=== PATIENT | male | born 1940 | race Caucasian/White ===

== ENCOUNTER 2018-09-07 09:06 | Emergency (ER) | payer MEDICARE, OTHER, SELFPAY ==
[2018-09-07 09:09] VITALS: BP 147/81; PULSE 75; RESP 18; TEMP 37.2; O2SAT 96; BMI 25.0
--- NOTE | 2018-09-07 09:20 | ED.VISSUMM ---
- ER Visit Summary Date of Service: 09/07/18 Chief Complaint: Right chest wall pain History of Present Illness: The patient is a 78 M who was given yesterday while hit the right side of his chest. He has no head injury no neck pain no loss of consciousness. He denies any other injury. He still has some pain of his chest this morning, went to get checked out. He did not his abdomen. He has pain only when he takes a deep breath but he is not short of breath. Pain is mild to moderate. Physical Examination: Not appear in acute distress. He ambulated to the emergency department quite well Moist mucous membranes, no obvious facial deformity No C-spine tenderness supple neck. Regular rate and rhythm without any obvious murmurs Clear lungs bilaterally speaking in full sentences without any obvious respiratory distress. He has reproducible right-sided chest wall pain but no obvious contusion. Abdomen soft and nontender no guarding or rebound Moves all extremities without any difficulty or pain. Skin does not show any obvious rashes or lesions, no trauma. Alert oriented ?3 with no gross focal deficit Emergency Department Course and Treatment: Chest x-ray with right rib series interpreted by me shows no fracture. Patient ambulated well into the emergency department he does not appear in distress. His lungs are clear. He will be discharged with reassurance. He does not require analgesia today. Disposition: Discharge stable condition Impression: Right-sided chest wall contusion This note was generated with [employer] dictation software. It may contain incorrect words, spelling, and punctuation that were not noted in review of the chart prior to signing ED Disposition - Plan for ED Patient: Disposition: Home or Assisted Living Chief Complaint: Chest Other Instructions: ED Contusion Chest Wall Referrals: NOT,DEFINED [NON-STAFF] - 3-5 Days if not improving
--- NOTE | 2018-09-07 09:40 | RAD_ITS ---
STUDY: X-RAY - UNILATERAL RIBS ( RIGHT ) WITH CHEST REASON FOR EXAM: Male, 78 years old. Posterolateral right-sided rib pain following a fall. TECHNIQUE - RIBS: 4 view(s) of the ribs. TECHNIQUE - CHEST: Single PA view of the chest. COMPARISON: None. FINDINGS - RIBS: There is fusion of the right eighth and ninth ribs anterolaterally. FINDINGS - CHEST: The lungs are clear and expanded. There is no demonstrated pleural abnormality. Normal size heart. Normal mediastinum and shashank. Normal visualized pulmonary arteries. Normal visualized aortic arch and descending thoracic aorta. Normal visualized thoracic spine. Normal visualized ribs, clavicles, and shoulders. There is no demonstrated abnormality of the visualized soft tissue structures of the upper abdomen. RAD/Ribs Uni Min 3V w/PA Chest IMPRESSION: RIBS: Normal x-ray examination of the ribs. CHEST: Normal x-ray examination of the chest. Electronically Signed: Johnny Mullen MD at 10:32 EST Tel [phone], Service support ,
[2018-09-07 10:14] VITALS: PULSE 66; RESP 16; O2SAT 99
== END 2018-09-07 10:15 | disposition home or self-care (01) ==
PROVIDERS: Emergency Provider Emergency Medicine; Family Provider Family Medicine; PCP Family Medicine
DX: S20.211A Contusion of right front wall of thorax, initial encounter (principal); R07.89 Other chest pain; W18.2XXA Fall in (into) shower or empty bathtub, initial encounter; Y93.E1 Activity, personal bathing and showering; Y92.9 Unspecified place or not applicable; Y99.9 Unspecified external cause status; E11.9 Type 2 diabetes mellitus without complications
CPT/HCPCS: 71101; 99282

== ENCOUNTER 2019-06-11 00:04 | Emergency (ER) | payer MEDICARE, OTHER, SELFPAY ==
[2019-06-11] VITALS (8 sets, daily range): BP systolic 100–157; BP diastolic 52–73; PULSE 63–79; RESP 12–18; TEMP 36.8; O2SAT 95–97; BMI 27.1
--- NOTE | 2019-06-11 00:24 | EKG12_ITS ---
Test Reason : CP Blood Pressure : / mmHG Vent. Rate : 073 BPM Atrial Rate : 073 BPM P-R Int : 202 ms QRS Dur : 086 ms QT Int : 384 ms P-R-T Axes : 041 036 033 degrees QTc Int : 423 ms Normal sinus rhythm Normal ECG Confirmed by EKTA CHAVEZ, NGOZI ([id number]), editor map TUYET GOLDEN ([id number]) on 06/15/2019 9:41:25 AM Referred By: DEVYN Confirmed By:JENNIFER DASH MD
--- NOTE | 2019-06-11 00:25 | RAD_ITS ---
STUDY: X-RAY CHEST REASON FOR EXAM: Male, 79 years old. Chest pain. TECHNIQUE: Single AP portable view of the chest. COMPARISON: September 07, 2018. FINDINGS: security monitor leads are present. The lungs are hyperexpanded. There is no obvious airspace consolidation, or pleural effusion. There is no demonstrated pleural abnormality. Normal size heart. Normal mediastinum and shashank. Normal visualized pulmonary arteries. There is atherosclerotic calcification of the aortic arch with tortuosity. There are diffuse degenerative changes of the visualized thoracic spine. Normal visualized ribs, clavicles, and shoulders. There is no demonstrated abnormality of the visualized soft tissue structures of the upper abdomen. RAD/Chest 1 View (Portable) IMPRESSION: No radiographic evidence of acute cardiopulmonary disease. Electronically Signed: Miladys Ordonez MD at 1:28 EDT , Service support ,
[2019-06-11] MEDS: Nitroglycerin SL (ED/IMG/CATH) 0.4 MG TABLET SUBLINGUAL ×2 (00:34→00:41)
[2019-06-11] MEDS: Aspirin 81 MG TAB.CHEW 324 MG PO (00:34)
[2019-06-11 00:40] LABS: Absolute Neutrophil Count 2.8 X10^3/uL (2.0-7.7); Basophil# 0.05 X10^3/uL; Basophil% 0.8 % (0-1); Eosinophils% 1.7 % (0-5); Hemoglobin 13.9 g/dL (13.0-16.5); Lymphocyte % 40.3 % (19-41); Mean Corp Hgb Conc 33.1 g/dL (32-36); Mean Corpuscular Hgb 30.5 pg (27.0-32.0); Mean Corpuscular Volume 92.1 fL (80-94); Mean Platelet Vol. 9.3 fl (6.2-12.0); Monocyte# 0.64 X10^3/uL; Monocyte% 10.7 % (0-10); NRBC Flagged by Analyzer 0 % (0-5); Neutrophil # 2.76 X10^3/uL (2.7-7.7); Neutrophil % 46.3 % (47-70); Platelet Count 172 K/mm3 (150-450); RBC Distribution Width CV 12.9 % (11.6-14.6); RBC Distribution Width SD 43.9 fl (35.1-43.9); Red Blood Count 4.56 M/mm3 (4.6-6.2)
[2019-06-11 00:54] LABS: Anion Gap 5 (5-15); BUN 13 mg/dL (7-18); BUN/Creat Ratio 12.3 RATIO (10-20); Calcium,Total 9.1 mg/dL (8.5-10.1); Chloride 105 mmol/L (98-107); Creatinine, Serum 1.06 mg/dL (0.70-1.30); EST Glomerular Filtration Rate 72 mL/min (>60); Est Glom Filt Rate - Afr Amer 87 mL/min (>60); Estimated Creatinine Clearance 62.02 ml/min; Glucose 99 mg/dL (74-106); Sodium Level 141 mmol/L (136-145)
--- NOTE | 2019-06-11 01:46 | ED.DCSUM_ITS ---
History of Present Illness Chief Complaint: Chest Pain Informant: Patient Onset: Today Context: Sudden Onset Timing: Continuous Quality: Pain Location: Left anterior chest radiating to axilla Current Severity: Mild Maximum Severity: Mild Worsened by: Nothing Relieved by: Nothing Associated Symptoms: No associated symptoms Narrative: Patient is a 79-year-old male with history of hypercholesterolemia and type 2 diabetes who presents with anterior left chest pain that started at 1900 while sitting. The pain radiated to his left axilla. He denies shortness of breath, dyspnea exertion, nausea or diaphoresis. He stated walking into the emergency department had no effect. He has no known history of coronary disease. He states he has stress test many years ago. He denies fever, chills night sweats. Denies rhinorrhea, congestion or postnasal drainage. Denies sore throat. Denies cough. He denies orthopnea or PND. He denies history of hiatal hernia or reflux. He denies black or maroon stool. He does have history of enlarged prostate. He denies any urinary symptoms. Prior similar symptoms: No Recent Illness/Hospitalization: No - Past Medical History (1) History of hypercholesterolemia Status: Acute (2) History of type 2 diabetes mellitus Status: Acute (3) History of BPH Status: Acute Past Medical History - Allergies and Home Meds Allergies/Adverse Reactions: Allergies Sulfa (Sulfonamide Antibiotics) Allergy (Verified 09/07/18 09:07) Fever and skin rash Tetanus Vaccines and Toxoid Allergy (Verified 09/07/18 09:07) Rash meperidine [From Demerol] Adverse Reaction (Verified 09/07/18 09:07) Vomiting Primary Care Physician: Perfecto Warner MD [Primary Care Provider] - Prior records reviewed: Yes Surgical History: noncontributory, - - 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 Denies: Palpitations, Heart racing Respiratory: Denies: Dyspnea, Cough, Dyspnea on exertion, Orthopnea, Paroxysmal nocturnal dyspnea Gastrointestinal: Denies: Abdominal pain, Nausea, Vomiting, Diarrhea, Melena, Hematochezia Genitourinary: Denies: Dysuria, Hematuria, Frequency Musculoskeletal: Denies: Myalgias, Arthralgias, Neck pain, Back pain, Swelling, Extremity Pain Skin: Denies: Rash, Wounds Neurological: Denies: Headache, Weakness, Numbness Hematologic: Denies: Easy bruising, Easy bleeding Physical Exam Vital Signs/Narrative: Vital Signs Temp Pulse Resp BP Pulse Ox 06/11/19 00:48 79 13 111/65 95 06/11/19 00:41 74 12 128/68 H 96 06/11/19 00:34 71 149/73 H 06/11/19 00:29 97 06/11/19 00:05 98.2 F 75 16 157/52 H 97 Inital Vital Signs reviewed: Yes General: Well nourished, Well developed, No Acute Distress Head: Normocephalic, Atraumatic Eyes: Perrl, EOMI. Negative for: Pale conjunctiva, Scleral icterus ENT: Moist mucous membranes, No rhinorrhea Neck: Supple, Nontender Cardiovascular: Regular rate, Regular rhythm, No murmurs Respiratory: No distress, CTA bilaterally, Chest nontender Abdomen: Soft, Nontender, Nondistended, Normal bowel sounds Back: Nontender, Normal Inspection. Negative for: CVA tenderness Extremities: Nontender, No edema, - - There is no asymmetry, swelling, discoloration, leg vein distention, palpable cords or tenderness along the distribution of the deep venous system.. Negative for: Calf Tenderness Skin: Normal color, No rash, No Trauma. Negative for: Cyanosis, Diaphoresis, Jaundice Neurological: Alert, Oriented x3, Cranial nerves II-XII grossly intact, Normal Strength, Normal Sensation Psychological: Normal affect, Normal Mood Diagnostic/Tx/Re-eval Impressions Chest X-Ray 06/11/19 00:25 IMPRESSION: No radiographic evidence of acute cardiopulmonary disease. Electronically Signed: Miladys Ordonez MD at 1:28 EDT , Service support , 06/11/19 00:25 Chest 1 View (Portable) [RAD] Stat Laboratory Results 06/11/19 06/11/19 06/11/19 00:20 00:20 03:15 WBC 6.0 RBC 4.56 L Hgb 13.9 Hct 42.0 MCV 92.1 MCH 30.5 MCHC 33.1 RDW Std Deviation 43.9 RDW Coeff of Daisy 12.9 Plt Count 172 MPV 9.3 Immature Gran % (Auto) 0.200 Neut % (Auto) 46.3 L Lymph % (Auto) 40.3 [place] % (Auto) 10.7 H Eos % (Auto) 1.7 Baso % (Auto) 0.8 Absolute Neuts (auto) 2.8 Absolute Lymphs (auto) 2.40 Nucleated RBC % 0 Sodium 141 Potassium 4.0 Chloride 105 Carbon Dioxide 31.0 Anion Gap 5 BUN 13 Creatinine 1.06 Estim Creat Clear Calc 62.02 Est GFR (MDRD) Af Amer 87 Est GFR (MDRD) Non-Af 72 BUN/Creatinine Ratio 12.3 Glucose 99 Calcium 9.1 Troponin I < 0.015 < 0.015 First troponin was with continuous pain for 5.5 hours. 3-hour delta is 0. Repeat EKG was normal. With heart score of 3 he is low risk and with 2 normal EKGs and 2 normal troponin and a delta of 0 he will be discharged home to follow-up with his primary care physician. - Rhythm Strip Rhythm Strip: Sinus Rhythm Rate: 76 Ectopy: None - EKG Initial EKG Interpretation: Sinus Rhythm - Normal sinus rhythm with ventricular rate of 73. AZ interval is 202 ms. QRS duration 86 ms. QT duration 384 ms. [place] is normal. The EKG is normal. Follow-up EKG Interpretation: Sinus Rhythm - Sinus rhythm with ventricular rate of 62. AZ interval is slightly prolonged at 216 ms. QRS duration 84 ms. QT duration 404 ms. [place] is normal. EKG reveals a sinus rhythm first-degree AV block. The AZ interval was slightly prolonged on the initial but not long enough to be considered a first-degree heart block. The EKG is unchanged from initial. Prior: Unchanged - Medical Decision Making Differential diagnosis is cardiac ischemia versus esophageal spasm versus esophagitis/gastritis versus pneumonia Patient received aspirin. He declined third nitro since first to had no effect. Patient's heart score is 3. His first troponin and EKG were normal. Recommended repeat troponin EKG at 3 hours. Differential diagnosis is cardiac ischemia, esophageal reflux, hiatal hernia, GERD, pneumonia With heart score of 3 2 normal EKGs to normal troponin and a delta of 0 with atypical pain not exacerbated by activity and no improvement with nitro patient was informed the cause of his chest pain is unknown. He is appropriate for ou tpatient follow-up and testing. ED Disposition - Plan for ED Patient: Disposition: Home or Assisted Living Diagnosis: Left-sided chest pain Instructions: CHEST PAIN, Uncertain Cause Referrals: Perfecto Warner MD [Primary Care Provider] - 3-5 Days
--- NOTE | 2019-06-11 03:12 | EKG12_ITS ---
Test Reason : REPEAT CP Blood Pressure : / mmHG Vent. Rate : 062 BPM Atrial Rate : 062 BPM P-R Int : 216 ms QRS Dur : 084 ms QT Int : 404 ms P-R-T Axes : 043 037 055 degrees QTc Int : 410 ms Sinus rhythm with 1st degree A-V block Otherwise normal ECG Confirmed by EKTA CHAVEZ, NGOZI ([id number]), editorial cartoonist TUYET GOLDEN ([id number]) on 06/15/2019 9:42:11 AM Referred By: DEVYN Confirmed By:JENNIFER DASH MD
== END 2019-06-11 04:35 | disposition home or self-care (01) ==
PROVIDERS: Emergency Provider Emergency Medicine; Family Provider Family Medicine; PCP Family Medicine
DX: R07.89 Other chest pain (principal); I44.0 Atrioventricular block, first degree; E78.00 Pure hypercholesterolemia, unspecified; E11.9 Type 2 diabetes mellitus without complications; N40.0 Benign prostatic hyperplasia without lower urinary tract symptoms; Z85.47 Personal history of malignant neoplasm of testis; Z79.84 Long term (current) use of oral hypoglycemic drugs; Z79.899 Other long term (current) drug therapy
CPT/HCPCS: 36415; 71045; 80048; 84484; 85025; 93005; 99285; A4216

== ENCOUNTER 2020-09-26 21:59 | Emergency (ER) | payer MEDICARE, OTHER, SELFPAY ==
[2019-06-11 00:05] VITALS: BMI 27.1
[2020-09-26 22:00] VITALS: BP 156/88; PULSE 74; RESP 16; TEMP 37; O2SAT 98; BMI 26.8
--- NOTE | 2020-09-26 22:24 | EKG12_ITS ---
Test Reason : CP Blood Pressure : / mmHG Vent. Rate : 075 BPM Atrial Rate : 075 BPM P-R Int : 218 ms QRS Dur : 082 ms QT Int : 374 ms P-R-T Axes : 053 037 038 degrees QTc Int : 417 ms Sinus rhythm with 1st degree A-V block Otherwise normal ECG Confirmed by EKTA CHAVEZ, NGOZI ([id number]), website/blog editor DANNY MAYO ([id number]) on 10/01/2020 11:09:33 AM Referred By: TOYA Confirmed By:JENNIFER DASH MD
--- NOTE | 2020-09-26 22:25 | RAD_ITS ---
patient with intermittent chest pain that started this morning. started on the right side now has moved to middle of his chest. patient states has the pain about every hour and pain only lasts a few minutes. EXAMINATION/TECHNIQUE: XR Chest 1 View: COMPARISON: June 11, 2019 FINDINGS: LINES/DEVICES: None. LUNGS: No consolidation, edema or effusion. No pneumothorax. MEDIASTINUM AND CARDIOVASCULAR STRUCTURES: Cardiac silhouette not enlarged. Central airways and mediastinal contour are unremarkable. BONES AND SOFT TISSUES: Unremarkable. RAD/Chest 1 View (Portable) IMPRESSION: No radiographic evidence of acute cardiopulmonary disease. at 2247 Reported and signed by: Es Salas DO Electronically Signed: Es Salas DO at 22:45 EST Tel , Service support ,
[2020-09-26 22:26] VITALS: O2SAT 98
[2020-09-26 22:43] LABS: Absolute Lymphocyte Count 1.93 X10^3/uL (0.83-4.51); Absolute Neutrophil Count 3.7 X10^3/uL (2.0-7.7); Basophil# 0.06 X10^3/uL; Basophil% 0.9 % (0-1); Eosinophil# 0.07 X10^3/uL; Eosinophils% 1.1 % (0-5); Hematocrit 41.9 % (40-54); Lymphocyte # 1.93 X10^3/ul (4.0); Lymphocyte % 30.5 % (19-41); Mean Corp Hgb Conc 33.4 g/dL (32-36); Mean Corpuscular Hgb 30.5 pg (27.0-32.0); Mean Corpuscular Volume 91.3 fL (80-94); Mean Platelet Vol. 9.5 fl (6.2-12.0); Monocyte# 0.56 X10^3/uL; Monocyte% 8.8 % (0-10); NRBC Flagged by Analyzer 0 % (0-5); Neutrophil % 58.5 % (47-70); Platelet Count 181 K/mm3 (150-450); RBC Distribution Width CV 12.7 % (11.6-14.6); RBC Distribution Width SD 42.2 fl (35.1-43.9); Red Blood Count 4.59 M/mm3 (4.6-6.2); White Blood Count 6.3 K/mm3 (4.4-11.0)
--- NOTE | 2020-09-26 22:49 | ED.VIS.GEN ---
History of Present Illness Chief Complaint: Chest Pain Narrative: Patient presents with chest pain that started earlier this morning he is describing periods of 1 to 2 seconds of sharp pain on his right chest that completely goes away. He is currently asymptomatic. There is no radiation of the pain. He has no back pain or tearing sensation he has no pleuritic component. He has no calf pain or leg pain he has no DVT or PE risk factors. Past medical history: Hypercholesterolemia, type 2 diabetes Medications: Reviewed Social history: Noncontributory Review of systems: All systems negative except as indicated General: Denies: Fever Eyes: Denies: Visual changes - bilaterally ENT: Denies: Rhinorrhea, Sore throat Cardiovascular: Chest pain as in HPI Respiratory: Denies: Dyspnea, Cough Gastrointestinal: Denies: Abdominal pain, Nausea, Vomiting Genitourinary: Denies: Dysuria Musculoskeletal: Denies: Myalgias Skin: Denies: Rash Neurological: Denies: Headache, no focal weakness Psych: Reports: negative Hematologic: Denies: Easy bruising, Easy bleeding Physical exam General: Well nourished, Well developed, No Acute Distress Head: Normocephalic, Atraumatic Eyes: Conjunctiva not pale ENT: Moist mucous membranes Neck: Supple, Nontender, No lymphadenopathy Cardiovascular: Regular rate, Regular rhythm Respiratory: No distress, CTA bilaterally Abdomen: Soft, Nontender, Nondistended Back: Nontender, Normal Inspection. Negative for: CVA tenderness Extremities: Nontender, No edema Skin: Normal color, No rash Neurological: Alert, Normal Strength, Normal Sensation Psychological: Normal affect Past Medical History - Allergies and Home Meds Allergies/Adverse Reactions: Allergies Sulfa (Sulfonamide Antibiotics) Allergy (Verified 09/26/20 22:03) Fever and skin rash Tetanus Vaccines and Toxoid Allergy (Verified 09/26/20 22:03) Rash meperidine [From Demerol] Adverse Reaction (Verified 09/26/20 22:03) Vomiting Primary Care Physician: Perfecto Warner MD [Primary Care Provider] - 2 Days Surgical History: noncontributory, - - 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 Normal [place] and QTc intervals. No ischemic changes. Interpreted by emergency doctor. - Medical Decision Making She has a heart score of 3. Work-up is otherwise unremarkable I am not worried about cardiac etiology with 1 to 2-second episodes of sharp right sided stabbing pain. I am reassured with the normal EKG and troponin. Patient can follow-up with his doctor as needed. He has no PE or DVT risk factors. ED Disposition - Plan for ED Patient: Disposition: Home or Assisted Living Diagnosis: Chest pain Instructions: ED Chest Pain, Uncertain Cause Referrals: Perfecto Warner MD [Primary Care Provider] - 2 Days
[2020-09-26 23:12] LABS: Anion Gap 5 (5-15); BUN 17 mg/dL (7-18); Calcium,Total 8.8 mg/dL (8.5-10.1); Chloride 102 mmol/L (98-107); Creatinine, Serum 1.06 mg/dL (0.70-1.30); EST Glomerular Filtration Rate 71 mL/min (>60); Est Glom Filt Rate - Afr Amer 86 mL/min (>60); Estimated Creatinine Clearance 61.01 ml/min; Glucose 94 mg/dL (74-106); Potassium 3.9 mmol/L (3.5-5.1); Sodium Level 137 mmol/L (136-145)
[2020-09-26 23:17] VITALS: BP 96/78; PULSE 72; RESP 15; O2SAT 97
== END 2020-09-26 23:24 | disposition home or self-care (01) ==
PROVIDERS: Emergency Provider Emergency Medicine; PCP Family Medicine
DX: R07.9 Chest pain, unspecified (principal); E11.9 Type 2 diabetes mellitus without complications; Z87.891 Personal history of nicotine dependence; Z85.47 Personal history of malignant neoplasm of testis; Z90.79 Acquired absence of other genital organ(s); Z79.84 Long term (current) use of oral hypoglycemic drugs
CPT/HCPCS: 71045; 80048; 84484; 85025; 93005; 99284; A4216

== ENCOUNTER 2021-05-22 19:57 | Emergency (ER) | payer MEDICARE, OTHER, SELFPAY ==
[2021-05-22 19:58] VITALS: BP 167/87; PULSE 83; RESP 16; TEMP 36.4; O2SAT 100; BMI 25.0
--- NOTE | 2021-05-22 20:05 | RAD_ITS ---
STUDY: X-RAY - LEFT FOOT CLINICAL: Male, 81 years old. INJURY -- 5TH TOE PATIENT KICKED FOOT INTO DOOR COMPLAINING OF LEFT 5TH TOE PAIN. TECHNIQUE: 3 view(s) of the foot. COMPARISON: None. FINDINGS: Normal talus, calcaneus, and tarsal bones. Normal visualized subtalar, talonavicular, calcaneocuboid, tarsal and tarsometatarsal articulations. Normal metatarsi. Normal metatarsophalangeal joint of the great toe. Normal tibial and fibular sesamoid bones. Normal interphalangeal joint of the great toe. Normal phalanges of the great toe. Normal second through fifth metatarsophalangeal joints. The IP joints of the lesser toes are mildly narrowed. The soft tissue structures are unremarkable. There is no demonstrated fracture. RAD/Foot min 3 Views IMPRESSION: No visualized acute process Electronically Signed: Garrett Bello MD at 21:04 EDT , Service support ,
--- NOTE | 2021-05-22 21:57 | EDS_ITS ---
HPI History of Present Illness Chief Complaint: Lower Extremity Injury Detail of Chief Complaint: Injury to left foot that occurred yesterday Informant: patient Narrative Narrative: Patient presents to the emergency department complaint of injury to left foot that occurred yesterday. Patient states he accidentally kicked a closet door with his foot. Patient initially did not think much of it but today he noticed increased redness and swelling and became concerned. Patient denies any fever or chills. Patient is a diabetic. PFSH PFSH Home Medications Tamsulosin Hcl 0.4 mg PO DAILY 09/07/18 [History Last Taken Unknown] finasteride 5 mg PO DAILY 09/07/18 [History Last Taken Unknown] metformin 1,000 mg PO DAILY 09/07/18 [History Last Taken Unknown] cephalexin 500 mg PO Q6 #40 capsule 05/22/21 [Rx Last Taken Unknown] Allergy/AdvReac Type Severity Reaction Status Date / Time Sulfa (Sulfonamide Allergy Fever and Verified 05/22/21 20:00 Antibiotics) skin rash Tetanus Vaccines and Toxoid Allergy Rash Verified 05/22/21 20:00 meperidine [From Demerol] AdvReac Vomiting Verified 05/22/21 20:00 Social History Smoking Status: Former smoker ROS ROS ED Constitutional Constitutional ED: Reports systems reviewed and no addt'l complaints, except as documented; Denies body ache(s), change in weight or chills Eyes Eyes: Denies acute decrease in peripheral vision, change in vision, double vision or loss of vision ENT ENT ED: Reports none; Denies ear pain, lip swelling, loss taste/smell, neck pain, otalgia or sore throat Cardiovascular Cardiovascular: Reports none; Denies abdominal pain, chest pain with activity, leg edema, lightheadedness, palpitations, rapid heart rate or syncope Respiratory/Chest Respiratory/Chest: Reports none; Denies change in mental status, dry cough, dyspnea, hemoptysis, shortness of breath at rest or shortness of breath with exertion Gastrointestinal Gastrointestinal: Reports none; Denies abdominal pain, change in stool character, diarrhea, hematemesis, hematochezia, melena, rectal bleeding or vomiting Genitourinary Genitourinary ED: Reports none; Denies abdominal discomfort, anuria, dysuria, genital pain or polyuria Musculoskeletal Musculoskeletal: Reports none and other Details: Left foot pain ; Denies arthralgias, back pain, difficulty walking, extremity pain, muscle weakness or myalgias Integumentary Reports none; Denies abscess or rash Neurologic Neurologic: Reports none; Denies abnormal gait, confusion, focal weakness, frequent falls, headache(s), loss of vision, numbness, paresthesias, radicular pain, vertigo or weakness Psychiatric Psychiatric: Reports systems reviewed and no addt'l complaints, except as documented and none; Denies behavioral changes, confusion, difficulty concentrating, hallucinations, suicidal ideation, tactile hallucinations or visual hallucinations Endocrine Endocrinology: Denies none, cold intolerance, excessive sweating, fatigue or heat intolerance Hematologic/Lymphatic Hematologic/Lymphatic: Reports none; Denies anemia, easy bleeding or easy bruising Allergic/Immunologic Allergic/Immunologic ED: Denies as per HPI, none, lip swelling, mouth swelling, throat swelling, tongue swelling or hives EXAM Physical Exam Const Vital Signs: 05/22/21 19:58 Temperature 97.5 F L Temperature Source Temporal Pulse Rate 83 Respiratory Rate 16 Blood Pressure 167/87 H Blood Pressure Mean 113 Pulse Ox 100 Oxygen Delivery Method Room Air Positive well nourished and well developed General Appearance ED: well developed and NAD HEENT Reports TM's clear and moist mucous membranes normocephalic and atraumatic; Negative for trauma or tenderness Tympanic Membrane ED: Yes TM's clear Eyes PERRL and EOMs intact bilaterally General Eye ED: Negative for pale conjunctiva or scleral icterus Neck no lymphadenopathy, supple and no JVD General: Negative for tenderness Chest Wall inspection of chest normal and palpation of chest normal Chest: Negative for tenderness Resp normal respiratory effort and clear to auscultation bilaterally Effort and Inspection: Negative for respiratory distress or pain with movement Auscultation: Negative for rhonchi, wheezes or diminished lung sounds Cardio regular rate, regular rhythm, S1 normal heart sound, S2 normal heart sound and no murmurs Peripheral Pulses: pulses 2+ throughout GI normal to inspection, nondistended, normoactive bowel sounds, soft to palpation, non-tender, non-distended and no masses Back/Spine no CVA tenderness and no thoracic nor lumbar tenderness Extremity Extremity Narrative: Evaluation of the left foot does reveal erythema and some ecchymosis to the fifth toe with erythema extending onto the distal portion of the foot and the fifth MTP joint. No obvious deformity. Neurovascular intact. General Extremety ED: Negative for edema General Extremity: Negative for edema Neuro oriented x3, CN's II-XII intact bilaterally, no sensory deficits noted and gait normal Sensorium / Orientation: awake, alert, oriented to person, oriented to place and oriented to time Motor Exam: strength 5/5 throughout and strength abnormal Psych mental status grossly normal Skin no rashes or lesions noted and no wounds MDM MDM MDM Narrative Medical decision making narrative: X-rays unremarkable for fracture. I am concerned he may be developing a cellulitis. Patient will be started on Keflex. Patient advised to use ibuprofen or Tylenol for discomfort. Patient to follow- up for wound check in 3 to 5 days with his primary care physician. Patient to return if increasing pain, redness, swelling, fevers, chills, or condition should worsen anyway. Radiography Diagnostic Testing: Radiology Impression Foot X-Ray 05/22/21 20:05 IMPRESSION: No visualized acute process Electronically Signed: Garrett Bello MD at 21:04 EDT , Service support , Three-view x-rays left foot obtained interpreted by myself as no acute fractures or dislocations. Radiology in agreement. Discharge Plan Triage Chief Complaint: Lower Extremity Injury ED Provider: Jose Desir Dx/Rx/DC Orders Clinical Impression: Contusion of foot, Cellulitis Instructions: ED Cellulitis, ED Foot Contusion Prescriptions: New cephalexin [cephalexin] 500 MG capsule 500 mg PO Q6 Qty: 40 RF: 0 No Action metformin 500 MG tablet 1,000 mg PO DAILY RF: 0 finasteride 5 MG tablet 5 mg PO DAILY RF: 0 Tamsulosin Hcl 0.4 MG capsule 0.4 mg PO DAILY RF: 0 Primary Care Provider: Perfecto Warner Referrals: Perfecto Warner MD [Primary Care Provider] - Disposition Disposition: Home, Self Care
[2021-05-22] MEDS: Cephalexin 250 MG Capsule 500 MG PO (22:17)
== END 2021-05-22 22:23 | disposition home or self-care (01) ==
LOC: ED 22:11
PROVIDERS: Emergency Provider Emergency Medicine; PCP Family Medicine
DX: S90.32XA Contusion of left foot, initial encounter (principal); W22.09XA Striking against other stationary object, initial encounter; Y93.9 Activity, unspecified; Y92.9 Unspecified place or not applicable; Y99.9 Unspecified external cause status; L03.116 Cellulitis of left lower limb; E11.9 Type 2 diabetes mellitus without complications; Z79.84 Long term (current) use of oral hypoglycemic drugs; Z87.891 Personal history of nicotine dependence
CPT/HCPCS: 73630; 99283

== ENCOUNTER → 2022-01-13 | Outpatient (CLI) | payer MEDICARE, OTHER, SELFPAY ==
--- NOTE | 2022-01-13 | PROSBIL_PTH ---
PATIENT: TANISHA SALTER LOC: [facility] U#:[id number] AGE/SX: 81/M ROOM: RE01/13/[address]: Dr. Parish Art MD : 1940 BED: DIS: 01/13/2022 SPEC #: [id number] RECD: 01/13/22 16:15 STATUS: JEREMIE ROUSEAshley #: [id number] SALUD: 01/13/22 00:[address]: Parish Art DEPT: SURGICAL PATHOLOGY RECD BY: Pratibha Caldwell ENTERED: 01/14/22 08:07 SP TYPE: PROST BX ELISA DR: Dr. Perfecto Warner MD Tissues: A - PROSTATE RIGHT B - PROSTATE RIGHT C - PROSTATE RIGHT D - PROSTATE LEFT E - PROSTATE LEFT F - PROSTATE LEFT Procedures: PROSTATE BX HEADER OPERATION: Prostate biopsy PRE-OP DIAGNOSIS: Elevated PSA TISSUE SUBMITTED: A - Right apex, B - Right mid, C - Right base, D - Left apex, E - Left mid, F - Left base MICROSCOPIC DIAGNOSIS A. Right prostate, apex, core biopsy: Prostatic tissue, negative for malignancy. B. Right prostate, mid, core biopsy: Prostatic tissue, negative for malignancy. C. Right prostate, base, core biopsy: Prostatic tissue, negative for malignancy. D. Left prostate, apex, core biopsy: Prostatic tissue, negative for malignancy. E. Left prostate, mid, core biopsy: Prostatic tissue, negative for malignancy. F. Left prostate, base, core biopsy: Prostatic adenocarcinoma. Tuckerman grade: 3+4=7 Number of cores involved: 08/31 Proportion of tissue involved: ~50% Perineural invasion: Not identified. Greatest tumor length: 0.4 cm SJ:luciana 01/15/2022 COMMENT Case has been reviewed in consultation with Dr. Martinez who concurs with the above diagnosis. IDC:AM MICROSCOPIC DESCRIPTION Slides are reviewed. GROSS DESCRIPTION A - Received is one container designated prostate, right apex. The specimen consists of one elongated fragment of light carney-white soft tissue measuring 1 cm in length and 0.1 cm in diameter. The specimen is totally submitted in one cassette. B - Received is one container designated prostate, right mid. The specimen consists of one elongated fragment of light carney-white soft tissue measuring 0.9 cm in length and 0.1 cm in diameter. The specimen is totally submitted in one cassette. C - Received is one container designated prostate, right base. The specimen consists of one elongated fragment of light carney-white soft tissue measuring 0.8 cm in length and 0.1 cm in diameter. The specimen is totally submitted in one cassette. D - Received is one container designated prostate, left apex. The specimen consists of one elongated fragment of light carney-white soft tissue measuring 0.8 cm in length and 0.1 cm in diameter. The specimen is totally submitted in one cassette. E - Received is one container designated prostate, left mid. The specimen consists of one elongated fragment of light carney-white soft tissue measuring 1 cm in length and 0.1 cm in diameter. The specimen is totally submitted in one cassette. F - Received is one container designated prostate, left base. The specimen consists of one elongated fragment of light carney-white soft tissue measuring 0.9 cm in length and 0.1 cm in diameter. The specimen is totally submitted in one cassette. / SJ:rg 01/14/2022 TC:0 CPT: G0146
== END | disposition home or self-care (01) ==
LOC: LABSPEC 16:49
PROVIDERS: PCP Family Medicine; Visit Provider Urology
DX: C61 Malignant neoplasm of prostate (principal)
CPT/HCPCS: 88305; G0416

== ENCOUNTER → 2022-02-12 | Outpatient (CLI) | payer MEDICARE, OTHER, SELFPAY ==
--- NOTE | 2022-02-12 13:57 | MRI_ITS ---
MR Pelvis Male WO/W Contrast 02/12/2022 2:25 PM COMPARISON: None CLINICAL HISTORY: 81-year-old male with known prostate cancer. TECHNIQUE: Standard prostate MRI protocol was used before and after administration of 18 cc of Dotarem. FINDINGS: Prostate volume: 31 cc PSA density: PSA level not provided. Length of membranous urethra: 12 mm Post-biopsy hemorrhage: Yes Multiparametric MR evaluation: Heterogeneous appearance of the central gland is consistent with benign prostatic hyperplasia. Lesion 1: LOCATION - 1.3 x 0.9 cm moderately T2 hypointense lesion in the left lateral transitional zone at mid gland which is bright on DWI and dark on ADC map. There is extraprostatic extension by 3 mm laterally. T2 - 4 DWI - 4 DCE - positive Overall PI-RADS v2 score = 4 Capsular margin and neurovascular bundle: Extraprostatic extension by 3 mm laterally to the left. Seminal vesicles: Questionable involvement of the left seminal vesicle. Lymph nodes: Enlarged 1.5 cm left external iliac node. Bones: No suspicious lesions in the field of view. MRI/Pelvis W/WO Contrast IMPRESSION: 1.3 cm PI-RADS 4 lesion in the left lateral TZ at mid gland with extraprostatic extension laterally by 3 mm, left external iliac lymphadenopathy and questionable involvement of the left seminal vesicle. Electronically Signed: Dmitry Aguilar MD at 23:40 EDT ,
[2022-02-12 14:21] LABS: CREATININE FINGERSTICK 0.9 mg/dL (0.70-1.30); EGFR FINGERSTICK > 60.0000 mL/min (>60)
== END | disposition home or self-care (01) ==
PROVIDERS: PCP Family Medicine; Visit Provider Student in an Organized Health Care Education/Training Program
DX: C61 Malignant neoplasm of prostate (principal)
CPT/HCPCS: 72197; A9575

== ENCOUNTER 2022-04-16 09:31 | Day surgery (SDC) | payer MEDICARE, OTHER, SELFPAY ==
[2022-04-16 09:50] VITALS: BP 146/84; PULSE 72; RESP 16; TEMP 36.2; O2SAT 99; BMI 24.9
[2022-04-16] MEDS: Lactated Ringers 1,000 ML 15 ML IV (10:00)
[2022-04-16 10:21] LABS: Bedside Glucose 127 mg/dL (74-106)
[2022-04-16] MEDS: Cefazolin 2 GM in 0.9% Normal Saline 100 ML IV (12:08)
--- NOTE | 2022-04-16 12:19 | DCINST_ITS ---
Discharge Instructions Diet Discharge Diet: No restrictions Activity Discharge Activity: Return to Normal Activity and No Restrictions Follow Up Care Test Results: Test results from this visit will be discussed in further detail at your follow- up appointment, if applicable. Discharge Plan Admission Primary Reason for Your Visit: prostate markers Attending Provider: Parish Art Primary Care Provider: Perfecto Warner Discharge Orders/Prescriptions Prescriptions: New ciprofloxacin HCl [Cipro] 500 mg tablet 500 mg PO BID Qty: 10 0RF Continued pravastatin 20 mg tablet 20 mg PO DAILY metformin 500 MG tablet 500 mg PO DAILY finasteride 5 MG tablet 5 mg PO DAILY Tamsulosin Hcl 0.4 MG capsule 0.4 mg PO BID ciprofloxacin HCl 500 mg tablet 500 mg PO BID Referrals / Follow Up: Perfecto Warner MD [Primary Care Provider] - Parish Art MD [Med Staff - Active Staff] - Disposition Disposition (needs filled in before D/C Order can be placed): Home, Self Care
--- NOTE | 2022-04-16 12:19 | PCM.HP.STD ---
HPI - General General Date of Service: 04/16/22 HPI Narrative TANISHA SALTER, is a 82 M who presents for placement for gold markers and spacer [facility] Medical History (Updated 04/09/22 @ 10:12 by Rose Mary Ordonez) Arthritis Back pain Cancer Diabetes High cholesterol Testicular cancer Wears dentures Home Medications Tamsulosin Hcl 0.4 mg PO BID 09/07/18 [History Last Taken 04/16/22] finasteride 5 mg tablet 5 mg PO DAILY 09/07/18 [History Last Taken Unknown] metformin 500 mg tablet,extended release 24 hr 500 mg PO DAILY 09/07/18 [History Last Taken Unknown] pravastatin 20 mg tablet 20 mg PO DAILY 01/30/22 [History Last Taken Unknown] ciprofloxacin HCl 500 mg tablet 500 mg PO BID 04/09/22 [History Last Taken Unknown] ciprofloxacin HCl 500 mg tablet (Cipro) 500 mg PO BID #10 tabs 04/16/22 [Rx Last Taken Unknown] Allergy/AdvReac Type Severity Reaction Status Date / Time Sulfa (Sulfonamide Allergy Fever and Verified 04/16/22 09:49 Antibiotics) skin rash Tetanus Vaccines and Toxoid Allergy Rash Verified 04/16/22 09:49 meperidine [From Demerol] AdvReac Vomiting Verified 04/16/22 09:49 Family History Father Heart disease Diabetes Mother Myocardial infarction Alzheimer disease Grandmother Cancer Sister Breast cancer Surgical History (Updated 04/09/22 @ 10:12 by Rose Mary Ordonez) History of removal of testicle Hx of knee surgery Social History Smoking Status: Never smoker Tobacco: How many years used: 30 alcohol intake: current alcohol intake frequency: holidays/special occasions only substance use type: does not use diet: diabetic Vital Signs Vital Signs Vital Signs: 04/16/22 09:50 04/16/22 09:50 Temperature 97.2 F L Temperature Source Temporal Pulse Rate 72 Respiratory Rate 16 Respiratory Pattern Normal Blood Pressure 146/84 H Blood Pressure Mean 104 Blood Pressure Source Monitor Blood Pressure Position Semi-Fowlers Blood Pressure Location Left Arm Pulse Ox 99 Oxygen Delivery Method Room Air Weight Weight: 83.461 kg Body Mass Index (BMI) 24.9 Results Lab / Micro Data Labs: Laboratory Results - last 24 hr 04/16/22 09:56: POC Glucose 127 H
--- NOTE | 2022-04-16 12:20 | OP.PCM_ITS ---
Report of Operation Date of Procedure: 04/16/22 Pre-Operative Diagnosis: prostate cancer Post-Operative Diagnosis: same Surgery/Procedure Performed:: gold markers and spacer gel matrix Description of Surgical Findings:: Patient was taken back to the operating room after smooth induction of anesthesia he was placed supine on the table. The genitals and perineum were prepped and draped in usual sterile fashion. I then introduced a biplanar ultrasound probe into the rectum and performed ultrasonography and identified the Denonvilliers' fascia the prostate mid base and apex and seminal vesicles. The spacer gel mix was then prepared on the back table per manufactures instruction. Under ultrasound guidance in the midline perineum a bevel needle down we advanced through the perineum below the prostate into the space of Denonvilliers' fascia. This space which could be identified by ultrasound with a bright white layer between the prostate and the rectum. I then injected a puff of normal saline to identify the space further. After I confirmed that the needle was in the correct space in the mid prostate and the space of Denonvilliers' fascia between the rectum and the prostate. Then over the course of 15 seconds the gel matrix was injected slowly there was nice separation between the prostate and the rectum at the gel matrix was injected. The position of the gel matrix was confirmed by ultrasound. Then the injection needle was removed intact. The penis and testicles were prepped and draped in usual sterile fashion, ultrasound probe was placed into the rectum and biplanar ultrasound was performed on the prostate. Identified the base mid and apex of the prostate identified the transition zone prostate. Then using a needle the first outboard motor inspector was placed into the right base of the prostate, the second outboard motor inspector was placed in the left base of the prostate, and the third core marker was placed in the right apex of the prostate after all 3 markers were placed the placement of the markers were confirmed by ultrasonography. Patient's perineum was cleaned patient was taken out of stirrups and then taken back to the PACU in good condition. Surgeon: Parish Art Type of Anesthesia: General
[2022-04-16] MEDS: 0.9% Normal Saline (Pres. free 10 ML Vial (12:26)
[2022-04-16 12:40] VITALS: BP 122/73; BP 146/84; PULSE 69; RESP 16; TEMP 36.2; O2SAT 98
[2022-04-16 12:45] VITALS: BP 122/72; BP 146/84; PULSE 63; RESP 16; O2SAT 98
[2022-04-16 13:00] VITALS: BP 125/75; BP 146/84; PULSE 63; RESP 16; O2SAT 98
[2022-04-16 13:05] VITALS: BP 146/84; PULSE 64; RESP 16; TEMP 36.3; O2SAT 99
[2022-04-16 13:20] VITALS: BP 146/84
== END 2022-04-16 13:38 | disposition home or self-care (01) ==
LOC: SDC 09:32 → AC 09:33
PROVIDERS: PCP Family Medicine; Visit Provider Urology
PROC: (CPT 55874; principal; 2022-04-16 11:30)
DX: C61 Malignant neoplasm of prostate (principal); C77.5 Secondary and unspecified malignant neoplasm of intrapelvic lymph nodes; E11.9 Type 2 diabetes mellitus without complications; R97.20 Elevated prostate specific antigen [PSA]; E78.00 Pure hypercholesterolemia, unspecified; Z79.84 Long term (current) use of oral hypoglycemic drugs; Z79.899 Other long term (current) drug therapy; M19.90 Unspecified osteoarthritis, unspecified site
CPT/HCPCS: 55876; 55874; 00902; 82962; J7120; J2405; J3490

== ENCOUNTER → 2022-04-22 | Outpatient (CLI) | payer MEDICARE, OTHER, SELFPAY ==
--- NOTE | 2022-04-22 12:23 | MRI_ITS ---
MR Prostate WO/W Contrast 04/22/2022 12:54 PM COMPARISON: 02/12/2022 CLINICAL HISTORY: 82 year old man with prostate cancer. TECHNIQUE: Axial T1-weighted and high-resolution axial T2-weighted MR images of the pelvis were obtained. Images were acquired for planning of radiation therapy. MRI/Pelvis W/WO Contrast IMPRESSION: 1) MR imaging scan done for planning of radiation therapy of prostate cancer. 2) Heterogeneous appearance of the gland is at least in part due to the known prostate cancer, as well as being consistent with benign prostatic hyperplasia. 3) No seminal vesicle involvement 4) No definite extraprostatic extension 5) Suspicious left external iliac lymphadenopathy END OF IMPRESSION: Electronically Signed: Dmitry Aguilar MD at 23:04 EDT ,
[2022-04-22 13:05] LABS: EGFR FINGERSTICK > 60.0000 mL/min (>60)
== END | disposition home or self-care (01) ==
LOC: MRI 12:23
PROVIDERS: PCP Family Medicine; Referring Provider Student in an Organized Health Care Education/Training Program; Visit Provider Student in an Organized Health Care Education/Training Program
DX: C61 Malignant neoplasm of prostate (principal); C77.5 Secondary and unspecified malignant neoplasm of intrapelvic lymph nodes
CPT/HCPCS: 72197; A9575

== ENCOUNTER 2022-05-24 01:30 | Emergency (ER) | payer MEDICARE, OTHER, SELFPAY ==
[2022-05-24 01:37] VITALS: BP 151/77; PULSE 64; RESP 18; TEMP 36.6; O2SAT 100; BMI 24.7
--- NOTE | 2022-05-24 02:10 | EX.ED.DYSGE1 ---
HPI History of Present Illness Chief Complaint: Complaint Narrative Narrative: Patient is an 82-year-old male with history of type 2 diabetes BPH and prostate cancer. He is currently undergoing radiation for his cancer. He states that he is intermediate through and over the last few days has noticed that all he does is dribble. He states he feels that he can never completely empty his bladder. He brought these issues up with his oncologist who recommended he see his urologist for possible Zavala catheter placement. Patient states today he is going to see his urologist next week but he felt like his symptoms were progressing and therefore he comes to the hospital for evaluation [facility] Medical History Arthritis Back pain Cancer Diabetes High cholesterol Testicular cancer Wears dentures Home Medications Tamsulosin Hcl 0.4 mg PO BID 09/07/18 [History Last Taken 04/16/22] finasteride 5 mg tablet 5 mg PO DAILY 09/07/18 [History Last Taken Unknown] metformin 500 mg tablet,extended release 24 hr 500 mg PO DAILY 09/07/18 [History Last Taken Unknown] pravastatin 20 mg tablet 20 mg PO DAILY 01/30/22 [History Last Taken Unknown] oxybutynin chloride 5 mg tablet 5 mg PO BID #30 tabs 05/20/22 [Rx Last Taken Unknown] Allergy/AdvReac Type Severity Reaction Status Date / Time Sulfa (Sulfonamide Allergy Fever and Verified 05/20/22 08:11 Antibiotics) skin rash Tetanus Vaccines and Toxoid Allergy Rash Verified 05/20/22 08:11 meperidine [From Demerol] AdvReac Vomiting Verified 05/20/22 08:11 Family History Father Heart disease Diabetes Mother Myocardial infarction Alzheimer disease Grandmother Cancer Sister Breast cancer Surgical History History of removal of testicle Hx of knee surgery Social History Smoking Status: Never smoker Tobacco: How many years used: 30 alcohol intake: current alcohol intake frequency: holidays/special occasions only substance use type: does not use diet: diabetic ROS ROS ED Constitutional Constitutional ED: Denies chills or fever(s) ENT ENT ED: Denies sore throat Cardiovascular Cardiovascular: Denies chest pain Respiratory/Chest Respiratory/Chest: Denies cough or dyspnea Gastrointestinal Gastrointestinal: Reports abdominal pain; Denies diarrhea, nausea or vomiting Genitourinary Genitourinary ED: Reports urinary frequency; Denies dysuria Musculoskeletal Musculoskeletal: Denies back pain or myalgias Integumentary Denies rash Neurologic Neurologic: Denies headache(s) Hematologic/Lymphatic Hematologic/Lymphatic: Denies easy bleeding or easy bruising EXAM Physical Exam Const Vital Signs: 05/24/22 01:37 Temperature 97.9 F Temperature Source Oral Pulse Rate 64 Respiratory Rate 18 Blood Pressure 151/77 H Blood Pressure Mean 101 Pulse Ox 100 Oxygen Delivery Method Room Air Positive well nourished and well developed General Appearance ED: well developed Eyes PERRL and EOMs intact bilaterally Neck supple Resp normal respiratory effort and clear to auscultation bilaterally Cardio regular rate and regular rhythm GI non-distended GI Narrative: Patient has organomegaly/bladder distention in the suprapubic/midline lower abdomen region. There is pain on palpation at the site but the remainder of the abdomen is soft and nontender with normoactive bowel sounds and no voluntary guarding rigidity or pulsatile mass. Auscultation: normoactive bowel sounds Palpation: soft Extremity normal to inspection Neuro oriented x3 and CN's II-XII intact bilaterally Sensorium / Orientation: alert Psych mental status grossly normal Skin no rashes or lesions noted MDM MDM MDM Narrative Medical decision making narrative: Patient presented to the ER afebrile with a history consistent with acute urinary retention most likely from a swollen prostate secondary to radiation. A Zavala catheter was placed because of this and drained approximately 700 mL of urine. The urine is clear in color and does not suggest infection and patient reports has been no dysuria with the urine has been able to produce. Therefore at this time as he has a known cause for retention and the prostate cancer with radiation therapy stable vitals and resolution of his symptoms with Zavala catheter placement I do not feel there is need for further work-up. Patient will be discharged with the Zavala catheter in place to prevent any return of function/retention and can follow-up with his urologist to discuss further treatment options Discharge Plan Triage Chief Complaint: Complaint ED Provider: Pancho Weeks Dx/Rx/DC Orders Clinical Impression: Acute urinary retention, Cancer of prostate with intermediate recurrence risk (stage T2b-c or [place] 7 or PSA 10-20), History of type 2 diabetes mellitus Instructions: ED Urinary Retention, Male Prescriptions: No Action pravastatin 20 mg tablet 20 mg PO DAILY oxybutynin chloride 5 mg tablet 5 mg PO BID Qty: 30 2RF Rx Instructions: take one tab PO bid metformin 500 MG tablet 500 mg PO DAILY finasteride 5 MG tablet 5 mg PO DAILY Tamsulosin Hcl 0.4 MG capsule 0.4 mg PO BID Primary Care Provider: Perfecto Warner Referrals: Perfecto Warner MD [Primary Care Provider] - KaelynParish garcia MD [Med Staff - Active Staff] - 3-5 Days Activity Restrictions/Additional Instructions: Please leave the catheter in place to prevent any further urinary retention issues. Please follow-up with urology as directed to discuss further treatment strategies for your prostate cancer and retention problems and return to the ER should you have any further concerns Disposition Disposition: Home, Self Care
== END 2022-05-24 02:46 | disposition home or self-care (01) ==
PROVIDERS: Emergency Provider Emergency Medicine; PCP Family Medicine; Visit Provider Emergency Medicine
DX: N40.1 Benign prostatic hyperplasia with lower urinary tract symptoms (principal); C61 Malignant neoplasm of prostate; E11.9 Type 2 diabetes mellitus without complications; R33.8 Other retention of urine; E78.00 Pure hypercholesterolemia, unspecified; Z79.84 Long term (current) use of oral hypoglycemic drugs; Z79.899 Other long term (current) drug therapy
CPT/HCPCS: 51702; 99283

== ENCOUNTER 2022-06-15 15:16 | Emergency (ER) | payer MEDICARE, OTHER, SELFPAY ==
[2022-06-15 15:17] VITALS: BP 135/76; PULSE 92; RESP 16; TEMP 35.8; O2SAT 96; BMI 25.4
== END 2022-06-15 15:44 | disposition left against medical advice (07) ==
LOC: ED 15:43
PROVIDERS: PCP Family Medicine
DX: R69 Illness, unspecified (principal); Z53.21 Procedure and treatment not carried out due to patient leaving prior to being seen by health care provider

== ENCOUNTER 2022-06-25 13:10 | Observation (INO) | payer MEDICARE, OTHER, SELFPAY ==
--- NOTE | 2022-06-16 08:05 | EKG12_ITS ---
Test Reason : PREOP Blood Pressure : / mmHG Vent. Rate : 072 BPM Atrial Rate : 072 BPM P-R Int : 178 ms QRS Dur : 078 ms QT Int : 390 ms P-R-T Axes : 029 052 046 degrees QTc Int : 427 ms Normal sinus rhythm Normal ECG Confirmed by PRITESH CHAVEZ, JOSE ([id number]), social media editor DANNY MAYO ([id number]) on 06/17/2022 10:58:12 AM Referred By: Parish Art Confirmed By:JOSE JONAS MD
[2022-06-16 08:30] LABS: Hematocrit 36.9 % (40-54); Hemoglobin 12.6 g/dL (13.0-16.5); Mean Corp Hgb Conc 34.1 g/dL (32-36); Mean Corpuscular Hgb 31.3 pg (27.0-32.0); Mean Corpuscular Volume 91.6 fL (80-94); Mean Platelet Vol. 8.2 fl (6.2-12.0); Platelet Count 170 K/mm3 (150-450); RBC Distribution Width SD 46.8 fl (35.1-43.9); Red Blood Count 4.03 M/mm3 (4.6-6.2); White Blood Count 4.5 K/mm3 (4.4-11.0)
[2022-06-16 08:50] LABS: Anion Gap 7 (5-15); BUN 13 mg/dL (7-18); BUN/Creat Ratio 12.5 RATIO (10-20); Calcium,Total 9.2 mg/dL (8.5-10.1); Chloride 105 mmol/L (98-107); Creatinine, Serum 1.04 mg/dL (0.70-1.30); EST Glomerular Filtration Rate 73 mL/min (>60); Est Glom Filt Rate - Afr Amer 88 mL/min (>60); Glucose 110 mg/dL (74-106); Potassium 3.9 mmol/L (3.5-5.1); Sodium Level 142 mmol/L (136-145)
[2022-06-16 09:06] LABS: Hemoglobin A1c 6.3 % (3.8-5.6)
[2022-06-25] VITALS (12 sets, daily range): BP systolic 126–142; BP diastolic 67–82; PULSE 58–74; RESP 14–18; TEMP 36–37; O2SAT 94–100; BMI 25.1
--- NOTE | 2022-06-25 | PROS_PTH ---
PATIENT: TANISHA SALTER LOC: [facility] U#:[id number] AGE/SX: 82/M ROOM: WI315 RE06/25/[address]: Dr. Parish Art MD : 1940 BED: 1 DIS: 06/26/2022 SPEC #: [id number] RECD: 06/26/22 07:08 STATUS: JEREMIE BARAHONA #: [id number] SALUD: 06/25/22 00:[address]: Parish Art DEPT: SURGICAL PATHOLOGY RECD BY: Elio Little ENTERED: 06/26/22 08:46 SP TYPE: TURP OTHR DR: Dr. Perfecto Warner MD Tissues: Prostate, NOS Procedures: Surgery Specimen Level IV HEADER OPERATION: Cysto, TUR prostate, [employer] PRE-OP DIAGNOSIS: BPH with obstruction and retention of urine TISSUE SUBMITTED: Prostate tissue MICROSCOPIC DIAGNOSIS Prostate, transurethral resection: Benign nodular hyperplasia, glandular and stromal types. Chronic inflammation. AM:luciana 06/27/2022 MICROSCOPIC DESCRIPTION Slides are reviewed. GROSS DESCRIPTION Received is one container labeled with the patient's name and designated prostate tissue. The specimen consists of multiple irregular fragments of pink-carney, rubbery, soft tissue that in aggregate weigh 12.3 gm and measure in aggregate 6 x 6 x 0.6 cm. Resource Teacher portions are submitted in ten cassettes. / AM:luciana 06/26/2022 TC:3 CPT: 76772
[2022-06-25] MEDS: Lactated Ringers 1,000 ML 15 ML IV (12:43)
[2022-06-25 13:05] LABS: Bedside Glucose 123 mg/dL (74-106)
--- NOTE | 2022-06-25 13:12 | PCM.HP.STD ---
HPI - General General Date of Service: 06/25/22 HPI Narrative TANISHA SALTER, is a 82 M who presents for transurethral resection of the prostate for BPH with obstruction and retention of urine also had prostate cancer recently treated with radiation therapy [facility] Medical History (Updated 06/11/22 @ 14:56 by Rosie Plascencia) Arthritis Back pain Cancer Constipation Diabetes High cholesterol Indwelling urethral catheter present Testicular cancer Wears dentures Home Medications Tamsulosin Hcl 0.4 mg PO BID 09/07/18 [History Last Taken 04/16/22] finasteride 5 mg tablet 5 mg PO DAILY 09/07/18 [History Last Taken Unknown] metformin 500 mg tablet,extended release 24 hr 500 mg PO DAILY 09/07/18 [History Last Taken Unknown] pravastatin 20 mg tablet 20 mg PO DAILY 01/30/22 [History Last Taken Unknown] leuprolide (3 month) 22.5 mg (3 month) subcutaneous syringe ([employer]) 22.5 mg subcut .Q3MO 06/11/22 [History Last Taken Unknown] ciprofloxacin HCl 500 mg tablet (Cipro) 500 mg PO BID #14 tabs 06/25/22 [Rx Last Taken Unknown] Allergy/AdvReac Type Severity Reaction Status Date / Time Sulfa (Sulfonamide Allergy Fever and Verified 06/25/22 12:37 Antibiotics) skin rash Tetanus Vaccines and Toxoid Allergy Rash Verified 06/25/22 12:37 meperidine [From Demerol] AdvReac Vomiting Verified 06/25/22 12:37 Family History Father Heart disease Diabetes Mother Myocardial infarction Alzheimer disease Grandmother Cancer Sister Breast cancer Surgical History (Updated 06/11/22 @ 14:56 by Rosie Plascencia) History of removal of testicle Hx of cystoscopy Hx of knee surgery Social History Smoking Status: Former smoker pack-years: 30 Tobacco: How many years used: 30 alcohol intake: current alcohol intake frequency: holidays/special occasions only substance use type: does not use diet: diabetic Vital Signs Vital Signs Vital Signs: 06/25/22 12:37 06/25/22 12:37 Temperature 98.4 F Temperature Source Temporal Pulse Rate 70 Respiratory Rate 16 Respiratory Pattern Normal Blood Pressure 128/73 H Blood Pressure Mean 91 Blood Pressure Source Monitor Blood Pressure Position Semi-Fowlers Blood Pressure Location Left Arm Pulse Ox 98 Oxygen Delivery Method Room Air Weight Weight: 84 kg Body Mass Index (BMI) 25.1 Results Lab / Micro Data Result Diagrams: 06/16/22 08:18 06/16/22 08:18 Labs: Laboratory Results - last 24 hr 06/25/22 12:33: POC Glucose 123 H
--- NOTE | 2022-06-25 13:13 | PCM.DC ---
Discharge Instructions Diet Discharge Diet: No restrictions, Light diet - advance as tolerated and Soft diet Activity Discharge Activity: Return to Normal Activity Dressing / Incision Call your doctor if your incision/area has: Sudden Increased Bleeding Cleanse incision/area with: Soap & Water Follow Up Care Please Follow Up With: Parish Art MD When: 2 weeks Test Results: Test results from this visit will be discussed in further detail at your follow-up appointment, if applicable. Discharge Plan Admission Primary Reason for Your Visit: RHONDA Attending Provider: Parish Art Primary Care Provider: Perfecto Warner Instructions Patient Instructions: [facility] Home Recovery Discharge Orders/Prescriptions Prescriptions: New ciprofloxacin HCl [Cipro] 500 mg tablet 500 mg PO BID Qty: 14 0RF Continued pravastatin 20 mg tablet 20 mg PO DAILY metformin 500 MG tablet 500 mg PO DAILY finasteride 5 MG tablet 5 mg PO DAILY Tamsulosin Hcl 0.4 MG capsule 0.4 mg PO BID Held Eligard (3 month) 22.5 mg Syringe 22.5 mg SUBCUT .Q3MO Hold Instructions: Resume on 07/09/22. Referrals / Follow Up: Perfecto Wraner MD [Primary Care Provider] - Parish Art MD [Med Staff - Active Staff] - Disposition Disposition (needs filled in before D/C Order can be placed): Home, Self Care
[2022-06-25] MEDS: Cefazolin 2 GM in 0.9% Normal Saline 100 ML IV (13:16)
--- NOTE | 2022-06-25 14:09 | OP.PCM_ITS ---
Report of Operation Date of Procedure: 06/25/22 Pre-Operative Diagnosis: BPH with obstruction retention of urine Post-Operative Diagnosis: Same Surgery/Procedure Performed:: Transurethral section of the prostate Description of Surgical Findings:: In the preoperative setting I discussed with the patient how the surgery would be done with expect afterwards. We discussed how a prostate resection is done and we discussed the risk of the surgery including, bleeding, infection, retrograde ejaculation, changes with ejaculation or intercourse,. We discussed the possibility that the resection of the prostate may not alleviate his urinary symptoms. We discussed the small risk of developing scar tissue along the urethral channel and strictures. We also discussed the chance of the prostate could grow back and he may need further surgery or treatment in the future for prostate problems. Patient was taken back to the operating room, timeout procedure was performed, he was identified and marked and placed on the operating room table. He underwent general anesthesia. He was placed in dorsolithotomy position. Penis and testicles were prepped and draped in usual sterile fashion. Went into the bladder using the visual obturator with a resectoscope. Once inside the bladder identified the right and left ureteral orifice. I then identified the prostate and the anatomy of the prostate. I marked out the area of the sphincter and the verumontanum was identified. I then proceeded with the prostate resection first resected the median lobe. And then resected the right lobe of the prostate. Then to resect the left lobe of the prostate. I then resected the apical tissue of the prostate. This was a complete resection of all obstructive tissue to improve voiding and relieve obstruction. I then made sure that there was no injury to the sphincter or the verumontanum was still intact. At the end of the resection all the chips were Ellik out of the bladder. I then identified the left and right ureteral orifice and these were confirmed to be in good position and effluxing and not injured. The resectoscope was removed, a 22 Turkmen catheter was placed into the bladder on continuous irrigation. And the urine was fairly light pink color and draining normally. He was taken back to the PACU in good condition. Surgeon: Parish Art Type of Anesthesia: General Drains: 22fr 3 way Admit VTE Documentation VTE Present on Admission: No VTE Mechan Device Prophylaxis: SCD's VTE Pharm Prophylaxis ordered?: No
[2022-06-25] MEDS: Ketorolac 15 MG/ML Vial IV (14:43)
[2022-06-25 14:56] LABS: Bedside Glucose 152 mg/dL (74-106)
[2022-06-25] MEDS: 0.9% Normal Saline 1,000 ML 125 ML IV ×2 (15:20→23:02)
[2022-06-25] MEDS: Ciprofloxacin 400 MG/200 ML BAG 200 MG IV (23:02)
[2022-06-25] MEDS: Docusate Sodium 100 MG Capsule 200 MG PO (23:02)
[2022-06-25] MEDS: Tamsulosin HCl 0.4 MG Capsule PO (23:03)
[2022-06-25] MEDS: Pravastatin 20 MG Tablet PO (23:03)
[2022-06-26] MEDS: 0.9% Saline Lock 10 ML Syringe IV (02:21)
[2022-06-26] MEDS: Ketorolac 15 MG/ML Vial IV (02:22)
[2022-06-26 04:03] VITALS: BP 119/63; PULSE 73; RESP 16; TEMP 37; O2SAT 96
[2022-06-26] MEDS: 0.9% Normal Saline 1,000 ML 125 ML IV (07:26)
[2022-06-26 07:29] VITALS: O2SAT 94
--- NOTE | 2022-06-26 07:45 | PCM.PN.GU ---
Subjective Subjective Status post TURP doing well urine is clear home today after is able to urinate the nurses will remove the Zavala catheter. Objective Data Objective Data Vital Signs: Vital Signs Temp Pulse Resp BP Pulse Ox O2 Del Method O2 Flow Rate 98.6 F 73 16 119/63 94 Room Air 2 06/26/22 04:03 06/26/22 04:03 06/26/22 04:03 06/26/22 04:03 06/26/22 07:29 06/26/22 07:29 06/25/22 20:10 Oxygen Flow Rate (L/min) 2 Oxygen Delivery Method Room Air Weight: 84 kg Body Mass Index (BMI) 25.1 Intake & Output: Intake and Output for Last 24 Hours 06/24/22 06/25/22 06/26/22 23:59 23:59 23:59 Intake Total 2192.5 / 2192.5 1200 / 1200 Output Total 450 / 450 Balance 1742.5 / 1742.5 1200 / 1200 Lab / Micro Data Result Diagrams: 06/16/22 08:18 06/16/22 08:18 Labs: Laboratory Results - last 24 hr 06/25/22 12:33: POC Glucose 123 H 06/25/22 14:34: POC Glucose 152 H
[2022-06-26 08:17] VITALS: BP 125/64; PULSE 79; RESP 16; TEMP 37.7; O2SAT 99
[2022-06-26] MEDS: metFORMIN (XR) 500 MG Tablet PO (08:31)
[2022-06-26] MEDS: Tamsulosin HCl 0.4 MG Capsule PO (09:57)
[2022-06-26] MEDS: Finasteride 5 MG Tablet PO (09:57)
[2022-06-26] MEDS: Ciprofloxacin 400 MG/200 ML BAG 200 MG IV (09:57)
[2022-06-26] MEDS: Ondansetron 4 MG/2 ML Vial IV (10:03)
[2022-06-26] MEDS: Docusate Sodium 100 MG Capsule 200 MG PO (11:23)
[2022-06-26] MEDS: HYDROcodone Bitartrate/Apap 5/325 Tablet PO (13:16)
[2022-06-26 13:35] VITALS: BP 112/61; PULSE 73; RESP 16; TEMP 36.8; O2SAT 95
== END 2022-06-26 14:05 | disposition home or self-care (01) ==
LOC: SDC 15:33 → MS3 15:33
PROVIDERS: Anesthesiology; Admitting Provider Urology; PCP Family Medicine; Referring Provider Urology; Visit Provider Urology
PROC: (CPT 52601; principal; 2022-06-25 14:00)
DX: N40.1 Benign prostatic hyperplasia with lower urinary tract symptoms (principal); E11.9 Type 2 diabetes mellitus without complications; R33.8 Other retention of urine; Z87.891 Personal history of nicotine dependence; E78.00 Pure hypercholesterolemia, unspecified; N13.8 Other obstructive and reflux uropathy; M19.90 Unspecified osteoarthritis, unspecified site; Z79.84 Long term (current) use of oral hypoglycemic drugs; Z79.899 Other long term (current) drug therapy
CPT/HCPCS: 52601; 00914; 36415; 51702; 80048; 82962; 83036; 85027; 88305; 93005; 96361; 96365; 96366; 96375; 99218; 99251; J7030; A4216; G0378; G0463; J0744; J2405

== ENCOUNTER 2022-07-03 21:57 | Emergency (ER) | payer MEDICARE, OTHER, SELFPAY ==
[2022-07-03 21:58] VITALS: BP 129/103; PULSE 95; RESP 18; TEMP 35.7; O2SAT 98; BMI 25.0
--- NOTE | 2022-07-03 22:01 | EX.ED.DYSGE1 ---
HPI History of Present Illness Chief Complaint: Complaint Narrative Narrative: 82-year-old male here with urinary retention. History of BPH, prostate cancer, type 2 diabetes, hyperlipidemia. The patient states he has not urinated for last 4 hours. States he is got lower abdominal TTP and fullness. Denies dysuria, hematuria, urgency. Denies any nausea vomiting. Denies any fevers. Denies any back pain. Patient denies any saddle anesthesia, urinary tension, bowel or bladder incontinence, lower extremity weakness, fever or IV drug use, no recent spinal manipulation or surgery, no recent urinary catheterization. Old chart reviewed: Seen on 05/24/2022 at this emergency department for similar symptoms. Zavala catheter placed at that visit. Last urology evaluation on 102 per note patient is status post TURP. Catheter was to be removed on 06/26/2022 [facility] Medical History Arthritis Back pain Cancer Constipation Diabetes High cholesterol Indwelling urethral catheter present Testicular cancer Wears dentures Home Medications Tamsulosin Hcl 0.4 mg PO BID 09/07/18 [History Last Taken 04/16/22] finasteride 5 mg tablet 5 mg PO DAILY 09/07/18 [History Last Taken Unknown] metformin 500 mg tablet,extended release 24 hr 500 mg PO DAILY 09/07/18 [History Last Taken Unknown] pravastatin 20 mg tablet 20 mg PO DAILY 01/30/22 [History Last Taken Unknown] leuprolide (3 month) 22.5 mg (3 month) subcutaneous syringe ([employer]) 22.5 mg subcut .Q3MO 06/11/22 [History Last Taken Unknown] ciprofloxacin HCl 500 mg tablet 500 mg PO BID #6 tabs 07/03/22 [Rx Last Taken Unknown] Allergy/AdvReac Type Severity Reaction Status Date / Time Sulfa (Sulfonamide Allergy Fever and Verified 07/03/22 22:00 Antibiotics) skin rash Tetanus Vaccines and Toxoid Allergy Rash Verified 07/03/22 22:00 meperidine [From Demerol] AdvReac Vomiting Verified 07/03/22 22:00 Family History Father Heart disease Diabetes Mother Myocardial infarction Alzheimer disease Grandmother Cancer Sister Breast cancer Surgical History History of removal of testicle Hx of cystoscopy Hx of knee surgery Social History Smoking Status: Former smoker pack-years: 30 Tobacco: How many years used: 30 alcohol intake: current alcohol intake frequency: holidays/special occasions only substance use type: does not use diet: diabetic ROS ROS ED ROS Narrative Constitutional: Denies fever HEENT: Denies sore throat Neck: Denies neck pain Cardiovascular: Denies chest pain, syncope Respiratory: Denies shortness of breath GI: Denies nausea vomiting or abdominal pain : Denies dysuria, hematuria, urinary retention Musculoskeletal: Denies muscle or joint pain Neurologic: Denies numbness weakness or loss of sensation Skin denies rash EXAM Physical Exam Narrative Exam Narrative: Nursing triage notes reviewed, Vital signs reviewed Constitutional: please see mdm HENT: MMM Eyes: Pupils equal round and reactive to light, Extraocular muscles intact Neck: No stridor, no JVD, full neck ROM Lungs: Clear to auscultation, No wheezing or rales. No increased work of breathing, no conversational dyspnea, no accessory muscle use, no nasal flaring. No respiratory distress noted Heart: Regular rate and rhythm, No murmurs, No rubs and No gallops, 2+ distal pulses (radial, femoral, posterior tibial) in all extremities Abdomen: Soft, suprapubic tenderness, suprapubic fullness, but no rigidity, rebound or guarding, no obvious peritoneal signs, no palpable pulsatile abdominal masses, no auscultated abdominal bruit : No CVAT, normal-appearing genitalia, no testicular tenderness, intact cremasteric reflex, no lesions, no blood at the urethral meatus. Extremities: No edema Neuro: No focal neurological deficits, cranial nerves II through XII intact, 5/5 strength in all extremities. Intact sensation to light touch in all extremities, 2+ reflexes bilateral patella dens. Normal gait. No ataxia. Skin: No rash or lesions noted Const Vital Signs: 07/03/22 21:58 Temperature 96.3 F L Temperature Source Temporal Pulse Rate 95 Respiratory Rate 18 Blood Pressure 129/103 H Blood Pressure Mean 111 Pulse Ox 98 Oxygen Delivery Method Room Air MDM MDM MDM Narrative Medical decision making narrative: 82-year-old male here with past medical history of BPH, prostate cancer complicated by urinary retention in setting of recent Zavala catheterization. Patient was hemodynamically stable, afebrile, nontoxic-appearing. Exam without neurologic abnormalities. Noted fullness in the suprapubic region. Zavala placed. Patient was given prophylactic antimicrobials. Given urology follow-up. Strict return precautions were also discussed with patient. Discharge Plan Triage Chief Complaint: Complaint ED Provider: Stone Hay Dx/Rx/DC Orders Clinical Impression: Urinary retention, History of benign prostatic hyperplasia, Hx of prostatic malignancy Instructions: ED Urinary Retention, Male Prescriptions: New ciprofloxacin HCl 500 mg tablet 500 mg PO BID Qty: 6 0RF No Action pravastatin 20 mg tablet 20 mg PO DAILY metformin 500 MG tablet 500 mg PO DAILY finasteride 5 MG tablet 5 mg PO DAILY Tamsulosin Hcl 0.4 MG capsule 0.4 mg PO BID Eligard (3 month) 22.5 mg Syringe 22.5 mg SUBCUT .Q3MO Hold Instructions: Resume on 07/09/22. Primary Care Provider: Perfecto Warner Referrals: Parish Art MD [Med Staff - Active Staff] - Activity Restrictions/Additional Instructions: Please follow-up with your urologist the next billable appointment for reevaluation and possible catheter removal Disposition Disposition: Home, Self Care
== END 2022-07-03 22:45 | disposition home or self-care (01) ==
LOC: ED 22:27
PROVIDERS: Emergency Provider Emergency Medicine; PCP Family Medicine; Visit Provider Emergency Medicine
DX: N40.1 Benign prostatic hyperplasia with lower urinary tract symptoms (principal); E11.9 Type 2 diabetes mellitus without complications; R33.8 Other retention of urine; E78.00 Pure hypercholesterolemia, unspecified; Z79.84 Long term (current) use of oral hypoglycemic drugs; Z79.899 Other long term (current) drug therapy; Z85.46 Personal history of malignant neoplasm of prostate; Z87.891 Personal history of nicotine dependence
CPT/HCPCS: 51702; 99283

== ENCOUNTER → 2022-09-18 | Outpatient (CLI) | payer MEDICARE, OTHER, SELFPAY ==
[2022-09-18 15:32] LABS: PSA,Total- Diagnostic < 0.01 ng/mL (0.0-4.0)
== END | disposition home or self-care (01) ==
LOC: LAB 13:51
PROVIDERS: PCP Family Medicine; Referring Provider Urology; Visit Provider Urology
DX: C61 Malignant neoplasm of prostate (principal)
CPT/HCPCS: 36415; 84153

== ENCOUNTER 2023-08-13 17:48 | Emergency (ER) | payer MEDICARE, OTHER, SELFPAY ==
[2023-08-13 17:49] VITALS: BP 124/70; PULSE 91; RESP 16; TEMP 36.3; O2SAT 97; BMI 26.3
--- NOTE | 2023-08-13 18:00 | EDS_ITS ---
HPI History of Present Illness Chief Complaint: Head Injury [facility] Medical History Arthritis Back pain Cancer Constipation Diabetes High cholesterol Indwelling urethral catheter present Testicular cancer Wears dentures Home Medications finasteride 5 mg tablet 5 mg PO DAILY 09/07/18 [History Last Taken Unknown] metformin 500 mg tablet,extended release 24 hr 500 mg PO DAILY 09/07/18 [History Last Taken Unknown] pravastatin 20 mg tablet 20 mg PO DAILY 01/30/22 [History Last Taken Unknown] Tamsulosin Hcl 0.4 mg PO DAILY 07/13/23 [History Last Taken Unknown] Allergy/AdvReac Type Severity Reaction Status Date / Time Sulfa (Sulfonamide Allergy Fever and Verified 08/13/23 17:49 Antibiotics) skin rash Tetanus Vaccines and Toxoid Allergy Rash Verified 08/13/23 17:49 meperidine [From Demerol] AdvReac Vomiting Verified 08/13/23 17:49 Family History Father Heart disease Diabetes Mother Myocardial infarction Alzheimer disease Grandmother Cancer Sister Breast cancer Surgical History History of removal of testicle Hx of cystoscopy Hx of knee surgery S/P TURP (status post transurethral resection of prostate) Social History Smoking Status: Former smoker pack-years: 30 Tobacco: How many years used: 30 alcohol intake: current alcohol intake frequency: holidays/special occasions only substance use type: does not use diet: diabetic EXAM Physical Exam Const Vital Signs: 08/13/23 17:49 08/13/23 18:10 Temperature 97.3 F L Temperature Source Temporal Pulse Rate 91 Respiratory Rate 16 Respiratory Effort Normal Respiratory Depth Normal Respiratory Pattern Normal Blood Pressure 124/70 H Blood Pressure Mean 88 Pulse Ox 97 Oxygen Delivery Method Room Air MDM MDM MDM Narrative Medical decision making narrative: HISTORY OF PRESENT ILLNESS: 83-year-old male here with mechanical fall and head trauma. REVIEW OF SYSTEMS: Pertinent positives: Headache Pertinent negatives: Focal weakness, vomiting PHYSICAL EXAM: Nursing triage notes reviewed, Vital signs reviewed Primary Survey Airway: Intact Breathing: Bilateral breath sounds Circulation: Palpable bilateral femorals, Palpable bilateral radial, Palpable bilateral DP and Palpable bilateral PT Disability / Spine precautions GCS Score: Eye Openin Verbal Response: 5 Motor Response: 6 Secondary Survey Constitutional: Please see MDM Head: Small abrasion to posterior occiput midface stable, NO jaw malocclusion, No Cephalohematoma, and No Lacerations noted Eye: Pupils equal round and reactive to light, Extraocular muscles intact and No periorbital ecchymosis or stepoff, no evidence of entrapment ENT: Oropharynx clear, no lacerations, no hemotympanum, no raccoon eyes or lozada sign Cervical spine / Neck: No cervical spine bony tenderness, crepitance, or stepoff deformity Trachea midline Lungs: Clear to auscultation, No asymmetric rise and No crepitus, no flail chest Cardiac: Regular rate and rhythm and No murmurs Abdomen: Soft, Nontender and No rebound Pelvis: Pelvis stable to compression : No evidence of genital injury Back: No midline bony tenderness to thoracic/lumbar/sacral spines Neuro: At baseline, intact strength and sensation in bilateral upper and lower extremities. 2+ patellar reflexes bilaterally. Extremities: NO gross Deformities Psych: Normal affect Nursing triage notes reviewed, Vital signs reviewed MEDICAL DECISION MAKING: Chief Complaint: Fall, head trauma External records reviewed: ED visit July 2023 for head injury Factors affecting care: Hyperlipidemia, type 2 diabetes prostate cancer Social determinants of health: Elderly History obtained from others: none Consults: none [facility] Narrative: The patient was hemodynamically stable, afebrile and nontoxic-appearing I considered the following differential diagnosis: ICH, cervical spine injury ALL IMAGES (IF OBTAINED) HAVE BEEN PERSONALLY REVIEWED AND INTERPRETED BY MYSELF. The scan of the head, neck showed no evidence of acute traumatic injury. Patient appropriate discharge home with concussion return precautions close wound care precautions. The patient and/or family, caregivers express understanding. The patient and/or family, caregivers agrees with the plan. Shared decision making: I will have a discussion with the patient and or visitors regarding risk/benefits of further testing or admission. They will be made aware of of the risk/benefits inherent in this decision they will be given the opportunity to voice understanding. Total critical care time today provided was at least 0 minutes. This excludes separately billable procedures. Critical care time (if documented) is secondary to the patient having high probability of clinically significant/life threatening deterioration in the patient's condition which required my urgent intervention. Impression: 1. Closed head injury 2. Concussion 3. Scalp abrasion Dispo: Discharge Radiography Diagnostic Testing: Clinical Impression(s) from Imaging Studies Brain CT 08/13/23 18:12 IMPRESSION: Atrophy and moderate periventricular white matter ischemic change. No acute intracranial hemorrhage Electronically Signed: Min Scott MD at 18:48 EST Reading Location ID and State: [facility] / [place] Tel , Service support , Cervical Spine CT 08/13/23 18:12 IMPRESSION: Moderate spondylosis most severe at C5-C6 and C6-7. No acute fracture or subluxation. Electronically Signed: Min Scott MD at 18:50 EST Reading Location ID and State: [facility] / [place] Tel , Service support , Discharge Plan Triage Chief Complaint: Head Injury ED Provider: Stone Hay Dx/Rx/DC Orders Instructions: ED Abrasion, ED Concussion Prescriptions: No Action pravastatin 20 mg tablet 20 mg PO DAILY metformin 500 MG tablet 500 mg PO DAILY finasteride 5 MG tablet 5 mg PO DAILY Tamsulosin Hcl 0.4 MG capsule 0.4 mg PO DAILY Primary Care Provider: Perfecto Warner Referrals: Perfecto Warner MD [Primary Care Provider] - Activity Restrictions/Additional Instructions: Thank you for trusting us with your care today! Please take Tylenol (2 pills, 650 mg), ibuprofen (2 pills, 400 mg) every 6 hours as needed for pain and fever control. Please return to the emergency department if your symptoms change or worsen. Please follow with your primary care physician for further outpatient evaluation and management. Disposition Disposition: Home, Self Care
--- NOTE | 2023-08-13 18:12 | CT_ITS ---
STUDY: CT BRAIN WITHOUT CONTRAST REASON FOR EXAM: Male, 83 years old. head trauma, [facility] RADIATION DOSAGE (If Supplied By Facility): CTDIvol = ( 44.99 ) mGy, DLP = ( 897.35 ) mGycm TECHNIQUE: Transaxial CT imaging of the brain was performed without administration of intravenous contrast material. Individualized dose optimization techniques were used for this CT. COMPARISON: No relevant priors. FINDINGS: Normal soft tissue structures. Normal calvarium. Calcific plaquing cavernous carotids. Mild atrophy and moderate periventricular white matter ischemic changes. Nonspecific calcification of the left basal ganglia. Normal right thalami. Normal brainstem. Normal cerebellum. There is no intracranial hemorrhage. There are no findings of an acute ischemic infarction. Normal visualized paranasal sinuses. Postsurgical changes of the orbits. CT/Brain/Head without Contrast IMPRESSION: Atrophy and moderate periventricular white matter ischemic change. No acute intracranial hemorrhage Electronically Signed: Min Scott MD at 18:48 EST ,
--- NOTE | 2023-08-13 18:12 | CT_ITS ---
STUDY: CT CERVICAL SPINE WITHOUT CONTRAST REASON FOR EXAM: Male, 83 years old. neck pain RADIATION DOSAGE (If Supplied By Facility): CTDIvol = ( 21.89 ) mGy, DLP = ( 537.19 ) mGycm TECHNIQUE: High resolution transaxial imaging was performed without contrast material. Sagittal and coronal images were reconstructed. Individualized dose optimization techniques were used for this CT. COMPARISON: None FINDINGS: Normal craniovertebral junction. Normal anterior atlantoaxial articulation. Normal odontoid process. Normal cervical lordosis. Normal vertebral bodies and posterior osseous elements. C2-3: Normal endplates. Normal disc height and morphology. Normal central canal and intervertebral neuroforamina. C3-4: Normal endplates. Normal disc height and morphology. Normal central canal and intervertebral neuroforamina. C4-5: Minor endplate spurring.. Normal disc height and morphology. Normal central canal and intervertebral neuroforamina. C5-6: Narrowed disc space and endplate spurring.. Normal central canal. Severe left neural foraminal stenosis secondary to bony hypertrophy C6-7: Narrowed disc space and endplate spurring.. Normal central canal. Severe left neuroforaminal stenosis secondary to bony hypertrophy C7-T1: Normal endplates. Normal disc height and morphology. Normal central canal and intervertebral neuroforamina. Normal visualized soft tissue structures. CT/Spine Cervical without Contras IMPRESSION: Moderate spondylosis most severe at C5-C6 and C6-7. No acute fracture or subluxation. Electronically Signed: Min Scott MD at 18:50 EST Reading Location ID and State: [facility] / [place] Tel , Service support ,
[2023-08-13 19:00] VITALS: BP 130/74; PULSE 80; RESP 16; O2SAT 98
== END 2023-08-13 19:28 | disposition home or self-care (01) ==
PROVIDERS: Emergency Provider Emergency Medicine; PCP Family Medicine; Visit Provider Emergency Medicine
DX: S06.0X0A Concussion without loss of consciousness, initial encounter (principal); E11.9 Type 2 diabetes mellitus without complications; S00.01XA Abrasion of scalp, initial encounter; W19.XXXA Unspecified fall, initial encounter; Z87.891 Personal history of nicotine dependence
CPT/HCPCS: 70450; 72125; 99282

== ENCOUNTER 2023-08-22 04:28 | Emergency (ER) | payer MEDICARE, OTHER, SELFPAY ==
[2023-08-22 04:31] VITALS: BP 144/92; PULSE 66; RESP 16; TEMP 36.6; O2SAT 96; BMI 25.0
[2023-08-22 04:58] VITALS: RESP 16
[2023-08-22 05:12] LABS: Bacteria 0 SEEN /hpf (None Seen); Mucous, Urine 0 SEEN /hpf (<or=2+); Squamous Epithelial Cells - UA 0 SEEN /hpf (0-5)
[2023-08-22 05:22] LABS: Color, Urine Yellow (Yellow); Glucose, Dipstick Normal (Normal); Ketone-Dipstick Negative (Negative); Leukocyte Esterase-Dipstick 500 /ul (Negative); Nitrite-Dipstick Negative (Negative); Occult Blood-Urine 50 /ul (Negative); Protein-Dipstick 30 mg/dl (Negative); Urine Bilirubin Dipstick Negative (Negative); Urine Clarity Clear (Clear); Urine Urobilinogen Normal (Normal); Urine pH 6.5 (5.0 - 8.0)
[2023-08-22 05:37] LABS: Red Blood Cells-Urine 0-5 SEEN /hpf (0-5); White Blood Cells 50-100 SEEN /hpf (0-5)
--- NOTE | 2023-08-22 05:43 | EX.ED.DYSGE1 ---
HPI History of Present Illness Chief Complaint: Complaint Informant: patient Onset/Context/Timing Onset: Weeks (1) Context: Gradual Onset Timing: Continuous Quality: Pressure Location: Suprapubic area Worsened by: Nothing Relieved by: Nothing Narrative Narrative: Patient presents with urinary retention that has been gradually getting worse over the past week. Patient states that when he urinates now he only dribble small amounts. Patient states he feels some pressure in his lower abdomen. Patient admits to some mild dysuria. Patient denies any fevers or chills. Patient denies any nausea or vomiting. Patient denies any back pain. Patient states nothing makes his symptoms better nothing makes it worse. Patient states he has been on Flomax in the past. Patient states he has been taking this with no improvement. Patient states he follows with Dr. Art for this. Prior similar symptoms: Yes PFSH PFSH Medical History Arthritis Back pain Cancer Constipation Diabetes High cholesterol Indwelling urethral catheter present Testicular cancer Wears dentures Home Medications finasteride 5 mg tablet 5 mg PO DAILY 09/07/18 [History Last Taken Unknown] metformin 500 mg tablet,extended release 24 hr 500 mg PO DAILY 09/07/18 [History Last Taken Unknown] pravastatin 20 mg tablet 20 mg PO DAILY 01/30/22 [History Last Taken Unknown] Tamsulosin Hcl 0.4 mg PO DAILY 07/13/23 [History Last Taken Unknown] cephalexin 500 mg capsule 500 mg PO Q6 #20 CAPSULES 08/22/23 [Rx Last Taken Unknown] Allergy/AdvReac Type Severity Reaction Status Date / Time Sulfa (Sulfonamide Allergy Fever and Verified 08/13/23 17:49 Antibiotics) skin rash Tetanus Vaccines and Toxoid Allergy Rash Verified 08/13/23 17:49 meperidine [From Demerol] AdvReac Vomiting Verified 08/13/23 17:49 Family History Father Heart disease Diabetes Mother Myocardial infarction Alzheimer disease Grandmother Cancer Sister Breast cancer Surgical History History of removal of testicle Hx of cystoscopy Hx of knee surgery S/P TURP (status post transurethral resection of prostate) Social History Smoking Status: Former smoker pack-years: 30 Tobacco: How many years used: 30 alcohol intake: current alcohol intake frequency: holidays/special occasions only substance use type: does not use diet: diabetic ROS ROS ED Constitutional Constitutional ED: Denies chills or fever(s) Eyes Eyes: Denies blurry vision or change in vision ENT ENT ED: Denies rhinorrhea or sore throat Cardiovascular Cardiovascular: Denies chest pain or palpitations Respiratory/Chest Respiratory/Chest: Denies cough or dyspnea Gastrointestinal Gastrointestinal: Denies nausea or vomiting Genitourinary Genitourinary ED: Reports dysuria; Denies hematuria Musculoskeletal Musculoskeletal: Denies back pain or neck pain Integumentary Denies abscess or rash Neurologic Neurologic: Denies headache(s) or weakness Allergic/Immunologic Allergic/Immunologic ED: Denies mouth swelling or urticaria EXAM Physical Exam Const Vital Signs: 08/22/23 04:31 08/22/23 04:58 08/22/23 08:20 Temperature 98 F Temperature Source Temporal Pulse Rate 66 77 Respiratory Rate 16 16 16 Blood Pressure 144/92 H 134/69 H Blood Pressure Mean 109 90 Pulse Ox 96 96 Positive well nourished and well developed General Appearance ED: well developed and NAD HEENT Reports moist mucous membranes Neck supple and no JVD Resp normal respiratory effort and clear to auscultation bilaterally Cardio regular rate and regular rhythm GI non-distended and hepatosplenomegaly Palpation: soft and tender suprapubic; Negative for guarding or rebound tenderness present Extremity normal to inspection General Extremety ED: Negative for edema or tenderness General Extremity: Negative for edema Neuro oriented x3, CN's II-XII intact bilaterally and no sensory deficits noted Sensorium / Orientation: alert Motor Exam: strength 5/5 throughout Psych mental status grossly normal MDM MDM MDM Narrative Medical decision making narrative: Differential diagnosis includes urinary retention and urinary tract infection. Urinalysis will be obtained to assess for urinary tract infection. Zavala catheter will be placed for urinary retention. Lab Data Attestation: I reviewed the patient's lab results. Lab results narrative: Urinalysis was reviewed. There is a leukocyte esterases of 500 with 50-100 white blood cells. There is no bacteria seen. Labs: Laboratory Results - last 24 hr 08/22/23 05:00 Urine Color Yellow Urine Clarity Clear Urine pH 6.5 Ur Specific Dequincy 1.010 Urine Protein 30 H Urine Glucose (UA) Normal Urine Ketones Negative Urine Occult Blood 50 H Urine Nitrite Negative Urine Bilirubin Negative Urine Urobilinogen Normal Ur Leukocyte Esterase 500 H Urine RBC 0-5 SEEN Urine WBC 50-100 SEEN Ur Squamous Epith Cells 0 SEEN Urine Bacteria 0 SEEN Urine Mucus 0 SEEN Treatment and Re-Evaluation :: Zavala catheter was placed. Patient felt better after this. Patient was advised of his findings. Patient was given a dose of Keflex here. Patient was given a prescription for Keflex. Patient was instructed to follow-up with his primary care physician in 3 to 5 days. Patient was also instructed to follow-up with his urologist in 3 to 5 days. Patient understood and was agreeable with the plan. All questions were answered. Discharge Plan Triage Chief Complaint: Complaint ED Provider: Dhruv Diez Dx/Rx/DC Orders Clinical Impression: Urinary tract infection, Acute urinary retention Instructions: ED Zavala Catheter, Care, ED Urinary Retention, Male, ED Bladder Infection, Male (Adult) Prescriptions: New cephalexin [cephalexin] 500 mg capsule 500 mg PO Q6 Qty: 20 0RF No Action pravastatin 20 mg tablet 20 mg PO DAILY metformin 500 MG tablet 500 mg PO DAILY finasteride 5 MG tablet 5 mg PO DAILY Tamsulosin Hcl 0.4 MG capsule 0.4 mg PO DAILY Primary Care Provider: Perfecto Warner Referrals: Perfecto Warner MD [Primary Care Provider] - 3-5 Days Parish Art MD [Med Staff - Active Staff] - 3-5 Days Disposition Disposition: Home, Self Care Discharge Date/Time: 08/22/23 08:21
[2023-08-22 08:20] VITALS: BP 134/69; PULSE 77; RESP 16; O2SAT 96
[2023-08-22] MEDS: Cephalexin 500 MG Capsule PO (08:20)
== END 2023-08-22 08:21 | disposition home or self-care (01) ==
PROVIDERS: Emergency Provider Emergency Medicine; PCP Family Medicine; Visit Provider Emergency Medicine
DX: N39.0 Urinary tract infection, site not specified (principal); E11.9 Type 2 diabetes mellitus without complications; E78.00 Pure hypercholesterolemia, unspecified; Z90.79 Acquired absence of other genital organ(s); Z79.84 Long term (current) use of oral hypoglycemic drugs; Z79.899 Other long term (current) drug therapy; Z85.47 Personal history of malignant neoplasm of testis; Z87.891 Personal history of nicotine dependence
CPT/HCPCS: 51702; 81001; 99283

== ENCOUNTER → 2023-10-09 | Outpatient (CLI) | payer MEDICARE, OTHER, SELFPAY ==
--- NOTE | 2023-10-09 | BLA_PTH ---
PATHOLOGY RESULTS PATIENT: TANISHA SALTER LOC: [facility] U#:[id number] AGE/SX: 83/M ROOM: RE10/09/[address]: Dr. Parish Art MD : [id number] BED: DIS: 10/09/2023 SPEC #: [id number] RECD: 10/12/23 07:29 STATUS: JEREMIE REAshley #: [id number] SALUD: 10/09/23 00:[address]: Parish Art DEPT: SURGICAL PATHOLOGY RECD BY: Ary Palmer ENTERED: 10/12/23 07:30 SP TYPE: BLADDER BX OTHR DR: Dr. Perfecto Warner MD [facility] Tissues: Urinary bladder, NOS Procedures: Surgery Specimen Level IV HEADER OPERATION: Transurethral resection of bladder neck, urinary catheter insertion PRE-OP DIAGNOSIS: BPH TISSUE SUBMITTED: Bladder neck tissue MICROSCOPIC DIAGNOSIS Bladder neck tissue, transurethral resection: Chronic inflammation. No evidence of malignancy. AM:luciana 10/13/2023 MICROSCOPIC DESCRIPTION Slides are reviewed. GROSS DESCRIPTION Received in fixative is one container labeled with the patient's name and designated bladder neck tissue. The specimen consists of multiple irregular fragments of carney, indurated tissue that in aggregate measure 2.0 x 2.5 x 0.3 cm. The specimen is totally submitted in one cassette. / SJ:luciana 10/12/2023 TC:3 CPT: 64120
--- OUTSIDE RECORDS SUMMARY | 2023-10-09 17:20 | XMS RPT_ITS | CCD ---
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 Role Phone Yolande Warner MD Primary Care Provider YOLANDE WARNER Primary Care Unavailab CRISTAL Silver Attending Unavailable BULL LAM Attending Unavailable YOLANDE WARNER Primary Care Unavailab YOLANDE Umana Primary Care Unavailab PADMA Culver Attending Unavailable YOLANDE WARNER Primary Care Unavailab le LAM, BULL Referring Unavailable BULL LAM Attending Unavailable NEEL, BULL Admitting Unavailable YOLANDE WARNER Primary Care Unavailab le LAM, BULL Attending Unavailable YOLANDE WARNER Primary Care Unavailab le LAM, BULL Admitting Unavailable BULL LAM Attending Unavailable NASH LAMMIT Admitting Unavailable YOLANDE WARNER Primary Care Unavailab le LAM, BULL Attending Unavailable YOLANDE WARNER Primary Care Unavailab YOLANDE Umana Referring Unavailab le LAM, BULL Attending Unavailable YOLANDE WARNER Primary Care Unavailab YOLANDE Umana Referring Unavailab YOLANDE Umana Primary Care Unavailab YOLANDE Umana Attending Unavailab YOLANDE Umana Primary Care Unavailab YOLANDE Umana Attending Unavailab LUCINDA Neri Referring Unavailable TESTLUCINDA BELL Attending Unavailable YOLANDE WARNER Primary Care Unavailab YOLANDE Umana Primary Care Unavailab chris TESTARABELLA, LUCINDA Attending Unavailable LUCINDA GALLO Referring Unavailable YOLANDE WARNER Primary Care Unavailab le LAM, BULL Referring Unavailable YOLANDE WARNER Primary Care Unavailab le TESTARABELLA, LUCINDA Attending Unavailable TESTLUCINDA BELL Referring Unavailable YOLANDE WARNER Primary Care Unavailab le YOLANDE WARNER Primary Care Unavailab le YOLANDE WARNER Referring Unavailab le YOLANDE WARNER Primary Care Unavailab le PODLOGAR, DEVAN Referring Unavailable LAM, BULL Referring Unavailable YOLANDE WARNER Primary Care Unavailab le TESTRAKE, LUCINDA Attending Unavailable TESTARABELLA, LUCINDA Referring Unavailable YOLANDE WARNER Primary Care Unavailab le LAM, BULL Referring Unavailable YOLANDE WARNER Primary Care Unavailab le LAM, BULL Referring Unavailable YOLANDE WARNER Primary Care Unavailab le YOLANDE WARNER Primary Care Unavailab le YOLANDE WARNER Referring Unavailab le TESTRALUCINDA TIAN Attending Unavailable TESTRAJAYLAN, LUCINDA Referring Unavailable YOLANDE WARNER Primary Care Unavailab le YOLANDE WARNER Attending Unavailab le YOLANDE WARNER [facility] Care Unavailab le YOLANDE WARNER Primary Care Unavailab le TESTRAKELUCINDA Attending Unavailable TESTARABELLA, LUCINDA Referring Unavailable YOLANDE WARNER Primary Care Unavailab le Allergies Allergy Classification Reported Allergen(s) Allergy Type Date of Onset Reaction(s) Facility (20 sources) Meperidine; Translations: [MEPERIDINE] Drug Allergy 8 Vomiting [facility] (20 sources) Sulfonamides (Antibiotic); Translations: [SULFA (SULFONAMIDE ANTIBIOTICS)] Drug Intolerance 8 Unknown [facility] (20 sources) Tetanus vaccine; Translations: [TETANUS TOXOID] Drug Intolerance 8 Hives [facility] (3 sources) Aspirin Drug Allergy 2 Other: See Comments [facility] Work Phone: Medications Current Medications Medication Drug Class(es) Dates Sig (Normalized) Sig (Original) cephalexin 500 mg oral capsule (1 source) Cephalosporin Antibacterial Start: 12-16-2022 End: 12-23-2022 take 1 capsule by mouth three times daily cephALEXin (KEFLEX) 500 mg capsule Indications: Cellulitis of left toe Take 1 capsule by mouth three times daily for 7 days. 21 capsule 0 12/16/2022 12/23/2022 Active Completed/Discontinued Medications Medication Drug Class(es) Dates Sig (Normalized) Sig (Original) diclofenac sodium 75 mg delayed release oral tablet (7 sources) Nonsteroidal Anti-inflammatory Drug Start: 01-22-2023 End: 04-22-2023 take 1 tablet by mouth every twelve hours at mealtime as needed for pain diclofenac, EC, (VOLTAREN) 75 mg EC tablet Indications: osteoarthritis TAKE 1 PILL BY MOUTH WITH FOOD UP TO EVERY 12 HOURS NEEDED FOR PAIN 60 tablet 2 01/22/2023 04/22/2023 Problems Active Problems Problem Classification Problem Date Documented Date Episodic/Chronic Aortic; peripheral; and visceral artery aneurysms (14 sources) Abdominal aortic aneurysm without rupture; Translations: [Abdominal aortic aneurysm (AAA) without rupture, unspecified part (HCC)] Onset: 03-24-2023 Chronic Cancer of prostate (20 sources) Malignant tumor of prostate; Translations: [Malignant neoplasm of prostate] Onset: 04-23-2022 Chronic Deficiency and other anemia (2 sources) Normocytic anemia; Translations: [Anemia, unspecified] 05-08-2023 Episodic Deficiency and other anemia (1 source) Anemia, unspecified; Translations: [Normocytic anemia] Onset: 07-30-2023 Episodic Diabetes mellitus with complications (20 sources) Polyneuropathy due to type 2 diabetes mellitus; Translations: [Type 2 diabetes mellitus with diabetic polyneuropathy] Onset: 08-17-2018 08-17-2018 Chronic Diabetes mellitus without complication (20 sources) Type 2 diabetes mellitus; Translations: [Type 2 diabetes mellitus without complications] Onset: 08-17-2018 08-17-2018 Chronic Disorders of lipid metabolism (20 sources) Hyperlipidemia; Translations: [Hyperlipidemia, unspecified] Onset: 08-17-2018 08-17-2018 Chronic Genitourinary symptoms and ill-defined conditions (1 source) Urinary catheter in situ; Translations: [Presence of urogenital implants] Chronic Hyperplasia of prostate (20 sources) Benign prostatic hyperplasia; Translations: [Benign prostatic hyperplasia without lower urinary tract symptoms] Onset: 08-17-2018 08-17-2018 Chronic Immunizations and screening for infectious disease (1 source) Patient encounter status; Translations: [Encounter for immunization] 05-08-2023 Episodic Inflammation; infection of eye (except that caused by tuberculosis or sexually transmitteddisease) (1 source) Hordeolum externum of lower eyelid of right eye; Translations: [Hordeolum externum right lower eyelid] 07-08-2023 Episodic Mycoses (6 sources) Onychomycosis; Translations: [Tinea unguium] Episodic Other circulatory disease (2 sources) Abnormal peripheral pulse; Translations: [Other specified symptoms and signs involving the circulatory and respiratory systems] Episodic Other connective tissue disease (6 sources) Pain of toe of left foot; Translations: [Pain in left toe(s)] Episodic Other connective tissue disease (6 sources) Pain of toe of right foot; Translations: [Pain in right toe(s)] Episodic Other connective tissue disease (1 source) Pain in finger of right hand; Translations: [Pain in right finger(s)] Episodic Other connective tissue disease (1 source) Triggering of digit; Translations: [Trigger finger, right little finger] Episodic Other diseases of bladder and urethra (1 source) Bladder outlet obstruction; Translations: [Bladder-neck obstruction] Chronic Other diseases of bladder and urethra (1 source) Overactive bladder; Translations: [Overactive bladder] 05-08-2023 Chronic Other diseases of bladder and urethra (1 source) Overactive bladder; Translations: [OAB (overactive bladder)] Onset: 05-08-2023 Chronic Other nervous system disorders (2 sources) Other chronic pain; Translations: [Chronic low back pain without sciatica, unspecified back pain laterality] Onset: 10-21-2021 Chronic Skin and subcutaneous tissue infections (1 source) Cellulitis of toe of left foot; Translations: [Cellulitis of left toe] Episodic Spondylosis; intervertebral disc disorders; other back problems (13 sources) Lumbar spondylosis; Translations: [Spondylosis without myelopathy or radiculopathy, lumbar region] Onset: 07-01-2023 04-23-2023 Chronic Unclassified (2 sources) Chronic low back pain without sciatica, unspecified back pain laterality; Translations: [Chronic low back pain without sciatica, unspecified back pain laterality] Onset: 10-21-2021 Unclassified (1 source) Abdominal aortic aneurysm (AAA) without rupture, unspecified part (HCC); Translations: [Abdominal aortic aneurysm (AAA) without rupture, unspecified part (HCC)] Onset: 03-13-2023 Past or Other Problems Problem Classification Problem Date Documented Date Episodic/Chronic Genitourinary symptoms and ill-defined conditions (6 sources) Bladder pain; Translations: [Other symptoms and signs involving the genitourinary system] Onset: 08-17-2018 Episodic Other screening for suspected conditions (not mental disorders or infectious disease) (17 sources) Raised prostate specific antigen; Translations: [Elevated prostate specific antigen [PSA]] Onset: 10-24-2022 Episodic Spondylosis; intervertebral disc disorders; other back problems (20 sources) Stiff neck; Translations: [Torticollis] Onset: 10-10-2019 10-10-2019 Episodic Results Test Name Value Interpretation Reference Range Facil ity Vital Signs Date Time Vital Sign Value Performing Clinician Faci lity 07-09-2023 07:59-0500 Heart rate 65 /min Bull Lam MD Work Phone: [facility] 07-09-2023 07:59-0500 Respiratory rate 14 /min Bull Lam MD Work Phone: [facility] 07-09-2023 07:59-0500 SaO2% (BldA) [Mass fraction] 97 % Bull Lam MD Work Phone: [facility] 07-08-2023 13:19-0500 Body temperature 97.9 [degF] Jesse Carver MD Work Phone: [facility] 07-08-2023 13:19-0500 Body weight 86.18 kg Jesse Carver MD Work Phone: [facility] 07-08-2023 13:19-0500 Diastolic blood pressure 62 mm[Hg] Jesse Carver MD Work Phone: [facility] 07-08-2023 13:19-0500 Heart rate 72 /min Jesse Carver MD Work Phone: [facility] 07-08-2023 13:19-0500 Respiratory rate 16 /min Jesse Carver MD Work Phone: [facility] 07-08-2023 13:19-0500 SaO2% (BldA) [Mass fraction] 98 % Jesse Carver MD Work Phone: [facility] 07-08-2023 13:19-0500 Systolic blood pressure 116 mm[Hg] Jesse Carver MD Work Phone: [facility] 05-08-2023 10:47-0400 Body weight 84.73 kg Yolande Warner MD Work Phone: [facility] 05-08-2023 10:47-0400 Diastolic blood pressure 72 mm[Hg] Yolande Warner MD Work Phone: [facility] 05-08-2023 10:47-0400 Heart rate 69 /min Yolande Warner MD Work Phone: [facility] 05-08-2023 10:47-0400 Respiratory rate 16 /min Yolande Warner MD Work Phone: [facility] 05-08-2023 10:47-0400 SaO2% (BldA) [Mass fraction] 95 % Yolande Warner MD Work Phone: [facility] 05-08-2023 10:47-0400 Systolic blood pressure 124 mm[Hg] Yolande Warner MD Work Phone: [facility] 04-23-2023 08:45-0400 Heart rate 76 /min Bull Lam MD Work Phone: [facility] 04-23-2023 08:45-0400 Respiratory rate 18 /min Bull Lam MD Work Phone: [facility] 04-23-2023 08:45-0400 SaO2% (BldA) [Mass fraction] 95 % Bull Lam MD Work Phone: [facility] 12-16-2022 12:28-0400 Body temperature 96.91 [degF] Monet Proctor APRN.SHOOK SPLICER Work Phone: [facility] 12-16-2022 12:28-0400 Body weight 90.72 kg Monet Proctor APRN.SHOOK SPLICER Work Phone: [facility] 12-16-2022 12:28-0400 Diastolic blood pressure 80 mm[Hg] Monet Praisler-Wood SOCIETY EDITOR.SHOOK SPLICER Work Phone: [facility] 12-16-2022 12:28-0400 Heart rate 78 /min Monet Praisler-Wood SOCIETY EDITOR.SHOOK SPLICER Work Phone: [facility] 12-16-2022 12:28-0400 Respiratory rate 16 /min Monet Praisler-Wood SOCIETY EDITOR.SHOOK SPLICER Work Phone: [facility] 12-16-2022 12:28-0400 SaO2% (BldA) [Mass fraction] 100 % Monet Praisler-Wood SOCIETY EDITOR.SHOOK SPLICER Work Phone: [facility] 12-16-2022 12:28-0400 Systolic blood pressure 128 mm[Hg] Monet Praisler-Wood SOCIETY EDITOR.SHOOK SPLICER Work Phone: [facility] 11-07-2022 07:53-0500 Body weight 87.27 kg Yolande Warner MD Work Phone: [facility] 11-07-2022 07:53-0500 Diastolic blood pressure 64 mm[Hg] Yolande Warner MD Work Phone: [facility] 11-07-2022 07:53-0500 Heart rate 69 /min Yolande Warner MD Work Phone: [facility] 11-07-2022 07:53-0500 Respiratory rate 16 /min Yolande Warner MD Work Phone: [facility] 11-07-2022 07:53-0500 SaO2% (BldA) [Mass fraction] 94 % Yolande Warner MD Work Phone: [facility] 11-07-2022 07:53-0500 Systolic blood pressure 106 mm[Hg] Yolande Warner MD Work Phone: [facility] 10-24-2022 08:26-0500 Body weight 85.82 kg Yolande Warner MD Work Phone: [facility] 10-24-2022 08:26-0500 Diastolic blood pressure 64 mm[Hg] Yolande Warner MD Work Phone: [facility] 10-24-2022 08:26-0500 Heart rate 69 /min Yolande Warner MD Work Phone: [facility] 10-24-2022 08:26-0500 Respiratory rate 16 /min Yolande Warner MD Work Phone: [facility] 10-24-2022 08:26-0500 SaO2% (BldA) [Mass fraction] 99 % Yolande Warner MD Work Phone: [facility] 10-24-2022 08:26-0500 Systolic blood pressure 122 mm[Hg] Yolande Warner MD Work Phone: [facility] 07-11-2022 13:59-0500 Body height 182.9 cm Benny Sánchez PA-C Work Phone: [facility] 07-11-2022 13:59-0500 Body temperature 96.91 [degF] Benny Sánchez PA-C Work Phone: [facility] 07-11-2022 13:59-0500 Body weight 83.92 kg Benny Sánchez PA-C Work Phone: [facility] 07-11-2022 13:59-0500 Diastolic blood pressure 72 mm[Hg] Benny Sánchez PA-C Work Phone: [facility] 07-11-2022 13:59-0500 Heart rate 96 /min Benny Sánchez PA-C Work Phone: [facility] 07-11-2022 13:59-0500 Respiratory rate 14 /min Benny Sánchez PA-C Work Phone: [facility] 07-11-2022 13:59-0500 SaO2% (BldA) [Mass fraction] 96 % Benny Sánchez PA-C Work Phone: [facility] 07-11-2022 13:59-0500 Systolic blood pressure 138 mm[Hg] Benny Ásnchez PA-C Work Phone: [facility] 07-10-2022 14:21-0500 Body weight 84.82 kg Yolande Warner MD Work Phone: [facility] 07-10-2022 14:21-0500 Diastolic blood pressure 68 mm[Hg] Yolande Warner MD Work Phone: [facility] 07-10-2022 14:21-0500 Heart rate 86 /min Yolande Warner MD Work Phone: [facility] 07-10-2022 14:21-0500 Respiratory rate 18 /min Yolande Warner MD Work Phone: [facility] 07-10-2022 14:21-0500 SaO2% (BldA) [Mass fraction] 97 % Yolande Warner MD Work Phone: [facility] 07-10-2022 14:21-0500 Systolic blood pressure 138 mm[Hg] Yolande Warner MD Work Phone: [facility] 04-23-2022 08:30-0400 Body weight 83.92 kg Yolande Warner MD Work Phone: [facility] 04-23-2022 08:30-0400 Diastolic blood pressure 78 mm[Hg] Yolande Warner MD Work Phone: [facility] 04-23-2022 08:30-0400 Heart rate 72 /min Yolande Warner MD Work Phone: [facility] 04-23-2022 08:30-0400 Respiratory rate 14 /min Yolande Warner MD Work Phone: [facility] 04-23-2022 08:30-0400 Systolic blood pressure 126 mm[Hg] Yolande Warner MD Work Phone: [facility] 03-26-2022 11:29-0400 Body temperature 96.91 [degF] Simon Alvarado APRN.SHOOK SPLICER Work Phone: [facility] 03-26-2022 11:29-0400 Body weight 86.64 kg Simon Christiano SOCIETY EDITOR.SHOOK SPLICER Work Phone: [facility] 03-26-2022 11:29-0400 Diastolic blood pressure 82 mm[Hg] Simon Alvarado SOCIETY EDITOR.SHOOK SPLICER Work Phone: [facility] 03-26-2022 11:29-0400 Heart rate 68 /min Simon Alvarado SOCIETY EDITOR.SHOOK SPLICER Work Phone: [facility] 03-26-2022 11:29-0400 Respiratory rate 16 /min Simon Alvarado SOCIETY EDITOR.SHOOK SPLICER Work Phone: [facility] 03-26-2022 11:29-0400 SaO2% (BldA) [Mass fraction] 97 % Simon Alvarado SOCIETY EDITOR.SHOOK SPLICER Work Phone: [facility] 03-26-2022 11:29-0400 Systolic blood pressure 140 mm[Hg] Simon Alvarado SOCIETY EDITOR.SHOOK SPLICER Work Phone: [facility] 12-24-2021 08:15-0400 Body height 182.9 cm Benny Sánchez PA-C Work Phone: [facility] 12-24-2021 08:15-0400 Body temperature 96.91 [degF] Benny Sánchez PA-C Work Phone: [facility] 12-24-2021 08:15-0400 Body weight 88.91 kg Benny Sánchez PA-C Work Phone: [facility] 12-24-2021 08:15-0400 Diastolic blood pressure 70 mm[Hg] Benny Sánchez PA-C Work Phone: [facility] 12-24-2021 08:15-0400 Heart rate 70 /min Benny Sánchez PA-C Work Phone: [facility] 12-24-2021 08:15-0400 Respiratory rate 14 /min Benny Sánchez PA-C Work Phone: [facility] 12-24-2021 08:15-0400 SaO2% (BldA) [Mass fraction] 96 % Benny Sánchez PA-C Work Phone: [facility] 12-24-2021 08:15-0400 Systolic blood pressure 118 mm[Hg] Benny Sánchez PA-C Work Phone: [facility] 11-27-2021 09:37-0400 Body temperature 96.4 [degF] Devan Podlogar SOCIETY EDITOR.SHOOK SPLICER Work Phone: [facility] 11-27-2021 09:37-0400 Body weight 89.09 kg Devan Podlogar SOCIETY EDITOR.SHOOK SPLICER Work Phone: [facility] 11-27-2021 09:37-0400 Diastolic blood pressure 74 mm[Hg] Devan Podlogar SOCIETY EDITOR.SHOOK SPLICER Work Phone: [facility] 11-27-2021 09:37-0400 Heart rate 75 /min Devan Podlogar SOCIETY EDITOR.SHOOK SPLICER Work Phone: [facility] 11-27-2021 09:37-0400 Respiratory rate 18 /min Devan Podlogar SOCIETY EDITOR.SHOOK SPLICER Work Phone: [facility] 11-27-2021 09:37-0400 SaO2% (BldA) [Mass fraction] 98 % Devan Podlogar SOCIETY EDITOR.SHOOK SPLICER Work Phone: [facility] 11-27-2021 09:37-0400 Systolic blood pressure 130 mm[Hg] Devan Podlogar SOCIETY EDITOR.SHOOK SPLICER Work Phone: [facility] Encounters Encounter Date Encounter Type Care Provider Facility Start: 09-17-2023 End: 09-17-[address] [facility] Facility:[facility] Start: 08-10-2023 Orders Only Bull Lam MD Work Phone: [facility] Procedures Date Procedure Procedure Detail Performing Clinician Start: 05-08-2023 INFLUENZA VACCINE, P RSV FREE, AGE 65+ YR, HIGH DOSE, QUADRIVALENT (FLUZONE HIGH-DOSE) Yolande Warner MD Work Phone: Start: 03-13-2023 Ct angio abd&plvis c ntrst mtrl w/wo cntrst img Bull Lam MD Work Phone: Start: 02-19-2023 Ct lumbar spine w/o contrast material Bull Lam MD Work Phone: Start: 07-10-2022 Culture bacterial quanttative colony count urine Yolande Warner MD Work Phone: Start: 07-10-2022 Urnls dip stick/tabl et rgnt auto w/o microscopy Yolande Warner MD Work Phone: Start: 03-26-2022 Radex fingr minimum 2 views Simon Alvarado SOCIETY EDITOR.SHOOK SPLICER Work Phone: Start: 12-24-2021 Urnls dip stick/tabl et rgnt auto w/o microscopy Benny Sánchez PA-C Work Phone: Plan of Treatment Date Care Activity Detail Author Start: 05-08-2024 Covid-19 Vaccine () Covid-19 Vaccine () [facility] Immunizations Immunization Date Immunization Notes Care Provider Fa cility 05-08-2023 influenza (HD-IIV4) vaccine, age 65+ yr, high dose, quadrivalent, PF (FLUZONE HIGH-DOSE) Yolande Warner MD Work Phone: [facility] 07-18-2022 COVID-19 booster vaccine, age 12+ yr, bivalent (PFIZER-BIONTECH) Yolande Warner MD Work Phone: [facility] 07-04-2022 influenza, high-dose , quadrivalent vaccine (FLUZONE HIGH DOSE QUADRIVALENT) Benny Sánchez PA-C Work Phone: [facility] 05-17-2021 influenza, high dose seasonal, preservative-free Devan Mayfieldlogchucky SOCIETY EDITOR.SHOOK SPLICER Work Phone: [facility] 10-10-2020 COVID-19 vaccine, ag e 12+ yr (PFIZER-BIONTECH - PURPLE TOP) Devan Mayfieldlogchucky SOCIETY EDITOR.SHOOK SPLICER Work Phone: [facility] 09-11-2020 COVID-19 vaccine, ag e 12+ yr (PFIZER-BIONTECH - PURPLE TOP) Devan Podlogar SOCIETY EDITOR.SHOOK SPLICER Work Phone: [facility] 06-18-2020 influenza, high dose seasonal, preservative-free Devan Podlogar SOCIETY EDITOR.SHOOK SPLICER Work Phone: [facility] 03-26-2020 zoster vaccine recombinant Devan Podlogar SOCIETY EDITOR.SHOOK SPLICER Work Phone: [facility] 12-26-2019 zoster vaccine recombinant Devan Podlogar SOCIETY EDITOR.SHOOK SPLICER Work Phone: [facility] 10-07-2019 pneumococcal polysaccharide vaccine, 23 valent Devan Podlogar SOCIETY EDITOR.SHOOK SPLICER Work Phone: [facility] 05-30-2019 influenza, high dose seasonal, preservative-free Devan Podlogar SOCIETY EDITOR.SHOOK SPLICER Work Phone: [facility] 08-17-2018 pneumococcal conjuga te vaccine, 13 valent Devan Podlogar SOCIETY EDITOR.SHOOK SPLICER Work Phone: [facility] 06-15-2018 influenza, high dose seasonal, preservative-free Devan Podlogar SOCIETY EDITOR.SHOOK SPLICER Work Phone: [facility] 06-18-2009 zoster vaccine, live Devan P odlogar SOCIETY EDITOR.SHOOK SPLICER Work Phone: [facility] Payers Date Payer Category Payer Medicare MEDICARE MEDICAR E A AND B [id number] 2017-Present [phone] [place] [address] Medicare [id number] 2017 Medicare MEDICARE MEDICAR E A AND B [id number] 2017-Present [phone] [place] [address] Medicare [id number] 2017 Medicare [id number] 2017 Private Health Insurance [facility] AARP SUPPLEMENT [id number] 2017-Present [phone] [address] [place] [address] Indemnity [id number] 2017 Private Health Insurance [facility] AARP SUPPLEMENT [id number] 2017-Present [phone] [address] [place] [id number] Indemnity [id number] 2017 Unknown [id number] Social History Date Type Detail Facility Start: 07-23-2018 End: 07-10-2022 Tobacco smoking status NHIS Ex-smoker [facility] Work Phone: End: 07-23-1990 History of tobacco use Current smoker [facility] Work Phone: End: 07-23-1990 History of tobacco use Cigarette Smoker [facility] Work Phone: Start: 07-23-2018 End: 01-22-2023 Cigarettes smoked current (pack per day) - Reported 1.5 [facility] Start: 07-23-2018 End: 07-10-2022 Tobacco use and exposure Smokeless tobacco non-user [facility] Work Phone: Start: 11-27-2021 End: 08-07-2023 Alcohol intake Current drinker of alcohol (finding) [facility] Start: 08-17-2018 History SDOH Alcohol Comment rarely [facility] Start: 1940 Sex Assigned At Not on file [facility] Start: 11-12-2021 End: 07-11-2022 Exposure to SARS-CoV-2 (event) Not sure [facility] Start: 01-22-2023 End: 04-01-2023 Tobacco use panel [facility] Adult Depression Screening Assessment 0 [facility] Clinical Notes 08-17-2018 to 09-17-2023 Telephone Encounter - Jessy Garcia - 08/07/2023 7:39 AM ESTTelephone Encounter - Mikaela Mchugh Ma - 07/31/2023 9:15 AM ESTTelephone Encounter - Mikaela Mchugh Ma - 07/31/2023 9:10 AM EST Note Date & Type Note Facility 09-17-2023 Note HNO ID: [id number] Author: LUCINDA GALLO, ? Service: ? Author Type: Physician Type: Progress Notes Filed: 09/17/2023 12:24 Note Text: Last jose saw pcp: 07/13/23 Subjective: Patient presents to clinic c/o painful toenails. They state that the nails are especially painful with shoe gear and pressure. Patient states that nails left 3rd are painful. Patient admits to being diabetic. No other pedal complaints at this time. Patient states no change in medications or medical history since last visit. Objective: Patient presents to clinic ambulating in quinten Vasc: DP and PT pulses are faintly palpable bilateral. CFT is less than 5 seconds bilateral. Skin temperature is warm to cool proximal to distal bilateral. There is mild edema or varicosities noted. Neuro: Protective sensation is decreased to the foot and toes when tested with the 5.07 SWM bilateral. Vibratory sensation is absent at the hallux IPJ bilateral. The hallux is downgoing bilateral. Derm: Nails 1-5 b/l are painful, discolored-yellow, thick, crumbly, dystrophic and with subungal debris. Skin is of normal turgor, texture and hair growth is absent bilateral. There are no hyperkeratosis, ulcerations, scars, verruca or other lesions noted. Ortho: Muscle strength is 5/5 for all pedal groups tested. Ankle joint DF is decreased with the knee extended with no pain or crepitus noted. 1st MPJ ROM is decreased bilateral. Assessment: (B35.1) Onychomycosis (primary encounter diagnosis) (M79.675) Pain in toe of left foot (M79.674) Pain in toe of right foot (E11.42) Diabetic polyneuropathy associated with type 2 diabetes mellitus (HCC) Plan: Patient was seen and evaluated. Nails 1-5 bilateral were debrided in length and thickness. Small bleed to left 3rd toe. Band aide applied. Discussed removal of toenail. Patient is not interested. Patient was instructed on the continued importance of diabetic foot care along with proper diet and keeping their blood sugar under control to prevent complications. Patient is to RTC in 3-4 months. Lucinda Gallo DPM [facility] 09-17-2023 Note HNO ID: [id number] Author: DANNY FORRESTER, RN Service: ? Author Type: Registered Nurse Type: Progress Notes Filed: 09/17/2023 12:24 Note Text: Patient presents with: Left Foot - Established Patient, Follow Up, Diabetic Foot Care Right Foot - Established Patient, Follow Up, Diabetic Foot Care Patient presents for diabetic nail care and diabetic foot exam. RAFAEL 07/16/23 [facility] 08-07-2023 Note HNO ID: [id number] Author: Cristal Caballero APRN.CARISSA Service: ? Author Type: Nurse Practitioner Type: Progress Notes Filed: 08/07/2023 7:56 AM Note Text: [facility] Today's Date: 08/07/2023 Name: Tanisha Salter : 1940 Purpose: Post-Procedure Evaluation Chief complaint: low back pain Pertinent Past Medical History: Diabetic polyneuropathy, DM type 2, HLD, Prostate CA, Chronic LBP Pertinent Past Surgeries:none Pertinent Social History: Plan at last visit: Plan: Tanisha Salter would benefit from the following to reach personal goals for decreasing pain, improving function and work participation, and/or improving quality of life: -Interventional Procedure: Medial branch blocks bilateral L4-5,5-S1 x 2, RFA if positive x2 (second MB scheduled for 08/05 - He will need the 2nd set of blocks with more consistent activity during this critical window to confirm. We discussed today.) The risks, benefits, alternative treatment options and prognosis of the procedure were discussed and all of the patient's questions/concerns were addressed to the patient?s satisfaction. Patient was advised that they will need a peg driver for after the procedure and that if no peg driver is available and on site at the time of the procedure, the procedure will be cancelled. For any anticoagulants, the patient was advised on whether to continue or hold for this procedure. The patient expressed understanding and gave verbal consent to proceed. Medication(s): Diclofenac PRN basis - hold for now Additional Studies: none Referrals: No additional considerations at present Functional Zoroastrianism: No changes-continue current regimen Depending on response to the above plan, consider: Gabapentin, consider Epidural at different level (eg L4-5 vs L1-2). SCS not ideal given minimal limb pain. -Follow-up: after MBB #2 (Scheduled on 08/07/2023) Interval History: Overall pain and functional disability since last visit: Unchanged New Complaints since last visit: No Pain Description: Timing: constant Character: aching or stabbing Primary Location: axial low back Radiation: mild upper occasionall upper posterior thighs Exacerbating factors: Walking, bending over a sink for more than a minute, squatting Relieving factors: sitting and lying down Interferes with: physical activity and walking The patient denies difficulty with bowel or bladder control, unintentional weight loss, and fevers, chills, or night sweats. Patient is here reporting he did not receive any relief from the medial branch nerve block that was done August 07, 2023. Patient states that he felt exactly the same afterwards states he had to sit for half an hour driving home and after he got home and he got out of the car to walk the pain was there just as it always has been. Patient is here to see what the neck step in care is. Current Pain Medications: Neuropathics: none NSAIDS:diclofenacPatient had stopped taking the diclofenac, will attempt to retake does not need a prescription. Muscle Relaxants: Topicals: Other Prescription or OTC Pain Medications: Opioids (when applicable): Date last refilled: Quantity supplied: Quantity remaining: Last taken: Tolerating Medication: Yes Medications helping improve ADL's and Self-care: Yes Current Therapies Attended: No Current Therapies Notable Events During Course of Treatment: 01/13/2023 - Initial HPI: Referred by Yolande Warner MD, for evaluation AND management of low back pain Duration: 1 year Sudden onset? no, Trauma? No Some intermittent low back pain over the years, but nothing serious Prior Treatments: Medications (See below), Modalities (eg. Heat, Ice), Chiropractic Full Treatment , Home Exercise Program , and Activity Modification Saw a Chiropractor about 10 years ago Saw PT -10/2021, 6 visits Reports he was told he has peripheral neuropathy Data Reviewed: PAIN PROCEDURES: DATE PROCEDURE IMPROVEMENT 07/01/2023 MBB L4-5, L5-S1 100% x 3 hours (see below) 04/01/2023 ILESI L3-4 No relief MEDICATIONS Taken TO DATE (for the chief complaint(s)): Membrane Stabilizers: none NSAIDS: Naprosyn (Naproxen) and Mobic (Meloxicam) Opioids: Tramadol Muscle Relaxants: none Topicals: none Other Prescription or OTC Pain Medications: none Anti-depressants: none Non-Pain Meds of Note: none Allergies: ALLERGIES Allergen Reactions Demerol [Meperidine] Vomiting Sulfa (Sulfonamide * Unknown Elevated temperature Tetanus Toxoid Hives INTAKE PAIN ASSESSMENT 08/05/2023 08/07/2023 Are you (more content not included)... [facility] 08-07-2023 Note HNO ID: [id number] Author: Ginny Bauer LPN Service: ? Author Type: LICENSED NURSE Type: Progress Notes Filed: 08/07/2023 7:56 AM Note Text: Review of Systems Constitutional: Negative for activity change, chills, fever and unexpected weight change. Gastrointestinal: Negative for bowel retention or incontinence Genitourinary: Positive for difficulty urinating. Negative for bladder retention or incontinence Musculoskeletal: Positive for arthralgias, back pain, gait problem, myalgias, neck pain and neck stiffness. Negative for joint swelling. Neurological: Negative for weakness, numbness and headaches. Psychiatric/Behavioral: Negative for dysphoric mood, sleep disturbance and suicidal ideas. The patient is not nervous/anxious. [facility] 08-07-2023 Miscellaneous Notes Procedure(s) being scheduled: 1.Are you diabetic Yes. Please list the current medications being prescribed Metformin. 2. Are you on any blood thinners? No If yes, does it require a hold? No If yes, was approval letter sent? No 3. Are you taking any aspirin? No 4. Are you currently taking any antibiotics? No If yes, is it prophylactic or for treatment of an infection? NA 5. Do you have any allergies to latex? No 6. Do you have any allergies to seafood or shellfish? No 7. Do you have any allergies to x-ray dye? No 8. Did the physician instruct you to take any medication prior to your procedure? No 9. Does this procedure require a peg driver? Yes If yes, has patient been notified that a peg driver is needed and must be present at check in? Yes 10. Were the pre-procedure instructions explained and provided to the patient? Yes 11. Do you have a pacemaker? No 12. Do you have an internal stimulator of any kind? No If yes, please bring the remote with you to your procedure visit. 13. Have you received the COVID-19 Vaccine? Yes. If yes, date(s) received: 07/2022 (Patient should not receive a procedure including steroids 14 days prior to their first dose of the COVID vaccine. They should not receive any procedure containing steroids in the time frame between their 1st and 2nd doses of the COVID vaccine. They should not receive a procedure containing steroids 14 days after their 2nd dose of the COVID vaccine.) Jessy Garcia documented in this encounter [facility] 07-31-2023 Miscellaneous Notes Call to pt and notified him of results and recommendation below, verbalized understanding. Mikaela Mchugh Ma ----- Message from Yolande Warner MD sent at 07/30/2023 3:17 PM EST ----- Improving anemia. No changes to regimen. Will recheck at future OV. documented in this encounter [facility] 07-16-2023 Note HNO ID: [id number] Author: Lucinda Gallo Service: ? Author Type: Physician Type: Progress Notes Filed: 07/16/2023 12:26 PM Note Text: Last saw pcp: 05/08/23 Subjective: Patient presents to clinic c/o painful toenails. They state that the nails are especially painful with shoe gear and pressure. Patient states that nails 1-5 b/l are painful. Patient admits to being diabetic. No other pedal complaints at this time. Patient states no change in medications or medical history since last visit. Objective: Patient presents to clinic ambulating in [facility] Vasc: DP and PT pulses are palpable bilateral. CFT is less than 5 seconds bilateral. Skin temperature is warm to cool proximal to distal bilateral. There is no edema or varicosities noted. Neuro: Protective sensation is intact to the foot and toes when tested with the 5.07 SWM bilateral. Vibratory sensation is decreased at the hallux IPJ bilateral. The hallux is downgoing bilateral. Derm: Nails 1-5 b/l are painful, discolored-yellow, thick, crumbly, dystrophic and with subungal debris. Skin is of normal turgor, texture and hair growth is present bilateral. There are no hyperkeratosis, ulcerations, scars, verruca or other lesions noted. Ortho: Muscle strength is 5/5 for all pedal groups tested. Ankle joint DF is decreased with the knee extended with no pain or crepitus noted. 1st MPJ ROM is decreased bilateral. Assessment: (B35.1) Onychomycosis (primary encounter diagnosis) (M79.675) Pain in toe of left foot (M79.674) Pain in toe of right foot (E11.42) Diabetic polyneuropathy associated with type 2 diabetes mellitus (HCC) Plan: Patient was seen and evaluated. Nails 1-5 bilateral were debrided in length and thickness. Small bleed to righthallux. Band aide applied. Patient was instructed on the continued importance of diabetic foot care along with proper diet and keeping their blood sugar under control to prevent complications. Patient is to RTC in 3-4 months. Lucinda Gallo DPM [facility] 07-16-2023 Note HNO ID: [id number] Author: Evelina Carr LPN Service: ? Author Type: LICENSED NURSE Type: Progress Notes Filed: 07/16/2023 12:26 PM Note Text: AMB ROOMING INTAKE FLOWSHEET DATA Patient presents with: Left Foot - Established Patient, Diabetic Foot Care Right Foot - Established Patient, Diabetic Foot Care Evelina Carr LPN [facility] 07-16-2023 History of Presen t illness Narrative Last saw pcp: 05/08/23 Subjective: Patient presents to clinic c/o painful toenails. They state that the nails are especially painful with shoe gear and pressure. Patient states that nails 1-5 b/l are painful. Patient admits to being diabetic. No other pedal complaints at this time. Patient states no change in medications or medical history since last visit. Objective: Patient presents to clinic ambulating in sneakers Vasc: DP and PT pulses are palpable bilateral. CFT is less than 5 seconds bilateral. Skin temperature is warm to cool proximal to distal bilateral. There is no edema or varicosities noted. Neuro: Protective sensation is intact to the foot and toes when tested with the 5.07 SWM bilateral. Vibratory sensation is decreased at the hallux IPJ bilateral. The hallux is downgoing bilateral. Derm: Nails 1-5 b/l are painful, discolored-yellow, thick, crumbly, dystrophic and with subungal debris. Skin is of normal turgor, texture and hair growth is present bilateral. There are no hyperkeratosis, ulcerations, scars, verruca or other lesions noted. Ortho: Muscle strength is 5/5 for all pedal groups tested. Ankle joint DF is decreased with the knee extended with no pain or crepitus noted. 1st MPJ ROM is decreased bilateral. Assessment: (B35.1) Onychomycosis (primary encounter diagnosis) (M79.675) Pain in toe of left foot (M79.674) Pain in toe of right foot (E11.42) Diabetic polyneuropathy associated with type 2 diabetes mellitus (HCC) Plan: Patient was seen and evaluated. Nails 1-5 bilateral were debrided in length and thickness. Small bleed to righthallux. Band aide applied. Patient was instructed on the continued importance of diabetic foot care along with proper diet and keeping their blood sugar under control to prevent complications. Patient is to RTC in 3-4 months. Lucinda Gallo DPM AMB ROOMING INTAKE FLOWSHEET DATA Patient presents with: Left Foot - Established Patient, Diabetic Foot Care Right Foot - Established Patient, Diabetic Foot Care Evelina Carr LPN documented in this encounter [facility] 07-16-2023 Instructions Lucinda Gallo - 07/16/2023 8:09 AM EST Diabetes Foot Care Instructions When you have diabetes, proper foot care is very important. Poor foot care may lead to amputation of a foot or leg. As a person with diabetes, you are more vulnerable to foot problems, because diabetes can damage your nerves and reduce blood flow to your feet. Here are some diabetes foot care tips to follow: Wash and Dry Your Feet Daily Use mild soaps Use warm water Pat your skin dry; do not rub. Thoroughly dry your feet. After washing, use lotion on your feet to prevent cracking. Do not put lotion between your toes. Examine Your Feet Each Day Check the tops and bottoms of your feet. Have someone else look at your feet if you cannot see them. Check for dry, cracked skin. Look for blisters, cuts, scratches, or other sores. Check for redness, increased warmth, or tenderness when touching any area of your feet. Check for ingrown toenails, corns, and calluses. If you get a blister or sore from your shoes, do not pop it. Apply a bandage and wear a different pair of shoes. Take Care of Your Toenails Cut toenails after bathing, when they are soft. Cut toenails straight across and smooth with a nail file. Avoid cutting into the corners of toes. Do not cut cuticles. If you have neuropathy (or decreased sensation in your feet) a front office coordinator should always cut your toenails. Be Careful When Exercising Walk and exercise in comfortable shoes. Do not exercise when you have open sores on your feet. Protect Your Feet With Shoes and Socks Never go barefoot. Always protect your feet by wearing shoes or hard-soled slippers or footwear. Avoid shoes with high heels and pointed toes. Avoid shoes that expose your toes or heels (such as open-toed shoes or sandals). These types of shoes increase your risk for injury and potential infections. Try on new footwear with the type of socks you usually wear. Do not wear new shoes for more than an hour at a time. Change your socks daily. Look and feel inside your shoes before putting them on to make sure there are no foreign objects or rough areas. Avoid tight socks. Wear natural-fiber socks (cotton, wool, or a cotton-wool blend). Wear special shoes if your health care provider recommends them. Wear shoes/boots that will protect your feet from various weather conditions (cold, moisture, etc.). Make sure your shoes fit properly. If you have neuropathy (nerve damage), you may not notice that your shoes are too tight. Perform the footwear test described below. Footwear Test Use this simple test to see if your shoes fit correctly: Stand on a piece of paper. (Make sure you are standing and not sitting, because your foot changes shape when you stand.) Trace the outline of your foot. Trace the outline of your shoe. Compare the tracings: Is the shoe too narrow? Is your foot crammed into the shoe? The shoe should be at least 1/2 inch longer than your longest toe and as wide as your foot. Proper Shoe Choices The following types of shoes are best for people with diabetes Closed toes and heels Leather uppers without a seam inside At least 1/2 inch extra space at the end of your longest toe Inside of shoe should be soft with no rough areas Outer sole should be made of stiff material Shoes should be at least as wide as your feet Tips for Foot Care in Diabetes Don't wait to treat a minor foot problem if you have diabetes. Follow your health care provider's guidelines and first aid guidelines. Report foot injuries and infections to your health care provider immediately. Check water temperature with your elbow, not your foot. Do not use a heating pad on your feet. Do not cross your legs. Do not self-treat your corns, calluses, or other foot problems. Go to your health care provider or front office coordinator to treat these conditions. documented in this encounter [facility] 07-09-2023 Note HNO ID: [id number] Author: Lindsay Carr MA Service: ? Author Type: Sediment Remediation Consultant Type: Progress Notes Filed: 07/09/2023 8:22 AM Note Text: Review of Systems Constitutional: Positive for activity change. Negative for chills and fever. Genitourinary: Positive for difficulty urinating. Musculoskeletal: Positive for arthralgias, back pain and gait problem. Negative for joint swelling, myalgias, neck pain and neck stiffness. Neurological: Negative for weakness, numbness and headaches. Psychiatric/Behavioral: Negative for dysphoric mood, sleep disturbance and suicidal ideas. The patient is not nervous/anxious. [facility] 07-09-2023 History of Presen t illness Narrative Review of Systems Constitutional: Positive for activity change. Negative for chills and fever. Genitourinary: Positive for difficulty urinating. Musculoskeletal: Positive for arthralgias, back pain and gait problem. Negative for joint swelling, myalgias, neck pain and neck stiffness. Neurological: Negative for weakness, numbness and headaches. Psychiatric/Behavioral: Negative for dysphoric mood, sleep disturbance and suicidal ideas. The patient is not nervous/anxious. Images from the original note were not included. [facility] Name: Tanisha Salter : 1940 Purpose: 3-month follow-up Today's Date:07/09/2023 Last Visit: 04/23/2023 (YOSHI MCFADDEN 06/05/2023) Chief complaint: low back pain (YOSHI MCFADDEN 06/05/2023) - Pain score 8/10. Patient is scheduled for Medial branch blocks bilateral L4-5,5-S1 x 2, RFA if positive x2 in [place] for his low back pain but before these injections can be approved his insurance requires that a disability questionnaire be filled out. Baseline ELDER: Pain Intensity 4 - The pain is very severe at the moment Personal Care (Washing/Dressing) 4 - I need some help every day in most aspects of self care Lifting 5 - I cannot lift or carry anything at all Walking 4 - Pain prevents me from walking more than 100 yards Sitting 1 - I can sit in my favorite chair as long as I like Standing 4 - Pain prevents me from standing more than 10 minutes Sleeping 0 - Pain does not prevent me from sleeping well Sex Life 4 - My sex life is nearly absent because of pain Social Life 3 - Pain has restricted my social life and I do not go out as often Traveling 3 - Pain restricts me to journeys of less than 1 hour Total Score 32 Interpretation 41% - 60% - severe disability Tanisha Salter is an established patient, returning today for continued evaluation and management of the chief complaint noted above. Interval History: Overall pain and functional disability: unchanged New Complaints: non Pain Description: Timing: constant Character: aching or stabbing Primary Location: axial low back Radiation: bilateral anterior thighs to the knees, occasionally into the feet Exacerbating factors: Walking, bending over a sink for more than a minute, squatting Relieving factors: sitting and lying down Interferes with: physical activity and walking The patient denies difficulty with bowel or bladder control, unintentional weight loss, and fevers, chills, or night sweats. Medications Prescribed: Started or modified: Diclofenac PRN basis - hold for now Discontinued: none Maintained at current dosages: none Tolerating Medication: yes Medications helping improve ADL's and Self-care: no Procedures Performed: DATE PROCEDURE IMPROVEMENT 07/01/2023 MBB L4-5, L5-S1 100% x 3 hours (see below) 04/01/2023 ILESI L3-4 No relief Therapies Attended: none Studies Obtained: none (relevant findings reported below) - he is going to meet up with Dr. Warner to discuss his CT Abdomen findings (obtained based upon actionable finding on the CT Lumbar). Appointment set for May. He had his first set of MBB's on 07/01/2023, the data was inconclusive. He had 100% relief of pain from hours 4-6 after the block, but was sitting during that time. From 90min - 3 hours post injection pain was between 50-75% improved with activity. He will need the 2nd set of blocks with more consistent activity during this critical window to confirm. We discussed today. ELDER Post MBB #1: Notable Events During Course of Treatment: 01/13/2023 - Initial HPI: Referred by Yolande Warner MD, for evaluation & management of low back pain Duration: 1 year Sudden onset? no, Trauma? No Some intermittent low back pain over the years, but nothing serious Prior Treatments: Medications (See below), Modalities (eg. Heat, Ice), Chiropractic Full Treatment , Home Exercise Program , and Activity Modification Saw a Chiropractor about 10 years ago Saw PT -10/2021, 6 visits Reports he was told he has peripheral neuropathy INTAKE PAIN ASSESSMENT 07/08/2023 07/09/2023 Are you having pain associated with your visit today? No Yes, Provider notified Pain Scales - Verbal (Numeric Rating or Visual Analog Scale) Pain Level - 8 Pain Location - Back-Lower Description - Sharp Duration Amount of Time - - Duration Units - Years Frequency - Intermittent Intervention/Comfort measure - Medication;Relaxation Pain Assessment - - Medications: Pain Medications Taken TO DATE (for the chief complaint(s)): Membrane Stabilizers: none NSAIDS: Naprosyn (Naproxen) and Mobic (Meloxicam) Opioids: Tramadol Muscle Relaxants: none Topicals: none Other Prescription or OTC Pain Medications: none Anti-depressants: none Non-Pain Meds of Note: none Allergies: ALLERGIES Allergen Reactions Demerol [Meperidine] Vomiting Sulfa (Sulfonamide * Unknown Elevated temperature Tetanus Toxoid Hives Compliance: PDMP website checked and validated. All prescriptions have been APPROPRIATELY filled. No suspicious activity was identified. on 07/09/2023 by Bull Lam MD Recent Drug screens: AG SPINE COMBINATION 01/22/2023 Questionnaire GREENLIGHT Completed Date 01/22/2023 Questionnaire Opiod Risk Tool Completed Date 01/22/2023 Comments 0 Risk Assessment: KELLE-7: KELLE - 7 SCORES 01/22/2023 KELLE-7 Score 1 (0-4) minimal anxiety, (5-9) mild anxiety, (10-14) moderate anxiety, (15-21) severe anxiety PHQ-9: PHQ-9 01/22/2023 Score 0 (0-4) minimal depression, (5-9) mild depression, (10-14) moderate depression, (15-19) moderately severe depression, (20-27) severe depression Opioid Risk Tool: Family History of Substance Abuse: 0 - No Personal History of Substance Abuse: 0 - No Age between 16-45: 0 - No History of Pre-Adolescence Sexual Abuse: 0 - No Psychological Disease: 0 - No Risk Total: 0 Total Score Risk Category: Low Risk 0-3 (0-3, low risk or no risk; 4-7, moderate risk, 8+, high risk) Diagnostic Studies: Relevant Imaging: Reviewed Personally on today's date, noted above MRI Spine Report No resulted procedures found. CT Lumbar 01/2023 RESULT: Counting reference: Lumbosacral junction. For the purposes of this report, L4-5 is considered the level of the iliac crest and assume there are 5 lumbar-type vertebrae. Anatomic variant: None. [employer] (topogram) images: No significant findings. Alignment: Grade 1 degenerative anterolisthesis of L2-L3. Alignment is otherwise anatomic. 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 Schmorl's nodes in the inferior endplates of L2, L3, and L4. No evidence of a lytic or blastic process in the visualized spine. No evidence of acute or chronic fracture. Paraspinal soft tissues: The paraspinal soft tissues planes are maintained. Atherosclerotic calcification in the aorta and branch vessels, with the central linear area of the calcification in the abdominal aorta which may be due to areas of prominent atherosclerosis versus aneurysm formation. T10-T11, T11-T12, and T12-L1: The visualized lower thoracic bony canal and foramina are patent. L1-L2: There is disc degeneration with diffuse disc bulge and facet arthropathy causing mild canal narrowing and moderate left foraminal stenosis. L2-L3: There is disc degeneration with diffuse disc bulge and facet arthropathy causing moderate to severe canal narrowing and severe bilateral foraminal stenosis. L3-L4: There is disc degeneration with diffuse disc bulge and facet arthropathy causing moderate canal narrowing, moderate right and severe left foraminal stenosis. L4-L5: There is disc degeneration with diffuse disc bulge and facet arthropathy causing mild canal narrowing and mild bilateral foraminal stenosis. L5-S1: Canal and foramina are patent. Facet arthropathy is noted. Sacrum and iliac wings: Partial fusion of the bilateral sacroiliac joints, likely degenerative. The visualized sacrum and iliac wings are within normal limits. IMPRESSION: No acute lumbar spine fracture or traumatic subluxation. Multilevel spondylosis as described, worst at L2-L3 with moderate to severe canal narrowing. Central linear area of the calcification in the abdominal aorta which may be due to areas of prominent atherosclerosis versus aneurysm formation, incompletely evaluated on this noncontrast exam. Consider correlation with CTA of the abdomen if clinically indicated. Anatomic Lumbar Variant: None. L4-5 is considered the level of the iliac crest and assume there are 5 lumbar-type vertebrae. X-ray Lumbar 12/2022 RESULT: Straightening of the normal lordosis is seen. Significant degenerative change involving the posterior elements from L2 through S1. Moderate disc space narrowing from L2 through S1 with osteophytosis. Posterior position of L3 with respect to L4 is seen. This does not change in flexion or extension to any significant degree. 5 lumbar type vertebrae. For numbering purposes, L4-5 is at the level of the iliac crest. Levoscoliosis of approximately 9 degrees in the lower lumbar region. IMPRESSION: DEGENERATIVE CHANGE AND ALIGNMENT ABNORMALITIES DESCRIBED. NO EVIDENCE OF DYNAMIC INSTABILITY X-ray Cervical 10/2019 4 views of the cervical spine demonstrate multilevel degenerative change with vertebral body osteophytosis and disc space narrowing, greatest at C5-6 and C6-7. There are no vertebral body compression deformities and alignment is well maintained. Bilateral obliques demonstrate severe foraminal narrowing at C4-5, C5-6 and C6-7 on the left and at C6-7 on the right. There is a moderate foraminal narrowing at C4-5 on the right.. The atlantoaxial interval and craniocervical junction are intact. There is no prevertebral soft tissue abnormality. Electrodiagnostic Study (EMG): None Recent Labs: Creatinine Date Value Ref Range Status 05/07/2023 0.95 0.73 - 1.22 mg/dL Final No results found for: GFR Glucose, Point of Care Date Value Ref Range Status 07/01/2023 122 (A) 74 - 99 mg/dL Final Comment: Location:[facility], [address] [place] [address], [id number] The Accu-Chek Inform II glucose meter has not been approved for testing on patients receiving intensive medical intervention or therapy and results from this point of care glucose test should not be used for patient management decisions in these cases. Inaccurate results may also occur from other interfering factors, such as N-acetylcysteine (blood concentrations of greater than 5mg/dL), galactose, extremes of hematocrit (<10 or >65), or high doses of ascorbic acid (vitamin C) greater than 3mg/dL. Consider alternate testing mechanisms (e.g. core lab, blood gas instrument) in the above situations. Current Medications, Past Medical History, Past Surgical History, Family History, Social History and Review of Systems: On today's date, noted above, I have confirmed and edited as necessary, the PFSH and ROS obtained by others. Physical Exam: 07/09/23 0759 Pulse: 65 Resp: 14 SpO2: 97% Constitutional:normal weight Eyes: Conjunctiva clear. No discharge from eyes Cardiovascular: Appears well perfused Lymphatic: No visible regional lymphadenopathy Skin: No visible rashes or ecchymosis Psychiatric: Full affect, Alert, Pleasant Neuro-Lower: Neural Tension Signs: Negative slump in Bilateral lower limbs Sensation: intact to light touch in the L2-S2 Bilateral lower limb dermatomes Muscle Tone: Normal and symmetric throughout without clonus Strength: Iliopsoas (L2): 5 Left, 5 Right Quadriceps (L3) 5 Left, 5 Right Anterior Tibialis (L4): 5 Left, 5 Right Extensor Hallucis Longus (L5): 4 Left, 5 Right Gastrocnemius (S1): 5 Left, 5 Right Reflexes: Decreased 1+ and symmetric Patellar, Achilles Musculoskeletal-Lower: Inspection: Symmetric without atrophy Palpation: Lumbar Paraspinal Tenderness: None on Bilateral side(s) Paraspinal Spasms: None PSIS Tenderness: None on Bilateral side(s) Greater Trochanter Tenderness: None on Bilateral side(s) Spine Range of Motion: Flexion: Decreased 75% With end range pain Extension: Decreased 50% With end range pain Combination extension and rotation pain: None Hip Range of Motion: Right Hip: Internal Rotation: Normal; Pain at end range: None External Rotation: Normal; Pain at end range: None Left Hip: Internal Rotation: Normal; Pain at end range: None External Rotation: Normal; Pain at end range: None Sacroiliac Maneuvers: Deferred Diagnoses: (M47.816) Lumbar spondylosis (primary encounter diagnosis) (M48.061) Spinal stenosis, lumbar region, without neurogenic claudication (M54.16) Lumbar radiculopathy Pertinent Past Medical History: Diabetic polyneuropathy, DM type 2, HLD, Prostate CA, Chronic LBP Impression: 83 year old male presents with complaint(s) of axial low back, intermittent claudication, most likely spinal stenosis as root cause. PT did not offer relief. Reports that he cannot tolerate MRI due to claustrophobia, requires sedation. Epidural did not offer sustained relief. Low back pain is facet-mediated. First set of Medial branch blocks was positive diagnostic, but there was question about his activity levels during a critical window post-injection. Plan: Tanisha Salter would benefit from the following to reach personal goals for decreasing pain, improving function and work participation, and/or improving quality of life: -Interventional Procedure: Medial branch blocks bilateral L4-5,5-S1 x 2, RFA if positive x2 (second MB scheduled for 08/05 - He will need the 2nd set of blocks with more consistent activity during this critical window to confirm. We discussed today.) The risks, benefits, alternative treatment options and prognosis of the procedure were discussed and all of the patient's questions/concerns were addressed to the patient s satisfaction. Patient was advised that they will need a peg driver for after the procedure and that if no peg driver is available and on site at the time of the procedure, the procedure will be cancelled. For any anticoagulants, the patient was advised on whether to continue or hold for this procedure. The patient expressed understanding and gave verbal consent to proceed. Medication(s): Diclofenac PRN basis - hold for now Additional Studies: none Referrals: No additional considerations at present Functional Zoroastrianism: No changes-continue current regimen Depending on response to the above plan, consider: Gabapentin, consider Epidural at different level (eg L4-5 vs L1-2). SCS not ideal given minimal limb pain. -Follow-up: after MBB #2 (Scheduled on 08/07/2023) Attribution: In addition to reviewing the information noted above, some elements copied from my most recent clinical note(s), including the physical exam (completed in entirety today), and the impression and plan sections, have been updated where appropriate. All reflect current medical decision making from today's date. Bull Lam MD [facility] documented in this encounter [facility] 07-08-2023 Note HNO ID: [id number] Author: Jesse Carver MD Service: ? Author Type: Physician Type: Progress Notes Filed: 07/08/2023 1:42 PM Note Text: Patient presents with: Eye Problem: Right eye possible stye. X2days. HPI: Skin Lesion: Location: right lower eyelid Duration: irritated this week Pruritis/Pain: not tender Change: NO Drainage/blister/pustule/ulcera tion: small pimple on eyelid Treatment: none MEDICATIONS: tamsulosin (FLOMAX) 0.4 mg Take 0.4 mg by mouth once daily. finasteride (PROSCAR) 5 mg tablet Take 5 mg by mouth once daily. metFORMIN (GLUCOPHAGE) 1,000 mg tablet Take 0.5 tablets by mouth once daily. pravastatin (PRAVACHOL) 20 mg tablet Take 1 tablet by mouth once daily. oxybutynin ER (DITROPAN XL) 10 mg 24 hr tablet Take 1 tablet by mouth once daily. ALLERGIES: ALLERGIES Allergen Reactions Demerol [Meperidine] Vomiting Sulfa (Sulfonamide * Unknown Elevated temperature Tetanus Toxoid Hives VITALS: BP 116/62 Pulse 72 Temp 36.6 ?C (97.9 ?F) Resp 16 Wt 86.2 kg (190 lb) SpO2 98% BMI 25.77 kg/m? PE: Pleasant, in no acute distress. EYE: right EOMI, sclera clear. 1mm pustule in the lid margin lateral lower eyelid. Trace erythema and inflammation palpebral conjunctiva inside the lesion. No preauricular lymphadenopathy. ASSESSMENT/PLAN: 1. Hordeolum externum of right lower eyelid - ICD9: 373.11, ICD10: H00.012 Warm compress a couple times per day. - ERYTHROMYCIN 5 MG/GRAM (0.5 %) EYE OINTMENT Follow up with eye doctor if not improving by next week. Jesse Carver MD [facility] 07-08-2023 History of Presen t illness Narrative Patient presents with: Eye Problem: Right eye possible stye. X2days. HPI: Skin Lesion: Location: right lower eyelid Duration: irritated this week Pruritis/Pain: not tender Change: NO Drainage/blister/pustule/ulcera tion: small pimple on eyelid Treatment: none MEDICATIONS: tamsulosin (FLOMAX) 0.4 mg Take 0.4 mg by mouth once daily. finasteride (PROSCAR) 5 mg tablet Take 5 mg by mouth once daily. metFORMIN (GLUCOPHAGE) 1,000 mg tablet Take 0.5 tablets by mouth once daily. pravastatin (PRAVACHOL) 20 mg tablet Take 1 tablet by mouth once daily. oxybutynin ER (DITROPAN XL) 10 mg 24 hr tablet Take 1 tablet by mouth once daily. ALLERGIES: ALLERGIES Allergen Reactions Demerol [Meperidine] Vomiting Sulfa (Sulfonamide * Unknown Elevated temperature Tetanus Toxoid Hives VITALS: BP 116/62 Pulse 72 Temp 36.6 C (97.9 F) Resp 16 Wt 86.2 kg (190 lb) SpO2 98% BMI 25.77 kg/m PE: Pleasant, in no acute distress. EYE: right EOMI, sclera clear. 1mm pustule in the lid margin lateral lower eyelid. Trace erythema and inflammation palpebral conjunctiva inside the lesion. No preauricular lymphadenopathy. ASSESSMENT/PLAN: 1. Hordeolum externum of right lower eyelid - ICD9: 373.11, ICD10: H00.012 Warm compress a couple times per day. - ERYTHROMYCIN 5 MG/GRAM (0.5 %) EYE OINTMENT Follow up with eye doctor if not improving by next week. Jesse Carver MD documented in this encounter [facility] 07-06-2023 Note HNO ID: [id number] Author: Bull Lam MD Service: ? Author Type: Physician Type: Progress Notes Filed: 07/09/2023 8:22 AM Note Text: [facility] Name: Tanisha Salter : 1940 Purpose: 3-month follow-up Today's Date:07/09/2023 Last Visit: 04/23/2023 (YOSHI MCFADDEN 06/05/2023) Chief complaint: low back pain (YOSHI MCFADDEN 06/05/2023) - Pain score 8/10. Patient is scheduled for Medial branch blocks bilateral L4-5,5-S1 x 2, RFA if positive x2 in [place] for his low back pain but before these injections can be approved his insurance requires that a disability questionnaire be filled out. Baseline ELDER: Pain Intensity 4 - The pain is very severe at the moment Personal Care (Washing/Dressing) 4 - I need some help every day in most aspects of self care Lifting 5 - I cannot lift or carry anything at all Walking 4 - Pain prevents me from walking more than 100 yards Sitting 1 - I can sit in my favorite chair as long as I like Standing 4 - Pain prevents me from standing more than 10 minutes Sleeping 0 - Pain does not prevent me from sleeping well Sex Life 4 - My sex life is nearly absent because of pain Social Life 3 - Pain has restricted my social life and I do not go out as often Traveling 3 - Pain restricts me to journeys of less than 1 hour Total Score 32 Interpretation 41% - 60% - severe disability Tanisha Salter is an established patient, returning today for continued evaluation and management of the chief complaint noted above. Interval History: Overall pain and functional disability: unchanged New Complaints: non Pain Description: Timing: constant Character: aching or stabbing Primary Location: axial low back Radiation: bilateral anterior thighs to the knees, occasionally into the feet Exacerbating factors: Walking, bending over a sink for more than a minute, squatting Relieving factors: sitting and lying down Interferes with: physical activity and walking The patient denies difficulty with bowel or bladder control, unintentional weight loss, and fevers, chills, or night sweats. Medications Prescribed: Started or modified: Diclofenac PRN basis - hold for now Discontinued: none Maintained at current dosages: none Tolerating Medication: yes Medications helping improve ADL's and Self-care: no Procedures Performed: DATE PROCEDURE IMPROVEMENT 07/01/2023 MBB L4-5, L5-S1 100% x 3 hours (see below) 04/01/2023 ILESI L3-4 No relief Therapies Attended: none Studies Obtained: none (relevant findings reported below) - he is going to meet up with Dr. Warner to discuss his CT Abdomen findings (obtained based upon actionable finding on the CT Lumbar). Appointment set for May. He had his first set of MBB's on 07/01/2023, the data was inconclusive. He had 100% relief of pain from hours 4-6 after the block, but was sitting during that time. From 90min - 3 hours post injection pain was between 50-75% improved with activity. He will need the 2nd set of blocks with more consistent activity during this critical window to confirm. We discussed today. ELDER Post MBB #1: Notable Events During Course of Treatment: 01/13/2023 - Initial HPI: Referred by Yolande Warner MD, for evaluation AND management of low back pain Duration: 1 year Sudden onset? no, Trauma? No Some intermittent low back pain over the years, but nothing serious Prior Treatments: Medications (See below), Modalities (eg. Heat, Ice), Chiropractic Full Treatment , Home Exercise Program , and Activity Modification Saw a Chiropractor about 10 years ago Saw PT 2-10/2021, 6 visits Reports he was told he has peripheral neuropathy INTAKE PAIN ASSESSMENT 07/08/2023 07/09/2023 Are you having pain associated with your visit today? No Yes, Provider notified Pain Scales - Verbal (Numeric Rating or Visual Analog Scale) Pain Level - 8 Pain Location - Back-Lower Description - Sharp Duration Amount of Time - - Duration Units - Years Frequency - Intermittent Intervention/Comfort measure - Medication;Relaxation Pain Assessment - - Medications: Pain Medications Taken TO DATE (for the chief complaint(s)): Membrane Stabilizers: none NSAIDS: Naprosyn (Naproxen) and Mobic (Meloxicam) Opioids: Tramadol Muscle Relaxants: none Topicals: none Other Prescription or OTC Pain Medications: none Anti-depressants: none Non-Pain Meds of Note: none Allergies: ALLERGIES Allergen Reactions Demerol [Meperidine] Vomiting Sulfa (Sulfonamide * Unknown Elevated temperature Tetanus Toxoid Hives Compliance: PDMP website checked and validated. All prescriptions have been APPROPRIATELY filled. No suspicious activity was identified. on 07/09/2023 by Bull Lam MD Recent Drug screens: [facility] SPINE COMBINATION 01/22/2023 Questionnaire GREENLIGHT Completed Date 01/22/2023 Questionnaire Opiod Risk Tool Completed Date 01/22/2023 Comm (more content not included)... [facility] 06-05-2023 Note HNO ID: [id number] Author: Padma Lombardo PA-C Service: ? 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 Persons Present: patient Chief Complaint/Reason: low back pain Interval History: Pain score 8/10. Patient is scheduled for Medial branch blocks bilateral L4-5,5-S1 x 2, RFA if positive x2 in [place] for his low back pain but before these injections can be approved his insurance requires that a disability questionnaire be filled out. Pain Intensity 4 - The pain is very severe at the moment Personal Care (Washing/Dressing) 4 - I need some help every day in most aspects of self care Lifting 5 - I cannot lift or carry anything at all Walking 4 - Pain prevents me from walking more than 100 yards Sitting 1 - I can sit in my favorite chair as long as I like Standing 4 - Pain prevents me from standing more than 10 minutes Sleeping 0 - Pain does not prevent me from sleeping well Sex Life 4 - My sex life is nearly absent because of pain Social Life 3 - Pain has restricted my social life and I do not go out as often Traveling 3 - Pain restricts me to journeys of less than 1 hour Total Score 32 Interpretation 41% - 60% - severe disability Review of Systems: Reviewed on today's date. Pertinent Positives: MSK - pain in the region being treated Neuro: No weakness or numbness in the region being treated Skin: Negative (No itching) Eyes: Negative (No blurred or double vision) Respiratory: Negative (No Cough, [id number], Dyspnea on exertion, wheezing) Cardiovascular: Negative (No Chest Pain, Tightness, Pressure, Palpitations) Gastrointestinal: Negative (No Abdominal pain, Nausea, Vomiting, Constipation, Diarrhea) Genitourinary: Negative (No dysuria) Hematologic: Negative (No bleeding, bruising) Endocrine: Negative (No hot/cold intolerance) Psychiatric: Negative (No change in mood/affect) Data Reviewed: None new to review Current Medications, Past Medical History, Past Surgical History, Family History AND Social History: Reviewed on today's date. 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 Follow-up: Keep scheduled appointments/procedures as scheduled Total Time Spent: 21 minutes Patient Instructions [facility] What is it? Facet joint and sacroiliac joint denervation (also called rhizotomy, ablation, neurotomy or neurolysis) uses radiofrequency energy to temporarily interrupt or destroy the nerve that carries pain signals from the facet (zygapophyseal) joint or sacroiliac joint. The nerve branches from the facet joints are called the medial branches and the nerve branches from the sacroiliac joints are called the lateral branches. Each facet joint receives input from the two medial branches and each sacroiliac joint receives input from four lateral branches. Prior to performing a radiofrequency procedure, an injection of short-acting anesthetic (numbing medication) is injected to achieve short-term pain relief. If significant short-term pain relief is seen with the anesthetic, then a patient may be a candidate for the radiofrequency denervation procedure. Who should get radiofrequency denervation? The procedures are typically ordered for patients who have gotten significant short-term pain relief from facet joint medial branch injections and sacroiliac joint injections but have failed to get long-term improvement from these injections. How long does the injection take? Typically the radiofrequency ablation takes about one hour to perform, but expect to spend 15-20 minutes at our facility due to preparation time before the procedure and evaluation after the procedure. What are the risks of radiofrequency ablation? With all injections there is a risk of infection, bleeding, temporary increase in pain and injury to the structures along the course of the needle or injury to other nerve branches by the radiofrequency probe. By using sterile equipment and technique we minimize the Risk of infection. The risk of bleeding is minimized by discontinuation of blood thinners (this typically requires approval from the prescribing doctor) and non-steroidal anti-inflammatory medications (except Celebrex). By using X-ray guidance (fluoroscopy) we minimize the risk of injury to the structure along the course of the needle. The sensory and motor stimulation reduce the risk of injury to other ne (more content not included)... [facility] 06-05-2023 Instructions Padma Lombardo PA-C - 06/05/2023 10:59 AM EDT [facility] What is it? Facet joint and sacroiliac joint denervation (also called rhizotomy, ablation, neurotomy or neurolysis) uses radiofrequency energy to temporarily interrupt or destroy the nerve that carries pain signals from the facet (zygapophyseal) joint or sacroiliac joint. The nerve branches from the facet joints are called the medial branches and the nerve branches from the sacroiliac joints are called the lateral branches. Each facet joint receives input from the two medial branches and each sacroiliac joint receives input from four lateral branches. Prior to performing a radiofrequency procedure, an injection of short-acting anesthetic (numbing medication) is injected to achieve short-term pain relief. If significant short-term pain relief is seen with the anesthetic, then a patient may be a candidate for the radiofrequency denervation procedure. Who should get radiofrequency denervation? The procedures are typically ordered for patients who have gotten significant short-term pain relief from facet joint medial branch injections and sacroiliac joint injections but have failed to get long-term improvement from these injections. How long does the injection take? Typically the radiofrequency ablation takes about one hour to perform, but expect to spend 15-20 minutes at our facility due to preparation time before the procedure and evaluation after the procedure. What are the risks of radiofrequency ablation? With all injections there is a risk of infection, bleeding, temporary increase in pain and injury to the structures along the course of the needle or injury to other nerve branches by the radiofrequency probe. By using sterile equipment and technique we minimize the Risk of infection. The risk of bleeding is minimized by discontinuation of blood thinners (this typically requires approval from the prescribing doctor) and non-steroidal anti-inflammatory medications (except Celebrex). By using X-ray guidance (fluoroscopy) we minimize the risk of injury to the structure along the course of the needle. The sensory and motor stimulation reduce the risk of injury to other nerves. Who should NOT have this injection? If you have an active infection, poorly controlled hypertension, diabetes, congestive heart failure or are unable to stop taking blood thinners, you may not be a candidate for these types of injections. documented in this encounter [facility] 06-05-2023 History of Presen t illness Narrative AMBULATORY TELEPHONE VISIT Tanisha Malcolm Balwinder 1940 has consented to this audio only telephone encounter. Persons Present: patient Chief Complaint/Reason: low back pain Interval History: Pain score 8/10. Patient is scheduled for Medial branch blocks bilateral L4-5,5-S1 x 2, RFA if positive x2 in [place] for his low back pain but before these injections can be approved his insurance requires that a disability questionnaire be filled out. Pain Intensity 4 - The pain is very severe at the moment Personal Care (Washing/Dressing) 4 - I need some help every day in most aspects of self care Lifting 5 - I cannot lift or carry anything at all Walking 4 - Pain prevents me from walking more than 100 yards Sitting 1 - I can sit in my favorite chair as long as I like Standing 4 - Pain prevents me from standing more than 10 minutes Sleeping 0 - Pain does not prevent me from sleeping well Sex Life 4 - My sex life is nearly absent because of pain Social Life 3 - Pain has restricted my social life and I do not go out as often Traveling 3 - Pain restricts me to journeys of less than 1 hour Total Score 32 Interpretation 41% - 60% - severe disability Review of Systems: Reviewed on today's date. Pertinent Positives: MSK - pain in the region being treated Neuro: No weakness or numbness in the region being treated Skin: Negative (No itching) Eyes: Negative (No blurred or double vision) Respiratory: Negative (No Cough, [id number], Dyspnea on exertion, wheezing) Cardiovascular: Negative (No Chest Pain, Tightness, Pressure, Palpitations) Gastrointestinal: Negative (No Abdominal pain, Nausea, Vomiting, Constipation, Diarrhea) Genitourinary: Negative (No dysuria) Hematologic: Negative (No bleeding, bruising) Endocrine: Negative (No hot/cold intolerance) Psychiatric: Negative (No change in mood/affect) Data Reviewed: None new to review Current Medications, Past Medical History, Past Surgical History, Family History & Social History: Reviewed on today's date. 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 Follow-up: Keep scheduled appointments/procedures as scheduled Total Time Spent: 21 minutes Patient Instructions [facility] What is it? Facet joint and sacroiliac joint denervation (also called rhizotomy, ablation, neurotomy or neurolysis) uses radiofrequency energy to temporarily interrupt or destroy the nerve that carries pain signals from the facet (zygapophyseal) joint or sacroiliac joint. The nerve branches from the facet joints are called the medial branches and the nerve branches from the sacroiliac joints are called the lateral branches. Each facet joint receives input from the two medial branches and each sacroiliac joint receives input from four lateral branches. Prior to performing a radiofrequency procedure, an injection of short-acting anesthetic (numbing medication) is injected to achieve short-term pain relief. If significant short-term pain relief is seen with the anesthetic, then a patient may be a candidate for the radiofrequency denervation procedure. Who should get radiofrequency denervation? The procedures are typically ordered for patients who have gotten significant short-term pain relief from facet joint medial branch injections and sacroiliac joint injections but have failed to get long-term improvement from these injections. How long does the injection take? Typically the radiofrequency ablation takes about one hour to perform, but expect to spend 15-20 minutes at our facility due to preparation time before the procedure and evaluation after the procedure. What are the risks of radiofrequency ablation? With all injections there is a risk of infection, bleeding, temporary increase in pain and injury to the structures along the course of the needle or injury to other nerve branches by the radiofrequency probe. By using sterile equipment and technique we minimize the Risk of infection. The risk of bleeding is minimized by discontinuation of blood thinners (this typically requires approval from the prescribing doctor) and non-steroidal anti-inflammatory medications (except Celebrex). By using X-ray guidance (fluoroscopy) we minimize the risk of injury to the structure along the course of the needle. The sensory and motor stimulation reduce the risk of injury to other nerves. Who should NOT have this injection? If you have an active infection, poorly controlled hypertension, diabetes, congestive heart failure or are unable to stop taking blood thinners, you may not be a candidate for these types of injections. Padma Lombardo PA-C ([place]) [facility] documented in this encounter [facility] 05-19-2023 Miscellaneous Notes Phoned patient and given provider's message below with verbalized understanding. Patient agreeable. Urine culture negative for infection. Other labs to work up anemia are normal. Recommend rechecking CBC in 2-3 months to monitor. Urine albumin level slightly high. Recommend he continue current regimen and work on DM control with diet. documented in this encounter [facility] 05-12-2023 Miscellaneous Notes Pt notified. Dai Romero Ma Urine culture did not show any infection. Stool was negative for blood and his other labs were normal. Devan Naylor APRN.CNP Pt is asking for lab results from 05/08/23 & 05/09/23. Erika Rodriguez LPN documented in this encounter [facility] 05-08-2023 Note HNO ID: [id number] Author: Yolande Warner MD Service: ? Author Type: Physician Type: Progress Notes Filed: 05/09/2023 8:06 AM Note Text: Chief Complaint Patient presents with: Follow Up: 6 month HPI Tanisha Salter is a 83 year old male who presents here today for Above Complaints.. DIABETES MELLITUS: Mr. Salter was last seen 6 months ago. Since our last visit he denies excessive thirst or increased frequency of urination, numbness, tingling or pain in extremities, new or unusual visual symptoms, and low sugar/hypoglycemic reactions. Follows a diabetic diet most of the time. He is compliant with medication(s) and is tolerating med(s) without any side effects. He reports checking his glucose on a infrequent to not at all basis. Patient's last HgA1C was Hemoglobin A1C (%) Date Value 05/07/2023 6.5 10/23/2022 6.3 10/18/2021 6.3 04/17/2021 6.4 ) Last Ophthalmology exam was within the past 12 months Last Podiatry exam was within the past [address] Gallo Patient following up with Dr. Lam pain management for chronic lower back pain and lumbar spinal stenosis. ADRIANO injection in March did not help with pain. Planning on nerve block and has procedure scheduled for next month. Dr. Art stopped his Flomax and Proscar and switched him to oxybutynin for overactive bladder. Only took it for 3-4 days and then stopped because he wanted to talk to us. Still complaining of urinary frequency without dysuria, hematuria, urgency, fever/chills, nasuea, vomiting, flank pain. Admits to some lower abdominal pain. Did not check UA. Following up with oncology for history of prostate cancer s/p radiation last May/July. PSA undetectable in December and has no signs of recurrence. Rechecking PSA every 6 months. PHQ-2 / Depression screen He in the past two weeks denies having felt down, depressed, hopeless or with little interest or pleasure in doing things. Past medical history, appointments, medications, allergies reviewed. 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 Art [address] Spinal stenosis lumbar Testicular cancer (HCC) radiation- 1980s Previous Surgical History PAST SURGICAL HISTORY Procedure Laterality Date COLONOSCOPY 2011 normal HEMORRHOIDECTOMY 1960s ORCHIECTOMY SIMPLE Left 1983 testicular cancer, with radiation PAST SURGICAL HISTORY OF Left knee arthroscopy TONSILLECTOMY HX childhood TRANSURETHRAL ELEC-SURG PROSTATECTOM 06/25/2022 Family History FAMILY HISTORY Problem Relation Age of Onset Alzheimer's Disease Mother Heart Mother Diabetes Father Heart Father Cancer Sister No Known Problems Brother No Known Problems Maternal Grandmother No Known Problems Maternal Grandfather Diabetes Paternal Grandmother No Known Problems Paternal Grandfather Patient Allergies ALLERGIES Allergen Reactions Demerol [Meperidine] Vomiting Sulfa (Sulfonamide * Unknown Elevated temperature Tetanus Toxoid Hives Current Medications Current Outpatient Medications on File Prior to Visit Medication Sig metFORMIN (GLUCOPHAGE) 1,000 mg tablet Take 0.5 tablets by mouth once daily. pravastatin (PRAVACHOL) 20 mg tablet Take 1 tablet by mouth once daily. No current facility-administered medications on file prior to visit. Social History Social History Tobacco Use Smoking status: Former Packs/day: 1.50 Years: 20.00 Additional pack years: 0.00 Total pack years: 30.00 Types: Cigarettes Quit date: 07/23/1990 Years since quittin.8 Smokeless tobacco: Never Vaping Use Vaping Use: Never used Substance Use Topics Alcohol use: Yes Comment: rarely Drug use: No Review of Symptoms REVIEW OF SYSTEMS GENERAL: No weight loss, malaise or fevers RESPIRATORY: Negative for cough, hemoptysis, wheezing, COPD, dyspnea or shortness of breath CARDIOVASCULAR: Negative for chest pain, leg swelling, hypertension, CHF or palpitations GI: No nausea, vomiting, or diarrhea SKIN: Negative for lesions, rash, and itching EXAM: BP 124/72 Pulse 69 Resp 16 Wt 84.7 kg (186 lb 12.8 oz) SpO2 95% BMI 25.33 kg/m? General Appearance: Well appearing, alert, in no acute distress, well-hydrated, well nourished.. Skin: Skin color, texture, turgor normal, no suspicious rashes or lesions. Lungs: Lungs clear to auscultation. No wheezing, rhonchi, rales.. Heart: RRR without murmur, gallop, or rubs. No ectopy. Abdomen: Abdomen soft. Bowel sounds normal. No masses, organomegaly, Mildly TTP over suprapubic region. Negative CVA tenderness. Extremities: No deformities, edema, skin discoloration, clubbing or cyanosis. Good c (more content not included)... [facility] 05-08-2023 History of Presen t illness Narrative Chief Complaint Patient presents with: Follow Up: 6 month HPI Tanisha Salter is a 83 year old male who presents here today for Above Complaints.. DIABETES MELLITUS: Mr. Salter was last seen 6 months ago. Since our last visit he denies excessive thirst or increased frequency of urination, numbness, tingling or pain in extremities, new or unusual visual symptoms, and low sugar/hypoglycemic reactions. Follows a diabetic diet most of the time. He is compliant with medication(s) and is tolerating med(s) without any side effects. He reports checking his glucose on a infrequent to not at all basis. Patient's last HgA1C was Hemoglobin A1C (%) Date Value 05/07/2023 6.5 10/23/2022 6.3 10/18/2021 6.3 04/17/2021 6.4 ) Last Ophthalmology exam was within the past 12 months Last Podiatry exam was within the past [address] Gallo Patient following up with Dr. Lam pain management for chronic lower back pain and lumbar spinal stenosis. ADRIANO injection in March did not help with pain. Planning on nerve block and has procedure scheduled for next month. Dr. Art stopped his Flomax and Proscar and switched him to oxybutynin for overactive bladder. Only took it for 3-4 days and then stopped because he wanted to talk to us. Still complaining of urinary frequency without dysuria, hematuria, urgency, fever/chills, nasuea, vomiting, flank pain. Admits to some lower abdominal pain. Did not check UA. Following up with oncology for history of prostate cancer s/p radiation last . PSA undetectable in December and has no signs of recurrence. Rechecking PSA every 6 months. PHQ-2 / Depression screen He in the past two weeks denies having felt down, depressed, hopeless or with little interest or pleasure in doing things. Past medical history, appointments, medications, allergies reviewed. 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 Art [address] Spinal stenosis lumbar Testicular cancer (HCC) radiation- Previous Surgical History PAST SURGICAL HISTORY Procedure Laterality Date COLONOSCOPY 2011 normal HEMORRHOIDECTOMY 1960s ORCHIECTOMY SIMPLE Left 1983 testicular cancer, with radiation PAST SURGICAL HISTORY OF Left knee arthroscopy TONSILLECTOMY HX childhood TRANSURETHRAL ELEC-SURG PROSTATECTOM 06/25/2022 Family History FAMILY HISTORY Problem Relation Age of Onset Alzheimer's Disease Mother Heart Mother Diabetes Father Heart Father Cancer Sister No Known Problems Brother No Known Problems Maternal Grandmother No Known Problems Maternal Grandfather Diabetes Paternal Grandmother No Known Problems Paternal Grandfather Patient Allergies ALLERGIES Allergen Reactions Demerol [Meperidine] Vomiting Sulfa (Sulfonamide * Unknown Elevated temperature Tetanus Toxoid Hives Current Medications Current Outpatient Medications on File Prior to Visit Medication Sig metFORMIN (GLUCOPHAGE) 1,000 mg tablet Take 0.5 tablets by mouth once daily. pravastatin (PRAVACHOL) 20 mg tablet Take 1 tablet by mouth once daily. No current facility-administered medications on file prior to visit. Social History Social History Tobacco Use Smoking status: Former Packs/day: 1.50 Years: 20.00 Additional pack years: 0.00 Total pack years: 30.00 Types: Cigarettes Quit date: 07/23/1990 Years since quittin.8 Smokeless tobacco: Never Vaping Use Vaping Use: Never used Substance Use Topics Alcohol use: Yes Comment: rarely Drug use: No Review of Symptoms REVIEW OF SYSTEMS GENERAL: No weight loss, malaise or fevers RESPIRATORY: Negative for cough, hemoptysis, wheezing, COPD, dyspnea or shortness of breath CARDIOVASCULAR: Negative for chest pain, leg swelling, hypertension, CHF or palpitations GI: No nausea, vomiting, or diarrhea SKIN: Negative for lesions, rash, and itching EXAM: BP 124/72 Pulse 69 Resp 16 Wt 84.7 kg (186 lb 12.8 oz) SpO2 95% BMI 25.33 kg/m General Appearance: Well appearing, alert, in no acute distress, well-hydrated, well nourished.. Skin: Skin color, texture, turgor normal, no suspicious rashes or lesions. Lungs: Lungs clear to auscultation. No wheezing, rhonchi, rales.. Heart: RRR without murmur, gallop, or rubs. No ectopy. Abdomen: Abdomen soft. Bowel sounds normal. No masses, organomegaly, Mildly TTP over suprapubic region. Negative CVA tenderness. Extremities: No deformities, edema, skin discoloration, clubbing or cyanosis. Good capillary refill. Health Maintenance List ADVANCE DIRECTIVE DISCUSSION Never done DEPRESSION ASSESSMENT Never done COVID-19 VACCINE(5 - Pfizer series) due on 11/15/2022 DILATED RETINAL EXAM due on 01/23/2023 DIABETIC FOOT EXAM due on 03/27/2023 URINE ALBUMIN:CREATININE RATIO due on 04/22/2023 INFLUENZA(1) due on 05/01/2023 HBA1C due on 11/05/2023 LDL CHOLESTEROL due on 05/07/2024 SHINGRIX VACCINE Completed PNEUMOCOCCAL: 65+ Completed HPV VACCINE Aged Out DTAP,TDAP,TD Discontinued Data reviewed Component Latest Ref Rng & Units 05/07/2023 WBC 3.70 - 11.00 k/uL 4.93 RBC 4.20 - 6.00 m/uL 4.08 (L) Hemoglobin 13.0 - 17.0 g/dL 12.6 (L) Hematocrit 39.0 - 51.0 % 38.4 (L) MCV 80.0 - 100.0 fL 94.1 MCH 26.0 - 34.0 pg 30.9 MCHC 30.5 - 36.0 g/dL 32.8 RDW-CV 11.5 - 15.0 % 13.2 Platelet Count 150 - 400 k/uL 204 MPV 9.0 - 12.7 fL 9.3 Neut% % 67.0 Abs Neut (ANC) 1.45 - 7.50 k/uL 3.30 Lymph% % 20.7 Abs Lymph 1.00 - 4.00 k/uL 1.02 Ford% % 9.3 Abs Ford <0.87 k/uL 0.46 Eosin% % 2.0 Abs Eosin <0.46 k/uL 0.10 Baso% % 0.8 Abs Baso <0.11 k/uL 0.04 Immature Gran % % 0.2 IMMATURE GRANS (ABS) <0.10 k/uL <0.03 NRBC /100 WBC 0.0 Absolute nRBC <0.01 k/uL <0.01 DTYPE Auto Protein, Total 6.3 - 8.0 g/dL 7.1 Albumin 3.9 - 4.9 g/dL 4.3 Calcium 8.5 - 10.2 mg/dL 10.1 Bilirubin, Total 0.2 - 1.3 mg/dL 0.2 Alkaline Phosphatase 38 - 113 U/L 55 AST 14 - 40 U/L 19 ALT 10 - 54 U/L 13 Glucose 74 - 99 mg/dL 131 (H) BUN 9 - 24 mg/dL 13 Creatinine 0.73 - 1.22 mg/dL 0.95 Sodium 136 - 144 mmol/L 136 Potassium 3.7 - 5.1 mmol/L 4.3 Chloride 97 - 105 mmol/L 99 CO2 22 - 30 mmol/L 26 Anion Gap 9 - 18 mmol/L 11 eGFR >=60 mL/min/1.73m 79 Total Cholesterol, Nonfasting <200 mg/dL 151 Triglycerides, Nonfasting <150 mg/dL 133 HDL Cholesterol, Nonfasting >39 mg/dL 40 LDL Cholesterol, Nonfasting <100 mg/dL 84 Non HDL Cholesterol, Nonfasting <130 mg/dL 111 VLDL Cholesterol, Nonfasting <30 mg/dL 27 Total Chol/HDL Ratio, Nonfasting <5.10 mg/dL 3.78 LDL/HDL Ratio, Nonfasting <2.54 mg/dL 2.10 Hemoglobin A1C 4.3 - 5.6 % 6.5 (H) Estimated Average Glucose mg/dL 140 ASSESSMENT/PLAN: 1. Type 2 diabetes mellitus without complication, without long-term current use of insulin (HCC) - ICD9: 250.00, ICD10: E11.9 (primary diagnosis) - Controlled - Continue current medications - Blood glucose monitoring on a once daily schedule - Counseled on healthy diet and regular exercise - Discussed diabetic education issues of diabetes complications and monitoring required, hypoglycemic/hyperglycemic symptoms, and medication-specific side effects and monitoring - Follow up in 6 months, sooner should any other issues arise. - ALBUMIN/CREAT RATIO RND UR 2. Urinary frequency - ICD9: 788.41, ICD10: R35.0 Suspect 2/2 overactive bladder, but with lower abdominal pain and frequency will check UA. Unable to give sample in office. Will drink fluids and give sample at the lab today. Push PO fluids while awaiting results. Start oxybutynin. - URINALYSIS WITH MICROSCOPIC, REFLEX CULTURE 3. OAB (overactive bladder) - ICD9: 596.51, ICD10: N32.81 See above. - URINALYSIS WITH MICROSCOPIC, REFLEX CULTURE 4. Prostate cancer (HCC) - ICD9: 185, ICD10: C61 In remission. F/u with oncology and urology as scheduled. 5. Ectatic abdominal aorta (HCC) - ICD9: 447.72, ICD10: I77.[address] scan 2.7 cm ectatic aorta. Repeat US in 1 year. - US SCREENING FOR AAA 6. Normocytic anemia - ICD9: 285.9, ICD10: D64.9 New finding. Denies bleeding symptoms. Obtain labs and stool study for workup. - IRON + TIBC - FERRITIN BLD - VITAMIN B12 BLOOD - FOLATE SERUM - FECAL OCCULT BLOOD TEST - LD LACTATE DEHYDRO - RETIC COUNT 7. Encounter for immunization - ICD9: V03.89, ICD10: Z23 - INFLUENZA VACCINE, PRSV FREE, AGE 65+ YR, HIGH DOSE, QUADRIVALENT (FLUZONE HIGH-DOSE) Yolande Warner MD documented in this encounter [facility] 05-07-2023 Note HNO ID: [id number] Author: Lucinda Gallo Service: ? Author Type: Physician Type: Progress Notes Filed: 05/07/2023 9:01 AM Note Text: Last saw PCP: 11/07/22 Subjective: Patient presents to clinic c/o painful toenails. They state that the nails are especially painful with shoe gear and pressure. Patient states that nails b/l hallux are painful. Patient admits to being diabetic No other pedal complaints at this time. Patient states no change in medications or medical history since last visit. Objective: [facility] and PT pulses are palpable bilateral. CFT is less than 5 seconds bilateral. Skin temperature is warm to cool proximal to distal bilateral. There is no edema or varicosities noted. Neuro: Protective sensation is intact to the foot and toes when tested with the 5.07 SWM bilateral. Vibratory sensation is decreased at the hallux IPJ bilateral. The hallux is downgoing bilateral. Derm: Nails 1-5 b/l are painful, discolored-yellow, thick, crumbly, dystrophic and with subungal debris. Skin is of normal turgor, texture and hair growth is present bilateral. There are no hyperkeratosis, ulcerations, scars, verruca or other lesions noted. Ortho: Muscle strength is 5/5 for all pedal groups tested. Ankle joint DF is full with the knee extended with no pain or crepitus noted. 1st MPJ ROM is full bilateral. Assessment: (B35.1) Onychomycosis (primary encounter diagnosis) (M79.675) Pain in toe of left foot (M79.674) Pain in toe of right foot (E11.42) Diabetic polyneuropathy associated with type 2 diabetes mellitus (HCC) Plan: Patient was seen and evaluated. Nails 1-5 bilateral were debrided in length and thickness. Small bleed to left hallux. Band aide offered but patient declined. Patient was instructed on the continued importance of diabetic foot care along with proper diet and keeping their blood sugar under control to prevent complications. Patient is to RTC in 3-4 months. Lucinda Gallo DPM [facility] 05-07-2023 Note HNO ID: [id number] Author: Evelina Carr LPN Service: ? Author Type: LICENSED NURSE Type: Progress Notes Filed: 05/07/2023 9:01 AM Note Text: AMB ROOMING INTAKE FLOWSHEET DATA Patient presents with: Left Foot - Established Patient, Follow Up, Diabetic Foot Care Right Foot - Established Patient, Follow Up, Diabetic Foot Care Evelina Carr LPN [facility] 05-07-2023 History of Presen t illness Narrative Last saw PCP: 11/07/22 Subjective: Patient presents to clinic c/o painful toenails. They state that the nails are especially painful with shoe gear and pressure. Patient states that nails b/l hallux are painful. Patient admits to being diabetic No other pedal complaints at this time. Patient states no change in medications or medical history since last visit. Objective: [facility] DP and PT pulses are palpable bilateral. CFT is less than 5 seconds bilateral. Skin temperature is warm to cool proximal to distal bilateral. There is no edema or varicosities noted. Neuro: Protective sensation is intact to the foot and toes when tested with the 5.07 SWM bilateral. Vibratory sensation is decreased at the hallux IPJ bilateral. The hallux is downgoing bilateral. Derm: Nails 1-5 b/l are painful, discolored-yellow, thick, crumbly, dystrophic and with subungal debris. Skin is of normal turgor, texture and hair growth is present bilateral. There are no hyperkeratosis, ulcerations, scars, verruca or other lesions noted. Ortho: Muscle strength is 5/5 for all pedal groups tested. Ankle joint DF is full with the knee extended with no pain or crepitus noted. 1st MPJ ROM is full bilateral. Assessment: (B35.1) Onychomycosis (primary encounter diagnosis) (M79.675) Pain in toe of left foot (M79.674) Pain in toe of right foot (E11.42) Diabetic polyneuropathy associated with type 2 diabetes mellitus (HCC) Plan: Patient was seen and evaluated. Nails 1-5 bilateral were debrided in length and thickness. Small bleed to left hallux. Band aide offered but patient declined. Patient was instructed on the continued importance of diabetic foot care along with proper diet and keeping their blood sugar under control to prevent complications. Patient is to RTC in 3-4 months. Lucinda Gallo DPM AMB ROOMING INTAKE FLOWSHEET DATA Patient presents with: Left Foot - Established Patient, Follow Up, Diabetic Foot Care Right Foot - Established Patient, Follow Up, Diabetic Foot Care Evelina Carr LPN documented in this encounter [facility] 05-07-2023 Instructions Lucinda Gallo - 05/07/2023 8:42 AM EDT Diabetes Foot Care Instructions When you have diabetes, proper foot care is very important. Poor foot care may lead to amputation of a foot or leg. As a person with diabetes, you are more vulnerable to foot problems, because diabetes can damage your nerves and reduce blood flow to your feet. Here are some diabetes foot care tips to follow: Wash and Dry Your Feet Daily Use mild soaps Use warm water Pat your skin dry; do not rub. Thoroughly dry your feet. After washing, use lotion on your feet to prevent cracking. Do not put lotion between your toes. Examine Your Feet Each Day Check the tops and bottoms of your feet. Have someone else look at your feet if you cannot see them. Check for dry, cracked skin. Look for blisters, cuts, scratches, or other sores. Check for redness, increased warmth, or tenderness when touching any area of your feet. Check for ingrown toenails, corns, and calluses. If you get a blister or sore from your shoes, do not pop it. Apply a bandage and wear a different pair of shoes. Take Care of Your Toenails Cut toenails after bathing, when they are soft. Cut toenails straight across and smooth with a nail file. Avoid cutting into the corners of toes. Do not cut cuticles. If you have neuropathy (or decreased sensation in your feet) a front office coordinator should always cut your toenails. Be Careful When Exercising Walk and exercise in comfortable shoes. Do not exercise when you have open sores on your feet. Protect Your Feet With Shoes and Socks Never go barefoot. Always protect your feet by wearing shoes or hard-soled slippers or footwear. Avoid shoes with high heels and pointed toes. Avoid shoes that expose your toes or heels (such as open-toed shoes or sandals). These types of shoes increase your risk for injury and potential infections. Try on new footwear with the type of socks you usually wear. Do not wear new shoes for more than an hour at a time. Change your socks daily. Look and feel inside your shoes before putting them on to make sure there are no foreign objects or rough areas. Avoid tight socks. Wear natural-fiber socks (cotton, wool, or a cotton-wool blend). Wear special shoes if your health care provider recommends them. Wear shoes/boots that will protect your feet from various weather conditions (cold, moisture, etc.). Make sure your shoes fit properly. If you have neuropathy (nerve damage), you may not notice that your shoes are too tight. Perform the footwear test described below. Footwear Test Use this simple test to see if your shoes fit correctly: Stand on a piece of paper. (Make sure you are standing and not sitting, because your foot changes shape when you stand.) Trace the outline of your foot. Trace the outline of your shoe. Compare the tracings: Is the shoe too narrow? Is your foot crammed into the shoe? The shoe should be at least 1/2 inch longer than your longest toe and as wide as your foot. Proper Shoe Choices The following types of shoes are best for people with diabetes Closed toes and heels Leather uppers without a seam inside At least 1/2 inch extra space at the end of your longest toe Inside of shoe should be soft with no rough areas Outer sole should be made of stiff material Shoes should be at least as wide as your feet Tips for Foot Care in Diabetes Don't wait to treat a minor foot problem if you have diabetes. Follow your health care provider's guidelines and first aid guidelines. Report foot injuries and infections to your health care provider immediately. Check water temperature with your elbow, not your foot. Do not use a heating pad on your feet. Do not cross your legs. Do not self-treat your corns, calluses, or other foot problems. Go to your health care provider or front office coordinator to treat these conditions. documented in this encounter [facility] 04-28-2023 Note HNO ID: [id number] Author: Sara Broussard Service: ? Author Type: ? Type: Progress Notes Filed: 04/29/2023 8:08 AM Note Text: . [facility] 04-23-2023 Note HNO ID: [id number] Author: Gi Bee LPN Service: ? Author Type: LICENSED NURSE Type: Progress Notes Filed: 04/23/2023 9:21 AM Note Text: Review of Systems Constitutional: Positive for activity change. Negative for chills, fever and unexpected weight change. Gastrointestinal: Negative for bowel retention or incontinence Genitourinary: Negative for difficulty urinating. Negative for bladder retention or incontinence Musculoskeletal: Positive for back pain and gait problem. Negative for arthralgias, joint swelling, myalgias, neck pain and neck stiffness. Neurological: Positive for weakness. Negative for numbness and headaches. Psychiatric/Behavioral: Negative for dysphoric mood, sleep disturbance and suicidal ideas. The patient is not nervous/anxious. [facility] 04-23-2023 Miscellaneous Notes Procedure(s) being scheduled: 1.Are you diabetic Yes. Please list the current medications being prescribed Metformin. 2. Are you on any blood thinners? No If yes, does it require a hold? No If yes, was approval letter sent? No 3. Are you taking any aspirin? No 4. Are you currently taking any antibiotics? No If yes, is it prophylactic or for treatment of an infection? NA 5. Do you have any allergies to latex? No 6. Do you have any allergies to seafood or shellfish? No 7. Do you have any allergies to x-ray dye? No 8. Did the physician instruct you to take any medication prior to your procedure? No 9. Does this procedure require a peg driver? Yes If yes, has patient been notified that a peg driver is needed and must be present at check in? Yes 10. Were the pre-procedure instructions explained and provided to the patient? Yes 11. Do you have a pacemaker? No 12. Do you have an internal stimulator of any kind? No If yes, please bring the remote with you to your procedure visit. 13. Have you received the COVID-19 Vaccine? Yes. If yes, date(s) received: 07/2022 (Patient should not receive a procedure including steroids 14 days prior to their first dose of the COVID vaccine. They should not receive any procedure containing steroids in the time frame between their 1st and 2nd doses of the COVID vaccine. They should not receive a procedure containing steroids 14 days after their 2nd dose of the COVID vaccine.) Jessy Garcia documented in this encounter [facility] 04-23-2023 Instructions Bull Lam MD - 04/23/2023 9:19 AM EDT Medial branch blocks (Low back facet (arthritic) joint blocks) - would do twice and have a follow-up call with the nurse practitioner to check if he has at least 3 hours of meaningful (80%) relief. If two good tests, we would do a treatment called Radiofrequency Ablation (RFA), where we use a special needle that heats up at the tip to stun the pain nerves to the joints. This would provide 6-12 months of relief of low back documented in this encounter [facility] 04-23-2023 History of Presen t illness Narrative Review of Systems Constitutional: Positive for activity change. Negative for chills, fever and unexpected weight change. Gastrointestinal: Negative for bowel retention or incontinence Genitourinary: Negative for difficulty urinating. Negative for bladder retention or incontinence Musculoskeletal: Positive for back pain and gait problem. Negative for arthralgias, joint swelling, myalgias, neck pain and neck stiffness. Neurological: Positive for weakness. Negative for numbness and headaches. Psychiatric/Behavioral: Negative for dysphoric mood, sleep disturbance and suicidal ideas. The patient is not nervous/anxious. Images from the original note were not included. [facility] Name: Tanisha Tanparker : 1940 Purpose: 2-month follow-up Today's Date:04/23/2023 Last Visit: 01/22/2023 Chief complaint: low back pain Tanisha Salter is an established patient, returning today for continued evaluation and management of the chief complaint noted above. Interval History: Overall pain and functional disability: unchanged New Complaints: non Pain Description: Timing: constant Character: aching or stabbing Primary Location: axial low back Radiation: bilateral anterior thighs to the knees, occasionally into the feet Exacerbating factors: Walking, bending over a sink for more than a minute, squatting Relieving factors: sitting and lying down Interferes with: physical activity and walking The patient denies difficulty with bowel or bladder control, unintentional weight loss, and fevers, chills, or night sweats. Medications Prescribed: Started or modified: none Discontinued: Voltaren 75mg BID PRN - took once, had concerns about possible constipation based upon reading the bottle and having a history of constipation Maintained at current dosages: none Tolerating Medication: yes Medications helping improve ADL's and Self-care: no Procedures Performed: DATE PROCEDURE IMPROVEMENT 04/01/2023 ILESI L3-4 No relief Therapies Attended: none Studies Obtained: X-ray and CT Lumbar, (relevant findings reported below) - he is going to meet up with Dr. Warner to discuss his CT Abdomen findings (obtained based upon actionable finding on the CT Lumbar). Appointment set for May. Notable Events During Course of Treatment: 01/13/2023 - Initial HPI: Referred by Yolande Warner MD, for evaluation & management of low back pain Duration: 1 year Sudden onset? no, Trauma? No Some intermittent low back pain over the years, but nothing serious Prior Treatments: Medications (See below), Modalities (eg. Heat, Ice), Chiropractic Full Treatment , Home Exercise Program , and Activity Modification Saw a Chiropractor about 10 years ago Saw PT 2-10/2021, 6 visits Reports he was told he has peripheral neuropathy INTAKE PAIN ASSESSMENT 04/03/2023 04/23/2023 Are you having pain associated with your visit today? - Yes, Provider notified Pain Scales - Verbal (Numeric Rating or Visual Analog Scale) Pain Level 0 8 Pain Location - Back-Lower Description - Aching Duration Amount of Time - - Duration Units - Years Frequency - Continuous Intervention/Comfort measure - Reposition;Relaxation;Cold Pain Assessment - - Medications: Pain Medications Taken TO DATE (for the chief complaint(s)): Membrane Stabilizers: none NSAIDS: Naprosyn (Naproxen) and Mobic (Meloxicam) Opioids: Tramadol Muscle Relaxants: none Topicals: none Other Prescription or OTC Pain Medications: none Anti-depressants: none Non-Pain Meds of Note: none Allergies: ALLERGIES Allergen Reactions Demerol [Meperidine] Vomiting Sulfa (Sulfonamide * Unknown Elevated temperature Tetanus Toxoid Hives Compliance: PDMP website checked and validated. All prescriptions have been APPROPRIATELY filled. No suspicious activity was identified. on 04/23/2023 by Bull Lam MD Recent Drug screens: AG SPINE COMBINATION 01/22/2023 Questionnaire GREENLIGHT Completed Date 01/22/2023 Questionnaire Opiod Risk Tool Completed Date 01/22/2023 Comments 0 Risk Assessment: KELLE-7: KELLE - 7 SCORES 01/22/2023 KELLE-7 Score 1 (0-4) minimal anxiety, (5-9) mild anxiety, (10-14) moderate anxiety, (15-21) severe anxiety PHQ-9: PHQ-9 01/22/2023 Score 0 (0-4) minimal depression, (5-9) mild depression, (10-14) moderate depression, (15-19) moderately severe depression, (20-27) severe depression Opioid Risk Tool: Family History of Substance Abuse: 0 - No Personal History of Substance Abuse: 0 - No Age between 16-45: 0 - No History of Pre-Adolescence Sexual Abuse: 0 - No Psychological Disease: 0 - No Risk Total: 0 Total Score Risk Category: Low Risk 0-3 (0-3, low risk or no risk; 4-7, moderate risk, 8+, high risk) Diagnostic Studies: Relevant Imaging: Reviewed Personally on today's date, noted above MRI Spine Report No resulted procedures found. CT Lumbar 01/2023 RESULT: Counting reference: Lumbosacral junction. For the purposes of this report, L4-5 is considered the level of the iliac crest and assume there are 5 lumbar-type vertebrae. Anatomic variant: None. [employer] (topogram) images: No significant findings. Alignment: Grade 1 degenerative anterolisthesis of L2-L3. Alignment is otherwise anatomic. Bone marrow /fracture: Anterior flowing osteophytes from L1 extending superiorly out of the [id number], likely due to diffuse idiopathic skeletal hyperostosis. Schmorl's nodes in the inferior endplates of L2, L3, and L4. No evidence of a lytic or blastic process in the visualized spine. No evidence of acute or chronic fracture. Paraspinal soft tissues: The paraspinal soft tissues planes are maintained. Atherosclerotic calcification in the aorta and branch vessels, with the central linear area of the calcification in the abdominal aorta which may be due to areas of prominent atherosclerosis versus aneurysm formation. T10-T11, T11-T12, and T12-L1: The visualized lower thoracic bony canal and foramina are patent. L1-L2: There is disc degeneration with diffuse disc bulge and facet arthropathy causing mild canal narrowing and moderate left foraminal stenosis. L2-L3: There is disc degeneration with diffuse disc bulge and facet arthropathy causing moderate to severe canal narrowing and severe bilateral foraminal stenosis. L3-L4: There is disc degeneration with diffuse disc bulge and facet arthropathy causing moderate canal narrowing, moderate right and severe left foraminal stenosis. L4-L5: There is disc degeneration with diffuse disc bulge and facet arthropathy causing mild canal narrowing and mild bilateral foraminal stenosis. L5-S1: Canal and foramina are patent. Facet arthropathy is noted. Sacrum and iliac wings: Partial fusion of the bilateral sacroiliac joints, likely degenerative. The visualized sacrum and iliac wings are within normal limits. IMPRESSION: No acute lumbar spine fracture or traumatic subluxation. Multilevel spondylosis as described, worst at L2-L3 with moderate to severe canal narrowing. Central linear area of the calcification in the abdominal aorta which may be due to areas of prominent atherosclerosis versus aneurysm formation, incompletely evaluated on this noncontrast exam. Consider correlation with CTA of the abdomen if clinically indicated. Anatomic Lumbar Variant: None. L4-5 is considered the level of the iliac crest and assume there are 5 lumbar-type vertebrae. X-ray Lumbar 12/2022 RESULT: Straightening of the normal lordosis is seen. Significant degenerative change involving the posterior elements from L2 through S1. Moderate disc space narrowing from L2 through S1 with osteophytosis. Posterior position of L3 with respect to L4 is seen. This does not change in flexion or extension to any significant degree. 5 lumbar type vertebrae. For numbering purposes, L4-5 is at the level of the iliac crest. Levoscoliosis of approximately 9 degrees in the lower lumbar region. IMPRESSION: DEGENERATIVE CHANGE AND ALIGNMENT ABNORMALITIES DESCRIBED. NO EVIDENCE OF DYNAMIC INSTABILITY X-ray Cervical 10/2019 4 views of the cervical spine demonstrate multilevel degenerative change with vertebral body osteophytosis and disc space narrowing, greatest at C5-6 and C6-7. There are no vertebral body compression deformities and alignment is well maintained. Bilateral obliques demonstrate severe foraminal narrowing at C4-5, C5-6 and C6-7 on the left and at C6-7 on the right. There is a moderate foraminal narrowing at C4-5 on the right.. The atlantoaxial interval and craniocervical junction are intact. There is no prevertebral soft tissue abnormality. Electrodiagnostic Study (EMG): None Recent Labs: Creatinine Date Value Ref Range Status 03/13/2023 0.99 0.73 - 1.22 mg/dL Final No results found for: GFR Glucose, Point of Care Date Value Ref Range Status 04/01/2023 116 (A) 74 - 99 mg/dL Final Comment: Location:[facility], [address] [place] [address], [id number] The Accu-Chek Inform II glucose meter has not been approved for testing on patients receiving intensive medical intervention or therapy and results from this point of care glucose test should not be used for patient management decisions in these cases. Inaccurate results may also occur from other interfering factors, such as N-acetylcysteine (blood concentrations of greater than 5mg/dL), galactose, extremes of hematocrit (<10 or >65), or high doses of ascorbic acid (vitamin C) greater than 3mg/dL. Consider alternate testing mechanisms (e.g. core lab, blood gas instrument) in the above situations. Current Medications, Past Medical History, Past Surgical History, Family History, Social History and Review of Systems: On today's date, noted above, I have confirmed and edited as necessary, the PFSH and ROS obtained by others. Physical Exam: 04/23/23 0845 Pulse: 76 Resp: 18 SpO2: 95% Constitutional:normal weight Eyes: Conjunctiva clear. No discharge from eyes Cardiovascular: Appears well perfused Lymphatic: No visible regional lymphadenopathy Skin: No visible rashes or ecchymosis Psychiatric: Full affect, Alert, Pleasant Neuro-Lower: Neural Tension Signs: Negative slump in Bilateral lower limbs Sensation: intact to light touch in the L2-S2 Bilateral lower limb dermatomes Muscle Tone: Normal and symmetric throughout without clonus Strength: Iliopsoas (L2): 5 Left, 5 Right Quadriceps (L3) 5 Left, 5 Right Anterior Tibialis (L4): 5 Left, 5 Right Extensor Hallucis Longus (L5): 4 Left, 5 Right Gastrocnemius (S1): 5 Left, 5 Right Reflexes: Decreased 1+ and symmetric Patellar, Achilles Musculoskeletal-Lower: Inspection: Symmetric without atrophy Palpation: Lumbar Paraspinal Tenderness: None on Bilateral side(s) Paraspinal Spasms: None PSIS Tenderness: None on Bilateral side(s) Greater Trochanter Tenderness: None on Bilateral side(s) Spine Range of Motion: Flexion: Decreased 75% With end range pain Extension: Decreased 50% With end range pain Combination extension and rotation pain: None Hip Range of Motion: Right Hip: Internal Rotation: Normal; Pain at end range: None External Rotation: Normal; Pain at end range: None Left Hip: Internal Rotation: Normal; Pain at end range: None External Rotation: Normal; Pain at end range: None Sacroiliac Maneuvers: Deferred Diagnoses: (M48.061) Spinal stenosis, lumbar region, without neurogenic claudication (primary encounter diagnosis) (M54.16) Lumbar radiculopathy (M47.816) Lumbar spondylosis Pertinent Past Medical History: Diabetic polyneuropathy, DM type 2, HLD, Prostate CA, Chronic LBP Impression: 83 year old male presents with complaint(s) of axial low back, intermittent claudication, most likely spinal stenosis as root cause. PT did not offer relief. Reports that he cannot tolerate MRI due to claustrophobia, requires sedation. Epidural did not offer sustained relief. Low back pain is facet-mediated. Plan: Tanisha Salter would benefit from the following to reach personal goals for decreasing pain, improving function and work participation, and/or improving quality of life: -Interventional Procedure: Medial branch blocks bilateral L4-5,5-S1 x 2, RFA if positive x2 The risks, benefits, alternative treatment options and prognosis of the procedure were discussed and all of the patient's questions/concerns were addressed to the patient s satisfaction. Patient was advised that they will need a peg driver for after the procedure and that if no peg driver is available and on site at the time of the procedure, the procedure will be cancelled. For any anticoagulants, the patient was advised on whether to continue or hold for this procedure. The patient expressed understanding and gave verbal consent to proceed. Medication(s): Diclofenac PRN basis - hold for now Additional Studies: none Referrals: No additional considerations at present Functional Zoroastrianism: No changes-continue current regimen Depending on response to the above plan, consider: Gabapentin -Follow-up: 3 months Attribution: In addition to reviewing the information noted above, some elements copied from my most recent clinical note(s), including the physical exam (completed in entirety today), and the impression and plan sections, have been updated where appropriate. All reflect current medical decision making from today's date. Bull Lam MD Pain Management [facility] documented in this encounter [facility] 04-20-2023 Note HNO ID: [id number] Author: Bull Lam MD Service: ? Author Type: Physician Type: Progress Notes Filed: 04/23/2023 9:21 AM Note Text: [facility] Name: Tainsha Salter : 1940 Purpose: 2-month follow-up Today's Date:04/23/2023 Last Visit: 01/22/2023 Chief complaint: low back pain Tanisha Salter is an established patient, returning today for continued evaluation and management of the chief complaint noted above. Interval History: Overall pain and functional disability: unchanged New Complaints: non Pain Description: Timing: constant Character: aching or stabbing Primary Location: axial low back Radiation: bilateral anterior thighs to the knees, occasionally into the feet Exacerbating factors: Walking, bending over a sink for more than a minute, squatting Relieving factors: sitting and lying down Interferes with: physical activity and walking The patient denies difficulty with bowel or bladder control, unintentional weight loss, and fevers, chills, or night sweats. Medications Prescribed: Started or modified: none Discontinued: Voltaren 75mg BID PRN - took once, had concerns about possible constipation based upon reading the bottle and having a history of constipation Maintained at current dosages: none Tolerating Medication: yes Medications helping improve ADL's and Self-care: no Procedures Performed: DATE PROCEDURE IMPROVEMENT 04/01/2023 ILESI L3-4 No relief Therapies Attended: none Studies Obtained: X-ray and CT Lumbar, (relevant findings reported below) - he is going to meet up with Dr. Warner to discuss his CT Abdomen findings (obtained based upon actionable finding on the CT Lumbar). Appointment set for May. Notable Events During Course of Treatment: 01/13/2023 - Initial HPI: Referred by Yolande Warner MD, for evaluation AND management of low back pain Duration: 1 year Sudden onset? no, Trauma? No Some intermittent low back pain over the years, but nothing serious Prior Treatments: Medications (See below), Modalities (eg. Heat, Ice), Chiropractic Full Treatment , Home Exercise Program , and Activity Modification Saw a Chiropractor about 10 years ago Saw PT 2-10/2021, 6 visits Reports he was told he has peripheral neuropathy INTAKE PAIN ASSESSMENT 04/03/2023 04/23/2023 Are you having pain associated with your visit today? - Yes, Provider notified Pain Scales - Verbal (Numeric Rating or Visual Analog Scale) Pain Level 0 8 Pain Location - Back-Lower Description - Aching Duration Amount of Time - - Duration Units - Years Frequency - Continuous Intervention/Comfort measure - Reposition;Relaxation;Cold Pain Assessment - - Medications: Pain Medications Taken TO DATE (for the chief complaint(s)): Membrane Stabilizers: none NSAIDS: Naprosyn (Naproxen) and Mobic (Meloxicam) Opioids: Tramadol Muscle Relaxants: none Topicals: none Other Prescription or OTC Pain Medications: none Anti-depressants: none Non-Pain Meds of Note: none Allergies: ALLERGIES Allergen Reactions Demerol [Meperidine] Vomiting Sulfa (Sulfonamide * Unknown Elevated temperature Tetanus Toxoid Hives Compliance: PDMP website checked and validated. All prescriptions have been APPROPRIATELY filled. No suspicious activity was identified. on 04/23/2023 by Bull Lam MD Recent Drug screens: AG SPINE COMBINATION 01/22/2023 Questionnaire GREENLIGHT Completed Date 01/22/2023 Questionnaire Opiod Risk Tool Completed Date 01/22/2023 Comments 0 Risk Assessment: KELLE-7: KELLE - 7 SCORES 01/22/2023 KELLE-7 Score 1 (0-4) minimal anxiety, (5-9) mild anxiety, (10-14) moderate anxiety, (15-21) severe anxiety PHQ-9: PHQ-9 01/22/2023 Score 0 (0-4) minimal depression, (5-9) mild depression, (10-14) moderate depression, (15-19) moderately severe depression, (20-27) severe depression Opioid Risk Tool: Family History of Substance Abuse: 0 - No Personal History of Substance Abuse: 0 - No Age between 16-45: 0 - No History of Pre-Adolescence Sexual Abuse: 0 - No Psychological Disease: 0 - No Risk Total: 0 Total Score Risk Category: Low Risk 0-3 (0-3, low risk or no risk; 4-7, moderate risk, 8+, high risk) Diagnostic Studies: Relevant Imaging: Reviewed Personally on today's date, noted above MRI Spine Report No resulted procedures found. CT Lumbar 01/2023 RESULT: Counting reference: Lumbosacral junction. For the purposes of this report, L4-5 is considered the level of the iliac crest and assume there are 5 lumbar-type vertebrae. Anatomic variant: None. Super[employer] (topogram) images: No significant findings. Alignment: Grade 1 degenerative anterolisthesis of L2-L3. Alignment is otherwise anatomic. Bone marrow /fracture: Anterior flowing osteophytes from L1 extending superiorly out of the [id number], likely due to diffuse idiopathic skeletal hyperostos (more content not included)... [facility] 04-13-2023 Miscellaneous Notes Patient is due for follow-up. Please assist in scheduling. Devan Naylor APRN.CARISSA Patient phones requesting refills as follows: Requested Prescriptions Pending Prescriptions Disp Refills metFORMIN (GLUCOPHAGE) 1,000 mg tablet 45 tablet 1 Sig: Take 0.5 tablets by mouth once daily. RAFAEL 11/07/2022 NOV 05/11/2023 Please review and advise. Judy Little LPN documented in this encounter [facility] 04-01-2023 Note HNO ID: [id number] Author: Tod Beck RN Service: ? Author Type: Registered Nurse Type: Nursing Progress Note Filed: 04/01/2023 8:39 AM Note Text: Low back spine bandaid clean, dry , and intact. Patient denies numbness, tingling,and pain. [facility] 03-13-2023 Note HNO ID: [id number] Author: RT Tammy(R) Service: ? Author Type: Drive Worker Type: Progress Notes Filed: 03/13/2023 4:23 PM Note Text: Radiology Service Progress Note DATE OF SERVICE: March 13, 2023 TIME: 4:23 PM PATIENT IDENTITY VERIFICATION COMPLETED USING TWO (2) STANDARD IDENTIFIERS: Name and Date of confirmed by patient verbally. FALL SCREENING: Has the patient had 2 falls in the last year or 1 fall with injury or currently using an Ambulatory Assistive Device (Walker, Cane, Wheelchair, Crutches, etc.)? No PATIENT GENDER DATA: Male PATIENT RELEVANT IMPLANT DATA REVIEWED: Yes ALLERGIES: Reviewed and unchanged CONTRAST ALLERGY: NO. EXAM: CT -CONTRAST INDUCED NEPHROPATHY RISK FACTORS: Patient age > 60 years CREATININE: Creatinine Date Value Ref Range Status 03/13/2023 0.99 0.73 - 1.22 mg/dL Final 10/23/2022 0.95 0.73 - 1.22 mg/dL Final 04/22/2022 1.03 0.73 - 1.22 mg/dL Final Estimated Glomerular Filtration Rate Date Value Ref Range Status 03/13/2023 76 >=60 mL/min/1.73m? Final Comment: Estimated Glomerular Filtration Rate (eGFR) is calculated using the 2020 CKD-EPI creatinine equation. This equation utilizes serum creatinine, sex, and age as parameters. The creatinine assay has traceable calibration to isotope dilution-mass spectrometry. Refer to KDIGO guidelines for clinical interpretation. In patients with unstable renal function, e.g. those with acute kidney injury, the eGFR may not accurately reflect actual GFR. eGFR- Date Value Ref Range Status 10/18/2021 >60 Final P.O.C.T. RESULTS: POC done: Yes, See Lab Tab March 13, 2023 TREATMENT: N/A PERIPHERAL IV DATA: Ambulatory: A peripheral IV was started in the Left antecubital site with a Angio cath: 18 gauge. RADIOLOGY DEPARTMENT: CT; Exam(s) Completed: CTA Abdomen Pelvis SIGNATURE: RT Tiffanie(R) PATIENT NAME: Tanisha Salter DATE: March 13, 2023 TIME: 4:23 PM [facility] 03-13-2023 History of Presen t illness Narrative Radiology Service Progress Note DATE OF SERVICE: March 13, 2023 TIME: 4:23 PM PATIENT IDENTITY VERIFICATION COMPLETED USING TWO (2) STANDARD IDENTIFIERS: Name and Date of confirmed by patient verbally. FALL SCREENING: Has the patient had 2 falls in the last year or 1 fall with injury or currently using an Ambulatory Assistive Device (Walker, Cane, Wheelchair, Crutches, etc.)? No PATIENT GENDER DATA: Male PATIENT RELEVANT IMPLANT DATA REVIEWED: Yes ALLERGIES: Reviewed and unchanged CONTRAST ALLERGY: NO. EXAM: CT -CONTRAST INDUCED NEPHROPATHY RISK FACTORS: Patient age > 60 years CREATININE: Creatinine Date Value Ref Range Status 03/13/2023 0.99 0.73 - 1.22 mg/dL Final 10/23/2022 0.95 0.73 - 1.22 mg/dL Final 04/22/2022 1.03 0.73 - 1.22 mg/dL Final Estimated Glomerular Filtration Rate Date Value Ref Range Status 03/13/2023 76 >=60 mL/min/1.73m Final Comment: Estimated Glomerular Filtration Rate (eGFR) is calculated using the 2020 CKD-EPI creatinine equation. This equation utilizes serum creatinine, sex, and age as parameters. The creatinine assay has traceable calibration to isotope dilution-mass spectrometry. Refer to KDIGO guidelines for clinical interpretation. In patients with unstable renal function, e.g. those with acute kidney injury, the eGFR may not accurately reflect actual GFR. eGFR- Date Value Ref Range Status 10/18/2021 >60 Final P.O.C.T. RESULTS: POC done: Yes, See Lab Tab March 13, 2023 TREATMENT: N/A PERIPHERAL IV DATA: Ambulatory: A peripheral IV was started in the Left antecubital site with a Angio cath: 18 gauge. RADIOLOGY DEPARTMENT: CT; Exam(s) Completed: CTA Abdomen Pelvis SIGNATURE: Manju RT Lorene(R) PATIENT NAME: Tanisha Salter DATE: March 13, 2023 TIME: 4:23 PM documented in this encounter [facility] 03-11-2023 Note HNO ID: [id number] Author: Lucinda Gallo Service: ? Author Type: Physician Type: Progress Notes Filed: 03/11/2023 8:36 AM Note Text: Last saw pcp: 11/07/22 Subjective: Patient presents to clinic c/o painful toenails. They state that the nails are especially painful with shoe gear and pressure. Patient states that nails 1-5 b/l are painful. Patient admits to being diabetic. No other pedal complaints at this time. Patient states no change in medications or medical history since last visit. Objective: Patient presents to clinic ambulating in [facility] Vasc: DP and PT pulses are decreased bilateral. CFT is less than 5 seconds bilateral. Skin temperature is warm to cool proximal to distal bilateral. There is no edema or varicosities noted. Neuro: Protective sensation is intact to the foot and toes when tested with the 5.07 SWM bilateral. Vibratory sensation is decreased at the hallux IPJ bilateral. The hallux is downgoing bilateral. Derm: Nails 1-5 b/l are painful, discolored-yellow, thick, crumbly, dystrophic and with subungal debris. There is skin lesion along the medial aspect of right 4th toe from nail deformity. No signs of infection. Skin is of normal turgor, texture and hair growth is present bilateral. There are no hyperkeratosis, ulcerations, scars, verruca or other lesions noted. Ortho: Muscle strength is 5/5 for all pedal groups tested. Ankle joint DF is decreased with the knee extended with no pain or crepitus noted. 1st MPJ ROM is decreased bilateral. Assessment: (B35.1) Onychomycosis (primary encounter diagnosis) (M79.675) Pain in toe of left foot (M79.674) Pain in toe of right foot (E11.42) Diabetic polyneuropathy associated with type 2 diabetes mellitus (HCC) (R09.89) Diminished pulses in lower extremity (L98.0) Pyogenic granuloma Plan: Patient was seen and evaluated. Nails 1-5 bilateral were debrided in length and thickness. He does have pyogenic granuloma formation to right 4th toe medial aspect and this did bleed while cutting the nail. I cleaned the toe with alcohol and applied band aide and topical antibioic. Discussed removal of the nail but he has elected to monitor. Informed him this may return. Patient was instructed on the continued importance of diabetic foot care along with proper diet and keeping their blood sugar under control to prevent complications. Patient is to RTC in 3-4 months. Lucinda Gallo DPM [facility] 03-11-2023 Note HNO ID: [id number] Author: Evelina Carr LPN Service: ? Author Type: LICENSED NURSE Type: Progress Notes Filed: 03/11/2023 8:36 AM Note Text: AMB ROOMING INTAKE FLOWSHEET DATA Patient presents with: Left Foot - Established Patient, Diabetic Foot Care Right Foot - Established Patient, Diabetic Foot Care Patient present to office for 9 week follow up. Evelina Carr LPN [facility] 02-25-2023 Miscellaneous Notes Patient notified of results, verbalizes understanding of instructions. Ary Gupta MA For CT with contrast he will need to hold his metformin for 2 days after the imaging. Recommend pushing PO fluids to flush kidneys after the study. Avoid NSAIDs OTC. Patient stops by office today. Scheduled for CT of AAA d/t original CT of of lumbar spine showing actionable finding: calcification in the abdominal aorta. Patient wanted PCP to be aware & was unsure if medications may need to be stopped prior to imaging d/t DM. Ary Gupta MA documented in this encounter [facility] 02-25-2023 Miscellaneous Notes Procedure(s) being scheduled: 1.Are you diabetic Yes. Please list the current medications being prescribed Metformin. 2. Are you on any blood thinners? No If yes, does it require a hold? No If yes, was approval letter sent? No 3. Are you taking any aspirin? No 4. Are you currently taking any antibiotics? No If yes, is it prophylactic or for treatment of an infection? 5. Do you have any allergies to latex? No 6. Do you have any allergies to seafood or shellfish? No 7. Do you have any allergies to x-ray dye? No 8. Did the physician instruct you to take any medication prior to your procedure? No 9. Does this procedure require a peg driver? Yes If yes, has patient been notified that a peg driver is needed and must be present at check in? Yes 10. Were the pre-procedure instructions explained and provided to the patient? Yes 11. Do you have a pacemaker? No 12. Do you have an internal stimulator of any kind? No If yes, please bring the remote with you to your procedure visit. 13. Have you received the COVID-19 Vaccine? Yes. If yes, date(s) received: 07/18/22 (Patient should not receive a procedure including steroids 14 days prior to their first dose of the COVID vaccine. They should not receive any procedure containing steroids in the time frame between their 1st and 2nd doses of the COVID vaccine. They should not receive a procedure containing steroids 14 days after their 2nd dose of the COVID vaccine.) Sara Broussard documented in this encounter [facility] 02-19-2023 Miscellaneous Notes I called Mr. Salter, informed him of the actionable finding on the CT. He is amenable to the CTA. I am ordering this. It is not a STAT order, but I suggested that it would be good to get this within the next month. We also discussed the stenosis and facet arthritis on CT. He is amenable to an epidural steroid injection. I will place an order for this as well. Bull Lam III, MD, NANCY documented in this encounter [facility] 02-19-2023 Note HNO ID: [id number] Author: Manju Hdz, RT(R) Service: ? Author Type: Drive Worker Type: Progress Notes Filed: 02/19/2023 3:11 PM Note Text: Radiology Service Progress Note PATIENT NAME: Tanisha Salter DATE OF SERVICE: February 19, 2023 TIME: 3:11 PM PATIENT IDENTITY VERIFICATION COMPLETED USING TWO (2) IDENTIFIERS: Name and Date of confirmed by patient verbally. FALL SCREENING: Has the patient had 2 falls in the last year or 1 fall with injury or currently using an Ambulatory Assistive Device (Walker, Cane, Wheelchair, Crutches, etc.)? No PATIENT GENDER DATA: Male PATIENT RELEVANT IMPLANT DATA REVIEWED: Yes RADIOLOGY DEPARTMENT: CT; Exam(s) Completed: Spine PERIPHERAL IV DATA: Not applicable SIGNED BY: RT Tiffanie(R) February 19, 2023 3:11 PM [facility] 02-19-2023 History of Presen t illness Narrative Radiology Service Progress Note PATIENT NAME: Tanisha Salter DATE OF SERVICE: February 19, 2023 TIME: 3:11 PM PATIENT IDENTITY VERIFICATION COMPLETED USING TWO (2) IDENTIFIERS: Name and Date of confirmed by patient verbally. FALL SCREENING: Has the patient had 2 falls in the last year or 1 fall with injury or currently using an Ambulatory Assistive Device (Walker, Cane, Wheelchair, Crutches, etc.)? No PATIENT GENDER DATA: Male PATIENT RELEVANT IMPLANT DATA REVIEWED: Yes RADIOLOGY DEPARTMENT: CT; Exam(s) Completed: Spine PERIPHERAL IV DATA: Not applicable SIGNED BY: RT Tiffanie(R) February 19, 2023 3:11 PM documented in this encounter [facility] 01-22-2023 Note HNO ID: [id number] Author: RT Mj(R) Service: ? Author Type: Technologist Type: Progress Notes Filed: 01/22/2023 10:37 AM Note Text: Radiology Service Progress Note PATIENT NAME: Tanisha Salter DATE OF SERVICE: January 22, 2023 TIME: 10:36 AM PATIENT IDENTITY VERIFICATION COMPLETED USING TWO (2) IDENTIFIERS: Name and Date of confirmed by patient verbally. FALL SCREENING: Has the patient had 2 falls in the last year or 1 fall with injury or currently using an Ambulatory Assistive Device (Walker, Cane, Wheelchair, Crutches, etc.)? No PATIENT GENDER DATA: Male PATIENT RELEVANT IMPLANT DATA REVIEWED: Not Applicable RADIOLOGY DEPARTMENT: LUMBAR AP/LAT/FLEX/EXT WT BEARING PERIPHERAL IV DATA: Not applicable SIGNED BY: RT Mj(R) January 22, 2023 10:36 AM [facility] 01-22-2023 Note HNO ID: [id number] Author: Erika Mason MA Service: ? Author Type: Sediment Remediation Consultant Type: Progress Notes Filed: 01/22/2023 9:30 AM Note Text: Review of Systems Constitutional: Negative for activity change, chills, fever and unexpected weight change. Gastrointestinal: Negative for bowel retention or incontinence Genitourinary: Negative for difficulty urinating. Negative for bladder retention or incontinence Musculoskeletal: Positive for back pain, gait problem, myalgias and neck stiffness. Negative for arthralgias, joint swelling and neck pain. Neurological: Positive for weakness and numbness. Negative for headaches. Psychiatric/Behavioral: Negative for dysphoric mood, sleep disturbance and suicidal ideas. The patient is not nervous/anxious. [facility] 01-13-2023 Note HNO ID: [id number] Author: Bull Lam MD Service: ? Author Type: Physician Type: Progress Notes Filed: 01/22/2023 9:30 AM Note Text: [facility] Today's Date: 01/22/2023 Last Visit: N/A Name: Tanisha Salter : 1940 Purpose: New Patient Consultation Chief complaint: low back pain Pain Description: Timing: constant Character: aching or stabbing Primary Location: axial low back Radiation: bilateral anterior thighs to the knees Exacerbating factors: Walking, bending over a sink for more than a minute, squatting Relieving factors: sitting and lying down Interferes with: physical activity and walking The patient denies difficulty with bowel or bladder control, unintentional weight loss, and fevers, chills, or night sweats. Notable Events During Course of Treatment: 01/13/2023 - Initial HPI: Referred by Yolande Warner MD, for evaluation AND management of low back pain Duration: 1 year Sudden onset? no, Trauma? No Some intermittent low back pain over the years, but nothing serious Prior Treatments: Medications (See below), Modalities (eg. Heat, Ice), Chiropractic Full Treatment , Home Exercise Program , and Activity Modification Saw a Chiropractor about 10 years ago Saw PT 2-10/2021, 6 visits Reports he was told he has peripheral neuropathy INTAKE PAIN ASSESSMENT 01/07/2023 01/22/2023 Are you having pain associated with your visit today? No Yes, Provider notified Pain Scales - Verbal (Numeric Rating or Visual Analog Scale) Pain Level - 5 Pain Location - Back-Lower Description - Aching;Stabbing;Sore Duration Amount of Time - - Duration Units - Years Frequency - Continuous Intervention/Comfort measure - Reposition;Relaxation;Positioni ng Medications: CURRENT Pain Medications: Mobic 15mg - taking PRN, reports this does not help Pain Medications Taken TO DATE (for the chief complaint(s)): Membrane Stabilizers: none NSAIDS: Naprosyn (Naproxen) and Mobic (Meloxicam) Opioids: Tramadol Muscle Relaxants: none Topicals: none Other Prescription or OTC Pain Medications: none Anti-depressants: none Non-Pain Meds of Note: none Allergies: ALLERGIES Allergen Reactions Demerol [Meperidine] Vomiting Sulfa (Sulfonamide * Unknown Elevated temperature Tetanus Toxoid Hives Compliance: PDMP website checked and validated. All prescriptions have been APPROPRIATELY filled. No suspicious activity was identified. on 01/22/2023 by Bull Lam MD Recent Drug screens: No flowsheet data found. Risk Assessment: KELLE-7: KELLE - 7 SCORES 01/22/2023 KELLE-7 Score 1 (0-4) minimal anxiety, (5-9) mild anxiety, (10-14) moderate anxiety, (15-21) severe anxiety PHQ-9: PHQ-9 01/22/2023 Score 0 (0-4) minimal depression, (5-9) mild depression, (10-14) moderate depression, (15-19) moderately severe depression, (20-27) severe depression Opioid Risk Tool: Family History of Substance Abuse: 0 - No Personal History of Substance Abuse: 0 - No Age between 16-45: 0 - No History of Pre-Adolescence Sexual Abuse: 0 - No Psychological Disease: 0 - No Risk Total: 0 Total Score Risk Category: Low Risk 0-3 (0-3, low risk or no risk; 4-7, moderate risk, 8+, high risk) Diagnostic Studies: Relevant Imaging: Reviewed Personally on today's date, noted above MRI Spine Report No resulted procedures found. X-ray Cervical 10/2019 4 views of the cervical spine demonstrate multilevel degenerative change with vertebral body osteophytosis and disc space narrowing, greatest at C5-6 and C6-7. There are no vertebral body compression deformities and alignment is well maintained. Bilateral obliques demonstrate severe foraminal narrowing at C4-5, C5-6 and C6-7 on the left and at C6-7 on the right. There is a moderate foraminal narrowing at C4-5 on the right.. The atlantoaxial interval and craniocervical junction are intact. There is no prevertebral soft tissue abnormality. Electrodiagnostic Study (EMG): None Recent Labs: Creatinine Date Value Ref Range Status 10/23/2022 0.95 0.73 - 1.22 mg/dL Final No results found for: GFR No results found for: PCGLUCOSE Pain Procedures: DATE PROCEDURE IMPROVEMENT None Current Medications, Past Medical History, Past Surgical History, Family History, Social History and Review of Systems: On today's date, noted above, I have confirmed and edited as necessary, the PFSH and ROS obtained by others. Physical Exam: 01/22/23 0853 Pulse: 65 Resp: 16 SpO2: 98% Constitutional:normal weight Eyes: Conjunctiva clear. No discharge from eyes Cardiovascular: Appears well perfused Lymphatic: No visible regional lymphadenopathy Skin: No visible rashes or ecchymosis Psychiatric: Full affect, Alert, Pleasant Neuro-Lower: Neural Tension Signs: Negative slump in Bilateral lower limbs Sensation: intact to light touch in the L2-S2 Bilateral lower limb tomas (more content not included)... [facility] 01-07-2023 Note HNO ID: [id number] Author: Lucinda Gallo Service: ? Author Type: Physician Type: Progress Notes Filed: 01/07/2023 8:22 AM Note Text: Last saw Dr. Warner; 11/07/22 Subjective: Patient presents to clinic c/o painful toenails. They state that the nails are especially painful with shoe gear and pressure. Patient states that nails 1-5 b/l are painful. Patient reports developing cellulitis of left 5th toe as a result of his toe rubbing in a loafer. He states he has been applying topical antibiotic and that has helped. Patient admits to being diabetic. No other pedal complaints at this time. Patient states no change in medications or medical history since last visit. Objective: Patient presents to clinic ambulating in [facility] Vasc: DP and PT pulses are palpable bilateral. CFT is less than 5 seconds bilateral. Skin temperature is warm to cool proximal to distal bilateral. There is no edema or varicosities noted. Neuro: Protective sensation is intact to the foot and toes when tested with the 5.07 SWM bilateral. Vibratory sensation is decreased at the hallux IPJ bilateral. The hallux is downgoing bilateral. Derm: Nails 1-5 b/l are painful, discolored-yellow, thick, crumbly, dystrophic and with subungal debris. Skin is of normal turgor, texture and hair growth is decreased bilateral. Healing abrasion without infection to left 5th toe. Small skin tag of right 4th toe. There are no hyperkeratosis, ulcerations, scars, verruca or other lesions noted. Ortho: Muscle strength is 5/5 for all pedal groups tested. Ankle joint DF is decreased with the knee extended with no pain or crepitus noted. 1st MPJ ROM is decreased bilateral. Assessment: (B35.1) Onychomycosis (primary encounter diagnosis) (M79.675) Pain in toe of left foot (M79.674) Pain in toe of right foot (E11.42) Diabetic polyneuropathy associated with type 2 diabetes mellitus (HCC) Plan: Patient was seen and evaluated. Nails 1-5 bilateral were debrided in length and thickness. Small bleed to left hallux and right 4th toe. Discussed wound of left 5th toe. It is essentially haled. Would continue with moisturizing lotion and wider shoes. Provided patient with gel toe pad. Offered baseline xrays but patient declined. Small skin tag in 4th toe debrided today with nail debridement. Band aide applied. If this continues, could consider total nail removal Patient was instructed on the continued importance of diabetic foot care along with proper diet and keeping their blood sugar under control to prevent complications. Patient is to RTC in 3-4 months. Lucinda Gallo DPM [facility] 01-07-2023 Note HNO ID: [id number] Author: Danny Forrester RN Service: ? Author Type: Registered Nurse Type: Progress Notes Filed: 01/07/2023 8:22 AM Note Text: Patient presents with: Left Foot - Established Patient, Follow Up, Diabetic Foot Care Right Foot - Established Patient, Follow Up, Diabetic Foot Care Patient presents for 3 month diabetic foot care. Denies any new pain or problems at this time. States that about a month or so ago he had hit his foot and the wound got red. Was put on Keflex and he states that the redness went away. Small scab still noted to Left 5th toe. [facility] 01-07-2023 History of Presen t illness Narrative Last saw Dr. Warner; 11/07/22 Subjective: Patient presents to clinic c/o painful toenails. They state that the nails are especially painful with shoe gear and pressure. Patient states that nails 1-5 b/l are painful. Patient reports developing cellulitis of left 5th toe as a result of his toe rubbing in a loafer. He states he has been applying topical antibiotic and that has helped. Patient admits to being diabetic. No other pedal complaints at this time. Patient states no change in medications or medical history since last visit. Objective: Patient presents to clinic ambulating in [facility] Vasc: DP and PT pulses are palpable bilateral. CFT is less than 5 seconds bilateral. Skin temperature is warm to cool proximal to distal bilateral. There is no edema or varicosities noted. Neuro: Protective sensation is intact to the foot and toes when tested with the 5.07 SWM bilateral. Vibratory sensation is decreased at the hallux IPJ bilateral. The hallux is downgoing bilateral. Derm: Nails 1-5 b/l are painful, discolored-yellow, thick, crumbly, dystrophic and with subungal debris. Skin is of normal turgor, texture and hair growth is decreased bilateral. Healing abrasion without infection to left 5th toe. Small skin tag of right 4th toe. There are no hyperkeratosis, ulcerations, scars, verruca or other lesions noted. Ortho: Muscle strength is 5/5 for all pedal groups tested. Ankle joint DF is decreased with the knee extended with no pain or crepitus noted. 1st MPJ ROM is decreased bilateral. Assessment: (B35.1) Onychomycosis (primary encounter diagnosis) (M79.675) Pain in toe of left foot (M79.674) Pain in toe of right foot (E11.42) Diabetic polyneuropathy associated with type 2 diabetes mellitus (HCC) Plan: Patient was seen and evaluated. Nails 1-5 bilateral were debrided in length and thickness. Small bleed to left hallux and right 4th toe. Discussed wound of left 5th toe. It is essentially haled. Would continue with moisturizing lotion and wider shoes. Provided patient with gel toe pad. Offered baseline xrays but patient declined. Small skin tag in 4th toe debrided today with nail debridement. Band aide applied. If this continues, could consider total nail removal Patient was instructed on the continued importance of diabetic foot care along with proper diet and keeping their blood sugar under control to prevent complications. Patient is to RTC in 3-4 months. Lucinda Gallo DPM Patient presents with: Left Foot - Established Patient, Follow Up, Diabetic Foot Care Right Foot - Established Patient, Follow Up, Diabetic Foot Care Patient presents for 3 month diabetic foot care. Denies any new pain or problems at this time. States that about a month or so ago he had hit his foot and the wound got red. Was put on Keflex and he states that the redness went away. Small scab still noted to Left 5th toe. documented in this encounter [facility] 01-07-2023 Instructions Lucinda Gallo - 01/07/2023 8:07 AM EDT Diabetes Foot Care Instructions When you have diabetes, proper foot care is very important. Poor foot care may lead to amputation of a foot or leg. As a person with diabetes, you are more vulnerable to foot problems, because diabetes can damage your nerves and reduce blood flow to your feet. Here are some diabetes foot care tips to follow: Wash and Dry Your Feet Daily Use mild soaps Use warm water Pat your skin dry; do not rub. Thoroughly dry your feet. After washing, use lotion on your feet to prevent cracking. Do not put lotion between your toes. Examine Your Feet Each Day Check the tops and bottoms of your feet. Have someone else look at your feet if you cannot see them. Check for dry, cracked skin. Look for blisters, cuts, scratches, or other sores. Check for redness, increased warmth, or tenderness when touching any area of your feet. Check for ingrown toenails, corns, and calluses. If you get a blister or sore from your shoes, do not pop it. Apply a bandage and wear a different pair of shoes. Take Care of Your Toenails Cut toenails after bathing, when they are soft. Cut toenails straight across and smooth with a nail file. Avoid cutting into the corners of toes. Do not cut cuticles. If you have neuropathy (or decreased sensation in your feet) a front office coordinator should always cut your toenails. Be Careful When Exercising Walk and exercise in comfortable shoes. Do not exercise when you have open sores on your feet. Protect Your Feet With Shoes and Socks Never go barefoot. Always protect your feet by wearing shoes or hard-soled slippers or footwear. Avoid shoes with high heels and pointed toes. Avoid shoes that expose your toes or heels (such as open-toed shoes or sandals). These types of shoes increase your risk for injury and potential infections. Try on new footwear with the type of socks you usually wear. Do not wear new shoes for more than an hour at a time. Change your socks daily. Look and feel inside your shoes before putting them on to make sure there are no foreign objects or rough areas. Avoid tight socks. Wear natural-fiber socks (cotton, wool, or a cotton-wool blend). Wear special shoes if your health care provider recommends them. Wear shoes/boots that will protect your feet from various weather conditions (cold, moisture, etc.). Make sure your shoes fit properly. If you have neuropathy (nerve damage), you may not notice that your shoes are too tight. Perform the footwear test described below. Footwear Test Use this simple test to see if your shoes fit correctly: Stand on a piece of paper. (Make sure you are standing and not sitting, because your foot changes shape when you stand.) Trace the outline of your foot. Trace the outline of your shoe. Compare the tracings: Is the shoe too narrow? Is your foot crammed into the shoe? The shoe should be at least 1/2 inch longer than your longest toe and as wide as your foot. Proper Shoe Choices The following types of shoes are best for people with diabetes Closed toes and heels Leather uppers without a seam inside At least 1/2 inch extra space at the end of your longest toe Inside of shoe should be soft with no rough areas Outer sole should be made of stiff material Shoes should be at least as wide as your feet Tips for Foot Care in Diabetes Don't wait to treat a minor foot problem if you have diabetes. Follow your health care provider's guidelines and first aid guidelines. Report foot injuries and infections to your health care provider immediately. Check water temperature with your elbow, not your foot. Do not use a heating pad on your feet. Do not cross your legs. Do not self-treat your corns, calluses, or other foot problems. Go to your health care provider or front office coordinator to treat these conditions. documented in this encounter [facility] 12-16-2022 Note HNO ID: [id number] Author: Monet Proctor APRN.[employer] Service: ? Author Type: Nurse Practitioner Type: Progress Notes Filed: 12/16/2022 12:51 PM Note Text: Subjective HPI Tanisha Salter is a 82 year old male who presents with left pinky toe redness and swelling for the past 4 days. He was wearing a different pair of shoes/slip ons and it rubbed on his toe. He has been cleaning it with peroxide and using neosporin. He has not had a fever or pain. He has a history of T2DM and sees Dr. Gallo for foot care. Review of Systems Constitutional: Negative for chills and fever. Musculoskeletal: Negative for falls and joint pain. See HPI Skin: Negative for itching and rash. BP 128/80 Pulse 78 Temp 36.1 ?C (96.9 ?F) Resp 16 Wt 90.7 kg (200 lb) SpO2 100% BMI 27.12 kg/m? PAST MEDICAL HISTORY Diagnosis Date BPH (benign prostatic hyperplasia) Diabetes mellitus, type 2 (HCC) Elevated prostate specific antigen (PSA) Hyperlipidemia Prostate cancer (HCC) Dr. [address] Spinal stenosis lumbar Testicular cancer (HCC) radiation- PAST SURGICAL HISTORY Procedure Laterality Date COLONOSCOPY 2011 normal HEMORRHOIDECTOMY 1960s ORCHIECTOMY SIMPLE Left 1982 testicular cancer, with radiation PAST SURGICAL HISTORY OF Left knee arthroscopy TONSILLECTOMY HX childhood TRANSURETHRAL ELEC-SURG PROSTATECTOM 06/25/2022 ALLERGIES Demerol [Meperidine], Sulfa (Sulfonamide Antibiotics), and Tetanus Toxoid MEDICATIONS metFORMIN (GLUCOPHAGE) 1,000 mg tablet Take 0.5 tablets by mouth once daily. tamsulosin (FLOMAX) 0.4 mg Take 2 capsules by mouth once daily. lisinopril (ZESTRIL, PRINIVIL) 5 mg tablet Take 1 tablet by mouth once daily. pravastatin (PRAVACHOL) 20 mg tablet Take 1 tablet by mouth once daily. finasteride (PROSCAR) 5 mg tablet Take 1 tablet by mouth once daily. meloxicam (MOBIC) 15 mg tablet Take 15 mg by mouth once daily. cephALEXin (KEFLEX) 500 mg capsule Take 1 capsule by mouth three times daily for 7 days. FAMILY HISTORY Problem Relation Age of Onset Alzheimer's Disease Mother Heart Mother Diabetes Father Heart Father Cancer Sister No Known Problems Brother No Known Problems Maternal Grandmother No Known Problems Maternal Grandfather Diabetes Paternal Grandmother No Known Problems Paternal Grandfather Social History Tobacco Use Smoking status: Former Packs/day: 1.50 Years: 20.00 Pack years: 30.00 Types: Cigarettes Quit date: 07/23/1990 Years since quittin.4 Smokeless tobacco: Never Vaping Use Vaping Use: Never used Substance Use Topics Alcohol use: Yes Comment: rarely Drug use: No Objective Physical Exam Vitals and nursing note reviewed. Constitutional: General: He is not in acute distress. Appearance: Normal appearance. He is not ill-appearing. Musculoskeletal: General: Swelling and signs of injury present. No tenderness. Feet: Feet: Left foot: Skin integrity: Blister, skin breakdown, erythema, warmth and dry skin present. No ulcer. Toenail Condition: Left toenails are abnormally thick. Skin: General: Skin is warm and dry. Capillary Refill: Capillary refill takes less than 2 seconds. Findings: Erythema present. No bruising or rash. Neurological: Mental Status: He is alert. ASSESSMENT/PLAN: 1. Cellulitis of left toe - ICD9: 681.10, ICD10: L03.032 - Begin treatment with Cephalaxin (Keflex) - warm water with epsom salt soaks 2-3 times daily. - do not use hydrogen peroxide. Continue to use neosporin. - CEPHALEXIN 500 MG CAPSULE - Follow-up with your PCP in 3-5 days if symptoms have not improved or sooner if symptoms worsen - Discussed red flags and need for immediate medical evaluation if any occur. - Discussed supportive care treatment with fluids, rest and analgesia. - Discussed expected course of illness Monet Proctor APRN.[facility] 12-16-2022 History of Presen t illness Narrative Images from the original note were not included. Subjective HPI Tanisha Salter is a 82 year old male who presents with left pinky toe redness and swelling for the past 4 days. He was wearing a different pair of shoes/slip ons and it rubbed on his toe. He has been cleaning it with peroxide and using neosporin. He has not had a fever or pain. He has a history of T2DM and sees Dr. Gallo for foot care. Review of Systems Constitutional: Negative for chills and fever. Musculoskeletal: Negative for falls and joint pain. See HPI Skin: Negative for itching and rash. BP 128/80 Pulse 78 Temp 36.1 C (96.9 F) Resp 16 Wt 90.7 kg (200 lb) SpO2 100% BMI 27.12 kg/m PAST MEDICAL HISTORY Diagnosis Date BPH (benign prostatic hyperplasia) Diabetes mellitus, type 2 (HCC) Elevated prostate specific antigen (PSA) Hyperlipidemia Prostate cancer (HCC) Dr. [address] Spinal stenosis lumbar Testicular cancer (HCC) radiation- PAST SURGICAL HISTORY Procedure Laterality Date COLONOSCOPY 2011 normal HEMORRHOIDECTOMY 1960s ORCHIECTOMY SIMPLE Left 1982 testicular cancer, with radiation PAST SURGICAL HISTORY OF Left knee arthroscopy TONSILLECTOMY HX childhood TRANSURETHRAL ELEC-SURG PROSTATECTOM 06/25/2022 ALLERGIES Demerol [Meperidine], Sulfa (Sulfonamide Antibiotics), and Tetanus Toxoid MEDICATIONS metFORMIN (GLUCOPHAGE) 1,000 mg tablet Take 0.5 tablets by mouth once daily. tamsulosin (FLOMAX) 0.4 mg Take 2 capsules by mouth once daily. lisinopril (ZESTRIL, PRINIVIL) 5 mg tablet Take 1 tablet by mouth once daily. pravastatin (PRAVACHOL) 20 mg tablet Take 1 tablet by mouth once daily. finasteride (PROSCAR) 5 mg tablet Take 1 tablet by mouth once daily. meloxicam (MOBIC) 15 mg tablet Take 15 mg by mouth once daily. cephALEXin (KEFLEX) 500 mg capsule Take 1 capsule by mouth three times daily for 7 days. FAMILY HISTORY Problem Relation Age of Onset Alzheimer's Disease Mother Heart Mother Diabetes Father Heart Father Cancer Sister No Known Problems Brother No Known Problems Maternal Grandmother No Known Problems Maternal Grandfather Diabetes Paternal Grandmother No Known Problems Paternal Grandfather Social History Tobacco Use Smoking status: Former Packs/day: 1.50 Years: 20.00 Pack years: 30.00 Types: Cigarettes Quit date: 07/23/1990 Years since quittin.4 Smokeless tobacco: Never Vaping Use Vaping Use: Never used Substance Use Topics Alcohol use: Yes Comment: rarely Drug use: No Objective Physical Exam Vitals and nursing note reviewed. Constitutional: General: He is not in acute distress. Appearance: Normal appearance. He is not ill-appearing. Musculoskeletal: General: Swelling and signs of injury present. No tenderness. Feet: Feet: Left foot: Skin integrity: Blister, skin breakdown, erythema, warmth and dry skin present. No ulcer. Toenail Condition: Left toenails are abnormally thick. Skin: General: Skin is warm and dry. Capillary Refill: Capillary refill takes less than 2 seconds. Findings: Erythema present. No bruising or rash. Neurological: Mental Status: He is alert. ASSESSMENT/PLAN: 1. Cellulitis of left toe - ICD9: 681.10, ICD10: L03.032 - Begin treatment with Cephalaxin (Keflex) - warm water with epsom salt soaks 2-3 times daily. - do not use hydrogen peroxide. Continue to use neosporin. - CEPHALEXIN 500 MG CAPSULE - Follow-up with your PCP in 3-5 days if symptoms have not improved or sooner if symptoms worsen - Discussed red flags and need for immediate medical evaluation if any occur. - Discussed supportive care treatment with fluids, rest and analgesia. - Discussed expected course of illness Monet Proctor APRN.CNP documented in this encounter [facility] 12-16-2022 Instructions Monet Proctor APRN.CNP - 12/16/2022 12:38 PM EDT ASSESSMENT/PLAN: 1. Cellulitis of left toe - ICD9: 681.10, ICD10: L03.032 - Begin treatment with Cephalaxin (Keflex) - warm water with epsom salt soaks 2-3 times daily. - do not use hydrogen peroxide. Continue to use neosporin. - CEPHALEXIN 500 MG CAPSULE - Follow-up with your PCP in 3-5 days if symptoms have not improved or sooner if symptoms worsen - Discussed red flags and need for immediate medical evaluation if any occur. - Discussed supportive care treatment with fluids, rest and analgesia. - Discussed expected course of illness Monet Proctor APRN.CNP [facility] PATIENT INFO SKIN INFECTION OVERVIEW Cellulitis is an infection of the skin and soft tissue of the skin. The infection is usually caused by bacteria that normally live on the skin, such as staphylococci ( Staph ) or streptococci ( Strep ). The infection develops when there is a break in the skin, such as a wound or injury, which may be minor. This allows bacteria to enter the skin and grow, causing infection and swelling. Most cases of cellulitis are mild and heal completely with antibiotic treatment. However, the infection can become severe and cause a bodywide infection if left untreated. It is important to seek medical care promptly if you could have a skin infection. SKIN INFECTION RISK FACTORS Certain conditions increase the risk of developing cellulitis. These include: Recent injury to the skin (a wound, abrasion, cut, recent shaving, or injection drug use) Swelling of the skin due to radiation therapy Current skin infection, such as athlete's foot or impetigo Accumulation of fluid (edema) due to poor circulation, heart failure, liver disease, or past surgery to remove lymph nodes Being overweight Chronic skin conditions, such as eczema or psoriasis However, cellulitis can also develop in people who have no known risk factors. SKIN INFECTION SYMPTOMS Cellulitis -- The most common symptom of cellulitis is pain or tenderness. Other cellulitis symptoms can include swelling, warmth, and redness in a distinct area of skin. These symptoms usually worsen and the redness may expand over the course of a few days. The skin is usually smooth and shiny rather than raised or bumpy. Fever and chills are not common. The most common areas of the body for cellulitis to develop include the legs and the arms; it can also develop around the eye, on the abdominal wall, in the mouth, and around the anus. Other skin infections -- Other types of skin infections include abscesses, furuncles ( boils ), and carbuncles. These usually cause a collection of pus under the skin. Skin that is raised, reddened, tender, and pus-filled may be caused by a skin infection known as methicillin-resistant Staphylococcus aureus (MRSA). DO I NEED TO BE EXAMINED? There are many types and causes of skin infections, and it is important to know the most likely cause of the infection before beginning treatment. Using the wrong treatment could allow the infection to worsen. To ensure that the correct treatment is used, it is important to be evaluated by a healthcare provider. SKIN INFECTION TREATMENT Cellulitis treatment includes antibiotics as well as treatment of any underlying condition that led to the skin infection. Elevate the area -- Elevating the arm or leg above the level of the heart can help to reduce swelling and speed healing. Keep the area clean and dry -- It is important to keep the infected area clean and dry. You can shower or bathe normally, and pat the area dry with a clean towel. You can use a bandage or gauze to protect the skin, if needed. Do not use any antibiotic ointments or creams. Antibiotics -- Most people with cellulitis are treated with an antibiotic that is taken by mouth for one to two weeks. The best antibiotic depends upon your situation. If the infection is severe, you may need to be hospitalized and treated with antibiotics given into a vein (IV). It is important to take the antibiotic exactly as recommended and to finish the entire course of treatment. Skipping doses or ending treatment early could potentially allow the bacteria to become resistant and require longer treatment. Time to heal -- The swelling, warmth, and redness should begin to improve within one to three days after starting antibiotics, although these symptoms can persist for two weeks. If the reddened area becomes larger, more swollen, or more tender, call your healthcare provider. He or she may want to reexamine you to determine if further testing or an alternate antibiotic are needed. SKIN INFECTION PROGNOSIS In most cases, you will recover completely from an episode of cellulitis without any complications. If you have skin infection risk factors talk to your healthcare provider to determine if there are steps you can take to minimize the risk of infections in the future. documented in this encounter [facility] 11-07-2022 Note HNO ID: [id number] Author: Yolande Warner MD Service: ? Author Type: Physician Type: Progress Notes Filed: 11/07/2022 10:13 AM Note Text: Chief Complaint Patient presents with: Back Pain: Spinal stenosis HPI Tanisha Salter is a 82 year old male who presents here today for Evaluation of chronic lower back pain and spinal stenosis. Patient requested handicap placard at [facility] 2 weeks ago for his chronic lower back pain and spinal stenosis because of worsening pain. Complaining of daily intermittent bilateral lower back pain which radiates down both legs to his ankle. Does not have pain with rest or when seated. Exacerbated with standing long periods, bending, vacuuming, walking long distances. Not taking anything OTC for his pain. Not treating with ice/heat, home exercises. Did go through PT back 10/2021 and states this did not help. Denies loss of bowel/bladder control, saddle anesthesia, LE weakness. Interested in getting ADRIANO. Past medical history, appointments, medications, allergies reviewed. Previous Medical History PAST MEDICAL HISTORY Diagnosis Date BPH (benign prostatic hyperplasia) Diabetes mellitus, type 2 (HCC) Elevated prostate specific antigen (PSA) Hyperlipidemia Prostate cancer (HCC) Dr. [address] Spinal stenosis lumbar Testicular cancer (HCC) radiation- Previous Surgical History PAST SURGICAL HISTORY Procedure Laterality Date COLONOSCOPY 2011 normal HEMORRHOIDECTOMY 1960s ORCHIECTOMY SIMPLE Left 1983 testicular cancer, with radiation PAST SURGICAL HISTORY OF Left knee arthroscopy TONSILLECTOMY HX childhood TRANSURETHRAL ELEC-SURG PROSTATECTOM 06/25/2022 Family History FAMILY HISTORY Problem Relation Age of Onset Alzheimer's Disease Mother Heart Mother Diabetes Father Heart Father Cancer Sister No Known Problems Brother No Known Problems Maternal Grandmother No Known Problems Maternal Grandfather Diabetes Paternal Grandmother No Known Problems Paternal Grandfather Patient Allergies ALLERGIES Allergen Reactions Demerol [Meperidine] Vomiting Sulfa (Sulfonamide * Unknown Elevated temperature Tetanus Toxoid Hives Current Medications Current Outpatient Medications on File Prior to Visit Medication Sig metFORMIN (GLUCOPHAGE) 1,000 mg tablet Take 0.5 tablets by mouth once daily. tamsulosin (FLOMAX) 0.4 mg Take 2 capsules by mouth once daily. lisinopril (ZESTRIL, PRINIVIL) 5 mg tablet Take 1 tablet by mouth once daily. pravastatin (PRAVACHOL) 20 mg tablet Take 1 tablet by mouth once daily. finasteride (PROSCAR) 5 mg tablet Take 1 tablet by mouth once daily. No current facility-administered medications on file prior to visit. Social History Social History Tobacco Use Smoking status: Former Packs/day: 1.50 Years: 20.00 Pack years: 30.00 Types: Cigarettes Quit date: 07/23/1990 Years since quittin.3 Smokeless tobacco: Never Vaping Use Vaping Use: Never used Substance Use Topics Alcohol use: Yes Comment: rarely Drug use: No Review of Symptoms REVIEW OF SYSTEMS See HPI EXAM: BP 106/64 Pulse 69 Resp 16 Wt 87.3 kg (192 lb 6.4 oz) SpO2 94% BMI 26.09 kg/m? General Appearance: Well appearing, alert, in no acute distress, well-hydrated, well nourished.. Back:no pain to palpation of vertebrae, good flexion and extension, good range of motion, no muscle tenderness, reflexes are 2+ and symmetric, motor and sensory appear to be normal, negative SLR test, no evidence of scoliosis Health Maintenance List ADVANCE DIRECTIVE DISCUSSION Never done DEPRESSION ASSESSMENT Never done DILATED RETINAL EXAM due on 01/23/2023 DIABETIC FOOT EXAM due on 03/27/2023 URINE ALBUMIN:CREATININE RATIO due on 04/22/2023 LDL CHOLESTEROL due on 04/22/2023 HBA1C due on 04/22/2023 INFLUENZA Completed SHINGRIX VACCINE Completed COVID-19 VACCINE Completed PNEUMOCOCCAL: 65+ Completed DTAP,TDAP,TD Discontinued Data reviewed Component Latest Ref Rng AND Units 10/23/2022 Protein, Total 6.3 - 8.0 g/dL 7.1 Albumin 3.9 - 4.9 g/dL 4.1 Calcium 8.5 - 10.2 mg/dL 10.0 Bilirubin, Total 0.2 - 1.3 mg/dL 0.3 Alkaline Phosphatase 38 - 113 U/L 50 AST 14 - 40 U/L 16 ALT 10 - 54 U/L 11 Glucose 74 - 99 mg/dL 111 (H) BUN 9 - 24 mg/dL 12 Creatinine 0.73 - 1.22 mg/dL 0.95 Sodium 136 - 144 mmol/L 139 Potassium 3.7 - 5.1 mmol/L 4.6 Chloride 97 - 105 mmol/L 101 CO2 22 - 30 mmol/L 28 Anion Gap 9 - 18 mmol/L 10 eGFR >=60 mL/min/1.73mA? 80 Hemoglobin A1C 4.3 - 5.6 % 6.3 (H) Estimated Average Glucose mg/dL 134 ASSESSMENT/PLAN: 1. Chronic low back pain without sciatica, unspecified back pain laterality - ICD9: 724.2, 338.29, ICD10: M54.50, G89.29 (primary diagnosis) Normal exam today without signs of worsening spinal stenosis. Will refer to pain management to discuss ADRIANO. Start NSAID PRN and discussed ice/heat, home exercises, and rest as needed. Red flags (more content not included)... [facility] 11-07-2022 History of Presen t illness Narrative Chief Complaint Patient presents with: Back Pain: Spinal stenosis HPI Tanisha Salter is a 82 year old male who presents here today for Evaluation of chronic lower back pain and spinal stenosis. Patient requested handicap placalicia at [facility] 2 weeks ago for his chronic lower back pain and spinal stenosis because of worsening pain. Complaining of daily intermittent bilateral lower back pain which radiates down both legs to his ankle. Does not have pain with rest or when seated. Exacerbated with standing long periods, bending, vacuuming, walking long distances. Not taking anything OTC for his pain. Not treating with ice/heat, home exercises. Did go through PT back 10/2021 and states this did not help. Denies loss of bowel/bladder control, saddle anesthesia, LE weakness. Interested in getting ADRIANO. Past medical history, appointments, medications, allergies reviewed. Previous Medical History PAST MEDICAL HISTORY Diagnosis Date BPH (benign prostatic hyperplasia) Diabetes mellitus, type 2 (HCC) Elevated prostate specific antigen (PSA) Hyperlipidemia Prostate cancer (HCC) Dr. Art, [address] Spinal stenosis lumbar Testicular cancer (HCC) radiation- Previous Surgical History PAST SURGICAL HISTORY Procedure Laterality Date COLONOSCOPY 2011 normal HEMORRHOIDECTOMY 1960s ORCHIECTOMY SIMPLE Left 1983 testicular cancer, with radiation PAST SURGICAL HISTORY OF Left knee arthroscopy TONSILLECTOMY HX childhood TRANSURETHRAL ELEC-SURG PROSTATECTOM 06/25/2022 Family History FAMILY HISTORY Problem Relation Age of Onset Alzheimer's Disease Mother Heart Mother Diabetes Father Heart Father Cancer Sister No Known Problems Brother No Known Problems Maternal Grandmother No Known Problems Maternal Grandfather Diabetes Paternal Grandmother No Known Problems Paternal Grandfather Patient Allergies ALLERGIES Allergen Reactions Demerol [Meperidine] Vomiting Sulfa (Sulfonamide * Unknown Elevated temperature Tetanus Toxoid Hives Current Medications Current Outpatient Medications on File Prior to Visit Medication Sig metFORMIN (GLUCOPHAGE) 1,000 mg tablet Take 0.5 tablets by mouth once daily. tamsulosin (FLOMAX) 0.4 mg Take 2 capsules by mouth once daily. lisinopril (ZESTRIL, PRINIVIL) 5 mg tablet Take 1 tablet by mouth once daily. pravastatin (PRAVACHOL) 20 mg tablet Take 1 tablet by mouth once daily. finasteride (PROSCAR) 5 mg tablet Take 1 tablet by mouth once daily. No current facility-administered medications on file prior to visit. Social History Social History Tobacco Use Smoking status: Former Packs/day: 1.50 Years: 20.00 Pack years: 30.00 Types: Cigarettes Quit date: 07/23/1990 Years since quittin.3 Smokeless tobacco: Never Vaping Use Vaping Use: Never used Substance Use Topics Alcohol use: Yes Comment: rarely Drug use: No Review of Symptoms REVIEW OF SYSTEMS See HPI EXAM: BP 106/64 Pulse 69 Resp 16 Wt 87.3 kg (192 lb 6.4 oz) SpO2 94% BMI 26.09 kg/m General Appearance: Well appearing, alert, in no acute distress, well-hydrated, well nourished.. Back:no pain to palpation of vertebrae, good flexion and extension, good range of motion, no muscle tenderness, reflexes are 2+ and symmetric, motor and sensory appear to be normal, negative SLR test, no evidence of scoliosis Health Maintenance List ADVANCE DIRECTIVE DISCUSSION Never done DEPRESSION ASSESSMENT Never done DILATED RETINAL EXAM due on 01/23/2023 DIABETIC FOOT EXAM due on 03/27/2023 URINE ALBUMIN:CREATININE RATIO due on 04/22/2023 LDL CHOLESTEROL due on 04/22/2023 HBA1C due on 04/22/2023 INFLUENZA Completed SHINGRIX VACCINE Completed COVID-19 VACCINE Completed PNEUMOCOCCAL: 65+ Completed DTAP,TDAP,TD Discontinued Data reviewed Component Latest Ref Rng & Units 10/23/2022 Protein, Total 6.3 - 8.0 g/dL 7.1 Albumin 3.9 - 4.9 g/dL 4.1 Calcium 8.5 - 10.2 mg/dL 10.0 Bilirubin, Total 0.2 - 1.3 mg/dL 0.3 Alkaline Phosphatase 38 - 113 U/L 50 AST 14 - 40 U/L 16 ALT 10 - 54 U/L 11 Glucose 74 - 99 mg/dL 111 (H) BUN 9 - 24 mg/dL 12 Creatinine 0.73 - 1.22 mg/dL 0.95 Sodium 136 - 144 mmol/L 139 Potassium 3.7 - 5.1 mmol/L 4.6 Chloride 97 - 105 mmol/L 101 CO2 22 - 30 mmol/L 28 Anion Gap 9 - 18 mmol/L 10 eGFR >=60 mL/min/1.73m 80 Hemoglobin A1C 4.3 - 5.6 % 6.3 (H) Estimated Average Glucose mg/dL 134 ASSESSMENT/PLAN: 1. Chronic low back pain without sciatica, unspecified back pain laterality - ICD9: 724.2, 338.29, ICD10: M54.50, G89.29 (primary diagnosis) Normal exam today without signs of worsening spinal stenosis. Will refer to pain management to discuss ADRIANO. Start NSAID PRN and discussed ice/heat, home exercises, and rest as needed. Red flags for re-assessment reviewed with patient in detail. - MELOXICAM 15 MG TABLET - CONSULT TO PAIN MGT 2. Spinal stenosis of lumbar region without neurogenic claudication - ICD9: 724.02, ICD10: M48.061 - MELOXICAM 15 MG TABLET - CONSULT TO PAIN MGT Yolande Warner MD documented in this encounter [facility] 10-24-2022 Note HNO ID: [id number] Author: Yolande Warner MD Service: ? Author Type: Physician Type: Progress Notes Filed: 10/25/2022 11:51 AM Note Text: Chief Complaint Patient presents with: Follow Up: 6 month- patient reports pain that radiates down back into legs that's been going on for years. HPI Tanisha Salter is a 82 year old male who presents here today for 6 month follow up. DIABETES MELLITUS: Mr. Salter was last seen 6 months ago. Since our last visit he denies excessive thirst or increased frequency of urination, numbness, tingling or pain in extremities, new or unusual visual symptoms, and low sugar/hypoglycemic reactions. Follows a diabetic diet some of the time. He is compliant with medication(s) and is tolerating med(s) without any side effects. He reports checking his glucose on a infrequent to not at all basis. Patient's last HgA1C was Hemoglobin A1C (%) Date Value 10/23/2022 6.3 04/22/2022 6.4 10/18/2021 6.3 04/17/2021 6.4 ) Last Ophthalmology exam was within the past 12 months Last Podiatry exam was within the past 12 months Prostate cancer: managed by Dr. You-oncology. Last OV 10 days ago. Completed radiation therapy. No longer on Eligard. Urinary obstruction resolved. Urinating 15 times per day but is doing well on Flomax and Proscar. Recommending f/u and PSA in 3 months. PSA on 08/2022 <0.01. History of spinal stenosis and states that he is still having trouble with lower back pain, walking long distances, standing over the sink. Similar symptoms in 2019. Denies loss of bowel/bladder control, saddle anesthesia, LE weakness. States he has hard time with MRI's due to tight spaces. Taking statin as prescribed without side effects. Past medical history, appointments, medications, allergies reviewed. Previous Medical History PAST MEDICAL HISTORY Diagnosis Date BPH (benign prostatic hyperplasia) Diabetes mellitus, type 2 (HCC) Elevated prostate specific antigen (PSA) Hyperlipidemia Prostate cancer (HCC) [facility] Spinal stenosis lumbar Testicular cancer (HCC) radiation- 1980s Previous Surgical History PAST SURGICAL HISTORY Procedure Laterality Date COLONOSCOPY 2012 normal HEMORRHOIDECTOMY 1960s ORCHIECTOMY SIMPLE Left 1983 testicular cancer, with radiation PAST SURGICAL HISTORY OF Left knee arthroscopy TONSILLECTOMY HX childhood TRANSURETHRAL ELEC-SURG PROSTATECTOM 06/25/2022 Family History FAMILY HISTORY Problem Relation Age of Onset Alzheimer's Disease Mother Heart Mother Diabetes Father Heart Father Cancer Sister No Known Problems Brother No Known Problems Maternal Grandmother No Known Problems Maternal Grandfather Diabetes Paternal Grandmother No Known Problems Paternal Grandfather Patient Allergies ALLERGIES Allergen Reactions Demerol [Meperidine] Vomiting Sulfa (Sulfonamide * Unknown Elevated temperature Tetanus Toxoid Hives Current Medications Current Outpatient Medications on File Prior to Visit Medication Sig finasteride (PROSCAR) 5 mg tablet Take 1 tablet by mouth once daily. pravastatin (PRAVACHOL) 20 mg tablet Take 1 tablet by mouth once daily. leuprolide (ELIGARD) 22.5 mg syrg subcutaneous syringe Inject 22.5 mg subcutaneously every 3 months. (Patient not taking: Reported on 10/08/2022) tamsulosin (FLOMAX) 0.4 mg Take 2 capsules by mouth once daily. metFORMIN (GLUCOPHAGE) 1,000 mg tablet Take 0.5 tablets by mouth once daily. No current facility-administered medications on file prior to visit. Social History Social History Tobacco Use Smoking status: Former Packs/day: 1.50 Years: 20.00 Pack years: 30.00 Types: Cigarettes Quit date: 07/23/1990 Years since quittin.2 Smokeless tobacco: Never Vaping Use Vaping Use: Never used Substance Use Topics Alcohol use: Yes Comment: rarely Drug use: No Review of Symptoms REVIEW OF SYSTEMS GENERAL: No weight loss, malaise or fevers RESPIRATORY: Negative for cough, hemoptysis, wheezing, COPD, dyspnea or shortness of breath CARDIOVASCULAR: Negative for chest pain, leg swelling, hypertension, CHF or palpitations GI: No nausea, vomiting, or diarrhea SKIN: Negative for lesions, rash, and itching EXAM: BP 122/64 Pulse 69 Resp 16 Wt 85.8 kg (189 lb 3.2 oz) SpO2 99% BMI 25.66 kg/m? General Appearance: Well appearing, alert, in no acute distress, well-hydrated, well nourished.. Skin: Skin color, texture, turgor normal, no suspicious rashes or lesions. Lungs: Lungs clear to auscultation. No wheezing, rhonchi, rales.. Heart: RRR without murmur, gallop, or rubs. No ectopy. Abdomen: Normal abdominal exam, Abdomen soft, non-tender. Bowel sounds normal. No masses, organomegaly. Extremities: No deformities, edema, skin discoloration, clubbing or cyanosis. Good capillary refill. . Health Maintenance List ADVANCE DIRECTIVE DISCUSSION Never done DEPRESSION ASSESSMENT Jimmie (more content not included)... [facility] 10-24-2022 History of Presen t illness Narrative Chief Complaint Patient presents with: Follow Up: 6 month- patient reports pain that radiates down back into legs that's been going on for years. HPI Tanisha Salter is a 82 year old male who presents here today for 6 month follow up. DIABETES MELLITUS: Mr. Salter was last seen 6 months ago. Since our last visit he denies excessive thirst or increased frequency of urination, numbness, tingling or pain in extremities, new or unusual visual symptoms, and low sugar/hypoglycemic reactions. Follows a diabetic diet some of the time. He is compliant with medication(s) and is tolerating med(s) without any side effects. He reports checking his glucose on a infrequent to not at all basis. Patient's last HgA1C was Hemoglobin A1C (%) Date Value 10/23/2022 6.3 04/22/2022 6.4 10/18/2021 6.3 04/17/2021 6.4 ) Last Ophthalmology exam was within the past 12 months Last Podiatry exam was within the past 12 months Prostate cancer: managed by Dr. You-oncology. Last OV 10 days ago. Completed radiation therapy. No longer on Eligard. Urinary obstruction resolved. Urinating 15 times per day but is doing well on Flomax and Proscar. Recommending f/u and PSA in 3 months. PSA on 08/2022 <0.01. History of spinal stenosis and states that he is still having trouble with lower back pain, walking long distances, standing over the sink. Similar symptoms in 2019. Denies loss of bowel/bladder control, saddle anesthesia, LE weakness. States he has hard time with MRI's due to tight spaces. Taking statin as prescribed without side effects. Past medical history, appointments, medications, allergies reviewed. Previous Medical History PAST MEDICAL HISTORY Diagnosis Date BPH (benign prostatic hyperplasia) Diabetes mellitus, type 2 (HCC) Elevated prostate specific antigen (PSA) Hyperlipidemia Prostate cancer (HCC) Dr. Art, [address] Spinal stenosis lumbar Testicular cancer (HCC) radiation- Previous Surgical History PAST SURGICAL HISTORY Procedure Laterality Date COLONOSCOPY 2011 normal HEMORRHOIDECTOMY 1960s ORCHIECTOMY SIMPLE Left 1983 testicular cancer, with radiation PAST SURGICAL HISTORY OF Left knee arthroscopy TONSILLECTOMY HX childhood TRANSURETHRAL ELEC-SURG PROSTATECTOM 06/25/2022 Family History FAMILY HISTORY Problem Relation Age of Onset Alzheimer's Disease Mother Heart Mother Diabetes Father Heart Father Cancer Sister No Known Problems Brother No Known Problems Maternal Grandmother No Known Problems Maternal Grandfather Diabetes Paternal Grandmother No Known Problems Paternal Grandfather Patient Allergies ALLERGIES Allergen Reactions Demerol [Meperidine] Vomiting Sulfa (Sulfonamide * Unknown Elevated temperature Tetanus Toxoid Hives Current Medications Current Outpatient Medications on File Prior to Visit Medication Sig finasteride (PROSCAR) 5 mg tablet Take 1 tablet by mouth once daily. pravastatin (PRAVACHOL) 20 mg tablet Take 1 tablet by mouth once daily. leuprolide (ELIGARD) 22.5 mg syrg subcutaneous syringe Inject 22.5 mg subcutaneously every 3 months. (Patient not taking: Reported on 10/08/2022) tamsulosin (FLOMAX) 0.4 mg Take 2 capsules by mouth once daily. metFORMIN (GLUCOPHAGE) 1,000 mg tablet Take 0.5 tablets by mouth once daily. No current facility-administered medications on file prior to visit. Social History Social History Tobacco Use Smoking status: Former Packs/day: 1.50 Years: 20.00 Pack years: 30.00 Types: Cigarettes Quit date: 07/23/1990 Years since quittin.2 Smokeless tobacco: Never Vaping Use Vaping Use: Never used Substance Use Topics Alcohol use: Yes Comment: rarely Drug use: No Review of Symptoms REVIEW OF SYSTEMS GENERAL: No weight loss, malaise or fevers RESPIRATORY: Negative for cough, hemoptysis, wheezing, COPD, dyspnea or shortness of breath CARDIOVASCULAR: Negative for chest pain, leg swelling, hypertension, CHF or palpitations GI: No nausea, vomiting, or diarrhea SKIN: Negative for lesions, rash, and itching EXAM: BP 122/64 Pulse 69 Resp 16 Wt 85.8 kg (189 lb 3.2 oz) SpO2 99% BMI 25.66 kg/m General Appearance: Well appearing, alert, in no acute distress, well-hydrated, well nourished.. Skin: Skin color, texture, turgor normal, no suspicious rashes or lesions. Lungs: Lungs clear to auscultation. No wheezing, rhonchi, rales.. Heart: RRR without murmur, gallop, or rubs. No ectopy. Abdomen: Normal abdominal exam, Abdomen soft, non-tender. Bowel sounds normal. No masses, organomegaly. Extremities: No deformities, edema, skin discoloration, clubbing or cyanosis. Good capillary refill. . Health Maintenance List ADVANCE DIRECTIVE DISCUSSION Never done DEPRESSION ASSESSMENT Never done DILATED RETINAL EXAM due on 01/23/2023 DIABETIC FOOT EXAM due on 03/27/2023 URINE ALBUMIN:CREATININE RATIO due on 04/22/2023 LDL CHOLESTEROL due on 04/22/2023 HBA1C due on 04/22/2023 INFLUENZA Completed SHINGRIX VACCINE Completed COVID-19 VACCINE Completed PNEUMOCOCCAL: 65+ Completed DTAP,TDAP,TD Discontinued Data reviewed Component Latest Ref Rng & Units 04/22/2022 10/23/2022 Protein, Total 6.3 - 8.0 g/dL 7.1 7.1 Albumin 3.9 - 4.9 g/dL 4.4 4.1 Calcium 8.5 - 10.2 mg/dL 10.0 10.0 Bilirubin, Total 0.2 - 1.3 mg/dL 0.4 0.3 Alkaline Phosphatase 38 - 113 U/L 57 50 AST 14 - 40 U/L 17 16 ALT 10 - 54 U/L 17 11 Glucose 74 - 99 mg/dL 119 (H) 111 (H) BUN 9 - 24 mg/dL 15 12 Creatinine 0.73 - 1.22 mg/dL 1.03 0.95 Sodium 136 - 144 mmol/L 136 139 Potassium 3.7 - 5.1 mmol/L 4.7 4.6 Chloride 97 - 105 mmol/L 100 101 CO2 22 - 30 mmol/L 24 28 Anion Gap 9 - 18 mmol/L 12 10 eGFR >=60 mL/min/1.73m 73 80 Total Cholesterol, Nonfasting <200 mg/dL 131 Triglycerides, Nonfasting <150 mg/dL 111 HDL Cholesterol, Nonfasting >39 mg/dL 46 LDL Cholesterol, Nonfasting <100 mg/dL 63 Non HDL Cholesterol, Nonfasting <130 mg/dL 85 VLDL Cholesterol, Nonfasting <30 mg/dL 22 Total Chol/HDL Ratio, Nonfasting <5.10 mg/dL 2.85 LDL/HDL Ratio, Nonfasting <2.54 mg/dL 1.37 Creatinine, Ur Random (UCRR) 20.0 - 300.0 mg/dL 94.0 Albumin, Urine Random mg/L 13.3 Albumin/Creat Ratio <30 mg/g 14 Hemoglobin A1C 4.3 - 5.6 % 6.4 (H) 6.3 (H) Estimated Average Glucose mg/dL 137 134 ASSESSMENT/PLAN: 1. Type 2 diabetes mellitus without complication, without long-term current use of insulin ([facility]) - ICD9: 250.00, ICD10: E11.9 (primary diagnosis) Controlled. - Continue current medications - Blood glucose monitoring on a once a day schedule - Encouraged regular aerobic exercise and weight loss - Follow up in 6 months, sooner should any other issues arise. 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 - METFORMIN 1,000 MG TABLET 2. Hyperlipidemia, unspecified hyperlipidemia type - ICD9: 272.4, ICD10: E78.5 - good control - Continue current medication. - Encouraged following a low fat, low cholesterol diet. - Discussed the benefits of regular aerobic exercise and weight loss. - METFORMIN 1,000 MG TABLET - TAMSULOSIN 0.4 MG CAPSULE 3. Prostate cancer (HCC) - ICD9: 185, ICD10: C61 Symptoms stable. Recommendations per urology/oncology. 4. Elevated PSA - ICD9: 790.93, ICD10: R97.20 Resolved. Will monitor for recurrence. - TAMSULOSIN 0.4 MG CAPSULE 5. Benign prostatic hyperplasia with nocturia - ICD9: 600.01, 788.43, ICD10: N40.1, R35.1 Stable. Continue current regimen. - METFORMIN 1,000 MG TABLET - TAMSULOSIN 0.4 MG CAPSULE 6. Spinal stenosis of lumbar region without neurogenic claudication - ICD9: 724.02, ICD10: M48.061 Given rx for handicap placard. Denies red flag symptoms today such as loss of bowel/bladder control and saddle anesthesia. F/u in a couple weeks to discuss further. - PARKING FOR HANDICAPPED 7. Chronic low back pain without sciatica, unspecified back pain laterality - ICD9: 724.2, 338.29, ICD10: M54.50, G89.29 See above. Recommend OTC analgesics, ice/heat for pain. Yolande Warner MD documented in this encounter [facility] 10-20-2022 Miscellaneous Notes Patient phones requesting refills as follows: Requested Prescriptions Pending Prescriptions Disp Refills finasteride (PROSCAR) 5 mg tablet 90 tablet 3 Sig: Take 1 tablet by mouth once daily. RAFAEL 07/10/22 NOV 10/24/22 Please review and advise. Erika Hernandez LPN documented in this encounter [facility] 10-08-2022 Note HNO ID: [id number] Author: Lucinda Gallo Service: ? Author Type: Physician Type: Progress Notes Filed: 10/08/2022 8:20 AM Note Text: Last saw Dr. Warner: 07/10/22 Subjective: Patient presents to clinic c/o painful toenails. They state that the nails are especially painful with shoe gear and pressure. Patient states that nails 1-5 b/l are painful. Patient admits to being diabetic. No other pedal complaints at this time. Patient states no change in medications or medical history since last visit. Objective: Patient presents to clinic ambulating in sneakers Vasc: DP and PT pulses are decreased bilateral. CFT is less than 5 seconds bilateral. Skin temperature is warm to cool proximal to distal bilateral. There is mild edema or varicosities noted. Neuro: Protective sensation is decreased to the foot and toes when tested with the 5.07 SWM bilateral. Vibratory sensation is absent at the hallux IPJ bilateral. The hallux is downgoing bilateral. Derm: Nails 1-5 b/l are painful, discolored-yellow, thick, crumbly, dystrophic and with subungal debris. Skin is of normal turgor, texture and hair growth is decreased bilateral. There are no hyperkeratosis, ulcerations, scars, verruca or other lesions noted. Ortho: Muscle strength is 5/5 for all pedal groups tested. Ankle joint DF is decreased with the knee extended with no pain or crepitus noted. 1st MPJ ROM is decreased bilateral. Assessment: (B35.1) Onychomycosis (primary encounter diagnosis) (M79.675) Pain in toe of left foot (M79.674) Pain in toe of right foot (E11.42) Diabetic polyneuropathy associated with type 2 diabetes mellitus (HCC) (R09.89) Diminished pulses in lower extremity Plan: Patient was seen and evaluated. Nails 1-5 bilateral were debrided in length and thickness. Patient was instructed on the continued importance of diabetic foot care along with proper diet and keeping their blood sugar under control to prevent complications. Patient is to RTC in 3-4 months. Lucinda Gallo DPM [facility] 10-08-2022 Instructions Lucinda Gallo - 10/08/2022 8:10 AM EST Diabetes Foot Care Instructions When you have diabetes, proper foot care is very important. Poor foot care may lead to amputation of a foot or leg. As a person with diabetes, you are more vulnerable to foot problems, because diabetes can damage your nerves and reduce blood flow to your feet. Here are some diabetes foot care tips to follow: Wash and Dry Your Feet Daily Use mild soaps Use warm water Pat your skin dry; do not rub. Thoroughly dry your feet. After washing, use lotion on your feet to prevent cracking. Do not put lotion between your toes. Examine Your Feet Each Day Check the tops and bottoms of your feet. Have someone else look at your feet if you cannot see them. Check for dry, cracked skin. Look for blisters, cuts, scratches, or other sores. Check for redness, increased warmth, or tenderness when touching any area of your feet. Check for ingrown toenails, corns, and calluses. If you get a blister or sore from your shoes, do not pop it. Apply a bandage and wear a different pair of shoes. Take Care of Your Toenails Cut toenails after bathing, when they are soft. Cut toenails straight across and smooth with a nail file. Avoid cutting into the corners of toes. Do not cut cuticles. If you have neuropathy (or decreased sensation in your feet) a front office coordinator should always cut your toenails. Be Careful When Exercising Walk and exercise in comfortable shoes. Do not exercise when you have open sores on your feet. Protect Your Feet With Shoes and Socks Never go barefoot. Always protect your feet by wearing shoes or hard-soled slippers or footwear. Avoid shoes with high heels and pointed toes. Avoid shoes that expose your toes or heels (such as open-toed shoes or sandals). These types of shoes increase your risk for injury and potential infections. Try on new footwear with the type of socks you usually wear. Do not wear new shoes for more than an hour at a time. Change your socks daily. Look and feel inside your shoes before putting them on to make sure there are no foreign objects or rough areas. Avoid tight socks. Wear natural-fiber socks (cotton, wool, or a cotton-wool blend). Wear special shoes if your health care provider recommends them. Wear shoes/boots that will protect your feet from various weather conditions (cold, moisture, etc.). Make sure your shoes fit properly. If you have neuropathy (nerve damage), you may not notice that your shoes are too tight. Perform the footwear test described below. Footwear Test Use this simple test to see if your shoes fit correctly: Stand on a piece of paper. (Make sure you are standing and not sitting, because your foot changes shape when you stand.) Trace the outline of your foot. Trace the outline of your shoe. Compare the tracings: Is the shoe too narrow? Is your foot crammed into the shoe? The shoe should be at least 1/2 inch longer than your longest toe and as wide as your foot. Proper Shoe Choices The following types of shoes are best for people with diabetes Closed toes and heels Leather uppers without a seam inside At least 1/2 inch extra space at the end of your longest toe Inside of shoe should be soft with no rough areas Outer sole should be made of stiff material Shoes should be at least as wide as your feet Tips for Foot Care in Diabetes Don't wait to treat a minor foot problem if you have diabetes. Follow your health care provider's guidelines and first aid guidelines. Report foot injuries and infections to your health care provider immediately. Check water temperature with your elbow, not your foot. Do not use a heating pad on your feet. Do not cross your legs. Do not self-treat your corns, calluses, or other foot problems. Go to your health care provider or front office coordinator to treat these conditions. documented in this encounter [facility] 10-08-2022 History of Presen t illness Narrative Last saw Dr. Warner: 07/10/22 Subjective: Patient presents to clinic c/o painful toenails. They state that the nails are especially painful with shoe gear and pressure. Patient states that nails 1-5 b/l are painful. Patient admits to being diabetic. No other pedal complaints at this time. Patient states no change in medications or medical history since last visit. Objective: Patient presents to clinic ambulating in sneakers Vasc: DP and PT pulses are decreased bilateral. CFT is less than 5 seconds bilateral. Skin temperature is warm to cool proximal to distal bilateral. There is mild edema or varicosities noted. Neuro: Protective sensation is decreased to the foot and toes when tested with the 5.07 SWM bilateral. Vibratory sensation is absent at the hallux IPJ bilateral. The hallux is downgoing bilateral. Derm: Nails 1-5 b/l are painful, discolored-yellow, thick, crumbly, dystrophic and with subungal debris. Skin is of normal turgor, texture and hair growth is decreased bilateral. There are no hyperkeratosis, ulcerations, scars, verruca or other lesions noted. Ortho: Muscle strength is 5/5 for all pedal groups tested. Ankle joint DF is decreased with the knee extended with no pain or crepitus noted. 1st MPJ ROM is decreased bilateral. Assessment: (B35.1) Onychomycosis (primary encounter diagnosis) (M79.675) Pain in toe of left foot (M79.674) Pain in toe of right foot (E11.42) Diabetic polyneuropathy associated with type 2 diabetes mellitus (HCC) (R09.89) Diminished pulses in lower extremity Plan: Patient was seen and evaluated. Nails 1-5 bilateral were debrided in length and thickness. Patient was instructed on the continued importance of diabetic foot care along with proper diet and keeping their blood sugar under control to prevent complications. Patient is to RTC in 3-4 months. Lucinda Gallo DPM documented in this encounter [facility] 10-06-2022 Miscellaneous Notes Patient notified. Judy Little LPN Lab orders placed. I do not think we need to order another PSA at this time. Devan Naylor APRN.CARISSA Patient stopped into office this day. Asking if provider could place lab orders so he could have them done prior to appointment coming up on 10/24/2022. States he isn't sure if you wanted to run a PSA too since he did just have one done in [facility]. Lab is in scanned docs. Please advise. Judy Little LPN documented in this encounter [facility] 07-11-2022 History of Presen t illness Narrative CC [place] in Place HPI: Tanisha Salter is a 82 year old male with a history of CaP s/p XRTand TURP in last month on Flomax . 3 failed TOV and has had to go back to ER after each one . The patient will wait 30 days since he has just had it exchanged and the we vicky do a TOV in 30 day sif not able to urina then he will try to learn ISC Assessment/Plan: > Continue Flomax 0.4 mg and RTC in 1 month for a de leon exchange and TOV > Teach Self-Catheterization to patient if he is interested LIZET Veloz, DONAL, YOSHI documented in this encounter [facility] 07-10-2022 History of Presen t illness Narrative Chief Complaint Patient presents with: Urinary Retention: Ongoing issues with urination and issues with catheter causing pain. HPI Tanisha Salter is a 82 year old male who presents here today for Above Complaints. Patient following up with Dr. Art for history of prostate cancer on Eligard and BPH s/p turp. On flomax and Proscar as prescribed. States that while he was receiving radiation for his prostate cancer back in mid May had urinary obstruction requiring catheterization. TURP completed in May. States that he continues to have urinary obstruction whenever they take out the catheter. Last replaced on 07/03 at [facility] and states that his new catheter is uncomfortable and pulls whenever he sits down. When he has BM gets small amount of blood from around the catheter and states that inside his urethra feels irritated/inflamed. Denies fever/chills, cloudy urine. Past medical history, appointments, medications, allergies reviewed. Previous Medical History PAST MEDICAL HISTORY Diagnosis Date BPH (benign prostatic hyperplasia) Diabetes mellitus, type 2 (HCC) Elevated prostate specific antigen (PSA) Hyperlipidemia [facility] Test[facility] cancer (HCC) radiation- Previous Surgical History PAST SURGICAL HISTORY Procedure Laterality Date COLONOSCOPY 2011 normal HEMORRHOIDECTOMY 1960s ORCHIECTOMY SIMPLE Left 1982 testicular cancer, with radiation PAST SURGICAL HISTORY OF Left knee arthroscopy TONSILLECTOMY HX childhood Family History FAMILY HISTORY Problem Relation Age of Onset Alzheimer's Disease Mother Heart Mother Diabetes Father Heart Father Cancer Sister No Known Problems Brother No Known Problems Maternal Grandmother No Known Problems Maternal Grandfather Diabetes Paternal Grandmother No Known Problems Paternal Grandfather Patient Allergies ALLERGIES Allergen Reactions Demerol [Meperidine] Vomiting Sulfa (Sulfonamide * Unknown Elevated temperature Tetanus Toxoid Hives Current Medications Current Outpatient Medications on File Prior to Visit Medication Sig leuprolide (ELIGARD) 22.5 mg syrg subcutaneous syringe Inject 22.5 mg subcutaneously every 3 months. tamsulosin (FLOMAX) 0.4 mg Take 2 capsules by mouth once daily. metFORMIN (GLUCOPHAGE) 1,000 mg tablet Take 0.5 tablets by mouth once daily. pravastatin (PRAVACHOL) 20 mg tablet Take 1 tablet by mouth once daily. finasteride (PROSCAR) 5 mg tablet Take 1 tablet by mouth once daily. No current facility-administered medications on file prior to visit. Social History Social History Tobacco Use Smoking status: Former Packs/day: 1.50 Years: 20.00 Pack years: 30.00 Types: Cigarettes Quit date: 07/23/1990 Years since quittin.9 Smokeless tobacco: Never Vaping Use Vaping Use: Never used Substance Use Topics Alcohol use: Yes Comment: rarely Drug use: No Review of Symptoms REVIEW OF SYSTEMS See HPI EXAM: BP 138/68 Pulse 86 Resp 18 Wt 84.8 kg (187 lb) SpO2 97% BMI 25.36 kg/m General Appearance: Well appearing, alert, in no acute distress, well-hydrated, well nourished.. Skin: Skin color, texture, turgor normal, no suspicious rashes or lesions. Genitalia: Catheter in place with clear/yellow urine in the bag. No gross hematuria or bleeding from urethra. Tube is adhered low on his leg which does pull when he goes from sitting to standing. Health Maintenance List COVID-19 VACCINE(4 - Booster for Pfizer series) due on 08/09/2021 ADVANCE DIRECTIVE DISCUSSION Never done DEPRESSION ASSESSMENT Never done HBA1C due on 10/23/2022 DILATED RETINAL EXAM due on 01/23/2023 DIABETIC FOOT EXAM due on 03/27/2023 URINE ALBUMIN:CREATININE RATIO due on 04/22/2023 LDL CHOLESTEROL due on 04/22/2023 INFLUENZA Completed SHINGRIX VACCINE Completed PNEUMOCOCCAL: 65+ Completed DTAP,TDAP,TD Discontinued ASSESSMENT/PLAN: 1. Bladder outlet obstruction - ICD9: 596.0, ICD10: N32.0 (primary diagnosis) Will refer to urology and try to get him an appointment tomorrow to have his catheter replaced and have urethral irritation with gross hematuria evaluation. UA abnormal today. Will start on macrobid for possible UTI and call with urine culture results. Push PO fluids. Red flags for re-assessment reviewed with patient in detail. - CONSULT TO UROLOGY 2. Urinary catheter in place - ICD9: V45.89, ICD10: Z96.0 3. Gross hematuria - ICD9: 599.71, ICD10: R31.0 - UA DIP, URINE (POC) 4. Prostate cancer (HCC) - ICD9: 185, ICD10: C61 - CONSULT TO UROLOGY 5. Benign prostatic hyperplasia with nocturia - ICD9: 600.01, 788.43, ICD10: N40.1, R35.1 - CONSULT TO UROLOGY Component Latest Ref Rng & Units 07/10/2022 GLUCOSE UA (POCT) Negative mg/dL Negative BILIRUBIN UA (POCT) Negative Negative KETONE UA (POCT) Negative mg/dL Negative SPECIFIC GRAVITY UA (POCT) 1.005 - 1.030 1.015 HEMOGLOBIN/BLOOD UA (POCT) Negative Large (A) PH UA (POCT) 4.5 - 8.0 6.0 PROTEIN UA (POCT) Negative mg/dL 30 (A) UROBILINOGEN UA (POCT) Normal E.U./dL 0.2 NITRITE UA (POCT) Negative Negative LEUKOCYTES UA (POCT) Negative Moderate (A) COLOR UA (POCT) Yellow CLARITY UA (POCT) Clear Yolande Warner MD documented in this encounter [facility] 07-10-2022 Miscellaneous Notes Reviewed. Phoned patient back as had received message wanted this nurse to call him back. Patient stated he has had numerous issues since going to Urology and wondering about second opinion. He stated he would like to see about face to face with provider. He asked I discuss his concerns with provider then call him back to schedule appt. Agreed to call patient back this afternoon after speaking with provider when he comes into office. Left patient a message to schedule appt 1-2 weeks following his urology appt. Left number for him to call to schedule. documented in this encounter [facility] 07-03-2022 History of Presen t illness Narrative Last saw Dr. Warner: 04/23/22 Subjective: Patient presents to clinic c/o painful toenails. They state that the nails are especially painful with shoe gear and pressure. Patient states that nails left hallux are painful. Patient admits to being diabetic. He recently was diagnosed with prostate cancer. No other pedal complaints at this time. Patient states no change in medications or medical history since last visit. Objective: Patient presents to clinic ambulating in sneaker Vasc: DP and PT pulses are faintly palpable bilateral. CFT is less than 5 seconds bilateral. Skin temperature is warm to cool proximal to distal bilateral. There is no edema or varicosities noted. Neuro: Protective sensation is intact to the foot and toes when tested with the 5.07 SWM bilateral. Vibratory sensation is absent at the hallux IPJ bilateral. The hallux is downgoing bilateral. Derm: Nails 1-5 b/l are painful, discolored-yellow, thick, crumbly, dystrophic and with subungal debris. Skin is of normal turgor, texture and hair growth is present bilateral. There are no hyperkeratosis, ulcerations, scars, verruca or other lesions noted. Ortho: Muscle strength is 5/5 for all pedal groups tested. Ankle joint DF is full with the knee extended with no pain or crepitus noted. 1st MPJ ROM is full bilateral. Assessment: (B35.1) Onychomycosis (primary encounter diagnosis) (M79.675) Pain in toe of left foot (M79.674) Pain in toe of right foot (E11.42) Diabetic polyneuropathy associated with type 2 diabetes mellitus (HCC) Plan: Patient was seen and evaluated. Nails 1-5 bilateral were debrided in length and thickness. Small bleed to left hallux and left 4th toe. Patient was instructed on the continued importance of diabetic foot care along with proper diet and keeping their blood sugar under control to prevent complications. Patient is to RTC in 3-4 months. Lucinda Gallo DPM Patient presents with: Left Foot - Established Patient, Follow Up, nail care Right Foot - Established Patient, Follow Up, nail care documented in this encounter [facility] 07-03-2022 Instructions Lucinda Gallo - 07/03/2022 8:11 AM EDT Diabetes Foot Care Instructions When you have diabetes, proper foot care is very important. Poor foot care may lead to amputation of a foot or leg. As a person with diabetes, you are more vulnerable to foot problems, because diabetes can damage your nerves and reduce blood flow to your feet. Here are some diabetes foot care tips to follow: Wash and Dry Your Feet Daily Use mild soaps Use warm water Pat your skin dry; do not rub. Thoroughly dry your feet. After washing, use lotion on your feet to prevent cracking. Do not put lotion between your toes. Examine Your Feet Each Day Check the tops and bottoms of your feet. Have someone else look at your feet if you cannot see them. Check for dry, cracked skin. Look for blisters, cuts, scratches, or other sores. Check for redness, increased warmth, or tenderness when touching any area of your feet. Check for ingrown toenails, corns, and calluses. If you get a blister or sore from your shoes, do not pop it. Apply a bandage and wear a different pair of shoes. Take Care of Your Toenails Cut toenails after bathing, when they are soft. Cut toenails straight across and smooth with a nail file. Avoid cutting into the corners of toes. Do not cut cuticles. If you have neuropathy (or decreased sensation in your feet) a front office coordinator should always cut your toenails. Be Careful When Exercising Walk and exercise in comfortable shoes. Do not exercise when you have open sores on your feet. Protect Your Feet With Shoes and Socks Never go barefoot. Always protect your feet by wearing shoes or hard-soled slippers or footwear. Avoid shoes with high heels and pointed toes. Avoid shoes that expose your toes or heels (such as open-toed shoes or sandals). These types of shoes increase your risk for injury and potential infections. Try on new footwear with the type of socks you usually wear. Do not wear new shoes for more than an hour at a time. Change your socks daily. Look and feel inside your shoes before putting them on to make sure there are no foreign objects or rough areas. Avoid tight socks. Wear natural-fiber socks (cotton, wool, or a cotton-wool blend). Wear special shoes if your health care provider recommends them. Wear shoes/boots that will protect your feet from various weather conditions (cold, moisture, etc.). Make sure your shoes fit properly. If you have neuropathy (nerve damage), you may not notice that your shoes are too tight. Perform the footwear test described below. Footwear Test Use this simple test to see if your shoes fit correctly: Stand on a piece of paper. (Make sure you are standing and not sitting, because your foot changes shape when you stand.) Trace the outline of your foot. Trace the outline of your shoe. Compare the tracings: Is the shoe too narrow? Is your foot crammed into the shoe? The shoe should be at least 1/2 inch longer than your longest toe and as wide as your foot. Proper Shoe Choices The following types of shoes are best for people with diabetes Closed toes and heels Leather uppers without a seam inside At least 1/2 inch extra space at the end of your longest toe Inside of shoe should be soft with no rough areas Outer sole should be made of stiff material Shoes should be at least as wide as your feet Tips for Foot Care in Diabetes Don't wait to treat a minor foot problem if you have diabetes. Follow your health care provider's guidelines and first aid guidelines. Report foot injuries and infections to your health care provider immediately. Check water temperature with your elbow, not your foot. Do not use a heating pad on your feet. Do not cross your legs. Do not self-treat your corns, calluses, or other foot problems. Go to your health care provider or front office coordinator to treat these conditions. documented in this encounter [facility] 04-23-2022 History of Presen t illness Narrative Chief Complaint Patient presents with: F/U 6 months HPI Tanisha Salter is a 82 year old male who presents here today for Above Complaints. DIABETES MELLITUS: Mr. Salter was last seen 6 months ago. Since our last visit he denies excessive thirst or increased frequency of urination, numbness, tingling or pain in extremities, new or unusu al visual symptoms, and low sugar/hypoglycemic reactions. Follows a diabetic diet most of the time. He is compliant with medication(s) and is tolerating med(s) without any side effects. He reports checking his glucose on a infrequent to not at all basis. Patient's last HgA1C was Hemoglobin A1C (%) Date Value 04/22/2022 6.4 10/18/2021 6.3 04/17/2021 6.4 ) Last Ophthalmology exam was within the past 12 months Last Podiatry exam was within the past 12 months Patient following up with Dr. Art for elevated PSA and likely prostate cancer. Had biopsy earlier this month which was positive for cancer. Reports MRI showed cancer with spread to single lymph node. Referred to Dr. Valdes for radiation oncology and will do radiation daily for 5 1/2 weeks. States they are not going to remove prostate or treat with chemo. Urinary symptoms have not changed with weak stream, straining, nocutria 3-4 times per night. Taking flomax and finasteride as prescribed. Notes pain in left 5th finger which gets stuck in flexion. Asking about Voltaren gel for PRN use. Not interested in surgery referral. Has living will and DPOA at home. States he is FULL CODE. Past medical history, appointments, medications, allergies reviewed. Previous Medical History PAST MEDICAL HISTORY Diagnosis Date BPH (benign prostatic hyperplasia) Diabetes mellitus, type 2 (HCC) Elevated prostate specific antigen (PSA) Hyperlipidemia Prostate cancer (HCC) [facility] Spinal stenosis lumbar Testicular cancer (HCC) radiation- Previous Surgical History PAST SURGICAL HISTORY Procedure Laterality Date COLONOSCOPY 2011 normal HEMORRHOIDECTOMY 1960s ORCHIECTOMY SIMPLE Left 1983 testicular cancer, with radiation PAST SURGICAL HISTORY OF Left knee arthroscopy TONSILLECTOMY HX childhood Family History FAMILY HISTORY Problem Relation Age of Onset Alzheimer's Disease Mother Heart Mother Diabetes Father Heart Father Cancer Sister No Known Problems Brother No Known Problems Maternal Grandmother No Known Problems Maternal Grandfather Diabetes Paternal Grandmother No Known Problems Paternal Grandfather Patient Allergies ALLERGIES Allergen Reactions Asa [Aspirin] Other: See Comments was told not to take it Demerol [Meperidine] Vomiting Sulfa (Sulfonamide * Unknown Elevated temperature Tetanus Toxoid Hives Current Medications Current Outpatient Medications on File Prior to Visit Medication Sig metFORMIN (GLUCOPHAGE) 1,000 mg tablet Take 0.5 tablets by mouth once daily. pravastatin (PRAVACHOL) 20 mg tablet Take 1 tablet by mouth once daily. finasteride (PROSCAR) 5 mg tablet Take 1 tablet by mouth once daily. naproxen (NAPROSYN) 500 mg tablet Take 1 tablet by mouth twice daily as needed for pain. Take with food. (Patient not taking: Reported on 12/11/2021 ) tamsulosin (FLOMAX) 0.4 mg Take 2 capsules by mouth once daily. No current facility-administered medications on file prior to visit. Social History Social History Tobacco Use Smoking status: Former Packs/day: 1.50 Years: 20.00 Pack years: 30.00 Types: Cigarettes Quit date: 07/23/1990 Years since quittin.7 Smokeless tobacco: Never Vaping Use Vaping Use: Never used Substance Use Topics Alcohol use: Yes Comment: rarely Drug use: No Review of Symptoms REVIEW OF SYSTEMS GENERAL: No weight loss, malaise or fevers RESPIRATORY: Negative for cough, hemoptysis, wheezing, COPD, dyspnea or shortness of breath CARDIOVASCULAR: Negative for chest pain, leg swelling, hypertension, CHF or palpitations GI: No nausea, vomiting, or diarrhea SKIN: Negative for lesions, rash, and itching EXAM: BP 126/78 Pulse 72 Resp 14 Wt 83.9 kg (185 lb) BMI 25.09 kg/m General Appearance: Well appearing, alert, in no acute distress, well-hydrated, well nourished.. Skin: Skin color, texture, turgor normal, no suspicious rashes or lesions. Lungs: Lungs clear to auscultation. No wheezing, rhonchi, rales.. Heart: RRR without murmur, gallop, or rubs. No ectopy. Abdomen: Normal abdominal exam, Abdomen soft, non-tender. Bowel sounds normal. No masses, organomegaly. Extremities: No deformities, edema, skin discoloration, clubbing or cyanosis. Good capillary refill. Musculoskeletal: no reproducible trigger finger on exam today. Does have tender nodule on tendon of left 5th finger. . Health Maintenance List ADVANCE DIRECTIVE DISCUSSION Never done COVID-19 VACCINE(4 - Booster for Pfizer series) due on 10/15/2021 INFLUENZA(1) due on 05/01/2022 HBA1C due on 10/23/2022 DILATED RETINAL EXAM due on 01/23/2023 DIABETIC FOOT EXAM due on 03/27/2023 URINE ALBUMIN:CREATININE RATIO due on 04/22/2023 LDL CHOLESTEROL due on 04/22/2023 SHINGRIX VACCINE Completed PNEUMOCOCCAL: 65+ Completed DTAP,TDAP,TD Discontinued Data reviewed Component Latest Ref Rng & Units 12/20/2021 04/22/2022 Protein, Total 6.3 - 8.0 g/dL 7.1 Albumin 3.9 - 4.9 g/dL 4.4 Calcium 8.5 - 10.2 mg/dL 10.0 Bilirubin, Total 0.2 - 1.3 mg/dL 0.4 Alkaline Phosphatase 38 - 113 U/L 57 AST 14 - 40 U/L 17 ALT 10 - 54 U/L 17 Glucose 74 - 99 mg/dL 119 (H) BUN 9 - 24 mg/dL 15 Creatinine 0.73 - 1.22 mg/dL 1.03 Sodium 136 - 144 mmol/L 136 Potassium 3.7 - 5.1 mmol/L 4.7 Chloride 97 - 105 mmol/L 100 CO2 22 - 30 mmol/L 24 Anion Gap 9 - 18 mmol/L 12 eGFR >=60 mL/min/1.73m 73 Total Cholesterol, Nonfasting <200 mg/dL 131 Triglycerides, Nonfasting <150 mg/dL 111 HDL Cholesterol, Nonfasting >39 mg/dL 46 LDL Cholesterol, Nonfasting <100 mg/dL 63 Non HDL Cholesterol, Nonfasting <130 mg/dL 85 VLDL Cholesterol, Nonfasting <30 mg/dL 22 Total Chol/HDL Ratio, Nonfasting <5.10 mg/dL 2.85 LDL/HDL Ratio, Nonfasting <2.54 mg/dL 1.37 Creatinine, Ur Random (UCRR) 20.0 - 300.0 mg/dL 94.0 Albumin, Urine Random mg/L 13.3 Albumin/Creat Ratio <30 mg/g 14 Hemoglobin A1C 4.3 - 5.6 % 6.4 (H) Estimated Average Glucose mg/dL 137 PSA <2.60 ng/mL 11.04 (H) ASSESSMENT/PLAN: 1. Type 2 diabetes mellitus without complication, without long-term current use of insulin (HCC) - ICD9: 250.00, ICD10: E11.9 (primary diagnosis) Controlled. - Continue current medications - Blood glucose monitoring on a once a day schedule - Encouraged regular aerobic exercise and weight loss - Follow up in 6 months, sooner should any other issues arise. - Discussed diabetic education issues of care home diabetic complications, hypoglycemic symptoms, hyperglycemic symptoms, diet, medications- side effects and need for compliance, importance of exercise, and importance of annual examinations with Opthalmology with patient. - METFORMIN 1,000 MG TABLET - METFORMIN 1,000 MG TABLET 2. Hyperlipidemia, unspecified hyperlipidemia type - ICD9: 272.4, ICD10: E78.5 - good control - Continue current medication. - Encouraged following a low fat, low cholesterol diet. - Discussed the benefits of regular aerobic exercise and weight loss. - TAMSULOSIN 0.4 MG CAPSULE - METFORMIN 1,000 MG TABLET - METFORMIN 1,000 MG TABLET 3. Benign prostatic hyperplasia with nocturia - ICD9: 600.01, 788.43, ICD10: N40.1, R35.1 Symptoms stable on flomax and finasteride. Continue current regimen. F/u with urology recommendations for prostate cancer. - TAMSULOSIN 0.4 MG CAPSULE 4. Prostate cancer (HCC) - ICD9: 185, ICD10: C61 F/u with radiation treatment and urology/oncology recommendations. 5. Elevated PSA - ICD9: 790.93, ICD10: R97.20 - TAMSULOSIN 0.4 MG CAPSULE 6. Trigger little finger of right hand - ICD9: 727.03, ICD10: M65.351 Discussed use of ice for pain. Refusing surgery at this time. Will call if symptoms worsening. Yolande Warner MD documented in this encounter [facility] 04-22-2022 Miscellaneous Notes Ordered. Called the lab they said as long as provider puts in the non-fasting lipid panel they will cancel the other order and credit the blood to the new one. Lipid panel already drawn before I could order the non fasting. Phoned patient and updated him with providers message. Patient asking if he can come in and have labs drawn this am since he ate. Provider stated he will have lipid panel changed to non-fasting. Patient will be in to have labs drawn. Labs ordered to be drawn today. Can reschedule OV for or Thursday if he would like. Patient calling said he does labs every 6 months and no orders are present when he came to lab this morning. Patient is asking if he should cancel and reschedule his appt? Pending orders if wanted needs diagnosis. Please advise Patient came in requesting labs [facility] appointment on 04/23 Thank you Erika Jones documented in this encounter [facility] 03-26-2022 History of Presen t illness Narrative Images from the original note were not included. Subjective HPI HPI Tanisha Salter is a 81 year old male who presents today for CC of right little finger pain. This started few months ago. Has tried otc medication for relief. Symptoms are worsened by rom of finger. Risk factor, hx of arthritis. Denies numbness/tingling of right little finger. .Patient presents with: Finger Pain: right pinky finger into right palm pain x couple months PAST MEDICAL HISTORY Diagnosis Date BPH (benign prostatic hyperplasia) Diabetes mellitus, type 2 (HCC) Hyperlipidemia Spinal stenosis lumbar Testicular cancer (HCC) radiation- PAST SURGICAL HISTORY Procedure Laterality Date COLONOSCOPY 2011 normal HEMORRHOIDECTOMY 1960s ORCHIECTOMY SIMPLE Left 1983 testicular cancer, with radiation PAST SURGICAL HISTORY OF Left knee arthroscopy TONSILLECTOMY HX childhood ALLERGIES Asa [Aspirin], Demerol [Meperidine], Sulfa (Sulfonamide Antibiotics), and Tetanus Toxoid MEDICATIONS tamsulosin (FLOMAX) 0.4 mg Take 2 capsules by mouth once daily. pravastatin (PRAVACHOL) 20 mg tablet Take 1 tablet by mouth once daily. finasteride (PROSCAR) 5 mg tablet Take 1 tablet by mouth once daily. metFORMIN (GLUCOPHAGE) 1,000 mg tablet Take 0.5 tablets by mouth once daily. naproxen (NAPROSYN) 500 mg tablet Take 1 tablet by mouth twice daily as needed for pain. Take with food. FAMILY HISTORY Problem Relation Age of Onset Alzheimer's Disease Mother Heart Mother Diabetes Father Heart Father Cancer Sister No Known Problems Brother No Known Problems Maternal Grandmother No Known Problems Maternal Grandfather Diabetes Paternal Grandmother No Known Problems Paternal Grandfather Social History Tobacco Use Smoking status: Former Smoker Packs/day: 1.50 Years: 20.00 Pack years: 30.00 Types: Cigarettes Quit date: 07/23/1990 Years since quittin.6 Smokeless tobacco: Never Used Vaping Use Vaping Use: Never used Substance Use Topics Alcohol use: Yes Comment: rarely Drug use: No ROS Objective Blood pressure 140/82, pulse 68, temperature 36.1 C (96.9 F), resp. rate 16, weight 86.6 kg (191 lb), SpO2 97 %. Physical Exam Constitutional: General: He is not in acute distress. Appearance: He is not toxic-appearing or diaphoretic. HENT: Head: Normocephalic and atraumatic. Pulmonary: Effort: Pulmonary effort is normal. No accessory muscle usage or respiratory distress. Musculoskeletal: Hands: Neurological: Mental Status: He is alert and oriented to person, place, and time. ASSESSMENT/PLAN: 1. Finger pain, right - ICD9: 729.5, ICD10: M79.644 -no bony abnormality noted on xray -try tylenol arthritis, voltarin gel otc F/u for continued/worsening s/s. -follow up with primary care if symptoms persist/worsen in 10-14 days - XR DIGIT GENERAL 3V FRONTAL/LAT/OBL RIGHT IMPRESSION: No acute osseous abnormality. Dictated by : NELL HERNANDEZ DO Agrees to plan Simon Alvarado APRN.CARISSA documented in this encounter [facility] 12-24-2021 History of Presen t illness Narrative Images from the original note were not included. [facility] [place] Some elements copied from my previous note, which have been updated where appropriate, and all reflect current medical decision making from date of this visit. PATIENT INFO: Tanisha Salter 81 year old ( ) REFERRING PROVIDER: Benny Sánchez PCP: Yolande Warner MD December 24, 2021 HPI: Tanisha Salter 81 year old male is here today for follow up for discussion of his most recent PSA of 11.04 His PSAhas increase 3 separate times over about 1 months time 11/19 (3.12) to (7.65) to (8.51) to now 12/20 (11.04)- ALL have been while on Proscar 5 mg so current PSA is roughly 22 There is no obvious cause for false positive PSA. Patient is 81 yrs old and is wanting avoid a biopsy , and we discussed this at length That is tested need to make a tissue diagnosis, he has a lot of questions, however, most are about what happens after the biopsy , and I keep trying redirect him to first deal with biopsy or not, then we can discuss specifics base on actual pathology. He avoid this discussion and states he would like to have the biopsy done with Dr. Art so at this time There is no planned procedure or appointments with [facility]. I am concerned he may not follow through on the biopsy, so I asked him to call when he makes a final decision so I can Document the course he takes. LUTS: Other symptoms: LABS: PSA (ng/mL) Date Value 12/20/2021 11.04 11/22/2021 8.51 10/10/2020 3.12 10/05/2019 2.71 08/18/2018 1.82 PSA Screening (ng/mL) Date Value 10/18/2021 7.65 No results found for: TESTOST MEDICATIONS: tamsulosin (FLOMAX) 0.4 mg Take 2 capsules by mouth once daily. pravastatin (PRAVACHOL) 20 mg tablet Take 1 tablet by mouth once daily. finasteride (PROSCAR) 5 mg tablet Take 1 tablet by mouth once daily. metFORMIN (GLUCOPHAGE) 1,000 mg tablet Take 0.5 tablets by mouth once daily. naproxen (NAPROSYN) 500 mg tablet Take 1 tablet by mouth twice daily as needed for pain. Take with food. PAST MEDICAL HISTORY: PAST MEDICAL HISTORY Diagnosis Date BPH (benign prostatic hyperplasia) Diabetes mellitus, type 2 (HCC) Hyperlipidemia Spinal stenosis lumbar Testicular cancer (HCC) radiation- PAST SURGICAL HISTORY: PAST SURGICAL HISTORY Procedure Laterality Date COLONOSCOPY 2011 normal HEMORRHOIDECTOMY 1960s ORCHIECTOMY SIMPLE Left 1983 testicular cancer, with radiation PAST SURGICAL HISTORY OF Left knee arthroscopy TONSILLECTOMY HX childhood REVIEW OF SYSTEMS: GENERAL: No fever, chills, weight loss, or fatigue. PHYSICAL EXAMINATION: Blood pressure 118/70, pulse 70, temperature 36.1 C (96.9 F), temperature source Temporal, resp. rate 14, height 182.9 cm (6'), weight 88.9 kg (196 lb), SpO2 96 %. GENERAL: WNL nutrition, no deformities, healthy appearing PROBLEM LIST REVIEW: Yes LABS: Results for orders placed or performed in visit on 12/24/21 UA DIP, URINE (POC) Result Value Ref Range GLUCOSE UA (POCT) Negative Negative mg/dL BILIRUBIN UA (POCT) Negative Negative KETONE UA (POCT) Negative Negative mg/dL SPECIFIC GRAVITY UA (POCT) 1.015 1.005 - 1.030 HEMOGLOBIN/BLOOD UA (POCT) Negative Negative PH UA (POCT) 7.0 4.5 - 8.0 PROTEIN UA (POCT) Negative Negative mg/dL UROBILINOGEN UA (POCT) 0.2 Normal E.U./dL NITRITE UA (POCT) Negative Negative LEUKOCYTES UA (POCT) Negative Negative COLOR UA (POCT) Yellow CLARITY UA (POCT) Clear PVR: 39 ml IMAGING: IMPRESSION/PLAN: 1. Elevated PSA which has increase 3 separate times over about 1 months time 3.12 to 7.65 to 8.51 to now 11.04 - ALL have been while on Proscar 5 mg so current PSA is roughly 22 > Patient needs a prostate biopsy if he would like to pursue the now increasing PSA LIZET Veloz MT, PA-C CC Post Void Residual HPI: Tanisha Salter is a 81 year old male. The patient is here now for an appointment with LIZET Veloz MT, PA-COV. Procedure: Explained procedure to patient and verbalizes understanding. Performed a PVR. Patient urinated and instructed to empty bladder as much as possible just prior to having PVR done using bladder ultrasound scanner. Results of scan: 39 mL The patient tolerated the procedure well. Plan: Appointment with Benny. documented in this encounter [facility] 12-16-2021 Miscellaneous Notes Kellie with [facility] calls to request more information for urology referral be faxed to office (only received demographic sheet previously). Faxed demographics, referral, labs, office note, and medication list to [phone] per request. Vicki Ambrose RN documented in this encounter [facility] 12-11-2021 Miscellaneous Notes Patient telephoned. Made aware consult has been faxed to Dr. Briggs office. Judy Little LPN Consult place. Please fax as requested and let patient know when faxed. Thanks, Devan Naylor APRN.SHOOK SPLICER Patient in this day. Requesting to be seen by a different urologist then previously seen. Requesting we fax paperwork and consult over to Dr. Pacheco (Urology) office so they can take over his urology care at this time. Patient provided this nurse with a fax number for Dr. Briggs office . Judy Little LPN documented in this encounter [facility] 12-11-2021 History of Presen t illness Narrative Last saw Devan Naylor 11/27/21 Subjective: Patient presents to clinic c/o painful toenails. They state that the nails are especially painful with shoe gear and pressure. Patient states that nails 1-5 b/l are painful. Patient admits to being diabetic. No other pedal complaints at this time. Patient states no change in medications or medical history since last visit. Objective: Patient presents to clinic ambulating in [facility] Vasc: DP and PT pulses are palpable bilateral. CFT is less than 5 seconds bilateral. Skin temperature is warm to cool proximal to distal bilateral. There is no edema or varicosities noted. Neuro: Protective sensation is intact to the foot and toes when tested with the 5.07 SWM bilateral. Vibratory sensation is decreased at the hallux IPJ bilateral. The hallux is downgoing bilateral. Derm: Nails 1-5 b/l are painful, discolored-yellow, thick, crumbly, dystrophic and with subungal debris. Skin is of normal turgor, texture and hair growth is prsent bilateral. There are no hyperkeratosis, ulcerations, scars, verruca or other lesions noted. Ortho: Muscle strength is 5/5 for all pedal groups tested. Ankle joint DF is full with the knee extended with no pain or crepitus noted. 1st MPJ ROM is full bilateral. Assessment: (B35.1) Onychomycosis (primary encounter diagnosis) (M79.675) Pain in toe of left foot (M79.674) Pain in toe of right foot (E11.42) Diabetic polyneuropathy associated with type 2 diabetes mellitus (HCC) Plan: Patient was seen and evaluated. Nails 1-5 bilateral were debrided in length and thickness. Patient was instructed on the continued importance of diabetic foot care along with proper diet and keeping their blood sugar under control to prevent complications. Patient is to RTC in 3-4 months. Lucinda Gallo DPM documented in this encounter [facility] 12-11-2021 Instructions Lucinda Gallo - 12/11/2021 8:00 AM EDT Diabetes Foot Care Instructions When you have diabetes, proper foot care is very important. Poor foot care may lead to amputation of a foot or leg. As a person with diabetes, you are more vulnerable to foot problems, because diabetes can damage your nerves and reduce blood flow to your feet. Here are some diabetes foot care tips to follow: Wash and Dry Your Feet Daily Use mild soaps Use warm water Pat your skin dry; do not rub. Thoroughly dry your feet. After washing, use lotion on your feet to prevent cracking. Do not put lotion between your toes. Examine Your Feet Each Day Check the tops and bottoms of your feet. Have someone else look at your feet if you cannot see them. Check for dry, cracked skin. Look for blisters, cuts, scratches, or other sores. Check for redness, increased warmth, or tenderness when touching any area of your feet. Check for ingrown toenails, corns, and calluses. If you get a blister or sore from your shoes, do not pop it. Apply a bandage and wear a different pair of shoes. Take Care of Your Toenails Cut toenails after bathing, when they are soft. Cut toenails straight across and smooth with a nail file. Avoid cutting into the corners of toes. Do not cut cuticles. If you have neuropathy (or decreased sensation in your feet) a front office coordinator should always cut your toenails. Be Careful When Exercising Walk and exercise in comfortable shoes. Do not exercise when you have open sores on your feet. Protect Your Feet With Shoes and Socks Never go barefoot. Always protect your feet by wearing shoes or hard-soled slippers or footwear. Avoid shoes with high heels and pointed toes. Avoid shoes that expose your toes or heels (such as open-toed shoes or sandals). These types of shoes increase your risk for injury and potential infections. Try on new footwear with the type of socks you usually wear. Do not wear new shoes for more than an hour at a time. Change your socks daily. Look and feel inside your shoes before putting them on to make sure there are no foreign objects or rough areas. Avoid tight socks. Wear natural-fiber socks (cotton, wool, or a cotton-wool blend). Wear special shoes if your health care provider recommends them. Wear shoes/boots that will protect your feet from various weather conditions (cold, moisture, etc.). Make sure your shoes fit properly. If you have neuropathy (nerve damage), you may not notice that your shoes are too tight. Perform the footwear test described below. Footwear Test Use this simple test to see if your shoes fit correctly: Stand on a piece of paper. (Make sure you are standing and not sitting, because your foot changes shape when you stand.) Trace the outline of your foot. Trace the outline of your shoe. Compare the tracings: Is the shoe too narrow? Is your foot crammed into the shoe? The shoe should be at least 1/2 inch longer than your longest toe and as wide as your foot. Proper Shoe Choices The following types of shoes are best for people with diabetes Closed toes and heels Leather uppers without a seam inside At least 1/2 inch extra space at the end of your longest toe Inside of shoe should be soft with no rough areas Outer sole should be made of stiff material Shoes should be at least as wide as your feet Tips for Foot Care in Diabetes Don't wait to treat a minor foot problem if you have diabetes. Follow your health care provider's guidelines and first aid guidelines. Report foot injuries and infections to your health care provider immediately. Check water temperature with your elbow, not your foot. Do not use a heating pad on your feet. Do not cross your legs. Do not self-treat your corns, calluses, or other foot problems. Go to your health care provider or front office coordinator to treat these conditions. documented in this encounter [facility] 11-27-2021 Miscellaneous Notes Paperwork faxed to Dr. Barlow office at this time. Judy Little LPN Please fax consult, urology's office note, labs and urine testing to Dr. Arciniega at [facility]- all of this is in my outbox. Devan Naylor APRN.CARISSA Phoned patient and discussed prostate biopsy. Patient states he wants to wait a few days and think about his decision and he will call us back to let us know by the end of the week of his decision. Manju Talbot LPN As we discussed in the past visitis if the PSA went up after waiting a few months to repeat it, then I recommend a prostate biopsy , there is a concern for prostate cancer, but needs a biopsy to determine that. However, being 81 yo , he may elect to ot have biopsy , that is his decision. It will be a [facility] if he would like it done. Let me know I ill arrange for it when he wants it. LIZET Veloz, MT, PACaioC\ Patient stopped by and left a message for urology. I phoned and spoke with patient who states he got on MyChart, despite his dislike for it, and now needs to have clarification of labs done on November 22, 2021. Patient also has a appointment December 20, 2021 and he would like to know if he needs to keep that appointment? Please advise. Manju Talbot LPN documented in this encounter [facility] 11-27-2021 History of Presen t illness Narrative 11/27/2021 Patient presents with: Abdominal Pain SUBJECTIVE: This is a 81 year old that is here today for Above Complaints.. ONSET: a few weeks LOCATION: pressure across lower abdomen DURATION: Always a discomfort there- worse at certain times CHARACTERISTICS: pressure AGGRAVATING FEATURES: none ALLEVIATING FEATURES: has not used anything RADIATION: sometimes to the back Concerned for continue pressure in lower abdomen. Reports has been to urologist twice. Concerned because PSA is elevated and he wants to know if this is correlated to his lower abdominal pressure. Taking medications as ordered. Admits to urinary frequency. Denies fevers, chills, nausea, vomiting, constipation, diarrhea, hematochezia, melana, dysuria or hematuria. PAST MEDICAL HISTORY Diagnosis Date BPH (benign prostatic hyperplasia) Diabetes mellitus, type 2 (HCC) Hyperlipidemia Spinal stenosis lumbar Testicular cancer (HCC) radiation- 1980s ALLERGIES Demerol [Meperidine], Sulfa (Sulfonamide Antibiotics), and Tetanus Toxoid MEDICATIONS Current Outpatient Medications Medication Sig tamsulosin (FLOMAX) 0.4 mg Take 2 capsules by mouth once daily. pravastatin (PRAVACHOL) 20 mg tablet Take 1 tablet by mouth once daily. finasteride (PROSCAR) 5 mg tablet Take 1 tablet by mouth once daily. metFORMIN (GLUCOPHAGE) 1,000 mg tablet Take 0.5 tablets by mouth once daily. naproxen (NAPROSYN) 500 mg tablet Take 1 tablet by mouth twice daily as needed for pain. Take with food. (Patient not taking: Reported on 11/22/2021 ) No current facility-administered medications for this visit. Medications and allergies reviewed by this provider. SOCIAL HISTORY Social History Tobacco Use Smoking status: Former Smoker Packs/day: 1.50 Years: 20.00 Pack years: 30.00 Types: Cigarettes Quit date: 07/23/1990 Years since quittin.3 Smokeless tobacco: Never Used Vaping Use Vaping Use: Never used Substance Use Topics Alcohol use: Yes Comment: rarely Drug use: No REVIEW OF SYSTEMS All other reviewed and negative other than HPI. OBJECTIVE: BP 130/74 Pulse 75 Temp (!) 35.8 C (96.4 F) Resp 18 Wt 89.1 kg (196 lb 6.4 oz) SpO2 98% BMI 26.64 kg/m . Vital signs reviewed by this provider. APPEARANCE Well appearing, alert, in no acute distress, well-hydrated, well nourished. ABDOMEN No TTP Component Latest Ref Rng & Units 11/22/2021 GLUCOSE UA (POCT) Negative mg/dL Negative BILIRUBIN UA (POCT) Negative Negative KETONE UA (POCT) Negative mg/dL Negative SPECIFIC GRAVITY UA (POCT) 1.005 - 1.030 1.010 HEMOGLOBIN/BLOOD UA (POCT) Negative Trace-intact (A) PH UA (POCT) 4.5 - 8.0 6.0 PROTEIN UA (POCT) Negative mg/dL Negative UROBILINOGEN UA (POCT) Normal E.U./dL 0.2 NITRITE UA (POCT) Negative Negative LEUKOCYTES UA (POCT) Negative Negative COLOR UA (POCT) Yellow CLARITY UA (POCT) Clear PSA <2.60 ng/mL 8.51 (H) Culture No growth (<1,000 CFU/ml) ADVANCE DIRECTIVE DISCUSSION Never done DIABETIC FOOT EXAM due on 10/12/2021 URINE ALBUMIN:CREATININE RATIO due on 04/17/2022 LDL CHOLESTEROL due on 04/17/2022 HBA1C due on 04/17/2022 DILATED RETINAL EXAM due on 07/04/2022 INFLUENZA Completed PNEUMOVAX AGE 65 AND OVER WITH 5YR LOOKBACK Completed SHINGRIX VACCINE Completed COVID-19 VACCINE Completed MENINGOCOCCAL CONJUGATE Aged Out DTAP,TDAP,TD Discontinued ASSESSMENT/PLAN: 1. Bladder pain - ICD9: 788.99, ICD10: R39.89 (primary diagnosis) - unknown etiology - CONSULT TO UROLOGY- want to see local urologist- will send referral to Dr. Arciniega at [facility] 2. Elevated PSA - ICD9: 790.93, ICD10: R97.20 - CONSULT TO UROLOGY Devan Naylor APRN.SHOOK SPLICER Prescription instructions reviewed with patient as applicable. Patient advised if symptoms do not improve or if symptoms worsen sooner, to contact their primary care physician. Potential red flag symptoms discussed with the patient. Reviewed appropriate action plan to take if red flag symptoms occur. Patient agreeable to treatment plan. documented in this encounter [facility] documented as of this encounter (statuses as of 07/03/2022) [facility]-2022 History of Past illness Narrative* Problem Noted Date Resolved Date Acute back pain with sciatica, right 10/22/2021 06/04/2022 Testicular cancer 08/17/2018 Overview: radiation- documented as of this encounter (statuses as of 07/11/2022) [facility] History of Past illness Narrative* Problem Noted Date Resolved Date Acute back pain with sciatica, right 10/22/2021 06/04/2022 Testicular cancer 08/17/2018 Overview: radiation- documented as of this encounter (statuses as of 07/12/2022) [facility] History of Past illness Narrative* Problem Noted Date Resolved Date Acute back pain with sciatica, right 10/22/2021 06/04/2022 Testicular cancer 08/17/2018 Overview: radiation- 1980s documented as of this encounter (statuses as of 07/29/2022) [facility] History of Past illness Narrative* Problem Noted Date Resolved Date Acute back pain with sciatica, right 10/22/2021 06/04/2022 Testicular cancer 08/17/2018 Overview: radiation- 1980s documented as of this encounter (statuses as of 10/07/2022) [facility] History of Past illness Narrative* Problem Noted Date Resolved Date Acute back pain with sciatica, right 10/22/2021 06/04/2022 Testicular cancer 08/17/2018 Overview: radiation- 1980s documented as of this encounter (statuses as of 10/08/2022) [facility] History of Past illness Narrative* Problem Noted Date Resolved Date Acute back pain with sciatica, right 10/22/2021 06/04/2022 Testicular cancer 08/17/2018 Overview: radiation- 1980s documented as of this encounter (statuses as of 10/20/2022) [facility] History of Past illness Narrative* Problem Noted Date Resolved Date Acute back pain with sciatica, right 10/22/2021 06/04/2022 Testicular cancer 08/17/2018 Overview: radiation- 1980s documented as of this encounter (statuses as of 10/24/2022) [address]22-2022 History of Past illness Narrative* Problem Noted Date Resolved Date Acute back pain with sciatica, right 10/22/2021 06/04/2022 Testicular cancer 08/17/2018 Overview: radiation- 1980s documented as of this encounter (statuses as of 10/25/2022) [facility] History of Past illness Narrative* Problem Noted Date Resolved Date Acute back pain with sciatica, right 10/22/2021 06/04/2022 Testicular cancer 08/17/2018 Overview: radiation- 1980s documented as of this encounter (statuses as of 11/07/2022) [facility] History of Past illness Narrative* Problem Noted Date Resolved Date Acute back pain with sciatica, right 10/22/2021 06/04/2022 Testicular cancer 08/17/2018 Overview: radiation- 1980s documented as of this encounter (statuses as of 12/16/2022) [address]22-2022 History of Past illness Narrative* Problem Noted Date Resolved Date Acute back pain with sciatica, right 10/22/2021 06/04/2022 Testicular cancer 08/17/2018 Overview: radiation- 1980s documented as of this encounter (statuses as of 01/07/2023) [facility] History of Past illness Narrative* Problem Noted Date Resolved Date Acute back pain with sciatica, right 10/22/2021 06/04/2022 Testicular cancer 08/17/2018 Overview: radiation- 1980s documented as of this encounter (statuses as of 02/20/2023) [facility] History of Past illness Narrative* Problem Noted Date Resolved Date Acute back pain with sciatica, right 10/22/2021 06/04/2022 Testicular cancer 08/17/2018 Overview: radiation- 1980s documented as of this encounter (statuses as of 02/25/2023) [facility] History of Past illness Narrative* Problem Noted Date Resolved Date Acute back pain with sciatica, right 10/22/2021 06/04/2022 Testicular cancer 08/17/2018 Overview: radiation- 1980s documented as of this encounter (statuses as of 02/26/2023) [facility] History of Past illness Narrative* Problem Noted Date Diagnosed Date Resolved Date Acute back pain with sciatica, right 10/22/2021 06/04/2022 Testicular cancer 08/17/2018 Overview: radiation- 1980s documented as of this encounter (statuses as of 04/13/2023) [facility] History of Past illness Narrative* Problem Noted Date Diagnosed Date Resolved Date Acute back pain with sciatica, right 10/22/2021 06/04/2022 Testicular cancer 08/17/2018 Overview: radiation- 1980s documented as of this encounter (statuses as of 04/23/2023) [facility] History of Past illness Narrative* Problem Noted Date Diagnosed Date Resolved Date Acute back pain with sciatica, right 10/22/2021 06/04/2022 Testicular cancer 08/17/2018 Overview: radiation- 1980s documented as of this encounter (statuses as of 04/23/2023) [address]22-2022 History of Past illness Narrative* Problem Noted Date Diagnosed Date Resolved Date Acute back pain with sciatica, right 10/22/2021 06/04/2022 Testicular cancer 08/17/2018 Overview: radiation- 1980s documented as of this encounter (statuses as of 05/07/2023) [address]22-2022 History of Past illness Narrative* Problem Noted Date Diagnosed Date Resolved Date Acute back pain with sciatica, right 10/22/2021 06/04/2022 Testicular cancer 08/17/2018 Overview: radiation- 1980s documented as of this encounter (statuses as of 05/09/2023) [address]22-2022 History of Past illness Narrative* Problem Noted Date Diagnosed Date Resolved Date Acute back pain with sciatica, right 10/22/2021 06/04/2022 Testicular cancer 08/17/2018 Overview: radiation- 1980s documented as of this encounter (statuses as of 05/13/2023) [facility] History of Past illness Narrative* Problem Noted Date Diagnosed Date Resolved Date Acute back pain with sciatica, right 10/22/2021 06/04/2022 Testicular cancer 08/17/2018 Overview: radiation- documented as of this encounter (statuses as of 05/19/2023) [facility] History of Past illness Narrative* Problem Noted Date Diagnosed Date Resolved Date Acute back pain with sciatica, right 10/22/2021 06/04/2022 Testicular cancer 08/17/2018 Overview: radiation- 1980s documented as of this encounter (statuses as of 06/06/2023) [facility] History of Past illness Narrative* Problem Noted Date Diagnosed Date Resolved Date Acute back pain with sciatica, right 10/22/2021 06/04/2022 Testicular cancer 08/17/2018 Overview: radiation- 1980s documented as of this encounter (statuses as of 07/06/2023) [address]22-2022 History of Past illness Narrative* Problem Noted Date Diagnosed Date Resolved Date Acute back pain with sciatica, right 10/22/2021 06/04/2022 Testicular cancer 08/17/2018 Overview: radiation- 1980s documented as of this encounter (statuses as of 07/06/2023) [address]-2022 History of Past illness Narrative* Problem Noted Date Diagnosed Date Resolved Date Acute back pain with sciatica, right 10/22/2021 06/04/2022 Testicular cancer 08/17/2018 Overview: radiation- 1980s documented as of this encounter (statuses as of 07/09/2023) [address]22-2022 History of Past illness Narrative* Problem Noted Date Diagnosed Date Resolved Date Acute back pain with sciatica, right 10/22/2021 06/04/2022 Testicular cancer 08/17/2018 Overview: radiation- 1980s documented as of this encounter (statuses as of 07/09/2023) [address]22-2022 History of Past illness Narrative* Problem Noted Date Diagnosed Date Resolved Date Acute back pain with sciatica, right 10/22/2021 06/04/2022 Testicular cancer 08/17/2018 Overview: radiation- 1980s documented as of this encounter (statuses as of 07/16/2023) [address]-2022 History of Past illness Narrative* Problem Noted Date Diagnosed Date Resolved Date Acute back pain with sciatica, right 10/22/2021 06/04/2022 Testicular cancer 08/17/2018 Overview: radiation- 1980s documented as of this encounter (statuses as of 07/31/2023) [address]22 History of Past illness Narrative* Problem Noted Date Diagnosed Date Resolved Date Acute back pain with sciatica, right 10/22/2021 06/04/2022 Testicular cancer 08/17/2018 Overview: radiation- 1980s documented as of this encounter (statuses as of 08/07/2023) [facility]02-22-2022 History of Past illness Narrative* Problem Noted Date Diagnosed Date Resolved Date Acute back pain with sciatica, right 10/22/2021 06/04/2022 Testicular cancer 08/17/2018 Overview: radiation- 1980s documented as of this encounter (statuses as of 08/11/2023) [facility]12-18-2018 History of Past illness Narrative* Problem Noted Date Resolved Date Testicular cancer 08/17/2018 Overview: radiation- 1980s documented as of this encounter (statuses as of 11/27/2021) [facility]12-[facility]-2018 History of Past illness Narrative* Problem Noted Date Resolved Date Testicular cancer 08/17/2018 Overview: radiation- 1980s documented as of this encounter (statuses as of 12/04/2021) [facility] History of Past illness Narrative* Problem Noted Date Resolved Date Testicular cancer 08/17/2018 Overview: radiation- 1980s documented as of this encounter (statuses as of 12/11/2021) [facility] History of Past illness Narrative* Problem Noted Date Resolved Date Testicular cancer 08/17/2018 Overview: radiation- 1980s documented as of this encounter (statuses as of 12/13/2021) [facility] History of Past illness Narrative* Problem Noted Date Resolved Date Testicular cancer 08/17/2018 Overview: radiation- 1980s documented as of this encounter (statuses as of 12/16/2021) [facility] History of Past illness Narrative* Problem Noted Date Resolved Date Testicular cancer 08/17/2018 Overview: radiation- 1980s documented as of this encounter (statuses as of 12/24/2021) [facility] History of Past illness Narrative* Problem Noted Date Resolved Date Testicular cancer 08/17/2018 Overview: radiation- 1980s documented as of this encounter (statuses as of 03/26/2022) [facility] History of Past illness Narrative* Problem Noted Date Resolved Date Testicular cancer 08/17/2018 Overview: radiation- 1980s documented as of this encounter (statuses as of 04/22/2022) [facility] History of Past illness Narrative* Problem Noted Date Resolved Date Testicular cancer 08/17/2018 Overview: radiation- 1980s documented as of this encounter (statuses as of 04/23/2022) [facility] Bladder pain- Primary Other symptoms involving urinary system Elevated PSA Elevated prostate specific antigen (PSA) [facility] Elevated PSA- Primary Elevated prostate specific antigen (PSA) [facility] Diagnosis Onychomycosis- Primary Dermatophytosis of nail Pain in toe of left foot Pain in limb Pain in toe of right foot Pain in limb Diabetic polyneuropathy associated with type 2 diabetes mellitus (HCC) [facility] Diagnosis Bladder pain- Primary Other symptoms involving urinary system Benign prostatic hyperplasia with nocturia [facility] Diagnosis Elevated PSA- Primary Elevated prostate specific antigen (PSA) Benign prostatic hyperplasia with nocturia [facility] Diagnosis Finger pain, right- Primary Pain in limb [facility]* Diagnosis Type 2 diabetes mellitus without complication, without long-term current use of insulin (HCC)- Primary [facility] Diagnosis Type 2 diabetes mellitus without complication, without long-term current use of insulin (HCC)- Primary Hyperlipidemia, unspecified hyperlipidemia type Benign prostatic hyperplasia with nocturia Prostate cancer (HCC) Malignant neoplasm of prostate Elevated PSA Elevated prostate specific antigen (PSA) Trigger little finger of right hand Trigger finger (acquired) [facility] Diagnosis Onychomycosis- Primary Dermatophytosis of nail Pain in toe of left foot Pain in limb Pain in toe of right foot Pain in limb Diabetic polyneuropathy associated with type 2 diabetes mellitus (HCC) [facility] Prostate cancer (HCC)- Primary Malignant neoplasm of prostate [facility] Diagnosis Bladder outlet obstruction- Primary Bladder neck obstruction Urinary catheter in place Other postprocedural status Gross hematuria Prostate cancer (HCC) Malignant neoplasm of prostate Benign prostatic hyperplasia with nocturia [facility]* Diagnosis Type 2 diabetes mellitus without complication, without long-term current use of insulin (HCC)- Primary [facility] Diagnosis Onychomycosis- Primary Dermatophytosis of nail Pain in toe of left foot Pain in limb Pain in toe of right foot Pain in limb Diabetic polyneuropathy associated with type 2 diabetes mellitus (HCC) Diminished pulses in lower extremity Other symptoms involving cardiovascular system [facility] Diagnosis Benign prostatic hyperplasia with nocturia [facility]* Diagnosis Type 2 diabetes mellitus without complication, without long-term current use of insulin (HCC) Hyperlipidemia, unspecified hyperlipidemia type Benign prostatic hyperplasia with nocturia [facility] Diagnosis Type 2 diabetes mellitus without complication, without long-term current use of insulin (HCC)- Primary Hyperlipidemia, unspecified hyperlipidemia type Prostate cancer (HCC) Malignant neoplasm of prostate Elevated PSA Elevated prostate specific antigen (PSA) Benign prostatic hyperplasia with nocturia Spinal stenosis of lumbar region without neurogenic claudication Spinal stenosis, lumbar region, without neurogenic claudication Chronic low back pain without sciatica, unspecified back pain laterality [facility]* Diagnosis Chronic low back pain without sciatica, unspecified back pain laterality- Primary Spinal stenosis of lumbar region without neurogenic claudication Spinal stenosis, lumbar region, without neurogenic claudication Type 2 diabetes mellitus without complication, without long-term current use of insulin (HCC) Hyperlipidemia, unspecified hyperlipidemia type [facility] Diagnosis Cellulitis of left toe- Primary [facility]* Diagnosis Onychomycosis- Primary Dermatophytosis of nail Pain in toe of left foot Pain in limb Pain in toe of right foot Pain in limb Diabetic polyneuropathy associated with type 2 diabetes mellitus (HCC) documented [facility] Diagnosis Abdominal aortic aneurysm (AAA) without rupture, unspecified part (HCC)- Primary Spinal stenosis, lumbar region, without neurogenic claudication Lumbar radiculopathy Thoracic or lumbosacral neuritis or radiculitis, unspecified [facility]* Diagnosis Spinal stenosis, lumbar region, without neurogenic claudication- Primary Lumbar radiculopathy Thoracic or lumbosacral neuritis or radiculitis, unspecified [facility]* Diagnosis Hyperlipidemia, unspecified hyperlipidemia type Benign prostatic hyperplasia with nocturia Type 2 diabetes mellitus without complication, without long-term current use of insulin ([facility]) documented [facility] this encounter [facility]* Diagnosis Spinal stenosis, lumbar region, without neurogenic claudication- Primary Lumbar radiculopathy Thoracic or lumbosacral neuritis or radiculitis, unspecified Lumbar spondylosis Lumbosacral spondylosis without myelopathy [facility] Diagnosis Onychomycosis- Primary Dermatophytosis of nail Pain in toe of left foot Pain in limb Pain in toe of right foot Pain in limb Diabetic polyneuropathy associated with type 2 diabetes mellitus (HCC) Diminished pulses in lower extremity Other symptoms involving cardiovascular system Lumbar spondylosis Lumbosacral spondylosis without myelopathy Lumbar spondylosis Lumbosacral spondylosis without myelopathy [facility]* Diagnosis Type 2 diabetes mellitus without complication, without long-term current use of insulin (HCC)- Primary Urinary frequency OAB (overactive bladder) Hypertonicity of bladder Prostate cancer (HCC) Malignant neoplasm of prostate 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 Normocytic anemia Anemia, unspecified Encounter for immunization Need for other specified prophylactic vaccination against single bacterial disease Lumbar spondylosis Lumbosacral spondylosis without myelopathy Lumbar spondylosis Lumbosacral spondylosis without myelopathy [facility]* Diagnosis Normocytic anemia- Primary Anemia, unspecified Lumbar spondylosis Lumbosacral spondylosis without myelopathy Lumbar spondylosis Lumbosacral spondylosis without myelopathy [facility] Diagnosis Lumbar spondylosis- Primary Lumbosacral spondylosis without myelopathy Lumbar spondylosis Lumbosacral spondylosis without myelopathy Lumbar spondylosis Lumbosacral spondylosis without myelopathy documented [facility]* Diagnosis Abdominal aortic aneurysm (AAA) without rupture, unspecified part (HCC) Lumbar spondylosis Lumbosacral spondylosis without myelopathy documented [facility]* Diagnosis Spinal stenosis of lumbar region with neurogenic claudication Spinal stenosis, lumbar region, with neurogenic claudication Lumbar spondylosis Lumbosacral spondylosis without myelopathy [facility] Diagnosis Hordeolum externum of right lower eyelid- Primary Hordeolum externum Lumbar spondylosis Lumbosacral spondylosis without myelopathy [facility]* Diagnosis Lumbar spondylosis- Primary Lumbosacral spondylosis without myelopathy Spinal stenosis, lumbar region, without neurogenic claudication Lumbar radiculopathy Thoracic or lumbosacral neuritis or radiculitis, unspecified Lumbar spondylosis Lumbosacral spondylosis without myelopathy [facility]* Diagnosis Onychomycosis- Primary Dermatophytosis of nail Pain in toe of left foot Pain in limb Pain in toe of right foot Pain in limb Diabetic polyneuropathy associated with type 2 diabetes mellitus (HCC) Lumbar spondylosis Lumbosacral spondylosis without myelopathy documented [facility]* Diagnosis Lumbar spondylosis- Primary Lumbosacral spondylosis without myelopathy documented in this encounter [facility] for referral (narrative)* Diagnostic Procedure Only (Urgent) - Closed Specialty Diagnoses / Procedures Referred By Contac t Referred To Contact XR IMAGING Diagnoses Finger pain, right Procedures XR DIGIT GENERAL 3V FRONTAL/LAT/OBL RIGHT RADEX FINGR MINIMUM 2 VIEWS Simon Alvarado APRN.CNP [address] [place] [address] Xr Imaging Referral ID Status Reason Start Date Expiration Date V isits Requested Visits Authorized [id number] Closed Auto-Generate d Referral 03/26/2022 04/25/2023 1 1 [facility] for referral (narrative)* Diagnostic Procedure Only (Routine) - Pending Review Specialty Diagnoses / Procedures Referred By Contac t Referred To Contact US IMAGING Diagnoses Ectatic abdominal aorta (HCC) Procedures US SCREENING FOR AAA (2017) US ABDOMINAL AORTA REAL TIME SCREEN STUDY AAA Yolande Warner MD [address] [place] [address] [facility] [address] Referral ID Status Reason Start Date Expiration Date Visits Requested Visits Authorized [id number] Pending Review Auto-Generat ed Referral 03/07/2024 06/06/2024 1 1 [facility] Reason for Referral Specialty Diagnoses / Procedures Referred By Contac t Referred To Contact Urology Diagnoses Bladder pain Elevated PSA Procedures CONSULT TO UROLOGY OFFICE/OUTPATIENT [facility] 60-74 MINUTES Podlogar, Devan, MARIBETH.SHOOK SPLICER [address] [place] [address] Referral ID Status Reason Start Date Expiration Date Visits Requested Visits Authorized [id number] Authorized PCP Requested Referral 11/27/2021 11/27/2022 1 1 Specialty Diagnoses / Procedures Referred By Contac t Referred To Contact Urology Diagnoses Bladder pain Benign prostatic hyperplasia with nocturia Procedures CONSULT TO UROLOGY OFFICE/OUTPATIENT [facility] 60-74 MINUTES Podlogar, Devan, SOCIETY EDITOR.SHOOK SPLICER [address] [place] [address] Referral ID Status Reason Start Date Expiration Date Visits Requested Visits Authorized [id number] Authorized PCP Requested Referral 12/11/2021 12/11/2022 1 1 Specialty Diagnoses / Procedures Referred By Contac t Referred To Contact Urology Diagnoses Prostate cancer (HCC) Benign prostatic hyperplasia with nocturia Bladder outlet obstruction Procedures CONSULT TO UROLOGY OFFICE/OUTPATIENT [facility] 60-74 MINUTES Yolande Warner MD [address] [place] [address] Referral ID Status Reason Start Date Expiration Date Visits Requested Visits Authorized [id number] Authorized PCP Requested Referral 2 07/10/2023 1 1 Specialty Diagnoses / Procedures Referred By Contac t Referred To Contact Pain Management Diagnoses Chronic low back pain without sciatica, unspecified back pain laterality Spinal stenosis of lumbar region without neurogenic claudication Procedures CONSULT TO PAIN MGT OFFICE/OUTPATIENT [facility] 60-74 MINUTES Yolande Warner MD [address] [place] [address] Referral ID Status Reason Start Date Expiration Date Visits Requested Visits Authorized [id number] Authorized PCP Requested Referral 11/07/2022 11/07/2023 1 1 Specialty Diagnoses / Procedures Referred By Contac t Referred To Contact CT IMAGING Diagnoses Abdominal aortic aneurysm (AAA) without rupture, unspecified part (HCC) Procedures CTA ABD/PEL W IVCON CT ANGIO ABD&PLVIS CNTRST MTRL W/WO CNTRST Bull Bull MD [address] [facility] [address] [place] [address] [address] [address] [facility] Referral ID Status Reason Start Date Expiration Date Visits Requested Visits Authorized [id number] Pending Review Auto-Generat ed Referral 02/19/2023 03/20/2024 1 1 Specialty Diagnoses / Procedures Referred By Contac t Referred To Contact CT IMAGING Diagnoses Abdominal aortic aneurysm (AAA) without rupture, unspecified part (HCC) Procedures CTA ABD/PEL W IVCON CT ANGIO ABD&PLVIS CNTRST MTRL W/WO CNTRST Bull Bull MD [address] [facility] [address] [address] [place] [address] Referral ID Status Reason Start Date Expiration Date V isits Requested Visits Authorized [id number] Closed Auto-Generate d Referral 02/19/2023 03/20/2024 1 1 Specialty Diagnoses / Procedures Referred By Contac t Referred To Contact CT IMAGING Diagnoses Spinal stenosis of lumbar region with neurogenic claudication Procedures CT LUMBAR SPINE WO IVCON CT LUMBAR SPINE W/O CONTRAST MATERIAL Bull Lam MD [address] [address] [place] [address] Referral ID Status Reason Start Date Expiration Date V isits Requested Visits Authorized [id number] Closed Auto-Generate d Referral 01/22/2023 02/21/2024 1 1 Summary Purpose Family History No Family History Records FoundNo Family History Records Found Advance Directives No Advanced Directives Records FoundNo Advanced Directives Records Found Additional Source Comments Source Comments (unrecognize d section and content) In the event this informatio n is protected by the Federal Confidentiality of Alcohol and Drug Abuse Patient Records regulations: The Federal rules restrict any use of the information to criminally investigate or prosecute any alcohol or drug abuse patient.[facility] the event this information is protected by the Federal Confidentiality of Alcohol and Drug Abuse Patient Records regulations: The Federal rules restrict any use of the information to criminally investigate or prosecute any alcohol or drug abuse patient.[facility] the event this information is protected by the Federal Confidentiality of Alcohol and Drug Abuse Patient Records regulations: The Federal rules restrict any use of the information to criminally investigate or prosecute any alcohol or drug abuse patient.[facility] the event this information is protected by the Federal Confidentiality of Alcohol and Drug Abuse Patient Records regulations: The Federal rules restrict any use of the information to criminally investigate or prosecute any alcohol or drug abuse patient.[facility] the event this information is protected by the Federal Confidentiality of Alcohol and Drug Abuse Patient Records regulations: The Federal rules restrict any use of the information to criminally investigate or prosecute any alcohol or drug abuse patient.[facility] the event this information is protected by the Federal Confidentiality of Alcohol and Drug Abuse Patient Records regulations: The Federal rules restrict any use of the information to criminally investigate or prosecute any alcohol or drug abuse patient.[facility] the event this information is protected by the Federal Confidentiality of Alcohol and Drug Abuse Patient Records regulations: The Federal rules restrict any use of the information to criminally investigate or prosecute any alcohol or drug abuse patient.[facility] the event this information is protected by the Federal Confidentiality of Alcohol and Drug Abuse Patient Records regulations: The Federal rules restrict any use of the information to criminally investigate or prosecute any alcohol or drug abuse patient.[facility] the event this information is protected by the Federal Confidentiality of Alcohol and Drug Abuse Patient Records regulations: The Federal rules restrict any use of the information to criminally investigate or prosecute any alcohol or drug abuse patient.[facility] the event this information is protected by the Federal Confidentiality of Alcohol and Drug Abuse Patient Records regulations: The Federal rules restrict any use of the information to criminally investigate or prosecute any alcohol or drug abuse patient.[facility] the event this information is protected by the Federal Confidentiality of Alcohol and Drug Abuse Patient Records regulations: The Federal rules restrict any use of the information to criminally investigate or prosecute any alcohol or drug abuse patient.[facility] the event this information is protected by the Federal Confidentiality of Alcohol and Drug Abuse Patient Records regulations: The Federal rules restrict any use of the information to criminally investigate or prosecute any alcohol or drug abuse patient.[facility] the event this information is protected by the Federal Confidentiality of Alcohol and Drug Abuse Patient Records regulations: The Federal rules restrict any use of the information to criminally investigate or prosecute any alcohol or drug abuse patient.[facility] the event this information is protected by the Federal Confidentiality of Alcohol and Drug Abuse Patient Records regulations: The Federal rules restrict any use of the information to criminally investigate or prosecute any alcohol or drug abuse patient.[facility] the event this information is protected by the Federal Confidentiality of Alcohol and Drug Abuse Patient Records regulations: The Federal rules restrict any use of the information to criminally investigate or prosecute any alcohol or drug abuse patient.[facility] the event this information is protected by the Federal Confidentiality of Alcohol and Drug Abuse Patient Records regulations: The Federal rules restrict any use of the information to criminally investigate or prosecute any alcohol or drug abuse patient.[facility] the event this information is protected by the Federal Confidentiality of Alcohol and Drug Abuse Patient Records regulations: The Federal rules restrict any use of the information to criminally investigate or prosecute any alcohol or drug abuse patient.[facility] the event this information is protected by the Federal Confidentiality of Alcohol and Drug Abuse Patient Records regulations: The Federal rules restrict any use of the information to criminally investigate or prosecute any alcohol or drug abuse patient.[facility] the event this information is protected by the Federal Confidentiality of Alcohol and Drug Abuse Patient Records regulations: The Federal rules restrict any use of the information to criminally investigate or prosecute any alcohol or drug abuse patient.[facility] the event this information is protected by the Federal Confidentiality of Alcohol and Drug Abuse Patient Records regulations: The Federal rules restrict any use of the information to criminally investigate or prosecute any alcohol or drug abuse patient.[facility] the event this information is protected by the Federal Confidentiality of Alcohol and Drug Abuse Patient Records regulations: The Federal rules restrict any use of the information to criminally investigate or prosecute any alcohol or drug abuse patient.[facility] the event this information is protected by the Federal Confidentiality of Alcohol and Drug Abuse Patient Records regulations: The Federal rules restrict any use of the information to criminally investigate or prosecute any alcohol or drug abuse patient.[facility] the event this information is protected by the Federal Confidentiality of Alcohol and Drug Abuse Patient Records regulations: The Federal rules restrict any use of the information to criminally investigate or prosecute any alcohol or drug abuse patient.[facility] the event this information is protected by the Federal Confidentiality of Alcohol and Drug Abuse Patient Records regulations: The Federal rules restrict any use of the information to criminally investigate or prosecute any alcohol or drug abuse patient.[facility] the event this information is protected by the Federal Confidentiality of Alcohol and Drug Abuse Patient Records regulations: The Federal rules restrict any use of the information to criminally investigate or prosecute any alcohol or drug abuse patient.[facility] the event this information is protected by the Federal Confidentiality of Alcohol and Drug Abuse Patient Records regulations: The Federal rules restrict any use of the information to criminally investigate or prosecute any alcohol or drug abuse patient.[facility] HospitalIn the event this information is protected by the Federal Confidentiality of Alcohol and Drug Abuse Patient Records regulations: The Federal rules restrict any use of the information to criminally investigate or prosecute any alcohol or drug abuse patient.[facility]In the event this information is protected by the Federal Confidentiality of Alcohol and Drug Abuse Patient Records regulations: The Federal rules restrict any use of the information to criminally investigate or prosecute any alcohol or drug abuse patient.[facility] the event this information is protected by the Federal Confidentiality of Alcohol and Drug Abuse Patient Records regulations: The Federal rules restrict any use of the information to criminally investigate or prosecute any alcohol or drug abuse patient.[facility]In the event this information is protected by the Federal Confidentiality of Alcohol and Drug Abuse Patient Records regulations: The Federal rules restrict any use of the information to criminally investigate or prosecute any alcohol or drug abuse patient.[facility]In the event this information is protected by the Federal Confidentiality of Alcohol and Drug Abuse Patient Records regulations: The Federal rules restrict any use of the information to criminally investigate or prosecute any alcohol or drug abuse patient.[facility]In the event this information is protected by the Federal Confidentiality of Alcohol and Drug Abuse Patient Records regulations: The Federal rules restrict any use of the information to criminally investigate or prosecute any alcohol or drug abuse patient.[facility]In the event this information is protected by the Federal Confidentiality of Alcohol and Drug Abuse Patient Records regulations: The Federal rules restrict any use of the information to criminally investigate or prosecute any alcohol or drug abuse patient.[facility]In the event this information is protected by the Federal Confidentiality of Alcohol and Drug Abuse Patient Records regulations: The Federal rules restrict any use of the information to criminally investigate or prosecute any alcohol or drug abuse patient.[facility]In the event this information is protected by the Federal Confidentiality of Alcohol and Drug Abuse Patient Records regulations: The Federal rules restrict any use of the information to criminally investigate or prosecute any alcohol or drug abuse patient.[facility]In the event this information is protected by the Federal Confidentiality of Alcohol and Drug Abuse Patient Records regulations: The Federal rules restrict any use of the information to criminally investigate or prosecute any alcohol or drug abuse patient.[facility]In the event this information is protected by the Federal Confidentiality of Alcohol and Drug Abuse Patient Records regulations: The Federal rules restrict any use of the information to criminally investigate or prosecute any alcohol or drug abuse patient.[facility]In the event this information is protected by the Federal Confidentiality of Alcohol and Drug Abuse Patient Records regulations: The Federal rules restrict any use of the information to criminally investigate or prosecute any alcohol or drug abuse patient.[facility]In the event this information is protected by the Federal Confidentiality of Alcohol and Drug Abuse Patient Records regulations: The Federal rules restrict any use of the information to criminally investigate or prosecute any alcohol or drug abuse patient.[facility]In the event this information is protected by the Federal Confidentiality of Alcohol and Drug Abuse Patient Records regulations: The Federal rules restrict any use of the information to criminally investigate or prosecute any alcohol or drug abuse patient.[facility]In the event this information is protected by the Federal Confidentiality of Alcohol and Drug Abuse Patient Records regulations: The Federal rules restrict any use of the information to criminally investigate or prosecute any alcohol or drug abuse patient.[facility] HospitalIn the event this information is protected by the Federal Confidentiality of Alcohol and Drug Abuse Patient Records regulations: The Federal rules restrict any use of the information to criminally investigate or prosecute any alcohol or drug abuse patient.[facility] Reason for Visit (unrecogniz ed section and content) Reason Comments Results Reason Comments 9 week follow up diabetic nail and foot care Reason Comments Urology consult Reason Comments Fax requested Reason Comments Follow Up Reason Comments Finger Pain right pinky finger i nto right palm pain x couple months Reason Comments Orders labs Reason Comments F/U 6 months Reason Comments Established Patient Follow Up nail care Reason Comments Urinary Retention Ongoing issues with urination and issues with catheter causing pain. Reason Comments Appointment Reason Comments Patient Question Reason Comments Established Patient Diabetic Foot Care Reason Comments Refill Request Reason Comments Follow Up 6 month- patient rep orts pain that radiates down back into legs that's been going on for years. 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 Operator - Other Reason Comments Injections Questions Reason Onset Date Comments Refill Request 04/13/2023 Reason Comments Follow Up ADRIANO Low Back Pain Reason Comments Injection Questions Reason Comments Follow Up 6 month Reason Comments Radiology CT Specialty Diagnoses / Procedures Referred By Contac t Referred To Contact CT IMAGING Diagnoses Abdominal aortic aneurysm (AAA) without rupture, unspecified part (HCC) Procedures CTA ABD/PEL W IVCON CT ANGIO ABD&PLVIS CNTRST MTRL W/WO CNTRST IMGES Bull Lam MD [address] [address] [place] [id number] Referral ID Status Reason Start Date Expiration Date V isits Requested Visits Authorized [id number] Closed Auto-Generate d Referral 02/19/2023 03/20/2024 1 1 Specialty Diagnoses / Procedures Referred By Contac t Referred To Contact CT IMAGING Diagnoses Spinal stenosis of lumbar region with neurogenic claudication Procedures CT LUMBAR SPINE WO IVCON CT LUMBAR SPINE W/O CONTRAST MATERIAL Bull Lam MD [address] [employer] [address] [place] [address] [place] [address] Referral ID Status Reason Start Date Expiration Date V isits Requested Visits Authorized [id number] Closed Auto-Generate d Referral 01/22/2023 02/21/2024 1 1 Reason Comments Eye Problem Right eye possible s [place]. X2days. Reason Comments Low Back Pain Follow Up [facility] F/U worked for s hort time. 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 Relationship Specialty Start Date End Date Yolande Warner MD [address] [place] [address] PCP - General Family Practice 08/17/18 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 Relationship Specialty Start Date End Date Yolande Warner MD [address] [place] [address] PCP - General Family Practice 08/17/18 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 Relationship Specialty Start Date End Date Yolande Warner MD [address] [place] [address] PCP - General Family Practice 08/17/18 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 Relationship Specialty Start Date End Date Yolande Warner MD [address] [place] [address] PCP - General Family Practice 08/17/18 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 Relationship Specialty Start Date End Date Yolande Warner MD [address] [place] [address] PCP - General Family Practice 08/17/18 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 Relationship Specialty Start Date End Date Yolande Warner MD [address] [place] [address] PCP - General Family Medicine 08/17/18 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 Relationship Specialty Start Date End Date Yolande Warner MD [address] [place] [address] PCP - General Family Medicine 08/17/18 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 Relationship Specialty Start Date End Date Yolande Warner MD [address] [place] [address] PCP - General Family Medicine 08/17/18 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 Relationship Specialty Start Date End Date Yolande Warner MD [address] [place] [address] PCP - General Family Medicine 08/17/18 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 Relationship Specialty Start Date End Date Yolande Warner MD [address] [place] [address] PCP - General Family Medicine 08/17/18 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 Relationship Specialty Start Date End Date Yolande Warner MD [address] [place] [address] PCP - General Family Medicine 08/17/18 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 Relationship Specialty Start Date End Date Yolande Warner MD [address] [place] [address] PCP - General Family Medicine 08/17/18 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 Relationship Specialty Start Date End Date Yolande Warner MD [address] [place] [address] PCP - General Family Medicine 08/17/18 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 Relationship Specialty Start Date End Date Yolande Warner MD [address] [place] [address] PCP - General Family Medicine 08/17/18 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 Relationship Specialty Start Date End Date Yolande Warner MD [address] [place] [address] PCP - General Family Medicine 08/17/18 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 Relationship Specialty Start Date End Date Yolande Warner MD [address] [place] [address] PCP - General Family Medicine 08/17/18 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 Relationship Specialty Start Date End Date Yolande Warner MD [address] [place] [address] PCP - General Family Medicine 08/17/18 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 Relationship Specialty Start Date End Date Yolande Warner MD [address] [place] [address] PCP - General Family Medicine 08/17/18 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 Relationship Specialty Start Date End Date Yolande Warner MD [address] [place] [address] PCP - General Family Medicine 08/17/18 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 Relationship Specialty Start Date End Date Yolande Warner MD [address] [place] [address] PCP - General Family Medicine 08/17/18 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 Relationship Specialty Start Date End Date Yolande Warner MD [address] [place] [address] PCP - General Family Medicine 08/17/18 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 Relationship Specialty Start Date End Date Yolande Warner MD [address] [place] [address] PCP - General Family Medicine 08/17/18 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 Relationship Specialty Start Date End Date Yolande Warner MD [address] [place] [address] PCP - General Family Medicine 08/17/18 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 Relationship Specialty Start Date End Date Yolande Warner MD [address] [place] [address] PCP - General Family Medicine 08/17/18 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 Relationship Specialty Start Date End Date Yolande Warner MD [address] [place] [address] PCP - General Family Medicine 08/17/18 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 Relationship Specialty Start Date End Date Yolande Warner MD [address] [place] [address] PCP - General Family Medicine 08/17/18 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 Relationship Specialty Start Date End Date Yolande Warner MD [address] [place] [address] PCP - General Family Medicine 08/17/18 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 Relationship Specialty Start Date End Date Yolande Warner MD [address] [place] [address] PCP - General Family Medicine 08/17/18 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 Relationship Specialty Start Date End Date Yolande Warner MD [address] [place] [address] PCP - General Family Medicine 08/17/18 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 Relationship Specialty Start Date End Date Yolande Warner MD [address] [place] [address] PCP - General Family Medicine 08/17/18 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 This clinical summary was aggregated from multiple sources. Caution should be exercised in using it in the provision of clinical care. This summary normalizes information from multiple sources, and as a consequence, information in this document may materially change the coding, format and clinical context of patient data. In addition, data may be omitted in some cases. CLINICAL DECISIONS SHOULD BE BASED ON THE PRIMARY CLINICAL RECORDS. [employer] provides no warranty or guarantee of the accuracy or completeness of information in this document.
== END | disposition home or self-care (01) ==
LOC: LABSPEC 15:40
PROVIDERS: PCP Family Medicine; Referring Provider Urology; Visit Provider Urology
DX: N40.0 Benign prostatic hyperplasia without lower urinary tract symptoms (principal)
CPT/HCPCS: 88305

== ENCOUNTER → 2024-07-15 | Outpatient (CLI) | payer MEDICARE, OTHER, SELFPAY ==
[2024-07-15 08:54] LABS: PSA,Total- Diagnostic < 0.01 ng/mL (0.0-4.0)
== END | disposition home or self-care (01) ==
LOC: LAB 07:59
PROVIDERS: PCP Family Medicine; Referring Provider Student in an Organized Health Care Education/Training Program; Visit Provider Student in an Organized Health Care Education/Training Program
DX: C61 Malignant neoplasm of prostate (principal)
CPT/HCPCS: 36415; 84153

== ENCOUNTER 2024-07-25 09:30 | Outpatient (RCR) | payer MEDICARE, OTHER, SELFPAY ==
--- NOTE | 2024-06-13 18:59 | HP.PTEVAL_ITS ---
Patient's Visit Information Visit Information Visit Information: TANISHA SALTER is a 84 year old M referred to Physical Therapy by Dr. Deven Johnson MD with a diagnosis of BACK PAIN AND BALANCE. Date of Evaluation: 06/13/24 Physical Therapist: Erna Flower PT, Cert MDT Visit Plan Frequency: 2-3x /Week Duration: 4-6 Weeks Plan: AQUATIC THERAPY FOR PAIN RELEIF, POSTURE CORRECTION/STRENGTHENING, INS TRUCTION IN APPROPRIATE BODY MECHANICS AND ACTIVITY MODIFICATIONS. DLS WITH A NEUTRAL SPINE TOLERATED. CATHERINE LE ROM, STRETCHING AND STRENGTHENING. HEP INSTRUCTION. Subjective Subjective: Work/Leisure: RETIRED Present symptoms: CATHERINE LOW BACK PAIN R > L. CATHERINE THIGH PAIN. Present since: YEARS AGO Pain Scale: WORST 7/10, LEAST 0/10 Currently: 0/10 Is it getting better, worse or staying the same: STAYING THE SAME Commenced as a result of: NO APPARENT REASON Symptoms at onset: UNSURE Worse: WASHING DISHES, STANDING, WALKING Better: SITTING, LYING DOWN Disturbed sleep: NO Previous history/Previous treatment: MASSAGE, PHYSICAL THERAPY (INCREASED PAIN) AND CHIROPRACTIC WITH LAST VISIT BEING YEARS AGO (WITH BENEFIT). NO BACK SURGERY. 2 ADRIANO'S AND 4 BLOCKS WITHOUT BENEFIT - LAST PROCEEDURE WAS A FEW WEEKS OR SO AGO. BACK SURGERY RECOMMENDED IN THE PAST AND PATIENT REPORTS HE DECLINED. Treatment this episode: NOT CURRENTLY ON ANYTHING FOR HIS BACK PER PATIENT REPORT. Coughing/sneezing/straining: NEGATIVE FOR INCREASED PAIN. Gait: TIME AND DISTANCE LIMITED BY BACK AND LEG PAIN. USES CANE NEEDED FOR STABILITY RECENT LAST WEEK FOR UNFAMILAR PLACE. DENIES ANY FALLS. Bowel or Bladder Dysfunction: H/O BLADDER CANCER. DOES HAVE SOME URINARY LEAKING. DOES NOT HAVE BOWEL INCONTINENCE. Unexplained weight loss: NO Imaging: PATIENT DOES NOT RECALL THE LAST TIME HE HAD IMAGING OF HIS LOW BACK. PMH/Recent major surgery: H/O BLADDER CANCER TREATED WITH TERP PROCEEDURE 2022. RADIATION FOR PROSTATE CANCER 2021. Diabetes Arthritis High cholesterol Back pain Testicular cancer S/P TURP (status post transurethral resection of prostate) Hx of cystoscopy Hx of knee surgery History of removal of testicle Objective Objective: Standing Posture: R LATERAL SHIFT Other Observations: THIS PATIENT AMBULATES INDEP'LY INTO PT IN R LATERAL SHIFT, FH, WITHOUT ANY AD'S, FAIR CADANCE AND WITHOUT LOB. HE IS INDEP WITH TRANSFERS AND A GOOD HISTORIAN. HE REPORTS HE IS HERE BECAUSE HE LIKES DR. JOHNSON AND DR. JOHNSON RECOMMENDED IT AND HIS DAUGHTER WANTS HIM TO TRY IT. Sensory deficit: CATHERINE LE LIGHT TOUCH SENSATION GROSSLY INTACT. ROM deficit: VERY TIGHT CATHERINE LE HS AND GASTROC-SOLEUS COMPLEX'S. Motor deficit: CATHERINE HIPS GROSSLY 4-/5, KNEES 4-/5, ANKLES 4/5. Lumbar mvmt loss: flex - MOD TO BABAR ext - BABAR R SG - BABAR L SG - MOD Core strength: POOR Palpation: PATIENT DENIES PAIN WITH THORACIC, LUMBAR AND SACRAL REGION PALPATION. TUG TEST: 10.10 SEC WITHOUT AD. 30 STS TEST WITH CATHERINE UE ASSIST = 10. SLS - PATIENT IS UNABLE TO SLS MORE THAN 1-2 SEC ON EA LE WITHOUT UE ASSIST. TANDEM STANCE. PATIENT IS ABLE TO TANDEM STANCE WITH EA LE IN FRONT OF THE OTHER IN STATIC POSITION WITHOUT UE ASSIST X > 5 SEC EA BUT UNABLE TO TANDEM WALK. Balance/Special Test Scores Oswestry Low Back Score: 17 Goals Goal 1:: DECREASE C/O BACK AND LE SX'S BY AT LEAST 50% TO EASE ADL'S. Goal Time Frame: 4-6 Weeks Goal 2:: PATIENT WILL BE ABLE TO COMPLETE 12 STS IN 30 SEC WITHOUT UE ASSIST TO DEMONSTATE INCREASED LE STRENGTH Goal Time Frame: 4-6 Weeks Goal 3:: PATIENT WILL BE INDEP WITH A WATER EX PROGRAM Goal Time Frame: 4-6 Weeks Rehabilitation Potential Physical Therapy Diagnosis: CORE STIFFNESS AND WEAKNESS. LOW BACK AND THIGH PAIN LIMITING STANDING AND WALKING FUNCTION WHICH LIMITS ADL'S. Rehabilitation Potential: Fair Anticipated Interventions Patient/Client Instruction: Educate patient on: Condition, Plan of Care and Risk Factors For the Purpose of:: To improve self management Therapeutic Exercise to Include: Strength training, Body mechanics, Postural training, Flexibilty training, Gait and locomotor training, Neuromotor development, In an aquatic setting and Dynamic Lumbar Stabilization For the Purpose of:: To decrease pain, To improve muscle performance and motor function, To increase tolerance to activity/condition/position, To improve ability of physical actions for home/community/work/leisure, To improve gait and locomotor functions, To increase flexibility/ROM and To improve self management Text: Thank you for the opportunity to evaluate your patient. For Medicare and Medicare HMO plans, please review the plan of care and approve it. It will need to be FAXED BACK to us at [phone] for Medicare purposes. For Medicare only, by signing this I certify the plan of care. Please let me know if there are questions or concerns regarding this plan of care. Physician Signature: Date:
--- NOTE | 2024-07-25 10:45 | HP.PTDCSUM_ITS ---
Discharge Summary D/C summary: It has been my pleasure to treat TANISHA SALTER referred by Dr. Deven Johnson MD, with the diagnosis of BACK PAIN AND BALANCE for a total of 8 visit(s). Discharge Date: 07/25/24 Please see the following information for a summary of their discharge status. Subjective Subjective: PATIENT STATES IN THE WATER IT FELT GREAT BUT WHEN I GET OUT AND GET BACK TO MY NORMAL ROUTINE OF WALKER THE PAIN COMES BACK. PATIENT REPORTS HE CAN DO THE EX'S IN THE WATER NO PROBLEM. I LIKED IT. I ENJOYED IT. IT FELT GOOD. EVEN WHEN I CAME OUT I FELT PRETTY GOOD FOR AWHILE. HE REPORTS STATES HE HAS THE SHEET OF EX'S AND HE IS GOING TO CONTINUE DOING THEM EITHER HERE AT [employer] OR AT THE [employer] WITH HIS [employer] MEMBERSHIP AND HE WANTS TO CONTINUE ON HIS OWN NOW. PATIENT REPORTS THE Meloxicam and Shots haven't helped. PATIENT STATES DR. JOHNSON TOLD HIM HE MIGHT NEED AN OPERATION BUT PATIENT REPORTS HE DOES NOT WANT IT AT HIS AGE. Pain Back: Pain Intensity (Out of 10): 6 Overall Improvement % Improvement: 0 Objective Objective/Function: PATIENT WAS SEEN TODAY FOR RE-ASSESSMENT OF PROGRESS TOWARD THE SET PT GOALS AND THE NEED FOR FURTHER PHYSICAL THERAPY VS READINESS FOR DISCHARGE. THIS PATIENT RESPONDED WELL TO AQUATIC THERAPY BUT HE REPORTS THE PAIN RELIEF IS TEMPORARY. TESTING SHOWS SOME IMPROVEMENT IN GAIT AND BALANCE UPON EXAM TODAY: THIS PATIENT AMBULATES INDEP'LY INTO PT TODAY WITH QUAD CANE. HE REPORTS HE HAS HAD THE CANE SINCE BEFORE STARTING PT AND HE USES IT INTERMITTENTLY TO TAKE PRESSURE OFF HIS BACK. Lumbar mvmt loss: flex - MOD ext - BABAR R SG - MOD L SG - MOD TUG TEST: 9.30 SEC WITHOUT AD. 30 STS TEST WITH CATHERINE UE ASSIST = 12. SLS X 12 SEC L LE, 15 SEC R LE. TANDEM STANCE. PATIENT IS ABLE TO TANDEM STANCE BUT STILL UNABLE TO TANDEM WALK. Goals Goal 1:: DECREASE C/O BACK AND LE SX'S BY AT LEAST 50% TO EASE ADL'S. Goal Progress: Not Met Goal 2:: PATIENT WILL BE ABLE TO COMPLETE 12 STS IN 30 SEC WITHOUT UE ASSIST TO DEMONSTATE INCREASED LE STRENGTH Goal Progress: Goal Met Goal 3:: PATIENT WILL BE INDEP WITH A WATER EX PROGRAM Goal Progress: Goal Met Plan Plan: D/C TO INDEP WATER AND HOME EX'S. D/C Information d/c sentence: If there are questions or concerns regarding this patient's physical therapy, please feel free to call me at [phone]. Thank you for the referral of this patient. Sincerely, Erna Flower, PT, Cert MDT Balance/Gait/Functional tests Balance/Special Test Scores Oswestry Low Back Score: 14 Improvement % Improvement: 0
== END 2024-07-25 19:00 | disposition home or self-care (01) ==
LOC: PT 09:30
PROVIDERS: PCP Family Medicine; Referring Provider Anesthesiology Pain Medicine; Visit Provider Anesthesiology Pain Medicine
DX: M54.9 Dorsalgia, unspecified (principal); R26.89 Other abnormalities of gait and mobility
CPT/HCPCS: 97113; 97162; 97530

== ENCOUNTER → 2024-11-10 | Outpatient (CLI) | payer MEDICARE, OTHER, SELFPAY ==
--- NOTE | 2024-11-10 08:13 | MRI_ITS ---
PROCEDURE: MRI lumbar spine without IV contrast REASON FOR EXAM: PAIN TECHNIQUE: Multisequence multiplanar MR images of the lumbar spine were obtained without the administration of intravenous contrast. Imaging sequences were performed to best display suspected pathology. COMPARISON: None. FINDINGS: Vertebral body heights are within normal limits. Negative for fracture or marrow replacement. Mild degenerative endplate edema at L2-3. Mild dextroscoliosis. Degenerative grade 1 anterolisthesis of L2-3. Conus medullaris is within normal limits and terminates at L1. Mild paraspinal muscle atrophy. L1-2: Minimal posterior disc bulge. Mild bilateral facet arthrosis and ligamentum flavum hypertrophy. No significant spinal stenosis. Mild left foraminal narrowing. L2-3: Grade 1 anterolisthesis with uncovering of the disc. Superimposed mild posterior disc bulge. Severe bilateral facet arthrosis and ligamentum flavum hypertrophy. Severe spinal stenosis with narrowing of the thecal sac measuring 5 mm. Mild/moderate right and moderate/severe left foraminal narrowing. L3-4: Posterior disc bulge. Moderate bilateral facet arthrosis. Ligamentum flavum hypertrophy. Mild/moderate spinal stenosis. Moderate bilateral foraminal narrowing. L4-5: Mild posterior disc bulge eccentric to the right. Mild bilateral facet arthrosis and ligamentum flavum hypertrophy. No significant spinal stenosis. Mild narrowing of the right lateral recess. Mild right foraminal narrowing. L5-S1: Minimal posterior disc bulge. Mild bilateral facet arthrosis. No significant spinal stenosis or foraminal narrowing. MRI/Spine Lumbar (Routine) IMPRESSION: 1. Acquired severe spinal stenosis at L2-3. 2. Acquired mild/moderate spinal stenosis at L3-4. 3. Varying degrees of acquired multilevel foraminal narrowing, greatest on the left at L2-3. 4. Grade 1 anterolisthesis of L2-3. Mild dextroscoliosis. Reading Location: [place]
== END | disposition home or self-care (01) ==
LOC: MRI 07:41
PROVIDERS: PCP Family Medicine; Referring Provider Orthopaedic Surgery Orthopaedic Surgery of the Spine; Visit Provider Orthopaedic Surgery Orthopaedic Surgery of the Spine
DX: M54.16 Radiculopathy, lumbar region (principal)
CPT/HCPCS: 72148

== ENCOUNTER 2025-01-23 14:51 | Emergency (ER) | payer MEDICARE, OTHER, SELFPAY ==
[2025-01-23 14:51] VITALS: BP 143/67; PULSE 84; RESP 14; TEMP 36.1; O2SAT 98; BMI 25.9
--- NOTE | 2025-01-23 15:10 | CT_ITS ---
PROCEDURE: ABDOMEN/PELVIS WITHOUT CONT 01/23/2025 REASON FOR EXAM: KIDNEY STONE TECHNIQUE: Abdomen and pelvis CT without intravenous contrast. Noncontrast technique limits evaluation of the abdominal and pelvic viscera. Coronal and Sagittal reconstruction series were provided. One or more dose reduction techniques were used (e.g., Automated exposure control, adjustment of the mA and/or kV according to patient size, use of iterative reconstruction technique). PATIENT PREPARATION: Per protocol ORAL CONTRAST TYPE: None. COMPARISON: None. FINDINGS: Lung bases: Bibasilar atelectasis. Tiny scattered pulmonary nodules (for example within the right lower lobe series 2, image 14). Severe coronary artery calcifications. Liver: The unopacified liver is normal in size. No biliary ductal dilation. Gallbladder: No radiopaque stones within the gallbladder. Spleen: Normal in size. Pancreas: The unopacified pancreas is unremarkable. Adrenals: No adrenal mass. Kidneys: No hydronephrosis or nephrolithiasis. Bladder: Minimally distended. Reproductive Organs: Prior TURP. Bowel: The bowel loops are normal in caliber. No ascites or pneumoperitoneum. No inflammatory mass in the expected region of the appendix. Lymph nodes: Visualization is limited without the use of IV contrast. No large lymphadenopathy. Vasculature: Moderate mixed atherosclerotic plaque throughout the aortoiliac vessels. Bones: Thoracolumbar spondylosis. Mild compression deformities of the lumbar vertebral bodies. Severe degenerative disc disease. CT/Abdomen/Pelvis without Cont IMPRESSION: 1. No acute abdominopelvic finding. 2. Scattered tiny pulmonary nodules, likely scarring or noncalcified granulomas . Comparison to prior imaging recommended. If no imaging available, follow-up CT chest in 1 month is recommended to evaluate for stability. Reading Location: [id number]
--- NOTE | 2025-01-23 15:11 | ED.VIS.GI ---
HPI HPI - GI History of Present Illness Chief Complaint: Abd Pain Informant: patient and family Narrative Narrative: Your daughter for evaluation pain right side abdomen started 2 hours ago. Intermittent sharp twinge sensations multiple episodes currently has no symptoms. No urinary symptoms. No fever or chills. States prostate cancer with prostatectomy in the past with radioactive seeding. Left testicular removal secondary to cancer. No history of kidney stones. No nausea or vomiting. States they looked up right sided symptoms appendicitis was noted. Kidney stones were noted. They are here for evaluation. Prior similar symptoms: No PFSH PFSH Medical History Indwelling urethral catheter present Constipation Wears dentures Cancer Diabetes Arthritis High cholesterol Back pain Testicular cancer Home Medications ?Medication ?Instructions ?Recorded ?Last Taken ?Type metformin 500 mg tablet,extended 500 mg PO DAILY 09/07/18 Unknown History release 24 hr Tamsulosin Hcl 0.4 mg PO DAILY 07/13/23 Unknown History lisinopril 5 mg tablet 5 mg PO DAILY 01/11/24 Unknown History aspirin 81 mg chewable tablet 81 mg PO QDAY 07/18/24 Unknown History meloxicam 7.5 mg tablet 7.5 mg PO QDAY 07/18/24 Unknown History rosuvastatin 20 mg tablet 20 mg PO QDAY 07/18/24 Unknown History Allergy/AdvReac Type Severity Reaction Status Date / Time Sulfa (Sulfonamide Allergy Fever and Verified 01/23/25 14:51 Antibiotics) skin rash Tetanus Vaccines and Toxoid Allergy Rash Verified 01/23/25 14:51 meperidine (From Demerol) AdvReac Vomiting Verified 01/23/25 14:51 Family History Father Heart disease Diabetes Mother Myocardial infarction Alzheimer disease Grandmother Cancer Sister Breast cancer Surgical History S/P TURP (status post transurethral resection of prostate) Hx of cystoscopy Hx of knee surgery History of removal of testicle Social History Smoking Status: Former smoker pack-years: 30 Tobacco: How many years used: 30 alcohol intake: current alcohol intake frequency: holidays/special occasions only substance use type: does not use diet: diabetic ROS ROS ED Constitutional Constitutional ED: Denies fever(s) Cardiovascular Cardiovascular: Denies chest pain Respiratory/Chest Respiratory/Chest: Denies cough Gastrointestinal Gastrointestinal: Reports abdominal pain; Denies diarrhea or vomiting Genitourinary Genitourinary ED: Denies dysuria, hematuria or urinary frequency Musculoskeletal Musculoskeletal: Denies none Integumentary Denies rash or wounds Neurologic Neurologic: Denies weakness EXAM Physical Exam Const Vital Signs: 01/23/25 14:51 Temperature 97 F L Temperature Source Temporal Pulse Rate 84 Respiratory Rate 14 Blood Pressure 143/67 H Blood Pressure Mean 92 Pulse Ox 98 Oxygen Delivery Method Room Air Positive well nourished and well developed General Appearance ED: well developed and NAD HEENT Reports moist mucous membranes normocephalic and atraumatic Eyes General Eye ED: Yes normal appearance of both eyes Neck full ROM Chest Wall Chest: Negative for tenderness Resp normal respiratory effort and normal air movement Effort and Inspection: symmetric chest movement; Negative for respiratory distress Cardio regular rate, regular rhythm and no murmurs Peripheral Pulses: pulses 2+ throughout GI normal to inspection, nondistended, normoactive bowel sounds and non-tender GI Narrative: Negative Bartlett's or McBurney's tenderness. Palpation: Negative for guarding or rebound tenderness present Back/Spine no CVA tenderness Extremity normal to inspection General Extremety ED: Negative for edema or tenderness General Extremity: Negative for edema Neuro oriented x3 and no sensory deficits noted Sensorium / Orientation: awake and alert Skin no rashes or lesions noted and no wounds MDM MDM MDM Narrative Medical decision making narrative: Interventions / MDM: Differential diagnosis: Nonspecific abdominal pain, pulmonary nodules Diagnosis considered but do not suspect: Appendicitis, kidney stones however CT negative. My EKG interpretation: N/A Imaging independently reviewed and interpreted by myself: CT abdomen pelvis: No obstructive kidney stones no inflammatory changes around the appendix. Multiple tiny scattered nodules lower lobes also read by radiology. External documents reviewed: N/A Test considered but not ordered:N/A ED course: Currently symptom-free vital stable nonsurgical abdomen. Intermittent twinges of pain right side of abdomen. Discussed possibility of kidney stones early symptoms this time. Will check basic labs urine, flank CT ordered. Result negative for any intra-abdominal process. Scattered tiny pulmonary nodules. Discussed results with the patient. Remote tobacco years ago. Discussed outpatient follow-up with PCP for further imagings. Discussed monitoring recurrent abdominal pains fevers for return precautions. All questions were answered. Re-evaluation: stable Disposition discussed with patient/family/significant other: Patient and daughter Case discussed with consulting clinician: N/A This note was generated with [employer] dictation software. It may contain incorrect words, spelling, and punctuation that were not noted in checking the note before signing. Lab Data Attestation: I reviewed the patient's lab results. Labs: Laboratory Results - last 24 hr 01/23/25 01/23/25 15:06 15:40 WBC 5.5 RBC 4.02 L Hgb 12.2 L Hct 36.2 L MCV 90.0 MCH 30.3 MCHC 33.7 RDW Std Deviation 43.0 RDW Coeff of Daisy 13.2 Plt Count 204 MPV 8.6 Immature Gran % (Auto) 0.400 Neut % (Auto) 64.7 Lymph % (Auto) 22.7 Ponce % (Auto) 9.5 Eos % (Auto) 2.0 Baso % (Auto) 0.7 Absolute Neuts (auto) 3.5 Absolute Lymphs (auto) 1.24 Nucleated RBC % 0 Sodium 134 Potassium 4.4 Chloride 101 Carbon Dioxide 21.1 Anion Gap 12 BUN 15 Creatinine 1.01 Estim Creat Clear Calc 59.76 Est GFR (MDRD) Non-Af 73 BUN/Creatinine Ratio 14.7 Glucose 129 H Calcium 9.3 Urine Color Yellow Urine Clarity Clear Urine pH 6.0 Ur Specific [place] 1.015 Urine Protein 30 H Urine Glucose (UA) Normal Urine Ketones Negative Urine Occult Blood Negative Urine Nitrite Negative Urine Bilirubin Negative Urine Urobilinogen Normal Ur Leukocyte Esterase 25 H Urine RBC 0 SEEN Urine WBC 0-5 SEEN Ur Squamous Epith Cells 0-5 SEEN Urine Bacteria 0 SEEN Urine Mucus 0 SEEN Radiography Diagnostic Testing: Clinical Impression(s) from Imaging Studies Abdomen/Pelvis CT 01/23/25 15:10 IMPRESSION: 1. No acute abdominopelvic finding. 2. Scattered tiny pulmonary nodules, likely scarring or noncalcified granulomas. Comparison to prior imaging recommended. If no imaging available, follow-up CT chest in 1 month is recommended to evaluate for stability. Reading Location: [facility] Discharge Plan Triage Chief Complaint: Abd Pain ED Provider: Yomi Velazco Dx/Rx/DC Orders Clinical Impression: Abdominal pain, Incidental pulmonary nodule Instructions: Abdominal Pain, ED Pulmonary Nodule, Solitary Prescriptions: No Action lisinopril 5 mg tablet 5 mg PO DAILY meloxicam 7.5 mg tablet 7.5 mg PO QDAY aspirin 81 mg tablet,chewable 81 mg PO QDAY rosuvastatin 20 mg tablet 20 mg PO QDAY metformin 500 MG tablet 500 mg PO DAILY Tamsulosin Hcl 0.4 MG capsule 0.4 mg PO DAILY Primary Care Provider: Perfecto Warner Referrals: Perfecto Warner MD [Primary Care Provider] - 1 Week Activity Restrictions/Additional Instructions: No inflammation around your appendix no kidney stones on CT. Incidental findings of tiny pulmonary nodules on CT scan. Recommend follow-up with your PCP outpatient imagings to evaluate nodules and to follow-up. Print Language: Syriac Disposition Disposition: Home, Self Care Discharge Date/Time: 01/23/25 17:00
[2025-01-23 15:28] LABS: Absolute Lymphocyte Count 1.24 X10^3/uL (0.83-4.51); Absolute Neutrophil Count 3.5 X10^3/uL (2.0-7.7); Basophil# 0.04 X10^3/uL; Basophil% 0.7 % (0-1); Eosinophil# 0.11 X10^3/uL; Hematocrit 36.2 % (40-54); Hemoglobin 12.2 g/dL (13.0-16.5); Lymphocyte # 1.24 X10^3/ul (0.83-4.51); Lymphocyte % 22.7 % (19-41); Mean Corp Hgb Conc 33.7 g/dL (32-36); Mean Corpuscular Hgb 30.3 pg (27.0-32.0); Mean Platelet Vol. 8.6 fl (6.2-12.0); Monocyte# 0.52 X10^3/uL; Monocyte% 9.5 % (0-10); NRBC Flagged by Analyzer 0 % (0-5); Neutrophil # 3.53 X10^3/uL (2.7-7.7); Neutrophil % 64.7 % (47-70); Platelet Count 204 K/mm3 (150-450); RBC Distribution Width CV 13.2 % (11.6-14.6); Red Blood Count 4.02 M/mm3 (4.6-6.2); White Blood Count 5.5 K/mm3 (4.4-11.0)
[2025-01-23 15:50] LABS: Anion Gap 12 (5-15); BUN 15 mg/dL (4-19); BUN/Creat Ratio 14.7 RATIO (10-20); Calcium,Total 9.3 mg/dL (7.6-11.0); Carbon Dioxide 21.1 mmol/L (21.0-32.0); Chloride 101 mmol/L (98-108); Creatinine, Serum 1.01 mg/dL (0.70-1.20); EST Glomerular Filtration Rate 73 (>60); Estimated Creatinine Clearance 59.76 ml/min (50-250); Glucose 129 mg/dL (70-99); Potassium 4.4 mmol/L (3.3-5.1); Sodium Level 134 mmol/L (133-145)
[2025-01-23 15:52] LABS: Bacteria 0 SEEN /hpf (None Seen); Mucous, Urine 0 SEEN /hpf (<or=2+); Red Blood Cells-Urine 0 SEEN /hpf (0-5)
[2025-01-23 15:53] LABS: Color, Urine Yellow (Yellow); Glucose, Dipstick Normal (Normal); Ketone-Dipstick Negative (Negative); Leukocyte Esterase-Dipstick 25 /ul (Negative); Nitrite-Dipstick Negative (Negative); Occult Blood-Urine Negative /ul (Negative); Protein-Dipstick 30 mg/dl (Negative); Specific Gravity, Urine 1.015 (1.002-1.030); Urine Bilirubin Dipstick Negative (Negative); Urine Clarity Clear (Clear); Urine Urobilinogen Normal (Normal)
[2025-01-23 16:03] LABS: Squamous Epithelial Cells - UA 0-5 SEEN /hpf (0-5); White Blood Cells 0-5 SEEN /hpf (0-5)
== END 2025-01-23 17:00 | disposition home or self-care (01) ==
PROVIDERS: Emergency Provider Emergency Medicine; PCP Family Medicine; Visit Provider Emergency Medicine
DX: R10.9 Unspecified abdominal pain (principal); E11.9 Type 2 diabetes mellitus without complications; R91.8 Other nonspecific abnormal finding of lung field; E78.00 Pure hypercholesterolemia, unspecified; Z79.84 Long term (current) use of oral hypoglycemic drugs; Z79.899 Other long term (current) drug therapy; Z87.891 Personal history of nicotine dependence
CPT/HCPCS: 74176; 80048; 81001; 85025; 87086; 99283; A4216

== ENCOUNTER → 2025-02-10 | Outpatient (CLI) | payer MEDICARE, OTHER, SELFPAY ==
[2025-02-10 09:34] LABS: PSA,Total- Diagnostic < 0.02 ng/mL (0.00-4.00)
== END | disposition home or self-care (01) ==
PROVIDERS: PCP Family Medicine; Referring Provider Student in an Organized Health Care Education/Training Program; Visit Provider Student in an Organized Health Care Education/Training Program
DX: C61 Malignant neoplasm of prostate (principal); C77.5 Secondary and unspecified malignant neoplasm of intrapelvic lymph nodes
CPT/HCPCS: 36415; 84153

== ENCOUNTER 2025-03-10 00:30 | Emergency (ER) | payer MEDICARE, OTHER, SELFPAY ==
[2025-03-10 00:32] VITALS: BP 139/75; PULSE 64; RESP 18; TEMP 36.3; O2SAT 99; BMI 25.5
--- OUTSIDE RECORDS SUMMARY | 2025-03-10 01:01 | XMS RPT_ITS | CCD ---
Author Organization [facility] CliniSymt Care Team Providers Care Disaster Or Damage Control Specialist Name Role Phone Alana CHAVEZ, Yolande Pastor Primary Care Provider Alana, Dr. Grove Primary Care Provider [phone] Dr. Jose You Attending Provider Katharine, Dr. Parish Montoya Referring Provider Alana CHAVEZ, Yolande Pastor Primary Care Provider Dr. Perfecto Warner Referring Provider Dr. Jose You Referring Provider Dr. Perfecto Warner Primary Care Provider Dr. Jose You Attending Provider Dr. Magdi Desir Attending Provider Katharine, Dr. Parish Montoya Referring Provider [phone] Yolande Warner MD Primary Care Provider Yolande Warner MD Primary Care Provider Dr. Perfecto Warner Primary Care Provider [phone] Dr. Jose You Attending Provider Dr. Jose You Referring Provider Dr. Magdi Desir Attending Provider Dr. Parish Lundberg Referring Provider Dr. Perfecto Warner Referring Provider [phone] Dr. Perfecto Warner Primary Care Provider Dr. Jose You Attending Provider KATHARINE CHAVEZ, DR PARISH MONTOYA Attending Kaylee Warner MD, Yolande Pastor Primary Care Provider Podlogar RIGGER THIRD.PUBLIC HEALTH PROGRAM MANAGERHaydee Unavailable Knoble RIGGER THIRD.PUBLIC HEALTH PROGRAM MANAGERDestiny Unavailable ALANA, CHRISTOPHER B Primary Care Unavailab le LAM, BULL Attending Unavailable LAM, BULL Attending Unavailable LAM, BULL Admitting Unavailable BURSLEY, CHRISTOPHER B Primary Care Unavailab le BURSLEY, CHRISTOPHER B Primary Care Unavailab le BURSLEY, CHRISTOPHER B Referring Unavailab chris Warner MD, Dr. Grove Primary Care Provider Elizabeth CHAVEZ, Dr. Cravalho Attending Provider Elizabeth CHAVEZ, Dr. Carvalho Referring Provider Alana CHAVEZ, Dr. Grove Referring Provider Burt CHAVEZ, Dr. Dorman Attending Provider Low CHAVEZ, Dr. Singleton Attending Provider Burt CHAVEZ, Dr. Dorman Referring Provider Knoble RIGGER THIRD.PUBLIC HEALTH PROGRAM MANAGERDestiny Unavailable Knoble RIGGER THIRD.PUBLIC HEALTH PROGRAM MANAGER, Destiny Unavailable Alana CHAVEZ, Dr. Grove Primary Care Provider Burt CHAVEZ, Dr. Domran Attending Provider Alana CHAVEZ, Dr. Grove Referring Provider Dr. Yomi Velazco DO Emergency Provider Dr. Yomi Velazco DO Attending Provider Dr. Jose You DO Attending Provider Dr. Jose You DO Referring Provider Dandy Dallas Attending Unavailable Alana, Perfecto Primary Care Unavailable Alana, Perfecto Referring Unavailable Alana, Perfecto Primary Care Unavailable Perfecto Warner Referring Unavailable Jose You Attending Unavailable Dandy Dallas Attending Unavailable Bursley, Perfecto Primary Care Unavailable Bursley, Perfecto Referring Unavailable Bursley, Perfecto Primary Care Unavailable Jose You Attending Unavailable Bursley, Perfecto Primary Care Unavailable Jose You Attending Unavailable Jose You Referring Unavailable Bursley, Perfecto Primary Care Unavailable Mani Kelsey Attending Unavailable Dandy Dallas Attending Unavailable Bursley, Perfecto Primary Care Unavailable Dandy Dallas Referring Unavailable Bursley, Perfecto Primary Care Unavailable Yomi Velazco Attending Unavailable Deven Abraham Attending Unavailable Deven Abraham Referring Unavailable Bursley, Perfecto Primary Care Unavailable Bursley, Perfecto Primary Care Unavailable Jose You Attending Unavailable Jose You Referring Unavailable Daphne RIGGER THIRD.PUBLIC HEALTH PROGRAM MANAGER, Destiny Unavailable YOLANDE WARNER Primary Care Unavailab le TESTLUCINDA BELL Referring Unavailable LUCINDA KOHLER Attending Unavailable ANTHONY HERNANDEZ Attending Unavailable QUITA WARNERER B Primary Care Unavailab le HANNAHLEY, CHRISTOPHER B Primary Care Unavailab le HANNAHLEY, CHRISTOPHER B Referring Unavailab le HANNAHLEY, CHRISTOPHER B Primary Care Unavailab le SELF Referring Unavailable ALANA, MAXIMOPHER B Attending Unavailab le ALANA, CHRISTOPHER B Primary Care Unavailab KAMLA Boles Referring Unavailable HANNAHLEY, CHRISTOPHER B Primary Care Unavailab le BURSLEY, CHRISTOPHER B Primary Care Unavailab le BURSLEY, CHRISTOPHER B Referring Unavailab le BURSLEY, CHRISTOPHER B Primary Care Unavailab le HANNAHLEY, CHRISTOPHER B Referring Unavailab le BURSLEY, CHRISTOPHER B Primary Care Unavailab le BURSLEY, CHRISTOPHER B Referring Unavailab le BURSLEY, CHRISTOPHER B Primary Care Unavailab le BURSLEY, CHRISTOPHER B Referring Unavailab le BURSLEY, CHRISTOPHER B Primary Care Unavailab le HANNAHLEY, CHRISTOPHER B Primary Care Unavailab DEVORA Monae Attending Unavailabl e QUITA WARNERER B Primary Care Unavailab DIANNA Landin Referring Unavailable DIANNA VALENCIA Attending Unavailable ALANA, CHRISTOPHER B Primary Care Unavailab le DIANNA VALENCIA Referring Unavailable ALANA, MAXIMOPHER B Primary Care Unavailab le TESTRALUCINDA TIAN Referring Unavailable TESTRAKE, LUCINDA Attending Unavailable YOLANDE WARNER Primary Care Unavailab le TESTRAKE, LUCINDA Referring Unavailable TESTRAKE, LUCINDA Attending Unavailable YOLANDE WARNER Primary Care Unavailab YOLANDE Umana Primary Care Unavailab le YOLANDE WARNER Primary Care Unavailab le TESTRAKE, LUCINDA Referring Unavailable TESTRAKE, LUCINDA Attending Unavailable YOLANDE WARNER Primary Care Unavailab chris ROCKONKAMLA Referring Unavailable KAMLA CROWDER Attending Unavailable YOLANDE WARNER Primary Care Unavailab le VALENCIADIANNA Referring Unavailable VALENCIADIANNA Attending Unavailable YOLANDE WARNER Primary Care Unavailab YOLANDE Umana Attending Unavailab le YOLANDE WARNER Primary Care Unavailab le KAMLA CROWDER Referring Unavailable YOLANDE WARNER Primary Care Unavailab le YOLANDE WARNER Referring Unavailab YOLANDE Umana Primary Care Unavailab YOLANDE Umana Attending Unavailab YOLANDE Umana Primary Care Unavailab le TESTRAKE, LUCINDA Referring Unavailable TESTRAKE, LUCINDA Attending Unavailable YOLANDE WARNER Primary Care Unavailab le TESTRAKE, LUCINDA Referring Unavailable TESTRAKE, LUCINDA Attending Unavailable YOLANDE WARNER Primary Care Unavailab YOLANDE Umana Attending Unavailab YOLANDE Umana Primary Care Unavailab le KAMLA CROWDER Attending Unavailable Allergies Allergy Classification Reported Allergen(s) Allergy Type Date of Onset Reaction(s) Facility (20 sources) Meperidine; Translations: [MEPERIDINE] Drug Allergy 8 Vomiting [facility] (20 sources) Sulfonamides (Antibiotic); Translations: [SULFA (SULFONAMIDE ANTIBIOTICS)] Drug Intolerance 8 Unknown [facility] (20 sources) Tetanus vaccine; Translations: [TETANUS TOXOID] Drug Intolerance [facility] (16 sources) Tetanus Vaccines and Toxoid; Translations: [Tetanus Vaccines and Toxoid] Allergy to substance 1 [facility] (3 sources) Aspirin Drug Allergy 2 Other: See Comments [facility] Work Phone: (13 sources) Sulfonamides (Antibiotic) Allergy to substance 2 Fever and skin rash [facility] (1 source) Meperidine Drug Allergy 5 [facility] (1 source) Sulfonamides (Antibiotic) Drug allergy (disorder) 5 [facility] Rep[facility] Medications Current Medications Medication Drug Class(es) Dates Sig (Normalized) Sig (Original) amoxicillin 875 mg / clavulanate 125 mg oral tablet (2 sources) Penicillin-class Antibacterial Start: 09-29-2024 End: 10-06-2024 take 1 tablet by mouth twice daily amoxicillin-clavulan ate potassium (AUGMENTIN) 875-125 mg per tablet Indications: Sinobronchitis Take 1 tablet by mouth two times a day for 7 days. 14 tablet 09/29/2024 10/06/2024 Active aspirin 81 mg delayed release oral tablet (20 sources) Platelet Aggregation Inhibitor, Nonsteroidal Anti-inflammatory Drug Start: 07-18-2024 take 1 tablet by mouth once daily Aspirin 81 mg tablet,chewable Active 81 mg PO daily July 18, 2024 1:00am Start: 05-17-2024 End: 11-15-2024 take 1 tablet by mouth once daily aspirin, enteric coated (ADULT LOW DOSE ASPIRIN) 81 mg EC tablet Indications: Atherosclerosis of aorta , Hyperlipidemia, unspecified hyperlipidemia type Take 1 tablet by mouth once daily. 30 tablet 5 11/15/2024 Active benzonatate 100 mg oral capsule (2 sources) Non-narcotic Antitussive Start: 06-04-2024 End: 06-11-2024 take 1 capsule by mouth every eight hours as needed benzonatate (TESSALON PERLE) 100 mg capsule Take 1 capsule by mouth three times a day as needed for cough for up to 7 days. 21 capsule 06/04/2024 06/11/2024 Active Blood-Glucose Meter monitoring kit (1 source) Start: 05-31-2024 End: 06-01-2024 Blood-Glucose Meter monitoring kit Glucose Meter of Choice - Kit - Dx: Type 2 DM - Controlled E11.9 1 Each 05/31/2024 06/01/2024 Active ciclopirox 80 mg/ml topical solution (2 sources) Start: 01-22-2024 End: 02-21-2024 Ciclopirox (LOPROX) 8 % solution Indications: Onychomycosis Apply to affected area daily at bedtime. 6.6 mL 2 01/22/2024 02/21/2024 Active clotrimazole 10 mg/ml topical cream (1 source) Azole Antifungal Start: 02-25-2025 clotrimazole (LOTRIMIN) 1 % cream Apply 1 application to affected area two times a day. 12 g 02/25/2025 Active erythromycin 0.005 mg/mg ophthalmic ointment (2 sources) Macrolide, Macrolide Antimicrobial Start: 07-08-2023 End: 07-15-2023 erythromycin (ROMYCIN) 5 mg/gram (0.5 %) ophthalmic ointment Indications: Hordeolum externum of right lower eyelid Use 1 application in the right eye four times daily for 7 days. 3.5 g 0 07/08/2023 07/15/2023 Active Comment on above: Use 1 application in the right eye four times daily for 7 days. iv contrast (will be provided with radiology test) (1 source) Start: 02-19-2023 End: 02-20-2023 inject 1 dose intravenously once iv contrast (will be provided with radiology test) Indications: Abdominal aortic aneurysm (AAA) without rupture, unspecified part (HCC) CTA ABD/PEL - No IV access, insert saline lock prior to the sedation, infusion, injection for imaging exam. Discontinue saline lock post exam. If Pt. has a central line or IVAD, may access for administration according to line specific nursing protocol. Once exam is complete flush line and de-access according to line specific nursing protocol in the CT contrast administration guidelines link. 1 Each 0 02/19/2023 02/20/2023 Active Comment on above: CTA ABD/PEL - No IV access, insert saline lock prior to the sedation, infusion, injection for imaging exam. Discontinue saline lock post exam. If Pt. has a central line or IVAD, may access for administration according to line specific nursing protocol. Once exam is complete flush line and de-access according to line specific nursing protocol in the CT contrast administration guidelines link. lisinopril 5 mg oral tablet (20 sources) Angiotensin Converting Enzyme Inhibitor Start: 11-06-2023 End: 05-07-2025 take 1 tablet by mouth once daily lisinopril (ZESTRIL) 5 mg tablet Indications: Type 2 diabetes mellitus without complication, without long-term current use of insulin (HCC) Take 1 tablet by mouth once daily. 90 tablet 1 11/08/2024 05/07/2025 Active Start: 10-24-2022 End: 03-12-2023 take 1 tablet by mouth once daily lisinopril (ZESTRIL, PRINIVIL) 5 mg tablet Take 1 tablet by mouth once daily. 90 tablet 0 10/24/2022 03/12/2023 Discontinued Comment on above: Take 1 tablet by beth th once daily. metFORMIN hydrochloride 1000 mg oral tablet (20 sources) Biguanide Start: End: take 0.5 tablet by mouth once daily metFORMIN (GLUCOPHAGE) 1,000 mg tablet Indications: Hyperlipidemia, unspecified hyperlipidemia type , Benign prostatic hyperplasia with nocturia , Type 2 diabetes mellitus without complication, without long-term current use of insulin (HCC) Take 0.5 tablets by mouth once daily. 45 tablet 1 10/15/2024 04/13/2025 Active Start: 09-07-2018 take 1 tablet by beth th once daily Metformin 500 MG tablet Active 500 mg PO DAILY September 07, 2018 1:00am Start: 09-07-2018 take 1000 mg by mouth once abbie ly Metformin Active 1000 MG PO DAILY September 07, 2018 10:10am Comment on above: Take 0.5 tablets by mouth once daily. nitrofurantoin, macrocrystals 25 mg / nitrofurantoin, monohydrate 75 mg oral capsule (2 sources) Nitrofuran Antibacterial Start: 022 End: take 1 capsule by mouth twice daily at mealtime nitrofurantoin monohydrate and macrocrystal (MACROBID) 100 mg capsule Take 1 capsule by mouth twice daily with meals for 5 days. 10 capsule 0 07/10/2022 07/15/2022 Active Comment on above: Take 1 capsule by mo [facility] twice daily with meals for 5 days. nystatin [id number] unt/ml topical cream (2 sources) Polyene Antifungal Start: 025 End: nystatin (MYCOSTATIN) cream Indications: Balanitis Apply 1 application to affected area three times a day for 7 days. 30 g 1 10/08/2024 10/15/2024 Active ofloxacin 3 mg/ml ophthalmic solution (1 source) Quinolone Antimicrobial Start: End: take 2 drop(s) into the eye(s) every four hours ofloxacin (OCUFLOX) 0.3 % ophthalmic solution Indications: Acute conjunctivitis of right eye, unspecified acute conjunctivitis type Use 2 Drops in the right eye every 4 hours for 7 days. 10 mL 08/25/2024 09/01/2024 Active polyethylene glycol 3350 45762 mg powder for oral solution (5 sources) Osmotic Laxative Start: Polyethylene Glycol 3350 (Miralax) 17 gram powder in packet Active 17 GM PO DAILY January 30, 2022 12:00am polymyxin b 33446 unt/ml / trimethoprim 1 mg/ml ophthalmic solution (2 sources) Dihydrofolate Reductase Inhibitor Antibacterial, Polymyxin-class Antibacterial Start: End: take 1 drop(s) into the eye(s) every four hours trimethoprim-polymyxin (POLYTRIM) 10,000 unit- 1 mg/mL ophthalmic solution Use 1 Drop in the right eye every 4 hours for 7 days. 10 mL 06/04/2024 06/11/2024 Active predniSONE 20 mg oral tablet (1 source) Start: End: take 2 tablets by mouth once daily predniSONE (DELTASONE) 20 mg tablet Indications: Sinobronchitis Take 2 tablets by mouth once daily for 4 days. 8 tablet 09/29/2024 10/03/2024 Active rosuvastatin calcium 20 mg oral tablet (20 sources) HMG-CoA Reductase Inhibitor Start: End: take 1 tablet by mouth once daily at bedtime rosuvastatin (CRESTOR) 20 mg tablet Indications: Atherosclerosis of aorta , Hyperlipidemia, unspecified hyperlipidemia type Take 1 tablet by mouth daily at bedtime. 90 tablet 3 11/15/2024 Active tamsulosin hydrochloride 0.4 mg oral capsule (20 sources) alpha-Adrenergic Isabel Start: End: take 2 capsules by mouth once daily tamsulosin (FLOMAX) 0.4 mg Indications: Hyperlipidemia, unspecified hyperlipidemia type , Benign prostatic hyperplasia with nocturia , Elevated PSA Take 2 capsules by mouth once daily. 180 capsule 1 10/24/2022 04/13/2023 Discontinued (Discontinued by another Health Care Provider) Start: 09-07-2018 take 1 capsule by mo [facility] once daily Tamsulosin Hcl 0.4 MG capsule Active 0.4 mg PO DAILY July 13, 2023 10:54am Start: 09-07-2018 End: 07-13-2023 take 1 capsule by mouth twice daily Tamsulosin Hcl 0.4 MG capsule Discontinued 0.4 mg PO TWICE A DAY September 07, 2018 1:00am July 13, 2023 10:55am Comment on above: Take 2 capsules by [facility] once daily. Take 0.4 mg by mouth once daily. Completed/Discontinued Medications Medication Drug Class(es) Dates Sig (Normalized) Sig (Original) [id number] 200 actuat albuterol 0.09 mg/actuat metered dose inhaler (17 sources) beta2-Adrenergic Agonist Start: 06-25-2024 End: 11-15-2024 take 2 puff(s) by inhalation every four hours as needed for wheezing albuterol HFA (VENTOLIN HFA) 90 mcg/actuation inhaler Indications: Persistent cough for 3 weeks or longer Inhale 2 Puffs as instructed every 4 hours as needed for wheezing/shortness of breath. 1 Each 1 06/25/2024 11/15/2024 Discontinued cephalexin 500 mg oral capsule (9 sources) Cephalosporin Antibacterial Start: 08-22-2023 End: 01-11-2024 take 1 capsule by mouth every six hours Cephalexin 500 mg capsule Discontinued 500 mg PO EVERY 6 HOURS August 22, 2023 1:00am January 11, 2024 10:35am Start: 12-16-2022 End: 12-23-2022 take 1 capsule by mouth three times daily cephALEXin (KEFLEX) 500 mg capsule Indications: Cellulitis of left toe Take 1 capsule by mouth three times daily for 7 days. 21 capsule 0 12/16/2022 12/23/2022 Active Start: 05-22-2021 take 500 mg by mouth every six hours Cephalexin Active 500 MG PO EVERY 6 HOURS May 22, 2021 10:00pm Comment on above: Take 1 capsule by [facility] three times daily for 7 days. ciprofloxacin 500 mg oral tablet (20 sources) Quinolone Antimicrobial Start: 07-03-20 End: 01-14-20 take 1 tablet by mouth twice daily Ciprofloxacin Hcl 500 mg tablet Discontinued 500 mg PO TWICE A DAY July 03, 2022 12:00am January 13, 2023 9:24am Start: 06-25-2022 take 1 tablet by [facility] twice daily Ciprofloxacin Hcl (Cipro) 500 mg tablet Active 500 MG PO TWICE A DAY June 25, 2022 12:00am Start: 04-09-2022 End: 05-20-2022 take 1 tablet by mouth twice daily Ciprofloxacin Hcl 500 mg tablet Discontinued 500 mg PO TWICE A DAY April 09, 2022 12:00am May 20, 2022 8:11am diclofenac sodium 75 mg delayed release oral tablet (7 sources) Nonsteroidal Anti-inflammatory Drug Start: 01-22-2023 End: 04-22-2023 take 1 tablet by mouth every twelve hours at mealtime as needed for pain diclofenac, EC, (VOLTAREN) 75 mg EC tablet Indications: osteoarthritis TAKE 1 PILL BY MOUTH WITH FOOD UP TO EVERY 12 HOURS NEEDED FOR PAIN 60 tablet 2 01/22/2023 04/22/2023 Comment on above: TAKE 1 PILL BY MOUTH WITH FOOD UP TO JANET RY 12 HOURS NEEDED FOR PAIN finasteride 5 mg oral tablet (20 sources) 5-alpha Reductase Inhibitor Start: 09-07-2018 End: 11-08-2024 take 1 tablet by mouth once daily Finasteride 5 MG tablet Discontinued 5 mg PO DAILY September 07, 2018 1:00am September 08, 2024 10:13am Comment on above: Take 1 tablet by mouth once daily. Take 5 mg by mouth o nce daily. 0.375 ml leuprolide acetate 60 mg/ml prefilled syringe (19 sources) Gonadotropin Releasing Hormone Receptor Agonist Start: 06-11-2022 End: 01-13-2023 Leuprolide (3 Month) (Eligard (3 Month)) 22.5 mg Syringe Discontinued 22.5 mg SC .Q3MO June 11, 2022 12:00am January 13, 2023 9:24am On Hold: Resume on 07/09/22. Comment on above: Inject 22.5 mg subcutaneously every 3 mo nths. LORazepam 1 mg oral tablet (4 sources) Benzodiazepine Start: 09-27-2024 End: 11-25-2024 take 1 tablet by mouth twice daily Lorazepam (Ativan) 1 mg tablet Discontinued 1 mg PO TWICE A DAY as needed for claustrophobia 2 September 27, 2024 1:00am November 25, 2024 8:29am Take 1 tablet 1 hour before the MRI. If needed, take the 2nd tablet when you arrive for the MRI. meloxicam 7.5 mg oral tablet (20 sources) Nonsteroidal Anti-inflammatory Drug Start: 07-18-2024 End: 02-13-2025 take 1 tablet by mouth once daily Meloxicam 7.5 mg tablet Discontinued 7.5 mg PO daily July 18, 2024 1:00am February 13, 2025 8:06am Start: 11-07-2022 End: 12-07-2022 take 1 tablet by mouth once daily as needed meloxicam (MOBIC) 15 mg tablet Indications: Chronic low back pain without sciatica, unspecified back pain laterality , Spinal stenosis of lumbar region without neurogenic claudication Take 1 tablet by mouth once daily as needed. With food. 30 tablet 0 11/07/2022 12/07/2022 Active Comment on above: Take 1 tablet by beth th once daily as needed. With food. Take 15 mg by mouth once daily. Take 15 mg by mouth once daily. PRN naproxen 500 mg oral tablet (9 sources) Nonsteroidal Anti-inflammatory Drug Start: 2 End: 2 take 1 tablet by mouth twice daily as needed for pain naproxen (NAPROSYN) 500 mg tablet Indications: Chronic bilateral low back pain with right-sided sciatica Take 1 tablet by mouth twice daily as needed for pain. Take with food. 60 tablet 1 10/21/2021 04/23/2022 Discontinued Comment on above: Take 1 tablet by beth th twice daily as needed for pain. Take with food. 24 hr oxybutynin chloride 10 mg extended release oral tablet (8 sources) Cholinergic Muscarinic Antagonist Start: 3 End: 3 take 1 tablet by mouth once daily oxybutynin ER (DITROPAN XL) 10 mg 24 hr tablet Take 1 tablet by mouth once daily. 0 05/08/2023 07/16/2023 Discontinued Start: 05-20-2022 take 1 tablet by beth th twice daily Oxybutynin Chloride Active 5 MG PO TWICE A DAY May 20, 2022 12:00am take one tab PO bid Comment on above: Take 1 tablet by beth th once daily. pravastatin sodium 20 mg oral tablet (20 sources) HMG-CoA Reductase Inhibitor Start: 2 End: take 1 tablet by mouth once daily Pravastatin 20 mg tablet Discontinued 20 mg PO DAILY January 30, 2022 12:00am July 18, 2024 10:02am Comment on above: Take 1 tablet by beth th once daily. Problems Active Problems Problem Classification Problem Date Documented Da te Episodic/Chronic Abdominal pain (4 sources) Abdominal pain; Translations: [Unspecified abdominal pain] Onset: 01-26-2025 01-23-2025 Episodic Aortic and peripheral arterial embolism or thrombosis (1 source) Thrombosis of aorta; Translations: [Embolism and thrombosis of unspecified parts of aorta] 03-08-2024 Chronic Aortic; peripheral; and visceral artery aneurysms (20 sources) Abdominal aortic aneurysm without rupture; Translations: [Abdominal aortic aneurysm (AAA) without rupture, unspecified part (HCC)] Onset: 03-24-2023 Chronic Cancer of prostate (20 sources) Primary malignant neoplasm of prostate; Translations: [Malignant neoplasm of prostate] Onset: 04-23-2022 Chronic Cancer of prostate (10 sources) History of malignant neoplasm of prostate; Translations: [Personal history of malignant neoplasm of prostate] 07-11-2022 Episodic Deficiency and other anemia (3 sources) Normocytic anemia; Translations: [Anemia, unspecified] 05-08-2023 Episodic Diabetes mellitus with complications (20 sources) Polyneuropathy due to type 2 diabetes mellitus; Translations: [Type 2 diabetes mellitus with diabetic polyneuropathy] Onset: 08-17-2018 08-17-2018 Chronic Diabetes mellitus without complication (20 sources) Type 2 diabetes mellitus; Translations: [Type 2 diabetes mellitus without complications] Onset: 11-04-2024 08-17-2018 Chronic Disorders of lipid metabolism (20 sources) Hyperlipidemia; Translations: [Hyperlipidemia, unspecified] Onset: 08-17-2018 08-17-2018 Chronic Essential hypertension (3 sources) Essential hypertension; Translations: [Essential (primary) hypertension] Onset: 11-15-2024 05-16-2024 Chronic Genitourinary symptoms and ill-defined conditions (1 source) Urinary catheter in situ; Translations: [Presence of urogenital implants] Chronic Hyperplasia of prostate (20 sources) Benign prostatic hyperplasia; Translations: [Benign prostatic hyperplasia without lower urinary tract symptoms] Onset: 08-17-2018 08-17-2018 Chronic Inflammatory conditions of male genital organs (1 source) Balanitis; Translations: [Balanitis] 10-08-2024 Chronic Mycoses (14 sources) Onychomycosis; Translations: [Tinea unguium] Onset: 02-21-2025 Episodic Nonspecific chest pain (20 sources) Left sided chest pain; Translations: [Chest pain, unspecified] 06-12-2019 Episodic Osteoarthritis (20 sources) Primary osteoarthritis, right hand; Translations: [Arthropathy, unspecified, hand] Onset: 07-08-2024 07-08-2024 Chronic Other acquired deformities (5 sources) Scoliosis of lumbar spine; Translations: [Scoliosis, unspecified] 09-08-2024 Chronic Other acquired deformities (6 sources) Lumbar spondylolisthesis; Translations: [Spondylolisthesis, lumbar region] 11-25-2024 Episodic Other bone disease and musculoskeletal deformities (6 sources) Osteopenia; Translations: [Other specified disorders of bone density and structure, unspecified site] 11-25-2024 Episodic Other circulatory disease (4 sources) Abnormal peripheral pulse; Translations: [Other specified symptoms and signs involving the circulatory and respiratory systems] Episodic Other circulatory disease (1 source) Other specified symptoms and signs involving the circulatory and respiratory systems; Translations: [Diminished pulses in lower extremity] Onset: 02-21-2025 Episodic Other connective tissue disease (13 sources) Pain of toe of left foot; Translations: [Pain in left toe(s)] Episodic Other connective tissue disease (13 sources) Pain of toe of right foot; Translations: [Pain in right toe(s)] Episodic Other connective tissue disease (1 source) Pain in finger of right hand; Translations: [Pain in right finger(s)] Episodic Other connective tissue disease (1 source) Triggering of digit; Translations: [Trigger finger, right little finger] Episodic Other connective tissue disease (1 source) 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; Translations: [Other symptoms and signs involving the musculoskeletal system] 09-02-2024 Episodic Other connective tissue disease (1 source) Other symptoms and signs involving the musculoskeletal system; Translations: [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] Onset: 09-02-2024 Episodic Other connective tissue disease (1 source) Pain in left toe(s); Translations: [Pain in toe of left foot] Onset: 02-21-2025 Episodic Other connective tissue disease (1 source) Pain in right toe(s); Translations: [Pain in toe of right foot] Onset: 02-21-2025 Episodic Other diseases of bladder and urethra (1 source) Bladder outlet obstruction; Translations: [Bladder-neck obstruction] Chronic Other diseases of bladder and urethra (1 source) Overactive bladder; Translations: [Overactive bladder] 05-08-2023 Chronic Other gastrointestinal disorders (1 source) Constipation; Translations: [Constipation, unspecified] 07-26-2024 Episodic Other gastrointestinal disorders (3 sources) Excessive flatus; Translations: [Flatulence] 02-07-2025 Episodic Other gastrointestinal disorders (3 sources) Incomplete passage of stool; Translations: [Incomplete defecation] 02-07-2025 Episodic Other gastrointestinal disorders (1 source) Abdominal bloating; Translations: [Abdominal distension (gaseous)] 02-07-2025 Episodic Other gastrointestinal disorders (1 source) Flatulence; Translations: [Excessive gas] Onset: 02-07-2025 Episodic Other gastrointestinal disorders (1 source) Abdominal distension (gaseous); Translations: [Bloating] Onset: 02-07-2025 Episodic Other gastrointestinal disorders (1 source) Incomplete defecation; Translations: [Incomplete passage of stool] Onset: 02-07-2025 Episodic Other injuries and conditions due to external causes (1 source) Injury of right elbow region; Translations: [Unspecified injury of right elbow, initial encounter] 07-08-2024 Episodic Other injuries and conditions due to external causes (1 source) Injury of head; Translations: [Unspecified injury of head, initial encounter] 07-08-2024 Episodic Other lower respiratory disease (2 sources) Persistent cough; Translations: [Persistent cough for 3 weeks or longer] 06-25-2024 Episodic Other lower respiratory disease (3 sources) Solitary nodule of lung; Translations: [Solitary pulmonary nodule] 01-23-2025 Episodic Other male genital disorders (20 sources) H/O: male genital disorder; Translations: [Personal history of other diseases of male genital organs] 09-26-2020 Episodic Other nervous system disorders (1 source) Unsteady when walking; Translations: [Unsteadiness on feet] 05-10-2024 Episodic Other nervous system disorders (5 sources) Impairment of balance; Translations: [Other abnormalities of gait and mobility] 09-08-2024 Episodic Other nutritional; endocrine; and metabolic disorders (15 sources) History of hypercholesterolemia; Translations: [Personal history of other endocrine, nutritional and metabolic disease] 09-26-2020 Episodic Other nutritional; endocrine; and metabolic disorders (15 sources) History of diabetes mellitus type 2; Translations: [Personal history of other endocrine, nutritional and metabolic disease] 05-24-2022 Episodic Other nutritional; endocrine; and metabolic disorders (2 sources) H/O: diabetes mellitus; Translations: [Personal history of other endocrine, nutritional and metabolic disease] 05-16-2024 Episodic Other skin disorders (1 source) Eruption; Translations: [Rash and other nonspecific skin eruption] 02-25-2025 Episodic Other skin disorders (1 source) Rash and other nonspecific skin eruption; Translations: [Rash] Onset: 02-25-2025 Episodic Other upper respiratory infections (1 source) Chronic sinusitis; Translations: [Chronic sinusitis, unspecified] 09-29-2024 Chronic Peripheral and visceral atherosclerosis (5 sources) Atherosclerosis of aorta; Translations: [Atherosclerosis of aorta] Onset: 11-15-2024 05-16-2024 Chronic Secondary malignancies (1 source) 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; Translations: [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] Onset: 02-13-2025 Chronic Skin and subcutaneous tissue infections (16 sources) Cellulitis; Translations: [Cellulitis, unspecified] 05-30-2021 Episodic Spondylosis; intervertebral disc disorders; other back problems (20 sources) Lumbar spondylosis; Translations: [Spondylosis without myelopathy or radiculopathy, lumbar region] Onset: 07-01-2023 04-23-2023 Chronic Unclassified (1 source) Low back pain, unspecified; Translations: [Low back pain, unspecified] Onset: 09-08-2024 Unclassified (1 source) Persistent cough for 3 weeks or longer; Translations: [Persistent cough for 3 weeks or longer] Onset: 06-25-2024 Urinary tract infections (6 sources) Urinary tract infectious disease; Translations: [Urinary tract infection, site not specified] 08-22-2023 Episodic Past or Other Problems Problem Classification Problem Date Documented Date Episodic/Chronic Cancer of testis (20 sources) Malignant tumor of testis; Translations: [Malignant neoplasm of unspecified testis, unspecified whether descended or undescended] Resolved: 08-17-2018 08-17-2018 Chronic E Codes: Fall (2 sources) Fall in home; Translations: [Unspecified fall, initial encounter] Onset: 07-08-2024 07-08-2024 Episodic E Codes: Place of occurrence (1 source) Unspecified place in unspecified non-institutional (private) residence as the place of occurrence of the external cause; Translations: [Fall in home, initial encounter] Onset: 07-08-2024 Episodic Genitourinary symptoms and ill-defined conditions (20 sources) Bladder pain; Translations: [Other symptoms and signs involving the genitourinary system] Onset: 08-17-2018 Episodic Immunizations and screening for infectious disease (3 sources) Patient encounter status; Translations: [Encounter for immunization] Onset: 05-10-2024 05-08-2023 Episodic Inflammation; infection of eye (except that caused by tuberculosis or sexually transmitteddisease) (5 sources) Hordeolum externum of lower eyelid of right eye; Translations: [Hordeolum externum right lower eyelid] Onset: 06-06-2024 07-08-2023 Episodic Other injuries and conditions due to external causes (1 source) Unspecified injury of right elbow, initial encounter; Translations: [Injury of right elbow, initial encounter] Onset: 07-08-2024 Episodic Other injuries and conditions due to external causes (1 source) Unspecified injury of head, initial encounter; Translations: [Injury of head, initial encounter] Onset: 07-08-2024 Episodic Other nervous system disorders (1 source) Unsteadiness on feet; Translations: [Unsteady gait when walking] Onset: 05-10-2024 Episodic Other nutritional; endocrine; and metabolic disorders (1 source) Personal history of other endocrine, nutritional and metabolic disease; Translations: [History of diabetes mellitus] Onset: 11-15-2024 Episodic Other screening for suspected conditions (not mental disorders or infectious disease) (20 sources) Raised prostate specific antigen; Translations: [Elevated prostate specific antigen [PSA]] Onset: 05-08-2023 Episodic Other upper respiratory infections (3 sources) Acute upper respiratory infection; Translations: [Acute upper respiratory infection, unspecified] Onset: 06-06-2024 06-04-2024 Episodic Spondylosis; intervertebral disc disorders; other back problems (20 sources) Stiff neck; Translations: [Torticollis] Onset: 10-10-2019 Resolved: 06-04-2022 10-10-2019 Episodic Superficial injury; contusion (17 sources) Contusion of foot; Translations: [Contusion of unspecified foot, initial encounter] Onset: 07-08-2024 05-30-2021 Episodic Results Test Name Value Interpretation Reference Range Facility [facility] 02-25-2025 CNOV Office Visit (UCWSTR ) JAYLINTANISHA BENDER ([id number]) 1940 M Date Time Provider Department 02/25/25 10:30 AM ANTHONY HERNANDEZ [facility] During your visit today, we recorded the following information about you: Temperature Pulse Respiration Blood pressure 97.5 degrees 79/minute 18/minute 110/63 Weight 84.5 kg Anthony Hernandez PA 02/25/2025 10:33 AM Signed [facility] Subjective Tanisha Salter is a 84 year old male. Patient presents with: Derm Problem: Possible athletes foot R foot x2 months HPI Rash: - Initial rash on the R foot and ankle noted a few months ago. - Rash has recently spread to the sides of the feet and ankles over the past week. - No pruritus or pain associated with the rash. - Noticed a new area on the side of the foot; uncertain if it is related to the rash or a result of trauma. - Technical Laboratory Asst did not comment on the rash during a recent visit. - Dermatology appointment scheduled in 3 weeks; patient is on a waitlist for an earlier appointment. Review of Systems Skin: (+) rash, (-) pruritus, (-) pain Objective BP 110/63 Pulse 79 Temp 36.4 ?C (97.5 ?F) Resp 18 Wt 84.5 kg (186 lb 4.6 oz) SpO2 97% BMI 25.27 kg/m? Physical Exam Vitals and nursing note reviewed. Constitutional: General: He is not in acute distress. Appearance: Normal appearance. He is not toxic-appearing. Cardiovascular: Pulses: Dorsalis pedis pulses are 2+ on the right side. Posterior tibial pulses are 2+ on the right side. Musculoskeletal: Feet: Feet: Right foot: Skin integrity: No warmth, dry skin or fissure. Toenail Condition: Fungal disease present. Comments: Patient has macular erythematous blanchable rash on back of right ankle, right lateral foot and a spot on the proximal second toe. Nontender. No vesicular lesions. It is flat. No drainage. No lymphatic streaking. No ulcerations. He does have fungal toenail disease, but no fissuring or fungal disease between the toes noted. Skin: General: Skin is warm and dry. Neurological: Mental Status: He is alert. {ASSESSMENT/PLAN: 1. Rash (R21) - Rash on lower extremities, non-pruritic, non-tender, with recent spread to toes; does not appear infectious on examination. - Differential diagnosis includes fungal vs vascular etiology? Normal pulses. Normal cap refill. Not painful. No purpura or petechiae. - Prescribed topical antifungal cream to be applied to all areas of erythema. - Advised to monitor for any changes, including increased pain or swelling. - Patient has a dermatology appointment scheduled in 3 weeks; instructed to maintain the appointment and inquire about waitlist opportunities for an earlier consultation. - [facility]. Recording using [employer] software for draft documentation of the visit was discussed with the patient/authorized b2b outside sales representative; all questions welcomed and answered. Patient/authorized b2b outside sales representative agreed to proceed History and Record Review External record(s) reviewed: prior outpatient record. Differential Diagnoses - Rash is more likely for the following reason(s): suggested by HANDP - Cellulitis is less likely for the following reason(s): HANDP not suggestive Disposition The patient was discharged. Procedures Allergies As of Date: 02/25/2025 Noted Allergy Reaction DEMEROL (MEPERIDINE) 12/26/2017 11 - Vomiting SULFA (SULFONAMIDE ANTIBIOTICS) 12/26/2017 16 - Unknown Comments: Elevated temperature TETANUS TOXOID 12/26/2017 4 - Hives Date Reviewed: 02/25/2025 Reviewed by: Ade Moreau MA - Fully Assessed Reason for Visit: Derm Problem [33] Cmt: Possible athletes foot R foot x2 months Primary Visit Diagnosis:Rash [R21] Order(s):clotrimazole (LOTRIMIN) 1 % creamApply 1 application to affected area two times a day.Disp: 12 gRfl: 0 Prescriptions as of 02/25/2025 - clotrimazole (LOTRIMIN) 1 % cream Apply 1 application to affected area two times a day. - polyethylene glycol 3350 (MIRALAX) 17 gram/dose powder Take by mouth once daily. Dissolve dose in 4 - 8 ounces of liquid and take as directed. - rosuvastatin (CRESTOR) 20 mg tablet Take 1 tablet by mouth daily at bedtime. - aspirin, enteric coated (ADULT LOW DOSE ASPIRIN) 81 mg EC tablet Take 1 tablet by mouth once daily. - lisinopril (ZESTRIL) 5 mg tablet Take 1 tablet by mouth once daily. - metFORMIN (GLUCOPHAGE) 1,000 mg tablet Take 0.5 tablets by mouth once daily. - Lancets Test blood sugar(s) 1 to 2 times daily. Dx: Type 2 DM - Controlled E11.9 Insulin: No - blood sugar diagnostic (BLOOD GLUCOSE TEST) test strip Test blood sugar(s) 1-2 times daily. Dx: Type 2 DM - Controlled E11.9 Insulin: No - tamsulosin (FLOMAX) 0.4 mg Take 0.4 mg by mouth once daily. Problem List As Of Date 02/25/2025 Noted Resolved Diabetes mellitus, type 2 (HCC) [E11.9] (more content not included)... Normal [facility] CNOVon 02-21-2025 CNOV Office Visit (PODIWS ) JOIETANISHA ([id number]) 1940 M Date Time Provider Department 02/21/25 8:00 AM LUCINDA KOHLER During your visit today, we recorded the following information about you: La Forrester, FRANCISCO 02/21/2025 8:47 AM Signed Patient presents with: Left Foot - Established Patient, Follow Up, Diabetic Foot Care Right Foot - Established Patient, Follow Up, Diabetic Foot Care Patient presents for 2 month follow up diabetic foot/nail care. RAFAEL 12/20/24 Lucinda Kohler 02/21/2025 8:05 AM Signed Diabetes Foot Care Instructions When you have [...] (or decreased sensation in your feet) a energy director should always cut your toenails. Be Careful [...] Go to your health care provider or energy director to treat these conditions. Danna Kohlerew 02/21/2025 8:47 AM Signed Last saw pcp: 11/08/24 Subjective: Patient presents to clinic c/o painful toenails. They state that the nails are especially painful with shoe gear and pressure. Patient states that nails 1-5 b/l are painful. Patient admits to being diabetic. No other pedal complaints at this time. Patient states no change in medications or medical history since last visit. Objective: Patient presents to clinic ambulating in afers Vasc: DP and PT pulses (more content not included)... Normal [facility] Radiation Oncology Visiton 0 02-13-2025 Radiation Oncology Visit [facility] [address] [place] [address]. [place] [address] OFFICE VISIT Date of Service: 02/13/25804 MR#: [id number] Acct: [id number] Name: TANISHA SALTER Rep #: [id number] : 1940 From: Jose You DO Age/Sex: 84/M Location: [facility] [place] Status: Signed Intake Vital Signs 07/18/24 08:56 01/23/25 14:51 02/13/25 08:07 Height 6 ft 6 ft 6 ft Weight: 187 lb 7 oz BMI 25.4 BP 130/71 H Blood Pressure Location Rt brachial Position Sitting Respiration 18 Pulse 65 Pulse Source Monitor Temp 97.8 F Temperature Source Temporal Artery Pulse Oximetry (%) 96 Oxygen Delivery Method room air Intake Visit Reasons: 8 MONTH F/U PROSTATE, PSA PRIOR Is patient in pain?: Yes (lower back) Pain scale (1-10): 8 Allergies Sulfa (Sulfonamide Antibiotics) Allergy (Verified 02/13/25 08:06) Fever and skin rash Tetanus Vaccines and Toxoid Allergy (Verified 02/13/25 08:06) Rash meperidine (From Demerol) Adverse Reaction (Verified 02/13/25 08:06) Vomiting Medications ???Medication ???Instructions ???Recorded ???Confirmed ???Type metformin 500 mg tablet,extended 500 mg PO DAILY 09/07/18 02/13/25 History release 24 hr Tamsulosin Hcl 0.4 mg PO DAILY 07/13/23 02/13/25 History lisinopril 5 mg tablet 5 mg PO DAILY 01/11/24 02/13/25 Hi story aspirin 81 mg chewable tablet 81 mg PO QDAY 07/18/24 02/13/25 Hi story rosuvastatin 20 mg tablet 20 mg PO QDAY 07/18/24 02/13/25 Hi story Have you fallen in the past year?: Yes PFSH PFSH Medical History Indwelling urethral catheter present Constipation Wears dentures Cancer Diabetes Arthritis High cholesterol Back pain Testicular cancer Home Medications ???Medication ???Instructions ???Recorded ???Last Taken ???Type metformin 500 mg tablet,extended 500 mg PO DAILY 09/07/18 Unknown H istory release 24 hr Tamsulosin Hcl 0.4 mg PO DAILY 07/13/23 Unknown H istory lisinopril 5 mg tablet 5 mg PO DAILY 01/11/24 Unknown His tory aspirin 81 mg chewable tablet 81 mg PO QDAY 07/18/24 Unknown His tory rosuvastatin 20 mg tablet 20 mg PO QDAY 07/18/24 Unknown His tory Allergy/AdvReac Type Severity Reaction Status Date / Time Sulfa (Sulfonamide Allergy Fever and Verified 02/13/25 08:06 Antibiotics) skin rash Tetanus Vaccines and Toxoid Allergy Rash Verified 02/13/25 08:06 meperidine (From Demerol) AdvReac Vomiting Verified 02/13/25 08:06 Family History Father Heart disease Diabetes Mother Myocardial infarction Alzheimer disease Grandmother Cancer Sister Breast cancer Surgical History S/P TURP (status post transurethral resection of prostate) Hx of cystoscopy Hx of knee surgery History of removal of testicle Social History Smoking Status: Former smoker pack-years: 30 Tobacco: How many years used: 30 alcohol intake: current alcohol intake frequency: holidays/special occasions only substance use type: does not use diet: diabetic Diagnosis: Tansiha Salter is an 84-year-old male diagnosed with stage KHADRA prostate adenocarcinoma (cT3N1, 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 From 05/06/2022 ??? 06/12/2022 he completed definitive radiation therapy with ADT. History of Present Illness: 01/13/2022: TRUS guided biopsy was performed.??? This demonstrated Vic score 3+4 adenocarcinoma involving 50% of 1 core in the left prostate base.??? All remaining biopsies were benign. 01/28/2022: Patient was seen by urology.??? Treatment options were discussed and recommendation was to proceed with radiation therapy concurrent with ADT. 02/12/2022: MRI pelvis with and without contrast was performed.??? This demonstrated a 1.3 x 0.9 cm moderately T2 hypointense lesion of the left lateral transitional zone at the mid gland which is bright on DWI and dark on ADC map.??? PI-RADS score 4.??? There does appear to be extraprostatic extension by 3 mm laterally.??? There is an enlarged left external iliac lymph node measuring 1.5 cm. 02/26/2022: PSMA PET scan was completed and this demonstrated evidence for a 1.3 cm hypodense lesion in the left posterior lateral prostate with increased SUV of 11.5 which correlates to the lesion on the MRI.??? There is also an enlarged lymph node along the left pelvic sidewall measuring 1.4 x 1.8 cm posterior to the left external iliac vein with an SUV of 17.2.??? No other abnormalities are appreciated. 05/06/2022 ??? 06/12/2022: received 7000 cGy to the pr (more content not included)... Normal [facility] PSA,Total- Diagnosticon 01-29 PSA, DIAGNOSTIC < 0.02 Normal 0.00-4.00 [facility] Comment on above: Result Comment: This test was performed using the [employer] Nova[employer]om tPSA method. Measured values of a patient??sample can vary depending on the testing procedure used. PSA values determined on patient samples by different testing procedures cannot be used interchangeably. If there is a change in PSA assays while monitoring therapy, sequential testing should be performed to confirm baseline values. Performed By: #### L [id number] #### [facility] [address] [place], [address] CELIAC SCREENon 02-07-2025 GLIAD DEAMIDATED IGA QUAL Negative Normal Negative, Test not Indicated [facility] Comment on above: Order Comment: Speci men Type: BLOOD SPECIMENOrdering Facility: [facility] Address: [address] [place] [address] Result Comment: This is used as an aid in diagnosis of celiac disease. Clinical correlation is required. The following results were obtained with an [employer] QUANTA Lite Gliadin IgA VIKA Gliadin. Gliadin IgA values obtained with different manufacturers' assay methods may not be used interchangeably. The magnitude of the reported IgA levels cannot be correlated to an endpoint titer. Performed By: #### L [id number] ####[facility] LABCLIA [id number] [place] [address] [place] Gliadin peptide IgA Qn (S) 3 Units Normal <20 [facility] Comment on above: Order Comment: Speci men Type: BLOOD SPECIMENOrdering Facility: [facility] Address: [address] [place] [address] Performed By: #### L [id number] ####[facility] LABCLIA [id number] [address] [address] [place] INTERPRETATION No serological evidence of celiac disease, however, if celiac disease is clinically suspected and patient is not on gluten-free diet, histological diagnosis may be considered. HLA testing may help with risk assessment. Normal [facility] Comment on above: Order Comment: Speci men Type: BLOOD SPECIMENOrdering Facility: [facility] Address: [address] [place] [address] Performed By: #### L [id number] ####[facility] LABCLIA [id number] [address] [place] TRANSGLUTAMINASE IGA ABS INTERPRETATION Negative Normal Negative [facility] Comment on above: Order Comment: Jeanette shepherd Type: BLOOD SPECIMENOrdering Facility: [facility] Address: [address] [place] [address] Result Comment: The following results were obtained with [employer] Lite R h-tTG IgA VIKA.???R h-tTG IgA values obtained with different manufacturers' assay methods may not be used interchangeably. The magnitude of the reported IgA levels cannot be corelated to an endpoint???concentration. This is used as an aid in diagnosis of celiac disease. Clinical correlation is required. Performed By: #### L [id number] ####[facility] LABIA [id number] [address] [place] tTG IgA Qn (S) <2 Normal <4 [facility] Comment on above: Order Comment: Jeanette shepherd Type: BLOOD SPECIMENOrdering Facility: [facility] Address: [address] [place] [address] Performed By: #### L [id number] ####[facility] LABCLIA [id number] [address] [place] CNOVon 02-07-2025 CNOV Office Visit (GSTNOR ) TANISHA SALTER ([id number]) 1940 M Date Time Provider Department 02/07/25 10:55 AM KAMLA CROWDER GSTОЛЕГR During your visit today, we recorded the following information about you: Pulse Blood pressure Weight Height 64/minute 118/74 85.7 kg 1.829 m Kamla Crowder PA-C 02/07/2025 11:10 AM Signed CHIEF COMPLAINT: Patient presents with: Nausea: Stomach discomfort, Gas, Alternating bowel habits HPI Tanisha Salter is a 84 year old male here today for Nausea (Stomach discomfort, Gas, Alternating bowel habits ) Daughter is present today. Patient notes that he is dealing with urgency and will have to strain to go. Stools are firm and complete. Notes that he is dealing with a ton of gas, very loud. Notes some bloating. Denies abdominal pain. Notes some nausea with the gas. Appetite is fine. Weight is stable. Trying to watch what he is eating. Notes he is eating a lot of fiber as well as taking Metamucil. Last OV with me 07/26/2024: Assessment/Plan (K59.00) Constipation, unspecified constipation type (primary encounter diagnosis) 1. Constipation, unspecified constipation type -- Patient with hard stools, moving bowels every few days with straining. -- Discussed Miralax in detail. Was helping but stopped it. Recommend restarting the medication. Can try it every other day. -- Recommend high fiber diet. Explained that apples can be constipated for some patients. Prunes, kiwi are good fruits for bowel movements. Follow up in office PRN. Current Outpatient Medications Medication Sig polyethylene glycol 3350 (MIRALAX) 17 gram/dose powder Take by mouth once daily. Dissolve dose in 4 - 8 ounces of liquid and take as directed. rosuvastatin (CRESTOR) 20 mg tablet Take 1 tablet by mouth daily at bedtime. aspirin, enteric coated (ADULT LOW DOSE ASPIRIN) 81 mg EC tablet Take 1 tablet by mouth once daily. lisinopril (ZESTRIL) 5 mg tablet Take 1 tablet by mouth once daily. metFORMIN (GLUCOPHAGE) 1,000 mg tablet Take 0.5 tablets by mouth once daily. Lancets Test blood sugar(s) 1 to 2 times daily. Dx: Type 2 DM - Controlled E11.9 Insulin: No blood sugar diagnostic (BLOOD GLUCOSE TEST) test strip Test blood sugar(s) 1-2 times daily. Dx: Type 2 DM - Controlled E11.9 Insulin: No tamsulosin (FLOMAX) 0.4 mg Take 0.4 mg by mouth once daily. No current facility-administered medications for this visit. ALLERGIES Allergen Reactions Demerol [Meperidine] Vomiting Sulfa (Sulfonamide * Unknown Elevated temperature Tetanus Toxoid Hives Social History Tobacco Use Smoking status: Former Current packs/day: 0.00 Average packs/day: 1.5 packs/day for 20.0 years (30.0 ttl pk-yrs) Types: Cigarettes Start date: 07/23/1970 Quit date: 07/23/1990 Years since quittin.5 Smokeless tobacco: Never Vaping Use Vaping status: Never Used Substance Use Topics Alcohol use: Not Currently Comment: rarely Drug use: No PAST MEDICAL HISTORY Diagnosis Date Adrenal incidentaloma (HCC) 03/24/2023 BPH (benign prostatic hyperplasia) Diabetes mellitus, type 2 (HCC) 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 s/p radiation Spinal stenosis lumbar. Dr. Abraham Testicular cancer (HCC) radiation- PAST SURGICAL HISTORY Procedure Laterality Date COLONOSCOPY 2011 normal CYSTOSCOPY 08/2023 HEMORRHOIDECTOMY 1960s ORCHIECTOMY SIMPLE Left 1983 testicular cancer, with radiation PAST SURGICAL HISTORY OF Left knee arthroscopy PAST SURGICAL HISTORY OF 10/2023 Bladder Surgery PAST SURGICAL HISTORY OF 10/09/2023 Revised surgery on bladder neck Dr. Lundberg TONSILLECTOMY HX childhood TRANSURETHRAL ELEC-SURG PROSTATECTOM 06/25/2022 FAMILY HISTORY Problem Relation Age of Onset Alzheimer's Disease Mother Heart Mother Diabetes Father Heart Father Cancer Sister No Known Problems Brother No Known Problems Maternal Grandmother No Known Problems Maternal Grandfather Diabetes Paternal Grandmother No Known Problems Paternal Grandfather Colon Cancer No Family History REVIEW OF SYSTEMS Review of Systems Gastrointestinal: Positive for abdominal pain and nausea. Change in Bowel Habits, Gas All other systems reviewed and are negative. PHYSICAL EXAM BP 118/74 Pulse 64 Ht 6' 0 (1.83m) Wt 189 lb (85.7kg) BMI 25.63 kg/(m2). Physical Exam Constitutional: Appearance: Normal appearance. HENT: Head: Normocephalic and atraumatic. Eyes: General: No scleral icterus. Extraocular Movements: Extraocular movements intact. Conjunctiva/sclera: Conjunctivae normal. Pupils: Pupils are equal, round, and reactive to light. Cardiovascular: Rate and Rhythm: Normal rate and regular rhythm. Pulses: Normal pulses. Heart (more content not included)... Normal [facility] IgA SerPl-mCncon 02-07-2025 IgA [Mass/Vol] 127 mg/dL Normal 70-400 [facility] Comment on above: Order Comment: Speci men Type: BLOOD SPECIMENOrdering Facility: [facility] Address: [address] [place] [address] Performed By: #### 2 [id number] ####[facility] LABCLIA [id number] [place] [address] [place] XR ABD 2V SUPINE W UPR/DECUB /CTLon 02-07-2025 XR ABD 2V SUPINE W UPR/DECUB/CTL * * *Final Report* * * DATE OF EXAM: Feb 07 2025 1:37PM WOX 5356 - XR ABD 2V SUPINE W UPR/DECUB/CTL / PROCEDURE REASON: multiple diagnoses * * * * Physician Interpretation * * * * Indication: Excessive gas, incomplete passage of stool Comparison: None 4 x-rays of the abdomen are obtained. There is a non-obstructed bowel gas pattern. Large amount of fecal material in the colon. There is no hepatomegaly or splenomegaly. Phleboliths in the pelvis. There are no acute osseous abnormalities. Degenerative disease of the lumbar spine. IMPRESSION: NO ACUTE ABDOMINAL PATHOLOGY VISUALIZED Driver'S License Reviewing Officer: KELLEY Transcribe Date/Time: Feb 13 2025 4:32P Dictated by : JACQUIE KELLY MD This examination was interpreted and the report reviewed and electronically signed by: JACQUIE KELLY MD on Feb 13 2025 4:34PM EST [id number] Normal [facility] Urine Cultureon 01-24-2025 URC Culture exhibits no growth. Normal [facility] Comment on above: Performed By: #### M 100.2200 ####[facility] [address] [place], [address] Abdomen/Pelvis without Conto n 01-23-2025 Abdomen/Pelvis without Cont [facility] Imaging Services [address] [place], [place] [id number] Abdomen/Pelvis without Cont MR#: [id number] Acct: [id number] Name: TANISHA SALTER Rep #: [id number] : 1940 M 84 From: Macie Arriaza nd, MD PCP: Dr. Perfecto Warner MD Status: REG ER Study: Abdomen/Pelvis without Cont Date of Exam: 12/30 02/22 Exam# [id number] Ordering Dr: Yomi Velazco DO PROCEDURE: ABDOMEN/PELVIS WITHOUT CONT 01/23/2025 REASON FOR EXAM: KIDNEY STONE TECHNIQUE: Abdomen and pelvis CT without intravenous contrast. Noncontrast technique limits evaluation of the abdominal and pelvic viscera. Coronal and Sagittal reconstruction series were provided. One or more dose reduction techniques were used (e.g., Automated exposure control, adjustment of the mA and/or kV according to patient size, use of iterative reconstruction technique). PATIENT PREPARATION: Per protocol ORAL CONTRAST TYPE: None. COMPARISON: None. FINDINGS: Lung bases: Bibasilar atelectasis. Tiny scattered pulmonary nodules (for example within the right lower lobe series 2, image 14). Severe coronary artery calcifications. Liver: The unopacified liver is normal in size. No biliary ductal dilation. Gallbladder: No radiopaque stones within the gallbladder. Spleen: Normal in size. Pancreas: The unopacified pancreas is unremarkable. Adrenals: No adrenal mass. Kidneys: No hydronephrosis or nephrolithiasis. Bladder: Minimally distended. Reproductive Organs: Prior TURP. Bowel: The bowel loops are normal in caliber. No ascites or pneumoperitoneum. No inflammatory mass in the expected region of the appendix. Lymph nodes: Visualization is limited without the use of IV contrast. No large lymphadenopathy. Vasculature: Moderate mixed atherosclerotic plaque throughout the aortoiliac vessels. Bones: Thoracolumbar spondylosis. Mild compression deformities of the lumbar vertebral bodies. Severe degenerative disc disease. CT/Abdomen/Pelvis without Cont IMPRESSION: 1. No acute abdominopelvic finding. 2. Scattered tiny pulmonary nodules, likely scarring or noncalcified granulomas. Comparison to prior imaging recommended. If no imaging available, follow-up CT chest in 1 month is recommended to evaluate for stability. Reading Location: [facility] CC: Dr. Perfecto Warner MD; Dr. Yomi Le, DO Driver'S License Reviewing Officer: Signed Normal [facility] Absolute lymphocyte countOrd ered By: Yomi Velazco on 01-23-2025 Lymphocytes Auto (Unsp spec) [#/Vol] 1.24 10*3/uL 0.83-4.51 [facility] Absolute neutrophil countOrd ered By: Yomi Velazco on 01-23-2025 Neutrophils (Bld) [#/Vol] 3.5 10*3/uL 2.0-7.7 [facility] Anion gap in Serum or Plasma Ordered By: Yomi Velazco on 01-23-2025 Anion gap [Moles/Vol] 12 mmol/L 01-12 [facility] Automated lymphocyte count a s percentage of total leukocytesOrdered By: Yomi Velazco on 01-23-2025 Lymphocytes/100 WBC Auto (Unsp spec) 22.7 % [facility] BUN/creatinine ratioOrdered By: Yomi Velazco on 01-23-2025 Urea nitrogen/Creatinine [Mass ratio] 14.7 mg/mg 06-19 [facility] Basic Metabolic Profile (BMP )on 01-23-2025 BUN/CRE 14.7 RATIO Normal 06-19 [facility] Comment on above: Performed By: #### L 500.2500, L100.0100 #### [facility] [address] [place], [address] Calcium [Mass/Vol] 9.3 mg/dL Normal 7.6-11.0 [facility] Comment on above: Performed By: #### L 500.2500, L100.0100 #### [facility] [address] [place], [address] Chloride [Moles/Vol] 101 mmol/L Normal 98-108 [facility] Comment on above: Performed By: #### L 500.2500, L100.0100 #### [facility] [address] [place], [address] CO2 [Moles/Vol] 21.1 mmol/L Normal 21.0-32.0 [facility] Comment on above: Performed By: #### L 500.2500, L100.0100 #### [facility] [address] [place], [address] Creatinine [Mass/Vol] 1.01 mg/dL Normal 0.70-1.20 [facility] Comment on above: Performed By: #### L 500.2500, L100.0100 #### [facility] [address] [place], [address] ECRCL 59.76 ml/min Normal 50-250 [facility] Comment on above: Performed By: #### L 500.2500, L100.0100 #### [facility] [address] [place], [address] GAP 12 Normal 5-15 [facility] Comment on above: Performed By: #### L 500.2500, L100.0100 #### [facility] [address] [place], [address] GFR/1.73 sq M.predicted among non-blacks MDRD (S/P/Bld) [Vol rate/Area] 73 mL/min/{1.73_m2} Normal >60 [facility] Comment on above: Result Comment: mL/m in/1.73m2 CKD-EPI Creatinine Equation (2020) Performed By: #### L 500.2500, L100.0100 #### [facility] [address] [place], [address] Glucose [Mass/Vol] 129 mg/dL High 70-99 [facility] Comment on above: Performed By: #### L 500.2500, L100.0100 #### [facility] [address] [place], [address] Potassium [Moles/Vol] 4.4 mmol/L Normal 3.3-5.1 [facility] Comment on above: Performed By: #### L 500.2500, L100.0100 #### [facility] [address] [place], [address] Sodium [Moles/Vol] 134 mmol/L Normal 133-145 [facility] Comment on above: Performed By: #### L 500.2500, L100.0100 #### [facility] [address] [place], [address] Urea nitrogen [Mass/Vol] 15 mg/dL Normal 4-19 [facility] Comment on above: Performed By: #### L 500.2500, L100.0100 #### [facility] [address] [place], [address] Basophil percentageOrdered B y: Yomi Le on 01-23-2025 Basophils/100 WBC (Bld) 0.7 % 0-1 [facility] Bilirubin Test strip Ql (U)O rdered By: Yomi Le on 01-23-2025 Bilirubin Ql (U) Negative Negative [facility] CBC W/Diff, Automatedon 12-30 Absolute Lymph 1.24 X10 3/uL Normal 0.83-4.51 [facility] Comment on above: Performed By: #### L 500.2500, L100.0100 #### [facility] [address] [place], [address] Absolute Neut 3.5 X10 3/uL Normal 2.0-7.7 [facility] Comment on above: Performed By: #### L 500.2500, L100.0100 #### [facility] [address] [place], [address] Basophils/100 WBC (Bld) 0.7 % Normal 0-1 [facility] Comment on above: Performed By: #### L 500.2500, L100.0100 #### [facility] [address] [place], [address] Eosinophils/100 WBC (Bld) 2.0 % Normal 0-5 [facility] Comment on above: Performed By: #### L 500.2500, L100.0100 #### [facility] [address] [place], [address] Erythrocyte distribution width (RBC) [Ratio] 13.2 % Normal 11.6-14.6 [facility] Comment on above: Performed By: #### L 500.2500, L100.0100 #### [facility] [address] [place], [address] Hematocrit (Bld) [Volume fraction] 36.2 % Low 40-54 [facility] Comment on above: Performed By: #### L 500.2500, L100.0100 #### [facility] [address] [place], [address] Hemoglobin (Bld) [Mass/Vol] 12.2 g/dL Low 13.0-16.5 [facility] Comment on above: Performed By: #### L 500.2500, L100.0100 #### [facility] [address] [place], [address] IG% 0.400 Normal 0.0-0.9 [facility] Comment on above: Result Comment: IG% - Immature Granulocytes (promyelocytes, myelocytes and metamyelocytes) > 1% indicates that a LEFT SHIFT is Present. Performed By: #### L 500.2500, L100.0100 #### [facility] [address] [place], [address] Lymphocytes/100 WBC (Bld) 22.7 % Normal 19-41 [facility] Comment on above: Performed By: #### L 500.2500, L100.0100 #### [facility] [address] [place], [address] MCH (RBC) [Entitic mass] 30.3 pg Normal 27.0-32.0 [facility] Comment on above: Performed By: #### L 500.2500, L100.0100 #### [facility] [address] [place], [address] MCHC (RBC) [Mass/Vol] 33.7 g/dL Normal 32-36 [facility] Comment on above: Performed By: #### L 500.2500, L100.0100 #### [facility] [address] [place], [address] MCV (RBC) [Entitic vol] 90.0 fL Normal 80-94 [facility] Comment on above: Performed By: #### L 500.2500, L100.0100 #### [facility] [address] [place], [address] Monocytes/100 WBC (Bld) 9.5 % Normal 0-10 [facility] Comment on above: Performed By: #### L 500.2500, L100.0100 #### [facility] [address] [place], [address] Neutrophils/100 WBC (Bld) 64.7 % Normal 47-70 [facility] Comment on above: Performed By: #### L 500.2500, L100.0100 #### [facility] [address] [place], [address] Nucleated RBC (Bld) [#/Vol] 0 10*3/uL Normal 0-5 [facility] Comment on above: Performed By: #### L 500.2500, L100.0100 #### [facility] [address] [place], [address] Platelet mean volume (Bld) [Entitic vol] 8.6 fL Normal 6.2-12.0 [facility] Comment on above: Performed By: #### L 500.2500, L100.0100 #### [facility] [address] [place], [address] Platelets (Bld) [#/Vol] 204 10*3/uL Normal 150-450 [facility] Comment on above: Performed By: #### L 500.2500, L100.0100 #### [facility] [address] [place], [address] RBC (Bld) [#/Vol] 4.02 10*6/uL Low 4.6-6.2 [facility] Comment on above: Performed By: #### L 500.2500, L100.0100 #### [facility] [address] [place], [address] RDW SD 43.0 fl Normal 35.1-43.9 [facility] Comment on above: Performed By: #### L 500.2500, L100.0100 #### [facility] [address] [place], [address] WBC (Bld) [#/Vol] 5.5 10*3/uL Normal 4.4-11.0 [facility] Comment on above: Performed By: #### L 500.2500, L100.0100 #### [facility] [address] [place], [address] Carbon dioxide, total [Moles /volume] in Central venous bloodOrdered By: Yomi Velazco on 01-23-2025 CO2 [Moles/Vol] 21.1 mmol/L 21.0-32.0 [facility] Chloride assayOrdered By: Alex Velazco on 01-23-2025 Chloride [Moles/Vol] 101 mmol/L 98-108 [facility] Emergency Department Summary on 01-23-2025 Emergency Department Summary [facility] Medical Records Department [address] [place] [address] Emergency Department Summary 01/23/25 MR#: [id number] Acct: [id number] Name: TANISHA SALTER Rep #: [id number] : 1940 84 From: Yomi Rajan PCP: Dr. Perfecto Warner MD Status:DEP ER Location: ED HPI HPI - GI History of Present Illness Chief Complaint: Abd Pain Informant: patient and family Narrative Narrative: Your daughter for evaluation pain right side abdomen started 2 hours ago. Intermittent sharp twinge sensations multiple episodes currently has no symptoms. No urinary symptoms. No fever or chills. States prostate cancer with prostatectomy in the past with radioactive seeding. Left testicular removal secondary to cancer. No history of kidney stones. No nausea or vomiting. States they looked up right sided symptoms appendicitis was noted. Kidney stones were noted. They are here for evaluation. Prior similar symptoms: No PFSH PFSH Medical History Indwelling urethral catheter present Constipation Wears dentures Cancer Diabetes Arthritis High cholesterol Back pain Testicular cancer Home Medications ???Medication ???Instructions ???Recorded ???Last Taken ???Type metformin 500 mg tablet,extended 500 mg PO DAILY 09/07/18 Unknown H istory release 24 hr Tamsulosin Hcl 0.4 mg PO DAILY 07/13/23 Unknown H istory lisinopril 5 mg tablet 5 mg PO DAILY 01/11/24 Unknown His tory aspirin 81 mg chewable tablet 81 mg PO QDAY 07/18/24 Unknown His tory meloxicam 7.5 mg tablet 7.5 mg PO QDAY 07/18/24 Unknown Hi story rosuvastatin 20 mg tablet 20 mg PO QDAY 07/18/24 Unknown His tory Allergy/AdvReac Type Severity Reaction Status Date / Time Sulfa (Sulfonamide Allergy Fever and Verified 01/23/25 14:51 Antibiotics) skin rash Tetanus Vaccines and Toxoid Allergy Rash Verified 01/23/25 14:51 meperidine (From Demerol) AdvReac Vomiting Verified 01/23/25 14:51 Family History Father Heart disease Diabetes Mother Myocardial infarction Alzheimer disease Grandmother Cancer Sister Breast cancer Surgical History S/P TURP (status post transurethral resection of prostate) Hx of cystoscopy Hx of knee surgery History of removal of testicle Social History Smoking Status: Former smoker pack-years: 30 Tobacco: How many years used: 30 alcohol intake: current alcohol intake frequency: holidays/special occasions only substance use type: does not use diet: diabetic ROS ROS ED Constitutional Constitutional ED: Denies fever(s) Cardiovascular Cardiovascular: Denies chest pain Respiratory/Chest Respiratory/Chest: Denies cough Gastrointestinal Gastrointestinal: Reports abdominal pain; Denies diarrhea or vomiting Genitourinary Genitourinary ED: Denies dysuria, hematuria or urinary frequency Musculoskeletal Musculoskeletal: Denies none Integumentary Denies rash or wounds Neurologic Neurologic: Denies weakness EXAM Physical Exam Const Vital Signs: 01/23/25 14:51 Temperature 97 F L Temperature Source Temporal Pulse Rate 84 Respiratory Rate 14 Blood Pressure 143/67 H Blood Pressure Mean 92 Pulse Ox 98 Oxygen Delivery Method Room Air Positive well nourished and well developed General Appearance ED: well developed and NAD HEENT Reports moist mucous membranes normocephalic and atraumatic Eyes General Eye ED: Yes normal appearance of both eyes Neck full ROM Chest Wall Chest: Negative for tenderness Resp normal respiratory effort and normal air movement Effort and Inspection: symmetric chest movement; Negative for respiratory distress Cardio regular rate, regular rhythm and no murmurs Peripheral Pulses: pulses 2+ throughout GI normal to inspection, nondistended, normoactive bowel sounds and non-tender GI Narrative: Negative Bartlett's or McBurney's tenderness. Palpation: Negative for guarding or rebound tenderness present Back/Spine no CVA tenderness Extremity normal to inspection General Extremety ED: Negative for edema or tenderness General Extremity: Negative for edema Neuro oriented x3 and no sensory deficits noted Sensorium / Orientation: awake and alert Skin no rashes or lesions noted and no wounds MDM MDM MDM Narrative Medical decision making narrative: Interventions / MDM: Differential diagnosis: Nonspecific abdominal pain, pulmonary nodules Diagnosis considered but do not suspect: Appendicitis, kidney stones however CT negative. My EKG interpretation: N/A Imaging independently reviewed and interpreted by myself: CT abdomen pelvis: No obstructiv (more content not included)... Normal [facility] Eosinophil percentageOrdered By: Yomi Velazco on 01-23-2025 Eosinophils/100 WBC (Bld) 2.0 % 0-5 [facility] Erythrocyte distribution wid th ratioOrdered By: Yomi Velazco on 01-23-2025 Erythrocyte distribution width (RBC) [Ratio] 13.2 % 11.6-14.6 [facility] Erythrocyte distribution wid th standard deviationOrdered By: Yomi Velazco on 01-23-2025 Erythrocyte distribution width (RBC) [Ratio] 43.0 fl 35.1-43.9 [facility] Glomerular filtration rate ( GFR) estimation/1.73 sq m using serum, plasma, or whole bOrdered By: Yomi Velazco on 01-23-2025 GFR/1.73 sq M.predicted among non-blacks MDRD (S/P/Bld) [Vol rate/Area] 73 mL/min/{1.73_m2} >60 [facility] Comment on above: mL/min/1.73m2 CKD-EP I Creatinine Equation (2020) Hematocrit Auto (Bld) [Volum e fraction]Ordered By: Yomi Velazco on 01-23-2025 Hematocrit (Bld) [Volume fraction] 36.2 % Low 40-54 [facility] Hemoglobin measurementOrdere d By: Yomi Velazco on 01-23-2025 Hemoglobin (Bld) [Mass/Vol] 12.2 g/dL Low 13.0-16.5 [facility] Immature granulocytes/100 WB C Auto (Bld)Ordered By: Yomi Velazco on 01-23-2025 Immature granulocytes/100 WBC (Bld) 0.400 % 0.0-0.9 [facility] Comment on above: IG% - Immature Granu locytes (promyelocytes, myelocytes and metamyelocytes) > 1% indicates that a LEFT SHIFT is Present. Ketones Test strip Ql (U)Ord ered By: Yomi Velazco on 01-23-2025 Ketones Ql (U) Negative Negative [facility] MCV (mean corpuscular volume ) determinationOrdered By: Yomi Velazco 01-23-2025 MCV (RBC) [Entitic vol] 90.0 fL 80-94 [facility] Mean corpuscular hemoglobin (MCH) determinationOrdered By: Yomi Velazco 01-23-2025 MCH (RBC) [Entitic mass] 30.3 pg 27.0-32.0 [facility] Mean corpuscular hemoglobin concentration (MCHC) determinationOrdered By: Yomi Velazco on 01-23-2025 MCHC (RBC) [Mass/Vol] 33.7 g/dL 32-36 [facility] Mean platelet volume determi nationOrdered By: Yomi Velazco 01-23-2025 Platelet mean volume (Bld) [Entitic vol] 8.6 fL 6.2-12.0 [facility] Microscopic analysis of urin e for red blood cells (RBC)Ordered By: Yomi Velazco on 01-23-2025 Microscopic analysis of urine for red blood cells (RBC) 0 SEEN /hpf 0-5 [facility] Monocyte percentageOrdered B y: Yomi Velazco on 01-23-2025 Monocytes/100 WBC (Bld) 9.5 % 0-10 [facility] Mucus LM Ql (Urine sed)Order ed By: Yomi Velazco on 01-23-2025 Mucus Ql (Urine sed) 0 SEEN /hpf [facility] Neutrophil percentageOrdered By: Yomi Velazco on 01-23-2025 Neutrophils/100 WBC (Bld) 64.7 % 47-70 [facility] Nitrite Test strip Ql (U)Ord ered By: Yomi Velazco on 01-23-2025 Nitrite Ql (U) Negative Negative [facility] Nucleated red blood cell per centageOrdered By: Yomi Velazco on 01-23-2025 Nucleated RBC/100 WBC (Bld) [Ratio] 0 % 0-5 [facility] Platelet countOrdered By: Alex Velazco on 01-23-2025 Platelets (Bld) [#/Vol] 204 10*3/uL 150-450 [facility] Potassium measurement (mass/ volume)Ordered By: Yomi Velazco on 01-23-2025 Potassium (Unsp spec) [Mass/Vol] 4.4 mmol/L 3.3-5.1 [facility] Protein Test strip Ql (U)Ord ered By: Yomi Velazco on 01-23-2025 Protein Ql (U) 30 mg/dl High Negative [facility] RBC Auto (Bld) [#/Vol]Ordere d By: Yomi Velazco on 01-23-2025 RBC (Bld) [#/Vol] 4.02 10*6/uL Low 4.6-6.2 [facility] Serum creatinine measurement (mass/volume)Ordered By: Yomi Velazco on 01-23-2025 Creatinine [Mass/Vol] 1.01 mg/dL 0.70-1.20 [facility] Serum glucose measurement (m ass/volume)Ordered By: Yomi Velazco on 01-23-2025 Glucose [Mass/Vol] 129 mg/dL High 70-99 [facility] Serum or plasma calcium alfredo urement (mass/volume)Ordered By: Yomi Velazco on 01-23-2025 Calcium [Mass/Vol] 9.3 mg/dL 7.6-11.0 [facility] Serum or plasma urea nitroge n measurement (mass/volume)Ordered By: Yomi Velazco on 01-23-2025 Urea nitrogen [Mass/Vol] 15 mg/dL 4-19 [facility] Sodium levelOrdered By: Yomi Velazco on 01-23-2025 Sodium [Moles/Vol] 134 mmol/L 133-145 [facility] Squamous epithelial cells de tection in urine sediment by light microscopyOrdered By: Yomi Velazco on 01-23-2025 Epithelial cells.squamous LM Ql (Urine sed) 0-5 SEEN /hpf 0-5 [facility] Urinalysis, Completeon 01-23 EPI,SQUAMOUS 0-5 SEEN Normal 0-5 [facility] Comment on above: Order Comment: CLEAN CATCH Performed By: #### L [id number] #### [facility] [address] [place], [address] WBC 0-5 SEEN Normal 0-5 [facility] Comment on above: Order Comment: CLEAN CATCH Performed By: #### L [id number] #### [facility] [address] [place], [address] BACTERIA 0 SEEN Normal None Seen [facility] Comment on above: Order Comment: CLEAN CATCH Performed By: #### L [id number] #### [facility] [address] [place], [address] Mucus Ql (Urine sed) 0 SEEN Normal [facility] Comment on above: Order Comment: CLEAN CATCH Performed By: #### L [id number] #### [facility] [address] [place], [address] RBC 0 SEEN Normal 0-5 [facility] Comment on above: Order Comment: CLEAN CATCH Performed By: #### L [id number] #### [facility] [address] [place], [address] Urine clarityOrdered By: Maciej Velazco on 01-23-2025 Clarity (U) Clear Clear [facility] Urine color determinationOrd ered By: Yomi Velazco on 01-23-2025 Color (U) Yellow Yellow [facility] Urine cultureOrdered By: Maciej Velazco on 01-23-2025 Bacteria identified Cx Nom (U) Culture exhibits no growth. [facility] Urine glucose detectionOrder ed By: Yomi Velazco on 01-23-2025 Glucose Ql (U) Normal mg/dl Normal [facility] Urine leukocyte esterase det ection by dipstickOrdered By: Yomi Velazco on 01-23-2025 Leukocyte esterase Test strip Ql (U) 25 /ul High Negative [facility] Urine pHOrdered By: Yomi Velazco on 01-23-2025 pH (U) 6.0 [pH] 5.0 - 8.0 [facility] Urine sediment bacteria coun t by microscopy (number/high power field)Ordered By: Yomi Velazco on 01-23-2025 Bacteria LM.HPF (Urine sed) [#/Area] 0 /[HPF] None Seen [facility] Urine specific gravity measu rementOrdered By: Yomi Velazco on 01-23-2025 Specific gravity (U) [Rel density] 1.015 1.002-1.030 [facility] Urine urobilinogen measureme ntOrdered By: Yomi Velazco on 01-23-2025 Urobilinogen Ql (U) Normal mg/dl Normal [facility] White blood cell (WBC) count Ordered By: Yomi Velazco on 01-23-2025 WBC (Bld) [#/Vol] 5.5 10*3/uL 4.4-11.0 [facility] White blood cell countOrdere d By: Yomi Velazco on 01-23-2025 White blood cell count 0-5 SEEN /hpf 0-5 [facility] CNOVon 12-20-2024 CNOV Office Visit (PODIWS ) JOIETANISHA ([id number]) 1940 M Date Time Provider Department 12/20/24 8:15 AM LUCINDA KOHLER During your visit today, we recorded the following information about you: Evelina Carr LPN 12/20/2024 8:22 AM Signed AMB ROOMING INTAKE FLOWSHEET DATA Patient presents with: Left Foot - Established Patient, Follow Up, Diabetic Foot Check Right Foot - Established Patient, Follow Up, Diabetic Foot Check RICHARD Rajput Matthew 12/20/2024 8:22 AM Signed Last saw pcp: 11/08/24 Subjective: Patient presents to clinic c/o painful toenails. They state that the nails are especially painful with shoe gear and pressure. Patient states that nails b/l hallux are painful. Patient admits to being diabetic. No other pedal complaints at this time. Patient states no change in medications or medical history since last visit. Objective: Patient presents to clinic ambulating in [facility] Vasc: DP and PT pulses are faintly [...] bilateral were debrided in length and thickness. We discussed the possible etiologies of discolored, dystrophic, and thickened nails including fungus, yeast, mold as well as in some instances, prior trauma, or mechanical causes such as repetitive microtrauma in shoe gear. We discussed topical medication for discolored toenails which has very low success but no major side effects. We discussed oral medication. Patient will need hepatic testing prior to use. Patient informed of risks associated with Lamisil. We discussed removal of toenails. Patient has already tried topical medication. He may consider other options. Patient was instructed on the continued importance of diabetic foot care along with proper diet and keeping their blood sugar under control to prevent complications. I stressed the importance of avoiding barefoot walking, wearing good shoes and inspection of feet. I discussed how this patient suffers from neuropathy and that it is important that she monitor for any open wounds. If he develops any issues, he is to contact our office immediately and we will have them seen. Patient is to RTC in 3-4 months. 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 - aspirin, enteric coated (ADULT LOW DOSE ASPIRIN) 81 mg EC tablet Take 1 tablet by mouth once daily. - lisinopril (ZESTRIL) 5 mg tablet Take 1 tablet by mouth once daily. - metFORMIN (GLUCOPHAGE) 1,000 mg tablet Take 0.5 tablets by mouth once daily. - meloxicam (MOBIC) 7.5 mg tablet Take 7.5 mg by mouth once daily. - Lancets Test blood sugar(s) 1 to 2 times daily. Dx: Type 2 DM - Controlled E11.9 Insulin: No - blood sugar diagnostic (BLOOD GLUCOSE TEST) test strip Test blood sugar(s) 1-2 times daily. Dx: Type 2 DM - Controlled E11.9 Insulin: No - tamsulosin (FLOMAX) 0.4 mg Take 0.4 mg by mouth once daily. Problem List As Of Date 12/20/2024 Noted Resolved Diabetes me (more content not included)... Normal [facility] Orthopedic Visit Reporton Orthopedic Visit Report [facility] [address] [place] [address] OFFICE VISIT Date of Service: 11/25/24 MR#: [id number] Acct: [id number] Name: TANISHA SALTER Rep #: [id number] : 1940 Provider: Dr. Dandy Dallas MD Age/Sex: 84/M Location: [facility] Status: Signed Intake Vital Signs 09/08/24 09:04 10/24/24 13:59 11/25/24 08:24 Height 6 ft 6 ft 6 ft Weight: 197 lb 185 lb BMI 26.7 25.0 Intake Visit Reasons: LUMBAR SPINE Chief Complaint: Lumbar spine pain Accompanied by: Daughter Is patient in pain?: Yes Pain scale (1-10): 8 Allergies Sulfa (Sulfonamide Antibiotics) Allergy (Verified 11/25/24 08:26) Fever and skin rash Tetanus Vaccines and Toxoid Allergy (Verified 11/25/24 08:26) Rash meperidine (From Demerol) Adverse Reaction (Verified 11/25/24 08:26) Vomiting Medications ???Medication ???Instructions ???Recorded ???Confirmed ???Type metformin 500 mg tablet,extended 500 mg PO DAILY 09/07/18 11/25/24 History release 24 hr Tamsulosin Hcl 0.4 mg PO DAILY 07/13/23 11/25/24 History lisinopril 5 mg tablet 5 mg PO DAILY 01/11/24 11/25/24 Hi story aspirin 81 mg chewable tablet 81 mg PO QDAY 07/18/24 11/25/24 Hi story meloxicam 7.5 mg tablet 7.5 mg PO QDAY 07/18/24 11/25/24 H istory rosuvastatin 20 mg tablet 20 mg PO QDAY 07/18/24 11/25/24 Hi story Have you fallen in the past year?: No PFSH Medical History Indwelling urethral catheter present Constipation Wears dentures Cancer Diabetes Arthritis High cholesterol Back pain Testicular cancer Surgical History S/P TURP (status post transurethral resection of prostate) Hx of cystoscopy Hx of knee surgery History of removal of testicle Family History Father Heart disease Diabetes Mother Myocardial infarction Alzheimer disease Grandmother Cancer Sister Breast cancer Social History Smoking Status: Former smoker pack-years: 30 Tobacco: How many years used: 30 alcohol intake: current alcohol intake frequency: holidays/special occasions only substance use type: does not use diet: diabetic HPI LUMBAR SPINE Details: This documentation accurately reflects the service provided and the decisions made by me, Dr. Dandy Dallas MD 11/25/24 0823. Part of today???s visit was documented by Tana Heller MA and Fely Alvarado RN, acting as scribe. TANISHA SALTER is a 84 year old M here today for lumbar spine pain. This has been going on for 10 years. Daughter states that he should of gotten surgery a long time ago. The pain is located in the lower back. When standing and walking the pain is sharp and stabbing. At times he will get pain in both legs, but the right leg hurts the most. Denies any numbness in the toes or in the feet. Denies any back surgery in the past. Patient has been getting back injections since last year by Dr. Abraham and Dr. Lam. The injections didn't work. he did get an MRI on 11/10/2024 at the [facility].Patient did water therapy at the end of 2023, it didn't help. Patient would like to go over the MRI results today. His balance is questionable. Patient uses a cane for comfort and less pain when putting full weight on his feet when walking. He is not able to stand for long periods, he has to sit frequently. He does take a baby Aspirin daily for a small abdominal aortic aneurism. He has not had scans to check his bone density. He is a diabetic but states it is well controlled. 09/08/24: TANISHA SALTER is a 84 year old M here today NEW patient for low back pain referred by Dr. Abraham. He has had pain for a few years but over time it has gotten worse. His pain is across the low back but the right side is worse. At times he does get radiating pain down the right leg. Denies numbness, tingling or other associated symptoms. He first started seeing Dr. Lam for pain management and had 1 epidural and 3 medial branch blocks with no relief and then started seeing Dr. Abraham and he did 2 epidural injections. He states that when he goes for the injections the anesthesia helps take away the pain but by the time it wears off he has pain again. His last injection was 07/12/24. He has done water therapy for the pain but states that it didn't help. Dr. Abraham did prescribe him Meloxicam which he states doesn't help him and if it does it is very minimal. Patient does not remember if he has had an MRI at an outside institution of his lumbar spine. Patient and family member were able to find a report of a CT lumbar spine from January 2023 from [facility] but no MRIs done recently. (more content not included)... Normal [facility] CNOVon 11-15-2024 CNOV Office Visit (PERVMN ) TANISHA SALTER ([id number]) 1940 M Date Time Provider Department 11/15/24 9:45 AM DIANNA VALENCIA During your visit today, we recorded the following information about you: Pulse Blood pressure Weight 70/minute 130/56 88 kg Dianna Valencia MD 11/15/2024 11:49 AM [facility] [place] Jeanne Tristan Department of Cardiovascular Medicine SECTION OF VASCULAR MEDICINE OUTPATIENT VISIT DATE November 15, 2024 OUTPATIENT VISIT TYPE CONSULT Name: Tanisha Salter Tanisha Salter is a 84 year old male with a past history as outlined below presenting today for initial Vascular Medicine consult regarding abnormal vascular imaging. . EMR and chart reviewed. Born 1940 in [place], lived there for 30 years. Healthy as a child, no developmental milestone issues. No congenital limb discrepancy or vascular malformations. FH reviewed for any significant vascular issues.FH of heart disease. Extensive records reviewed including progress notes, specialty consultations, procedure notes, hospital notes, labs, vascular testing, triage notes, and available applicable information in regard to initial vascular consultation. Referral information and appropriate triages were perused as well. Records, charts and EMR perused and reviewed at length prior to initial visit as necessary. PMH reviewed. No history of stroke, LA, TIA. No history of VTE or thrombophila. History of testicular and prostate cancer. Had 5 weeks of RT.. No history of HTN, or hyperlipidemia. Patient has a history of spinal stenosis and chronic back pain and sees pain management. He has a history of BPH and prostate cancer. He follows with oncology. He has a history of hypertension, hyperlipidemia, and diabetes. Patient follows closely with his primary care team. At his recent visit and abdominal aorta ultrasound was ordered and showed a mildly dilated aorta at 2.4 cm which was similar to his CT scan from last year. He was noted to have evidence of atherosclerosis and concern for aortic disease and was recommended a vascular medicine evaluation. Patient presented to [facility] in May 2024 towards this end. Patient has chronic back pain from spinal stenosis. Uses cane, LBP only, no calf, buttock or thigh claudication. No digital color changes. No limb swelling or new skin changes. No neurovascular symptoms. No chest pain, SOB or SALAZAR. Medications reviewed and discussed, on metformin, statin and ACEI. Aspirin naive. Lives in [place]. Daughter accompanied patient at the time of initial consultation. Has two daughters, one lives close by. Quit smoking in the . No special diet. Used to exercise but back issues preclude some of his exercises. Retired from [employer], moved to [place] about 6 years ago. Is a . Has 6 grand kids. Used to play [employer], likes the beach and to travel. Patient was seen in May 2024 for for initial vascular medicine consultation as outlined above. The patient presented to the main campus in October 2024 for follow-up. Today on interview, the patient feels well and is compliant with his medications. Follows well with his PCP. Of note, is having significant back pain from his spine, which is being managed elsewhere. He denies chest pain, SOB, abdominal pain, or claudication. Patient has no new leg swelling. He is compliant with medications. 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 s/p radiation Spinal stenosis lumbar. Dr. Abraham Testicular cancer ([facility]) radiation- PAST SURGICAL HISTORY Procedure Laterality Date COLONOSCOPY 2011 normal CYSTOSCOPY 08/2023 HEMORRHOIDECTOMY 1960s ORCHIECTOMY SIMPLE Left 1982 testicular cancer, with radiation PAST SURGICAL HISTORY OF Left knee arthroscopy PAST SURGICAL HISTORY OF 10/2023 Bladder Surgery PAST SURGICAL HISTORY OF 10/09/2023 Revised surgery on bladder neck Dr. Lundberg TONSILLECTOMY HX childhood TRANSURETHRAL ELEC-SURG PROSTATECTOM 06/25/2022 FAMILY HISTORY Problem Relation Age of Onset Alzheimer's Disease Mother Heart Mother Diabetes Father Heart Father Cancer Sister No Known Problems Brother No Known Problems Maternal Grandmother No Known Problems Maternal Grandfather Diabetes Paternal Grandmother No Known Problems Paternal Grandfather Colon Cancer No Family History Review of Systems: Reviewed and completed per patient questionnaire, all others negative unless otherwise stated in the HPI. Const: Denies anorexia, fever (more content not included)... Normal [facility] Magnetic resonance imaging r eportOrdered By: June Parisi on 11-13-2024 Study report [facility] Imaging Services [address] [place] [address] Spine Lumbar (Routine) MR#: [id number] Acct: [id number] Name: TANISHA SALTER Rep #: [id number] : 1940 M 84 From: Wilmer Parisi DO PCP: Dr. Perfecto Warner MD Status: REG CLI Study:Spine Lumbar (Routine) Date of Exam: 11/10/24 Exam# [id number] Ordering Dr: Leila Dallas MD PROCEDURE: MRI lumbar spine without IV contrast REASON FOR EXAM: PAIN TECHNIQUE: Multisequence multiplanar MR images of the lumbar spine were obtained without the administration of intravenous contrast. Imaging sequences were performed to best display suspected pathology. COMPARISON: None. FINDINGS: Vertebral body heights are within normal limits. Negative for fracture or marrow replacement. Mild degenerative endplate edema at L2-3. Mild dextroscoliosis. Degenerative grade 1 anterolisthesis of L2-3. Conus medullaris is within normal limits and terminates at L1. Mild paraspinal muscle atrophy. L1-2: Minimal posterior disc bulge. Mild bilateral facet arthrosis and ligamentum flavum hypertrophy. No significant spinal stenosis. Mild left foraminal narrowing. L2-3: Grade 1 anterolisthesis with uncovering of the disc. Superimposed mild posterior disc bulge. Severe bilateral facet arthrosis and ligamentum flavum hypertrophy. Severe spinal stenosis with narrowing of the thecal sac measuring 5 mm. Mild/moderate right and moderate/severe left foraminal narrowing. L3-4: Posterior disc bulge. Moderate bilateral facet arthrosis. Ligamentum flavum hypertrophy. Mild/moderate spinal stenosis. Moderate bilateral foraminal narrowing. L4-5: Mild posterior disc bulge eccentric to the right. Mild bilateral facet arthrosis and ligamentum flavum hypertrophy. No significant spinal stenosis. Mild narrowing of the right lateral recess. Mild right foraminal narrowing. L5-S1: Minimal posterior disc bulge. Mild bilateral facet arthrosis. No significant spinal stenosis or foraminal narrowing. MRI/Spine Lumbar (Routine) IMPRESSION: 1. Acquired severe spinal stenosis at L2-3. 2. Acquired mild/moderate spinal stenosis at L3-4. 3. Varying degrees of acquired multilevel foraminal narrowing, greatest on the left at L2-3. 4. Grade 1 anterolisthesis of L2-3. Mild dextroscoliosis. Reading Location: [place] CC: Dr. Dandy Dallas MD; Dr. Perfecto Warner MD ~ Driver'S License Reviewing Officer: Signed [facility] Spine Lumbar (Routine)on Spine Lumbar (Routine) [facility] Imaging Services [address] [place] [address] Spine Lumbar (Routine) MR#: [id number] Acct: [id number] Name: TANISHA SALTER Rep #: [id number] : 1940 M 84 From: June De Los Santos PCP: Dr. Perfecto Warner MD Status: REG CLI Study: Spine Lumbar (Routine) Date of Exam: 11/10/24 Exam# [id number] Ordering Dr: Dandy Dallas MD PROCEDURE: MRI lumbar spine without IV contrast REASON FOR EXAM: PAIN TECHNIQUE: Multisequence multiplanar MR images of the lumbar spine were obtained without the administration of intravenous contrast. Imaging sequences were performed to best display suspected pathology. COMPARISON: None. FINDINGS: Vertebral body heights are within normal limits. Negative for fracture or marrow replacement. Mild degenerative endplate edema at L2-3. Mild dextroscoliosis. Degenerative grade 1 anterolisthesis of L2-3. Conus medullaris is within normal limits and terminates at L1. Mild paraspinal muscle atrophy. L1-2: Minimal posterior disc bulge. Mild bilateral facet arthrosis and ligamentum flavum hypertrophy. No significant spinal stenosis. Mild left foraminal narrowing. L2-3: Grade 1 anterolisthesis with uncovering of the disc. Superimposed mild posterior disc bulge. Severe bilateral facet arthrosis and ligamentum flavum hypertrophy. Severe spinal stenosis with narrowing of the thecal sac measuring 5 mm. Mild/moderate right and moderate/severe left foraminal narrowing. L3-4: Posterior disc bulge. Moderate bilateral facet arthrosis. Ligamentum flavum hypertrophy. Mild/moderate spinal stenosis. Moderate bilateral foraminal narrowing. L4-5: Mild posterior disc bulge eccentric to the right. Mild bilateral facet arthrosis and ligamentum flavum hypertrophy. No significant spinal stenosis. Mild narrowing of the right lateral recess. Mild right foraminal narrowing. L5-S1: Minimal posterior disc bulge. Mild bilateral facet arthrosis. No significant spinal stenosis or foraminal narrowing. MRI/Spine Lumbar (Routine) IMPRESSION: 1. Acquired severe spinal stenosis at L2-3. 2. Acquired mild/moderate spinal stenosis at L3-4. 3. Varying degrees of acquired multilevel foraminal narrowing, greatest on the left at L2-3. 4. Grade 1 anterolisthesis of L2-3. Mild dextroscoliosis. Reading Location: [place] CC: Dr. Dandy Dallas MD; Dr. Perfecto Warner MD Driver'S License Reviewing Officer: Signed [facility] 11-08-2024 [facility] Office Visit (FAMPWS ) TANISHA SALTER ([id number]) 1940 M Date Time Provider Department 11/08/24 8:00 AM YOLANDE WARNER During your visit today, we recorded the following information about you: Pulse Respiration Blood pressure Weight 73/minute 16/minute 110/62 88.4 kg Yolande Wraner MD 11/08/2024 9:03 AM Signed Chief Complaint Patient presents with: Follow Up: 6 month HPI Tanisha Salter is a 84 year old male who presents here today [...] HgA1C was Hemoglobin A1C (%) Date Value 11/04/2024 6.4 05/09/2024 6.3 10/18/2021 6.3 04/17/2021 6.4 ) Last Ophthalmology exam was within the past 12 months Last Podiatry exam was within the past 12 months Patient following up with Dr. Abraham pain management for chronic lower back pain and lumbar spinal stenosis. States that he has an MRI scheduled for his lower back in 2 days due to worsening pain in his lower back. Needing cane for ambulation now. Cannot stand for more than 4-5 minutes due to pain. Has had 3 medial branch blocks and 2 ADRIANO without improvement. On Meloxicam tylenol for pain which is not helping either. Not really interested in surgery. 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 Lundberg. Stopped his finasteride at last OV. Taking Flomax. Denies weak stream, straining, dysuria, hematuria. Getting up 2 times at night. Following up with oncology Dr. Haile at [facility] for history of prostate cancer s/p radiation. Last PSA was 0. Rechecking PSA every 6 months. Past medical history, appointments, medications, allergies reviewed. 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 s/p radiation Spinal stenosis lumbar Testicular cancer (HCC) radiation- Previous Surgical History PAST SURGICAL HISTORY Procedure Laterality Date COLONOSCOPY 2011 normal CYSTOSCOPY 08/2023 HEMORRHOIDECTOMY 1960s ORCHIECTOMY SIMPLE Left 1983 testicular cancer, with radiation PAST SURGICAL HISTORY OF Left knee arthroscopy PAST SURGICAL HISTORY OF 10/2023 Bladder Surgery PAST SURGICAL HISTORY OF 10/09/2023 Revised surgery on bladder neck Dr. Lundberg TONSILLECTOMY HX childhood TRANSURETHRAL ELEC-SURG PROSTATECTOM 06/25/2022 Family History FAMILY HISTORY Problem Relation Age of Onset Alzheimer's Disease Mother Heart Mother Diabetes Father Heart Father Cancer Sister No Known Problems Brother No Known Problems Maternal Grandmother No Known Problems Maternal Grandfather Diabetes Paternal Grandmother No Known Problems Paternal Grandfather Colon Cancer No Family History Patient Allergies ALLERGIES Allergen Reactions Demerol [Meperidine] Vomiting Sulfa (Sulfonamide * Unknown Elevated temperature Tetanus Toxoid Hives Current Medications Current Outpatient Medications on File Prior to Visit Medication Sig metFORMIN (GLUCOPHAGE) 1,000 mg tablet Take 0.5 tablets by mouth once daily. rosuvastatin (CRESTOR) 20 mg tablet take 1 tablet by mouth at bedtime meloxicam (MOBIC) 7.5 mg tablet Take 7.5 mg by mouth once daily. albuterol HFA (VENTOLIN HFA) 90 mcg/actuation inhaler Inhale 2 Puffs as instructed every 4 hours as needed for wheezing/shortness of breath. (Patient not taking: Reported on 08/01/2024) Lancets Test blood sugar(s) 1 to 2 times daily. Dx: Type 2 DM - Controlled E11.9 Insulin: No blood sugar diagnostic (BLOOD GLUCOSE TEST) test strip Test blood sugar(s) 1-2 times daily. Dx: Type 2 DM - Controlled E11.9 Insulin: No aspirin, enteric coated (ADULT LOW DOSE ASPIRIN) 81 mg EC tablet Take 1 tablet by mouth once daily. lisinopril (ZESTRIL) 5 mg tablet Take 1 tablet by mouth once daily. tamsulosin (FLOMAX) 0.4 mg Take 0.4 mg by mouth once daily. finasteride (PROSCAR) 5 mg tablet Take 5 mg by mouth once daily. (Patient not taking: Reported on 09/29/2024) No current facility-administered medications on file prior to visit. Social History Social History Tobacco Use Smoking status: Former Current packs/ (more content not included)... Normal [facility] ALBUMIN/CREATININE RATIO, UR INEon 11-04-2024 Albumin Unsp time DL <= 20 mg/L (U) [Mass/Time] 39.5 mg/L Normal [facility] Comment on above: Order Comment: Speci men Type: URINE SPECIMENOrdering Facility: [facility] Address: [address] [place] [address] Performed By: #### U ACR ####[facility]ORATORYCLIA [id number] [address] [place] Albumin/Creatinine (U) [Mass ratio] 26 mg/g Normal <30 [facility] Comment on above: Order Comment: Speci men Type: URINE SPECIMENOrdering Facility: [facility] Address: [address] [place] [address] Result Comment: Adul t Male and Female Nephrotic Criteria: <30 mg/g is considered normal to mildly increased 30-300 mg/g is considered moderately increased >300 mg/g is considered severely increased KDIGO. (2013). KDIGO 2012 Clinical Practice Guideline for the Evaluation and Management of Chronic Kidney Disease. Official Journal of the International Society of Nephrology, 3(1), 1-150. Performed By: #### U ACR ####[facility]ITALIA [id number] [place] [address] [place] Creatinine (U) [Mass/Vol] 154.0 mg/dL Normal 46.8-314.5 [facility] Comment on above: Order Comment: Speci men Type: URINE SPECIMENOrdering Facility: [facility] Address: [address] [place] [address] Performed By: #### U ACR ####[facility] LABORATORYIA [id number] [address] [place] CBC W Auto Differential pane l (Bld)on 11-04-2024 Basophils (Bld) [#/Vol] 0.07 10*3/uL Normal <0.11 [facility] Comment on above: Order Comment: Speci men Type: BLOOD SPECIMENOrdering Facility: [facility] Address: [address] [place] [address] Performed By: #### 5 7021-8 ####[facility] [id number] [address] [place] Basophils/100 WBC (Bld) 1.3 % Normal C [facility] Comment on above: Order Comment: Speci men Type: BLOOD SPECIMENOrdering Facility: [facility] Address: [address] [place] [address] Performed By: #### 5 7021-8 ####[facility] MILLTOWNCLIA [id number] [place] [address] [place] Differential cell count method Nom (Bld) Auto Normal [facility] Comment on above: Order Comment: Speci men Type: BLOOD SPECIMENOrdering Facility: [facility] Address: [address] [place] [address] Performed By: #### 5 7021-8 ####[facility] MILLMAXWELLRUBINLIA [id number] [place] [address] [place] Eosinophils (Bld) [#/Vol] 0.08 10*3/uL Normal <0.46 [facility] Comment on above: Order Comment: Speci men Type: BLOOD SPECIMENOrdering Facility: [facility] Address: [address] [place] [address] Performed By: #### 5 7021-8 ####[facility]AMPUSLIA [id number] [place] [address] [place] Eosinophils/100 WBC (Bld) 1.5 % Normal [facility] Comment on above: Order Comment: Speci men Type: BLOOD SPECIMENOrdering Facility: [facility] Address: [address] [place] [address] Performed By: #### 5 7021-8 ####[facility] SYSTEMSWRUBINLIA [id number] [place] [address] [place] Erythrocyte distribution width (RBC) [Ratio] 12.9 % Normal 11.5-15.0 [facility] Comment on above: Order Comment: Speci men Type: BLOOD SPECIMENOrdering Facility: [facility] Address: [address] [place] [address] Performed By: #### 5 7021-8 ####[facility] ERNCLIA [id number] [place] [address] [place] Hematocrit (Bld) [Volume fraction] 40.0 % Normal 39.0-51.0 [facility] Comment on above: Order Comment: Speci men Type: BLOOD SPECIMENOrdering Facility: [facility] Address: [address] [place] [address] Performed By: #### 5 7021-8 ####[facility] [id number] [place] [address] [place] Hemoglobin (Bld) [Mass/Vol] 13.2 g/dL Normal 13.0-17.0 [facility] Comment on above: Order Comment: Speci men Type: BLOOD SPECIMENOrdering Facility: [facility] Address: [address] [place] [address] Performed By: #### 5 7021-8 ####[facility] [id number] [place] [address] [place] Immature granulocytes (Bld) [#/Vol] 10*3/uL Normal <0.10 [facility] Comment on above: Order Comment: Speci men Type: BLOOD SPECIMENOrdering Facility: [facility] Address: [address] [place] [address] Performed By: #### 5 7021-8 ####[facility] [id number] [place] [address] [place] Immature granulocytes/100 WBC (Bld) 0.4 % Normal [facility] Comment on above: Order Comment: Speci men Type: BLOOD SPECIMENOrdering Facility: [facility] Address: [address] [place] [address] Performed By: #### 5 7021-8 ####[facility] [id number] [place] [address] [place] Lymphocytes (Bld) [#/Vol] 1.16 10*3/uL Normal 1.00-4.00 [facility] Comment on above: Order Comment: Speci men Type: BLOOD SPECIMENOrdering Facility: [facility] Address: [address] [place] [address] Performed By: #### 5 7021-8 ####[facility] JESSDIANE [id number] [address] STATES OF [facility] Lymphocytes/100 WBC (Bld) 21.6 % Normal [facility] Comment on above: Order Comment: Speci men Type: BLOOD SPECIMENOrdering Facility: [facility] Address: [address] [place] [address] Performed By: #### 5 7021-8 ####[facility] ERNCTOOELE [facility] [id number] [place] [address] [place] MCH (RBC) [Entitic mass] 30.5 pg Normal 26.0-34.0 [facility] Comment on above: Order Comment: Speci men Type: BLOOD SPECIMENOrdering Facility: [facility] Address: [address] [place] [address] Performed By: #### 5 7021-8 ####[facility] ERNCYun [id number] [place] [address] [place] MCHC (RBC) [Mass/Vol] 33.0 g/dL Normal 30.5-36.0 [facility] Comment on above: Order Comment: Speci men Type: BLOOD SPECIMENOrdering Facility: [facility] Address: [address] [place] [address] Performed By: #### 5 7021-8 ####[facility] ERNCLI [id number] [place] [address] [place] MCV (RBC) [Entitic vol] 92.4 fL Normal 80.0-100.0 C [facility] Comment on above: Order Comment: Speci men Type: BLOOD SPECIMENOrdering Facility: [facility] Address: [address] [place] [address] Performed By: #### 5 7021-8 ####[facility] MILLWNCLIA [id number] [place] [address] [place] Monocytes (Bld) [#/Vol] 0.51 10*3/uL Normal <0.87 [facility] Comment on above: Order Comment: Speci men Type: BLOOD SPECIMENOrdering Facility: [facility] Address: [address] [place] [address] Performed By: #### 5 7021-8 ####[facility]AMPUSLIA [id number] [place] [address] [place] Monocytes/100 WBC (Bld) 9.5 % Normal [facility] Comment on above: Order Comment: Speci men Type: BLOOD SPECIMENOrdering Facility: [facility] Address: [address] [place] [address] Performed By: #### 5 7021-8 ####[facility] CAMPUSLIA [id number] [place] [address] [place] Neutrophils (Bld) [#/Vol] 3.54 10*3/uL Normal 1.45-7.50 [facility] Comment on above: Order Comment: Speci men Type: BLOOD SPECIMENOrdering Facility: [facility] Address: [address] [place] [address] Performed By: #### 5 7021-8 ####[facility]AMPUSLIA [id number] [place] [address] [place] Neutrophils/100 WBC (Bld) 65.7 % Normal [facility] Comment on above: Order Comment: Speci men Type: BLOOD SPECIMENOrdering Facility: [facility] Address: [address] [place] [address] Performed By: #### 5 7021-8 ####[facility] ERNCLIA [id number] [place] [address] [place] Nucleated RBC (Bld) [#/Vol] 10*3/uL Normal <0.01 [facility] Comment on above: Order Comment: Speci men Type: BLOOD SPECIMENOrdering Facility: [facility] Address: [address] [place] [address] Performed By: #### 5 7021-8 ####[facility] ROOMA [id number] [place] [address] [place] Nucleated RBC/100 WBC (Bld) [Ratio] 0.0 /100 WBC Normal [facility] Comment on above: Order Comment: Speci men Type: BLOOD SPECIMENOrdering Facility: [facility] Address: [address] [place] [address] Performed By: #### 5 7021-8 ####[facility] [id number] [place] [address] [place] Platelet mean volume (Bld) [Entitic vol] 9.5 fL Normal 9.0-12.7 [facility] Comment on above: Order Comment: Speci men Type: BLOOD SPECIMENOrdering Facility: [facility] Address: [address] [place] [address] Performed By: #### 5 7021-8 ####[facility] [id number] [place] [address] [place] Platelets (Bld) [#/Vol] 209 10*3/uL Normal 150-400 [facility] Comment on above: Order Comment: Speci men Type: BLOOD SPECIMENOrdering Facility: [facility] Address: [address] [place] [address] Performed By: #### 5 7021-8 ####[facility] [id number] [place] [address] [place] RBC (Bld) [#/Vol] 4.33 10*6/uL Normal 4.20-6.00 [facility] Comment on above: Order Comment: Speci men Type: BLOOD SPECIMENOrdering Facility: [facility] Address: [address] [place] [address] Performed By: #### 5 7021-8 ####[facility] JUAN MERCADORamosNCLIA [id number] [place] [address] [place] WBC (Bld) [#/Vol] 5.38 10*3/uL Normal 3.70-11.00 [facility] Comment on above: Order Comment: Speci men Type: BLOOD SPECIMENOrdering Facility: [facility] Address: [address] [place] [address] Performed By: #### 5 7021-8 ####[facility] ERNCLIA [id number] [place] [address] [place] Comprehensive metabolic 2000 panelon 11-04-2024 Albumin [Mass/Vol] 4.5 g/dL Normal 3.9-4.[address] [facility] Comment on above: Order Comment: Speci men Type: BLOOD SPECIMENOrdering Facility: [facility] Address: [address] [place] [address] Performed By: #### L IPNF, 63436-0 ####[facility]ORATORYCLIA [id number] [address] [place] ALP [Catalytic activity/Vol] 56 U/L Normal 38-113 [facility] Comment on above: Order Comment: Speci men Type: BLOOD SPECIMENOrdering Facility: [facility] Address: [address] [place] [address] Performed By: #### L IPNF, 16875-8 ####[facility]ORATORYCLIA [id number] [place] [address] [place] ALT With P-5'-P [Catalytic activity/Vol] 20 U/L Normal 10-54 [facility] Comment on above: Order Comment: Speci men Type: BLOOD SPECIMENOrdering Facility: [facility] Address: [address] [place] [address] Performed By: #### L IPNF, 11588-4 ####[facility]ORATORYCLIA [id number] [place] [address] [place] Anion gap [Moles/Vol] 11 mmol/L Normal 8-15 [facility] Comment on above: Order Comment: Speci men Type: BLOOD SPECIMENOrdering Facility: [facility] Address: [address] [place] [address] Performed By: #### L IPNF, 21950-5 ####[facility]ORATORYCLIA [id number] [place] [address] [place] AST With P-5'-P [Catalytic activity/Vol] 23 U/L Normal 14-40 [facility] Comment on above: Order Comment: Speci men Type: BLOOD SPECIMENOrdering Facility: [facility] Address: [address] [place] [address] Performed By: #### L IPNF, 51033-1 ####[facility]ORATORYCLIA [id number] [place] [address] [place] Bilirubin [Mass/Vol] 0.3 mg/dL Normal 0.2-1.3 [facility] Comment on above: Order Comment: Speci men Type: BLOOD SPECIMENOrdering Facility: [facility] Address: [address] [place] [address] Performed By: #### L IPNF, 34702-4 ####[facility]ORATORYCLIA [id number] [place] [address] [place] Calcium [Mass/Vol] 9.8 mg/dL Normal 8.5-10.[address] [facility] Comment on above: Order Comment: Speci men Type: BLOOD SPECIMENOrdering Facility: [facility] Address: [address] [place] [address] Performed By: #### L IPNF, 93586-5 ####[facility]ORATORYCLIA [id number] [place] [address] [place] Chloride [Moles/Vol] 102 mmol/L Normal 98-107 [facility] Comment on above: Order Comment: Speci men Type: BLOOD SPECIMENOrdering Facility: [facility] Address: [address] [place] [address] Performed By: #### L IPNF, 78323-8 ####June [employer] [facility] LABORATORYCLIA [id number] [place] [address] [place] CO2 [Moles/Vol] 27 mmol/L Normal 22-30 [facility] Comment on above: Order Comment: Speci men Type: BLOOD SPECIMENOrdering Facility: [facility] Address: [address] [place] [address] Performed By: #### L IPNF, 56707-5 ####[facility] LABORATORYCLIA [id number] [address] STATES OF [facility] Creatinine [Mass/Vol] 1.01 mg/dL Normal 0.73-1.22 [facility] Comment on above: Order Comment: Speci men Type: BLOOD SPECIMENOrdering Facility: [facility] Address: [address] [place] [address] Performed By: #### L IPNF, 63567-1 ####[facility] Continuum AnalyticsCLIA [id number] [address] Creatinine and Glomerular filtration rate.predicted panel (S/P/Bld) 73 mL/min/1.73m??? Normal >=60 [facility] Comment on above: Order Comment: Speci men Type: BLOOD SPECIMENOrdering Facility: [facility] Address: [address] [place] [address] Result Comment: Mary Ann mated Glomerular Filtration Rate (eGFR) is calculated using the 2020 CKD-EPI creatinine equation. This equation utilizes serum creatinine, sex, and age as parameters. The creatinine assay has traceable calibration to isotope dilution-mass spectrometry. Refer to KDIGO guidelines for clinical interpretation. In patients with unstable renal function, e.g. those with acute kidney injury, the eGFR may not accurately reflect actual GFR. Performed By: #### L IPNF, 04881-8 ####June [employer] [facility] LABORATORYCLIA [id number] [place] [id number] [place] Glucose [Mass/Vol] 100 mg/dL High 74-[address] [facility] Comment on above: Order Comment: Jeanette shepherd Type: BLOOD SPECIMENOrdering Facility: [facility] Address: [address] [place] [address] Result Comment: The [place] Diabetes Association (ADA) provides guidance for cutoff values for fasting glucose and random glucose. The ADA defines fasting as no caloric intake for at least 8 hours. Fasting plasma glucose results between 100 to 125 mg/dL indicate increased risk for diabetes (prediabetes). Fasting plasma glucose results greater than or equal to 126 mg/dL meet the criteria for diagnosis of diabetes. In the absence of unequivocal hyperglycemia, results should be confirmed by repeat testing. In a patient with classic symptoms of hyperglycemia or hyperglycemic crisis, random plasma glucose results greater than or equal to 200 mg/dL meet the criteria for diagnosis of diabetes. Reference: Standards of Medical Care in Diabetes 2016, [place] Diabetes Association. Diabetes Care. 2016.39(Suppl 1). Performed By: #### L IPJERRELL, 22225-4 ####[facility] LABORATORYCLIA [id number] [place] [address] [place] Potassium [Moles/Vol] 5.0 mmol/L Normal 3.7-5.1 [facility] Comment on above: Order Comment: Jeanette shepherd Type: BLOOD SPECIMENOrdering Facility: [facility] Address: [address] [place] [address] Performed By: #### L IPNF, 71653-4 ####[facility]airELSIE [facility] LABORATORYCLIA [id number] [place] [id number] [place] Protein [Mass/Vol] 7.4 g/dL Normal 6.3-8.[address] [facility] Comment on above: Order Comment: Jeanette shepherd Type: BLOOD SPECIMENOrdering Facility: [facility] Address: [address] [place] [address] Performed By: #### L IPNF, 09972-3 ####[facility]onairRON [facility] LABORATORYCLIA [id number] [place] [id number] [place] Sodium [Moles/Vol] 140 mmol/L Normal 136-[address] [facility] Comment on above: Order Comment: Jeanette men Type: BLOOD SPECIMENOrdering Facility: [facility] Address: [address] [place] [address] Performed By: #### L IPNF, 64549-1 ####[facility]IN [facility] LABORATORYCLIA [id number] [place] [address] [place] Urea nitrogen [Mass/Vol] 13 mg/dL Normal 9-24 [facility] Comment on above: Order Comment: Vianeyi men Type: BLOOD SPECIMENOrdering Facility: [facility] Address: [address] [place] [address] Performed By: #### L IPNF, 63221-1 ####[facility] LABORATORYCLIA [id number] [place] [address] [place] HbA1c (Bld)on 11-04-2024 Average glucose Estimated from glycated hemoglobin (Bld) [Mass/Vol] 137 mg/dL Normal [facility] Comment on above: Order Comment: Vianeyi men Type: BLOOD SPECIMENOrdering Facility: [facility] Address: [address] [place] [address] Result Comment: eAG: (Estimated average glucose) is a calculated value from HgbA1c and is b2b outside sales representative of the average blood glucose level in the last 2-3 month period. Performed By: #### 5 5454-3 ####[facility] LABCLIA [id number] [place] [address] [place] HbA1c (Bld) [Mass fraction] 6.4 % High 4.3-5.6 [facility] Comment on above: Order Comment: Jeanette men Type: BLOOD SPECIMENOrdering Facility: [facility] Address: [address] [place] [address] Result Comment: Amer [place] Diabetes Association guidelines indicate that patients with HgbA1c in the range 5.7-6.4% are at increased risk for development of diabetes, and intervention by lifestyle modification may be beneficial. HgbA1c greater or equal to 6.5% is considered diagnostic of diabetes. Performed By: #### 5 5454-3 ####[facility] LABCLIA [id number] [place] [address] [place] [employer] [place] LIPID PANEL, NONFASTINGon Cholesterol [Mass/Vol] 119 mg/dL Normal <200 [facility] Comment on above: Order Comment: Speci men Type: BLOOD SPECIMENOrdering Facility: [facility] Address: [address] [place] [address] Result Comment: <200 mg/dL, Desirable 200-239 mg/dL, Borderline high >239 mg/dL, High Performed By: #### L IPNF, 64518-7 ####[facility]ORATORYCLIA [id number] [address] STATES OF [facility] HDL CHOLESTEROL, NF 48 mg/dL Normal >39 [facility] Comment on above: Order Comment: Speci men Type: BLOOD SPECIMENOrdering Facility: [facility] Address: [address] [place] [address] Result Comment: 40-5 9 mg/dL, Acceptable >59 mg/dL, High: Negative risk factor for coronary heart disease <40 mg/dL, Low: Positive risk factor for coronary heart disease Performed By: #### L IPNF, 84202-8 ####[facility]ORATORYCLIA [id number] [address] STATES OF [facility] LDL CHOLESTEROL, NF 41 mg/dL Normal <100 [facility] Comment on above: Order Comment: Speci men Type: BLOOD SPECIMENOrdering Facility: [facility] Address: [address] [place] [address] Result Comment: <100 mg/dL, Optimal 100-129 mg/dL, Near optimal/above optimal 130-159 mg/dL, Borderline high 160-189 mg/dL, High >189 mg/dL, Very high Secondary prevention optimal LDL Cholesterol levels are recommended to be < 70 mg/dL Performed By: #### L IPNF, 23152-9 ####[facility]ORATORYCLIA [id number] [address] [place] LDL/HDL RATIO, NF 0.85 mg/dL Normal <2.54 [facility] Comment on above: Order Comment: Speci men Type: BLOOD SPECIMENOrdering Facility: [facility] Address: [address] [place] [address] Result Comment: Emilie seymour: 1. National Cholesterol Education Program ATP III Guideline At-A-Glance Quick Desk Reference: National Heart, Lung, and Blood [place]. National Institutes of Health. 2001: NIH Publication No. 01-3305. 2. An International Atherosclerosis Society position paper: global recommendations for the management of dyslipidemia: executive summary, Atherosclerosis. 2014: 232(2):410-413. Performed By: #### L IPNF, 23347-5 ####[facility]ORATORYCLIA [id number] [place] [address] [place] NON HDL CHOL, NF 71 mg/dL Normal <130 [facility] Comment on above: Order Comment: Vianeymann shepherd Type: BLOOD SPECIMENOrdering Facility: [facility] Address: [address] [place] [address] Result Comment: <130 mg/dL, Optimal 130-159 mg/dL, Near optimal/above optimal 160-189 mg/dL, Borderline high 190-219 mg/dL, High >219 mg/dL, Very high Secondary prevention optimal non HDL Cholesterol levels are recommended to be <100 mg/dL Performed By: #### L IPNF, 08054-0 ####[facility]ORATORYCLIA [id number] [address] STATES OF [facility] T CHOL/HDL RATIO NF 2.48 mg/dL Normal <5.10 [facility] [place] Comment on above: Order Comment: Speci men Type: BLOOD SPECIMENOrdering Facility: [facility] Address: [address] [place] [address] Performed By: #### L IPNF, 43794-3 ####[facility]ORATORYCLIA [id number] [address] STATES [place] 148 mg/dL Normal <150 [facility] Comment on above: Order Comment: Jeanette shepherd Type: BLOOD SPECIMENOrdering Facility: [facility] Address: [address] [place] [address] Result Comment: <150 mg/dL, Normal 150-199 mg/dL, Borderline high 200-499 mg/dL, High >499 mg/dL, Very high Performed By: #### L IPNF, 18896-1 ####[facility] LABORATORYCLIA [id number] [place] [address] [facility] OF [facility] VLDL CHOLESTEROL, NF 30 mg/dL High <30 [facility] Comment on above: Order Comment: Speci men Type: BLOOD SPECIMENOrdering Facility: [facility] Address: [address] [place] [address] Performed By: #### L IPNF, 70524-7 ####[facility]ATORYCLIA [id number] [place] [address] [facility] CNOVon 10-08-2024 CNOV Office Visit (UCTR ) TANISHA SALTER ([id number]) 1940 M Date Time Provider Department 10/08/24 2:15 PM KAMLESH ALVARADO [facility] During your visit today, we recorded the following information about you: Pulse Respiration Blood pressure Weight 76/minute 16/minute 122/62 88.6 kg Kamlesh Alvarado APRN.PUBLIC HEALTH PROGRAM MANAGER 10/08/2024 2:38 PM Signed Subjective HPI HPI Tanisha Salter is a 84 year old male who presents today for CC of rash on penis. This started 2 days ago. Has tried gold varma powder for relief. Symptoms are worsened by northing. Risk factors wears depends for leakage, often sits in urine. 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 Lundberg TONSILLECTOMY HX childhood TRANSURETHRAL ELEC-SURG PROSTATECTOM 06/25/2022 ALLERGIES Demerol [Meperidine], Sulfa (Sulfonamide Antibiotics), and Tetanus Toxoid MEDICATIONS rosuvastatin (CRESTOR) 20 mg tablet take 1 tablet by mouth at bedtime meloxicam (MOBIC) 7.5 mg tablet Take 7.5 mg by mouth once daily. Lancets Test blood sugar(s) 1 to 2 times daily. Dx: Type 2 DM - Controlled E11.9 Insulin: No blood sugar diagnostic (BLOOD GLUCOSE TEST) test strip Test blood sugar(s) 1-2 times daily. Dx: Type 2 DM - Controlled E11.9 Insulin: No aspirin, enteric coated (ADULT LOW DOSE ASPIRIN) 81 mg EC tablet Take 1 tablet by mouth once daily. lisinopril (ZESTRIL) 5 mg tablet Take 1 tablet by mouth once daily. metFORMIN (GLUCOPHAGE) 1,000 mg tablet Take 0.5 tablets by mouth once daily. tamsulosin (FLOMAX) 0.4 mg Take 0.4 mg by mouth once daily. nystatin (MYCOSTATIN) cream Apply 1 application to affected area three times a day for 7 days. albuterol HFA (VENTOLIN HFA) 90 mcg/actuation inhaler Inhale 2 Puffs as instructed every 4 hours as needed for wheezing/shortness of breath. (Patient not taking: Reported on 08/01/2024) finasteride (PROSCAR) 5 mg tablet Take 5 mg by mouth once daily. (Patient not taking: Reported on 09/29/2024) FAMILY HISTORY Problem Relation Age of Onset Alzheimer's Disease Mother Heart Mother Diabetes Father Heart Father Cancer Sister No Known Problems Brother No Known Problems Maternal Grandmother No Known Problems Maternal Grandfather Diabetes Paternal Grandmother No Known Problems Paternal Grandfather Colon Cancer No Family History Social History Tobacco Use Smoking status: Former Current packs/day: 0.00 Average packs/day: 1.5 packs/day for 20.0 years (30.0 ttl pk-yrs) Types: Cigarettes Start date: 07/23/1970 Quit date: 07/23/1990 Years since quittin.2 Smokeless tobacco: Never Vaping Use Vaping status: Never Used Substance Use Topics Alcohol use: Not Currently Comment: rarely Drug use: No Review of Systems Genitourinary: Negative for dysuria and urgency. Objective Blood pressure 122/62, pulse 76, resp. rate 16, weight 88.6 kg (195 lb 5.2 oz), SpO2 97%. Physical Exam Exam conducted with a director of analytical development present. Constitutional: General: He is not in acute distress. Appearance: He is not toxic-appearing or diaphoretic. HENT: Head: Normocephalic and atraumatic. Pulmonary: Effort: Pulmonary effort is normal. No accessory muscle usage or respiratory distress. Genitourinary: Neurological: Mental Status: He is alert and oriented to person, place, and time. SENSITIVE EXAMINATION CONSENT: The sensitive examination was discussed with the Patient or Patient's Authorized Continuous Wave Operator. As applicable, any other physician, advance practice provider, medical student, or other health professional student that will be observing or involved in the sensitive examination for educational or training purposes was discussed with the Patient or Authorized Continuous Wave Operator. The Patient or Authorized Continuous Wave Operator has agreed to proceed with the sensitive examination. (Sensitive examination includes inspection and/or palpation of the breasts, pelvis, prostate and anorectal regions) ASSESSMENT/PLAN: 1. Balanitis - ICD9: 607.1, ICD10: N48.1 -use medication as prescribed -follow (more content not included)... Normal [facility] CNOVon 10-06-2024 CNOV Office Visit (PODIWS ) TANISHA SALTER ([id number]) 1940 M Date Time Provider Department 10/06/24 8:00 AM LUCINDA KOHLER During your visit today, we recorded the following information about you: La Forrester RN 10/06/2024 8:30 AM Signed Patient presents with: Left Foot - Established Patient, Follow Up, Diabetic Foot Check Right Foot - Established Patient, Follow Up, Diabetic Foot Check Patient presents for 9 week follow up diabetic foot/nail care. Also due for a diabetic foot exam. RAFAEL 08/01/24 Lucinda Kohler 10/06/2024 8:30 AM Signed Last saw pcp: 08/25/24 Subjective: Patient presents to clinic c/o painful toenails. They state that the nails are especially painful with shoe gear and pressure. Patient states that nails b/l hallux are painful. Patient admits to being diabetic. No other pedal complaints at this time. Patient states no change in medications or medical history since last visit. Objective: Patient presents to clinic ambulating in [facility] Vasc: DP and PT pulses are faintly [...] blood sugar under control to prevent complications. Stressed the importance of avoiding barefoot walking, wearing good shoes and inspection of feet. Patient is to RTC in 3-4 months. TODD Pan Matthew 10/06/2024 8:10 AM Signed Diabetes Foot Care Instructions When you have [...] (or decreased sensation in your feet) a energy director should always cut your toenails. Be Careful [...] will protect your feet from various weather con (more content not included)... Normal [facility] CNOVon 09-29-2024 CNOV Office Visit (WSTR ) TANISHA SALTER ([id number]) 1940 M Date Time Provider Department 09/29/24 8:15 AM MONET PROCTOR [facility] During your visit today, we recorded the following information about you: Temperature Pulse Respiration Blood pressure 98 degrees 84/minute 21/minute 110/64 Weight 88.5 kg Monet Proctor APRN.PUBLIC HEALTH PROGRAM MANAGER 09/29/2024 8:58 AM Signed Subjective Cough Associated symptoms include sore throat. Pertinent negatives include no chest pain, no chills, no ear pain, no headaches, no myalgias and no shortness of breath. Tanisha Salter is a 84 year old male who presents with one week of nasal congestion and cough and sore throat. He has not had a fever. He took one dose of Delsym yesterday which did not help. He denies chest pain or shortness of breath. Review of Systems Constitutional: Negative for chills, fever and malaise/fatigue. HENT: Positive for congestion and sore throat. Negative for ear pain. Respiratory: Positive for cough and sputum production. Negative for shortness of breath. Cardiovascular: Negative for chest pain. Gastrointestinal: Negative for diarrhea, nausea and vomiting. Musculoskeletal: Negative for myalgias. Neurological: Negative for headaches. BP 110/64 Pulse 84 Temp 36.7 ?C (98 ?F) Resp 21 Wt 88.5 kg (195 lb 1.7 oz) SpO2 96% BMI 26.46 kg/m? 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 Lundberg [place]. s/p radiation Spinal stenosis lumbar Testicular cancer (HCC) radiation- PAST SURGICAL HISTORY Procedure Laterality Date COLONOSCOPY 2011 normal CYSTOSCOPY 08/2023 HEMORRHOIDECTOMY 1960s ORCHIECTOMY SIMPLE Left 1983 testicular cancer, with radiation PAST SURGICAL HISTORY OF Left knee arthroscopy PAST SURGICAL HISTORY OF 10/2023 Bladder Surgery PAST SURGICAL HISTORY OF 10/09/2023 Revised surgery on bladder neck Dr. Lundberg TONSILLECTOMY HX childhood TRANSURETHRAL ELEC-SURG PROSTATECTOM 06/25/2022 ALLERGIES Demerol [Meperidine], Sulfa (Sulfonamide Antibiotics), and Tetanus Toxoid MEDICATIONS rosuvastatin (CRESTOR) 20 mg tablet take 1 tablet by mouth at bedtime meloxicam (MOBIC) 7.5 mg tablet Take 7.5 mg by mouth once daily. Lancets Test blood sugar(s) 1 to 2 times daily. Dx: Type 2 DM - Controlled E11.9 Insulin: No blood sugar diagnostic (BLOOD GLUCOSE TEST) test strip Test blood sugar(s) 1-2 times daily. Dx: Type 2 DM - Controlled E11.9 Insulin: No aspirin, enteric coated (ADULT LOW DOSE ASPIRIN) 81 mg EC tablet Take 1 tablet by mouth once daily. lisinopril (ZESTRIL) 5 mg tablet Take 1 tablet by mouth once daily. metFORMIN (GLUCOPHAGE) 1,000 mg tablet Take 0.5 tablets by mouth once daily. tamsulosin (FLOMAX) 0.4 mg Take 0.4 mg by mouth once daily. amoxicillin-clavulana te potassium (AUGMENTIN) 875-125 mg per tablet Take 1 tablet by mouth two times a day for 7 days. predniSONE (DELTASONE) 20 mg tablet Take 2 tablets by mouth once daily for 4 days. albuterol HFA (VENTOLIN HFA) 90 mcg/actuation inhaler Inhale 2 Puffs as instructed every 4 hours as needed for wheezing/shortness of breath. (Patient not taking: Reported on 08/01/2024) finasteride (PROSCAR) 5 mg tablet Take 5 mg by mouth once daily. (Patient not taking: Reported on 09/29/2024) FAMILY HISTORY Problem Relation Age of Onset Alzheimer's Disease Mother Heart Mother Diabetes Father Heart Father Cancer Sister No Known Problems Brother No Known Problems Maternal Grandmother No Known Problems Maternal Grandfather Diabetes Paternal Grandmother No Known Problems Paternal Grandfather Colon Cancer No Family History Social History Tobacco Use Smoking status: Former Current packs/day: 0.00 Average packs/day: 1.5 packs/day for 20.0 years (30.0 ttl pk-yrs) Types: Cigarettes Start date: 07/23/1970 Quit date: 07/23/1990 Years since quittin.2 Smokeless tobacco: Never Vaping Use Vaping status: Never Used Substance Use Topics Alcohol use: Not Currently Comment: rarely Drug use: No Objective Physical Exam Vitals and nursing note reviewed. Constitutional: General: He is not in acute distress. Appearance: Normal appearance. He is not ill-appearing. HENT: Right Ear: Tympanic membrane, ear canal and external ear normal. Left Ear: Tympanic membrane, ear canal and external ear normal. Nose: Mucosal edema, congestion and rhinorrhea present. Mouth/Throat: Mouth: Mucous membranes are moist. Pharynx: Oropharynx is clear. Uvula midline. No oropharyngeal exudate or posterior oropharyngeal erythema. Cardiovascular: Rate and Rhythm: Nor (more content not included)... Normal [facility] TAN[facility]HA SALTER ([id number]) 1940 M Date Time Provider Department 09/08/24 YOLANDE WARNER During your visit today, we recorded the following information about you: BabLa lujan RN 09/08/2024 10:12 AM Signed Tory with [facility] called and asked to have Pts most recent A1C faxed over to fax# [phone]. Lab faxed and given verbally. Allergies As of Date: 09/08/2024 Noted Allergy Reaction DEMEROL (MEPERIDINE) 12/26/2017 11 - Vomiting SULFA (SULFONAMIDE ANTIBIOTICS) 12/26/2017 16 - Unknown Comments: Elevated temperature TETANUS TOXOID 12/26/2017 4 - Hives Date Reviewed: 08/25/2024 Reviewed by: Ade Moreau MA - Fully Assessed Reason for Visit: Fax Pts A1C [Other] Prescriptions as of 09/08/2024 - rosuvastatin (CRESTOR) 20 mg tablet take 1 tablet by mouth at bedtime - meloxicam (MOBIC) 7.5 mg tablet Take 7.5 mg by mouth once daily. - albuterol HFA (VENTOLIN HFA) 90 mcg/actuation inhaler Inhale 2 Puffs as instructed every 4 hours as needed for wheezing/shortness of breath. - Lancets Test blood sugar(s) 1 to 2 times daily. Dx: Type 2 DM - Controlled E11.9 Insulin: No - blood sugar diagnostic (BLOOD GLUCOSE TEST) test strip Test blood sugar(s) 1-2 times daily. Dx: Type 2 DM - Controlled E11.9 Insulin: No - aspirin, enteric coated (ADULT LOW DOSE ASPIRIN) 81 mg EC tablet Take 1 tablet by mouth once daily. - lisinopril (ZESTRIL) 5 mg tablet Take 1 tablet by mouth once daily. - metFORMIN (GLUCOPHAGE) 1,000 mg tablet Take 0.5 tablets by mouth once daily. - tamsulosin (FLOMAX) 0.4 mg Take 0.4 mg by mouth once daily. - finasteride (PROSCAR) 5 mg tablet Take 5 mg by mouth once daily. Problem List As Of Date 09/08/2024 Noted Resolved Diabetes mellitus, type 2 (HCC) [E11.9] Hyperlipidemia [E78.5] BPH (benign prostatic hyperplasia) [N40.0] Testicular cancer (HCC) [C62.90] 08/17/2018 Diabetic polyneuropathy associated with type 2 *08/17/2018 Neck stiffness [M43.6] 10/10/2019 Chronic low back pain without sciatica [M54.50,*10/21/2021 Acute back pain with sciatica, right [M54.41] 10/22/2021 06/04/2022 Prostate cancer (HCC) [C61] 04/23/2022 Spinal stenosis, lumbar region, without neuroge*04/01/2023 Lumbar radiculopathy [M54.16] 04/01/2023 Elevated prostate specific antigen (PSA) [R97.2*05/08/2023 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 Perfecto Warner MD Status: DEP AMB Study: L/S Spine Min 4 Views Date of Exam: 09/08/24 Exam# [id number] Ordering Dr: Anushka Neri [place] [id number] HISTORY: pain -- please do upright AP, LAT, flex/ext. TECHNIQUE: XR Spine Lumbar Min 4 Views. COMPARISON: None. FINDINGS: VERTEBRAE: Vertebral body heights preserved. Degenerative changes of the posterior elements. ALIGNMENT: Mild 3 mm anterolisthesis of L2-3 in neutral position and with flexion-extension maneuver. Mild thoracic scoliosis. INTERVERTEBRAL DISCS: Moderate intervertebral disc space narrowing with endplate change at L2-3 and L3-4. Mild intervertebral disc space narrowing with endplate change at L4-5 and L5-S1. SOFT TISSUES: Prostate radiotherapy seeds noted in the lower pelvis. RAD/L/S Spine Min 4 Views IMPRESSION: No acute fracture or dislocation identified in the lumbar spine. Mild anterolisthesis of L2-3. Mild scoliosis. Multilevel degenerative change. Electronically Signed: Katelyn Rodriguez MD at 13:43 EST , CC: SHARON Nguyễn; Dr. Perfecto Warner MD Driver'S License Reviewing Officer: Signed Normal [facility] Orthopedic Visit Reporton Orthopedic Visit Report [facility] [address] [place] [address] [address] [place] [address] OFFICE VISIT Date of Service: 09/08/24 MR#: [id number] Acct: [id number] Name: TANISHA SALTER Rep #: [id number] : 1940 Provider: Dr. Dandy Dallas MD Age/Sex: 84/M Location: [facility] [place] Status: Signed Intake Vital Signs 07/18/24 08:56 09/08/24 09:04 Height 6 ft 6 ft Weight: 186 lb 6 oz 197 lb BMI 25.2 26.7 BP 107/65 Blood Pressure Location Rt brachial Position Sitting Respiration 16 Pulse 76 Pulse Source Monitor Temp 97.9 F Pulse Oximetry (%) 99 Oxygen Delivery Method room air Intake Visit Reasons: LUMBAR SPINE Accompanied by: Daughter Allergies Sulfa (Sulfonamide Antibiotics) Allergy (Verified 09/08/24 09:06) Fever and skin rash Tetanus Vaccines and Toxoid Allergy (Verified 09/08/24 09:06) Rash meperidine (From Demerol) Adverse Reaction (Verified 09/08/24 09:06) Vomiting Medications ???Medication ???Instructions ???Recorded ???Confirmed ???Type metformin 500 mg tablet,extended 500 mg PO DAILY 09/07/18 09/08/24 History release 24 hr Tamsulosin Hcl 0.4 mg PO DAILY 07/13/23 09/08/24 History lisinopril 5 mg tablet 5 mg PO DAILY 01/11/24 09/08/24 History aspirin 81 mg chewable tablet 81 mg PO QDAY 07/18/24 09/08/24 History meloxicam 7.5 mg tablet 7.5 mg PO QDAY 07/18/24 09/08/24 History rosuvastatin 20 mg tablet 20 mg PO QDAY 07/18/24 09/08/24 History Have you fallen in the past year?: No PFSH Medical History Indwelling urethral catheter present Constipation Wears dentures Cancer Diabetes Arthritis High cholesterol Back pain Testicular cancer Surgical History S/P TURP (status post transurethral resection of prostate) Hx of cystoscopy Hx of knee surgery History of removal of testicle Family History Father Heart disease Diabetes Mother Myocardial infarction Alzheimer disease Grandmother Cancer Sister Breast cancer Social History Smoking Status: Former smoker pack-years: 30 Tobacco: How many years used: 30 alcohol intake: current alcohol intake frequency: holidays/special occasions only substance use type: does not use diet: diabetic HPI LUMBAR SPINE Details: This documentation accurately reflects the service provided and the decisions made by me, Dr. Dandy Dallas MD 09/08/24 0903. Part of today???s visit was documented by Keerthi MEDINA, acting as scribe. TANISHA SALTER is a 84 year old M here today NEW patient for low back pain referred by Dr. Abraham. He has had pain for a few years but over time it has gotten worse. His pain is across the low back but the right side is worse. At times he does get radiating pain down the right leg. Denies numbness, tingling or other associated symptoms. He first started seeing Dr. Lam for pain management and had 1 epidural and 3 medial branch blocks with no relief and then started seeing Dr. Abraham and he did 2 epidural injections. He states that when he goes for the injections the anesthesia helps take away the pain but by the time it wears off he has pain again. His last injection was 07/12/24. He has done water therapy for the pain but states that it didn't help. Dr. Abraham did prescribe him Meloxicam which he states doesn't help him and if it does it is very minimal. Patient does not remember if he has had an MRI at an outside institution of his lumbar spine. Patient and family member were able to find a report of a CT lumbar spine from January 2023 from [facility] but no MRIs done recently. Patient's last A1C was done on 05/09/2024 and it was 6.3. Ortho Exam General General: Yes no acute distress Neurologic: Yes alert and Yes oriented x3 Spine SPINE TESTING CERVICAL THORACIC LUMBAR Musculoskeletal Strength 0=absent - 5=normal Details: Exam to the back shows right paraspinal tenderness in mid lumbar spine. Neurologic motion of upper and lower extremity shows 5 x 5 power normal shows normal sensations in all dermatomes. Dilia's negative. There is no hyperreflexia in lower extremities. Romberg's and gait balance could not be tested because of reliance on cane. Coding Level of Care Code Off vis,new,level 4 Diagnoses Lumbar radiculopathy M54.16 Other secondary scoliosis, lumbar region M41.56 Scoliosis type: other secondary scoliosis Balance problem R26.89 Time Spent (min) 45 Assessment and Plan Assessment and Plan (1) Lumbar radiculopathy: Status: Acute (2) Lumbar scoliosis: Status: Acute Qualifiers: Scoliosis type: other secondary scoliosis Qualified Code(s): M41.56 - Other secondary (more content not included)... Normal [facility] [id number] 09-02-2024 [id number] HNO ID: [id number] Author: FELY MEDRANO OTR/L Service: ? Author Type: Occupational Therapist Type: [id number] Filed: 09/02/2024 14:29 Note Text: [facility] Occupational Therapy Plan of Care Certification Patient Name: Tanisha Salter : 1940 [facility] #: [id number] Date: 09/02/2024 To: Yolande Warner,* From Therapist: GAEL Carrington RE: Patient Certification/ Recertification Your review, approval and electronic signature are required in order to comply with Payor: MEDICARE / Plan: MEDICARE A AND B / Product Type: Medicare / regulations. 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 The patient presents with impairments in coordination, joint mobility, overall function, sensation, and strength. Patient did not complete the PROMIS? (Patient Reported Outcome Measures Information System). Prognosis for therapy is Good due to: current objective clinical presentation . The patient will benefit from skilled therapy services to meet the goals established for this plan of care as noted below. Goals for Episode of Care: established 09/02/24 Patient will report a good understanding of diagnosis and OT recommendations for progression of program. Patient will increase AROM of Left thumb to WFL opposition (to LF) in order to be able to improve function for basic self-care tasks. 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 Patient will increase Left pinch by 20% so that patient will be able to improve function for light functional tasks. Patient Goals: Resume normal function of hand / reduce pain Time Frame for Goals and Treatment : 10/14/24 Planned Interventions, Frequency, and Duration: Current Frequency: 1x every other week Duration: 6 weeks Total Number of Visits Planned: 3 Planned Treatment Interventions: Therapeutic exercise (94491), Therapeutic activities (64250), Manual therapy (60304), Self-fdc management (02647) PLAN FOR NEXT VISIT:CMC stabilization / strengthening as tolerated; pincer pinch as tolerated Patient demonstrates good understanding of plan of care and treatment. The above goals and plan of care were discussed and agreed upon by patient/family. For further details regarding this patient refer to the Occupational Therapy electronically documented visit dated 09/02/2024. Provider Attestation I have reviewed the treatment plan for Tanisha Salter, [facility]# [id number] for the period of 09/02/24 -- 12/01/24, established on 09/02/2024. Signature certifies the need for therapy services. Normal [facility] CNTHERAPYon 09-02-2024 CNTHERAPY OT/PT/Speech Visit (LTOT) TANISHA SALTER ([id number]) 1940 M Date Time Provider Department 09/02/24 1:30 PM FELY MEDRANO Date Time Provider Department [place] 09/02/2024 1:30 PM [id number] , [facility] Reason for Visit: OT EVAL [748] OT Discharge [750] Primary Visit Diagnosis: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 [R29.898] Other Visit Diagnosis:Arthritis of both hands [M19.041, M19.042] Allergies As of Date: 09/02/2024 Noted Allergy Reaction DEMEROL (MEPERIDINE) 12/26/2017 11 - Vomiting SULFA (SULFONAMIDE ANTIBIOTICS) 12/26/2017 16 - Unknown Comments: Elevated temperature TETANUS TOXOID 12/26/2017 4 - Hives Date Reviewed: 08/25/2024 Reviewed by: Ade Moreau MA - Fully Assessed Prescriptions as of 11/15/2024 - lisinopril (ZESTRIL) 5 mg tablet Take 1 tablet by mouth once daily. - metFORMIN (GLUCOPHAGE) 1,000 mg tablet Take 0.5 tablets by mouth once daily. - rosuvastatin (CRESTOR) 20 mg tablet take 1 tablet by mouth at bedtime - meloxicam (MOBIC) 7.5 mg tablet Take 7.5 mg by mouth once daily. - Lancets Test blood sugar(s) 1 to 2 times daily. Dx: Type 2 DM - Controlled E11.9 Insulin: No - blood sugar diagnostic (BLOOD GLUCOSE TEST) test strip Test blood sugar(s) 1-2 times daily. Dx: Type 2 DM - Controlled E11.9 Insulin: No - aspirin, enteric coated (ADULT LOW DOSE ASPIRIN) 81 mg EC tablet Take 1 tablet by mouth once daily. - tamsulosin (FLOMAX) 0.4 mg Take 0.4 mg by mouth once daily. It Risk Analyst: Addendum Therapy (PT/OT/Speech/Resp) ID: [id number] 09/02/2024 2:07 PM Author: FELY MEDRANO Signed by FELY MEDRANO/Hima on 09/02/2024 at 2:08 PM * * * This document replaces document [id number] * * * Document text: Program_ID:[id number] Access Code: [email or web address] URL: https://Consumer Agent Portal (CAP)/ Date: 09-02-2024 Prepared By: Fely Medrano Program Notes Exercises - Wrist Tendon Gliding - 2 x daily - 7 x weekly - 1 sets - 10 reps ----- Letter Text [facility] THERAPY NTon 09-02-2024 THERAPY NT HNO ID: [id number] Author: FELY MEDRANO OTR/L Service: Occupational Therapy Author Type: Occupational Therapist Type: Therapy (PT/OT/Speech/Resp) Filed: 09/02/2024 14:08 Note Text: Program_ID:[id number] Access Code: [email or web address] URL: https://Consumer Agent Portal (CAP)/ Date: 09-02-2024 Prepared By: Fely Medrano Program Notes Exercises - Wrist Tendon Gliding - 2 x daily - 7 x weekly - 1 sets - 10 reps [facility] CNOVon 08-25-2024 CNOV Office Visit (UCWSTR ) TANISHA SALTER ([id number]) 1940 M Date Time Provider Department 08/25/24 8:15 AM JESSE AVERY [facility] During your visit today, we recorded the following information about you: Temperature Pulse Respiration Blood pressure 97 degrees 79/minute 18/minute 119/67 Weight 89 kg Jesse Avery MD 08/25/2024 9:16 AM Signed Patient presents with: Cough: Chest congestion x2 weeks, R eye conjunctivitis x2 days HPI: Feeling sick with URI the last week. Right eye irritation started 2 days ago. He had a cough a few weeks ago that improved before returning. Positive symptoms: cough, Nasal Congestion, Rhinorrhea, right eye pruritus/redness/drai nage/AM crust, Negative symptoms: Shortness of breath, Wheezing, Chest pain, Fever, vision change, eye pain, OTC: delsym MEDICATIONS: Current Outpatient Medications Medication Sig rosuvastatin (CRESTOR) 20 mg tablet take 1 tablet by mouth at bedtime meloxicam (MOBIC) 7.5 mg tablet Take 7.5 mg by mouth once daily. Lancets Test blood sugar(s) 1 to 2 times daily. Dx: Type 2 DM - Controlled E11.9 Insulin: No blood sugar diagnostic (BLOOD GLUCOSE TEST) test strip Test blood sugar(s) 1-2 times daily. Dx: Type 2 DM - Controlled E11.9 Insulin: No aspirin, enteric coated (ADULT LOW DOSE ASPIRIN) 81 mg EC tablet Take 1 tablet by mouth once daily. lisinopril (ZESTRIL) 5 mg tablet Take 1 tablet by mouth once daily. metFORMIN (GLUCOPHAGE) 1,000 mg tablet Take 0.5 tablets by mouth once daily. tamsulosin (FLOMAX) 0.4 mg Take 0.4 mg by mouth once daily. finasteride (PROSCAR) 5 mg tablet Take 5 mg by mouth once daily. albuterol HFA (VENTOLIN HFA) 90 mcg/actuation inhaler Inhale 2 Puffs as instructed every 4 hours as needed for wheezing/shortness of breath. (Patient not taking: Reported on 08/01/2024) No current facility-administered medications for this visit. ALLERGIES: ALLERGIES Allergen Reactions Demerol [Meperidine] Vomiting Sulfa (Sulfonamide * Unknown Elevated temperature Tetanus Toxoid Hives VITALS: BP 119/67 Pulse 79 Temp 36.1 ?C (97 ?F) Resp 18 Wt 89 kg (196 lb 3.4 oz) SpO2 97% BMI 26.61 kg/m? PHYSICAL EXAM: GEN: mildly ill appearing. Accompanied by his daughter HEENT: PERRL, EOMI, left conjunctiva clear, moderate right conjunctival injection, fine mucoid crust on right eyelashes Ears: canals clear. TMs without erythema, bulge, or effusion Sinuses: non-tender frontal sinus, non-tender maxillary sinuses Throat: moist mucous membranes, no erythema, no exudate Neck: supple, no thyromegaly, no lymphadenopathy HEART: regular rate, regular rhythm, no murmurs LUNGS: clear to auscultation, no wheezes or crackles, no increased WOB ASSESSMENT/PLAN: 1. Acute conjunctivitis of right eye, unspecified acute conjunctivitis type - ICD9: 372.00, ICD10: H10.31 Suspect viral URI last week producing cough and conjunctivitis. [place] eye discussed. Infectious conjunctivitis is most commonly caused by cold viruses and is a self-limited condition which usually resolves in about a week. Bacterial conjunctivitis usually follows a similar course, but symptoms and contagiousness are responsive to antibiotics. Bacterial infection can rarely progress to more serious infection. Hand hygiene with washing or java sql developer is important to reduce spread of the infection. Seek re-evaluation for high fever, increasing periocular redness/swelling, eye pain, or vision change as these can be symptoms of serious infection. - OFLOXACIN 0.3 % EYE DROPS for possible superimposed bacterial conjunctivitis Jesse Avery MD Allergies As of Date: 08/25/2024 Noted Allergy Reaction DEMEROL (MEPERIDINE) 12/26/2017 11 - Vomiting SULFA (SULFONAMIDE ANTIBIOTICS) 12/26/2017 16 - Unknown Comments: Elevated temperature TETANUS TOXOID 12/26/2017 4 - Hives Date Reviewed: 08/25/2024 Reviewed by: Ade Moreau MA - Fully Assessed Reason for Visit: Cough [28] Cmt: Chest congestion x2 weeks, R eye conjunctivitis x2 days Primary Visit Diagnosis:Acute conjunctivitis of right eye, unspecified acute conjunctivitis type [H10.31] Order(s):ofloxacin (OCUFLOX) 0.3 % ophthalmic solutionUse 2 Drops in the right eye every 4 hours for 7 days.Disp: 10 mLRfl: 0 Prescriptions as of 08/25/2024 - ofloxacin (OCUFLOX) 0.3 % ophthalmic solution Use 2 Drops in the right eye every 4 hours for 7 days. - rosuvastatin (CRESTOR) 20 mg tablet take 1 tablet by mouth at bedtime - meloxicam (MOBIC) 7.5 mg tablet Take 7.5 mg by mouth once daily. - albuterol HFA (VENTOLIN HFA) 90 mcg/actuation inhaler Inhale 2 Puffs as instructed every 4 hours as needed for wheezing/shortness of breath. - Lancets Test blood sugar(s) 1 to 2 times daily. Dx: Type 2 DM - Controlled E11.9 Insulin: No - blood sugar diagnostic (BLOOD GLUCOSE TEST) test strip Test blood sugar(s) (more content not included)... Normal [facility] CNOVon 08-01-2024 CNOV Office Visit (PODIWS ) TANISHA SALTER ([id number]) 1940 M Date Time Provider Department 08/01/24 8:15 AM LUCINDA KOHLER PODIWS During your visit today, we recorded the following information about you: La Forrester RN 08/01/2024 8:35 AM Signed Patient presents with: Left Foot - Established Patient, Follow Up, Diabetic Foot Care Right Foot - Established Patient, Follow Up, Diabetic Foot Care Patient presents for follow up diabetic foot/nail care. RAFAEL 05/26/24 Lucinda Kohler 08/01/2024 8:20 AM Signed Diabetes Foot Care Instructions When you have [...] (or decreased sensation in your feet) a energy director should always cut your toenails. Be Careful [...] Go to your health care provider or energy director to treat these conditions. Lucinda Kohler 08/01/2024 8:35 AM Signed Last saw pcp: 07/08/24 Subjective: Patient presents to clinic c/o painful toenails. They state that the nails are especially painful with shoe gear and pressure. Patient states that nails b/l hallux are painful. Patient admits to being diabetic. No other pedal complaints at this time. Patient states no change in medications or medical history since last visit. Objective: Patient presents to clinic ambulating in [facility] Vasc: DP and PT pulse (more content not included)... Normal [facility] CNOVon 07-26-2024 CNOV Office Visit (GSTNOR ) TANISHA SALTER ([id number]) 1940 M Date Time Provider Department 07/26/24 9:40 AM KAMLA CROWDER During your visit today, we recorded the following information about you: Pulse Blood pressure Weight Height 66/minute 110/60 83.9 kg 1.829 m Kamla Crowder PA-C 07/26/2024 9:54 AM Signed CHIEF COMPLAINT: Patient presents with: Constipation: Some fecal incontinence with gas. Fecal urgency when he is not constipated. This consult was requested by No ref. provider found for an opinion regarding constipation, fecal urgency. My final recommendations will be communicated to the requesting health care provider by way of the shared medical record for internal providers or letter via the [employer] for external providers. HPI: Tanisha Salter is a 84 year old male who presents for Constipation (Some fecal incontinence with gas. Fecal urgency when he is not constipated. ). PMHx of BPH, T2DM, HLD, prostate cancer, spinal stenosis, testicular cancer Daughter is present today. Patient tells me that he is dealing with alternating bowel habits. Will have constipation where he isn't going a few days or have fecal urgency with incontinence. Discussed his diet today. Eating relatively healthy with more fiber in the diet. Notes that he has to strain. Doesn't feel like he is fully emptying. Denies abdominal pain, bloating. No rectal bleeding. Denies nausea, vomiting. Appetite is good. Weight is stable. No smoking. Rare alcohol use. Lasts colonoscopy was in his 60's. Does not want one. Latest Ref Rng 07/08/2024 CCP Antibody IgG Qualitative Negative Negative CCP Antibody, IgG <20 Units <15 Uric Acid 4.0 - 8.1 mg/dL 5.7 Rheumatoid Factor <16 IU/mL 13 CURTIS Scr Qual Negative Negative WSR 0 - 15 mm/hr 20 (H) CRP <0.9 mg/dL <0.3 Legend: (H) High Record Review: [facility] / Outside records reviewed. 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 s/p radiation Spinal stenosis lumbar Testicular cancer (HCC) radiation- PAST SURGICAL HISTORY Procedure Laterality Date COLONOSCOPY 2011 normal CYSTOSCOPY 08/2023 HEMORRHOIDECTOMY 1960s ORCHIECTOMY SIMPLE Left 1983 testicular cancer, with radiation PAST SURGICAL HISTORY OF Left knee arthroscopy PAST SURGICAL HISTORY OF 10/2023 Bladder Surgery PAST SURGICAL HISTORY OF 10/09/2023 Revised surgery on bladder neck Dr. Lundberg TONSILLECTOMY HX childhood TRANSURETHRAL ELEC-SURG PROSTATECTOM 06/25/2022 Allergies: ALLERGIES Allergen Reactions Demerol [Meperidine] Vomiting Sulfa (Sulfonamide * Unknown Elevated temperature Tetanus Toxoid Hives Medications: rosuvastatin (CRESTOR) 20 mg tablet take 1 tablet by mouth at bedtime albuterol HFA (VENTOLIN HFA) 90 mcg/actuation inhaler Inhale 2 Puffs as instructed every 4 hours as needed for wheezing/shortness of breath. Lancets Test blood sugar(s) 1 to 2 times daily. Dx: Type 2 DM - Controlled E11.9 Insulin: No blood sugar diagnostic (BLOOD GLUCOSE TEST) test strip Test blood sugar(s) 1-2 times daily. Dx: Type 2 DM - Controlled E11.9 Insulin: No aspirin, enteric coated (ADULT LOW DOSE ASPIRIN) 81 mg EC tablet Take 1 tablet by mouth once daily. lisinopril (ZESTRIL) 5 mg tablet Take 1 tablet by mouth once daily. metFORMIN (GLUCOPHAGE) 1,000 mg tablet Take 0.5 tablets by mouth once daily. tamsulosin (FLOMAX) 0.4 mg Take 0.4 mg by mouth once daily. finasteride (PROSCAR) 5 mg tablet Take 5 mg by mouth once daily. meloxicam (MOBIC) 7.5 mg tablet Take 7.5 mg by mouth once daily. FAMILY HISTORY Problem Relation Age of Onset Alzheimer's Disease Mother Heart Mother Diabetes Father Heart Father Cancer Sister No Known Problems Brother No Known Problems Maternal Grandmother No Known Problems Maternal Grandfather Diabetes Paternal Grandmother No Known Problems Paternal Grandfather Colon Cancer No Family History Employer And Job Title: No employer specified (Retired) Years Of Education Completed: Not specified Marital Status: Social History Tobacco Use Smoking status: Former Current packs/day: 0.00 Average packs/day: 1.5 packs/day for 20.0 years (30.0 ttl pk-yrs) Types: Cigarettes Start date: 07/23/1970 Quit date: 07/23/1990 Years since quittin.0 Smokeless tobacco: Never Vaping Use Vaping status: Never Used Substance Use Topics Alcohol use: Not Currently Comment: rarely Drug use: No Review of Systems: Review of Systems Gastrointestinal: Positive for constipation and diarrhea. Change in bowel habits, Gas All (more content not included)... Normal [facility] PT D/C Summary (1)on [facility] PT D/C Summary (1) [facility] Physical Therapy [address] [place] [address] / REHABILITATION SERVICES DISCHARGE SUMMARY MR#: [id number] Acct: [id number] Name: TANISHA SALTER Rep #: [id number] : 1940 84 From: Erna Flower PT, Cert. MDT Referring Dr.: Dr. Deven Abraham MD Status: REG RCR Insurance: MEDICARE PART A B [employer] Discharge Summary D/C summary: It has been my pleasure to treat TANISHA SALTER referred by Dr. Deven Abraham MD, with the diagnosis of BACK PAIN AND BALANCE for a total of 8 visit(s). Discharge Date: 07/25/24 Please see the following information for a summary of their discharge status. Subjective Subjective: PATIENT STATES IN THE WATER IT FELT GREAT BUT WHEN I GET OUT AND GET BACK TO MY NORMAL ROUTINE OF WALKER THE PAIN COMES BACK. PATIENT REPORTS HE CAN DO THE EX'S IN THE WATER NO PROBLEM. I LIKED IT. I ENJOYED IT. IT FELT GOOD. EVEN WHEN I CAME OUT I FELT PRETTY GOOD FOR AWHILE. 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 PATIENT REPORTS THE Meloxicam and Shots haven't helped. PATIENT STATES DR. ABRAHAM TOLD HIM HE MIGHT NEED AN OPERATION BUT PATIENT REPORTS HE DOES NOT WANT IT AT HIS AGE. Pain Back: Pain Intensity (Out of 10): 6 Overall Improvement % Improvement: 0 Objective Objective/Function: PATIENT WAS SEEN TODAY FOR RE-ASSESSMENT OF PROGRESS TOWARD THE SET PT GOALS AND THE NEED FOR FURTHER PHYSICAL THERAPY VS READINESS FOR DISCHARGE. THIS PATIENT RESPONDED WELL TO AQUATIC THERAPY BUT HE REPORTS THE PAIN RELIEF IS TEMPORARY. TESTING SHOWS SOME IMPROVEMENT IN GAIT AND BALANCE UPON EXAM TODAY: THIS PATIENT AMBULATES INDEP'LY INTO PT TODAY WITH QUAD CANE. HE REPORTS HE HAS HAD THE CANE SINCE BEFORE STARTING PT AND HE USES IT INTERMITTENTLY TO TAKE PRESSURE OFF HIS BACK. Lumbar mvmt loss: flex - MOD ext - BABAR R SG - MOD L SG - MOD TUG TEST: 9.30 SEC WITHOUT AD. 30 STS TEST WITH CATHERINE UE ASSIST = 12. SLS X 12 SEC L LE, 15 SEC R LE. TANDEM STANCE. PATIENT IS ABLE TO TANDEM STANCE BUT STILL UNABLE TO TANDEM WALK. Goals Goal 1:: DECREASE C/O BACK AND LE SX'S BY AT LEAST 50% TO EASE ADL'S. Goal Progress: Not Met Goal 2:: PATIENT WILL BE ABLE TO COMPLETE 12 STS IN 30 SEC WITHOUT UE ASSIST TO DEMONSTATE INCREASED LE STRENGTH Goal Progress: Goal Met Goal 3:: PATIENT WILL BE INDEP WITH A WATER EX PROGRAM Goal Progress: Goal Met Plan Plan: D/C TO INDEP WATER AND HOME EX'S. D/C Information d/c sentence: If there are questions or concerns regarding this patient's physical therapy, please feel free to call me at [phone]. Thank you for the referral of this patient. Sincerely, Erna Flower, PT, Cert MDT Balance/Gait/Function al tests Balance/Special Test Scores Oswestry Low Back Score: 14 Improvement % Improvement: 0 07/25/24 1046 CC: Dr. Deven Abraham MD; Dr. Perfecto Warner MD EILEEN Signed Normal [facility] Radiation Oncology Visiton 1 09-17-2023 Radiation Oncology Visit [facility] [place] [address] OFFICE VISIT Date of Service: 07/18/24854 MR#: [id number] Acct: [id number] Name: TANISHA SALTER Rep #: [id number] : 1940 From: Jose You DO Age/Sex: 84/M Location[place] [facility] [place] Status: Signed Intake Vital Signs 01/11/24 10:34 07/18/24 08:56 Height 6 ft 6 ft Weight: 194 lb 2 oz 186 lb 6 oz BMI 26.3 25.2 BP 111/70 107/65 Blood Pressure Location Rt brachial Rt brachial Position Sitting Sitting Respiration 18 16 Pulse 69 76 Pulse Source Monitor Monitor Temp 97.9 F 97.9 F Temperature Source Temporal Artery Temporal Artery Pulse Oximetry (%) 94 99 Oxygen Delivery Method room air room air Intake Visit Reasons: 6 MONTH F/U PROSTATE, PSA PRIOR Is patient in pain?: Yes (BACK) Pain scale (1-10): 8 Allergies Sulfa (Sulfonamide Antibiotics) Allergy (Verified 07/18/24 08:55) Fever and skin rash Tetanus Vaccines and Toxoid Allergy (Verified 07/18/24 08:55) Rash meperidine (From Demerol) Adverse Reaction (Verified 07/18/24 08:55) Vomiting Medications ???Medication ???Instructions ???Recorded ???Confirmed ???Type finasteride 5 mg tablet 5 mg PO DAILY 09/07/18 07/18/24 History metformin 500 mg tablet,extended 500 mg PO DAILY 09/07/18 07/18/24 History release 24 hr Tamsulosin Hcl 0.4 mg PO DAILY 07/13/23 07/18/24 History lisinopril 5 mg tablet 5 mg PO DAILY 01/11/24 07/18/24 History aspirin 81 mg chewable tablet 81 mg PO QDAY 07/18/24 07/18/24 History meloxicam 7.5 mg tablet 7.5 mg PO QDAY 07/18/24 07/18/24 History rosuvastatin 20 mg tablet 20 mg PO QDAY 07/18/24 07/18/24 History Have you fallen in the past year?: Yes PFSH PFSH Medical History Indwelling urethral catheter present Constipation Wears dentures Cancer Diabetes Arthritis High cholesterol Back pain Testicular cancer Home Medications ???Medication ???Instructions ???Recorded ???Last Taken ???Type finasteride 5 mg tablet 5 mg PO DAILY 09/07/18 Unknown History metformin 500 mg tablet,extended 500 mg PO DAILY 09/07/18 Unknown History release 24 hr Tamsulosin Hcl 0.4 mg PO DAILY 07/13/23 Unknown History lisinopril 5 mg tablet 5 mg PO DAILY 01/11/24 Unknown History aspirin 81 mg chewable tablet 81 mg PO QDAY 07/18/24 Unknown History meloxicam 7.5 mg tablet 7.5 mg PO QDAY 07/18/24 Unknown History rosuvastatin 20 mg tablet 20 mg PO QDAY 07/18/24 Unknown History Allergy/AdvReac Type Severity Reaction Status Date / Time Sulfa (Sulfonamide Allergy Fever and Verified 07/18/24 08:55 Antibiotics) skin rash Tetanus Vaccines and Toxoid Allergy Rash Verified 07/18/24 08:55 meperidine (From Demerol) AdvReac Vomiting Verified 07/18/24 08:55 Family History Father Heart disease Diabetes Mother Myocardial infarction Alzheimer disease Grandmother Cancer Sister Breast cancer Surgical History S/P TURP (status post transurethral resection of prostate) Hx of cystoscopy Hx of knee surgery History of removal of testicle Social History Smoking Status: Former smoker pack-years: 30 Tobacco: How many years used: 30 alcohol intake: current alcohol intake frequency: holidays/special occasions only substance use type: does not use diet: diabetic Diagnosis: Tanisha Salter is an 84-year-old male diagnosed with stage KHADRA prostate adenocarcinoma (cT3N1, 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 From 05/06/2022 ??? 06/12/2022 he completed definitive radiation therapy with ADT. History of Present Illness: 01/13/2022: TRUS guided biopsy was performed.??? This demonstrated Vic score 3+4 adenocarcinoma involving 50% of 1 core in the left prostate base.??? All remaining biopsies were benign. 01/28/2022: Patient was seen by urology.??? Treatment options were discussed and recommendation was to proceed with radiation therapy concurrent with ADT. 02/12/2022: MRI pelvis with and without contrast was performed.??? This demonstrated a 1.3 x 0.9 cm moderately T2 hypointense lesion of the left lateral transitional zone at the mid gland which is bright on DWI and dark on ADC map.??? PI-RADS score 4.??? There does appear to be extraprostatic extension by 3 mm laterally.??? There is an enlarged left external iliac lymph node measuring 1.5 cm. 02/26/2022: PSMA PET scan was completed and this demonstrated evidence for a 1.3 cm hypodense lesion in the left posterior lateral prostate with increased SUV of 11. (more content not included)... Normal [facility] PSA,Total- Diagnosticon 11- PSA, DIAGNOSTIC < 0.01 Normal 0.0-4.0 [facility] Comment on above: Result Comment: This test was performed using the TPSA assay method for the Nano Terra chemistry system. Values obtained with different assay methods cannot be used interchangably. When changing PSA assays in the course of monitoring a patient, additional sequential testing should be carried out to confirm baseline values. Performed By: #### L [phone] #### [facility] [address] [place], [address] [facility] 07-12-2024 [facility] TANISHA SALTER ([id number]) 1940 M Date Time Provider Department 07/12/24 [facility] During your visit today, we recorded the following information about you: Irma Melgar MA 07/12/2024 8:44 AM Signed ----- Message from Yolande Warner MD sent at 07/12/2024 7:05 AM EST ----- Patient's blood work to evaluate for different types of arthritis is negative for signs of rheumatoid arthritis, gout, and auto immune disease. He has some mild elevation of a non specific inflammatory marker which I suspect is caused by his osteoarthritis. Awaiting xray results. F/u with OT and continue treatment as discussed in office. Irma Melgar MA 07/12/2024 8:52 AM Signed Called and spoke with Pt and Pt's daughter Loren. Relayed results. Verbalized understanding. Sending to schedulers as Pt needs set up for OT. SERGEY Flower Sherrie 07/13/2024 10:58 AM Signed Spoke with patient and he declined to schedule at this time and will call us back. Allergies As of Date: 07/12/2024 Noted Allergy Reaction DEMEROL (MEPERIDINE) 12/26/2017 11 - Vomiting SULFA (SULFONAMIDE ANTIBIOTICS) 12/26/2017 16 - Unknown Comments: Elevated temperature TETANUS TOXOID 12/26/2017 4 - Hives Date Reviewed: 07/08/2024 Reviewed by: Erika Hernandez LPN - Fully Assessed Reason for Visit: Results [95] Prescriptions as of 12/05/2024 - rosuvastatin (CRESTOR) 20 mg tablet Take 1 tablet by mouth daily at bedtime. - aspirin, enteric coated (ADULT LOW DOSE ASPIRIN) 81 mg EC tablet Take 1 tablet by mouth once daily. - lisinopril (ZESTRIL) 5 mg tablet Take 1 tablet by mouth once daily. - metFORMIN (GLUCOPHAGE) 1,000 mg tablet Take 0.5 tablets by mouth once daily. - meloxicam (MOBIC) 7.5 mg tablet Take 7.5 mg by mouth once daily. - Lancets Test blood sugar(s) 1 to 2 times daily. Dx: Type 2 DM - Controlled E11.9 Insulin: No - blood sugar diagnostic (BLOOD GLUCOSE TEST) test strip Test blood sugar(s) 1-2 times daily. Dx: Type 2 DM - Controlled E11.9 Insulin: No - tamsulosin (FLOMAX) 0.4 mg Take 0.4 mg by mouth once daily. Problem List As Of Date 07/12/2024 Noted Resolved Diabetes mellitus, type 2 (HCC) [E11.9] Hyperlipidemia [E78.5] BPH (benign prostatic hyperplasia) [N40.0] Testicular cancer (HCC) [C62.90] 08/17/2018 Diabetic polyneuropathy associated with type 2 *08/17/2018 Neck stiffness [M43.6] 10/10/2019 Chronic low back pain without sciatica [M54.50,*10/21/2021 Acute back pain with sciatica, right [M54.41] 10/22/2021 06/04/2022 Prostate cancer (HCC) [C61] 04/23/2022 Spinal stenosis, lumbar region, without neuroge*04/01/2023 Lumbar radiculopathy [M54.16] 04/01/2023 Elevated prostate specific antigen (PSA) [R97.2*05/08/2023 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] 03/24/2023 Lumbar spondylosis [M47.816] 07/01/2023 Encounter Status:Closed by IRMA MELGAR [facility]05[facility] Tele[facility] (FAMPWS) TANISHA SALTER ([id number]) 1940 M Date Time Provider Department 07/11/24 YOLANDE WARNER During your visit today, we recorded the following information about you: Irene Cabral RN 07/11/2024 4:16 PM Signed Patient requesting PCP to advise regarding recent lab results and hand xray, when able. Hand xray still in process at this time. Patient states he will not be home to take a call until Thursday07/12/24. FRANCSICO Guzman Christopher B, MD 07/12/2024 7:58 AM Signed I see some arthritis changes on his xray, but no obvious fractures or dislocation. Will await final read from radiologist. Erika Hernandez LPN 07/12/2024 1:58 PM Signed Phoned patient and reviewed message with him. He voiced understanding and aware we will call once final interpretation is in. Erika Hernandez LPN Allergies As of Date: 07/11/2024 Noted Allergy Reaction DEMEROL (MEPERIDINE) 12/26/2017 11 - Vomiting SULFA (SULFONAMIDE ANTIBIOTICS) 12/26/2017 16 - Unknown Comments: Elevated temperature TETANUS TOXOID 12/26/2017 4 - Hives Date Reviewed: 07/08/2024 Reviewed by: Erika Hernandez LPN - Fully Assessed Reason for Visit: Results [95] Prescriptions as of 07/12/2024 - meloxicam (MOBIC) 7.5 mg tablet Take 7.5 mg by mouth once daily. - albuterol HFA (VENTOLIN HFA) 90 mcg/actuation inhaler Inhale 2 Puffs as instructed every 4 hours as needed for wheezing/shortness of breath. - Lancets Test blood sugar(s) 1 to 2 times daily. Dx: Type 2 DM - Controlled E11.9 Insulin: No - blood sugar diagnostic (BLOOD GLUCOSE TEST) test strip Test blood sugar(s) 1-2 times daily. Dx: Type 2 DM - Controlled E11.9 Insulin: No - rosuvastatin (CRESTOR) 20 mg tablet Take 1 tablet by mouth daily at bedtime. - aspirin, enteric coated (ADULT LOW DOSE ASPIRIN) 81 mg EC tablet Take 1 tablet by mouth once daily. - lisinopril (ZESTRIL) 5 mg tablet Take 1 tablet by mouth once daily. - metFORMIN (GLUCOPHAGE) 1,000 mg tablet Take 0.5 tablets by mouth once daily. - tamsulosin (FLOMAX) 0.4 mg Take 0.4 mg by mouth once daily. - finasteride (PROSCAR) 5 mg tablet Take 5 mg by mouth once daily. Problem List As Of Date 07/11/2024 Noted Resolved Diabetes mellitus, type 2 (HCC) [E11.9] Hyperlipidemia [E78.5] BPH (benign prostatic hyperplasia) [N40.0] Testicular cancer (HCC) [C62.90] 08/17/2018 Diabetic polyneuropathy associated with type 2 *08/17/2018 Neck stiffness [M43.6] 10/10/2019 Chronic low back pain without sciatica [M54.50,*10/21/2021 Acute back pain with sciatica, right [M54.41] 10/22/2021 06/04/2022 Prostate cancer (HCC) [C61] 04/23/2022 Spinal stenosis, lumbar region, without neuroge*04/01/2023 Lumbar radiculopathy [M54.16] 04/01/2023 Elevated prostate specific antigen (PSA) [R97.2*05/08/2023 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] 03/24/2023 Lumbar spondylosis [M47.816] 07/01/2023 Encounter Status:Closed by ERIKA HERNANDEZ on 07/12/24 [place] [facility] 07-08-2024 CNOV Office Visit (FAMWS ) TANISHA SALTER ([id number]) 1940 M Date Time Provider Department 07/08/24 1:00 PM YOLANDE WARNER During your visit today, we recorded the following information about you: Pulse Respiration Blood pressure 82/minute 18/minute 114/72 Yolande Warner MD 07/08/2024 1:34 PM Signed Chief Complaint Patient presents with: Arthritis: Bilateral hands HPI Tanisha Salter is a 84 year old male who presents here today for Above Complaints. Patient here today complaining of difficulty closing his hands which has been worsening over the last 6 months. Left hand worse than the right. Index and thumb are the worst fingers. Difficulty moving MCP joints and has pain if he tries to close hand all of the way. States that he has trouble tying shoelaces and drops objects frequently. Is able to regain some ROM if he runs hands under warm water. Taking Meloxicam for his back, but does not help with his hands. Denies fever/chills, erythema, swelling. Symptoms are about the same throughout the day. Also notes that he had a fall at home 2-3 days ago while waking into house from garage. Didn't pick his foot up high enough and tripped and fell onto left elbow and bumped his head without LOC. Pain initially on the elbow which is improving with small abrasion. Treating with triple abx ointment. Denies bruising, swelling, slurred speech, facial droop, numbness/tingling/wea kness. Using cane for ambulation. Past medical history, appointments, medications, allergies reviewed. 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 Lundberg [place]. s/p radiation Spinal stenosis lumbar Testicular cancer (HCC) radiation- Previous Surgical History PAST SURGICAL HISTORY Procedure Laterality Date COLONOSCOPY 2011 normal CYSTOSCOPY 08/2023 HEMORRHOIDECTOMY 1960s ORCHIECTOMY SIMPLE Left 1983 testicular cancer, with radiation PAST SURGICAL HISTORY OF Left knee arthroscopy PAST SURGICAL HISTORY OF 10/2023 Bladder Surgery PAST SURGICAL HISTORY OF 10/09/2023 Revised surgery on bladder neck Dr. Lundberg TONSILLECTOMY HX childhood TRANSURETHRAL ELEC-SURG PROSTATECTOM 06/25/2022 [...] on File Prior to Visit Medication Sig meloxicam (MOBIC) 7.5 mg tablet Take 7.5 mg by mouth once daily. albuterol HFA (VENTOLIN HFA) 90 mcg/actuation inhaler Inhale 2 Puffs as instructed every 4 hours as needed for wheezing/shortness of breath. Lancets Test blood sugar(s) 1 to 2 times daily. Dx: Type 2 DM - Controlled E11.9 Insulin: No blood sugar diagnostic (BLOOD GLUCOSE TEST) test strip Test blood sugar(s) 1-2 times daily. Dx: Type 2 DM - Controlled E11.9 Insulin: No rosuvastatin (CRESTOR) 20 mg tablet Take 1 tablet by mouth daily at bedtime. aspirin, enteric coated (ADULT LOW DOSE ASPIRIN) 81 mg EC tablet Take 1 tablet by mouth once daily. lisinopril (ZESTRIL) 5 mg tablet Take 1 tablet by mouth once daily. metFORMIN (GLUCOPHAGE) 1,000 mg tablet Take 0.5 tablets by mouth once daily. tamsulosin (FLOMAX) 0.4 mg Take 0.4 mg by mouth once daily. finasteride (PROSCAR) 5 mg tablet Take 5 mg by mouth once daily. No current facility-administered medications on file prior to visit. Social History Social History Tobacco Use Smoking status: Former Current packs/day: 0.00 Average packs/day: 1.5 packs/day for 20.0 years (30.0 ttl pk-yrs) Types: Cigarettes Start date: 07/23/1970 Quit date: 07/23/1990 Years since quittin.9 Smokeless tobacco: Never Vaping Use Vaping status: Never Used Substance Use Topics Alcohol use: Yes Comment: rarely Drug use: No Review of Symptoms REVIEW OF SYSTEMS See HPI EXAM: BP 114/72 Pulse 82 Resp 18 SpO2 99% General Appearance: Well appearing, alert, in no acute distress, well-hydrated, well nourished.. Skin: small abrasion on point of right elbow without cellulitis or drainage. Head: Normocephalic, no masses, lesions, tenderness or abnormalities. Musculoskeletal: swelling of MCP, PIP, and DIP joints bi (more content not included)... Normal [facility] CRP [Mass/Vol] mg/L Normal <0.9 [facility] Comment on above: Order Comment: Speci men Type: BLOOD SPECIMENOrdering Facility: [facility] Address: [address] [place] [address] Performed By: #### 1 988-5, 39515-4, 3084-1 ####[facility] [id number] [place] [address] [place] Cyclic citrullinated peptide IgG Qnon 07-08-2024 CCP ANTIBODY IGG QUALITATIVE Negative Normal Negative [facility] Comment on above: Order Comment: Speci men Type: BLOOD SPECIMENOrdering Facility: [facility] Address: [address] [place] [address] Performed By: #### 3 3935-8 ####[facility] [id number] [place] [address] [place] ESR Westergren method (Bld) [Velocity]on 07-08-2024 ESR (Bld) [Velocity] 20 mm/h High 0-15 [facility] Comment on above: Order Comment: Speci men Type: BLOOD SPECIMENOrdering Facility: [facility] Address: [address] [place] [address] Performed By: #### 4 537-7 ####[facility] [id number] [place] [address] [place] Nuclear Ab IA Ql (S)on 07-08 [facility] SCR QUAL Negative Normal Negative [facility] Comment on above: Order Comment: Speci men Type: BLOOD SPECIMENOrdering Facility: [facility] Address: [address] [place] [address] Result Comment: The qualitative antinuclear antibody screen test performed using the following antigens: dsDNA, Chromatin, Ribosomal P, SS-A 60, SS-A 52, SS-B, Sm, SmRNP, SPRAY TECHNICIAN A, SPRAY TECHNICIAN 68, Scl-70, Bel-1, and Centromere B. Methodology: Multiplex flow immunoassay. Performed By: #### 4 7383-5 ####[facility] [id number] [place] [address] [place] Rheumatoid fact SerPl-aCncon 07-08-2024 Rheumatoid factor Qn 13 [IU]/mL Normal <16 [facility] Comment on above: Order Comment: Speci men Type: BLOOD SPECIMENOrdering Facility: [facility] Address: [address] [address] Performed By: #### 1 988-5, 26806-8, 3084-1 ####[facility] LABCL[facility] [id number] [address] [address] [place] Urate SerPl-mCncon 4 Urate [Mass/Vol] 5.7 mg/dL Normal 4.0-8.1 [facility] Comment on above: Order Comment: Speci men Type: BLOOD SPECIMENOrdering Facility: [facility] Address: [address] [place] [address] Performed By: #### 1 988-5, 10838-5, 3084-1 ####[facility] LABCLIA [id number] [address] [place] XR HAND 3V PA/LAT/OBL BILon 07-08-2024 XR HAND 3V PA/LAT/OBL CATHERINE * * *Final Report* * * DATE OF EXAM: Jul 08 2024 1:50PM WOX [id number] - XR HAND 3V PA/LAT/OBL CATHERINE / PROCEDURE REASON: multiple diagnoses * * * * Physician Interpretation * * * * EXAMINATION: XR HAND 3V PA/LAT/OBL CATHERINE CLINICAL HISTORY: Chronic bilateral hand pain Technique: XR HAND 3V PA/LAT/OBL CATHERINE -- BILATERAL with 3 views on 3 images Comparison: None RESULT: Right hand: No acute fracture or dislocation. Narrowing of the DIP joint of the right third digit. No periarticular erosions. Left hand: No acute fracture or dislocation. Joint spaces are maintained. No periarticular erosions. IMPRESSION: No acute osseous abnormality Driver'S License Reviewing Officer: PSCB Transcribe Date/Time: Jul 14 2024 1:52P Dictated by : JACQUIE KELLY MD This examination was interpreted and the report reviewed and electronically signed by: JACQUIE KELLY MD on Jul 14 2024 1:54PM EST [id number] Normal [facility] cCP IgG SerPl-aCncon 024 Cyclic citrullinated peptide IgG Qn <15 Normal <20 [facility] Comment on above: Order Comment: Speci men Type: BLOOD SPECIMENOrdering Facility: [facility] Address: [address] [place] [address] Performed By: #### 3 3935-8 ####[facility] LABCLIA [id number] TAM [place] [id number] STATES OF [facility] 06-25-2024 CNOV Office Visit (FAMPWS ) TANISHA SALTER ([id number]) 1940 M Date Time Provider Department 06/25/24 9:00 AM [facility] your visit today, we recorded the following information about you: Temperature Pulse Respiration Blood pressure 96.7 degrees 68/minute 18/minute 112/72 Weight 83.9 kg Yolande Warner MD 06/25/2024 9:24 AM Signed Chief Complaint Patient presents with: cough x 3 weeks HPI Tanisha Salter is a 84 year old male who presents here today for Above Complaints.. Patient complaining of dry cough x 3 weeks. Treated on 06/04 for bacterial conjunctivitis and was given tessalon for cough. Had f/u with Devora Borja 2 days later and advised supportive care. Still complaining of dry hacking cough which is worse in the evening. Tessalon did not help with cough. Treating with Delsym OTC which helps him with sleep. Admits to nasal congestion and rhinorrhea without sinus pain/pressure. Denies chest pain, chest congestion, SOB, wheezing, fever/chills, headaches, sore throat, ear pain/fullness, nausea, vomiting, diarrhea. No sick contacts prior to his symptoms. No improvement in symptoms at all. Past medical history, appointments, medications, allergies reviewed. 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 s/p radiation Spinal stenosis lumbar Testicular cancer (HCC) radiation- 1980s Previous Surgical History PAST SURGICAL HISTORY Procedure Laterality Date COLONOSCOPY 2011 normal CYSTOSCOPY 08/2023 HEMORRHOIDECTOMY 1960s ORCHIECTOMY SIMPLE Left 1983 testicular cancer, with radiation PAST SURGICAL HISTORY OF Left knee arthroscopy PAST SURGICAL HISTORY OF 10/2023 Bladder Surgery PAST SURGICAL HISTORY OF 10/09/2023 Revised surgery on bladder neck Dr. Lundberg TONSILLECTOMY HX childhood TRANSURETHRAL ELEC-SURG PROSTATECTOM 06/25/2022 [...] on File Prior to Visit Medication Sig blood sugar diagnostic (BLOOD GLUCOSE TEST) test strip Test blood sugar(s) 1-2 times daily. Dx: Type 2 DM - Controlled E11.9 Insulin: No rosuvastatin (CRESTOR) 20 mg tablet Take 1 tablet by mouth daily at bedtime. lisinopril (ZESTRIL) 5 mg tablet Take 1 tablet by mouth once daily. metFORMIN (GLUCOPHAGE) 1,000 mg tablet Take 0.5 tablets by mouth once daily. tamsulosin (FLOMAX) 0.4 mg Take 0.4 mg by mouth once daily. finasteride (PROSCAR) 5 mg tablet Take 5 mg by mouth once daily. Lancets Test blood sugar(s) 1 to 2 times daily. Dx: Type 2 DM - Controlled E11.9 Insulin: No aspirin, enteric coated (ADULT LOW DOSE ASPIRIN) 81 mg EC tablet Take 1 tablet by mouth once daily. No current facility-administered medications on file prior to visit. Social History Social History Tobacco Use Smoking status: Former Current packs/day: 0.00 Average packs/day: 1.5 packs/day for 20.0 years (30.0 ttl pk-yrs) Types: Cigarettes Start date: 07/23/1970 Quit date: 07/23/1990 Years since quittin.9 Smokeless tobacco: Never Vaping Use Vaping status: Never Used Substance Use Topics Alcohol use: Yes Comment: rarely Drug use: No Review of Symptoms REVIEW OF SYSTEMS See HPI EXAM: BP 112/72 Pulse 68 Temp (!) 35.9 ?C (96.7 ?F) (Temporal) Resp 18 Wt 83.9 kg (185 lb) SpO2 97% BMI 25.09 kg/m? General Appearance: Ill appearing, non toxic. Skin: Skin color, texture, turgor normal, no suspicious rashes or lesions. Head: Normocephalic, no masses, lesions, tenderness or abnormalities. Eyes: Anicteric sclera. Pupils are equally round and reactive to light. Extraocular movements are intact. . Ears: External ears normal, canals clear. Nose/Sinuses: Nares normal, septum midline, mucosa normal, no drainage or sinus tenderness. Oropharynx: Lips, mucosa, and tongue normal, teeth and gums normal, oropharynx normal. Neck: Supple, no adenopathy; thyroid symmetric, normal size, no bruits. Lungs: Lungs clear to auscultation. No wheezing, rhonchi, rales.. Heart: RRR without murmur, gallop, or rubs. No ectopy. Healt (more content not included)... Normal [facility] XR CHEST 2V FRONTAL/LATon XR CHEST 2V FRONTAL/LAT * * *Final Repor t* * * DATE OF EXAM: Jun 25 2024 9:39AM WOX [id number] - XR CHEST 2V FRONTAL/LAT / PROCEDURE REASON: Persistent cough for 3 weeks or longer * * * * Physician Interpretation * * * * EXAMINATION: CHEST RADIOGRAPH (2 VIEW FRONTAL and LATERAL) PATIENT/TECHNOLOGIST PROVIDED HISTORY: Pt. states cough for 3 weeks. CLINICAL HISTORY: 84 years old Male with Persistent cough for 3 weeks or longer MQ: XC2_6 EXAM DATE/TIME: 06/25/2024 9:39 AM COMPARISON: No relevant prior studies available. RESULT: Lines, tubes, and devices: None. Lungs and pleura: No consolidation, pleural effusion or pneumothorax. Cardiomediastinal silhouette: Normal cardiomediastinal silhouette. Bones and soft tissues: Flowing ossifications of the anterior longitudinal ligament at the anterior aspect of multiple contiguous thoracic vertebral bodies consistent with diffuse idiopathic skeletal hyperostosis. IMPRESSION: No acute radiographic abnormality. Driver'S License Reviewing Officer: KELLEY Transcribe Date/Time: Jun 25 2024 10:07A Dictated by : NELL HERNANDEZ DO This examination was interpreted and the report reviewed and electronically signed by: NELL HERNANDEZ DO on Jun 25 2024 10:09AM EST [id number] Normal [facility] XR Chest PA and Lateralon IMPRESSION: No acute radiographic abnormality. Driver'S License Reviewing Officer: KELLEY Transcribe Date/Time: Jun 25 2024 10:07A Dictated by : NELL HERNANDEZ DO This examination was interpreted and the report reviewed and electronically signed by: NELL HERNANDEZ DO on Jun 25 2024 10:09AM EST DIVISION OF RADIOLOGY * * *Final Report* * * DATE OF EXAM: Jun 25 2024 9:39AM WOX [id number] - XR CHEST 2V FRONTAL/LAT / PROCEDURE REASON: Persistent cough for 3 weeks or longer * * * * Physician Interpretation * * * * EXAMINATION: CHEST RADIOGRAPH (2 VIEW FRONTAL & LATERAL) PATIENT/TECHNOLOGIST PROVIDED HISTORY: Pt. states cough for 3 weeks. CLINICAL HISTORY: 84 years old Male with Persistent cough for 3 weeks or longer MQ: XC2_6 EXAM DATE/TIME: 06/25/2024 9:39 AM COMPARISON: No relevant prior studies available. RESULT: Lines, tubes, and devices: None. Lungs and pleura: No consolidation, pleural effusion or pneumothorax. Cardiomediastinal silhouette: Normal cardiomediastinal silhouette. Bones and soft tissues: Flowing ossifications of the anterior longitudinal ligament at the anterior aspect of multiple contiguous thoracic vertebral bodies consistent with diffuse idiopathic skeletal hyperostosis. DIVISION OF RADIOLOGY Provider, Luci Lesley Wetzel - 06/25/2024 * * *Final Report* * * DATE OF EXAM: Jun 25 2024 9:39AM WOX [id number] - XR CHEST 2V FRONTAL/LAT / PROCEDURE REASON: Persistent cough for 3 weeks or longer * * * * Physician Interpretation * * * * EXAMINATION: CHEST RADIOGRAPH (2 VIEW FRONTAL & LATERAL) PATIENT/TECHNOLOGIST PROVIDED HISTORY: Pt. states cough for 3 weeks. CLINICAL HISTORY: 84 years old Male with Persistent cough for 3 weeks or longer MQ: XC2_6 EXAM DATE/TIME: 06/25/2024 9:39 AM COMPARISON: No relevant prior studies available. RESULT: Lines, tubes, and devices: None. Lungs and pleura: No consolidation, pleural effusion or pneumothorax. Cardiomediastinal silhouette: Normal cardiomediastinal silhouette. Bones and soft tissues: Flowing ossifications of the anterior longitudinal ligament at the anterior aspect of multiple contiguous thoracic vertebral bodies consistent with diffuse idiopathic skeletal hyperostosis. IMPRESSION IMPRESSION: No acute radiographic abnormality. Driver'S License Reviewing Officer: PSCB Transcribe Date/Time: Jun 25 2024 10:07A Dictated by : NELL HERNANDEZ DO This examination was interpreted and the report reviewed and electronically signed by: NELL HERNANDEZ DO on Jun 25 2024 10:09AM EST [facility] Radiology [facility]narrative[facility] Chest PA and LateralOrder ed By: [facility] Provider on 06-25-2024 [facility] Inital Evaluation (1) - PTon 06-13-2024 Inital Evaluation (1) - PT [facility] Physical Therapy [facility] [address] [place] [address] [address] [place] [address] / REHABILITATION SERVICES INITIAL EVALUATION MR#: [id number] Acct: [id number] Name: TANISHA SALTER Rep #: [id number] : 1940 84 From: Erna Flower PT Cert. MDT Referring Dr.: Dr. Deven Abraham MD Status: REG RCR Insurance: MEDICARE PART A B [employer] Patient's Visit Information Visit Information Visit Information: TANISHA SALTER is a 84 year old M referred to Physical Therapy by Dr. Deven Abraham MD with a diagnosis of BACK PAIN AND BALANCE. Date of Evaluation: 06/13/24 Physical Therapist: Erna Flower PT, Cert MDT Visit Plan Frequency: 2-3x /Week Duration: 4-6 Weeks Plan: AQUATIC THERAPY FOR PAIN RELEIF, POSTURE CORRECTION/STRENGTHEN ING, INSTRUCTION IN APPROPRIATE BODY MECHANICS AND ACTIVITY MODIFICATIONS. DLS WITH A NEUTRAL SPINE TOLERATED. CATHERINE LE ROM, STRETCHING AND STRENGTHENING. HEP INSTRUCTION. Subjective Subjective: Work/Leisure: RETIRED Present symptoms: CATHERINE LOW BACK PAIN R > L. CATHERINE THIGH PAIN. Present since: YEARS AGO Pain Scale: WORST 7/10, LEAST 0/10 Currently: 0/10 Is it getting better, worse or staying the same: STAYING THE SAME Commenced as a result of: NO APPARENT REASON Symptoms at onset: UNSURE Worse: WASHING DISHES, STANDING, WALKING Better: SITTING, LYING DOWN Disturbed sleep: NO Previous history/Previous treatment: MASSAGE, PHYSICAL THERAPY (INCREASED PAIN) AND CHIROPRACTIC WITH LAST VISIT BEING YEARS AGO (WITH BENEFIT). NO BACK SURGERY. 2 ADRIANO'S AND 4 BLOCKS WITHOUT BENEFIT - LAST PROCEEDURE WAS A FEW WEEKS OR SO AGO. BACK SURGERY RECOMMENDED IN THE PAST AND PATIENT REPORTS HE DECLINED. Treatment this episode: NOT CURRENTLY ON ANYTHING FOR HIS BACK PER PATIENT REPORT. Coughing/sneezing/str aining: NEGATIVE FOR INCREASED PAIN. Gait: TIME AND DISTANCE LIMITED BY BACK AND LEG PAIN. USES CANE NEEDED FOR STABILITY RECENT LAST WEEK FOR UNFAMILAR PLACE. DENIES ANY FALLS. Bowel or Bladder Dysfunction: H/O BLADDER CANCER. DOES HAVE SOME URINARY LEAKING. DOES NOT HAVE BOWEL INCONTINENCE. Unexplained weight loss: NO Imaging: PATIENT DOES NOT RECALL THE LAST TIME HE HAD IMAGING OF HIS LOW BACK. PMH/Recent major surgery: H/O BLADDER CANCER TREATED WITH TERP PROCEEDURE 2022. RADIATION FOR PROSTATE CANCER 2021. Diabetes Arthritis High cholesterol Back pain Testicular cancer S/P TURP (status post transurethral resection of prostate) Hx of cystoscopy Hx of knee surgery History of removal of testicle Objective Objective: Standing Posture: R LATERAL SHIFT Other Observations: THIS PATIENT AMBULATES INDEP'LY INTO PT IN R LATERAL SHIFT, FH, WITHOUT ANY AD'S, FAIR CADANCE AND WITHOUT LOB. HE IS INDEP WITH TRANSFERS AND A GOOD HISTORIAN. HE REPORTS HE IS HERE BECAUSE HE LIKES DR. ABRAHAM AND DR. ABRAHAM RECOMMENDED IT AND HIS DAUGHTER WANTS HIM TO TRY IT. Sensory deficit: CATHERINE LE LIGHT TOUCH SENSATION GROSSLY INTACT. ROM deficit: VERY TIGHT CATHERINE LE HS AND GASTROC-SOLEUS COMPLEX'S. Motor deficit: CATHERINE HIPS GROSSLY 4-/5, KNEES 4-/5, ANKLES 4/5. Lumbar mvmt loss: flex - MOD TO BABAR ext - BABAR R SG - BABAR L SG - MOD Core strength: POOR Palpation: PATIENT DENIES PAIN WITH THORACIC, LUMBAR AND SACRAL REGION PALPATION. TUG TEST: 10.10 SEC WITHOUT AD. 30 STS TEST WITH CATHERINE UE ASSIST = 10. SLS - PATIENT IS UNABLE TO SLS MORE THAN 1-2 SEC ON EA LE WITHOUT UE ASSIST. TANDEM STANCE. PATIENT IS ABLE TO TANDEM STANCE WITH EA LE IN FRONT OF THE OTHER IN STATIC POSITION WITHOUT UE ASSIST X > 5 SEC EA BUT UNABLE TO TANDEM WALK. Balance/Special Test Scores Oswestry Low Back Score: 17 Goals Goal 1:: DECREASE C/O BACK AND LE SX'S BY AT LEAST 50% TO EASE ADL'S. Goal Time Frame: 4-6 Weeks Goal 2:: PATIENT WILL BE ABLE TO COMPLETE 12 STS IN 30 SEC WITHOUT UE ASSIST TO DEMONSTATE INCREASED LE STRENGTH Goal Time Frame: 4-6 Weeks Goal 3:: PATIENT WILL BE INDEP WITH A WATER EX PROGRAM Goal Time Frame: 4-6 Weeks Rehabilitation Potential Physical Therapy Diagnosis: CORE STIFFNESS AND WEAKNESS. LOW BACK AND THIGH PAIN LIMITING STANDING AND WALKING FUNCTION WHICH LIMITS ADL'S. Rehabilitation Potential: Fair Anticipated Interventions Patient/Client Instruction: Educate patient on: Condition, Plan of Care and Risk Factors For the Purpose of:: To improve self management Therapeutic Exercise to Include: Strength training, Body mechanics, Postural training, Flexibilty training, Gait and locomotor training, Neuromotor development, In an aquatic setting and Dynamic Lumbar Stabilization For the Purpose of:: To decrease pain, To improve muscle performance and motor function, To increase tolerance to activity/condition/po sition, To improve ability of physical actions for home/community/work/l eisure, To improve gait and locomotor functions, To increase flexibility/ROM and To (more content not included)... Normal [facility] CNOVon 06-06-2024 OV Office Visit (FAMPWS ) TANISHA SALTER ([id number]) 1940 M Date Time Provider Department 06/06/24 8:40 AM DEVORA BORJA During your visit today, we recorded the following information about you: Pulse Respiration Blood pressure Weight 76/minute 16/minute 117/67 83.8 kg Devora Borja APRN.CNP 06/06/2024 12:01 PM Signed This is a 84 year old male who presents today with: Patient presents with: Follow Up: EC follow up HISTORY OF PRESENT ILLNESS: Tanisha Salter is a 84 year old male. Patient presents with: Follow Up: EC follow up Patient of Dr. Warner here in the office for eye pain and discharge. Was seen in [facility] on 06/04/2024, diagnosed with conjunctivitis and URI. Placed on Polytrim for conjunctivitis. Tessalon Perles given for cough. Symptoms started last . Today is the 3rd day on antibiotic eye drop. Cough is worse at night time. Cough is dry. Refers that he cleanses the eyes when he showers. No SOB or difficulty breathing. 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 s/p radiation Spinal stenosis lumbar Testicular cancer (HCC) radiation- PAST SURGICAL HISTORY Procedure Laterality Date COLONOSCOPY 2011 normal CYSTOSCOPY 08/2023 HEMORRHOIDECTOMY 1960s ORCHIECTOMY SIMPLE Left 1983 testicular cancer, with radiation PAST SURGICAL HISTORY OF Left knee arthroscopy PAST SURGICAL HISTORY OF 10/2023 Bladder Surgery PAST SURGICAL HISTORY OF 10/09/2023 Revised surgery on bladder neck Dr. Lundberg TONSILLECTOMY HX childhood TRANSURETHRAL ELEC-SURG PROSTATECTOM 06/25/2022 ALLERGIES Demerol [Meperidine], Sulfa (Sulfonamide Antibiotics), and Tetanus Toxoid MEDICATIONS Current Outpatient Medications Medication Sig trimethoprim-polymyxi n (POLYTRIM) 10,000 unit- 1 mg/mL ophthalmic solution Use 1 Drop in the right eye every 4 hours for 7 days. benzonatate (TESSALON PERLE) 100 mg capsule Take 1 capsule by mouth three times a day as needed for cough for up to 7 days. Lancets Test blood sugar(s) 1 to 2 times daily. Dx: Type 2 DM - Controlled E11.9 Insulin: No blood sugar diagnostic (BLOOD GLUCOSE TEST) test strip Test blood sugar(s) 1-2 times daily. Dx: Type 2 DM - Controlled E11.9 Insulin: No rosuvastatin (CRESTOR) 20 mg tablet Take 1 tablet by mouth daily at bedtime. aspirin, enteric coated (ADULT LOW DOSE ASPIRIN) 81 mg EC tablet Take 1 tablet by mouth once daily. lisinopril (ZESTRIL) 5 mg tablet Take 1 tablet by mouth once daily. metFORMIN (GLUCOPHAGE) 1,000 mg tablet Take 0.5 tablets by mouth once daily. tamsulosin (FLOMAX) 0.4 mg Take 0.4 mg by mouth once daily. finasteride (PROSCAR) 5 mg tablet Take 5 mg by mouth once daily. No current facility-administered medications for this visit. FAMILY HISTORY Problem Relation Age of Onset Alzheimer's Disease Mother Heart Mother Diabetes Father Heart Father Cancer Sister No Known Problems Brother No Known Problems Maternal Grandmother No Known Problems Maternal Grandfather Diabetes Paternal Grandmother No Known Problems Paternal Grandfather Social History Tobacco Use Smoking status: Former Current packs/day: 0.00 Average packs/day: 1.5 packs/day for 20.0 years (30.0 ttl pk-yrs) Types: Cigarettes Start date: 07/23/1970 Quit date: 07/23/1990 Years since quittin.8 Smokeless tobacco: Never Vaping Use Vaping status: Never Used Substance Use Topics Alcohol use: Yes Comment: rarely Drug use: No REVIEW OF SYSTEMS GENERAL: No weight loss, malaise or fevers/chills HEENT: + Eye Discharge NECK: Negative for lumps, goiter, pain and significant neck swelling RESPIRATORY: + Cough CARDIOVASCULAR: Negative for chest pain, leg swelling, orthopnea, or palpitations GI: No nausea, vomiting, or diarrhea/constipation . No hematochezia/melena. No heartburn or reflux symptoms. : No history of dysuria, frequency or incontinence MUSCULOSKELETAL: Negative for joint pain or swelling. SKIN: Negative for lesions, rash, and itching ENDOCRINE: Negative for cold or heat intolerance, polyuria, polydipsia and goiter NEURO: No history of headaches, syncope, paralysis, seizures or tremors MOOD: Negative for depression, anxiety, or suicidal ideation. EXAM: BP 117/67 Pulse 76 Resp 16 Wt 83.8 kg (184 lb 11.9 oz) SpO2 98% BMI 25.06 kg/m? PHYSICAL EXAM: General Appearance: Well appearing, alert, in no acute distress, well-hydrated, well nourished. Skin: Skin color, texture, turgor normal, no suspicious rashes or lesions. Head: Normocephalic, no masses, l (more content not included)... Normal [facility] CNOVon 06-04-2024 CNOV Office Visit (UCWSTR ) JOIETANISHA ([id number]) 1940 M Date Time Provider Department 06/04/24 11:45 AM GLORIA CARVER [facility] During your visit today, we recorded the following information about you: Temperature Pulse Respiration Blood pressure 97.3 degrees 80/minute 18/minute 128/78 Weight 84 kg Gloria Carver APRN.CNP 06/04/2024 12:02 PM Signed This note was created using [employer]. Subjective Tanisha Salter is a 84 year old male. Cough Associated symptoms include eye redness. Eye Problem Associated symptoms include coughing. Review of Systems Eyes: Positive for discharge, redness and itching. Respiratory: Positive for cough. Objective BP 128/78 Pulse 80 Temp 36.3 ?C (97.3 ?F) Resp 18 Wt 84 kg (185 lb 3 oz) SpO2 95% BMI 25.12 kg/m? Physical Exam Eyes: General: Right eye: Discharge present. Conjunctiva/sclera: Right eye: Right conjunctiva is injected. Exudate present. Cardiovascular: Rate and Rhythm: Normal rate. Pulmonary: Breath sounds: Normal breath sounds. Neurological: Mental Status: He is alert. Assessment and Plan ASSESSMENT/PLAN: 1. Bacterial conjunctivitis - ICD9: 372.39, 041.9, ICD10: H10.9 (primary diagnosis) - see medication orders - course and contagiousness issues discussed, including hand washing. - Instructed to call if high fever, development of periorbital redness or swelling, eye pain, visual changes, concerns or if symptoms persist. 2. URI, acute - ICD9: 465.9, ICD10: J06.9 - Discussed viral etiology and rationale for treatment. - Symptomatic treatment with prn analgesia - Supportive care with fluids and rest - Follow up in 3-5 days if symptoms persist or sooner if worsening of symptoms - Tessalon perle ordered Gloria Carver APRN.CNP Medical Decision Making: Problems: Low: Acute, uncomplicated illness or injury Risk: Moderate: Drug management Medical Decision Making Level: 3 - Low Allergies As of Date: 06/04/2024 Noted Allergy Reaction DEMEROL (MEPERIDINE) 12/26/2017 11 - Vomiting SULFA (SULFONAMIDE ANTIBIOTICS) 12/26/2017 16 - Unknown Comments: Elevated temperature TETANUS TOXOID 12/26/2017 4 - Hives Date Reviewed: 06/04/2024 Reviewed by: Autumn Hale LPN - Fully Assessed Reason for Visit: Cough [28] Cmt: Worse at HS, some congestion x 1 week Eye Problem [43] Cmt: R eye redness, itching, drainage, crusted shut this am Primary Visit Diagnosis:Bacterial conjunctivitis [H10.9] Other Visit Diagnosis:URI, acute [J06.9] Order(s):trimethoprim -polymyxin (POLYTRIM) 10,000 unit- 1 mg/mL ophthalmic solutionUse 1 Drop in the right eye every 4 hours for 7 days.Disp: 10 mLRfl: 0 benzonatate (TESSALON PERLE) 100 mg capsuleTake 1 capsule by mouth three times a day as needed for cough for up to 7 days.Disp: 21 capsuleRfl: 0 Prescriptions as of 06/04/2024 - trimethoprim-polymyxi n (POLYTRIM) 10,000 unit- 1 mg/mL ophthalmic solution Use 1 Drop in the right eye every 4 hours for 7 days. - benzonatate (TESSALON PERLE) 100 mg capsule Take 1 capsule by mouth three times a day as needed for cough for up to 7 days. - Lancets Test blood sugar(s) 1 to 2 times daily. Dx: Type 2 DM - Controlled E11.9 Insulin: No - blood sugar diagnostic (BLOOD GLUCOSE TEST) test strip Test blood sugar(s) 1-2 times daily. Dx: Type 2 DM - Controlled E11.9 Insulin: No - rosuvastatin (CRESTOR) 20 mg tablet Take 1 tablet by mouth daily at bedtime. - aspirin, enteric coated (ADULT LOW DOSE ASPIRIN) 81 mg EC tablet Take 1 tablet by mouth once daily. - lisinopril (ZESTRIL) 5 mg tablet Take 1 tablet by mouth once daily. - metFORMIN (GLUCOPHAGE) 1,000 mg tablet Take 0.5 tablets by mouth once daily. - tamsulosin (FLOMAX) 0.4 mg Take 0.4 mg by mouth once daily. - finasteride (PROSCAR) 5 mg tablet Take 5 mg by mouth once daily. Problem List As Of Date 06/04/2024 Noted Resolved Diabetes mellitus, type 2 (HCC) [E11.9] Hyperlipidemia [E78.5] BPH (benign prostatic hyperplasia) [N40.0] Testicular cancer (HCC) [C62.90] 08/17/2018 Diabetic polyneuropathy associated with type 2 *08/17/2018 Neck stiffness [M43.6] 10/10/2019 Chronic low back pain without sciatica [M54.50,*10/21/2021 Acute back pain with sciatica, right [M54.41] 10/22/2021 06/04/2022 Prostate cancer (HCC) [C61] 04/23/2022 Spinal stenosis, lumbar region, without neuroge*04/01/2023 Lumbar radiculopathy [M54.16] 04/01/2023 Elevated prostate specific antigen (PSA) [R97.2*05/08/2023 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] 03/24/2023 Lumbar spondylosis [M47.816] 07/01/2023 Prescriptions ordered this encounter Disp Refills Start End POLYMYXIN B SULFATE 10,000 UNIT-TRIM* 10 mL 0 06/04/2024 06/11/2024 Route: RIGHT EYE Sig: Use 1 Drop in the right eye every 4 hours for 7 days. BENZONATATE 100 MG CAPSULE 21 c* 0 06/04/2024 06/11/2024 Route: ORAL Sig: Take (more content not included)... Normal [facility]31[facility] JOIETANISHA Malcolm ([id number]) 1940 M Date Time Provider Department 05/31/24 [facility] During your visit today, we recorded the following information about you: January Ruelas LPN 05/31/2024 4:56 PM Signed Daughter Loren calling to let you know pt is getting an epidural done tody by Dr. Abraham at [facility]. They were instructed pt's blood sugar may go up over the next 2 weeks. They are going to check on getting a glucose machine at [facility] since they are so close. If they don't get OTC they will call for orders. Main reason daughter is calling or: Checking to see what pt's blood sugar should run after having this injection. Please advise daughter. RICHARD Chapman Christopher B, MD 05/31/2024 5:00 PM Signed Ideally his blood sugar would stay below 150 when fasting and before bed. Call with readings above 180. Anuradha Tesfaye LPN 05/31/2024 5:09 PM Signed Patient's daughter notiifed and verbalized understanding. Daughter is requesting glucose monitor and test strips to check blood sugars. Yolande Warner MD 05/31/2024 5:41 PM Signed Rx sent as requested. January Ruelas LPN 06/01/2024 8:19 AM Signed Spoke to daughter and pt will need lancets also called in. RICHARD Chapman Christopher B, MD 06/01/2024 8:20 AM Signed Rx sent. Apolonia Barnes LPN 06/01/2024 10:40 AM Signed Phoned and spoke to Loren aware rx for meter, strips, lancets were sent to pharmacy with understanding. Irene Cabral RN 06/01/2024 1:02 PM Signed Patient's daughter Loren calling in with diabetic management related question. Information provided. Irene Cabral RN Allergies As of Date: 05/31/2024 Noted Allergy Reaction DEMEROL (MEPERIDINE) 12/26/2017 11 - Vomiting SULFA (SULFONAMIDE ANTIBIOTICS) 12/26/2017 16 - Unknown Comments: Elevated temperature TETANUS TOXOID 12/26/2017 4 - Hives Date Reviewed: 05/26/2024 Reviewed by: La Forrester RN - Fully Assessed Reason for Visit: question on blood sugar [Other] Primary Visit Diagnosis:Controlled type 2 diabetes mellitus without complication, without long-term current use of insulin (HCC) [E11.9] Order(s):blood sugar diagnostic (BLOOD GLUCOSE TEST) test stripTest blood sugar(s) 1-2 times daily. Dx: Type 2 DM - Controlled E11.9 Insulin: NoDisp: 50 StripRfl: 11 Blood-Glucose Meter monitoring kitGlucose Meter of Choice - Kit - Dx: Type 2 DM - Controlled E11.9Disp: 1 EachRfl: 0 LancetsTest blood sugar(s) 1 to 2 times daily. Dx: Type 2 DM - Controlled E11.9 Insulin: NoDisp: 100 EachRfl: 11 Prescriptions as of 06/01/2024 - Lancets Test blood sugar(s) 1 to 2 times daily. Dx: Type 2 DM - Controlled E11.9 Insulin: No - blood sugar diagnostic (BLOOD GLUCOSE TEST) test strip Test blood sugar(s) 1-2 times daily. Dx: Type 2 DM - Controlled E11.9 Insulin: No - Blood-Glucose Meter monitoring kit Glucose Meter of Choice - Kit - Dx: Type 2 DM - Controlled E11.9 - rosuvastatin (CRESTOR) 20 mg tablet Take 1 tablet by mouth daily at bedtime. - aspirin, enteric coated (ADULT LOW DOSE ASPIRIN) 81 mg EC tablet Take 1 tablet by mouth once daily. - lisinopril (ZESTRIL) 5 mg tablet Take 1 tablet by mouth once daily. - metFORMIN (GLUCOPHAGE) 1,000 mg tablet Take 0.5 tablets by mouth once daily. - tamsulosin (FLOMAX) 0.4 mg Take 0.4 mg by mouth once daily. - finasteride (PROSCAR) 5 mg tablet Take 5 mg by mouth once daily. Problem List As Of Date 05/31/2024 Noted Resolved Diabetes mellitus, type 2 (HCC) [E11.9] Hyperlipidemia [E78.5] BPH (benign prostatic hyperplasia) [N40.0] Testicular cancer (HCC) [C62.90] 08/17/2018 Diabetic polyneuropathy associated with type 2 *08/17/2018 Neck stiffness [M43.6] 10/10/2019 Chronic low back pain without sciatica [M54.50,*10/21/2021 Acute back pain with sciatica, right [M54.41] 10/22/2021 06/04/2022 Prostate cancer (HCC) [C61] 04/23/2022 Spinal stenosis, lumbar region, without neuroge*04/01/2023 Lumbar radiculopathy [M54.16] 04/01/2023 Elevated prostate specific antigen (PSA) [R97.2*05/08/2023 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] 03/24/2023 Lumbar spondylosis [M47.816] 07/01/2023 Prescriptions ordered this encounter Disp Refills Start End BLOOD SUGAR DIAGNOSTIC STRIPS 50 S* 11 05/31/2024 Sig: Test blood sugar(s) 1-2 times daily. Dx: Type 2 DM - Controlled E11.9 Insulin: No BLOOD-GLUCOSE METER KIT 1 Ea* 0 05/31/2024 06/01/2024 Sig: Glucose Meter of Choice - Kit - Dx: Type 2 DM - Controlled E11.9 LANCETS 100 * 11 06/01/2024 Sig: Test blood sugar(s) 1 to 2 times daily. Dx: Type 2 DM - Controlled E11.9 Insulin: No Encounter Status:Closed by APOLONIA BARNES on 06/01/24 [place] 05-27-2024 [facility] Telephone (FAMPWS) JAYLINTANISHA BENDER ([id number]) 1940 M Date Time Provider Department 05/27/24 YOLANDE WARNER During your visit today, we recorded the following information about you: Erika Hernandez LPN 05/27/2024 9:52 AM Signed Patient stopped into the office and stated he was going to be completing his PT outside of the [facility]. Patient requested orders be sent to Dr Estrada and gave me a phone number of [phone]. Asked patient if he meant Dr Abraham? He stated Oh is that his name? I advised him that the number he gave was for Dr Abraham. He sated he talked with his nurse and they said to send orders over to their office. Forwarded PT order most recent OV note and face sheet to Dr Abraham's office as requested. Erika Hernandez LPN Allergies As of Date: 05/27/2024 Noted Allergy Reaction DEMEROL (MEPERIDINE) 12/26/2017 11 - Vomiting SULFA (SULFONAMIDE ANTIBIOTICS) 12/26/2017 16 - Unknown Comments: Elevated temperature TETANUS TOXOID 12/26/2017 4 - Hives Date Reviewed: 05/26/2024 Reviewed by: La Forrester, RN - Fully Assessed Reason for Visit: Orders [681] Prescriptions as of 05/27/2024 - rosuvastatin (CRESTOR) 20 mg tablet Take 1 tablet by mouth daily at bedtime. - aspirin, enteric coated (ADULT LOW DOSE ASPIRIN) 81 mg EC tablet Take 1 tablet by mouth once daily. - lisinopril (ZESTRIL) 5 mg tablet Take 1 tablet by mouth once daily. - metFORMIN (GLUCOPHAGE) 1,000 mg tablet Take 0.5 tablets by mouth once daily. - tamsulosin (FLOMAX) 0.4 mg Take 0.4 mg by mouth once daily. - finasteride (PROSCAR) 5 mg tablet Take 5 mg by mouth once daily. Problem List As Of Date 05/27/2024 Noted Resolved Diabetes mellitus, type 2 (HCC) [E11.9] Hyperlipidemia [E78.5] BPH (benign prostatic hyperplasia) [N40.0] Testicular cancer (HCC) [C62.90] 08/17/2018 Diabetic polyneuropathy associated with type 2 *08/17/2018 Neck stiffness [M43.6] 10/10/2019 Chronic low back pain without sciatica [M54.50,*10/21/2021 Acute back pain with sciatica, right [M54.41] 10/22/2021 06/04/2022 Prostate cancer (HCC) [C61] 04/23/2022 Spinal stenosis, lumbar region, without neuroge*04/01/2023 Lumbar radiculopathy [M54.16] 04/01/2023 Elevated prostate specific antigen (PSA) [R97.2*05/08/2023 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] 03/24/2023 Lumbar spondylosis [M47.816] 07/01/2023 Encounter Status:Closed by ERIKA HERNANDEZ on 05/27/24 [place] CNOVon 05-26-2024 CNOV Office Visit (PODIWS ) TANISHA SALTER ([id number]) 1940 M Date Time Provider Department 05/26/24 8:00 AM LUCINDA KOHLER PODIWS During your visit today, we recorded the following information about you: La Forrester, FRANCISCO 05/26/2024 8:20 AM Signed Patient presents with: Left Foot - Established Patient, Follow Up, Diabetic Foot Care Right Foot - Established Patient, Follow Up, Diabetic Foot Care Patient presents for follow up diabetic foot care. RAFAEL 03/24/24 Lucinda Kohler 05/26/2024 8:20 AM Signed Last saw pcp: 05/10/24 Subjective: Patient presents to clinic c/o painful toenails. They state that the nails are especially painful with shoe gear and pressure. Patient states that nails 1-5 b/l are painful. No other pedal complaints at this time. Patient states no change in medications or medical history since last visit. Objective: Patient presents to clinic ambulating in [facility] Vasc: DP and PT pulses are palpable [...] bilateral were debrided in length and thickness. Discussed options for dystrophic toenails not limited to continued topical care vs oral medication vs removal. Patient has elected to continue with topical care Patient was instructed on the continued importance of diabetic foot care along with proper diet and keeping their blood sugar under control to prevent complications. Patient is to RTC in 2 months TODD Pan Matthew 05/26/2024 8:07 AM Signed Diabetes Foot Care Instructions When you have [...] (or decreased sensation in your feet) a energy director should always cut your toenails. Be Careful [...] shoes/boots that will protect your feet from va (more content not included)... Normal [facility] CNOVon 05-17-2024 CNOV Office Visit (PERVMN ) TANISHA SALTER ([id number]) 1940 M Date Time Provider Department 05/17/24 9:00 AM DIANNA VALENCIA During your visit today, we recorded the following information about you: Pulse Respiration Blood pressure Weight 68/minute 16/minute 137/66 83.9 kg Height 1.829 m Dianna Valencia MD 05/17/2024 11:17 AM Signed [facility] [place] Jeanne Tristan Department of Cardiovascular Medicine SECTION OF VASCULAR MEDICINE OUTPATIENT VISIT DATE May 16, 2024 OUTPATIENT VISIT TYPE CONSULT Name: Tanisha Salter Tanisha Salter is a 84 year old male with a past history as outlined below presenting today for initial Vascular Medicine consult regarding abnormal vascular imaging. . EMR and chart reviewed. Born 1940 in [place], lived there for 30 years. Healthy as a child, no developmental milestone issues. No congenital limb discrepancy or vascular malformations. FH reviewed for any significant vascular issues.FH of heart disease. Extensive records reviewed including progress notes, specialty consultations, procedure notes, hospital notes, labs, vascular testing, triage notes, and available applicable information in regard to initial vascular consultation. Referral information and appropriate triages were perused as well. Records, charts and EMR perused and reviewed at length prior to initial visit as necessary. PMH reviewed. No history of stroke, LA, TIA. No history of VTE or thrombophila. History of testicular and prostate cancer. Had 5 weeks of RT.. No history of HTN, or hyperlipidemia. Patient has a history of spinal stenosis and chronic back pain and sees pain management. He has a history of BPH and prostate cancer. He follows with oncology. He has a history of hypertension, hyperlipidemia, and diabetes. Patient follows closely with his primary care team. At his recent visit and abdominal aorta ultrasound was ordered and showed a mildly dilated aorta at 2.4 cm which was similar to his CT scan from last year. He was noted to have evidence of atherosclerosis and concern for aortic disease and was recommended a vascular medicine evaluation. Patient presented to [facility] in May 2024 towards this end. Patient has chronic back pain from spinal stenosis. Uses cane, LBP only, no calf, buttock or thigh claudication. No digital color changes. No limb swelling or new skin changes. No neurovascular symptoms. No chest pain, SOB or SALAZAR. Medications reviewed and discussed, on metformin, statin and ACEI. Aspirin naive. [place]. Daughter accompanied patient at the time of initial consultation. Has two daughters, one lives close by. Quit smoking in the . No special diet. Used to exercise but back issues preclude some of his exercises. Retired from [employer], moved to [place] about 6 years ago. Is a . Has 6 grand kids. Used to play [employer], likes the beach and to travel. 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 Spinal stenosis lumbar Testicular cancer (HCC) radiation- PAST SURGICAL HISTORY Procedure Laterality Date COLONOSCOPY 2011 normal CYSTOSCOPY 08/2023 HEMORRHOIDECTOMY 1960s ORCHIECTOMY SIMPLE Left 1982 testicular cancer, with radiation PAST SURGICAL HISTORY OF Left knee arthroscopy PAST SURGICAL HISTORY OF 10/2023 Bladder Surgery PAST SURGICAL HISTORY OF 10/09/2023 Revised surgery on bladder neck Dr. Lundberg TONSILLECTOMY HX childhood TRANSURETHRAL ELEC-SURG PROSTATECTOM 06/25/2022 FAMILY HISTORY Problem Relation Age of Onset Alzheimer's Disease Mother Heart Mother Diabetes Father Heart Father Cancer Sister No Known Problems Brother No Known Problems Maternal Grandmother No Known Problems Maternal Grandfather Diabetes Paternal Grandmother No Known Problems Paternal Grandfather Review of Systems: Reviewed and completed per patient questionnaire, all others negative unless otherwise stated in the HPI. Const: Denies anorexia, fever, night sweats and weight change. Eyes: Denies abnormal vision, pain and visual disturbance. ENMT: Denies discharge from the ears, ear pain and tinnitus. Denies altered smell and soreness. Denies dysphagia and sore throat. CV: Denies chest pain, diaphoresis and syncope. Resp: Denies cough, orthopnea, PND, SOB and wheezing. GI: Denies abdominal pain, change in appetite, diarrhea, hematemesis, hematochezia and melena. Musculo: Denies musculoskeletal symptoms other than outlined above. Skin (more content not included)... Normal [facility] ABD AORTA COMPLETE VAS LA Bon 05-17-2024 ABD AORTA COMPLETE VAS LAB Non-Invasive Vascular Laboratory [facility] [facility] J35 Abdominal Aorta Bilateral/Complete Date of service/time: 05/17/2024 8:25:21 AM Name: TANISHA SALTER Date of : 1940 Age: 84 years Gender: M Clinical Indication Abdominal aortic aneurysm. TECHNIQUE -------- An aortic duplex ultrasound examination was performed, including grayscale imaging and color Doppler and spectral Doppler examination of abdominal aorta as well as the below mentioned arteries. FINDINGS -------- AORTA Proximal: PSV: 37 cm/s. EDV: 10 cm/s. 2.84 cm x 2.83 cm At renal: PSV: 64 cm/s. EDV: 13 cm/s. 2.27 cm x 2.30 cm Mid: PSV: 79 cm/s. EDV: 6 cm/s. 2.57 cm x 2.52 cm Distal: PSV: 129 cm/s. EDV: 0 cm/s. 1.84 cm x 1.90 cm Heterogeneous plaque in the abdominal aorta throughout. Homogeneous and heterogeneous plaque in the abdominal aorta at mid. Mural thrombus seen in the abdominal aorta at mid. RIGHT VESSELS Common iliac origin: PSV: 118 cm/s. EDV: 13 cm/s. 1.35 cm x 1.32 cm Common iliac proximal: PSV: 87 cm/s. EDV: 4 cm/s. 1.35 cm x 1.31 cm Common iliac mid: PSV: 63 cm/s. EDV: 6 cm/s. 1.58 cm x 1.57 cm Common iliac distal: PSV: 53 cm/s. EDV: 5 cm/s. 1.39 cm x 1.35 cm Internal iliac proximal: PSV: 36 cm/s. EDV: 3 cm/s. 0.80 cm x 0.77 cm Calcified and heterogeneous plaque in the common iliac artery throughout. LEFT VESSELS Common iliac origin: PSV: 112 cm/s. EDV: 0 cm/s. 1.18 cm x 1.18 cm Common iliac proximal: PSV: 80 cm/s. EDV: 0 cm/s. 1.23 cm x 1.24 cm Common iliac mid: PSV: 70 cm/s. EDV: 0 cm/s. 1.17 cm x 1.16 cm Common iliac distal: PSV: 128 cm/s. EDV: 0 cm/s. 1.26 cm x 1.24 cm Internal iliac proximal: PSV: 40 cm/s. EDV: 6 cm/s. 0.79 cm x 0.74 cm Calcified and shadowing plaque in the common iliac artery throughout. IMPRESSION AORTA Aorta appears ectatic measuring 2.57 x 2.52 at mid. RIGHT VESSELS Common iliac artery appears ectatic measuring 1.58 x 1.57 cm at mid. Internal iliac artery plaque noted without evidence of hemodynamically significant stenosis . LEFT VESSELS Common iliac artery patent without evidence of aneurysm throughout. Internal iliac artery plaque noted without evidence of hemodynamically significant stenosis at proximal. Technologist: Cristal Faustin RVT, [place] Ordering physician: DIANNA VALENCIA Interpreting physician: ADAMA Rodriguez MD Final CC [employer] [facility] Image : [id number] ISUID See Link below for Image Normal [facility] Abdominal Aortaon 024 Non-Invasive Vascular Laboratory [place] J35 Abdominal Aorta Bilateral/Complete Date of service/time: 05/17/2024 8:25:21 AM Name: TANISHA SALTER Date of : 1940 Age: 84 years Gender: M Clinical Indication Abdominal aortic aneurysm. TECHNIQUE -------- An aortic duplex ultrasound examination was performed, including grayscale imaging and color Doppler and spectral Doppler examination of abdominal aorta as well as the below mentioned arteries. FINDINGS -------- AORTA Proximal: PSV: 37 cm/s. EDV: 10 cm/s. 2.84 cm x 2.83 cm At renal: PSV: 64 cm/s. EDV: 13 cm/s. 2.27 cm x 2.30 cm Mid: PSV: 79 cm/s. EDV: 6 cm/s. 2.57 cm x 2.52 cm Distal: PSV: 129 cm/s. EDV: 0 cm/s. 1.84 cm x 1.90 cm Heterogeneous plaque in the abdominal aorta throughout. Homogeneous and heterogeneous plaque in the abdominal aorta at mid. Mural thrombus seen in the abdominal aorta at mid. RIGHT VESSELS Common iliac origin: PSV: 118 cm/s. EDV: 13 cm/s. 1.35 cm x 1.32 cm Common iliac proximal: PSV: 87 cm/s. EDV: 4 cm/s. 1.35 cm x 1.31 cm Common iliac mid: PSV: 63 cm/s. EDV: 6 cm/s. 1.58 cm x 1.57 cm Common iliac distal: PSV: 53 cm/s. EDV: 5 cm/s. 1.39 cm x 1.35 cm Internal iliac proximal: PSV: 36 cm/s. EDV: 3 cm/s. 0.80 cm x 0.77 cm Calcified and heterogeneous plaque in the common iliac artery throughout. LEFT VESSELS Common iliac origin: PSV: 112 cm/s. EDV: 0 cm/s. 1.18 cm x 1.18 cm Common iliac proximal: PSV: 80 cm/s. EDV: 0 cm/s. 1.23 cm x 1.24 cm Common iliac mid: PSV: 70 cm/s. EDV: 0 cm/s. 1.17 cm x 1.16 cm Common iliac distal: PSV: 128 cm/s. EDV: 0 cm/s. 1.26 cm x 1.24 cm Internal iliac proximal: PSV: 40 cm/s. EDV: 6 cm/s. 0.79 cm x 0.74 cm Calcified and shadowing plaque in the common iliac artery throughout. IMPRESSION AORTA Aorta appears ectatic measuring 2.57 x 2.52 at mid. RIGHT VESSELS Common iliac artery appears ectatic measuring 1.58 x 1.57 cm at mid. Internal iliac artery plaque noted without evidence of hemodynamically significant stenosis . LEFT VESSELS Common iliac artery patent without evidence of aneurysm throughout. Internal iliac artery plaque noted without evidence of hemodynamically significant stenosis at proximal. Technologist: Cristal Faustin RVT, [place] Ordering physician: DIANNA VALENCIA Interpreting physician: ADAMA Rodriguez MD Final See Link below for Image [facility] CNOVon 05-10-2024 CNOV Office Visit (REILLYWS ) TANISHA SALTER ([id number]) 1940 M Date Time Provider Department 05/10/24 8:00 AM YOLANDE WARNER During your visit today, we recorded the following information about you: Pulse Respiration Blood pressure Weight 71/minute 16/minute 102/62 84.2 kg Yolande Warner MD 05/10/2024 9:12 AM Signed Chief Complaint Patient presents with: Follow Up: 6 month HPI Tanisha Salter is a 84 year old male who presents here today [...] HgA1C was Hemoglobin A1C (%) Date Value 05/09/2024 6.3 11/05/2023 6.5 10/18/2021 6.3 04/17/2021 6.4 ) Last Ophthalmology exam was more than 12 months ago Last Podiatry exam was within the past 2 months Patient following up with Dr. Lam pain management for chronic lower back pain and lumbar spinal stenosis.Getting medial branch blocks with last completed 01/06. Not getting much pain relief with this. Discussed surgical options which he is not interested in. Using cane for ambulation, but has not been as active due to back pain. Denies falls. Not taking anything OTC for pain. Has not seen PT recently. 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 Lundberg. They restarted him on the Flomax and Proscar. Weak stream improved. F/u in July. Following up with oncology Dr. Haile at [facility] for history of prostate cancer s/p radiation. PSA in December was 0. Rechecking PSA every 6 months. Considering having us monitor his PSA. Patient has f/u with vascular next week for mural thrombus. Past medical history, appointments, medications, allergies reviewed. Previous Medical History PAST MEDICAL HISTORY 03/24/2023: Adrenal incidentaloma (HCC) No date: BPH (benign prostatic hyperplasia) No date: Diabetes mellitus, type 2 (HCC) 03/24/2023: Ectatic abdominal aorta (HCC) Comment: 2.7 infrarenal aorta, US in 1 year No date: Elevated prostate specific antigen (PSA) No date: Hyperlipidemia No date: Prostate cancer (HCC) Comment: Kenyatta Ji. s/p radiation No date: Spinal stenosis Comment: lumbar No date: Testicular cancer (HCC) Comment: radiation- Previous Surgical History PAST SURGICAL HISTORY 2012: COLONOSCOPY Comment: normal 08/2023: CYSTOSCOPY 1960s: HEMORRHOIDECTOMY 1983: ORCHIECTOMY SIMPLE; Left Comment: testicular cancer, with radiation No date: PAST SURGICAL HISTORY OF; Left Comment: knee arthroscopy 10/2023: PAST SURGICAL HISTORY OF Comment: Bladder Surgery 10/09/2023: PAST SURGICAL HISTORY OF Comment: Revised surgery on bladder neck Dr. Lundberg No date: TONSILLECTOMY HX Comment: childhood 06/25/2022: TRANSURETHRAL ELEC-SURG PROSTATECTOM Family History FAMILY HISTORY Problem Relation Age [...] Take 1 tablet by mouth once daily. tamsulosin (FLOMAX) 0.4 mg Take 0.4 mg by mouth once daily. finasteride (PROSCAR) 5 mg tablet Take 5 mg by mouth once daily. lisinopril (ZESTRIL) 5 mg tablet Take 1 tablet by mouth once daily. No current facility-administered medications on file prior to visit. Social History Social History Tobacco Use Smoking status: Former Current packs/day: 0.00 Average packs/day: 1.5 packs/day for 20.0 years (30.0 ttl pk-yrs) Types: Cigarettes Start date: 07/23/1970 Quit date: 07/23/1990 Years since quittin.8 Smokeless tobacco: Never Vaping Use Vaping status: Never Used Substance Use Topics Alcohol use: Yes Comment: rarely Drug use: No Review of Symptoms REVIEW OF SYSTEMS GENERAL: No weight loss, malaise or fevers RESPIRATORY: Negative for cough, hemoptysis, wheezing, COPD, dyspnea or shortness of breath CARDIOVASCULAR: Negative for chest (more content not included)... Normal [facility] Comprehensive metabolic 2000 panelon 05-09-2024 Albumin [Mass/Vol] 4.4 g/dL Normal 3.9-4.[address] [facility] Comment on above: Order Comment: Speci men Type: BLOOD SPECIMENOrdering Facility: [facility] Address: [address] [place] [address] Performed By: #### 2 4323-8 ####[facility] JUAN [facility] [id number] [place] [address] [place] ALP [Catalytic activity/Vol] 62 U/L Normal 38-113 [facility] Comment on above: Order Comment: Speci men Type: BLOOD SPECIMENOrdering Facility: [facility] Address: [address] [place] [address] Performed By: #### 2 4323-8 ####[facility] JUAN MILLTOWNCLIA [id number] [place] [address] [place] ALT [Catalytic activity/Vol] 10 U/L Normal 10-54 [facility] Comment on above: Order Comment: Speci men Type: BLOOD SPECIMENOrdering Facility: [facility] Address: [address] [place] [address] Performed By: #### 2 4323-8 ####[facility] JUAN MILLTOWNCLIA [id number] [place] [address] [place] Anion gap [Moles/Vol] 10 mmol/L Normal 8-15 [facility] Comment on above: Order Comment: Speci men Type: BLOOD SPECIMENOrdering Facility: [facility] Address: [address] [place] [address] Performed By: #### 2 4323-8 ####[facility] JUAN MILLTOWNCLIA [id number] [place] [address] [place] AST [Catalytic activity/Vol] 14 U/L Normal 14-40 [facility] Comment on above: Order Comment: Speci men Type: BLOOD SPECIMENOrdering Facility: [facility] Address: [address] [place] [address] Performed By: #### 2 4323-8 ####[facility] JUAN MILLTOWNCLIA [id number] [place] [address] [place] Bilirubin [Mass/Vol] 0.4 mg/dL Normal 0.2-1.3 [facility] Comment on above: Order Comment: Speci men Type: BLOOD SPECIMENOrdering Facility: [facility] Address: [address] [place] [address] Performed By: #### 2 4323-8 ####[facility] JUAN MILLTOWNCLIA [id number] [place] [address] [place] Calcium [Mass/Vol] 10.1 mg/dL Normal 8.5-10.[address] [facility] Comment on above: Order Comment: Speci men Type: BLOOD SPECIMENOrdering Facility: [facility] Address: [address] [place] [address] Performed By: #### 2 4323-8 ####[facility] MILLTOWNCLIA [id number] [place] [address] [place] Chloride [Moles/Vol] 100 mmol/L Normal 98-107 [facility] Comment on above: Order Comment: Speci men Type: BLOOD SPECIMENOrdering Facility: [facility] Address: [address] [place] [address] Performed By: #### 2 4323-8 ####[facility] SYSTEMSWNCLIA [id number] [place] [address] [place] CO2 [Moles/Vol] 26 mmol/L Normal 22-30 [facility] Comment on above: Order Comment: Speci men Type: BLOOD SPECIMENOrdering Facility: [facility] Address: [address] [place] [address] Performed By: #### 2 4323-8 ####[facility] MILLWNCLIA [id number] [place] [address] [place] Creatinine [Mass/Vol] 0.90 mg/dL Normal 0.73-1.22 [facility] Comment on above: Order Comment: Speci men Type: BLOOD SPECIMENOrdering Facility: [facility] Address: [address] [place] [address] Performed By: #### 2 4323-8 ####[facility] MILLWNCLIA [id number] [place] [address] [place] Creatinine and Glomerular filtration rate.predicted panel (S/P/Bld) 84 mL/min/1.73m??? Normal >=60 [facility] Comment on above: Order Comment: Jeanette shepherd Type: BLOOD SPECIMENOrdering Facility: [facility] Address: [address] [place] [address] Result Comment: Mary Ann mated Glomerular Filtration Rate (eGFR) is calculated using the 2020 CKD-EPI creatinine equation. This equation utilizes serum creatinine, sex, and age as parameters. The creatinine assay has traceable calibration to isotope dilution-mass spectrometry. Refer to KDIGO guidelines for clinical interpretation. In patients with unstable renal function, e.g. those with acute kidney injury, the eGFR may not accurately reflect actual GFR. Performed By: #### 2 4323-8 ####[facility] [id number] [place] [address] [place] Glucose [Mass/Vol] 114 mg/dL High 74-[address] [facility] Comment on above: Order Comment: Jeanette shepherd Type: BLOOD SPECIMENOrdering Facility: [facility] Address: [address] [place] [address] Result Comment: The [place] Diabetes Association (ADA) provides guidance for cutoff values for fasting glucose and random glucose. The ADA defines fasting as no caloric intake for at least 8 hours. Fasting plasma glucose results between 100 to 125 mg/dL indicate increased risk for diabetes (prediabetes). Fasting plasma glucose results greater than or equal to 126 mg/dL meet the criteria for diagnosis of diabetes. In the absence of unequivocal hyperglycemia, results should be confirmed by repeat testing. In a patient with classic symptoms of hyperglycemia or hyperglycemic crisis, random plasma glucose results greater than or equal to 200 mg/dL meet the criteria for diagnosis of diabetes. Reference: Standards of Medical Care in Diabetes 2016, [place] Diabetes Association. Diabetes Care. 2016.39(Suppl 1). Performed By: #### 2 4323-8 ####[facility] [id number] [place] [address] [place] Potassium [Moles/Vol] 4.7 mmol/L Normal 3.7-5.1 [facility] Comment on above: Order Comment: Speci men Type: BLOOD SPECIMENOrdering Facility: [facility] Address: [address] [place] [address] Performed By: #### 2 4323-8 ####[facility] JESSMAXWELLNCA [id number] [place] [address] [place] Protein [Mass/Vol] 6.9 g/dL Normal 6.3-8.[address] [facility] Comment on above: Order Comment: Speci men Type: BLOOD SPECIMENOrdering Facility: [facility] Address: [address] [place] [address] Performed By: #### 2 4323-8 ####[facility] [id number] [place] [address] [place] Sodium [Moles/Vol] 136 mmol/L Normal 136-[address] [facility] Comment on above: Order Comment: Speci men Type: BLOOD SPECIMENOrdering Facility: [facility] Address: [address] [place] [address] Performed By: #### 2 4323-8 ####[facility] [id number] [place] [address] [place] Urea nitrogen [Mass/Vol] 13 mg/dL Normal 9-24 [facility] Comment on above: Order Comment: Speci men Type: BLOOD SPECIMENOrdering Facility: [facility] Address: [address] [place] [address] Performed By: #### 2 4323-8 ####[facility] ERNCLIA [id number] [place] [address] [place] HbA1c (Bld)on 05-09-2024 Average glucose Estimated from glycated hemoglobin (Bld) [Mass/Vol] 134 mg/dL Normal [facility] Comment on above: Order Comment: Speci men Type: BLOOD SPECIMENOrdering Facility: [facility] Address: [address] [place] [address] Result Comment: eAG: (Estimated average glucose) is a calculated value from HgbA1c and is b2b outside sales representative of the average blood glucose level in the last 2-3 month period. Performed By: #### 5 5454-3 ####[facility] LABIA [id number] [address] [place] HbA1c (Bld) [Mass fraction] 6.3 % High 4.3-5.6 [facility] Comment on above: Order Comment: Speci men Type: BLOOD SPECIMENOrdering Facility: [facility] Address: [address] [place] [address] Result Comment: Amer [place] Diabetes Association guidelines indicate that patients with HgbA1c in the range 5.7-6.4% are at increased risk for development of diabetes, and intervention by lifestyle modification may be beneficial. HgbA1c greater or equal to 6.5% is considered diagnostic of diabetes. Performed By: #### 5 5454-3 ####[facility] LABIA [id number] [address] [place] Lipid 1996 panelon 4 Cholesterol [Mass/Vol] 137 mg/dL Normal <200 [facility] Comment on above: Order Comment: Jeanette men Type: BLOOD SPECIMENOrdering Facility: [facility] Address: [address] [place] [address] Result Comment: <200 mg/dL, Desirable 200-239 mg/dL, Borderline high >239 mg/dL, High Performed By: #### 2 4331-1 ####[facility] LABIA [id number] [address] STATES OF [facility] [id number] [place] [address] [place] Cholesterol in HDL [Mass/Vol] 40 mg/dL Normal >39 [facility] Comment on above: Order Comment: Vianeyi men Type: BLOOD SPECIMENOrdering Facility: [facility] Address: [address] [place] [address] Result Comment: 40-5 9 mg/dL, Acceptable >59 mg/dL, High: Negative risk factor for coronary heart disease <40 mg/dL, Low: Positive risk factor for coronary heart disease Performed By: #### 2 4331-1 ####[facility] LABCLIA [id number] [address] [id number] [address] [place] Cholesterol in LDL [Mass/Vol] 69 mg/dL Normal <100 [facility] Comment on above: Order Comment: Vianeyi men Type: BLOOD SPECIMENOrdering Facility: [facility] Address: [address] [place] [address] Result Comment: <100 mg/dL, Optimal 100-129 mg/dL, Near optimal/above optimal 130-159 mg/dL, Borderline high 160-189 mg/dL, High >189 mg/dL, Very high Secondary prevention optimal LDL Cholesterol levels are recommended to be < 70 mg/dL Performed By: #### 2 4331-1 ####[facility] LABCLIA [id number] [address] [id number] [place] [address] [place] Cholesterol in LDL/Cholesterol in HDL [Mass ratio] 1.73 {ratio} Normal <2.54 [facility] Comment on above: Order Comment: Jeanette men Type: BLOOD SPECIMENOrdering Facility: [facility] Address: [address] [place] [address] Result Comment: Refe rence: 1. National Cholesterol Education Program ATP III Guideline At-A-Glance Quick Desk Reference: National Heart, Lung, and Blood [place]. National Institutes of Health. 2001: NIH Publication No. 01-3305. 2. An International Atherosclerosis Society position paper: global recommendations for the management of dyslipidemia: executive summary, Atherosclerosis. 2014: 232(2):410-413. Performed By: #### 2 4331-1 ####[facility] LABCLIA [id number] [place] [id number] [facility] [id number] [place] [address] [place] Cholesterol in VLDL [Mass/Vol] 28 mg/dL Normal <30 [facility] Comment on above: Order Comment: Speci men Type: BLOOD SPECIMENOrdering Facility: [facility] Address: [address] [place] [address] Performed By: #### 2 4331-1 ####[facility] LABCLIA [id number] [address] [id number] [place] [address] [place] Cholesterol non HDL [Mass/Vol] 97 mg/dL Normal <130 [facility] Comment on above: Order Comment: Speci men Type: BLOOD SPECIMENOrdering Facility: [facility] Address: [address] [place] [address] Result Comment: <130 mg/dL, Optimal 130-159 mg/dL, Near optimal/above optimal 160-189 mg/dL, Borderline high 190-219 mg/dL, High >219 mg/dL, Very high Secondary prevention optimal non HDL Cholesterol levels are recommended to be <100 mg/dL Performed By: #### 2 4331-1 ####[facility] LABCLIA [id number] [address] [id number] [place] [address] [place] Cholesterol.total/Choles terol in HDL [Mass ratio] 3.43 {ratio} Normal <5.10 [facility] Comment on above: Order Comment: Speci men Type: BLOOD SPECIMENOrdering Facility: [facility] Address: [address] [place] [address] Performed By: #### 2 4331-1 ####[facility] LABCLIA [id number] [address] [id number] [place] [address] [place] FASTING TIME 12 hrs Normal [facility] Comment on above: Order Comment: Speci men Type: BLOOD SPECIMENOrdering Facility: [facility] Address: [address] [place] [address] Performed By: #### 2 4331-1 ####[facility] LABCLIA [id number] [address] [id number] [place] [address] [place] Triglyceride [Mass/Vol] 142 mg/dL Normal <150 [facility] Comment on above: Order Comment: Speci men Type: BLOOD SPECIMENOrdering Facility: [facility] Address: [address] [place] [address] Result Comment: <150 mg/dL, Normal 150-199 mg/dL, Borderline high 200-499 mg/dL, High >499 mg/dL, Very high Performed By: #### 2 4331-1 ####[facility] LABCLIA [id number] [address] [id number] [place] [address] [place] CNOVon 03-24-2024 CNOV Office Visit (PODIWS ) TANISHA SALTER ([id number]) 1940 M Date Time Provider Department 03/24/24 8:00 AM LUCINDA KOHLER During your visit today, we recorded the following information about you: Lucinda Kohler 03/24/2024 8:17 AM Signed Last saw pcp: 11/06/23 Subjective: Patient presents to clinic c/o painful toenails. They state that the nails are especially painful with shoe gear and pressure. Patient states that nails 1-5 b/l are painful. Is using penlac to the toes. Patient admits to being diabetic. No other pedal complaints at this time. Patient states no change in medications or medical history since last visit. Objective: Patient presents to clinic ambulating in [place] Vasc: DP and PT pulses are palpable [...] and thickness. Small bleed to left 3rd toe and right 4th toe. Alcohol applied. Band aide declined. He is using penlac. Continue. Other options discussed include lamisil vs removal. Patient was instructed on the continued importance of diabetic foot care along with proper diet and keeping their blood sugar under control to prevent complications. Stressed the importance of avoiding barefoot walking. Patient is to RTC in 2 months Lucinda Kohler DPM Lucinda Kohler 03/24/2024 8:07 AM Signed Diabetes Foot Care Instructions When you have [...] (or decreased sensation in your feet) a energy director should always cut your toenails. Be Careful [...] your shoes are too tight. Perform the bernard (more content not included)... [facility] (FAMPWS) TANISHA SALTER ([id number]) 1940 M Date Time Provider Department 03/08/24 [facility] your visit today, we recorded the following information about you: Yolande Warner MD 03/08/2024 9:00 AM Signed US negative abdominal aortic aneurysm. His abdominal aorta is still mildly dilated at 2.4 cm which is similar to CT scan from last year. Noted plaque buildup around the aorta and he has blood clot built up around the aorta. Would recommend referral to vascular for further evaluation of this. If agreeable, will place referral order. La Pedro RN 03/08/2024 10:22 AM Signed Pt called and is notified of providers results and instructions. Pt voices understanding. Pt is ok with consult. Please call to schedule on order is in. FRANCISCO Thornton Christopher B, MD 03/08/2024 10:56 AM Signed Referral order placed. Erika Hernandez LPN 03/10/2024 11:15 AM Signed Patient stopped into office 03/10/24 and asked about referral who PCP recommended. Advised patient no one local within [facility] in Vascular Med. Informed patient he would likely need to travel outside of [place] to see someone. He voiced understanding and directed him to go to [facility] and they will assist with scheduling and could give him names of providers. He voiced understanding. 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 - lisinopril (ZESTRIL) 5 mg tablet Take 1 tablet by mouth once daily. - metFORMIN (GLUCOPHAGE) 1,000 mg tablet Take 0.5 tablets by mouth once daily. - tamsulosin (FLOMAX) 0.4 mg Take 0.4 mg by mouth once daily. - finasteride (PROSCAR) 5 mg tablet Take 5 mg by mouth once daily. Problem List As Of Date 03/08/2024 Noted Resolved Diabetes mellitus, type 2 (HCC) [E11.9] Hyperlipidemia [E78.5] BPH (benign prostatic hyperplasia) [N40.0] Testicular cancer (HCC) [C62.90] 08/17/2018 Diabetic polyneuropathy associated with type 2 *08/17/2018 Neck stiffness [M43.6] 10/10/2019 Chronic low back pain without sciatica [M54.50,*10/21/2021 Acute back pain with sciatica, right [M54.41] 10/22/2021 06/04/2022 Prostate cancer (HCC) [C61] 04/23/2022 Spinal stenosis, lumbar region, without neuroge*04/01/2023 Lumbar radiculopathy [M54.16] 04/01/2023 Elevated prostate specific antigen (PSA) [R97.2*05/08/2023 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 Aortic ectasia prior CT scans TECHNIQUE: Sonography of the abdominal aorta was performed. Images were obtained and stored in a permanent archive. MQ: [id number] COMPARISON: CT scans of 03/13/2023 RESULT: AORTA (AP x TV): Proximal: Not seen due to overlying bowel gas Mid (level of renal arteries): 2.4 cm x 2.1 cm Distal: 1.8 cm x 1.9 cm Common Iliac Arteries (AP x TV): Right: 1.3 cm x 1.4 cm Left: 1.4 cm x 1.3 cm Atherosclerotic plaque: present Peripheral mural thrombus in the mid aorta. Similar to previous IMPRESSION: NEGATIVE STUDY FOR ABDOMINAL AORTIC ANEURYSM. Ectasia of the mid abdominal aorta with atheromatous plaque and mural thrombus. Grossly stable allowing for difference in imaging technique Driver'S License Reviewing Officer: KELLEY Transcribe Date/Time: Mar 08 2024 7:27A Dictated by : DILAN BURGESS MD This examination was interpreted and the report reviewed and electronically signed by: DILAN BURGESS MD on Mar 08 2024 7:30AM EST [id number] Normal [facility] CNPAlba 01-26-2024 CNPN Telephone (AGSPINE3) TANISHA SALTER ([id number]) 1940 M Date Time Provider Department 01/26/24 BULL LAM AGSPINE3 During your visit today, we recorded the following information about you: JoseJude 01/26/2024 12:13 PM Signed Call received from patient to cancel procedure scheduled for January 28 and follow up due to family emergency. Patient will call back to reschedule Jude Garcia Forestry Farm Laborer to Dr. Bull Lam MD / Cristal Caballero CNP RIGGER THIRD [facility] [place] [address] [place] [address] Phone. [phone] / Fax. [phone] Allergies As of Date: 01/26/2024 Noted Allergy Reaction DEMEROL (MEPERIDINE) 12/26/2017 11 - Vomiting SULFA (SULFONAMIDE ANTIBIOTICS) 12/26/2017 16 - Unknown Comments: Elevated temperature TETANUS TOXOID 12/26/2017 4 - Hives Date Reviewed: 01/22/2024 Reviewed by: La Forrester, RN - Fully Assessed Reason for Visit: Patient Update [1234] Appointment [186] Prescriptions as of 01/26/2024 - Ciclopirox (LOPROX) 8 % solution Apply to affected area daily at bedtime. - pravastatin (PRAVACHOL) 20 mg tablet Take 1 tablet by mouth once daily. - lisinopril (ZESTRIL) 5 mg tablet Take 1 tablet by mouth once daily. - metFORMIN (GLUCOPHAGE) 1,000 mg tablet Take 0.5 tablets by mouth once daily. - tamsulosin (FLOMAX) 0.4 mg Take 0.4 mg by mouth once daily. - finasteride (PROSCAR) 5 mg tablet Take 5 mg by mouth once daily. Problem List As Of Date 01/26/2024 Noted Resolved Diabetes mellitus, type 2 (HCC) [E11.9] Hyperlipidemia [E78.5] BPH (benign prostatic hyperplasia) [N40.0] Testicular cancer (HCC) [C62.90] 08/17/2018 Diabetic polyneuropathy associated with type 2 *08/17/2018 Neck stiffness [M43.6] 10/10/2019 Chronic low back pain without sciatica [M54.50,*10/21/2021 Acute back pain with sciatica, right [M54.41] 10/22/2021 06/04/2022 Prostate cancer (HCC) [C61] 04/23/2022 Spinal stenosis, lumbar region, without neuroge*04/01/2023 Lumbar radiculopathy [M54.16] 04/01/2023 Elevated prostate specific antigen (PSA) [R97.2*05/08/2023 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] 03/24/2023 Lumbar spondylosis [M47.816] 07/01/2023 Encounter Status:Closed by JUDE GARCIA on 01/26/24 [facility] CNCOon 01-07-2024 CNCO Letter Text [facility] CNOVon 01-07-2024 CNOV Office Visit (SPAGWO ) TANISHA SALTER ([id number]) 1940 M Date Time Provider Department 01/07/24 8:00 AM BULL LAM During your visit today, we recorded the following information about you: Pulse Respiration 73/minute 16/minute Bull Lam MD 01/07/2024 8:32 AM Signed [facility] Today's Date: 01/05/2024 Name: Tanisha Salter : 1940 Purpose: Follow-up Patient Evaluation - This is an established patient, returning today for continued evaluation and management of the chief complaint noted below Chief complaint: low back pain Pertinent Past Medical History: Diabetic polyneuropathy, DM type 2, HLD, Prostate CA, Chronic LBP, BPH Pertinent Past Surgeries: (Left) knee arthroscopy, Orchiectomy simple (Left) Plan at last visit: Medications: No Changes - Continue Current Medications Interventional Procedures:Patient is scheduled for the second in a series of 2 medial branch nerve blocks. Medial Branch Block (Diagnostic only, NO STEROIDS) under fluoroscopic guidance BILATERAL SIDES at L2-3 and L3-4 Follow-up: 1-5 days with Physician or CJ Virtual Visit Depending on response to the above plan, consider: ADRIANO at L1 Interval History: Overall pain and functional disability since last visit: Unchanged New Complaints since last visit: No He returns reporting that he continues to have low back pain, radiating into the right > left flank. When he stands and walks, the pain radiates into the anterior thighs bilaterally, occasionally into the medial calves. He has pain within 5 minutes of standing. He has relief almost immediately after sitting. He reports that his legs gave out on him when he was ascending stairs and fell. He has fallen twice recently. He uses a quad cane for support, which has helped with his balance. He is not currently taking any medications for pain. Diclofenac did not help. Block: 2 of 2 Date: 12/30/2023 Pain response post procedure: 12/08 Pain response pre procedure: 7/10 % overall improvement: <50%% Duration of improvement: 30 minutes (Agent utilized: Bupivacaine 0.75%) Functional Metric Post-Injection (Oswestry Questionnaire at 2 hours post-injection): 26 Baseline (Pre-Injection) Score: 32 % overall functional improvement: <50%% Positive Diagnostic Response? No Baseline ELDER: Pain Intensity 4 - The [...] Interpretation 41% - 60% - severe disability Post-Injection ELDER (11/04/2023): Post-injection ELDER (12/30/2023): Pain Intensity 4 Personal Care (Washing/Dressing) 2 Lifting 4 Walking 3 Sitting 0 Standing 4 Sleeping 0 Sex Life 4 Social Life 3 Traveling 2 Total Score 26 Interpretation 21% - 40% - moderate disability Current Pain Medications: Neuropathics: NSAIDS: Muscle Relaxants: Topicals: Other Prescription or OTC Pain Medications: Opioids (when applicable): Anti-depressants or Mood-Stabilizers: None Anti-Coagulants: None Therapies Attended (Current or Most Recent): No Current Therapies 01/22/2023 AG SPINE COMBINATION Questionnaire GREENLIGHT Completed Date 01/22/2023 Questionnaire Opiod Risk Tool Completed Date 01/22/2023 Comments 0 No question data found. (All drug screens are appropriate unless indicated otherwise) Notable Events During Course of Treatment: 01/13/2023 - Initial HPI (Obtained by Bull Lam M.D.). Referred by Yolande Warner MD, for evaluation [...] he was told he has peripheral neuropathy Treatment History: PAIN PROCEDURES: DATE PROCEDURE IMPROVEMENT 12/30/2023 MBDarby L2-3, (more content not included)... Normal [facility] CNPAlba 01-07-2024 CNPN Telephone (SPAGWO) TANISHA SALTER ([id number]) 1940 M Date Time Provider Department 01/07/24 BULL LAM SPAGWMagali During your visit today, we recorded the following information about you: June Moreno 01/07/2024 8:37 AM Signed Procedure(s) being scheduled: TFESI 1.Are you diabetic Yes. Please list the current medications being prescribed metformin. 2. Are you on any blood thinners? No 3. Are you taking any aspirin? No 4. Are you currently taking any antibiotics? No 5. Do you have any allergies to latex? No 6. Do you have any allergies to seafood or shellfish? No 7. Do you have any allergies to x-ray dye? No 8. Did the physician instruct you to take any medication prior to your procedure? No 9. Does this procedure require a sulky driver? Yes If yes, has patient been notified that a sulky driver is needed and must be present at check in? yes 10. Were the pre-procedure instructions explained and provided to the patient? Yes 11. Do you have a pacemaker? No 12. Do you have an internal stimulator of any kind? No 13. Have you received the COVID-19 Vaccine? No. (Patient should not receive a procedure including steroids 14 days prior to their first dose of the COVID vaccine. They should not receive any procedure containing steroids in the time frame between their 1st and 2nd doses of the COVID vaccine. They should not receive a procedure containing steroids 14 days after their 2nd dose of the COVID vaccine.) June Moreno Allergies As of Date: 01/07/2024 Noted Allergy Reaction DEMEROL (MEPERIDINE) 12/26/2017 11 - Vomiting SULFA (SULFONAMIDE ANTIBIOTICS) 12/26/2017 16 - Unknown Comments: Elevated temperature TETANUS TOXOID 12/26/2017 4 - Hives Date Reviewed: 01/07/2024 Reviewed by: Erika Mason MA - Fully Assessed Reason for Visit: Injections [199] Prescriptions as of 01/07/2024 - pravastatin (PRAVACHOL) 20 mg tablet Take 1 tablet by mouth once daily. - lisinopril (ZESTRIL) 5 mg tablet Take 1 tablet by mouth once daily. - metFORMIN (GLUCOPHAGE) 1,000 mg tablet Take 0.5 tablets by mouth once daily. - tamsulosin (FLOMAX) 0.4 mg Take 0.4 mg by mouth once daily. - finasteride (PROSCAR) 5 mg tablet Take 5 mg by mouth once daily. Problem List As Of Date 01/07/2024 Noted Resolved Diabetes mellitus, type 2 (HCC) [E11.9] Hyperlipidemia [E78.5] BPH (benign prostatic hyperplasia) [N40.0] Testicular cancer (HCC) [C62.90] 08/17/2018 Diabetic polyneuropathy associated with type 2 *08/17/2018 Neck stiffness [M43.6] 10/10/2019 Chronic low back pain without sciatica [M54.50,*10/21/2021 Acute back pain with sciatica, right [M54.41] 10/22/2021 06/04/2022 Prostate cancer (HCC) [C61] 04/23/2022 Spinal stenosis, lumbar region, without neuroge*04/01/2023 Lumbar radiculopathy [M54.16] 04/01/2023 Elevated prostate specific antigen (PSA) [R97.2*05/08/2023 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 June Moreno Allergies As of Date: 01/07/2024 Noted Allergy Reaction DEMEROL (MEPERIDINE) 12/26/2017 11 - Vomiting SULFA (SULFONAMIDE ANTIBIOTICS) 12/26/2017 16 - Unknown Comments: Elevated temperature TETANUS TOXOID 12/26/2017 4 - Hives Date Reviewed: 01/07/2024 Reviewed by: Erika Mason MA - Fully Assessed Reason for Visit: Patient Update [1234] Prescriptions as of 01/07/2024 - pravastatin (PRAVACHOL) 20 mg tablet Take 1 tablet by mouth once daily. - lisinopril (ZESTRIL) 5 mg tablet Take 1 tablet by mouth once daily. - metFORMIN (GLUCOPHAGE) 1,000 mg tablet Take 0.5 tablets by mouth once daily. - tamsulosin (FLOMAX) 0.4 mg Take 0.4 mg by mouth once daily. - finasteride (PROSCAR) 5 mg tablet Take 5 mg by mouth once daily. Problem List As Of Date 01/07/2024 Noted Resolved Diabetes mellitus, type 2 (HCC) [E11.9] Hyperlipidemia [E78.5] BPH (benign prostatic hyperplasia) [N40.0] Testicular cancer (HCC) [C62.90] 08/17/2018 Diabetic polyneuropathy associated with type 2 *08/17/2018 Neck stiffness [M43.6] 10/10/2019 Chronic low back pain without sciatica [M54.50,*10/21/2021 Acute back pain with sciatica, right [M54.41] 10/22/2021 06/04/2022 Prostate cancer (HCC) [C61] 04/23/2022 Spinal stenosis, lumbar region, without neuroge*04/01/2023 Lumbar radiculopathy [M54.16] 04/01/2023 Elevated prostate specific antigen (PSA) [R97.2*05/08/2023 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] 03/24/2023 Lumbar spondylosis [M47.816] 07/01/2023 Encounter Status:Closed by JUNE MORENO on 01/07/24 Normal [facility] HISTORY PHYSICALon HISTORY PHYSICAL HNO ID: [id number] Author: BULL LAM MD Service: Pain Management Author Type: Physician Type: H&P Filed: 12/30/2023 09:56 Note Text: LOCAL PROCEDURE HISTORY AND PHYSICAL EXAM SERVICE DATE: 12/30/2023 SERVICE TIME: 9:56 AM Provisional Diagnosis/Treatment Plan: Medial branch blocks, bilateral L2-3,3-4, to diagnose facet-mediated axial low back pain Subjective Prior to Admission medications as of 12/30/23 0956 Medication Sig Last Dose Taking pravastatin (PRAVACHOL) 20 mg tablet Take 1 tablet by mouth once daily. 12/29/2023 Yes lisinopril (ZESTRIL) 5 mg tablet Take 1 tablet by mouth once daily. 12/29/2023 Yes metFORMIN (GLUCOPHAGE) 1,000 mg tablet Take 0.5 tablets by mouth once daily. 12/29/2023 Yes tamsulosin (FLOMAX) 0.4 mg Take 0.4 mg by mouth once daily. 12/29/2023 Yes finasteride (PROSCAR) 5 mg tablet Take 5 mg by mouth once daily. 12/29/2023 Yes ALLERGIES Allergen Reactions Demerol [Meperidine] Vomiting Sulfa (Sulfonamide * Unknown Elevated temperature Tetanus Toxoid Hives Objective PHYSICAL EXAM: The remainder of the physical exam is noncontributory. GENERAL: Alert, no distress, cooperative LUNGS: Lungs clear to auscultation, Good diaphragmatic excursion CARDIAC: Normal S1 and S2; no rubs, murmurs, or gallops NEURO: Gait normal. Reflexes normal and symmetric. Sensation grossly intact BP 135/69 Pulse 69 Temp (!) 35.9 ?C (96.6 ?F) (Temporal) Resp 18 Ht 188 cm (6' 2) Wt 87.5 kg (193 lb) SpO2 100% BMI 24.78 kg/m? PAIN ASSESSMENT: PAIN EVALUATION 12/30/2023 0918 Pain Level: 0 while sitting Assessment/Plan Assessment/Plan Medial branch blocks, bilateral L2-3,3-4, to diagnose facet-mediated axial low back pain Medication and Non-Pharmacologic VTE Prophylaxis/Anticoagu lants VTE Prophylaxis: VTE prophylaxis appropriate SIGNATURE: Bull Lam MD PATIENT NAME: Tanisha Salter Date: 12/30/2023 Time: 9:56 AM Normal [facility] OPERATIVE NOon 12-30-2023 OPERATIVE NO HNO ID: [id number] Author: BULL LAM MD Service: Pain Management Author Type: Physician Type: Operative Report Filed: 12/30/2023 10:23 Note Text: OPERATIVE/PROCEDURE REPORT LOG ID: [id number] SURGERY/PROCEDURE DATE: 12/30/2023 INCISION/PROCEDURE START TIME: 10:11 AM INCISION CLOSE/PROCEDURE END TIME: 10:21 AM SURGEON(S)/PROCEDURAL IST(S) AND BUSINESS MAIL ENTRY CLERK(S): Surgeon(s) and Role: * Bull Lam MD - Primary No Additional Staff SURGERY/PROCEDURE(S): Medial branch blocks, bilateral L2-3,3-4 ANESTHESIA: Local Injectate: A total of 3cc, consisting of 3cc of 0.75% Bupivacaine An additional 2cc of 1% Lidocaine was used for local anesthesia of the soft tissue and at the targeted location. SURGERY/PROCEDURE DETAILS: Procedure: The patient was prepped and draped in a sterile fashion in the prone position after informed consent was signed and all patient questions were answered including the risks, benefits, alternative treatment options, and prognosis. The risks are as mentioned above, with the exception of Pneumothorax. To block the L5 dorsal rami (when applicable), a spinal needle of the same dimensions as mentioned below was positioned at the junction of the superior articular process of the sacrum and the ala under biplanar fluoroscopic control. A 22 gauge, 5 inch spinal needle was inserted a few centimeters lateral to the pedicles of the remaining lumbar levels mentioned above and advanced ventral and medial through the muscles to the target point. Once the needle contacted periosteum at the superior-most medial edge of the transverse process, the C-arm was obliqued such that the axis of the lumbar facet joints could be fluoroscopically visualized, and the correct position of the needle confirmed. After contact with periosteum and negative aspirate for blood and CSF, correct placement without intravascular or epidural spread was confirmed by injecting 0.2cc of Omnipaque 300. A spot radiograph was obtained of this image. Next, a 0.5cc volume of the injectate noted above was placed. A needle was similarly directed to the other facet joint nerves mentioned above, with completion of the procedure at each level as described above. PRE-OP/PRE-PROCEDURE DIAGNOSIS: lumbar spondylosis POST-OP/POST-PROCEDUR E DIAGNOSIS: Same as Preop ESTIMATED BLOOD LOSS: 0 ml SPECIMENS: None IMPLANTABLE DEVICES: NONE DRAINS: None COMPLICATIONS: None CLOSURE TECHNIQUE: Primary PARTICIPATION IN SURGERY/PROCEDURE: I/primary surgeon/proceduralist performed the entire procedure. SIGNATURE: Bull Lam MD PATIENT NAME: Tanisha Salter DATE: 12/30/2023 TIME: 10:23 AM Normal [facility] NURSING PROGon 12-16-2023 NURSING PROG HNO ID: [id number] Author: ABDULKADIR MARTIN RN Service: Nursing Author Type: Registered Nurse Type: Nursing Progress Note Filed: 12/16/2023 14:42 Note Text: Pre-Procedure Checklist Tanisha Salter [phone] (home) 1940 83 year old Body mass index is 24.78 kg/m?. Allergies: Demerol [Meperidine] Vomiting Sulfa (Sulfonamide * Unknown Comment:Elevated temperature Tetanus Toxoid Hives Procedure: Lumbar facet block Date of Procedure: 12/30/23 Smoke: No Alcohol: No Street Drugs: No Diabetic: Yes Insulin: No Problems with Anesthesia (Self or Family?) No Construction Ironworker: none Saw intelligence research specialist in the last 6 months? No Recent EKG/Cardiac Testing: No Chest pain in the last 6 months (<6 months cardiac clearance needed): No History of: Heart Attack/Stroke/Blood Clot?: none Shortness of Breath: No Asthma: No Inhalers: No Any Outstanding Consults?: No If yes, list: none Additional Notes: Normal [facility] CBC W Auto Differential pane l (Bld)on 11-05-2023 Basophils (Bld) [#/Vol] 0.04 10*3/uL <0.11 k/uL [facility] Basophils/100 WBC (Bld) 0.9 % C [facility] Differential cell count method Nom (Bld) Auto [facility] Eosinophils (Bld) [#/Vol] 0.11 10*3/uL <0.46 k/uL [facility] Eosinophils/100 WBC (Bld) 2.5 % [facility] Erythrocyte distribution width (RBC) [Ratio] 13.4 % 11.5 - 15.0 % [facility] Hematocrit (Bld) [Volume fraction] 39.1 % 39.0 - 51.0 % [facility] Hemoglobin (Bld) [Mass/Vol] 13.2 g/dL 13.0 - 17.0 g/dL [facility] Immature granulocytes (Bld) [#/Vol] <0.10 k/uL [facility] Immature granulocytes/100 WBC (Bld) 0.2 % [facility] Lymphocytes (Bld) [#/Vol] 0.92 10*3/uL Low 1.00 - 4.00 k/uL [facility] Lymphocytes/100 WBC (Bld) 20.6 % [facility] MCH (RBC) [Entitic mass] 30.9 pg 26. 0 - 34.0 pg [facility] MCHC (RBC) [Mass/Vol] 33.8 g/dL 30.5 - 36.0 g/dL [facility] MCV (RBC) [Entitic vol] 91.6 fL 80.0 - 100.0 fL [facility] Monocytes (Bld) [#/Vol] 0.36 10*3/uL <0.87 k/uL [facility] Monocytes/100 WBC (Bld) 8.1 % C [facility] Neutrophils (Bld) [#/Vol] 3.03 10*3/uL 1.45 - 7.50 k/uL [facility] Neutrophils/100 WBC (Bld) 67.7 % [facility] Nucleated RBC (Bld) [#/Vol] <0.01 k/uL [facility] Nucleated RBC/100 WBC (Bld) [Ratio] 0.0 /100 WBC [facility] Platelet mean volume (Bld) [Entitic vol] 9.7 fL 9.0 - 12.7 fL [facility] Platelets (Bld) [#/Vol] 224 10*3/uL 150 - 400 k/uL [facility] RBC (Bld) [#/Vol] 4.27 10*6/uL 4.20 - 6.0 0 m/uL [facility] WBC (Bld) [#/Vol] 4.47 10*3/uL 3.70 - 11. 00 k/uL [facility] .Auto Diffon 10-08-2023 Basophil, Absolute 0.0 10 3/mcL Normal 0.0-0.2 [facility] ([place]) Comment on above: Performed By: #### A DIFF, ANEU, CBC #### [address] [address] Basophils/100 WBC (Bld) 0.8 % Normal 0.0-2.5 A [facility] ([place]) Comment on above: Performed By: #### A DIFF, ANEU, CBC #### [address] [address] Eosinophil, Absolute 0.1 10 3/mcL Normal 0.0-0.4 [facility] ([place]) Comment on above: Performed By: #### A DIFF, ANEU, CBC #### [address] [address] Eosinophils/100 WBC (Bld) 1.1 % Normal 0.0-7.0 Counts Include [address] [facility] ([place]) Comment on above: Performed By: #### A DIFF, ANEU, CBC #### [address] [address] Lymphocyte, Absolute 0.9 10 3/mcL Normal 0.8-3.9 [facility] ([place]) Comment on above: Performed By: #### A DIFF, ANEU, CBC #### [address] [address] Lymphocytes/100 WBC (Bld) 17.3 % Normal 10.0-50.0 Counts Include [address] [facility] ([place]) Comment on above: Performed By: #### A DIFF, ANEU, CBC #### [address] [address] Monocyte, Absolute 0.5 10 3/mcL Normal 0.2-1.0 [facility] ([place]) Comment on above: Performed By: #### A DIFF, ANEU, CBC #### [place] [address] [place], [place] [address] Monocytes/100 WBC (Bld) 8.7 % Normal 1.7-13.0 A [facility] ([place]) Comment on above: Performed By: #### A DIFF, ANEU, CBC #### [address] [address] Neutrophils/100 WBC (Bld) 72.1 % Normal 37.0-80.0 Counts Include [address] ([place]) Comment on above: Performed By: #### A DIFF, ANEU, CBC #### [address] [address] .GFRon 10-08-2023 GFR Non- 71 ml/min/1.73sqm Normal Counts Include [address] ([place]) Comment on above: Result Comment: GFR Population mean for , Non- Americans Ages 20-29 = 116 mL/min/1.73 sq.m. Ages 30-39 = 107 mL/min/1.73 sq.m. Ages 40-49 = 99 mL/min/1.73 sq.m. Ages 50-59 = 93 mL/min/1.73 sq.m. Ages 60-69 = 85 mL/min/1.73 sq.m. Ages 70+ = 75 mL/min/1.73 sq.m. Chronic Kidney Disease: Less than 60 mL/min/1.73 square meters End Stage Renal Disease: Less than 15 mL/min/1.73 square meters Performed By: #### B MP, GFR #### [address] [address] GFR 86 ml/min/1.73sqm Normal Counts Include [address] [facility] At [facility] ([place]) Comment on above: Result Comment: GFR Population mean for , Non- Americans Ages 20-29 = 116 mL/min/1.73 sq.m. Ages 30-39 = 107 mL/min/1.73 sq.m. Ages 40-49 = 99 mL/min/1.73 sq.m. Ages 50-59 = 93 mL/min/1.73 sq.m. Ages 60-69 = 85 mL/min/1.73 sq.m. Ages 70+ = 75 mL/min/1.73 sq.m. Chronic Kidney Disease: Less than 60 mL/min/1.73 square meters End Stage Renal Disease: Less than 15 mL/min/1.73 square meters Performed By: #### B MP, GFR #### [address] [address] .NEUABSon 10-08-2023 Neutrophil, Absolute 3.8 10 3/mcL Normal 2.9-6.2 [facility], later [facility] ([place]) Comment on above: Performed By: #### A DIFF, ANEU, CBC #### [address] [address] BMPon 10-08-2023 BUN/Creatinine Ratio 14 ratio Normal 7-27 [facility] ([place]) Comment on above: Performed By: #### B MP, GFR #### [address] [address] Calcium [Mass/Vol] 9.4 mg/dL Normal 8.4-10.2 [facility] ([place]) Comment on above: Performed By: #### B MP, GFR #### [address] [address] Chloride [Moles/Vol] 100 mmol/L Normal 98-107 [facility] ([place] Comment on above: Performed By: #### B MP, GFR #### [address] [address] CO2 [Moles/Vol] 28 mmol/L Normal 23-31 Counts Include 234 [address] At [facility] ([place] Comment on above: Performed By: #### B MP, GFR #### [address] [address] Creatinine [Mass/Vol] 1.00 mg/dL Normal 0.70-1.30 [facility] ([place]) Comment on above: Performed By: #### B MP, GFR #### [address] [address] Electrolyte Balance 11.0 mEq/L Normal 4.0-15.0 [facility] ([place]) Comment on above: Performed By: #### B MP, GFR #### [address] [address] Glucose [Mass/Vol] 98 mg/dL Normal 83-110 [facility] ([place] Comment on above: Performed By: #### B MP, GFR #### [address] [address] Potassium [Moles/Vol] 4.1 mmol/L Normal 3.5-5.1 [facility] ([place]) Comment on above: Performed By: #### B MP, GFR #### [address] [address] Sodium [Moles/Vol] 139 mmol/L Normal 136-145 [facility] ([place] Comment on above: Performed By: #### B MP, GFR #### [address] [address] Urea nitrogen [Mass/Vol] 14 mg/dL Normal 7-18 Counts Include 234 [facility] At [facility] ([place] Comment on above: Performed By: #### B MP, GFR #### [address] [address] CBCon 10-08-2023 Erythrocyte distribution width (RBC) [Ratio] 13.6 % Normal 11.5-14.5 Counts Include [address] At [facility] ([place] Comment on above: Performed By: #### A DIFF, ANEU, CBC #### [address] [address] Hematocrit (Bld) [Volume fraction] 40.0 % Low 42.0-52.0 Counts Include [address] At [facility] ([place] Comment on above: Performed By: #### A DIFF, ANEU, CBC #### [address] [address] Hgb 13.4 G/dL Low 14.0-18.0 Counts Include [address] At [facility] ([place] Comment on above: Performed By: #### A DIFF, ANEU, CBC #### [address] [address] MCH (RBC) [Entitic mass] 30.5 pg Normal 27.0-31.2 Counts Include [address] At [facility] ([place] Comment on above: Performed By: #### A DIFF, ANEU, CBC #### [address] [address] MCHC 33.6 G/dL Normal 31.8-35.4 Counts Include [address] At [facility] ([place] Comment on above: Performed By: #### A DIFF, ANEU, CBC #### [address] [address] MCV (RBC) [Entitic vol] 90.8 fL Normal 80.0-94.0 [facility] ([place]) Comment on above: Performed By: #### A DIFF, ANEU, CBC #### [address] [address] Platelet 222 10 3/mcL Normal 130-400 Counts Include [address] At [facility] ([place] Comment on above: Performed By: #### A DIFF, ANEU, CBC #### [address] [address] Platelet mean volume (Bld) [Entitic vol] 7.7 fL Normal 7.4-10.4 Counts Include [address] [facility] At [facility] ([place] Comment on above: Performed By: #### A DIFF, ANEU, CBC #### [address] [address] RBC 4.41 10 6/mcL Normal 4.04-6.13 Counts Include [address] At [facility] ([place] Comment on above: Performed By: #### A DIFF, ANEU, CBC #### [address] [address] WBC 5.3 10 3/mcL Normal 4.6-10.8 Counts Include [address] At [facility] ([place] Comment on above: Performed By: #### A DIFF, ANEU, CBC #### [address] [address] Basophil percentageOrdered B y: Dhruv Diez on 08-22-2023 Basophil percentage 50-100 SEEN /hpf 0-5 [facility] Bilirubin Test strip Ql (U)O rdered By: Dhruv Diez on 08-22-2023 Bilirubin Ql (U) Negative Negative [facility] Ketones Test strip Ql (U)Ord ered By: Dhruv Diez on 12-23-2023 Ketones Ql (U) Negative Negative [facility] Mucus LM Ql (Urine sed)Order ed By: Dhruv Diez on 08-22-2023 Mucus Ql (Urine sed) 0 SEEN /hpf [facility] Nitrite Test strip Ql (U)Ord ered By: Dhruv Diez on 08-22-2023 Nitrite Ql (U) Negative Negative [facility] Protein Test strip Ql (U)Ord ered By: Dhruv Diez on 08-22-2023 Protein Ql (U) 30 mg/dl Negative [facility] Squamous epithelial cells de tection in urine sediment by light microscopyOrdered By: Dhruv Diez on 08-22-2023 Epithelial cells.squamous LM Ql (Urine sed) 0 SEEN /hpf 0-5 [facility] Urine blood detectionOrdered By: Dhruv Diez on 08-22-2023 RBC Ql (U) 50 /ul Negative [facility] RBC Ql (U) 0-5 SEEN /hpf 0-5 [facility] Urine clarityOrdered By: Sandy Diez on 08-22-2023 Clarity (U) Clear Clear [facility] Urine color determinationOrd ered By: Dhruv Diez on 08-22-2023 Color (U) Yellow Yellow [facility] Urine glucose detectionOrder ed By: Dhruv Diez on 08-22-2023 Glucose Ql (U) Normal mg/dl Normal [facility] Urine leukocyte esterase det ection by dipstickOrdered By: Dhruv Diez on 08-22-2023 Leukocyte esterase Test strip Ql (U) 500 /ul Negative [facility] Urine pHOrdered By: Dhruv saenz on 08-22-2023 pH (U) 6.5 [pH] 5.0 - 8.0 [facility] Urine sediment bacteria coun t by microscopy (number/high power field)Ordered By: Dhruv Diez on 08-22-2023 Bacteria LM.HPF (Urine sed) [#/Area] 0 /[HPF] None Seen [facility] Urine specific gravity measu rementOrdered By: Dhruv Diez on 08-22-2023 Specific gravity (U) [Rel density] 1.010 1.002-1.030 [facility] Urobilinogen Auto test strip Ql (U)Ordered By: Dhruv Diez on 08-22-2023 Urobilinogen Ql (U) Normal mg/dl Normal [facility] No Panel InformationOrdered By: Jose You on 07-10-2023 Prostate Specific Antigen Total < 0.01 ng/mL 0.0-4.0 [facility] Comment on above: This test was perfor med using the TPSA assay method for the[employer] chemistry system. Values obtained with differentassay methods cannot be used interchangably.When changing PSA assays in the course of monitoring apatient, additional sequential testing should be carriedout to confirm baseline values. ALBUMIN/CREAT RATIO RND URon 05-09-2023 Albumin DL <= 20 mg/L (U) [Mass/Vol] 71.9 mg/L [facility] Albumin/Creatinine (U) [Mass ratio] 61 mg/g High <30 mg/g [facility] Creatinine (U) [Mass/Vol] 118.5 mg/dL 20.0 - 300.0 mg/dL [facility] FERRITIN BLDon 05-09-2023 Ferritin [Mass/Vol] 272.0 ng/mL 30.3 - 5 65.7 ng/mL [facility] FOLATE SERUMon 05-09-2023 Folate [Mass/Vol] >4.7 ng/mL [facility] Iron and Iron binding capaci ty panelon 05-09-2023 Iron [Mass/Vol] 78 ug/dL 41 - 186 ug/dL [facility] Iron binding capacity [Mass/Vol] 326 ug/dL 232 - 386 ug/dL [facility] Iron/TIBC [Molar ratio] 23.9 % 15.0 - 57.0 % [facility] LD LACTATE DEHYDROon 023 LDH [Catalytic activity/Vol] 145 U/L 135 - 225 U/L [facility] Urinalysis complete panel (U )on 05-09-2023 Bilirubin Ql (U) Negative Negative [facility] Clarity (Unsp spec) Cloudy Abnormal Clear [facility] Color (U) Yellow Yellow [facility] Glucose Test strip (U) [Mass/Vol] Negative Trace, Negative [facility] Hemoglobin Ql (U) Negative Negative, Trace [facility] Ketones Ql (U) Negative Trace, Negative [facility] Leukocyte esterase Test strip Ql (U) 500 Akil/uL Abnormal Negative, 25 Akil/uL [facility] Nitrite Ql (U) Negative Negative [facility] pH (U) 6.0 [pH] 5.0 - 8.0 [facility] Protein (U) [Mass/Vol] 1+ Abnormal Trace , Negative [facility] RBC LM.HPF (Urine sed) [#/Area] 0-3 /HPF 0-3 /HPF [facility] Specific gravity (U) [Rel density] 1.020 1.005 - 1.030 [facility] Urobilinogen Ql (U) Negative Negative [facility] WBC LM.HPF (Urine sed) [#/Area] /[HPF] Abnormal 0-5 /HPF [facility] VITAMIN B12 BLOODon 05-09-20 Cobalamin (Vitamin B12) [Mass/Vol] 533 pg/mL 232 - 1,245 pg/mL [facility] RETIC COUNTon 05-08-2023 Reticulocytes (Bld) [#/Vol] 0.83470 10*3/uL 0.018 - 0.100 M/uL [facility] Reticulocytes (Bld) [#/Vol]o n 05-08-2023 Reticulocytes/100 RBC (Bld) 1.3 % 0.4 - 2.0 % [facility] CTA ABD/PEL W IVCONon 2022 Radiology Result ACTIONABLE Abnormal [facility] CT LUMBAR SPINE WO IVCONon 0 02-19-2023 Radiology Result ACTIONABLE Abnormal [facility] No Panel InformationOrdered By: Dr. Lundberg on 09-18-2022 Prostate Specific Antigen Total < 0.01 ng/mL 0.0-4.0 [facility] Comment on above: This test was perfor med using the TPSA assay method for the[facility] chemistry system. Values obtained with differentassay methods cannot be used interchangably.When changing PSA assays in the course of monitoring apatient, additional sequential testing should be carriedout to confirm baseline values. URINE CULTUREon 07-12-2022 Bacteria identified Cx Nom (U) 10,000 -<50,000 CFU/ml Normal urogenital gia [facility] UA DIP, URINE (POC)on 2021 BILIRUBIN UA (POCT) Negative Negative [facility] CLARITY UA (POCT) Clear [facility] COLOR UA (POCT) Yellow [facility] GLUCOSE UA (POCT) Negative Negative mg/dL [facility] HEMOGLOBIN/BLOOD UA (POCT) Large Abnormal Negative [facility] KETONE UA (POCT) Negative Negative mg/dL [facility] LEUKOCYTES UA (POCT) Moderate Abnormal Negative [facility] NITRITE UA (POCT) Negative Negative [facility] PH UA (POCT) 6.0 4.5 - 8.0 [facility] Protein Ql (U) 30 mg/dL Abnormal Negative mg/dL [facility] SPECIFIC GRAVITY UA (POCT) 1.015 1.005 - 1.030 [facility] UROBILINOGEN UA (POCT) 0.2 E.U./dL Inez l E.U./dL [facility] Glucose Glucometer (BldC) [M ass/Vol]Ordered By: Dr. Lundberg on 06-25-2022 Glucose [Mass/Vol] 152 mg/dL 74-106 [facility] Comment on above: MANAGEMENT OF PATIEN T CARE PER NURSING PROTOCOL Basophil percentageOrdered B y: Dr. Hughes on 06-16-2022 Chloride [Moles/Vol] 105 mmol/L 98-107 [facility] Glucose [Mass/Vol] 110 mg/dL 74-106 [facility] Comment on above: Fasting Glucose resu lt from 100 to 125 mg/dL suggests IMPAIRED HOMEOSTASIS per A.D.A. criteria. Potassium [Moles/Vol] 3.9 mmol/L 3.5-5.1 [facility] Sodium [Moles/Vol] 142 mmol/L 136-145 [facility] WBC (Bld) [#/Vol] 4.5 10*3/uL 4.4-11.0 [facility] Blood erythrocytes count (nu mber/volume)Ordered By: Dr. Hughes on 06-16-2022 RBC (Bld) [#/Vol] 4.03 10*6/uL 4.6-6.2 [facility] Blood hemoglobin measurement (mass/volume)Ordered By: Dr. Hughes on 06-16-2022 Hemoglobin (Bld) [Mass/Vol] 12.6 g/dL 13.0-16.5 [facility] Blood platelet mean volumeOr dered By: Dr. Hughes on 06-16-2022 Platelet mean volume (Bld) [Entitic vol] 8.2 fL 6.2-12.0 [facility] Determination of erythrocyte mean corpuscular volume (MCV)Ordered By: Dr. Hughes on 06-16-2022 MCV (RBC) [Entitic vol] 91.6 fL 80-94 [facility] Hematocrit Auto (Bld) [Volum e fraction]Ordered By: Dr. Hughes on 06-16-2022 Hematocrit (Bld) [Volume fraction] 36.9 % 40-54 [facility] Laboratory - Chemistry and C hemistry - challengeOrdered By: Dr. Hughes on 06-16-2022 CO2 [Moles/Vol] 30.0 mmol/L 21.0-32.0 [facility] Urea nitrogen/Creatinine [Mass ratio] 12.5 mg/mg 10-20 [facility] Laboratory - Hematology and Cell countsOrdered By: Dr. Hughes on 06-16-2022 Erythrocyte distribution width (RBC) [Entitic vol] 46.8 fL 35.1-43.9 [facility] Erythrocyte distribution width (RBC) [Ratio] 14.0 % 11.6-14.6 [facility] MCH (RBC) [Entitic mass] 31.3 pg 27.0-32.0 [facility] MCHC Auto (RBC) [Mass/Vol]Or dered By: Dr. Hughes on 06-16-2022 MCHC (RBC) [Mass/Vol] 34.1 g/dL 32-36 [facility] No Panel InformationOrdered By: Dr. Hughes on 06-16-2022 Estimated GFR (MDRD) Amer 88 mL/min >60 [facility] Comment on above: GFR Calc Estimated GFR (MDRD) Non-Af Amer 73 mL/min >60 [facility] Comment on above: Non- GFR Calc Platelets bldOrdered By: Dr. Hughes on 06-16-2022 Platelets (Bld) [#/Vol] 170 10*3/uL 150-450 [facility] Serum or plasma calcium alfredo urement (mass/volume)Ordered By: Dr. Hughes on 06-16-2022 Calcium [Mass/Vol] 9.2 mg/dL 8.5-10.1 [facility] Serum or plasma creatinine m easurement (mass/volume)Ordered By: Dr. Hughes on 06-16-2022 Creatinine [Mass/Vol] 1.04 mg/dL 0.70-1.30 [facility] Comment on above: The validity of the calculated GFR & GFRAA in patients over 70 years has not been determined. Clinical correlation is essential. Serum or plasma urea nitroge n measurement (mass/volume)Ordered By: Dr. Hughes on 06-16-2022 Urea nitrogen [Mass/Vol] 13 mg/dL 7-18 [facility] Thin prep Papanicolaou smear with manual screeningOrdered By: Dr. Hughes on 06-16-2022 Thin prep Papanicolaou smear with manual screening 7 5-15 [facility] Whole blood hemoglobin A1c/t otal hemoglobin ratio (mass fraction)Ordered By: Dr. Hughes on 06-16-2022 HbA1c (Bld) [Mass fraction] 6.3 % 3.8-5.6 [facility] Comment on above: Normal < 5.7 % Predi abetic 5.7 - 6.4 % Diabetic >or= 6.5 % Please note range changes. Basophil percentageon 2021 Creatinine [Mass/Vol] 1.0 mg/dL 0.70-1.30 [facility] Work Phone: No Panel Informationon 04-22 Bedside Estimated GFR (eGFR) > 60.0000 mL/min >60 [facility] Work Phone: Glucose Glucometer (BldC) [M ass/Vol]on 04-16-2022 Glucose [Mass/Vol] 127 mg/dL 74-106 [facility] Work Phone: Comment on above: MANAGEMENT OF PATIEN T CARE PER NURSING PROTOCOL XR DIGIT GENERAL 3V FRONTAL/ LAT/OBL RIGHTon 03-26-2022 [facility] XR Finger - right AP and Lat eral and obliqueon 03-26-2022 IMPRESSION: No acute osseous abnormality. Driver'S License Reviewing Officer: KELLEY Transcribe Date/Time: Mar 26 2022 11:50A Dictated by : NELL HERNANDEZ DO This examination was interpreted and the report reviewed and electronically signed by: NELL HERNANDEZ DO on Mar 26 2022 11:53AM EST [email or web address]__[email or web address] E_DIVISION OF RADIOLOGY * * *Final Report* * * DATE OF EXAM: Mar 26 2022 11:48AM WOX [id number] - XR DIGIT 3V FRONTAL/LAT/OBL RT / PROCEDURE REASON: Finger pain, right * * * * Physician Interpretation * * * * EXAMINATION: XR DIGIT 3V FRONTAL/LAT/OBL RT PATIENT/TECHNOLOGIST PROVIDED HISTORY: Pain in right pinky/5th finger that radiates down into palm x 2 months CLINICAL INFORMATION: 81 years old Male with Finger pain, right TECHNIQUE: XR DIGIT 3V FRONTAL/LAT/OBL RT Laterality: RIGHT Number of different views (projections): 3 COMPARISON: None RESULT: No fracture or dislocation. Visualized joint spaces are maintained. No erosions or other significant abnormality. [email or web address] E_DIVISION OF RADIOLOGY Provider, [facility] - 03/26/2022 * * *Final Report* * * DATE OF EXAM: Mar 26 2022 11:48AM WOX [id number] - XR DIGIT 3V FRONTAL/LAT/OBL RT / PROCEDURE REASON: Finger pain, right * * * * Physician Interpretation * * * * EXAMINATION: XR DIGIT 3V FRONTAL/LAT/OBL RT PATIENT/TECHNOLOGIST PROVIDED HISTORY: Pain in right pinky/5th finger that radiates down into palm x 2 months CLINICAL INFORMATION: 81 years old Male with Finger pain, right TECHNIQUE: XR DIGIT 3V FRONTAL/LAT/OBL RT Laterality: RIGHT Number of different views (projections): 3 COMPARISON: None RESULT: No fracture or dislocation. Visualized joint spaces are maintained. No erosions or other significant abnormality. IMPRESSION IMPRESSION: No acute osseous abnormality. Driver'S License Reviewing Officer: KELLEY Transcribe Date/Time: Mar 26 2022 11:50A Dictated by : NELL HERNANDEZ DO This examination was interpreted and the report reviewed and electronically signed by: NELL HERNANDEZ DO on Mar 26 2022 11:53AM EST [facility] Radiology [facility]arrative[facility] Finger - right AP and Lat eral and obliqueOrdered By: [facility] Provider on 03-26-2022 [facility] No Panel InformationOrdered By: Dr. You on 03-04-2022 Prostate Specific Antigen Total 17.60 ng/mL 0.0-4.0 [facility] Comment on above: This test was perfor med using the TPSA assay method for [employer] chemistry system. Values obtained with differentassay methods cannot be used interchangably.When changing PSA assays in the course of monitoring apatient, additional sequential testing should be carriedout to confirm baseline values. Basophil percentageon 2021 Creatinine [Mass/Vol] 0.9 mg/dL 0.70-1.30 [facility] Work Phone: No Panel Informationon 02-12 Bedside Estimated GFR (eGFR) > 60.0000 mL/min >60 [facility] Work Phone: UA DIP, URINE (POC)on 2021 BILIRUBIN UA (POCT) Negative Negative [facility] CLARITY UA (POCT) Clear [facility] COLOR UA (POCT) Yellow [facility] GLUCOSE UA (POCT) Negative Negative mg/dL [facility] HEMOGLOBIN/BLOOD UA (POCT) Negative Negative [facility] KETONE UA (POCT) Negative Negative mg/dL [facility] LEUKOCYTES UA (POCT) Negative Negative [facility] NITRITE UA (POCT) Negative Negative [facility] PH UA (POCT) 7.0 4.5 - 8.0 [facility] Protein Ql (U) Negative Negative mg/dL [facility] SPECIFIC GRAVITY UA (POCT) 1.015 1.005 - 1.030 [facility] UROBILINOGEN UA (POCT) 0.2 E.U./dL Inez l E.U./dL [facility] Vital Signs Date Time Vital Sign Value Performing Clinician Faci lity 02-25-2025 10:18-0400 Body mass index (BMI) [Ratio] 25.27 kg/m2 Anthony HERRERA Work Phone: [facility] 02-25-2025 [id number] Body temperature 97.5 [degF] Anthony HERRERA Work Phone: [facility] 02-25-2025 10:18-040 Body weight 84.5 kg Anthony HERRERA Work Phone: [facility] 02-25-2025 10:18-0400 Diastolic blood pressure 63 mm[Hg] Krislyn Aberegg PA Work Phone: [facility] 02-25-2025 10:18-0400 Heart rate 79 /min Krislyn Aberegg PA Work Phone: [facility] 02-25-2025 10:18-0400 Respiratory rate 18 /min Krislyn Aberegg PA Work Phone: [facility] 02-25-2025 10:18-0400 SaO2% (BldA) [Mass fraction] 97 % Krislyn Aberegg PA Work Phone: [facility] 02-25-2025 10:18-0400 Systolic blood pressure 110 mm[Hg] Krislyn Aberegg PA Work Phone: [facility] 02-13-2025 08:07-0400 Body height 182.[address] Perfecto Warner MD Work Phone: [facility] 02-13-2025 08:07-0400 Body mass index (BMI) [Ratio] 25.4 kg/m2 Dr. Perfecto Warner MD Work Phone: [facility] 02-13-2025 08:07-0400 Body temperature 97.8 [degF] Dr. Perfecto Warner MD Work Phone: [facility] 02-13-2025 08:07-0400 Body weight 85.[address] Perfecto Warner MD Work Phone: [facility] 02-13-2025 08:07-0400 Diastolic blood pressure 71 mm[Hg] Dr. Perfecto Warner MD Work Phone: [facility] 02-13-2025 08:07-0400 Heart rate 65 /min Dr. Perfecto Warner MD Work Phone: [phone] [place] [address] 02-13-2025 08:07-0400 Respiratory rate 18 /min Dr. Perfecto Warner MD Work Phone: [facility] 02-13-2025 08:07-0400 SaO2% (BldA) [Mass fraction] 96 % Dr. Perfecto Warner MD Work Phone: [facility] 02-13-2025 08:07-0400 Systolic blood pressure 130 mm[Hg] Dr. Perfecto Warner MD Work Phone: [facility] 02-07-2025 10:31-0400 Body height 182.9 cm Kamla Crowder PA-C Work Phone: [facility] 02-07-2025 10:31-0400 Body mass index (BMI) [Ratio] 25.63 kg/m2 Kamla Crowder PA-C Work Phone: [facility] 02-07-2025 10:31-0400 Body weight 85.73 kg Kamla Crowder PA-C Work Phone: [facility] 02-07-2025 10:31-0400 Diastolic blood pressure 74 mm[Hg] Kamla Crowder PA-C Work Phone: [facility] 02-07-2025 10:31-0400 Heart rate 64 /min Kamla Crowder PA-C Work Phone: [facility] 02-07-2025 10:31-0400 Systolic blood pressure 118 mm[Hg] Kamla Crowder PA-C Work Phone: [facility] 01-23-2025 14:51-0400 Body height 182.[address] Perfecto Warner MD Work Phone: [facility] 01-23-2025 14:51-0400 Body mass index (BMI) [Ratio] 25.9 kg/m2 Dr. Perfecto Warner MD Work Phone: [facility] 01-23-2025 14:51-0400 Body temperature 97 [degF] Dr. Perfecto Warner MD Work Phone: [facility] 01-23-2025 14:51-0400 Body weight [address] Perfecto Warner MD Work Phone: [facility] 01-23-2025 14:51-0400 Diastolic blood pressure 67 mm[Hg] Dr. Perfecto Warner MD Work Phone: [facility] 01-23-2025 14:51-0400 Heart rate 84 /min Dr. Perfecto Warner MD Work Phone: [phone] [place] [address] 01-23-2025 14:51-0400 Respiratory rate 14 /min Dr. Perfecto Warner MD Work Phone: [phone] [place] [address] 01-23-2025 14:51-0400 SaO2% (BldA) [Mass fraction] 98 % Dr. Perfecto Warner MD Work Phone: 8(970)364-491459 [place] [address] 01-23-2025 14:51-0400 Systolic blood pressure 143 mm[Hg] Dr. Perfecto Warner MD Work Phone: [facility] 11-25-2024 08:24-0400 Body mass index (BMI) [Ratio] 25 kg/m2 Dr. Perfecto Warner MD Work Phone: [facility] 11-25-2024 08:24-0400 Body weight 83.[address] Perfecto Warner MD Work Phone: [facility] 11-15-2024 09:47-0400 Body mass index (BMI) [Ratio] 26.31 kg/m2 Dianna Valencia MD Work Phone: [facility] 11-15-2024 09:47-0400 Body weight 88 kg Dianna Valencia MD Work Phone: [facility] 11-15-2024 09:47-0400 Diastolic blood pressure 56 mm[Hg] Dianna Valencia MD Work Phone: [facility] 11-15-2024 09:47-0400 Heart rate 70 /min Dianna Valencia MD Work Phone: [facility] 11-15-2024 09:47-0400 Systolic blood pressure 130 mm[Hg] Dianna Valencia MD Work Phone: [facility] 11-08-2024 07:56-0400 Body mass index (BMI) [Ratio] 26.42 kg/m2 Yolande Warner MD Work Phone: [facility] 11-08-2024 07:56-0400 Body weight 88.36 kg Yolande Warner MD Work Phone: [facility] 11-08-2024 07:56-0400 Diastolic blood pressure 62 mm[Hg] Yolande Warner MD Work Phone: [facility] 11-08-2024 07:56-0400 Heart rate 73 /min Yolande Warner MD Work Phone: [facility] 11-08-2024 07:56-0400 Respiratory rate 16 /min Yolande Warner MD Work Phone: [facility] 11-08-2024 07:56-0400 SaO2% (BldA) [Mass fraction] 96 % Yolande Warner MD Work Phone: [facility] 11-08-2024 07:56-0400 Systolic blood pressure 110 mm[Hg] Yolande Warner MD Work Phone: [facility] 10-08-2024 14:23-0500 Body mass index (BMI) [Ratio] 26.49 kg/m2 Kamlesh Alvarado APRN.PUBLIC HEALTH PROGRAM MANAGER Work Phone: [facility] 10-08-2024 14:23-0500 Body weight 88.6 kg Kamlesh Alvarado APRN.PUBLIC HEALTH PROGRAM MANAGER Work Phone: [facility] 10-08-2024 14:23-0500 Diastolic blood pressure 62 mm[Hg] Kamlesh Alvarado APRN.PUBLIC HEALTH PROGRAM MANAGER Work Phone: [facility] 10-08-2024 14:23-0500 Heart rate 76 /min Kamlesh Alvarado APRN.PUBLIC HEALTH PROGRAM MANAGER Work Phone: [facility] 10-08-2024 14:23-0500 Respiratory rate 16 /min Kamlesh Alvarado RIGGER [employer]IRD.PUBLIC [employer]ALTH PROGRAM MANAGER Work Phone: [facility] 10-08-2024 14:23-0500 SaO2% (BldA) [Mass fraction] 97 % Kamlesh Christiano [employer]GER [employer].PUBLIC [employer]ALTH PROGRAM MANAGER Work Phone: [facility] 10-08-2024 14:23-0500 Systolic blood pressure 122 mm[Hg] Kamlesh Christiano RIGGER [employer]IRD.PUBLIC [employer]ALTH PROGRAM MANAGER Work Phone: [facility] 09-29-2024 08:16-0500 Body mass index (BMI) [Ratio] 26.46 kg/m2 Monet Praisler-Wood R[employer]GER [employer]IRD.PUBLIC [employer]ALTH PROGRAM MANAGER Work Phone: [facility] 09-29-2024 08:16-0500 Body temperature 98.01 [degF] Monet Praisler-Wood R[employer]GER [employer]IRD.PUBLIC HEALTH PROGRAM MANAGER Work Phone: [facility] 09-29-2024 08:16-0500 Body weight 88.5 kg Monet Praisler-Wood R[employer]GER [employer]IRD.PUBLIC HEALTH PROGRAM MANAGER Work Phone: [facility] 09-29-2024 08:16-0500 Diastolic blood pressure 64 mm[Hg] Monet Praisler-Wood R[employer]GER [employer]IRD.PUBLIC HEALTH PROGRAM MANAGER Work Phone: [facility] 09-29-2024 08:16-0500 Heart rate 84 /min Monet Praisler-Wood RIGGER [employer]IRD.PUBLIC HEALTH PROGRAM MANAGER Work Phone: [facility] 09-29-2024 08:16-0500 Respiratory rate 21 /min Monet Praisler-Wood RIGGER [employer]IRD.PUBLIC HEALTH PROGRAM MANAGER Work Phone: [facility] 09-29-2024 08:16-0500 SaO2% (BldA) [Mass fraction] 96 % Monet Praisler-Wood RIGGER [employer]IRD.PUBLIC HEALTH PROGRAM MANAGER Work Phone: [facility] 09-29-2024 08:16-0500 Systolic blood pressure 110 mm[Hg] Monet Praisler-Wood RIGGER [employer]IRD.PUBLIC HEALTH PROGRAM MANAGER Work Phone: [facility] 09-08-2024 09:04-0500 Body mass index (BMI) [Ratio] 26.7 kg/m2 Dr. Perfecto Warner MD Work Phone: [facility] 09-08-2024 09:04-0500 Body weight 89.[address] Perfecto Warner MD Work Phone: [facility] 08-25-2024 08:59-0500 Body mass index (BMI) [Ratio] 26.61 kg/m2 Jesse Avery MD Work Phone: [facility] 08-25-2024 08:59-0500 Body temperature 97 [degF] Jesse Avery MD Work Phone: [facility] 08-25-2024 08:59-0500 Body weight 89 kg Jesse Avery MD Work Phone: [facility] 08-25-2024 08:59-0500 Diastolic blood pressure 67 mm[Hg] Jesse Avery MD Work Phone: [facility] 08-25-2024 08:59-0500 Heart rate 79 /min Jesse Avrey MD Work Phone: [facility] 08-25-2024 08:59-0500 Respiratory rate 18 /min Jesse Avery MD Work Phone: [facility] 08-25-2024 08:59-0500 SaO2% (BldA) [Mass fraction] 97 % Jesse Avery MD Work Phone: [facility] 08-25-2024 08:59-0500 Systolic blood pressure 119 mm[Hg] Jesse Avery MD Work Phone: [facility] 07-26-2024 09:21-0500 Body height 182.9 cm Kamla Crowder PA-C Work Phone: [facility] 07-26-2024 09:21-0500 Body mass index (BMI) [Ratio] 25.09 kg/m2 Kamla Crowder PA-C Work Phone: [facility] 07-26-2024 09:21-0500 Body weight 83.92 kg Kamla Crowder PA-C Work Phone: [facility] 07-26-2024 09:21-0500 Diastolic blood pressure 60 mm[Hg] Kamla Crowder PA-C Work Phone: [facility] 07-26-2024 09:21-0500 Heart rate 66 /min Kamla Rockon PA-C Work Phone: [facility] 07-26-2024 09:21-0500 Systolic blood pressure 110 mm[Hg] Kamla Crowder PA-C Work Phone: [facility] 07-08-2024 12:59-0500 Diastolic blood pressure 72 mm[Hg] Yolande Warner MD Work Phone: [facility] 07-08-2024 12:59-0500 Heart rate 82 /min Yolande Warner MD Work Phone: [facility] 07-08-2024 12:59-0500 Respiratory rate 18 /min Yolande Warner MD Work Phone: [facility] 07-08-2024 12:59-0500 SaO2% (BldA) [Mass fraction] 99 % Yolande Warner MD Work Phone: [facility] 07-08-2024 12:59-0500 Systolic blood pressure 114 mm[Hg] Yolande Warner MD Work Phone: [facility] 06-25-2024 08:36-0400 Body mass index (BMI) [Ratio] 25.09 kg/m2 Yolande Warner MD Work Phone: [facility] 06-25-2024 08:36-0400 Body temperature 96.69 [degF] Yolande Warner MD Work Phone: [facility] 06-25-2024 08:36-0400 Body weight 83.92 kg Yolande Warner MD Work Phone: [facility] 06-25-2024 08:36-0400 Diastolic blood pressure 72 mm[Hg] Yolande Warner MD Work Phone: [facility] 06-25-2024 08:36-0400 Heart rate 68 /min Yolande Warner MD Work Phone: [facility] 06-25-2024 08:36-0400 Respiratory rate 18 /min Yolande Warner MD Work Phone: [facility] 06-25-2024 08:36-0400 SaO2% (BldA) [Mass fraction] 97 % Yolande Warner MD Work Phone: [facility] 06-25-2024 08:36-0400 Systolic blood pressure 112 mm[Hg] Yolande Warner MD Work Phone: [facility] 06-06-2024 08:34-0400 Body mass index (BMI) [Ratio] 25.06 kg/m2 Devora Johnsonf [employer]GER [employer] PROGRAM MANAGER Work Phone: [facility] 06-06-2024 08:34-0400 Body weight 83.8 kg Devora Johnsonf RIGGER [employer]IRD.PUBLIC HEALTH PROGRAM MANAGER Work Phone: [facility] 06-06-2024 08:34-0400 Diastolic blood pressure 67 mm[Hg] Devora Hollidayhof RIGGER [employer]IRD.PUBLIC HEALTH PROGRAM MANAGER Work Phone: [facility] 06-06-2024 08:34-0400 Heart rate 76 /min Devora Hollidayhof RIGGER THIRD.PUBLIC HEALTH PROGRAM MANAGER Work Phone: [facility] 06-06-2024 08:34-0400 Respiratory rate 16 /min Devora Hollidayhof RIGGER [employer]IRD.PUBLIC HEALTH PROGRAM MANAGER Work Phone: [facility] 06-06-2024 08:34-0400 SaO2% (BldA) [Mass fraction] 98 % Devora Borja R[employer]GER [employer]IRD.PUBLIC HEALTH PROGRAM MANAGER Work Phone: [facility] 06-06-2024 08:34-0400 Systolic blood pressure 117 mm[Hg] Devora Hollidayhof RIGGER [employer]IRD.PUBLIC HEALTH PROGRAM MANAGER Work Phone: [facility] 06-04-2024 11:48-0400 Body mass index (BMI) [Ratio] 25.12 kg/m2 Gloria Raleigh R[employer]GER [employer]IRD.PUBLIC HEALTH PROGRAM MANAGER Work Phone: [facility] 06-04-2024 11:48-0400 Body temperature 97.3 [degF] Gloria Willian R[employer]GER [employer]IRD.PUBLIC HEALTH PROGRAM MANAGER Work Phone: [facility] 06-04-2024 11:48-0400 Body weight 84 kg Gloria Raleigh R[employer]GER [employer]IRD.PUBLIC HEALTH PROGRAM MANAGER Work Phone: [facility] 06-04-2024 11:48-0400 Diastolic blood pressure 78 mm[Hg] Gloria Raleigh RIGGER THIRD.PUBLIC HEALTH PROGRAM MANAGER Work Phone: [facility] 06-04-2024 11:48-0400 Heart rate 80 /min Gloria Willian RIGGER THIRD.PUBLIC HEALTH PROGRAM MANAGER Work Phone: [facility] 06-04-2024 11:48-0400 Respiratory rate 18 /min Gloria Willian RIGGER THIRD.PUBLIC HEALTH PROGRAM MANAGER Work Phone: [facility] 06-04-2024 11:48-0400 SaO2% (BldA) [Mass fraction] 95 % Gloria Willian RIGGER THIRD.PUBLIC HEALTH PROGRAM MANAGER Work Phone: [facility] 06-04-2024 11:48-0400 Systolic blood pressure 128 mm[Hg] Gloria Raleigh RIGGER THIRD.PUBLIC HEALTH PROGRAM MANAGER Work Phone: [facility] 05-17-2024 09:24-0400 Body height 182.9 cm Dianna Valencia MD Work Phone: [facility] 05-17-2024 09:24-0400 Body mass index (BMI) [Ratio] 25.09 kg/m2 Dianna Valencia MD Work Phone: [facility] 05-17-2024 09:24-0400 Body weight 83.92 kg Dianna Valencia MD Work Phone: [facility] 05-17-2024 09:24-0400 Diastolic blood pressure 66 mm[Hg] Dianna Valencia MD Work Phone: [facility] 05-17-2024 09:24-0400 Heart rate 68 /min Dianna Valencia MD Work Phone: [facility] 05-17-2024 09:24-0400 Respiratory rate 16 /min Dianna Valencia MD Work Phone: [facility] 05-17-2024 09:24-0400 Systolic blood pressure 137 mm[Hg] Dianna Valencia MD Work Phone: [facility] 05-10-2024 07:49-0400 Body mass index (BMI) [Ratio] 23.83 kg/m2 Yolande Warner MD Work Phone: [facility] 05-10-2024 07:49-0400 Body weight 84.19 kg Yolande Warner MD Work Phone: [facility] 05-10-2024 07:49-0400 Diastolic blood pressure 62 mm[Hg] Yolande Warner MD Work Phone: [facility] 05-10-2024 07:49-0400 Heart rate 71 /min Yolande Warner MD Work Phone: [facility] 05-10-2024 07:49-0400 Respiratory rate 16 /min Yolande Warner MD Work Phone: [facility] 05-10-2024 07:49-0400 SaO2% (BldA) [Mass fraction] 96 % Yolande Warner MD Work Phone: [facility] 05-10-2024 07:49-0400 Systolic blood pressure 102 mm[Hg] Yolande Warner MD Work Phone: [facility] 01-07-2024 07:59-0400 Heart rate 73 /min Bull Lam MD Work Phone: [facility] 01-07-2024 07:59-0400 Respiratory rate 16 /min Bull Lam MD Work Phone: [facility] 01-07-2024 07:59-0400 SaO2% (BldA) [Mass fraction] 95 % Bull Lam MD Work Phone: [facility] 11-06-2023 08:55-0500 Body weight 87.91 kg Yolande Warner MD Work Phone: [facility] 11-06-2023 08:55-0500 Diastolic blood pressure 62 mm[Hg] Yolande Warner MD Work Phone: [facility] 11-06-2023 08:55-0500 Heart rate 70 /min Yolande Warner MD Work Phone: [facility] 11-06-2023 08:55-0500 Respiratory rate 16 /min Yolande Warner MD Work Phone: [facility] 11-06-2023 08:55-0500 SaO2% (BldA) [Mass fraction] 97 % Yolande Warner MD Work Phone: [facility] 11-06-2023 08:55-0500 Systolic blood pressure 108 mm[Hg] Yolande Warner MD Work Phone: [facility] 11-05-2023 09:42-0500 Heart rate 67 /min Cristal Prebish [employer]GER [employer] PROGRAM MANAGER Work Phone: [facility] 11-05-2023 09:42-0500 Respiratory rate 16 /min Cristal Prebish RIGGER THIRD.PUBLIC HEALTH PROGRAM MANAGER Work Phone: [facility] 11-05-2023 09:42-0500 SaO2% (BldA) [Mass fraction] 98 % Cristal Prebish RIGGER THIRD.PUBLIC HEALTH PROGRAM MANAGER Work Phone: [facility] 08-22-2023 08:20-0500 Diastolic blood pressure 69 mm[Hg] Dr. Perfecto Warner Work Phone: [facility] 08-22-2023 08:20-0500 Heart rate 77 /min Dr. Perfecto Warner Work Phone: [facility] 08-22-2023 08:20-0500 Respiratory rate 16 /min Dr. Perfecto Warner Work Phone: [facility] 08-22-2023 08:20-0500 SaO2% (BldA) [Mass fraction] 96 % Dr. Perfecto Warner Work Phone: 6(326)495-215264 [place] [address] 08-22-2023 08:20-0500 Systolic blood pressure 134 mm[Hg] Dr. Perfecto Warner Work Phone: 6(638)647-115064 [place] [address] 08-22-2023 04:31-0500 Body height 182.[address] Perfecto Warner Work Phone: 2(357)999-911164 [place] [address] 08-22-2023 04:31-0500 Body mass index (BMI) [Ratio] 25 kg/m2 Dr. Perfecto Warner Work Phone: 1(288)252-298164 [place] [address] 08-22-2023 04:31-0500 Body temperature 98 [degF] Dr. Perfecto Warner Work Phone: 5(415)046-178864 [place] [address] 08-22-2023 04:31-0500 Body weight 83.[address] Perfecto Warner Work Phone: 0(091)426-893064 [place] [address] 08-13-2023 19:00-0500 Diastolic blood pressure 74 mm[Hg] Dr. Perfecto Warner Work Phone: 5(538)788-632759 [place] [address] 08-13-2023 19:00-0500 Heart rate 80 /min Dr. Perfecto Warner Work Phone: 0(663)819-380264 [place] [address] 08-13-2023 19:00-0500 Respiratory rate 16 /min Dr. Perfecto Warner Work Phone: 9(429)925-460059 [place] [address] 08-13-2023 19:00-0500 SaO2% (BldA) [Mass fraction] 98 % Dr. Perfecto Warner Work Phone: 3(732)988-984059 [place] [address] 08-13-2023 19:00-0500 Systolic blood pressure 130 mm[Hg] Dr. Perfecto Warner Work Phone: 7(347)674-207564 [place] [address] 08-13-2023 17:49-0500 Body height 182.[address] Perfecto Warner Work Phone: 2(015)810-090664 [place] [address] 08-13-2023 17:49-0500 Body mass index (BMI) [Ratio] 26.3 kg/m2 Dr. Perfecto Warner Work Phone: 9(284)937-093359 [place] [address] 08-13-2023 17:49-0500 Body temperature 97.3 [degF] Dr. Perfecto Warner Work Phone: 5(298)896-0035[address] [place] [address] 08-13-2023 17:49-05[address] Body weight [address] Perfecto Warner Work Phone: 3(963)824-005864 [place] [address] 07-13-2023 09:56-0500 Body mass index (BMI) [Ratio] 25.7 kg/m2 Dr. Perfecto Warner Work Phone: 9(525)696-772164 [place] [address] 07-13-2023 09:56-0500 Body temperature 97.1 [degF] Dr. Perfecto Warner Work Phone: 2(594)371-952964 [place] [address] 07-13-2023 09:56-0500 Body weight 85.[address] Perfecto Warner Work Phone: 0(862)725-581464 [place] [address] 07-13-2023 09:56-0500 Diastolic blood pressure 81 mm[Hg] Dr. Perfecto Warner Work Phone: 8(183)522-734264 [place] [address] 07-13-2023 09:56-0500 Heart rate 71 /min Dr. Perfecto Warner Work Phone: 5(905)625-488364 [place] [address] 07-13-2023 09:56-0500 Respiratory rate 16 /min Dr. Perfecto Warner Work Phone: 0(859)135-881964 [place] [address] 07-13-2023 09:56-0500 SaO2% (BldA) [Mass fraction] 98 % Dr. Perfecto Warner Work Phone: 7(647)942-699364 [place] [address] 07-13-2023 09:56-0500 Systolic blood pressure 136 mm[Hg] Dr. Perfecto Warner Work Phone: 5(917)942-000664 [place] [address] 07-09-2023 07:59-0500 Heart rate 65 /min Bull Lam MD Work Phone: [facility] 07-09-2023 07:59-0500 Respiratory rate 14 /min Bull Lam MD Work Phone: [facility] 07-09-2023 07:59-0500 SaO2% (BldA) [Mass fraction] 97 % Bull Lam MD Work Phone: [facility] 07-08-2023 13:19-0500 Body temperature 97.9 [degF] Jesse Avery MD Work Phone: [facility] 07-08-2023 13:19-0500 Body weight 86.18 kg Jesse Avery MD Work Phone: [facility] 07-08-2023 13:19-0500 Diastolic blood pressure 62 mm[Hg] Jesse Avery MD Work Phone: [facility] 07-08-2023 13:19-0500 Heart rate 72 /min Jesse Avery MD Work Phone: [facility] 07-08-2023 13:19-0500 Respiratory rate 16 /min Jesse Avery MD Work Phone: [facility] 07-08-2023 13:19-0500 SaO2% (BldA) [Mass fraction] 98 % Jesse Avery MD Work Phone: [facility] 07-08-2023 13:19-0500 Systolic blood pressure 116 mm[Hg] Jesse Avery MD Work Phone: [facility] 05-08-2023 10:47-0400 Body weight 84.73 kg Yolande Warner MD Work Phone: [facility] 05-08-2023 10:47-0400 Diastolic blood pressure 72 mm[Hg] Yoladne Warner MD Work Phone: [facility] 05-08-2023 10:47-0400 Heart rate 69 /min Yolande Warner MD Work Phone: [facility] 05-08-2023 10:47-0400 Respiratory rate 16 /min Yolande Warner MD Work Phone: [facility] 05-08-2023 10:47-0400 SaO2% (BldA) [Mass fraction] 95 % Yolande Warner MD Work Phone: [facility] 05-08-2023 10:47-0400 Systolic blood pressure 124 mm[Hg] Yolande Warner MD Work Phone: [facility] 04-23-2023 08:45-0400 Heart rate 76 /min Bull Lam MD Work Phone: [facility] 04-23-2023 08:45-0400 Respiratory rate 18 /min Bull Lam MD Work Phone: [facility] 04-23-2023 08:45-0400 SaO2% (BldA) [Mass fraction] 95 % Bull Lam MD Work Phone: [facility] 12-16-2022 12:28-0400 Body temperature 96.91 [degF] Monet Praisler-Wood [employer] PROGRAM MANAGER Work Phone: [facility] 12-16-2022 12:28-0400 Body weight 90.72 kg Monet Praisler-Wood R[employer]GER [employer]IC [employer] PROGRAM MANAGER Work Phone: [facility] 12-16-2022 12:28-0400 Diastolic blood pressure 80 mm[Hg] Monet Praisler-Wood R[employer]GER THIRD.PUBLIC HEALTH PROGRAM MANAGER Work Phone: [facility] 12-16-2022 12:28-0400 Heart rate 78 /min Monet Praisler-Wood R[employer]GER THIRD.PUBLIC HEALTH PROGRAM MANAGER Work Phone: [facility] 12-16-2022 12:28-0400 Respiratory rate 16 /min Monet Praisler-Wood R[employer]GER THIRD.PUBLIC HEALTH PROGRAM MANAGER Work Phone: [facility] 12-16-2022 12:28-0400 SaO2% (BldA) [Mass fraction] 100 % Monet Praisler-Wood R[employer]GER [employer]IRD.PUBLIC HEALTH PROGRAM MANAGER Work Phone: [facility] 12-16-2022 12:28-0400 Systolic blood pressure 128 mm[Hg] Monet Praisler-Wood R[employer]GER [employer]IRD.PUBLIC HEALTH PROGRAM MANAGER Work Phone: [facility] 11-07-2022 07:53-0500 Body weight 87.27 kg Yolande Warner MD Work Phone: [facility] 11-07-2022 07:53-0500 Diastolic blood pressure 64 mm[Hg] Yolande Warner MD Work Phone: [facility] 11-07-2022 07:53-0500 Heart rate 69 /min Yolande Warner MD Work Phone: [facility] 11-07-2022 07:53-0500 Respiratory rate 16 /min Yolande Warner MD Work Phone: [facility] 11-07-2022 07:53-0500 SaO2% (BldA) [Mass fraction] 94 % Yolande Warner MD Work Phone: [facility] 11-07-2022 07:53-0500 Systolic blood pressure 106 mm[Hg] Yolande Warner MD Work Phone: [facility] 10-24-2022 08:26-0500 Body weight 85.82 kg Yolande Warner MD Work Phone: [facility] 10-24-2022 08:26-0500 Diastolic blood pressure 64 mm[Hg] Yolande Warner MD Work Phone: [facility] 10-24-2022 08:26-0500 Heart rate 69 /min Yolande Warner MD Work Phone: [facility] 10-24-2022 08:26-0500 Respiratory rate 16 /min Yolande Warner MD Work Phone: [facility] 10-24-2022 08:26-0500 SaO2% (BldA) [Mass fraction] 99 % Yolande Warner MD Work Phone: [facility] 10-24-2022 08:26-0500 Systolic blood pressure 122 mm[Hg] Yolande Warner MD Work Phone: [facility] 07-15-2022 09:33-0500 Body height 182.[address] Perfecto Warner Work Phone: [facility] 07-15-2022 09:31-0500 Body mass index (BMI) [Ratio] 25.3 kg/m2 Dr. Perfecto Warner Work Phone: [facility] 07-15-2022 09:31-0500 Body temperature 97.9 [degF] Dr. Perfecto Warner Work Phone: [facility] 07-15-2022 09:31-0500 Body weight 84.[address] Perfecto Warner Work Phone: [facility] 07-15-2022 09:31-0500 Diastolic blood pressure 62 mm[Hg] Dr. Perfecto Warner Work Phone: [facility] 07-15-2022 09:31-0500 Heart rate 80 /min Dr. Perfecto Warner Work Phone: [facility] 07-15-2022 09:31-0500 Respiratory rate 18 /min Dr. Perfecto Warner Work Phone: [facility] 07-15-2022 09:31-0500 SaO2% (BldA) [Mass fraction] 99 % Dr. Perfecto Warner Work Phone: [facility] 07-15-2022 09:31-0500 Systolic blood pressure 117 mm[Hg] Dr. Perfecto Warner Work Phone: [facility] 07-11-2022 13:59-0500 Body height 182.9 cm Benny Sánchez PA-C Work Phone: [facility] 07-11-2022 13:59-0500 Body temperature 96.91 [degF] Benny Sánchez PA-C Work Phone: [facility] 07-11-2022 13:59-0500 Body weight 83.92 kg Benny Sánchez PA-C Work Phone: [facility] 07-11-2022 13:59-0500 Diastolic blood pressure 72 mm[Hg] Benny Sánchez PA-C Work Phone: [facility] 07-11-2022 13:59-0500 Heart rate 96 /min Benny Sánchez PA-C Work Phone: [facility] 07-11-2022 13:59-0500 Respiratory rate 14 /min Benny Sánchez PA-C Work Phone: [facility] 07-11-2022 13:59-0500 SaO2% (BldA) [Mass fraction] 96 % Benny Sánchez PA-C Work Phone: [facility] 07-11-2022 13:59-0500 Systolic blood pressure 138 mm[Hg] Benny Sánchez PA-C Work Phone: [facility] 07-10-2022 14:21-0500 Body weight 84.82 kg Yolande Warner MD Work Phone: [facility] 07-10-2022 14:21-0500 Diastolic blood pressure 68 mm[Hg] Yolande Warner MD Work Phone: [facility] 07-10-2022 14:21-0500 Heart rate 86 /min Yolande Warner MD Work Phone: [facility] 07-10-2022 14:21-0500 Respiratory rate 18 /min Yolande Warner MD Work Phone: [facility] 07-10-2022 14:21-0500 SaO2% (BldA) [Mass fraction] 97 % Yolande Warner MD Work Phone: [facility] 07-10-2022 14:21-0500 Systolic blood pressure 138 mm[Hg] Yolande Warner MD Work Phone: [facility] 07-03-2022 21:58-0400 Body height 182.[address] Perfecto Warner Work Phone: [facility] Work Phone: 07-03-2022 21:58-0400 Body mass index (BMI) [Ratio] 25 kg/m2 Dr. Perfecto Warner Work Phone: 8(793)008-481264 [place] [address] 07-03-2022 21:58-0400 Body temperature 96.3 [degF] Dr. Perfecto Warner Work Phone: 5(545)281-704764 [place] [address] 07-03-2022 21:58-0400 Body weight 83.[address] Perfecto Warner Work Phone: 9(188)723-274664 [place] [address] 07-03-2022 21:58-0400 Diastolic blood pressure 103 mm[Hg] Dr. Perfecto Warner Work Phone: 1(566)987-676964 [place] [address] 07-03-2022 21:58-0400 Heart rate 95 /min Dr. Perfecto Warner Work Phone: 0(869)807-778764 [place] [address] 07-03-2022 21:58-0400 Respiratory rate 18 /min Dr. Perfecto Warner Work Phone: 9(975)798-567664 [place] [address] 07-03-2022 21:58-0400 SaO2% (BldA) [Mass fraction] 98 % Dr. Perfecto Warner Work Phone: 7(585)628-803764 [place] [address] 07-03-2022 21:58-0400 Systolic blood pressure 129 mm[Hg] Dr. Perfecto Warner Work Phone: 5(868)676-882264 [place] [address] 06-26-2022 13:35-0400 Body temperature 98.2 [degF] Dr. Perfecto Warner Work Phone: 0(076)720-620064 [place] [address] 06-26-2022 13:35-0400 Diastolic blood pressure 61 mm[Hg] Dr. Perfecto Warner Work Phone: 8(068)865-484859 [place] [address] 06-26-2022 13:35-0400 Heart rate 73 /min Dr. Perfecto Warner Work Phone: 7(715)474-333164 [place] [address] 06-26-2022 13:35-0400 Respiratory rate 16 /min Dr. Perfecto Warner Work Phone: 2(695)694-296459 [place] [address] 06-26-2022 13:35-0400 SaO2% (BldA) [Mass fraction] 95 % Dr. Perfecto Warner Work Phone: 3(616)428-442259 [place] [address] 06-26-2022 13:35-0400 Systolic blood pressure 112 mm[Hg] Dr. Perfecto Warner Work Phone: 4(348)954-633064 [place] [address] 06-25-2022 20:10-0400 Inhaled oxygen flow rate 2 L/min Dr. Perfecto Warner Work Phone: 7(917)045-556559 [place] [address] 06-25-2022 16:10-0400 Body height 182.[address] Perfecto Warner Work Phone: 5(312)395-858259 [place] [address] Work Phone: 06-25-2022 16:10-0400 Body mass index (BMI) [Ratio] 25.1 kg/m2 Dr. Perfecto Warner Work Phone: 7(266)723-414859 [place] [address] 06-25-2022 16:10-0400 Body weight [address] Perfecto Warner Work Phone: 9(754)957-714059 [place] [address] 06-15-2022 15:17-0400 Body height 182.[address] Perfecto Warner Work Phone: 4(468)645-349859 [place] [address] Work Phone: 06-15-2022 15:17-0400 Body mass index (BMI) [Ratio] 25.4 kg/m2 Dr. Perfecto Warner Work Phone: 4(933)694-082159 [place] [address] 06-15-2022 15:17-0400 Body temperature 96.5 [degF] Dr. Perfecto Warner Work Phone: 1(972)753-506759 [place] [address] 06-15-2022 15:17-0400 Body weight 85.[address] Perfecto Warner Work Phone: 0(484)493-951864 [place] [address] 06-15-2022 15:17-0400 Diastolic blood pressure 76 mm[Hg] Dr. Perefcto Warner Work Phone: 7(531)675-373159 [place] [address] 06-15-2022 15:17-0400 Heart rate 92 /min Dr. Perfecto Warner Work Phone: 6(570)976-734164 [place] [address] 06-15-2022 15:17-0400 Respiratory rate 16 /min Dr. Perfecto Warner Work Phone: 6(468)301-158664 [place] [address] 06-15-2022 15:17-0400 SaO2% (BldA) [Mass fraction] 96 % Dr. Perfecto Warner Work Phone: 7(210)607-851864 [place] [address] 06-15-2022 15:17-0400 Systolic blood pressure 135 mm[Hg] Dr. Perfecto Warner Work Phone: 4(120)441-389964 [place] [address] 06-11-2022 08:28-0400 Body mass index (BMI) [Ratio] 25 kg/m2 Dr. Perfecto Warner Work Phone: 1(663)581-904664 [place] [address] 06-11-2022 08:28-0400 Body temperature 96.6 [degF] Dr. Perfecto Warner Work Phone: 2(219)353-061864 [place] [address] 06-11-2022 08:28-0400 Body weight 83.[address] Perfecto Warner Work Phone: 8(445)588-236964 [place] [address] 06-11-2022 08:28-0400 Diastolic blood pressure 68 mm[Hg] Dr. Perfecto Warner Work Phone: 1(945)181-392464 [place] [address] 06-11-2022 08:28-0400 Heart rate 69 /min Dr. Perfecto Warner Work Phone: 4(737)070-948464 [place] [address] 06-11-2022 08:28-0400 Respiratory rate 16 /min Dr. Perfecto Warner Work Phone: 4(414)512-472764 [place] [address] 06-11-2022 08:28-0400 SaO2% (BldA) [Mass fraction] 97 % Dr. Perfecto Warner Work Phone: 6(530)046-412164 [place] [address] 06-11-2022 08:28-0400 Systolic blood pressure 110 mm[Hg] Dr. Perfecto Warner Work Phone: 7(298)062-998164 [place] [address] 06-04-2022 08:29-0400 Body mass index (BMI) [Ratio] 25 kg/m2 Dr. Perfecto Wraner Work Phone: 7(490)749-446559 [place] [address] 06-04-2022 08:29-0400 Body temperature 97.9 [degF] Dr. Perfecto Warner Work Phone: 7(254)232-877364 [place] [address] 06-04-2022 08:29-0400 Body weight 83.[address] Perfecto Warner Work Phone: 6(525)968-384359 [place] [address] 06-04-2022 08:29-0400 Diastolic blood pressure 79 mm[Hg] Dr. Perfecto Warner Work Phone: 5(652)866-382459 [place] [address] 06-04-2022 08:29-0400 Heart rate 70 /min Dr. Perfecto Warner Work Phone: 7(481)356-884564 [place] [address] 06-04-2022 08:29-0400 Respiratory rate 16 /min Dr. Perfecto Warner Work Phone: 5(009)013-599464 [place] [address] 06-04-2022 08:29-0400 SaO2% (BldA) [Mass fraction] 96 % Dr. Perfecto Warner Work Phone: 5(489)615-536364 [place] [address] 06-04-2022 08:29-0400 Systolic blood pressure 129 mm[Hg] Dr. Perfecto Warner Work Phone: 3(571)722-517864 [place] [address] 05-28-2022 08:20-0400 Body mass index (BMI) [Ratio] 24.7 kg/m2 Dr. Perfecto Warner Work Phone: [facility] Work Phone: 05-28-2022 08:20-0400 Body temperature 97.6 [degF] Dr. Perfecto Warner Work Phone: [facility] Work Phone: 05-28-2022 08:20-0400 Body weight 82.[address] Perfecto Warner Work Phone: [facility] Work Phone: 05-28-2022 08:20-0400 Diastolic blood pressure 67 mm[Hg] Dr. Perfecto Warner Work Phone: [facility] Work Phone: 05-28-2022 08:20-0400 Heart rate 69 /min Dr. Perfecto Warner Work Phone: [facility] Work Phone: 05-28-2022 08:20-0400 Respiratory rate 16 /min Dr. Perfecto Warner Work Phone: [facility] Work Phone: 05-28-2022 08:20-0400 SaO2% (BldA) [Mass fraction] 98 % Dr. Perfecto Warner Work Phone: [facility] Work Phone: 05-28-2022 08:20-0400 Systolic blood pressure 103 mm[Hg] Dr. Perfecto Warner Work Phone: [facility] Work Phone: 05-24-2022 01:37-0400 Body height 182.[address] Perfecto Warner Work Phone: [facility] Work Phone: 05-24-2022 01:37-0400 Body mass index (BMI) [Ratio] 24.7 kg/m2 Dr. Perfecto Warner Work Phone: [facility] Work Phone: 05-24-2022 01:37-0400 Body temperature 97.9 [degF] Dr. Perfecto Warner Work Phone: [facility] Work Phone: 05-24-2022 01:37-0400 Body weight 82.[address] Perfecto Warner Work Phone: [facility] Work Phone: 05-24-2022 01:37-0400 Diastolic blood pressure 77 mm[Hg] Dr. Perfecto Warner Work Phone: [facility] Work Phone: 05-24-2022 01:37-0400 Heart rate 64 /min Dr. Perfecto Warner Work Phone: [facility] Work Phone: 05-24-2022 01:37-0400 Respiratory rate 18 /min Dr. Perfecto Warner Work Phone: [facility] Work Phone: 05-24-2022 01:37-0400 SaO2% (BldA) [Mass fraction] 100 % Dr. Perfecto Warner Work Phone: [facility] Work Phone: 05-24-2022 01:37-0400 Systolic blood pressure 151 mm[Hg] Dr. Perfecto Warner Work Phone: [facility] Work Phone: 05-20-2022 08:12-0400 Body mass index (BMI) [Ratio] 25.1 kg/m2 Dr. Perfecto Warner Work Phone: [facility] Work Phone: 05-20-2022 08:12-0400 Body temperature 97.6 [degF] Dr. Perfecto Warner Work Phone: [facility] Work Phone: 05-20-2022 08:12-0400 Body weight 83.[address] Perfecto Warner Work Phone: [facility] Work Phone: 05-20-2022 08:12-0400 Diastolic blood pressure 69 mm[Hg] Dr. Perfecto Warner Work Phone: [facility] Work Phone: 05-20-2022 08:12-0400 Heart rate 67 /min Dr. Perfecto Warner Work Phone: [facility] Work Phone: 05-20-2022 08:12-0400 Respiratory rate 16 /min Dr. Perfecto Warner Work Phone: [facility] Work Phone: 05-20-2022 08:12-0400 SaO2% (BldA) [Mass fraction] 98 % Dr. Perfecto Warner Work Phone: [facility] Work Phone: 05-20-2022 08:12-0400 Systolic blood pressure 120 mm[Hg] Dr. Perfecto Warner Work Phone: [facility] Work Phone: 05-14-2022 08:22-0400 Body mass index (BMI) [Ratio] 25.3 kg/m2 Dr. Perfecto Warner Work Phone: [facility] Work Phone: 05-14-2022 08:22-0400 Body temperature 97.6 [degF] Dr. Perfecto Warner Work Phone: [facility] Work Phone: 05-14-2022 08:22-0400 Body weight 84.[address] Perfecto Warner Work Phone: [facility] Work Phone: 05-14-2022 08:22-0400 Diastolic blood pressure 75 mm[Hg] Dr. Perfecto Warner Work Phone: [facility] Work Phone: 05-14-2022 08:22-0400 Heart rate 65 /min Dr. Perfecto Warner Work Phone: [facility] Work Phone: 05-14-2022 08:22-0400 Respiratory rate 16 /min Dr. Perfecto Warner Work Phone: [facility] Work Phone: 05-14-2022 08:22-0400 SaO2% (BldA) [Mass fraction] 97 % Dr. Perfecto Warner Work Phone: [facility] Work Phone: 05-14-2022 08:22-0400 Systolic blood pressure 121 mm[Hg] Dr. Perfecto Warner Work Phone: [facility] Work Phone: 05-06-2022 08:53-0400 Body mass index (BMI) [Ratio] 25.4 kg/m2 Dr. Perfecto Warner Work Phone: [facility] Work Phone: 05-06-2022 08:53-0400 Body temperature 97.2 [degF] Dr. Perfecto Warner Work Phone: [facility] Work Phone: 05-06-2022 08:53-0400 Body weight 85.[address] Perfecto Warner Work Phone: [facility] Work Phone: 05-06-2022 08:53-0400 Diastolic blood pressure 79 mm[Hg] Dr. Perfecto Warner Work Phone: [facility] Work Phone: 05-06-2022 08:53-0400 Heart rate 64 /min Dr. Perfecto Warner Work Phone: [facility] Work Phone: 05-06-2022 08:53-0400 Respiratory rate 16 /min Dr. Perfecto Warner Work Phone: [facility] Work Phone: 05-06-2022 08:53-0400 SaO2% (BldA) [Mass fraction] 97 % Dr. Perfecto Warner Work Phone: [facility] Work Phone: 05-06-2022 08:53-0400 Systolic blood pressure 144 mm[Hg] Dr. Perfecto Warner Work Phone: [facility] Work Phone: 04-23-2022 08:30-0400 Body weight 83.92 kg Yolande Warner MD Work Phone: [facility] 04-23-2022 08:30-0400 Diastolic blood pressure 78 mm[Hg] Yolande Warner MD Work Phone: [facility] 04-23-2022 08:30-0400 Heart rate 72 /min Yolande Warner MD Work Phone: [facility] 04-23-2022 08:30-0400 Respiratory rate 14 /min Yolande Warner MD Work Phone: [facility] 04-23-2022 08:30-0400 Systolic blood pressure 126 mm[Hg] Yolande Warner MD Work Phone: [facility] 04-16-2022 13:05-0400 Body temperature 97.3 [degF] Dr. Perfecto Warner Work Phone: [facility] Work Phone: 04-16-2022 13:05-0400 Heart rate 64 /min Dr. Perfecto Warner Work Phone: [facility] Work Phone: 04-16-2022 13:05-0400 Respiratory rate 16 /min Dr. Perfecto Warner Work Phone: [facility] Work Phone: 04-16-2022 13:05-0400 SaO2% (BldA) [Mass fraction] 99 % Dr. Perfecto Warner Work Phone: [facility] Work Phone: 04-16-2022 13:00-0400 Diastolic blood pressure 75 mm[Hg] Dr. Perfecto Warner Work Phone: [facility] Work Phone: 04-16-2022 13:00-0400 Systolic blood pressure 125 mm[Hg] Dr. Perfecto Warner Work Phone: [facility] Work Phone: 04-16-2022 09:50-0400 Body height 182.[address] Perfecto Warner Work Phone: [facility] Work Phone: 04-16-2022 09:50-0400 Body mass index (BMI) [Ratio] 24.9 kg/m2 Dr. Perfecto Warner Work Phone: [facility] Work Phone: 04-16-2022 09:50-0400 Body weight 83.[address] Perfecto Warner Work Phone: [facility] Work Phone: 03-26-2022 11:29-0400 Body temperature 96.91 [degF] Kamlesh Alvarado APRN.[employer]IC [employer] PROGRAM MANAGER Work Phone: [facility] 03-26-2022 11:29-0400 Body weight 86.64 kg Kamlesh Alvarado [employer] PROGRAM MANAGER Work Phone: [facility] 03-26-2022 11:29-0400 Diastolic blood pressure 82 mm[Hg] Kamlesh Alvarado APRN.PUBLIC HE[employer] PROGRAM MANAGER Work Phone: [facility] 03-26-2022 11:29-0400 Heart rate 68 /min Kamlesh Alvarado [employer] PROGRAM MANAGER Work Phone: [facility] 03-26-2022 11:29-0400 Respiratory rate 16 /min Kamlesh Alvarado APRN.PUBLIC HE[employer] PROGRAM MANAGER Work Phone: [facility] 03-26-2022 11:29-0400 SaO2% (BldA) [Mass fraction] 97 % Kamlesh Alvarado APRN.PUBLIC HE[employer] PROGRAM MANAGER Work Phone: [facility] 03-26-2022 11:29-0400 Systolic blood pressure 140 mm[Hg] Kamlesh Alvarado APRN.PUBLIC HE[employer] PROGRAM MANAGER Work Phone: [facility] 03-06-2022 09:05-0400 Body mass index (BMI) [Ratio] 25.9 kg/m2 Dr. Perfecto Warner Work Phone: [facility] Work Phone: 03-06-2022 09:05-0400 Body temperature 97.4 [degF] Dr. Perfecto Warner Work Phone: [facility] Work Phone: 03-06-2022 09:05-0400 Body weight 86.[address] Perfecto Warner Work Phone: [facility] Work Phone: 03-06-2022 09:05-0400 Diastolic blood pressure 72 mm[Hg] Dr. Perfecto Warner Work Phone: [facility] Work Phone: 03-06-2022 09:05-0400 Heart rate 79 /min Dr. Perfecto Warner Work Phone: [facility] Work Phone: 03-06-2022 09:05-0400 Respiratory rate 16 /min Dr. Perfecto Warner Work Phone: [facility] Work Phone: 03-06-2022 09:05-0400 SaO2% (BldA) [Mass fraction] 96 % Dr. Perfecto Warner Work Phone: [facility] Work Phone: 03-06-2022 09:05-0400 Systolic blood pressure 131 mm[Hg] Dr. Perfecto Warner Work Phone: [facility] Work Phone: 01-30-2022 13:39-0400 Body height 182.[address] Perfecto Warner Work Phone: [facility] Work Phone: 01-30-2022 13:39-0400 Body mass index (BMI) [Ratio] 26.2 kg/m2 Dr. Perfecto Warner Work Phone: [facility] Work Phone: 01-30-2022 13:39-0400 Body temperature 97.3 [degF] Dr. Perfecto Warner Work Phone: [facility] Work Phone: 01-30-2022 13:39-0400 Body weight 87.[address] Perfecto Warner Work Phone: [facility] Work Phone: 01-30-2022 13:39-0400 Diastolic blood pressure 81 mm[Hg] Dr. Perfecto Warner Work Phone: [facility] Work Phone: 01-30-2022 13:39-0400 Heart rate 68 /min Dr. Perfecto Warner Work Phone: [facility] Work Phone: 01-30-2022 13:39-0400 Respiratory rate 16 /min Dr. Perfecto Warner Work Phone: [facility] Work Phone: 01-30-2022 13:39-0400 SaO2% (BldA) [Mass fraction] 96 % Dr. Perfecto Warner Work Phone: [facility] Work Phone: 01-30-2022 13:39-0400 Systolic blood pressure 128 mm[Hg] Dr. Perfecto Warner Work Phone: [facility] Work Phone: 12-24-2021 08:15-0400 Body height 182.9 cm Benny Sánchez PA-C Work Phone: [facility] 12-24-2021 08:15-0400 Body temperature 96.91 [degF] Benny Sánchez PA-C Work Phone: [facility] 12-24-2021 08:15-0400 Body weight 88.91 kg Benny Sánchez PA-C Work Phone: [facility] 12-24-2021 08:15-0400 Diastolic blood pressure 70 mm[Hg] Benny Sánchez PA-C Work Phone: [facility] 12-24-2021 08:15-0400 Heart rate 70 /min Benny Sánchez PA-C Work Phone: [facility] 12-24-2021 08:15-0400 Respiratory rate 14 /min Benny Sánchez PA-C Work Phone: [facility] 12-24-2021 08:15-0400 SaO2% (BldA) [Mass fraction] 96 % Benny Sánchez PA-C Work Phone: [facility] 12-24-2021 08:15-0400 Systolic blood pressure 118 mm[Hg] Benny Sánchez PA-C Work Phone: [facility] 11-27-2021 09:37-0400 Body temperature 96.4 [degF] Haydee Podlogar [employer] MANAGER Work Phone: [facility] 11-27-2021 09:37-0400 Body weight 89.09 kg Haydee Podlogar [employer] PROGRAM MANAGER Work Phone: [facility] 11-27-2021 09:37-0400 Diastolic blood pressure 74 mm[Hg] Haydee Podlogar [employer] PROGRAM MANAGER Work Phone: [facility] 11-27-2021 09:37-0400 Heart rate 75 /min Haydee Podlogar [employer] PROGRAM MANAGER Work Phone: [facility] 11-27-2021 09:37-0400 Respiratory rate 18 /min Haydee Podlogar [employer] PROGRAM MANAGER Work Phone: [facility] 11-27-2021 09:37-0400 SaO2% (BldA) [Mass fraction] 98 % Haydee Podlogar [employer] PROGRAM MANAGER Work Phone: [facility] 11-27-2021 09:37-0400 Systolic blood pressure 130 mm[Hg] Haydee Podlogar [employer]GER [employer] PROGRAM MANAGER Work Phone: [facility] Encounters Encounter Date Encounter Type Care Provider Facility Start: 02-25-2025 End: 02-25-2025 Patient encounter procedure Anthony HERRERA Work Phone: [facility] Comment on above: Rash (Primary Dx) Start: 02-25-2025 End: 02-25-2025 ambulatory ANTHONY HERNANDEZ Facility:[facility] Start: 02-21-2025 End: 02-21-2025 Patient encounter procedure Lucinda Kohler Work Phone: Podiatry Comment on above: Onychomycosis (Prima ry Dx); Pain in toe of left foot; Pain in toe of right foot; Diminished pulses in lower extremity; Diabetic polyneuropathy associated with type 2 diabetes mellitus (HCC) Start: 02-21-2025 End: 02-21-2025 ambulatory YOLANDE WARNER Facility:[facility] Start: 02-13-2025 End: 02-13-[address] Jose You DO -[facility] Work Phone: Start: 02-13-2025 End: 02-13-[address] Perfecto Warner MD Work Phone: [facility] Work Phone: Start: 02-10-2025 End: 02-10-[address] Perfecto Warner MD Work Phone: [facility] Work Phone: Start: 02-10-2025 End: 02-10-[address] Jose [facility] Work Phone: Start: 02-10-2025 End: 02-10-2025 ambulatory Perfecto Warner Facility:[facility] Start: 02-07-2025 End: 02-07-2025 Subsequent hospital visit by physician [facility] Work Phone: Radiology Comment on above: Excessive gas [R14.3 ] Start: 02-07-2025 End: 02-07-2025 ambulatory YOLANDE WARNER Facility:[facility] Start: 02-07-2025 End: 02-07-2025 Patient encounter procedure Kamla Crowder PA-C Work Phone: [facility] [place] Comment on above: Excessive gas (Prima ry Dx); Bloating; Incomplete passage of stool Start: 02-07-2025 End: 02-07-2025 ambulatory YOLANDE WARNER Facility:[facility] Start: 01-23-2025 End: 01-23-2025 Emergency department patient visit Dr. Perfecto Warner MD Work Phone: -Emergency Department Work Phone: Start: 12-20-2024 End: 12-20-2024 Patient encounter procedure Lucinda Jose F Work Phone: Podiatry Comment on above: Onychomycosis (Prima ry Dx); Pain in toe of left foot; Pain in toe of right foot; Diminished pulses in lower extremity; Diabetic polyneuropathy associated with type 2 diabetes mellitus (HCC) Start: 12-20-2024 End: 12-20-2024 ambulatory YOLANDE WARNER Facility:[facility] Start: 11-25-2024 End: 11-25-[address] Dandy Dallas MD [facility] Work Phone: Start: 11-25-2024 End: 11-25-2024 ambulatory Dandy Dallas Facility[place] Start: 11-15-2024 End: 11-15-2024 ambulatory YOLANDE WARNER Facility:[facility] Start: 11-15-2024 End: 11-15-2024 Patient encounter procedure Dianna Valencia MD Work Phone: Vascular Medicine Comment on above: Atherosclerosis of a emily (HCC) (Primary Dx); Hyperlipidemia, unspecified hyperlipidemia type; Essential hypertension; History of diabetes mellitus Start: 11-10-2024 End: 11-10-[address] Perfecto Warner MD Work Phone: [facility] Work Phone: Start: 11-10-2024 End: 11-10-[address] Dandy Dallas MD -[facility] Work Phone: Start: 11-10-2024 End: 11-10-2024 ambulatory Dandy Dallas Facility:[facility] Start: 11-08-2024 End: 01-08-2025 Follow-up encounter Yolande Warner MD Work Phone: [facility] Start: 11-08-2024 End: 11-08-2024 ambulatory YOLANDE WARNER Facility:[facility] Start: 11-08-2024 End: 11-08-2024 Patient encounter procedure Yolande Warner MD Work Phone: [facility] Comment on above: Type 2 diabetes james itus without complication, without long- term current use of insulin (HCC) (Primary Dx); Diabetic polyneuropathy associated with type 2 diabetes mellitus (HCC); Hyperlipidemia, unspecified hyperlipidemia type; Benign prostatic hyperplasia with nocturia; Spinal stenosis, lumbar region, without neurogenic claudication; History of prostate cancer Start: 11-04-2024 End: 11-04-2024 ambulatory YOLANDE WARNER Facility:[facility] Start: 10-14-2024 End: 10-15-2024 Refill Yolande Warner MD Work Phone: [facility] Comment on above: Refill Request Start: 10-08-2024 End: 10-08-2024 ambulatory YOLANDE WARNER Facility:[facility] Start: 10-08-2024 End: 10-08-2024 Patient encounter procedure Kamlesh Alvarado APRN.CNP Work Phone: [facility] Comment on above: Balanitis (Primary D x) Start: 10-06-2024 End: 10-06-2024 ambulatory YOLANDE WARNER Facility:[facility] Start: 10-06-2024 End: 10-06-2024 Patient encounter procedure Lucinda Kohler Work Phone: Podiatry Comment on above: Onychomycosis (Prima ry Dx); Pain in toe of left foot; Pain in toe of right foot; Diabetic polyneuropathy associated with type 2 diabetes mellitus (HCC) Start: 09-29-2024 End: 09-29-2024 ambulatory YOLANDE WARNER Facility:[facility] Start: 09-29-2024 End: 09-29-2024 Patient encounter procedure Monet Proctor APRN.CNP Work Phone: [facility] Comment on above: Sinobronchitis (Prim marvin Dx) Start: 09-08-2024 End: 09-08-2024 Telephone encounter Yolande Warner MD Work Phone: Family Medicine [place] Comment on above: Fax Pts A1C Start: 09-08-2024 End: 09-08-[address] 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); Arthritis of both hands Start: 08-25-2024 End: 08-25-2024 ambulatory YOLANDE WARNER Facility:[facility] Start: 08-25-2024 End: 08-25-2024 Office outpatient visit 25 minutes Jesse Avery MD Work Phone: [facility] Comment on above: Acute conjunctivitis of right eye, unspecified acute conjunctivitis type (Primary Dx) Start: 08-01-2024 End: 08-01-2024 ambulatory YOLANDE WARNER Facility:[facility] Start: 08-01-2024 End: 08-01-2024 Patient encounter procedure Lucinda Kohler Work Phone: Podiatry Comment on above: Onychomycosis (Prima ry Dx); Pain in toe of left foot; Pain in toe of right foot; Diabetic polyneuropathy associated with type 2 diabetes mellitus (HCC) Start: 07-26-2024 End: 07-26-2024 ambulatory YOLANDE WARNER Facility:[facility] Start: 07-26-2024 End: 07-26-2024 Patient encounter procedure Kamla Crowder PA-C Work Phone: G[facility] [place] Comment on above: Constipation, unspec ified constipation type (Primary Dx) Start: 07-25-2024 End: 07-25-2024 ambulatory Deven Abraham Facility:[facility] Start: 07-25-2024 End: 07-25-[address] Deven Abraham MD -Physical Therapy Work Phone: Start: 07-18-2024 End: 07-18-2024 ambulatory Perfecto Warner Facility:[facility] Start: 07-15-2024 End: 07-15-2024 ambulatory Perfecto Warner Facility:[facility] Start: 07-12-2024 End: 12-05-2024 Telephone encounter Yolande Warner MD Work Phone: [facility] Comment on above: Results Start: 07-11-2024 End: 07-14-2024 Refill Dianna Valencia MD Work Phone: Vascular Medicine Comment on above: Med Change Request Start: 07-11-2024 End: 07-12-2024 Telephone encounter Yolande Warner MD Work Phone: [facility] Comment on above: Results Start: 07-08-2024 End: 07-08-2024 Subsequent hospital visit by physician Shabnam [facility] Work Phone: Radiology Comment on above: Arthritis of both jackson nds [M19.041, M19.042] Start: 07-08-2024 End: 07-08-2024 Patient encounter procedure Yolande Warner MD Work Phone: [facility] Comment on above: Arthritis of both jackson nds (Primary Dx); Fall in home, initial encounter; Injury of right elbow, initial encounter; Abrasion of right elbow, initial encounter; Injury of head, initial encounter Start: 07-08-2024 End: 07-08-2024 ambulatory YOLANDE WARNER Facility:[facility] Start: 06-25-2024 End: 06-25-2024 Subsequent hospital visit by physician Shabnam [facility] Work Phone: Radiology Comment on above: Persistent cough for 3 weeks or longer [R05.3] Start: 06-25-2024 End: 06-25-2024 Patient encounter procedure Yolande Warner MD Work Phone: [facility] Comment on above: Persistent cough for 3 weeks or longer (Primary Dx) Start: 06-25-2024 End: 06-25-2024 ambulatory YOLANDE WARNER Facility:[facility] Start: 06-06-2024 End: 06-06-2024 Patient encounter procedure Devora Borja APRN.PUBLIC HEALTH PROGRAM MANAGER Work Phone: [facility] Comment on above: Bacterial conjunctiv itis (Primary Dx); URI, acute Start: 06-06-2024 End: 06-06-2024 ambulatory YOLANDE WARNER Facility:[facility] Start: 06-04-2024 End: 06-04-2024 ambulatory YOLANDE WARNER Facility:[facility] Start: 06-04-2024 End: 06-04-2024 Patient encounter procedure Gloria Carver APRN.PUBLIC HEALTH PROGRAM MANAGER Work Phone: [facility] Comment on above: Bacterial conjunctiv itis (Primary Dx); URI, acute Start: 05-31-2024 End: 06-01-2024 Telephone encounter Yolande Warner MD Work Phone: [facility] Comment on above: question on blood sotomayor gar Start: 05-27-2024 End: 05-27-2024 Telephone encounter Yolande Warner MD Work Phone: [facility] Comment on above: Orders Start: 05-26-2024 End: 05-26-2024 ambulatory YOLANDE WARNER Facility:[facility] Start: 05-17-2024 End: 05-17-2024 Patient encounter procedure Dianna Valencia MD Work Phone: Vascular Medicine Comment on above: Atherosclerosis of a emily (HCC) (Primary Dx); Hyperlipidemia, unspecified hyperlipidemia type; Essential hypertension; History of diabetes mellitus Start: 05-17-2024 End: 05-17-2024 ambulatory YOLANDE WARNER Facility:[facility] Start: 05-10-2024 End: 05-10-2024 Patient encounter procedure Yolande Warner MD Work Phone: [facility] [place] Comment on above: Controlled type 2 di abetes mellitus without complication, without long-term current use of insulin (HCC) (Primary Dx); Hyperlipidemia, unspecified hyperlipidemia type; Prostate cancer (HCC); Benign prostatic hyperplasia with nocturia; Lumbar spondylosis; Lumbar radiculopathy; Unsteady gait when walking; Encounter for immunization Start: 05-10-2024 End: 05-10-2024 ambulatory YOLANDE WARNER Facility:[facility] Start: 05-09-2024 End: 05-09-2024 ambulatory YOLANDE WARNER Facility:[facility] Start: 04-11-2024 Refill Yolande Warner MD Work Phone: [facility] Comment on above: Refill Request Start: 03-24-2024 End: 03-24-2024 ambulatory YOLANDE WARNER Facility:[facility] Start: 03-24-2024 End: 03-24-2024 Patient encounter procedure Lucinda Jose F Work Phone: Podiatry Comment on above: Onychomycosis (Prima ry Dx); Pain in toe of left foot; Pain in toe of right foot; Diabetic polyneuropathy associated with type 2 diabetes mellitus (HCC) Start: 03-08-2024 Telephone encounter Perfecto Warner MD Work Phone: [facility] [place] Comment on above: Results Start: 03-07-2024 End: 03-07-2024 ambulatory YOLANDE WARNER Facility:[facility] Start: 03-07-2024 End: 03-07-2024 Subsequent hospital visit by physician [facility] Work Phone: Radiology Comment on above: Ectatic abdominal ao rta (HCC) [I77.811] Start: 01-26-2024 Telephone encounter Bull Lam MD Work Phone: [facility] [place] Comment on above: Patient Update; Appo intment Start: 01-22-2024 End: 01-22-2024 Patient encounter procedure Lucinda Kohler Work Phone: Podiatry Comment on above: Onychomycosis (Prima ry Dx); Pain in toe of left foot; Pain in toe of right foot; Diabetic polyneuropathy associated with type 2 diabetes mellitus (HCC) Start: 01-07-2024 End: 01-07-2024 Patient encounter procedure Bull Lam MD Work Phone: [facility] Comment on above: 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 (Primary Dx); Lumbar radiculopathy; Lumbar spondylosis Spinal stenosis, lum bar region, with neurogenic claudication (Primary Dx); Lumbar radiculopathy Start: 01-07-2024 Telephone encounter Bull Lam MD Work Phone: [facility] Comment on above: Injections Patient Update Start: 01-07-2024 End: 01-07-2024 ambulatory YOLANDE WARNER Facility:[facility] Start: 12-30-2023 End: 12-30-2023 ambulatory BULL LAM Facility:[facility] Start: 11-19-2023 End: 11-19-2023 Patient encounter procedure Lucinda Kohler Work Phone: Podiatry Comment on above: Onychomycosis (Prima ry Dx); Pain in toe of left foot; Pain in toe of right foot; Diabetic polyneuropathy associated with type 2 diabetes mellitus (HCC) Start: 11-09-2023 Telephone encounter Perfecto Warner MD Work Phone: [facility] Comment on above: Patient Question Start: 11-06-2023 End: 11-06-2023 Patient encounter procedure Yolande Warner MD Work Phone: [facility] [place] Comment on above: Controlled type 2 di abetes mellitus without complication, without long-term current use of insulin (HCC) (Primary Dx); Diabetic polyneuropathy associated with type 2 diabetes mellitus (HCC); Prostate cancer (HCC); Lumbar spondylosis; Lumbar radiculopathy; Ectatic abdominal aorta (HCC); Benign prostatic hyperplasia with nocturia; Hyperlipidemia, unspecified hyperlipidemia type Start: 11-05-2023 Telephone encounter Perfecto Warner MD Work Phone: [facility] Comment on above: Results Start: 11-05-2023 End: 11-05-2023 Office outpatient visit 25 minutes Cristal Caballero APRN.PUBLIC HEALTH PROGRAM MANAGER Work Phone: [facility] Comment on above: Lumbar spondylosis ( Primary Dx); Spinal stenosis, lumbar region, without neurogenic claudication; Chronic low back pain without sciatica, unspecified back pain laterality; Spinal stenosis of lumbar region with neurogenic claudication Start: 10-12-2023 Refill Yolande Warner MD Work Phone: [facility] Comment on above: Refill Request Start: 10-09-2023 End: 10-09-[address] Perfecto Warner Work Phone: [facility] Work Phone: Start: 10-09-2023 End: 10-09-[address] Perfecto Warner Work Phone: [facility]-Laboratory, Specimen Work Phone: Start: 10-08-2023 End: 10-09-[address] PARISH LUNDBERG MD Facility:B Start: 08-22-2023 End: 08-22-2023 Emergency department patient visit Dr. Perfecto Warner Work Phone: [facility]-Emergency Department Work Phone: Start: 08-13-2023 End: 08-13-2023 Emergency department patient visit Dr. Perfecto Warner Work Phone: [facility]-Emergency Department Work Phone: Start: 08-10-2023 Orders Only Bull Lam MD Work Phone: [facility] [place] Comment on above: Lumbar spondylosis ( Primary Dx) Start: 08-07-2023 Telephone encounter Bull Lam MD Work Phone: [facility] Comment on above: Injection Questions Start: 07-31-2023 Telephone encounter Perfecto Warner MD Work Phone: [facility] Comment on above: Results Start: 07-16-2023 End: 07-16-2023 Patient encounter procedure Lucinda Kohler Work Phone: Podiatry Comment on above: Onychomycosis (Prima ry Dx); Pain in toe of left foot; Pain in toe of right foot; Diabetic polyneuropathy associated with type 2 diabetes mellitus (HCC) Start: 07-13-2023 End: 07-13-[address] Perfecto Warner Work Phone: [facility] Department Work Phone: Start: 07-10-[address] Mukund Warner Work Phone: [facility]-Radiation Oncology Start: 07-09-2023 End: 07-09-2023 Patient encounter procedure Bull Lam MD Work Phone: [facility] Comment on above: Lumbar spondylosis ( Primary Dx); Spinal stenosis, lumbar region, without neurogenic claudication; Lumbar radiculopathy Start: 07-08-2023 End: 07-08-2023 Patient encounter procedure Jesse Avery MD Work Phone: [place] [facility] Emergency Department Comment on above: Hordeolum externum o f right lower eyelid (Primary Dx) Start: 06-05-2023 End: 06-05-2023 ambulatory Padma Thole PA-C Work Phone: [facility] [place] Comment on above: Lumbar spondylosis ( Primary Dx) Start: 06-05-2023 End: 06-05-2023 Telemedicine consultation with patient Padma Thole PA-C Work Phone: [facility] Start: 05-18-2023 Telephone encounter Perfecto Warner MD Work Phone: [facility] Comment on above: Results Start: 05-12-2023 Telephone encounter Perfecto Warner MD Work Phone: [facility] [place] Comment on above: Results Start: 05-08-2023 End: 05-08-2023 Patient encounter procedure Yolande Warner MD Work Phone: [facility] Comment on above: Type 2 diabetes james itus without complication, without long- term current use of insulin (HCC) (Primary Dx); Urinary frequency; OAB (overactive bladder); Prostate cancer (HCC); Ectatic abdominal aorta (HCC); Normocytic anemia; Encounter for immunization Start: 05-07-2023 End: 05-07-2023 Patient encounter procedure Lucinda Kohler Work Phone: Podiatry Comment on above: Onychomycosis (Prima ry Dx); Pain in toe of left foot; Pain in toe of right foot; Diabetic polyneuropathy associated with type 2 diabetes mellitus (HCC); Diminished pulses in lower extremity Start: 04-23-2023 Telephone encounter Bull Lam MD Work Phone: [facility] Comment on above: Injection Questions Start: 04-23-2023 End: 04-23-2023 Patient encounter procedure Bull Lam MD Work Phone: [facility] Comment on above: Spinal stenosis, lum bar region, without neurogenic claudication (Primary Dx); Lumbar radiculopathy; Lumbar spondylosis Start: 04-13-2023 Refill Yolande Warner MD Work Phone: [facility] Comment on above: Refill Request Start: 03-13-2023 End: 03-13-2023 Subsequent hospital visit by physician [facility] ([facility]-Stat) Work Phone: Cat Scan Comment on above: Abdominal aortic ane urysm (AAA) without rupture, unspecified part (HCC) [I71.40] Start: 02-25-2023 Telephone encounter Bull Lam MD Work Phone: [facility] [place] Comment on above: Injections (Question s) Patient Question Spinal stenosis, lum bar region, without neurogenic claudication (Primary Dx); Lumbar radiculopathy Start: 02-19-2023 Telephone encounter Bull Lam MD Work Phone: [facility] Comment on above: Results; Care Coordi nator - Other Start: 02-19-2023 End: 02-19-2023 Subsequent hospital visit by physician [facility] (I-Stat) Work Phone: Cat Scan Comment on above: 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 [M48.062] Start: 01-07-2023 End: 01-07-2023 Patient encounter procedure Lucinda Kohler Work Phone: Podiatry Comment on above: Onychomycosis (Prima ry Dx); Pain in toe of left foot; Pain in toe of right foot; Diabetic polyneuropathy associated with type 2 diabetes mellitus (HCC) Start: 12-16-2022 End: 12-16-2022 Patient encounter procedure Monet Proctor APRN.CNP Work Phone: [facility] Comment on above: Cellulitis of left t oe (Primary Dx) Start: 11-07-2022 End: 11-07-2022 Patient encounter procedure Yolande Warner MD Work Phone: [facility] [place] Comment on above: Chronic low back precious n without sciatica, unspecified back pain laterality (Primary Dx); Spinal stenosis of lumbar region without neurogenic claudication; Type 2 diabetes mellitus without complication, without long-term current use of insulin (HCC); Hyperlipidemia, unspecified hyperlipidemia type Start: 10-24-2022 End: 10-24-2022 Refill Yolande Warner MD Work Phone: [facility] [place] Comment on above: Refill Request Type 2 diabetes james itus without complication, without long-term current use of insulin (HCC) (Primary Dx); Hyperlipidemia, unspecified hyperlipidemia type; Prostate cancer (HCC); Elevated PSA; Benign prostatic hyperplasia with nocturia; Spinal stenosis of lumbar region without neurogenic claudication; Chronic low back pain without sciatica, unspecified back pain laterality Start: 10-20-2022 Refill Yolande Warner MD Work Phone: [facility] Start: 10-08-2022 End: 10-08-2022 Patient encounter procedure Lucinda Vargasanna Work Phone: Podiatry Comment on above: Onychomycosis (Prima ry Dx); Pain in toe of left foot; Pain in toe of right foot; Diabetic polyneuropathy associated with type 2 diabetes mellitus (HCC); Diminished pulses in lower extremity Start: 10-06-2022 Telephone encounter Perfecto Warner MD Work Phone: [facility] Comment on above: Patient Question Start: 09-18-2022 End: 09-18-[address] Perfecto Warner Work Phone: [facility] Work Phone: Start: 09-18-2022 End: 09-18-[address] Perfecto Warner Work Phone: [facility]-Laboratory Start: 07-15-2022 End: 07-15-[address] Perfecto Warner Work Phone: [facility] Start: 07-11-2022 End: 07-11-2022 Patient encounter procedure Benny Sánchez PA-C Work Phone: Urology Comment on above: Prostate cancer (HCC ) (Primary Dx) Start: 07-10-2022 End: 07-10-2022 Patient encounter procedure Yolande Warner MD Work Phone: [facility] Comment on above: Bladder outlet obstr uction (Primary Dx); Urinary catheter in place; Gross hematuria; Prostate cancer (HCC); Benign prostatic hyperplasia with nocturia Start: 07-10-2022 Telephone encounter Perfecto Warner MD Work Phone: [facility] Comment on above: Appointment Start: 07-03-2022 End: 07-03-2022 Emergency department patient visit Dr. Perfecto Warner Work Phone: [facility]-Emergency Department Start: 07-03-2022 End: 07-03-2022 Patient encounter procedure Lucinda Kohler Work Phone: Podiatry Comment on above: Onychomycosis (Prima ry Dx); Pain in toe of left foot; Pain in toe of right foot; Diabetic polyneuropathy associated with type 2 diabetes mellitus (HCC) Start: 06-25-2022 End: 06-26-2022 Evaluation and management of inpatient [facility] Start: 06-25-2022 End: 06-26-[address] Perfecto Warner Work Phone: [facility] Work Phone: Start: 06-16-2022 Non-patient / Non-visit Dr. Leila Warner Work Phone: [facility] Start: 06-15-2022 End: 06-15-2022 Emergency department patient visit Dr. Perfecto Warner Work Phone: [facility]-Emergency Department Start: 06-12-2022 Non-patient / Non-visit Dr. Leila Warner Work Phone: [facility] Start: 06-12-[address] Mukund Warner Work Phone: [facility]-Radiation Oncology Start: 06-11-2022 End: 06-11-[address] Perfecto Warner Work Phone: [facility] Start: 06-04-2022 End: 06-04-[address] Perfecto Warner Work Phone: [facility] Start: 05-28-2022 End: 05-28-[address] Perfecto Warner Work Phone: [facility] Start: 05-24-2022 End: 05-24-2022 Emergency department patient visit Dr. Perfecto Warner Work Phone: [facility]-Emergency Department Start: 05-23-[address] Mukund [facility] Start: 05-20-2022 End: 05-20-[address] Perfecto Warner Work Phone: [facility] Start: 05-14-2022 End: 05-14-[address] Perfecto Warner Work Phone: [facility] Emergency Department Start: 05-06-2022 End: 05-06-[address] Perfecto Warner Work Phone: [facility] Start: 05-02-2022 Non-patient / Non-visit Dr. Leila Warner Work Phone: [facility] Start: 05-01-2022 Non-patient / Non-visit Dr. Leila Warner Work Phone: [facility] Start: 04-23-[address] Mukund [facility] Start: 04-23-2022 Non-patient / Non-visit Dr. Leila Warner Work Phone: [facility] Start: 04-23-2022 End: 04-23-2022 Patient encounter procedure Yolande Warner MD Work Phone: [facility] Comment on above: Type 2 diabetes james itus without complication, without long- term current use of insulin (HCC) (Primary Dx); Hyperlipidemia, unspecified hyperlipidemia type; Benign prostatic hyperplasia with nocturia; Prostate cancer (HCC); Elevated PSA; Trigger little finger of right hand Start: 04-22-2022 Telephone encounter Perfecto Warner MD Work Phone: [facility] Comment on above: Orders (labs) Start: 04-22-2022 End: 04-22-[address] Perfecto Warner Work Phone: [facility] Work Phone: Start: 04-22-2022 End: 04-22-[address] Perfecto Warner Work Phone: [facility] Start: 04-16-2022 End: 04-16-2022 Admission to same day surgery center Dr. Perfecto [facility] Start: 03-26-2022 End: 03-26-2022 Subsequent hospital visit by physician [facility] Work Phone: Radiology Comment on above: Finger pain, right [ M79.644] Start: 03-26-2022 End: 03-26-2022 Patient encounter procedure Kamlesh Alvarado APRN.CNP Work Phone: [facility] Comment on above: Finger pain, right ( Primary Dx) Start: 03-06-2022 End: 03-06-[address] Perfecto Warner Work Phone: [facility] Start: 02-12-2022 End: 02-12-[address] Perfecto Warner Work Phone: [facility] Start: 01-30-2022 End: 01-30-[address] Perfecto Warner Work Phone: [facility] Start: 01-13-2022 End: 01-13-2022 Patient encounter procedure [facility]Laboratory, Specimen Start: 12-24-2021 End: 12-24-2021 Patient encounter procedure Benny Sánchez PA-C Work Phone: Urology Comment on above: Elevated PSA (Primar y Dx); Benign prostatic hyperplasia with nocturia Start: 12-16-2021 Telephone encounter Perfecto Warner MD Work Phone: [facility] Comment on above: Fax requested Start: 12-11-2021 Telephone encounter Perfecto Warner MD Work Phone: [facility] Comment on above: Urology consult Start: 12-11-2021 End: 12-11-2021 Patient encounter procedure Lucinda Kohler Work Phone: Podiatry Comment on above: Onychomycosis (Prima ry Dx); Pain in toe of left foot; Pain in toe of right foot; Diabetic polyneuropathy associated with type 2 diabetes mellitus (HCC) Start: 11-27-2021 End: 11-27-2021 Patient encounter procedure Haydee Podlogchucky R[employer]GER THIRD.[employer] PROGRAM MANAGER Work Phone: [facility] Comment on above: Bladder pain (Primar y Dx); Elevated PSA Start: 11-25-2021 Telephone encounter Benny mdoi PA-C Work Phone: Urology Comment on above: Results Procedures Date Procedure Procedure Detail Performing Clinician Start: 02-10-2025 Assay of prostate sp ecific antigen total Dr. Perfecto Warner MD Work Phone: Comment on above: This test was perfor med using the [employer] tPSA method. Measured values of a patient sample can vary depending on the testing procedure used. PSA values determined on patient samples by different testing procedures cannot be used interchangeably. If there is a change in PSA assays while monitoring therapy, sequential testing should be performed to confirm baseline values. Start: 01-23-2025 Urnls dip stick/tabl et reagent auto microscopy Dr. Perfecto Warner MD Work Phone: Start: 01-23-2025 CT of abdomen and pe lvis without contrast Dr. Perfecto Warner MD Work Phone: Start: 01-23-[address] Perfecto Warner MD Work Phone: Start: 01-23-[address] Mukund Warner MD Work Phone: Start: 11-10-2024 MRI of lumbar spine Dr. Perfecto Warner MD Work Phone: Start: 09-08-2024 X-ray of lumbosacral spine Dr. Perfecto Warner MD Work Phone: Start: 06-25-2024 Radiologic exam ches t 2 views Yolande Warner MD Work Phone: Start: 08-13-2023 CT cervical spine wi thout contrast Dr. Perfecto Warner Work Phone: Start: 08-13-2023 CT of head without contrast Dr. Perfecto Warner Work Phone: Start: 05-08-2023 INFLUENZA VACCINE, P RSV FREE, [...] microscopy Yolande Warner MD Work Phone: Start: 06-25-2022 Cysto,TUR,Prostate,O lympus (Not Applicable) Dr. Perfecto Warner Work Phone: Start: 04-22-2022 MRI of pelvis with contrast Dr. Perfecto Warner Work Phone: Start: 03-26-2022 Radex fingr minimum 2 views Kamlesh Alvarado APRN.CNP Work Phone: Start: 02-26-2022 Positron emission tomography with computed tomography Dr. Perfecto Warner Work Phone: Start: 02-12-2022 MRI of pelvis with contrast Dr. Perfecto Warner Work Phone: Start: 12-24-2021 Urnls dip stick/tabl et rgnt auto w/o microscopy Benny Sánchez PA-C Work Phone: Plan of Treatment Date Care Activity Detail Author Start: 11-04-2025 Hepatitis B screening Urine Albumin:Creatinine Ratio [facility] Start: 11-04-2025 Hepatitis B surface antibody level LDL Cholesterol [facility] Start: 10-06-2025 Diabetic foot examination Diabetic Foot Exam [facility] Start: 07-19-2025 Glaucoma screening Dilated Retinal Exam [facility] Start: 05-30-2025 End: 05-30-2025 Patient encounter procedure Vascular Medicine Comment on above: Atherosclerosis of aorta (HCC) [I70.0] Start: 05-12-2025 End: 05-12-2025 Patient encounter procedure 05/12/2025 7:00 AM EDT Office Visit Family Medicine [facility] [address] [place] [address] Yolande Warner MD [address] [place], [place] [id number] 6 month follow up Family Medicine [facility] Comment on above: 6 month follow up Start: 05-10-2025 Covid-19 Vaccine ( season) Covid-19 Vaccine () [facility] Comment on above: Postponed from 05/01/2024 (Declined at t his time) Start: 05-10-2025 Covid-19 Vaccine ( season) Covid-19 Vaccine ( season) [facility] Comment on above: Postponed from 05/01/2024 (Declined at t his time) Start: 05-10-2025 End: 05-10-2025 Patient encounter procedure 05/10/2025 9:15 AM EDT Office Visit Gastroenterology [place] [address] [place] [id number] Kamla Crowder PA-C [address] [facility] [place] [id number] 3 Month Follow Up [facility] [place] Comment on above: 3 Month Follow Up Start: 05-09-2025 Hepatitis B surface antibody level LDL Cholesterol [facility] Start: 05-07-2025 Hemoglobin A1c measurement HbA1C [facility] Start: 04-25-2025 End: 04-25-2025 Patient encounter procedure 04/25/2025 8:15 AM EDT Office Visit Podiatry [address] [place] [address] Lucinda Kohler [address] [place] [address] 2 month follow up nail care Podiatry Comment on above: 2 month follow up nail care Start: 02-21-2025 End: 02-21-2025 Patient encounter procedure 02/21/2025 8:00 AM EDT Office Visit Podiatry [address] [place] [address] Lucinda Kohler [address] [place] [address] 2 month follow up nail care Podiatry Comment on above: 2 month follow up nail care Start: 02-07-2025 End: 05-09-2025 CELIAC SCREEN WITH REFLEX [facility] Comment on above: Expected: 02/07/2025, Expires: Start: 01-23-2025 [facility] Start: 01-23-2025 [facility] Start: 01-23-2025 Bacteria identified in Urine by Culture Urine Culture [facility] Start: 12-20-2024 End: 12-20-2024 Patient encounter procedure 12/20/2024 8:15 AM EDT Office Visit Podiatry [address] [place] [address] Lucinda Kohler [address] [place] [address] 2 month follow up Podiatry Comment on above: 2 month follow up Start: 12-06-2024 End: 12-06-2024 Patient encounter procedure 12/06/2024 8:00 AM EDT Office Visit Podiatry [address] [place] [address] Lucinda Kohler [address] [address] 2 month follow up Podiatry Comment on above: 2 month follow up Start: 11-24-2024 Covid-19 Vaccine ( season) Covid-19 Vaccine () [facility] Start: 11-15-2024 End: 11-15-2024 Patient encounter procedure 11/15/2024 9:45 AM EDT Office Visit Vascular Medicine [address] [place] [address] [place] [address] [place] [address] 6 month follow up Vascular Medicine Comment on above: 6 month follow up Start: 11-08-2024 End: 11-08-2024 Patient encounter procedure 11/08/2024 8:00 AM EDT Office Visit Family Medicine [facility] [address] [place] [address] Yolande Warner MD [address] [place], [place] [id number] 6 month follow up [facility] Comment on above: 6 month follow up Start: 11-07-2024 End: 02-06-2025 CBC W Auto Differential panel - Blood COMPLETE BLOOD COUNT AND DIFFERENTIAL Lab Routine Controlled type 2 diabetes mellitus without complication, without long-term current use of insulin (HCC) Expected: 11/07/2024, Expires: 02/06/2025 [facility] Work Phone: Comment on above: Expected: 11/07/2024, Expires: Start: 11-07-2024 End: 02-06-2025 Comprehensive metabolic 2000 panel - Serum or Plasma COMPREHENSIVE METABOLIC PANEL Lab Routine Controlled type 2 diabetes mellitus without complication, without long-term current use of insulin (HCC) Expected: 11/07/2024, Expires: 02/06/2025 [facility] Comment on above: Expected: 11/07/2024, Expires: Start: 11-07-2024 End: 02-06-2025 Hemoglobin A1c in Blood HEMOGLOBIN A1C Lab Routine Controlled type 2 diabetes mellitus without complication, without long-term current use of insulin (HCC) Expected: 11/07/2024, Expires: 02/06/2025 [facility] Comment on above: Expected: 11/07/2024, Expires: Start: 11-07-2024 End: 02-06-2025 LIPID PANEL, NONFASTING LIPID PANEL, NONFASTING Lab Routine Controlled type 2 diabetes mellitus without complication, without long-term current use of insulin (HCC) Expected: 11/07/2024, Expires: 02/06/2025 [facility] Comment on above: Expected: 11/07/2024, Expires: Start: 11-07-2024 End: 02-06-2025 Microalbumin/Creatinine [Mass Ratio] in Urine ALBUMIN/CREATININE RATIO, URINE Lab Routine Controlled type 2 diabetes mellitus without complication, without long-term current use of insulin (HCC) Expected: 11/07/2024, Expires: 02/06/2025 [facility] Comment on above: Expected: 11/07/2024, Expires: Start: 11-06-2024 Hemoglobin A1c measurement HbA1C [facility] Start: 11-05-2024 RSV Vaccine (1 - 1-dose 60+ series) RSV Vaccine (1 - 1-dose 60+ series) [facility] Comment on above: Postponed from 2000 (Declined at t his time) Start: 11-04-2024 Hepatitis B screening Urine Albumin:Creatinine Ratio [facility] Start: 10-18-2024 End: 10-18-2024 Patient encounter procedure 10/18/2024 8:25 AM EST Office Visit Gastroenterology [facility] [address] [place] [address] Kamla Crowder PA-C [address] [place] [address] first available office appointment, constipation [facility] [place] Comment on above: first available office appointment, cons tipation Start: 10-06-2024 End: 10-06-2024 Patient encounter procedure 10/06/2024 8:00 AM EST Office Visit Podiatry [address] [place] [address] Lucinda Kohler [address] [address] 2 month follow up nail are Podiatry Comment on above: 2 month follow up nail are Start: 09-17-2024 Diabetic foot examination Diabetic Foot Exam [facility] Start: 09-02-2024 End: 09-02-2024 Patient encounter procedure 09/02/2024 1:30 PM EST OT/PT/Speech Visit [facility] [address] [place] [address] Fely Medrano, OTR/L [address] [place] [address] Consult Arthritis of both hands [facility] Comment on above: Consult Arthritis of both hands Start: 09-02-2024 End: 09-02-2024 Patient encounter procedure 09/02/2024 9:15 AM EST OT/PT/Speech Visit [facility] [address] [place] [address] Fely Medrano, OTR/L [address] [place] [address] Consult to OT [facility] Comment on above: Consult to OT Start: 08-31-2024 Advance Directive Discussion Advance Directive Discussion [facility] Start: 08-01-2024 End: 08-01-2024 Patient encounter procedure Podiatry Comment on above: 2 month follow up diabetic foot care Start: 07-26-2024 End: 07-26-2024 Patient encounter procedure Podiatry Comment on above: 2 month follow up diabetic foot care gas, constipation, d iarrhea, and upset stomach Start: 07-08-2024 End: 10-07-2024 C reactive protein [Mass/volume] in Serum or Plasma [facility] Comment on above: Expected: 07/08/2024, Expires: Start: 07-08-2024 End: 10-07-2024 Cyclic citrullinated peptide IgG Ab [Units/volume] in Serum or Plasma [facility] Comment on above: Expected: 07/08/2024, Expires: Start: 07-08-2024 End: 10-07-2024 Erythrocyte sedimentation rate [facility] Comment on above: Expected: 07/08/2024, Expires: Start: 07-08-2024 End: 10-07-2024 Nuclear Ab [Presence] in Serum by Immunoassay [facility] Comment on above: Expected: 07/08/2024, Expires: Start: 07-08-2024 End: 10-07-2024 Rheumatoid factor [Units/volume] in Serum or Plasma [facility] Comment on above: Expected: 07/08/2024, Expires: Start: 07-08-2024 End: 10-07-2024 Urate [Mass/volume] in Serum or Plasma [facility] Comment on above: Expected: 07/08/2024, Expires: Start: 07-08-2024 End: 07-08-2024 Patient encounter procedure 07/08/2024 1:00 PM EST Office Visit [facility] [address] [place] [address] Yolande Warner MD [address] [place] [address] 2 week follow up - arthritis in hands [facility] Comment on above: 2 week follow up - arthritis in hands Start: 05-26-2024 End: 05-26-2024 Patient encounter procedure 05/26/2024 8:00 AM EDT Office Visit Podiatry [address] [place] [address] Lucinda Kohler [address] [place] [address] 2 month follow up diabetic foot care Podiatry Comment on above: 2 month follow up diabetic foot care Start: 05-17-2024 End: 05-17-2024 Patient encounter procedure 05/17/2024 9:00 AM EDT Office Visit Vascular Medicine [address] [place] [address] [place] [address] [place] [address] 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] Vascular Medicine Comment on above: 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] Start: 05-10-2024 End: 05-10-2024 Patient encounter procedure 05/10/2024 8:00 AM EDT Office Visit Family Medicine [facility] [address] [facility] [place] [address] Yolande Warner MD [address] [facility] [place] [address] 6 month follow up Family Medicine [facility] Comment on above: 6 month follow up Start: 05-09-2024 End: 05-09-2024 ambulatory 05/09/2024 7:30 AM EDT Results Only [facility] [address] [place] [address] Lab [facility] Comment on above: Lab Start: 05-08-2024 End: 08-07-2024 Comprehensive metabolic 2000 panel - Serum or Plasma COMP METABOLIC PANEL Lab Routine Controlled type 2 diabetes mellitus without complication, without long-term current use of insulin (HCC) Expected: 05/08/2024, Expires: 08/07/2024 [facility] Work Phone: Comment on above: Expected: 05/08/2024, Expires: Start: 05-08-2024 Covid-19 Vaccine ( season) Covid-19 Vaccine () [facility] Comment on above: Postponed from 05/01/2023 (Declined at t his time) Start: 05-08-2024 COVID-19 VACCINE (5 - Pfizer series) COVID-19 VACCINE (5 - Pfizer series) [facility] Comment on above: Postponed from 11/15/2022 (Declined at t his time) Start: 05-08-2024 End: 08-07-2024 Hemoglobin A1c in Blood HGB A1C Lab Routine Controlled type 2 diabetes mellitus without complication, without long-term current use of insulin (HCC) Expected: 05/08/2024, Expires: 08/07/2024 [facility] Work Phone: Comment on above: Expected: 05/08/2024, Expires: Start: 05-08-2024 Hepatitis B screening URINE ALBUMIN:CREATININE RATIO [facility] Start: 05-08-2024 End: 08-07-2024 Lipid 1996 panel - Serum or Plasma LIPID PANEL BASIC Lab Routine Controlled type 2 diabetes mellitus without complication, without long-term current use of insulin (HCC) Expected: 05/08/2024, Expires: 08/07/2024 [facility] Work Phone: Comment on above: Expected: 05/08/2024, Expires: Start: 05-07-2024 Hemoglobin A1c measurement HbA1C [facility] Start: 05-07-2024 Hepatitis B surface antibody level LDL CHOLESTEROL [facility] Start: 05-01-2024 Influenza vaccination Influenza Vaccine (#1) [facility] Start: 03-24-2024 End: 03-24-2024 Patient encounter procedure Podiatry Comment on above: 2 month follow up ingrown toenail L 2 month follow up in grown toenail/ nail care Start: 03-10-2024 End: 03-10-2024 Patient encounter procedure 03/10/2024 8:30 AM EDT Office Visit [facility] [address] [place] [address] Bull Lam MD [address] [facility] [address] [place] [address] TFESI follow up [facility] Comment on above: TFESI follow up Start: 03-07-2024 End: 06-06-2024 Us abdominal aorta real time screen study aaa US SCREENING FOR AAA Radiology Routine Ectatic abdominal aorta (HCC) Expected: 03/07/2024, Expires: 06/06/2024 [facility] Work Phone: Comment on above: Expected: 03/07/2024, Expires: Start: 01-29-2024 End: 01-29-2024 Admission to same day surgery center [place] SURGERY Comment on above: INJECTION ANESTHETIC AGENT/STEROID TRANS FORAMINAL EPIDURAL W/ IMAGING GUIDANCE LUMBAR BILATERAL Start: 01-29-2024 End: 01-29-2024 Njx anes&/strd w/img tfrml edrl lmbr/sac 1 lvl LD OR Start: 01-29-2024 Subsequent hospital visit by physician LD SURGERY Comment on above: Spinal stenosis, lumbar region, with madelyn rogenic claudication [M48.062] Start: 01-20-2024 End: 01-20-2024 Patient encounter procedure 01/20/2024 8:15 AM EDT Office Visit Podiatry [address] [facility] [address] [place] [address] Lucinda Kohler [address] [place] [address] 2 month follow up nail care Podiatry Comment on above: 2 month follow up nail care Start: 01-17-2024 Covid-19 Vaccine ( season) Covid-19 Vaccine () [facility] Start: 11-05-2023 End: 02-04-2024 ALBUMIN/CREAT RATIO RND UR [facility] Work Phone: Comment on above: Expected: 11/05/2023, Expires: Start: 11-05-2023 End: 02-04-2024 Comprehensive metabolic 2000 panel - Serum or Plasma [facility] Work Phone: Comment on above: Expected: 11/05/2023, Expires: Start: 11-05-2023 End: 02-04-2024 Hemoglobin A1c in Blood [facility] Work Phone: Comment on above: Expected: 11/05/2023, Expires: Start: 11-05-2023 Hemoglobin A1c measurement HbA1C [facility] Start: 11-05-2023 Hemoglobin A1c/Hemoglobin.total in Blood HBA1C [facility] Start: 08-31-2023 Advance Directive Discussion Advance Directive Discussion [facility] Start: 08-31-2023 Behavioral Health Screening Behavioral Health Screening [facility] Start: 08-31-2023 Depression Assessment Depression Assessment [facility] Start: 08-22-2023 [facility] Start: 08-17-2023 End: 10-17-2023 CBC W Auto Differential panel - Blood CBC + DIFF Lab Routine Normocytic anemia Expected: 08/17/2023, Expires: 10/17/2023 [facility] Work Phone: Comment on above: Expected: 08/17/2023, Expires: Start: 08-13-2023 [facility] Start: 05-10-2023 End: 07-10-2023 CBC W Auto Differential panel - Blood CBC + DIFF Lab Routine Type 2 diabetes mellitus without complication, without long-term current use of insulin (HCC) Hyperlipidemia, unspecified hyperlipidemia type Expected: 05/10/2023, Expires: 07/10/2023 [facility] Work Phone: Comment on above: Expected: 05/10/2023, Expires: Start: 05-10-2023 End: 07-10-2023 Comprehensive metabolic 2000 panel - Serum or Plasma COMP METABOLIC PANEL Lab Routine Type 2 diabetes mellitus without complication, without long-term current use of insulin (HCC) Hyperlipidemia, unspecified hyperlipidemia type Expected: 05/10/2023, Expires: 07/10/2023 [facility] Work Phone: Comment on above: Expected: 05/10/2023, Expires: 3 Start: 05-10-2023 End: 07-10-2023 Hemoglobin A1c in Blood HGB A1C Lab Routine Type 2 diabetes mellitus without complication, without long-term current use of insulin (HCC) Hyperlipidemia, unspecified hyperlipidemia type Expected: 05/10/2023, Expires: 07/10/2023 [facility] Work Phone: Comment on above: Expected: 05/10/2023, Expires: 3 Start: 05-10-2023 End: 07-10-2023 LIPID PANEL, NONFASTING LIPID PANEL, NONFASTING Lab Routine Type 2 diabetes mellitus without complication, without long-term current use of insulin (HCC) Hyperlipidemia, unspecified hyperlipidemia type Expected: 05/10/2023, Expires: 07/10/2023 [facility] Work Phone: Comment on above: Expected: 05/10/2023, Expires: 3 Start: 05-01-2023 Influenza vaccination INFLUENZA (#1) [facility] Start: 04-22-2023 Hemoglobin A1c/Hemoglobin.total in Blood HBA1C [facility] Start: 04-22-2023 Hepatitis B screening URINE ALBUMIN:CREATININE RATIO [facility] Start: 04-22-2023 Hepatitis B surface antibody level LDL CHOLESTEROL [facility] Start: 03-27-2023 3 comp foot exam completed DIABETIC FOOT EXAM [facility] Start: 02-19-2023 End: 04-21-2023 CREATININE BLD CREATININE BLD Lab Routine Abdominal aortic aneurysm (AAA) without rupture, unspecified part (HCC) Expected: 02/19/2023, Expires: 04/21/2023 [facility] Work Phone: Comment on above: Expected: 02/19/2023, Expires: 3 Start: 01-23-2023 Glaucoma screening Dilated Retinal Exam [facility] Start: 01-23-2023 Hepatitis C antibody, confirmatory test DILATED RETINAL EXAM [facility] Start: 11-15-2022 COVID-19 VACCINE (5 - Pfizer series) COVID-19 VACCINE (5 - Pfizer series) [facility] Start: 10-23-2022 Hemoglobin A1c/Hemoglobin.total in Blood HBA1C [facility] Start: 10-06-2022 End: 12-06-2022 Comprehensive metabolic 2000 panel - Serum or Plasma COMP METABOLIC PANEL Lab Routine Type 2 diabetes mellitus without complication, without long-term current use of insulin (HCC) Expected: 10/06/2022, Expires: 12/06/2022 [facility] Work Phone: Comment on above: Expected: 10/06/2022, Expires: 3 Start: 10-06-2022 End: 12-06-2022 Hemoglobin A1c in Blood HGB A1C Lab Routine Type 2 diabetes mellitus without complication, without long-term current use of insulin (HCC) Expected: 10/06/2022, Expires: 12/06/2022 [facility] Work Phone: Comment on above: Expected: 10/06/2022, Expires: 3 Start: 08-31-2022 ADVANCE DIRECTIVE DISCUSSION ADVANCE DIRECTIVE DISCUSSION [facility] Start: 08-31-2022 DEPRESSION ASSESSMENT DEPRESSION ASSESSMENT [facility] Start: 07-04-2022 Hepatitis C antibody, confirmatory test DILATED RETINAL EXAM [facility] Start: 06-26-2022 Patient discharge [facility] Start: 06-26-2022 Removal of urinary catheter [facility] Start: 06-25-2022 Oxygen therapy [facility] Start: 06-25-2022 Following clinical pathway protocol [facility] Start: 06-25-2022 Application of intermittent pneumatic compression device [facility] Start: 06-25-2022 Anesthesia transurethral resection of prostate ANESTH REMOVAL OF PROSTATE [facility] Start: 06-25-2022 Trurl electrosurg rescj prostate bleed complete PROSTATECTOMY (TURP) [facility] Start: 06-25-2022 Deep breathing and coughing exercises [facility] Start: 06-25-2022 Admission procedure [facility] Start: 06-25-2022 Incentive spirometry [facility] Start: 06-25-2022 Irrigation of urinary bladder [facility] Start: 06-25-2022 Measuring intake and output [facility] Start: 06-25-2022 Patient education [facility] Start: 06-25-2022 Provision of activity privileges [facility] Start: 06-25-2022 Taking patient vital signs [facility] Start: 06-25-2022 Vital signs measurements [facility] Start: 06-25-2022 [facility] Start: 05-01-2022 Influenza vaccination INFLUENZA (#1) [facility] Start: 04-22-2022 End: 06-22-2022 ALBUMIN/CREAT RATIO RND UR [facility] Work Phone: Comment on above: Expected: 04/22/2022, Expires: 2 Start: 04-22-2022 End: 06-22-2022 Comprehensive metabolic 2000 panel - Serum or Plasma [facility] Work Phone: Comment on above: Expected: 04/22/2022, Expires: 2 Start: 04-22-2022 End: 06-22-2022 Hemoglobin A1c in Blood [facility] Work Phone: Comment on above: Expected: 04/22/2022, Expires: 2 Start: 04-22-2022 End: 06-22-2022 LIPID PANEL, NONFASTING [facility] Work Phone: Comment on above: Expected: 04/22/2022, Expires: 2 Start: 04-17-2022 Hemoglobin A1c/Hemoglobin.total in Blood HBA1C [facility] [place] Start: 04-17-2022 Hepatitis B screening URINE ALBUMIN:CREATININE RATIO [facility] [place] Start: 04-17-2022 Hepatitis B surface antibody level LDL CHOLESTEROL [facility] [place] Start: 04-16-2022 Anesthesia anorectal procedure ANESTH ANORECTAL SURGERY [facility] Work Phone: Start: 04-16-2022 Plmt interstitial dev radiat tx prostate 1/mult PLACE RT DEVICE/MARKER PROS [facility] Work Phone: Start: 04-16-2022 Transperineal plmt biodegradable matrl 1/scoop driver njx TPRNL PLMT BIODEGRDABL MATRL [facility] Work Phone: Start: 04-16-2022 Ambulation without limitation [facility] Work Phone: Start: 04-16-2022 Medication education [facility] Work Phone: Start: 04-16-2022 Patient discharge [facility] Work Phone: Start: 04-16-2022 Taking patient vital signs [facility] Work Phone: Start: 04-16-2022 [facility] Work Phone: Start: 02-26-2022 Positron emission tomography with computed tomography [facility] Start: 10-15-2021 COVID-19 VACCINE (4 - Booster for Pfizer series) COVID-19 VACCINE (4 - Booster for Pfizer series) [facility] [place] Start: 10-12-2021 3 comp foot exam completed DIABETIC FOOT EXAM [facility] [place] Start: 08-31-2021 ADVANCE DIRECTIVE DISCUSSION ADVANCE DIRECTIVE DISCUSSION [facility] [place] Start: 08-31-2021 DEPRESSION ASSESSMENT DEPRESSION ASSESSMENT [facility] [place] Start: 08-09-2021 COVID-19 VACCINE (4 - Booster for Pfizer series) COVID-19 VACCINE (4 - Booster for Pfizer series) [facility] [place] Start: 03-31-2005 Medicare Annual Wellness Visit Medicare Annual Wellness Visit [facility] [place] Start: 2000 Hepatitis B Vaccine (1 of 3 - Risk 3-dose series) Hepatitis B Vaccine (1 of 3 - Risk 3-dose series) [facility] [place] Start: 2000 RSV Vaccine (1 - 1-dose 60+ series) RSV Vaccine (1 - 1-dose 60+ series) [facility] [place] Start: 1958 Anxiety Screening Anxiety Screening [facility] [place] Start: 1958 Depression Screening Depression Screening [facility] [place] End: 03-20-2024 Ct angio abd&plvis cntrst mtrl w/wo cntrst img CTA ABD/PEL W IVCON Radiology Routine Abdominal aortic aneurysm (AAA) without rupture, unspecified part (HCC) 1 Occurrences starting 02/19/2023 until 03/20/2024 [facility] Work Phone: Comment on above: 1 Occurrences starting 02/19/2023 until 03/20/2024 Hemoglobin.gastroint est inal.lower [Presence] in Stool by Immunoassay FECAL OCCULT BLOOD TEST Lab Routine Normocytic anemia 05/09/2023 8:00 AM EDT [facility] Work Phone: Njx anes&/strd w/img tfrml edrl lmbr/sac 1 lvl INJECTION ANESTHETIC AGENT/STEROID TRANSFORAMINAL EPIDURAL W/ IMAGING GUIDANCE LUMBAR BILATERAL Spinal stenosis, lumbar region, with neurogenic claudication Lumbar radiculopathy LD OR Patient Education [facility] Work Phone: Patient referral [facility] Work Phone: POST VOID RESIDUAL POST VOID RES IDUAL Procedures Routine Elevated PSA Benign prostatic hyperplasia with nocturia Ordered: 12/24/2021 [facility] Work Phone: Comment on above: Ordered: 12/24/2021 End: 12-25-2022 PROSTATE BIOPSY W/TRANSRECTAL US PROSTATE BIOPSY W/TRANSRECTAL US Radiology Routine Elevated PSA 1 Occurrences starting 11/25/2021 until 12/25/2022 [facility] Work Phone: Comment on above: 1 Occurrences starting 11/25/2021 until 12/25/2022 Prostate specific antigen measurement [facility] Prostate specific antigen measurement [facility] Urine culture [facility] End: 11-15-2025 US Abdominal Aorta US ABD AORTA COMPLETE VAS LAB Vascular Lab Routine Atherosclerosis of aorta (HCC) 1 Occurrences starting 11/15/2024 until 11/15/2025 [facility] Work Phone: Comment on above: 1 Occurrences starting 11/15/2024 until 11/15/2025 US Abdominal Aorta f or screening US SCREENING FOR AAA Radiology Routine Ectatic abdominal aorta (HCC) 03/07/2024 7:55 AM EDT [facility] Work Phone: End: 03-09-2026 XR Abdomen Supine and Upright XR ABDOMEN 2V ROUTINE SUPINE W UPRIGHT/DECUB/CTL Radiology Routine Excessive gas Incomplete passage of stool 1 Occurrences starting 02/07/2025 until 03/09/2026 [facility] Work Phone: Comment on above: 1 Occurrences starting 02/07/2025 until 03/09/2026 XR Abdomen Supine an d Upright XR ABDOMEN 2V ROUTINE SUPINE W UPRIGHT/DECUB/CTL Radiology Routine Excessive gas Incomplete passage of stool 02/07/2025 1:37 PM EDT [facility] [place] End: 08-07-2025 XR Hand - bilateral PA and Lateral and Oblique XR HAND GENERAL 3V PA/LAT/OBL BILATERAL Radiology Routine Arthritis of both hands 1 Occurrences starting 07/08/2024 until 08/07/2025 [facility] Work Phone: Comment on above: 1 Occurrences starting 07/08/2024 until 08/07/2025 XR Hand - bilateral PA and Lateral and Oblique XR HAND GENERAL 3V PA/LAT/OBL BILATERAL Radiology Routine Arthritis of both hands 07/08/2024 1:50 PM EST [facility] LD OR [facility] Immunizations Immunization Date Immunization Notes Care Provider [facility] 05-27-2024 COVID-19 vaccine, ag e 12+ yr (PFIZER-BIONTECH COMIRNATY) Yolande Warner MD Work Phone: [facility] [place] 05-10-2024 influenza, high dose seasonal, preservative-free Yolande Warner MD Work Phone: [facility] [place] 11-20-2023 respiratory syncytia l virus (RSV) vaccine, adjuvanted (AREXVY) Bull Lam MD Work Phone: [facility] [place] 05-08-2023 influenza (HD-IIV4) vaccine, age 65+ yr, high dose, quadrivalent, PF (FLUZONE HIGH-DOSE) Yolande Warner MD Work Phone: [facility] [place] 05-08-2023 influenza virus vacc ine, unspecified formulation Us 2 Work Phone: [facility] [place] 07-18-2022 COVID-19 booster vaccine, age 12+ yr, bivalent (PFIZER-BIONTECH) Yolande Warner MD Work Phone: [facility] [place] 07-04-2022 influenza, high-dose , quadrivalent vaccine (FLUZONE HIGH DOSE QUADRIVALENT) Benny Sánchez PA-C Work Phone: [facility] [place] 05-17-2021 influenza, high dose seasonal, preservative-free Haydee Podlogar [employer]GER [employer] PROGRAM MANAGER Work Phone: [facility] [place] 10-10-2020 COVID-19 vaccine, ag e 12+ yr (PFIZER-BIONTECH - PURPLE TOP) Haydee Podlogar [employer]IGGER [employer]IC [employer] PROGRAM MANAGER Work Phone: [facility] [place] 09-11-2020 COVID-19 vaccine, ag e 12+ yr (PFIZER-BIONTECH - PURPLE TOP) Haydee Podlogar RIGGER THIRD.PUBLIC HEALTH PROGRAM MANAGER Work Phone: [facility] [place] 06-18-2020 influenza, high dose seasonal, preservative-free Haydee Podlogar RIGGER THIRD[employer]PUBLIC HEALTH PROGRAM MANAGER Work Phone: [facility] [place] 03-26-2020 zoster vaccine recombinant Haydee Podlogar RIGGER [employer]PUBLIC HEALTH PROGRAM MANAGER Work Phone: [facility] [place] 12-26-2019 zoster vaccine recombinant Haydee Podlogar RIGGER [employer]IRD[employer]PUBLIC HEALTH PROGRAM MANAGER Work Phone: [facility] [place] 10-07-2019 pneumococcal polysaccharide vaccine, 23 valent Haydee Podlogar RIGGER [employer]IRD[employer]PUBLIC HEALTH PROGRAM MANAGER Work Phone: [facility] [place] 05-30-2019 influenza, high dose seasonal, preservative-free Haydee Podlogar RIGGER [employer]IRD[employer]PUBLIC HEALTH PROGRAM MANAGER Work Phone: [facility] [place] 08-17-2018 pneumococcal conjuga te vaccine, 13 valent Haydee Podlogar RIGGER [employer]IRD[employer]PUBLIC HEALTH PROGRAM MANAGER Work Phone: [facility] [place] 06-15-2018 influenza, high dose seasonal, preservative-free Haydee Podlogar R[employer]GER [employer]PUBLIC HEALTH PROGRAM MANAGER Work Phone: [facility] [place] 06-18-2009 zoster vaccine, live Haydee P odlogar R[employer]GER [employer]IRD[employer]PUBLIC HEALTH PROGRAM MANAGER Work Phone: [facility] [place] Payers Date Payer Category Payer Self-pay [id number] 2023 Medicare [id number] 2017 Medicare MEDICARE MEDICAR E A AND B [id number] 2017-Present [phone] [address] [address] [place] [address] Medicare [id number] 2017 Private Health Insurance [employer] [id number] 2017-Present [phone] [address] [place] [address] Indemnity [id number] 2017 Private Health Insurance [id number] 2017 Unknown [id number] 2005 Medicare [id number] 2005 Medicare [id number] 1940 Unknown [id number] Unknown [id number] Unknown [id number] Unknown [id number] Unknown [id number] Unknown [id number] Unknown [id number] Unknown [id number] Unknown [id number] Unknown [id number] Unknown [id number] Social History Date Type Detail Facility Start: 07-23-2018 End: 05-10-2024 Tobacco smoking status MIIS Ex-smoker [facility] [place] Work Phone: Start: 07-23-1970 End: 07-23-1990 History of tobacco use Current smoker [facility] [place] Work Phone: Start: 07-23-1970 End: 07-23-1990 History of tobacco use Cigarette Smoker [facility] [place] Work Phone: Start: 07-23-2018 End: 01-22-2023 Cigarettes smoked current (pack per day) - Reported 1.5 [facility] [place] Start: 07-23-2018 End: 05-10-2024 Tobacco use and exposure Smokeless tobacco non-user [facility] [place] Work Phone: Start: 11-27-2021 End: 07-08-2024 Alcohol intake Current drinker of alcohol (finding) [facility] [place] Start: 08-17-2018 History SDOH Alcohol Comment rarely [facility] [place] Start: 1940 Sex Assigned At Not on file [facility] Start: 11-12-2021 End: 07-11-2022 Exposure to SARS-CoV-2 (event) Not sure [facility] [place] Start: 05-22-2021 End: 08-13-2023 Tobacco smoking status NHIS Unknown if ever smoked [facility] Start: 06-11-2019 Rare [facility] Start: 06-11-2019 None [facility] Start: 06-11-2019 Alone [facility] Start: 1940 Sex Assigned At Male [facility] Start: 01-22-2023 End: 04-01-2023 Tobacco use panel [facility] [place] Adult Depression Screening Assessment 0 [facility] [place] Start: 07-26-2024 End: 02-25-2025 Alcoholic beverage intake Ex-drinker (finding) [facility] [place] Start: 11-20-2024 Sex Male (finding) [facility] Medical Equipment Procedure Code Equipment Code Equipment Origin al Text Equipment Identifier Dates HYDROGEL, 10ML FDA Start: 04-16-2022 MARKERS, FIDUCIA L GOLD FDA Start: 04-16-2022 HYDROGEL, 10ML FDA Start: 04-16-2022 MARKERS, FIDUCIA L GOLD FDA Start: 04-16-2022 HYDROGEL, 10ML FDA Start: 04-16-2022 MARKERS, FIDUCIA L GOLD FDA Start: 04-16-2022 HYDROGEL, 10ML FDA Start: 04-16-2022 MARKERS, FIDUCIA L GOLD FDA Start: 04-16-2022 HYDROGEL, 10ML FDA Start: 04-16-2022 MARKERS, FIDUCIA L GOLD FDA Start: 04-16-2022 HYDROGEL, 10ML FDA Start: 04-16-2022 MARKERS, FIDUCIA L GOLD FDA Start: 04-16-2022 HYDROGEL, 10ML FDA Start: 04-16-2022 MARKERS, FIDUCIA L GOLD FDA Start: 04-16-2022 HYDROGEL, 10ML FDA Start: 04-16-2022 MARKERS, FIDUCIA L GOLD FDA Start: 04-16-2022 Test blood sugar (s) 1-2 times daily. Dx: Type 2 DM - Controlled E11.9 Insulin: No [id number] Start: 05-31-2024 Test blood sugar (s) 1 to 2 times daily. Dx: Type 2 DM - Controlled E11.9 Insulin: No [id number] Start: 06-01-2024 HYDROGEL, 10ML FDA Start: 04-16-2022 MARKERS, FIDUCIA L GOLD FDA Start: 04-16-2022 HYDROGEL, 10ML FDA Start: 04-16-2022 MARKERS, FIDUCIA L GOLD FDA Start: 04-16-2022 HYDROGEL, 10ML FDA Start: 04-16-2022 MARKERS, FIDUCIA L GOLD FDA Start: 04-16-2022 HYDROGEL, 10ML FDA Start: 04-16-2022 MARKERS, FIDUCIA L GOLD FDA Start: 04-16-2022 HYDROGEL, 10ML FDA Start: 04-16-2022 MARKERS, FIDUCIA L GOLD FDA Start: 04-16-2022 Goals Date Patient Goal Desired Activity /State Personal health goal Functional Status Date Assessment Result Facility 06-26-2022 Functional status Ambulates [facility] Work Phone: Mental Status Date Assessment Result Facility 06-26-2022 Cognitive function Voice/Name [facility] Work Phone: 04-16-2022 Cognitive function Voice/Name [facility] Work Phone: Clinical Notes 08-17-2018 to 02-25-2025 Anthony Hernandez PA - 02/25/2025 10:28 AM Lucinda Rodrigues - 02/21/2025 8:05 AM La Coppola RN - 02/21/2025 8:01 AM EDTPatient Instructions Note Date & Type Note Facility 02-25-2025 Note HNO ID: [id number] Author: ANTHONY HERNANDEZ PA Service: ? Author Type: Physician Digital Analyst Type: Progress Notes Filed: 02/25/2025 10:33 Note Text: [facility] Subjective Tanisha Salter is a 84 year old male. Patient presents with: Derm Problem: Possible athletes foot R foot x2 months HPI Rash: - Initial rash on the R foot and ankle noted a few months ago. - Rash has recently spread to the sides of the feet and ankles over the past week. - No pruritus or pain associated with the rash. - Noticed a new area on the side of the foot; uncertain if it is related to the rash or a result of trauma. - Technical Laboratory Asst did not comment on the rash during a recent visit. - Dermatology appointment scheduled in 3 weeks; patient is on a waitlist for an earlier appointment. Review of Systems Skin: (+) rash, (-) pruritus, (-) pain Objective BP 110/63 Pulse 79 Temp 36.4 ?C (97.5 ?F) Resp 18 Wt 84.5 kg (186 lb 4.6 oz) SpO2 97% BMI 25.27 kg/m? Physical Exam Vitals and nursing note reviewed. Constitutional: General: He is not in acute distress. Appearance: Normal appearance. He is not toxic-appearing. Cardiovascular: Pulses: Dorsalis pedis pulses are 2+ on the right side. Posterior tibial pulses are 2+ on the right side. Musculoskeletal: Feet: Feet: Right foot: Skin integrity: No warmth, dry skin or fissure. Toenail Condition: Fungal disease present. Comments: Patient has macular erythematous blanchable rash on back of right ankle, right lateral foot and a spot on the proximal second toe. Nontender. No vesicular lesions. It is flat. No drainage. No lymphatic streaking. No ulcerations. He does have fungal toenail disease, but no fissuring or fungal disease between the toes noted. Skin: General: Skin is warm and dry. Neurological: Mental Status: He is alert. {ASSESSMENT/PLAN: 1. Rash (R21) - Rash on lower extremities, non-pruritic, non-tender, with recent spread to toes; does not appear infectious on examination. - Differential diagnosis includes fungal vs vascular etiology? Normal pulses. Normal cap refill. Not painful. No purpura or petechiae. - Prescribed topical antifungal cream to be applied to all areas of erythema. - Advised to monitor for any changes, including increased pain or swelling. - Patient has a dermatology appointment scheduled in 3 weeks; instructed to maintain the appointment and inquire about waitlist opportunities for an earlier consultation. - Prescription sent to [facility] pharmacy. Recording using [employer] software for draft documentation of the visit was discussed with the patient/authorized b2b outside sales representative; all questions welcomed and answered. Patient/authorized b2b outside sales representative agreed to proceed History and Record Review External record(s) reviewed: prior outpatient record. Differential Diagnoses - Rash is more likely for the following reason(s): suggested by HANDP - Cellulitis is less likely for the following reason(s): HANDP not suggestive Disposition The patient was discharged. Procedures [facility] 02-25-2025 History of Presen t illness Narrative [facility] Subjective Tanisha Salter is a 84 year old male. Patient presents with: Derm Problem: Possible athletes foot R foot x2 months HPI Rash: - Initial rash on the R foot and ankle noted a few months ago. - Rash has recently spread to the sides of the feet and ankles over the past week. - No pruritus or pain associated with the rash. - Noticed a new area on the side of the foot; uncertain if it is related to the rash or a result of trauma. - Technical Laboratory Asst did not comment on the rash during a recent visit. - Dermatology appointment scheduled in 3 weeks; patient is on a waitlist for an earlier appointment. Review of Systems Skin: (+) rash, (-) pruritus, (-) pain Objective BP 110/63 Pulse 79 Temp 36.4 C (97.5 F) Resp 18 Wt 84.5 kg (186 lb 4.6 oz) SpO2 97% BMI 25.27 kg/m Physical Exam Vitals and nursing note reviewed. Constitutional: General: He is not in acute distress. Appearance: Normal appearance. He is not toxic-appearing. Cardiovascular: Pulses: Dorsalis pedis pulses are 2+ on the right side. Posterior tibial pulses are 2+ on the right side. Musculoskeletal: Feet: Feet: Right foot: Skin integrity: No warmth, dry skin or fissure. Toenail Condition: Fungal disease present. Comments: Patient has macular erythematous blanchable rash on back of right ankle, right lateral foot and a spot on the proximal second toe. Nontender. No vesicular lesions. It is flat. No drainage. No lymphatic streaking. No ulcerations. He does have fungal toenail disease, but no fissuring or fungal disease between the toes noted. Skin: General: Skin is warm and dry. Neurological: Mental Status: He is alert. {ASSESSMENT/PLAN: 1. Rash (R21) - Rash on lower extremities, non-pruritic, non-tender, with recent spread to toes; does not appear infectious on examination. - Differential diagnosis includes fungal vs vascular etiology? Normal pulses. Normal cap refill. Not painful. No purpura or petechiae. - Prescribed topical antifungal cream to be applied to all areas of erythema. - Advised to monitor for any changes, including increased pain or swelling. - Patient has a dermatology appointment scheduled in 3 weeks; instructed to maintain the appointment and inquire about waitlist opportunities for an earlier consultation. - Prescription sent to [facility] pharmacy. Recording using [employer] software for draft documentation of the visit was discussed with the patient/authorized b2b outside sales representative; all questions welcomed and answered. Patient/authorized b2b outside sales representative agreed to proceed History and Record Review External record(s) reviewed: prior outpatient record. Differential Diagnoses - Rash is more likely for the following reason(s): suggested by H&P - Cellulitis is less likely for the following reason(s): H&P not suggestive Disposition The patient was discharged. Procedures documented in this encounter [facility] 02-21-2025 Note HNO ID: [id number] Author: LUCINDA KOHLER, ? Service: ? Author Type: Physician Type: Progress Notes Filed: 02/21/2025 08:47 Note Text: Last saw pcp: 11/08/24 Subjective: Patient presents to clinic c/o painful toenails. They state that the nails are especially painful with shoe gear and pressure. Patient states that nails 1-5 b/l are painful. Patient admits to being diabetic. No other pedal complaints at this time. Patient states no change in medications or medical history since last visit. Objective: Patient presents to clinic ambulating in loafers Vasc: DP and PT pulses are palpable [...] (M79.674) Pain in toe of right foot (R09.89) Diminished pulses in lower extremity (E11.42) Diabetic polyneuropathy associated with type 2 diabetes mellitus (HCC) Plan: Patient was seen and evaluated. Nails 1-5 bilateral were debrided in length and thickness. Small bleed to left 3rd and 4th toe. Alcohol applied. Discussed dystrophic toenails. These are painful. Discussed periodic debridement vs removal of toenails. Patient is not interested in removal of the toenails. Patient was instructed on the continued importance of diabetic foot care along with proper diet and keeping their blood sugar under control to prevent complications. I stressed the importance of avoiding barefoot walking, wearing good shoes and inspection of feet. Patient is to RTC in 3-4 months. Lucinda Kohler DPM [facility] 02-21-2025 History of Presen t illness Narrative Last saw pcp: 11/08/24 Subjective: Patient presents to clinic c/o painful toenails. They state that the nails are especially painful with shoe gear and pressure. Patient states that nails 1-5 b/l are painful. Patient admits to being diabetic. No other pedal complaints at this time. Patient states no change in medications or medical history since last visit. Objective: Patient presents to clinic ambulating in loafers Vasc: DP and PT pulses are palpable [...] (M79.674) Pain in toe of right foot (R09.89) Diminished pulses in lower extremity (E11.42) Diabetic polyneuropathy associated with type 2 diabetes mellitus (HCC) Plan: Patient was seen and evaluated. Nails 1-5 bilateral were debrided in length and thickness. Small bleed to left 3rd and 4th toe. Alcohol applied. Discussed dystrophic toenails. These are painful. Discussed periodic debridement vs removal of toenails. Patient is not interested in removal of the toenails. Patient was instructed on the continued importance of diabetic foot care along with proper diet and keeping their blood sugar under control to prevent complications. I stressed the importance of avoiding barefoot walking, wearing good shoes and inspection of feet. Patient is to RTC in 3-4 months. Lucinda Kohler DPM Patient presents with: Left Foot - Established Patient, Follow Up, Diabetic Foot Care Right Foot - Established Patient, Follow Up, Diabetic Foot Care Patient presents for 2 month follow up diabetic foot/nail care. RAFAEL 12/20/24 documented in this encounter [facility] 02-21-2025 Instructions Lucinda Kohler - 02/21/2025 8:05 AM EDT Diabetes Foot Care Instructions When [...] (or decreased sensation in your feet) a energy director should always cut your toenails. Be Careful [...] Go to your health care provider or energy director to treat these conditions. documented in this encounter [facility] 02-21-2025 Note HNO ID: [id number] Author: LA FORRESTER RN Service: ? Author Type: Registered Nurse Type: Progress Notes Filed: 02/21/2025 08:47 Note Text: Patient presents with: Left Foot - Established Patient, Follow Up, Diabetic Foot Care Right Foot - Established Patient, Follow Up, Diabetic Foot Care Patient presents for 2 month follow up diabetic foot/nail care. [facility] 12/20/24 [facility] 02-13-2025 Progress note [facility] 02-13-2025 Progress note Note Date/Time February 13, 2025 8:30am [facility] [place] [address] OFFICE VISIT Date of Service: 02/13/25804 MR#: [id number] Acct: [id number] Name: TANISHA SALTER Rep #: [id number] : 1940 From: Jose cochran DO Age/Sex: 84/M Location: [facility] [place] Status: Signed Intake Vital Signs 07/18/24 08:56 01/23/25 14:51 02/13/25 08:07 Height 6 ft 6 ft 6 ft Weight: 187 lb 7 oz BMI 25.4 BP 130/71 H Blood Pressure Location Rt brachial Position Sitting Respiration 18 Pulse 65 Pulse Source Monitor Temp 97.8 F Temperature Source Temporal Artery Pulse Oximetry (%) 96 Oxygen Delivery Method room air Intake Visit Reasons: 8 MONTH F/U PROSTATE, PSA PRIOR Is patient in pain?: Yes (lower back) Pain scale (1-10): 8 Allergies Sulfa (Sulfonamide Antibiotics) Allergy (Verified 02/13/25 08:06) Fever and skin rash Tetanus Vaccines and Toxoid Allergy (Verified 02/13/25 08:06) Rash meperidine (From Demerol) Adverse Reaction (Verified 02/13/25 08:06) Vomiting Medications ?Medication ?Instructions ?Recorded ?Confirmed ?Type metformin 500 mg tablet,extended 500 mg PO DAILY 09/0702/13/25 History release 24 hr Tamsulosin Hcl 0.4 mg PO DAILY 07/13/23 History lisinopril 5 mg tablet 5 mg PO DAILY 01/11/2402/13 History aspirin 81 mg chewable tablet 81 mg PO QDAY 07/18/24 0 02/13/25 History rosuvastatin 20 mg tablet 20 mg PO QDAY 07/18/2402/13 History Have you fallen in the past year?: Yes PFSH PFSH Medical History Indwelling urethral catheter present Constipation Wears dentures Cancer Diabetes Arthritis High cholesterol Back pain Testicular cancer Home Medications ?Medication ?Instructions ?Recorded ?Last Taken ?Type metformin 500 mg tablet,extended 500 mg PO DAILY 09/07 Unknown History release 24 hr Tamsulosin Hcl 0.4 mg PO DAILY 07/13/23 Unk nown History lisinopril 5 mg tablet 5 mg PO DAILY 01/11/24 Unkno wn History aspirin 81 mg chewable tablet 81 mg PO QDAY 07/18/24 U nknown History rosuvastatin 20 mg tablet 20 mg PO QDAY 07/18/24 Unkno wn History Allergy/AdvReac Type Severity Reaction Status Date / Time Sulfa (Sulfonamide Allergy Fever and Verified 02/13/25 08:06 Antibiotics) skin rash Tetanus Vaccines and Toxoid Allergy Rash Verified 02/13/25 08:06 meperidine (From Demerol) AdvReac Vomiting Verified 02/13/25 08:06 Family History Father Heart disease Diabetes Mother Myocardial infarction Alzheimer disease Grandmother Cancer Sister Breast cancer Surgical History S/P TURP (status post transurethral resection of prostate) Hx of cystoscopy Hx of knee surgery History of removal of testicle Social History Smoking Status: Former smoker pack-years: 30 Tobacco: How many years used: 30 alcohol intake: current alcohol intake frequency: holidays/special occasions only substance use type: does not use diet: diabetic Diagnosis: Tanisha Salter is an 84-year-old male diagnosed with stage KHADRA prostate adenocarcinoma (cT3N1, 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 From 05/06/2022 ? 06/12/2022 he completed definitive radiation therapy with ADT. History of Present Illness: 01/13/2022: TRUS guided biopsy was performed.? This demonstrated Vic score 3+4 adenocarcinoma involving 50% of 1 core in the left prostate base.? All remaining biopsies were benign. 01/28/2022: Patient was seen by urology.? Treatment options were discussed and recommendation was to proceed with radiation therapy concurrent with ADT. 02/12/2022: MRI pelvis with and without contrast was performed.? This demonstrated a 1.3 x 0.9 cm moderately T2 hypointense lesion of the left lateraltransitional zone at the mid gland which is bright on DWI and dark on ADC map.? PI-RADS score 4.? There does appear to be extraprostatic extension by 3 mm laterally.? There is an enlarged left external iliac lymph node measuring 1.5 cm. 02/26/2022: PSMA PET scan was completed and this demonstrated evidence for a 1.3 cm hypodense lesion in the left posterior lateral prostate with increased SUV of11.5 which correlates to the lesion on the MRI.? There is also an enlarged lymphnode along the left pelvic sidewall measuring 1.4 x 1.8 cm posterior to the leftexternal iliac vein with an SUV of 17.2.? No other abnormalities are appreciated. 05/06/2022 ? 06/12/2022: received 7000 cGy to the prostate and proximal seminal vesicles, 6160 cGy delivered to the involved nikky disease within the left external iliac, 5600 cGy delivered to the upper seminal vesicles near large bowel, and 4760 cGy delivered to the elective nikky regions.? He was treated with a simultaneous integrated boost using a VMAT plan with 10 MV photons in 28 total fractions. 06/25/2022: Patient completed TURP due to having obstruction with retention of urine.? 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 10/09/2023: Patient completed transurethral resection of the bladder neck. Pathology demonstrated chronic inflammation with no evidence of malignancy. Radiation Treatment History: 1)?History of prior radiation therapy in 1982 for left testicular cancer. Unable to get any outside treatment records 2) 05/06/2022 ? 06/12/2022: received 7000 cGy to the prostate and proximal seminalvesicles, 6160 cGy delivered to the involved nikky disease within the left external iliac, 5600 cGy delivered to the upper seminal vesicles near large bowel, and 4760 cGy delivered to the elective nikky regions.? He was treated with a simultaneous integrated boost using a VMAT plan with 10 MV photons in 28 total fractions. Interval History: Patient returns for routine follow-up approximately 32 months after completing definitive radiation therapy. Following treatment he completed a TURP due to having urinary retention. He unfortunately had another episode of urinary retention in July 2023 and ended up having a repeat TURP this time of the bladder neck. He has been urinating well since then. He continues to take Flomax and finasteride each once per day. He does report having urgency more than half the time. He reports frequency and intermittency about half the time,and denies incomplete emptying, straining, weak stream. He has nocturia about twice per night. He does have occasional small-volume leakage of urine, wears apad. He does continue to have intermittent constipation, he does also however report a bowel frequency of about once per day, he is taking MiraLAX every otherday. He denies diarrhea, rectal pain. He does have occasional mild bleeding with hemorrhoid flares but this is very infrequent, denies bleeding otherwise. Energy level has been good and he remains somewhat active. He denies having cough, shortness of breath, chest pain, bone pain, unexpected weight changes. He is not currently sexually active. He completed 9 months of Eligard and then decided to stop after discussing with urology. He stays fairly active in his daily life but is limited due to back pain. He completes all ADLs without any difficulty. He denies having other problems or concerns at this time. Review of Systems: A 12-point review of systems was completed and was negative except for what is noted in the HPI/Interval History and by the nurse. Physical Exam: Weight: 187 lbs 7 oz ECO KARNOFSKY SCORE: 90% CONSTITUTIONAL: Well-developed, well-nourished, and in no apparent distress. NECK: Supple, no thyromegaly, and non-tender. Trachea midline. No cervical or supraclavicular adenopathy noted. CARDIAC: Regular rate and rhythm. Normal S1, S2. No murmurs, rubs, or gallops. PULMONARY/CHEST: Lungs are clear to auscultation and percussion bilaterally. No wheezes, rhonchi, or crackles noted. No increased work of breathing. ABDOMINAL: Abdomen soft, non-tender, non-distended. No hepatomegaly. Normoactivebowel sounds in all four quadrants. No guarding, rebound. BACK: Straight and aligned. No CVA tenderness. Axial skeleton non-tender to percussion. EXTREMITIES: Full range of motion in all four extremities. No evidence of edema. HYACINTH: Deferred PSYCHIATRIC: Appropriate mood and affect for the clinical situation. 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 From 05/06/2022 ? 06/12/2022 he completed definitive radiation therapy with ADT. Plan: Patient returns for routine follow-up approximately 32 months after completing definitive radiation therapy for node positive prostate cancer. PSA remains undetectable and he has no signs or symptoms concerning for development of disease progression or metastatic disease. He does have chronic low back pain which is stable and he sees pain management and his PCP for this. He continues with finasteride once per day and Flomax now once per day. He does not appear to have any other residual toxicity related to treatment and he does have good bowel function. He completed 9 months of Eligard and then he decided to stop ADT. For follow-up I recommend PSA every 6 months and we will have him return for a routine visit 6 months with a PSA prior. He was instructed to call with any further questions or concerns in the interim. Thank you for allowing me to participate in the management and care of your patient. If I may answer any questions in the interim, please do not hesitate tocontact me at any time. Jose You DO, MS [employer], Department of Radiation Oncology [facility] Coding Level of Care Code Off vis,est,level 3 Diagnoses Prostate cancer metastatic to intrapelvic lymph node C61; C77.5 02/13/25 4330 <Electronically signed by Jose You DO> Date _ Jose Gonzalez Signature: Date (if applicable) CC: ~ [facility] Work Phone: [phone]) 304-120706-10-2025 History of Present illness Narrative* Katarina Gibbs RT(R) - 02/07/2025 1:00 PM EDT Radiology Service Progress Note PATIENT NAME: Tanisha Salter DATE OF SERVICE: February 07, 2025 TIME: 1:20 PM PATIENT IDENTITY VERIFICATION COMPLETED USING TWO (2) IDENTIFIERS: Name and Date of confirmedby patient verbally. FALL SCREENING: Has the patient had 2 falls in the last year or 1 fall with injury or currently using an Ambulatory Assistive Device (Walker, Cane, Wheelchair, Crutches, etc.)? No PATIENT GENDER DATA: Assigned male at PATIENT RELEVANT IMPLANT DATA REVIEWED: Yes PATIENT PRESENTS WITH AN IMPLANTABLE OR ATTACHED FINANCIAL AID COORDINATOR: No RADIOLOGY DEPARTMENT: General X-ray: Exam(s) Completed: Abdomen X-Ray: Abdomen with Upright PERIPHERAL IV DATA: Not applicable SIGNED BY: BEBE Ruiz) February 07, 2025 1:20 PM [facility] NoteHNO ID: [id number] Author: KATARINA GIBBS RT(R) Service: ? Author Type: Technologist Type: Progress Notes Filed: 02/07/2025 13:34 Note Text: Radiology Service Progress Note PATIENT NAME: Tanisha Salter DATE OF SERVICE: February 07, 2025 TIME: 1:20 PM PATIENT IDENTITY VERIFICATION COMPLETED USING TWO (2) IDENTIFIERS: Name and Date of confirmed by patient verbally. FALL SCREENING: Has the patient had 2 falls in the last year or 1 fall with injury or currently using an Ambulatory Assistive Device (Walker, Cane, Wheelchair, Crutches, etc.)? No PATIENT GENDER DATA: Assigned male at PATIENT RELEVANT IMPLANT DATA REVIEWED: Yes PATIENT PRESENTS WITH AN IMPLANTABLE OR ATTACHED FINANCIAL AID COORDINATOR: No RADIOLOGY DEPARTMENT: General X-ray: Exam(s) Completed: Abdomen X-Ray: Abdomen with Upright PERIPHERAL IV DATA: Not applicable SIGNED BY: RT Joseph(R) February 07, 2025 1:20 [facility]06-10-2025 NoteHNO ID: [id number] Author: KAMLA CROWDER PA-C Service: ? Author Type: Physician Digital Analyst Type: Progress Notes Filed: 02/07/2025 11:10 Note Text: CHIEF COMPLAINT: Patient presents with: Nausea: Stomach discomfort, Gas, Alternating bowel habits HPI Tanisha Salter is a 84 year old male here today for Nausea (Stomach discomfort, Gas, Alternating bowel habits ) Daughter is present today. Patient notes that he is dealing with urgency and will have to strain to go. Stools are firm and complete. Notes that he is dealing with a ton of gas, very loud. Notes some bloating. Denies abdominal pain. Notes some nausea with the gas. Appetite is fine. Weight is stable. Trying to watch what he is eating. Notes he is eating a lot of fiber as well as taking Metamucil. Last OV with me 07/26/2024: Assessment/Plan (K59.00) Constipation, unspecified constipation type (primary encounter diagnosis) 1. Constipation, unspecified constipation type -- Patient with hard stools, moving bowels every few days with straining. -- Discussed Miralax in detail. Was helping but stopped it. Recommend restarting the medication. Can try it every other day. -- Recommend high fiber diet. Explained that apples can be constipated for some patients. Prunes, kiwi are good fruits for bowel movements. Follow up in office PRN. Current Outpatient Medications Medication Sig polyethylene glycol 3350 (MIRALAX) 17 gram/dose powder Take by mouth once daily. Dissolve dose in 4 - 8 ounces of liquid and take as directed. rosuvastatin (CRESTOR) 20 mg tablet Take 1 tablet by mouth daily at bedtime. aspirin, enteric coated (ADULT LOW DOSE ASPIRIN) 81 mg EC tablet Take 1 tablet by mouth once daily. lisinopril (ZESTRIL) 5 mg tablet Take 1 tablet by mouth once daily. metFORMIN (GLUCOPHAGE) 1,000 mg tablet Take 0.5 tablets by mouth once daily. Lancets Test blood sugar(s) 1 to 2 times daily. Dx: Type 2 DM - Controlled E11.9 Insulin: No blood sugar diagnostic (BLOOD GLUCOSE TEST) test strip Test blood sugar(s) 1-2 times daily. Dx: Type 2 DM - Controlled E11.9 Insulin: No tamsulosin (FLOMAX) 0.4 mg Take 0.4 mg by mouth once daily. No current facility-administered medications for this visit. 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 Lundberg [place]. s/p radiation Spinal stenosis lumbar. Dr. Abraham Testicular cancer (HCC) radiation- PAST SURGICAL HISTORY Procedure Laterality Date COLONOSCOPY 2012 normal CYSTOSCOPY 08/2023 HEMORRHOIDECTOMY 1960s ORCHIECTOMY SIMPLE Left 1983 testicular cancer, with radiation PAST SURGICAL HISTORY OF Left knee arthroscopy PAST SURGICAL HISTORY OF 10/2023 Bladder Surgery PAST SURGICAL HISTORY OF 10/09/2023 Revised surgery on bladder neck Dr. Lundberg TONSILLECTOMY HX childhood TRANSURETHRAL ELEC-SURG PROSTATECTOM 06/25/2022 FAMILY HISTORY Problem Relation Age of Onset Alzheimer's Disease Mother Heart Mother Diabetes Father Heart Father Cancer Sister No Known Problems Brother No Known Problems Maternal Grandmother No Known Problems Maternal Grandfather Diabetes Paternal Grandmother No Known Problems Paternal Grandfather Colon Cancer No Family History REVIEW OF SYSTEMS Review of Systems Gastrointestinal: Positive for abdominal pain and nausea. Change in Bowel Habits, Gas All other systems reviewed and are negative. PHYSICAL EXAM BP 118/74 Pulse 64 Ht 6' 0 (1.83m) Wt 189 lb (85.7kg) BMI 25.63 kg/(m2). Physical Exam Constitutional: Appearance: Normal appearance. HENT: Head: Normocephalic and atraumatic. Eyes: General: No scleral icterus. Extraocular Movements: Extraocular movements intact. Conjunctiva/sclera: Conjunctivae normal. Pupils: Pupils are equal, round, and reactive to light. Cardiovascular: Rate and Rhythm: Normal rate and regular rhythm. Pulses: Normal pulses. Heart sounds: Normal heart sounds. Pulmonary: Effort: Pulmonary effort is normal. Breath sounds: Normal breath sounds. Abdominal: General: Abdomen is flat. Bowel sounds are normal. Palpations: Abdomen is soft. Tenderness: There is no abdominal tendernes (more content not included)... [facility]06-10-2025 History of Present illness Narrative* Kamla Crowder PA-C - 02/07/2025 10:31 AM EDT CHIEF COMPLAINT: Patient presents with: Nausea: Stomach discomfort, Gas, Alternating bowel habits HPI Tanisha Salter is a 84 year old male here today for Nausea (Stomach discomfort, Gas, Alternating bowel habits ) Daughter is present today. Patient notes that he is dealing with urgency and will have to strain to go. Stools are firm and complete. Notes that he is dealing with a ton of gas, very loud. Notes some bloating. Denies abdominalpain. Notes some nausea with the gas. Appetite is fine. Weight is stable. Trying to watch what he is eating. Notes he is eating a lot of fiber as well as taking Metamucil. Last OV with me 07/26/2024: Assessment/Plan (K59.00) Constipation, unspecified constipation type (primary encounter diagnosis) 1. Constipation, unspecified constipation type -- Patient with hard stools, moving bowels every few days with straining. -- Discussed Miralax in detail. Was helping but stopped it. Recommend restarting the medication. Can try it every other day. -- Recommend high fiber diet. Explained that apples can be constipated for some patients. Prunes, kiwi are good fruits for bowel movements. Follow up in office PRN. Current Outpatient Medications Medication Sig polyethylene glycol 3350 (MIRALAX) 17 gram/dose powder Take by mouth once daily. Dissolve dose in 4- 8 ounces of liquid and take as directed. rosuvastatin (CRESTOR) 20 mg tablet Take 1 tablet by mouth daily at bedtime. aspirin, enteric coated (ADULT LOW DOSE ASPIRIN) 81 mg EC tablet Take 1 tablet by mouth once daily. lisinopril (ZESTRIL) 5 mg tablet Take 1 tablet by mouth once daily. metFORMIN (GLUCOPHAGE) 1,000 mg tablet Take 0.5 tablets by mouth once daily. Lancets Test blood sugar(s) 1 to 2 times daily. Dx: Type 2 DM - Controlled E11.9 Insulin: No blood sugar diagnostic (BLOOD GLUCOSE TEST) test strip Test blood sugar(s) 1-2 times daily. Dx: Type 2 DM - Controlled E11.9 Insulin: No tamsulosin (FLOMAX) 0.4 mg Take 0.4 mg by mouth once daily. No current facility-administered medications for this visit. 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 s/p radiation Spinal stenosis lumbar. Dr. Abraham Testicular cancer (HCC) radiation- PAST SURGICAL HISTORY Procedure Laterality Date COLONOSCOPY 2011 normal CYSTOSCOPY 08/2023 HEMORRHOIDECTOMY 1960s ORCHIECTOMY SIMPLE Left 1982 testicular cancer, with radiation PAST SURGICAL HISTORY OF Left knee arthroscopy PAST SURGICAL HISTORY OF 10/2023 Bladder Surgery PAST SURGICAL HISTORY OF 10/09/2023 Revised surgery on bladder neck Dr. Lundberg TONSILLECTOMY HX childhood TRANSURETHRAL ELEC-SURG PROSTATECTOM 06/25/2022 FAMILY HISTORY Problem Relation Age of Onset Alzheimer's Disease Mother Heart Mother Diabetes Father Heart Father Cancer Sister No Known Problems Brother No Known Problems Maternal Grandmother No Known Problems Maternal Grandfather Diabetes Paternal Grandmother No Known Problems Paternal Grandfather Colon Cancer No Family History REVIEW OF SYSTEMS Review of Systems Gastrointestinal: Positive for abdominal pain and nausea. Change in Bowel Habits, Gas All other systems reviewed and are negative. PHYSICAL EXAM BP 118/74 Pulse 64 Ht 6' 0 (1.83m) Wt 189 lb (85.7kg) BMI 25.63 kg/(m^2). Physical Exam Constitutional: Appearance: Normal appearance. HENT: Head: Normocephalic and atraumatic. Eyes: General: No scleral icterus. Extraocular Movements: Extraocular movements intact. Conjunctiva/sclera: Conjunctivae normal. Pupils: Pupils are equal, round, and reactive to light. Cardiovascular: Rate and Rhythm: Normal rate and regular rhythm. Pulses: Normal pulses. Heart sounds: Normal heart sounds. Pulmonary: Effort: Pulmonary effort is normal. Breath sounds: Normal breath sounds. Abdominal: General: Abdomen is flat. Bowel sounds are normal. Palpations: Abdomen is soft. Tenderness: There is no abdominal tenderness. Musculoskeletal: General: Normal range of motion. Cervical back: Normal range of motion and neck supple. Skin: General: Skin is warm and dry. Coloration: Skin is not jaundiced. Neurological: General: No focal deficit present. Mental Status: He is alert and oriented to person, place, and time. Psychiatric: Mood and Affect: Mood normal. Behavior: Behavior normal. Thought Content: Thought content normal. Judgment: Judgment normal. \ Assessment/Plan (R14.3) Excessive gas (primary encounter diagnosis) (R14.0) Bloating (R15.0) Incomplete passage of stool 1. Excessive gas (Primary) -- Patient with excessive gas and bloating. -- Does admit to eating a lot of fiber. Recommend increasing water intake. May want to try switching Metamucil to Benefiber. -- Will check celiac panel -- Will get abdominal x-ray r/o stool burden - XR ABDOMEN 2V ROUTINE SUPINE W UPRIGHT/DECUB/CTL; Future - CELIAC SCREEN WITH REFLEX; Future 2. Bloating -- Patient with excessive gas and bloating. -- Does admit to eating a lot of fiber. Recommend increasing water intake. May want to try switching Metamucil to Benefiber. -- Will check celiac panel -- Will get abdominal x-ray r/o stool burden - CELIAC SCREEN WITH REFLEX; Future 3. Incomplete passage of stool -- Patient admits to incomplete passage of stool and straining. -- Will check celiac panel -- Will get abdominal x-ray r/o stool burden - XR ABDOMEN 2V ROUTINE SUPINE W UPRIGHT/DECUB/CTL; Future Follow up in office 3 months/PRN. Recommended to please call office/go to ER if fever, chills, chest pain, SOB, diarrhea, nausea, emesis, worsening abdominal pain, dehydration occurs I spent a total of 20 minutes on the date of the service which included preparing to see the patient, [id number] patient care, completing clinical documentation, obtaining and/or reviewing separately obtained history, performing a medically appropriate examination, counseling and educating the pat ient/family/caregiver, and ordering medications, tests, or procedures. Kamla Crowder PA-C February 07, 2025 11:02 AM documented in this encounter[facility] [place] Radiology Diagnostic study note [facility] Imaging Services [address], [place] [id number] Abdomen/Pelvis without Cont MR#: [id number] Acct: [id number] Name: TANISHA SALTER Rep #: [id number] : 1940 M 84 From: Shea Cervantes MD PCP: Dr. Perfecto Warner MD Status: REG ER Study:Abdomen/Pelvis without Cont Date of Exa m: 01/23/25 Exam# [id number] Ordering Dr: Yomi Velazco DO PROCEDURE: ABDOMEN/PELVIS WITHOUT CONT 01/23/2025 REASON FOR EXAM: KIDNEY STONE TECHNIQUE: Abdomen and pelvis CT without intravenous contrast. Noncontrast technique limits evaluation of the abdominal and pelvic viscera. Coronal and Sagittal reconstruction series were provided. One or more dose reduction techniques were used (e.g., Automated exposure control, adjustment of the mA and/or kV according to patient size, use of iterative reconstruction technique). PATIENT PREPARATION: Per protocol ORAL CONTRAST TYPE: None. COMPARISON: None. FINDINGS: Lung bases: Bibasilar atelectasis. Tiny scattered pulmonary nodules (for example within the right lower lobe series 2, image 14). Severe coronary artery calcifications. Liver: The unopacified liver is normal in size. No biliary ductal dilation. Gallbladder: No radiopaque stones within the gallbladder. Spleen: Normal in size. Pancreas: The unopacified pancreas is unremarkable. Adrenals: No adrenal mass. Kidneys: No hydronephrosis or nephrolithiasis. Bladder: Minimally distended. Reproductive Organs: Prior TURP. Bowel: The bowel loops are normal in caliber. No ascites or pneumoperitoneum. No inflammatory mass in the expected region of the appendix. Lymph nodes: Visualization is limited without the use of IV contrast. No large lymphadenopathy. Vasculature: Moderate mixed atherosclerotic plaque throughout the aortoiliac vessels. Bones: Thoracolumbar spondylosis. Mild compression deformities of the lumbar vertebral bodies. Severe degenerative disc disease. CT/Abdomen/Pelvis without Cont IMPRESSION: 1. No acute abdominopelvic finding. 2. Scattered tiny pulmonary nodules, likely scarring or noncalcified granulomas. Comparison to prior imaging recommended. If no imaging available, follow-up CT chest in 1 month is recommended to evaluate for stability. Reading Location: [id number] CC: Dr. Perfecto Warner MD; Dr. Yomi Velazco DO ~ Driver'S License Reviewing Officer: Signed [facility]04-22-2025 NoteHNO ID: [id number] Author: LUCINDA KOHLER, ? Service: ? Author Type: Physician Type: Progress Notes Filed: 12/20/2024 08:22 Note Text: Last saw pcp: 11/08/24 Subjective: Patient presents to clinic c/o painful toenails. They state that the nails are especially painful with shoe gear and pressure. Patient states that nails b/l hallux are painful. Patient admits to being diabetic. No other pedal complaints at this time. Patient states no change in medications or medical history since last visit. Objective: Patient presents to clinic ambulating in [facility] Vasc: DP and PT pulses are faintly [...] bilateral were debrided in length and thickness. We discussed the possible etiologies of discolored, dystrophic, and thickened nails including fungus, yeast, mold as well as in some instances, prior trauma, or mechanical causes such as repetitive microtrauma in shoe gear. We discussed topical medication for discolored toenails which has very low success but no major side effects. We discussed oral medication. Patient will need hepatic testing prior to use. Patient informed of risks associated with Lamisil. We discussed removal of toenails. Patient has already tried topical medication. He may consider other options. Patient was instructed on the continued importance of diabetic foot care along with proper diet and keeping their blood sugar under control to prevent complications. I stressed the importance of avoiding barefoot walking, wearing good shoes and inspection of feet. I discussed how this patient suffers from neuropathy and that it is important that she monitor for any open wounds. If he develops any issues, he is to contact our office immediately and we will have them seen. Patient is to RTC in 3-4 months. Lucinda Vargassawyer [facility]04-22-2025 History of Present illness Narrative* Lucinda Kohler - 12/20/2024 8:07 AM EDT Last saw pcp: 11/08/24 Subjective: Patient presents to clinic c/o painful toenails. They state that the nails are especially painful with shoe gear and pressure. Patient states that nails b/l hallux are painful. Patient admits to being diabetic. No other pedal complaints at this time. Patient states no change in medications or medical history since last visit. Objective: [facility] V[facility]: DP and PT pulses are faintly palpable bilateral. CFT is less than 5 seconds bilateral. Skin temperature is warm to cool proximal to distal bilateral. There is no edema or varicosities noted. Neuro: Protective sensation is intact to the foot and toes when tested with the 5.07 SWM bilateral.Vibratory sensation is absent at the hallux IPJ [...] bilateral were debrided in length and thickness. We discussed the possible etiologies of discolored, dystrophic, and thickened nails including fungus, yeast, mold as well as in some instances, prior trauma, or mechanical causes such as repetitive microtrauma in shoe gear. We discussed topical medication for discolored toenails which has very low success but no major side effects. We discussed oral medication. Patient will need hepatic testing prior to use. Patient informed of risks associated with Lamisil. We discussed removal of toenails. Patient has already tried topical medication. He may consider other options. Patient was instructed on the continued importance of diabetic foot care along with proper diet andkeeping their blood sugar under control to prevent complications. I stressed the importance of avoiding barefoot walking, wearing good shoes and inspection of feet. I discussed how this patient suffers from neuropathy and that it is important that she monitor for any open wounds. If he develops anyissues, he is to contact our office immediately and we will have them seen. Patient is to RTC in 3-4 months. Lucinda Kohler DPM * Evelina Carr LPN - 12/20/2024 8:05 AM EDT AMB ROOMING INTAKE FLOWSHEET DATA Patient presents with: Left Foot - Established Patient, Follow Up, Diabetic Foot Check Right Foot - Established Patient, Follow Up, Diabetic Foot Check Evelina Carr LPN [facility] NoteHNO ID: [id number] Author: EVELINA CARR LPN Service: ? Author Type: LICENSED NURSE Type: Progress Notes Filed: 12/20/2024 08:22 Note Text: AMB ROOMING INTAKE FLOWSHEET DATA Patient presents with: Left Foot - Established Patient, Follow Up, Diabetic Foot Check Right Foot - Established Patient, Follow Up, Diabetic Foot Check [facility] Evaluation note* Diagnosis Onset Date Resolution Status Admit Date Osteopenia determined by x-ray acute November 25, 2024 8:21am Spinal stenosis of lumbar re gion with neurogenic claudication acute Oct 8:21am Spondylolisthesis, lumbar region acu te November 25, 2024 8:21am [facility] Work Phone: [phone] Evaluation note* Diagnosis Onset Date Resolution Status Admit Date Osteopenia determined by x-ray acute November 25, 2024 8:21am Spinal stenosis of lumbar re gion with neurogenic claudication acute Mar 2024 8:21am Spondylolisthesis, lumbar region acu te November 25, 2024 8:21am 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 Author Type: Occupational Therapist Type: Progress Notes Filed: 11/15/2024 09:51 Note Text: 11/15/2024 [facility] OCCUPATIONAL THERAPY DISCONTINUANCE OF CARE Plan of Care Period: Start of Care Date: 09/02/24 Last Visit Date: 09/02/2024 Therapy Program: Patient did not return for follow up care as planned. Please refer to last visit note for interventions provided for this episode of care. Assessment: Unable to formally assess goal achievement. Reason for Discontinuation of Care: Patient has not returned to therapy or scheduled additional follow-up appointments. JORGE Carrington/[facility]03-18-2025 History of Present illness Narrative* Dianna Valencia MD - 11/15/2024 9:45 AM EDT Images from the original note were not included. [facility] [place] [facility] Tristan Department of Cardiovascular Medicine SECTION OF VASCULAR MEDICINE OUTPATIENT VISIT DATE November 15, 2024 OUTPATIENT VISIT TYPE CONSULT Name: Tanisha Salter Tanisha Salter is a 84 year old male with a past history as outlined below presenting today forinitial Vascular Medicine consult regarding abnormal vascular imaging. . EMR and chart reviewed. Born 1940 in [place], lived there for 30 years. Healthy as a child, nodevelopmental milestone issues. No congenital limb discrepancy or vascular malformations. FH reviewed for any significant vascular issues.FH of heart disease. Extensive records reviewed including progress notes, specialty consultations, procedure notes, hospital notes, labs, vascular testing, triage notes, and available applicable information in regard to initial vascular consultation. Referral information and appropriate triages were perused as well. Records, charts and EMR perused and reviewed at length prior to initial visit as necessary. PMH reviewed. No history of stroke, LA, TIA. No history of VTE or thrombophila. History of testicular and prostate cancer. Had 5 weeks of RT.. No history of HTN, or hyperlipidemia. Patient has a history of spinal stenosis and chronic back pain and sees pain management. He has a history of BPH and prostate cancer. He follows with oncology. He has a history of hypertension, hyperlipidemia, and diabetes. Patient follows closely with his primary care team. At his recent visit and abdominal aorta ultrasound was ordered and showed a mildly dilated aorta at 2.4 cm which was similar to his CT scan from last year. He was noted to have evidence of atherosclerosis and concern for aortic disease and was recommended a vascular medicine evaluation. Patient presented to [facility] in May 2024 towards this end. Patient has chronic back pain from spinal stenosis. Uses cane, LBP only, no calf, buttock or thigh claudication. No digital color changes. No limb swelling or new skin changes. No neurovascular symptoms. No chest pain, SOB or SALAZAR. Medications reviewed and discussed, on metformin, statin and ACEI. Aspirin naive. Lives in [place]. Daughter accompanied patient at the time of initial consultation. Has two daughters, one lives close by. Quit smoking in the . No special diet. Used to exercise but backissues preclude some of his exercises. Retired from [employer], moved to [place] about 6 years ago. Is a . Has 6 grand kids. Used to play [employer], likes the beach and to travel. Patient was seen in May 2024 for for initial vascular medicine consultation as outlined above. The patient presented to the [facility] in October 2024 for follow-up. Today on interview, the patient feels well and is compliant with his medications. Follows well with his PCP. Of note, is having s ignificant back pain from his spine, which is being managed elsewhere. He denies chest pain, SOB, abdominal pain, or claudication. Patient has no new leg swelling. He is compliant with medications. 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 s/p radiation Spinal stenosis lumbar. Dr. Abraham Testicular cancer (HCC) radiation- 1980s PAST SURGICAL HISTORY Procedure Laterality Date COLONOSCOPY 2012 normal CYSTOSCOPY 08/2023 HEMORRHOIDECTOMY 1960s ORCHIECTOMY SIMPLE Left 1983 testicular cancer, with radiation PAST SURGICAL HISTORY OF Left knee arthroscopy PAST SURGICAL HISTORY OF 10/2023 Bladder Surgery PAST SURGICAL HISTORY OF 10/09/2023 Revised surgery on bladder neck Dr. Lundberg TONSILLECTOMY HX childhood TRANSURETHRAL ELEC-SURG PROSTATECTOM 06/25/2022 FAMILY HISTORY Problem Relation Age of Onset Alzheimer's Disease Mother Heart Mother Diabetes Father Heart Father Cancer Sister No Known Problems Brother No Known Problems Maternal Grandmother No Known Problems Maternal Grandfather Diabetes Paternal Grandmother No Known Problems Paternal Grandfather Colon Cancer No Family History Review of Systems: Reviewed and completed per patient questionnaire, all others negative unless otherwise stated in the HPI. Const: Denies anorexia, fever, night sweats and weight change. Eyes: Denies abnormal vision, pain and visual disturbance. ENMT: Denies discharge from the ears, ear pain and tinnitus. Denies altered smell and soreness. Denies dysphagia and sore throat. CV: Denies chest pain, diaphoresis and syncope. Resp: Denies cough, orthopnea, PND, SOB and wheezing. GI: Denies abdominal pain, change in appetite, diarrhea, hematemesis, hematochezia and melena. Musculo: Denies musculoskeletal symptoms other than outlined above. Skin: Denies skin, hair and nail symptoms other than outlined above. Neuro: Denies symptoms other than stated above. Endocrine: Denies intolerance to heat, intolerance to cold, polydipsia, polyphagia and polyuria. [place]: Denies bleeding/bruising tendency Vascular: As above ALLERGIES Allergen Reactions Demerol [Meperidine] Vomiting Sulfa (Sulfonamide * Unknown Elevated temperature Tetanus Toxoid Hives rosuvastatin (CRESTOR) 20 mg tablet, Take 1 tablet by mouth daily at bedtime., Disp: 90 tablet, Rfl: 3 aspirin, enteric coated (ADULT LOW DOSE ASPIRIN) 81 mg EC tablet, Take 1 tablet by mouth once daily., Disp: 30 tablet, Rfl: 5 lisinopril (ZESTRIL) 5 mg tablet, Take 1 tablet by mouth once daily., Disp: 90 tablet, Rfl: 1 metFORMIN (GLUCOPHAGE) 1,000 mg tablet, Take 0.5 tablets by mouth once daily., Disp: 45 tablet, Rfl: 1 [DISCONTINUED] rosuvastatin (CRESTOR) 20 mg tablet, take 1 tablet by mouth at bedtime, Disp: 90 tablet, Rfl: 3 meloxicam (MOBIC) 7.5 mg tablet, Take 7.5 mg by mouth once daily., Disp: , Rfl: [DISCONTINUED] albuterol HFA (VENTOLIN HFA) 90 mcg/actuation inhaler, Inhale 2 Puffs as instructed every 4 hours as needed for wheezing/shortness of breath. (Patient not taking: Reported on 08/01/2024), Disp: 1 Each, Rfl: 1 Lancets, Test blood sugar(s) 1 to 2 times daily. Dx: Type 2 DM - Controlled E11.9 Insulin: No, Disp: 100 Each, Rfl: 11 blood sugar diagnostic (BLOOD GLUCOSE TEST) test strip, Test blood sugar(s) 1-2 times daily. Dx: Type 2 DM - Controlled E11.9 Insulin: No, Disp: 50 Strip, Rfl: 11 [DISCONTINUED] aspirin, enteric coated (ADULT LOW DOSE ASPIRIN) 81 mg EC tablet, Take 1 tablet by mouth once daily., Disp: 30 tablet, Rfl: 5 tamsulosin (FLOMAX) 0.4 mg, Take 0.4 mg by mouth once daily., Disp: , Rfl: No facility-administered encounter medications on file as of 11/15/2024. Physical Examination: BP 130/56 Pulse 70 Wt 194 lb (88.0kg) Const: Appears well nourished. Appears to weigh within normal range. No signs of acute distress present. Speech is clear and appropriate. Alert and oriented. Height is within normal range. Exhibits good posture. Eyes: Conjunctivae clear. Eyelids normal and palpebral fissures equal. No discharge from the eyes. Sclerae are white and without lesions. HEENT: No bifid uvula. Neck is supple and symmetric. No masses appreciated. Trachea midline. Thyroid exhibits no nodule or thyromegaly. No JVD. Resp: Respirations are regular. No use of accessory muscles noted. No intercostal retraction. No wheezing. AP diameter is unremarkable. Chest inspection and palpation reveals no lesions or tenderness. Normal and symmetrical fremitus throughout. Auscultate good airflow. Lungs are clear bilaterally. No prolonged inspiration to expiration ratio. CV: Precordium: no lifts or thrills. Rate is regular. Rhythm is regular. Carotids: 2+ and equal bilaterally, without bruits. Skin: No clubbing, cyanosis or edema. GI: Bowel sounds are normoactive. Abdomen is soft, non tender, and non distended. No abdominal masses palpable. Musculo: Walks with a normal gait for age. Upper Extremities: Strength: Normal and symmetric. Full ROM bilaterally. Lower Extremities: Strength: Normal and symmetric. Full ROM bilaterally. Of note, is walking with a cane Psych: Alert and oriented x 3. Cooperative during examination. Neuro: No gross sensory or motor deficits. Heme/Lymph: No obvious bruising or adenopathy. Vascular: Femoral pulses: 2+ and equal bilaterally, without bruits. Peripheral pulses intact, no livedo or ulcerations, DP 2+ with normal tones, no abdominal bruits, no limb swelling or digital colorchanges, no CVI changes. Labs: Component Ref Range & Units 11 d ago 1 yr ago 2 yr ago 3 yr ago 5 yr ago 6 yr ago Total Cholesterol, Nonfasting <200 mg/dL 119 151 CM 131 CM 145 CM 142 CM 139 CM Comment: <200 mg/dL, Desirable 200-239 mg/dL, Borderline high >239 mg/dL, High Triglycerides, Nonfasting <150 mg/dL 148 133 CM 111 CM 138 CM 156 High CM 120 CM Comment: <150 mg/dL, Normal 150-199 mg/dL, Borderline high 200-499 mg/dL, High >499 mg/dL, Very high HDL Cholesterol, Nonfasting >39 mg/dL 48 40 CM 46 CM 44 CM 36 Low CM 40 CM Comment: 40-59 mg/dL, Acceptable >59 mg/dL, High: Negative risk factor for coronary heart disease <40 mg/dL, Low: Positive risk factor for coronary heart disease LDL Cholesterol, Nonfasting <100 mg/dL 41 84 CM 63 CM 73 CM 75 CM 75 Latest Ref Rng 11/04/2024 WBC 3.70 - 11.00 k/uL 5.38 RBC 4.20 - 6.00 m/uL 4.33 Hemoglobin 13.0 - 17.0 g/dL 13.2 Hematocrit 39.0 - 51.0 % 40.0 MCV 80.0 - 100.0 fL 92.4 MCH 26.0 - 34.0 pg 30.5 MCHC 30.5 - 36.0 g/dL 33.0 RDW-CV 11.5 - 15.0 % 12.9 Platelet Count 150 - 400 k/uL 209 MPV 9.0 - 12.7 fL 9.5 Neut% % 65.7 Abs Neut (ANC) 1.45 - 7.50 k/uL 3.54 Lymph% % 21.6 Abs Lymph 1.00 - 4.00 k/uL 1.16 Brule% % 9.5 Abs Brule <0.87 k/uL 0.51 Eosin% % 1.5 Abs Eosin <0.46 k/uL 0.08 Baso% % 1.3 Abs Baso <0.11 k/uL 0.07 Immature Gran % % 0.4 IMMATURE GRANS (ABS) <0.10 k/uL <0.03 NRBC /100 WBC 0.0 Absolute nRBC <0.01 k/uL <0.01 DTYPE Auto Protein, Total 6.3 - 8.0 g/dL 7.4 Albumin 3.9 - 4.9 g/dL 4.5 Calcium 8.5 - 10.2 mg/dL 9.8 Bilirubin, Total 0.2 - 1.3 mg/dL 0.3 Alkaline Phosphatase 38 - 113 U/L 56 AST 14 - 40 U/L 23 ALT 10 - 54 U/L 20 Glucose 74 - 99 mg/dL 100 (H) BUN 9 - 24 mg/dL 13 Creatinine 0.73 - 1.22 mg/dL 1.01 Sodium 136 - 144 mmol/L 140 Potassium 3.7 - 5.1 mmol/L 5.0 Chloride 98 - 107 mmol/L 102 CO2 22 - 30 mmol/L 27 Anion Gap 8 - 15 mmol/L 11 eGFR >=60 mL/min/1.73m 73 Total Cholesterol, Nonfasting <200 mg/dL 119 Triglycerides, Nonfasting <150 mg/dL 148 HDL Cholesterol, Nonfasting >39 mg/dL 48 LDL Cholesterol, Nonfasting <100 mg/dL 41 Non HDL Cholesterol, Nonfasting <130 mg/dL 71 VLDL Cholesterol, Nonfasting <30 mg/dL 30 (H) Total Chol/HDL Ratio, Nonfasting <5.10 mg/dL 2.48 LDL/HDL Ratio, Nonfasting <2.54 mg/dL 0.85 Hemoglobin A1C 4.3 - 5.6 % 6.4 (H) Estimated Average Glucose mg/dL 137 Legend: (H) High Imagin03/08/2024 7:32 AM - Radiology, [place] In Impression IMPRESSION: NEGATIVE STUDY FOR ABDOMINAL AORTIC ANEURYSM. Ectasia of the mid abdominal aorta with atheromatous plaque and mural thrombus. Grossly stable allowing for difference in imaging technique IMPRESSION 05/17/2024: AORTA Proximal: PSV: 37 cm/s. EDV: 10 cm/s. 2.84 cm x 2.83 cm At renal: PSV: 64 cm/s. EDV: 13 cm/s. 2.27 cm x 2.30 cm Mid: PSV: 79 cm/s. EDV: 6 cm/s. 2.57 cm x 2.52 cm Distal: PSV: 129 cm/s. EDV: 0 cm/s. 1.84 cm x 1.90 cm Heterogeneous plaque in the abdominal aorta throughout. Homogeneous and heterogeneous plaque in the abdominal aorta at mid. Mural thrombus seen in the abdominal aorta at mid. RIGHT VESSELS Common iliac origin: PSV: 118 cm/s. EDV: 13 cm/s. 1.35 cm x 1.32 cm Common iliac proximal: PSV: 87 cm/s. EDV: 4 cm/s. 1.35 cm x 1.31 cm Common iliac mid: PSV: 63 cm/s. EDV: 6 cm/s. 1.58 cm x 1.57 cm Common iliac distal: PSV: 53 cm/s. EDV: 5 cm/s. 1.39 cm x 1.35 cm Internal iliac proximal: PSV: 36 cm/s. EDV: 3 cm/s. 0.80 cm x 0.77 cm Calcified and heterogeneous plaque in the common iliac artery throughout. LEFT VESSELS Common iliac origin: PSV: 112 cm/s. EDV: 0 cm/s. 1.18 cm x 1.18 cm Common iliac proximal: PSV: 80 cm/s. EDV: 0 cm/s. 1.23 cm x 1.24 cm Common iliac mid: PSV: 70 cm/s. EDV: 0 cm/s. 1.17 cm x 1.16 cm Common iliac distal: PSV: 128 cm/s. EDV: 0 cm/s. 1.26 cm x 1.24 cm Internal iliac proximal: PSV: 40 cm/s. EDV: 6 cm/s. 0.79 cm x 0.74 cm Calcified and shadowing plaque in the common iliac artery throughout. AORTA Aorta appears ectatic measuring 2.57 x 2.52 at mid. RIGHT VESSELS Common iliac artery appears ectatic measuring 1.58 x 1.57 cm at mid. Internal iliac artery plaque noted without evidence of hemodynamically significant stenosis . LEFT VESSELS Common iliac artery patent without evidence of aneurysm throughout. Internal iliac artery plaque noted without evidence of hemodynamically significant stenosis at proximal. Assessment & Plan: 1. Atherosclerosis and ectasia of abdominal aorta At the time of initial consultation this was a very pleasant 84-year-old male with a past medical history as outlined above who had recent aortic duplex imaging of aorta atherosclerosis and ectatic enlargement. Patient presented for initial vascular medicine consultation in May 2024. At that time he had no evidence of leg claudication, distal embolization, or other worrisome vascular symptoms. Patient does have a history of spinal stenosis and his back pain is his most salient symptom. Wediscussed atherosclerosis at length including inflammatory pathophysiology, natural history and potential complications, and importance of surveillance. We discussed the use of antiplatelet agents including aspirin and clopidogrel at length including literature support for primary (high risk) and secondary prevention. We discussed antiplatelet regimens, bleeding risk, and risk/benefit ratio at length. We discussed the importance of blood pressure control at length as well. We discussed present medication regimen, blood pressure targets given the latest literature and iteration of the JNC and AHA/ACC, and the importance of blood pressure monitoring and medication compliance. We discussed the importance of lipid control at length also. Vascular disease as a coronary heart disease equivalent discussed at length and in detail with patient. The relationship between vascular disease and lipids reviewed and discussed. The role of statins was emphasized and discussed as well, especially regarding plaque stabilization benefits and its pleotrophic effects on plaque and atherosclerosis. The new ALTAF guidelines and patient stratification based, and CHD equivalents reviewed and discussed with patient. Lipid fractions including HDL, LDL, triglycerides and Non-HDL cholesteroldiscussed with patient as appropriate. If appropriate and clinically indicated, we discussed the relationship between vascular disease andtobacco use at length, as well as the importance of smoking cessation. The strong relationship between vascular disease and tobacco use discussed at length with patient. Also discussed was the interaction of nicotine with other risk factors and its effect on endothelial dysfunction and vascular disease progression. The health risks of tobacco use were discussed at length and in detail with the patient. The relationship between male gender, age, and smoking history to risk of AAA discussed as well as appropriate. AAA screening reviewed and discussed as appropriate as well. If appropriate and clinically indicated, we discussed the relationship between diabetes, tight diabetic control, and vascular disease with patient. The relationship between diabetes and vascular disease was reviewed and discussed with patient. Glucose control and prevention of micro/macrovascular co mplications of DM discussed as well. We also discussed the importance of diet and exercise and the positive impact of a regular exerciseprogram as well as a low fat/cholesterol diet. We provided local resources for patients to explore including bed laborer, local fitness centers, and personal trainers if clinically appropriate. Multiple handouts and teaching aids provided as necessary to reinforce learning and enhance the patient's understanding of the importance of aggressive risk factor modification as it relates to vascular disease. We discussed the importance of aggressive plaque stabilization and regression strategies, risk factor mitigation, and optimal medical therapies. At that time we recommended to add antiplatelet therapy with aspirin given the results of his aorta duplex done earlier today. We did change his statin torosuvastatin given the literature support for plaque stabilization and regression data. We felt he would need a high intensity statin, blood pressure control and is presently on an WINSOME inhibitor, andwe discussed the importance of walking program, diet, weight loss, and exercise. He did at that time have evidence of aorta enlargement but does not meet the criteria for an aneurysm. We would recommend annual aortic duplex. Handouts and education were provided at length time of initial consultation to the patient and his daughter. At that time we recommended to on follow-up in October 2024 follow-up with the patient in 6 months. At that time we discussed continued medical therapy with his ASA 81, lisinopril, and rosuvastatin therapy. He endorses continued compliance with this medication. 2. Hyperlipidemia, unspecified hyperlipidemia type Vascular disease as a coronary heart disease equivalent discussed at length and in detail with patient. The relationship between vascular disease and lipids reviewed and discussed. The role of moderate and high dose statins was emphasized and discussed as well. Discussed recent guidelines and CHDequivalents reviewed and discussed with patient. Discussed plaque stabilization regimen at length with patient including the anti-inflammatory properties of statins and present thinking regarding dosing versus lipid level targets. Discussed statinsas one of the mainstays of therapies in the treatment of atherosclerosis as well as optimal medicaltherapy, risk factor management, and lifestyle modification. Discussed importance of lipid control at length with patient. Reviewed present evidenced based clinical guidelines and targets with patient. Patient is presently on a statin and at the time of initial consultation was transition to rosuvastatin at high intensity. We reviewed and discussed his previous lipid profiles, discussed lipid targets, and the importance of high intensity statins in patients with underlying atherosclerosis. Patient was prescribed high intensity rosuvastatin.We reviewed his follow up FLP with LDL now down to 44. 3. Essential hypertension Blood pressure measurements discussed at length with patient including the importance of control, medications usage, and parameters based on recent peer reviewed guidelines. We discussed blood pressure targets based on clinical situation, cardiovascular status and hemodynamic subsets. Blood pressure is under adequate control at the present time. Would continue present treatment as appropriate andcontinue surveillance regimen. 4. History of diabetes mellitus The relationship between diabetes and vascular disease was reviewed and discussed with patient. Glucose control and prevention of micro/macrovascular complications of DM discussed as well. Discussed previous thinking that diabetes is more of a microvascular disease, and recent studies outlining macrovascular disease risk as well. Discussed medications including categories of diabetes medications that are now shown to impart a favorable cardiovascular outcome including metformin, and new medications. On metformin, last hgb A1c was 6.3. Plan: -Continue ASA 81, rosuvastatin 20, and lisinopril 5 mg -Follow-up with Dr. Valencia in about 6 months with repeat AAA duplex US -If stable, can space out visits to once yearly screening visits Jr Canada MD Vascular Medicine Fellow PGY4 November 15, 2024 10:33 AM [facility] STAFF PHYSICIAN NOTE OF PERSONAL INVOLVEMENT IN CARE I have reviewed the documentation obtained and documented by the Fellow and have reviewed and updated the problem list as appropriate.?I have personally performed a face to face assessment of the patient and have personally participated in the zuniga assessment and decision-making components. I have di scussed the case and management of the patient's care. The patient was interviewed and examined with the fellow, resident, or medical student present and I personally supervised the care, evaluation,and recommendations in the chart. I have reviewed the history and physical examination and/or progress notes obtained and documented, and I personally participated in the zuniga components as outlined above. I have discussed the case and management of the patient's care with the patient, involved caregivers, and family members as appropriate.. I agree with the above recommendations. Thank you for this kind consultation. Please feel free to call us with any questions or concerns. ? Holli Valencia M.D., FACP, FSVM, FACC, RPVI Staff Physician Section of Vascular Medicine Jeanne Tristan Department of Cardiovascular Medicine Heart and V[facility] [place] [facility] Desk J3[facility] Cell Office Office Appointments: [phone] documented in this encounterSelect [facility] [place]03-18-2025 NoteHNO ID: [id number] Author: DIANNA VALENCIA MD Service: ? Author Type: Physician Type: Progress Notes Filed: 11/15/2024 11:49 Note Text: Heart [facility] V[facility] [place] June and Savanah Tristan Department of Cardiovascular Medicine SECTION OF VASCULAR MEDICINE OUTPATIENT VISIT DATE November 15, 2024 OUTPATIENT VISIT TYPE CONSULT Name: Tanisha Salter Tanisha Salter is a 84 year old male with a past history as outlined below presenting today for initial Vascular Medicine consult regarding abnormal vascular imaging. . EMR and chart reviewed. Born 1940 in [place], lived there for 30 years. Healthy as a child, no developmental milestone issues. No congenital limb discrepancy or vascular malformations. FH reviewed for any significant vascular issues.FH of heart disease. Extensive records reviewed including progress notes, specialty consultations, procedure notes, hospital notes, labs, vascular testing, triage notes, and available applicable information in regard to initial vascular consultation. Referral information and appropriate triages were perused as well. Records, charts and EMR perused and reviewed at length prior to initial visit as necessary. PMH reviewed. No history of stroke, LA, TIA. No history of VTE or thrombophila. History of testicular and prostate cancer. Had 5 weeks of RT.. No history of HTN, or hyperlipidemia. Patient has a history of spinal stenosis and chronic back pain and sees pain management. He has a history of BPH and prostate cancer. He follows with oncology. He has a history of hypertension, hyperlipidemia, and diabetes. Patient follows closely with his primary care team. At his recent visit and abdominal aorta ultrasound was ordered and showed a mildly dilated aorta at 2.4 cm which was similar to his CT scan from last year. He was noted to have evidence of atherosclerosis and concern for aortic disease and was recommended a vascular medicine evaluation. Patient presented to [facility] in May 2024 towards this end. Patient has chronic back pain from spinal stenosis. Uses cane, LBP only, no calf, buttock or thigh claudication. No digital color changes. No limb swelling or new skin changes. No neurovascular symptoms. No chest pain, SOB or SALAZAR. Medications reviewed and discussed, on metformin, statin and ACEI. Aspirin naive. Lives [place]. Daughter accompanied patient at the time of initial consultation. Has two daughters, one lives close by. Quit smoking in the . No special diet. Used to exercise but back issues preclude some of his exercises. Retired from [employer], moved to [place] about 6 years ago. Is a . Has 6 grand kids. Used to play [employer], likes the beach and to travel. Patient was seen in May 2024 for for initial vascular medicine consultation as outlined above. The patient presented to the [facility] in October 2024 for follow-up. Today on interview, the patient feels well and is compliant with his medications. Follows well with his PCP. Of note, is having significant back pain from his spine, which is being managed elsewhere. He denies chest pain, SOB, abdominal pain, or claudication. Patient has no new leg swelling. He is compliant with medications. 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 s/p radiation Spinal stenosis lumbar. Dr. Abraham Testicular cancer (HCC) radiation- PAST SURGICAL HISTORY Procedure Laterality Date COLONOSCOPY 2011 normal CYSTOSCOPY 08/2023 HEMORRHOIDECTOMY 1960s ORCHIECTOMY SIMPLE Left 1983 testicular cancer, with radiation PAST SURGICAL HISTORY OF Left knee arthroscopy PAST SURGICAL HISTORY OF 10/2023 Bladder Surgery PAST SURGICAL HISTORY OF 10/09/2023 Revised surgery on bladder neck Dr. Lundberg TONSILLECTOMY HX childhood TRANSURETHRAL ELEC-SURG PROSTATECTOM 06/25/2022 FAMILY HISTORY Problem Relation Age of Onset Alzheimer's Disease Mother Heart Mother Diabetes Father Heart Father Cancer Sister No Known Problems Brother No Known Problems Maternal Grandmother No Known Problems Maternal Grandfather Diabetes Paternal Grandmother No Known Problems Paternal Grandfather Colon Cancer No Family History Review of Systems: Reviewed and completed per patient questionnaire, all others negative unless otherwise stated in the HPI. Const: Denies anorexia, fever, night sweats and weight change. Eyes: Denies abnormal vision, pain and visual disturbance. ENMT: Denies discharge from the ears, ear pain and tinnitus. Denies altered smell and soreness. Denies dysphagia and sore throat. CV: Denies chest pain, diaph (more content not included)...[facility]03-11-2025 NoteHNO ID: [id number] Author: YOLANDE WARNER MD Service: ? Author Type: Physician Type: Progress Notes Filed: 11/08/2024 09:03 Note Text: Chief Complaint Patient presents with: Follow Up: 6 month HPI Tanisha Salter is a 84 year old male who presents here today [...] HgA1C was Hemoglobin A1C (%) Date Value 11/04/2024 6.4 05/09/2024 6.3 10/18/2021 6.3 04/17/2021 6.4 ) Last Ophthalmology exam was within the past 12 months Last Podiatry exam was within the past 12 months Patient following up with Dr. Abraham pain management for chronic lower back pain and lumbar spinal stenosis. States that he has an MRI scheduled for his lower back in 2 days due to worsening pain in his lower back. Needing cane for ambulation now. Cannot stand for more than 4-5 minutes due to pain. Has had 3 medial branch blocks and 2 ADRIANO without improvement. On Meloxicam tylenol for pain which is not helping either. Not really interested in surgery. 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 Lundberg. Stopped his finasteride at last OV. Taking Flomax. Denies weak stream, straining, dysuria, hematuria. Getting up 2 times at night. Following up with oncology Dr. Haile at [facility] for history of prostate cancer s/p radiation. Last PSA was 0. Rechecking PSA every 6 months. Past medical history, appointments, medications, allergies reviewed. 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 s/p radiation Spinal stenosis lumbar Testicular cancer (HCC) radiation- Previous Surgical History PAST SURGICAL HISTORY Procedure Laterality Date COLONOSCOPY 2011 normal CYSTOSCOPY 08/2023 HEMORRHOIDECTOMY 1960s ORCHIECTOMY SIMPLE Left 1983 testicular cancer, with radiation PAST SURGICAL HISTORY OF Left knee arthroscopy PAST SURGICAL HISTORY OF 10/2023 Bladder Surgery PAST SURGICAL HISTORY OF 10/09/2023 Revised surgery on bladder neck Dr. Lundberg TONSILLECTOMY HX childhood TRANSURETHRAL ELEC-SURG PROSTATECTOM 06/25/2022 Family History FAMILY HISTORY Problem Relation Age of Onset Alzheimer's Disease Mother Heart Mother Diabetes Father Heart Father Cancer Sister No Known Problems Brother No Known Problems Maternal Grandmother No Known Problems Maternal Grandfather Diabetes Paternal Grandmother No Known Problems Paternal Grandfather Colon Cancer No Family History Patient Allergies ALLERGIES Allergen Reactions Demerol [Meperidine] Vomiting Sulfa (Sulfonamide * Unknown Elevated temperature Tetanus Toxoid Hives Current Medications Current Outpatient Medications on File Prior to Visit Medication Sig metFORMIN (GLUCOPHAGE) 1,000 mg tablet Take 0.5 tablets by mouth once daily. rosuvastatin (CRESTOR) 20 mg tablet take 1 tablet by mouth at bedtime meloxicam (MOBIC) 7.5 mg tablet Take 7.5 mg by mouth once daily. albuterol HFA (VENTOLIN HFA) 90 mcg/actuation inhaler Inhale 2 Puffs as instructed every 4 hours as needed for wheezing/shortness of breath. (Patient not taking: Reported on 08/01/2024) Lancets Test blood sugar(s) 1 to 2 times daily. Dx: Type 2 DM - Controlled E11.9 Insulin: No blood sugar diagnostic (BLOOD GLUCOSE TEST) test strip Test blood sugar(s) 1-2 times daily. Dx: Type 2 DM - Controlled E11.9 Insulin: No aspirin, enteric coated (ADULT LOW DOSE ASPIRIN) 81 mg EC tablet Take 1 tablet by mouth once daily. lisinopril (ZESTRIL) 5 mg tablet Take 1 tablet by mouth once daily. tamsulosin (FLOMAX) 0.4 mg Take 0.4 mg by mouth once daily. finasteride (PROSCAR) 5 mg tablet Take 5 mg by mouth once daily. (Patient not taking: Reported on 09/29/2024) No current facility-administered medications on file prior to visit. Social History Social History Tobacco Use Smoking status: Former Current packs/day: 0.00 Average packs/day: 1.5 packs/day for 20.0 years (30.0 ttl pk-yrs) Types: Cigarettes Start date: 07/23/1970 Quit date: 07/23/1990 Years since quittin.3 Smokeless tobacco: Never Vaping Use Vaping status: Never Used Substance Use Topics Alcohol use: No (more content not included)...[facility] 11-08-2024 History of Present illness Narrative* Yolande Warner MD - 11/08/2024 8:22 AM EDT Chief Complaint Patient presents with: Follow Up: 6 month HPI Tanisha Salter is a 84 year old male who presents here today for Above Complaints. DIABETES MELLITUS: Mr. Salter was last seen 6 months ago. Since our last visit he denies excessive thirst or increased frequency of urination, numbness, tingling or pain in extremities, new or unusual visual symptoms, and low sugar/hypoglycemic reactions. Follows a diabetic diet most of the time.He is compliant with medication(s) and is tolerating med(s) without any side effects. He reports checking his glucose on a infrequent to not at all basis. Patient's last HgA1C was Hemoglobin A1C (%) Date Value 11/04/2024 6.4 05/09/2024 6.3 10/18/2021 6.3 04/17/2021 6.4 ) Last Ophthalmology exam was within the past 12 months Last Podiatry exam was within the past 12 months Patient following up with Dr. Abraham pain management for chronic lower back pain and lumbar spinal stenosis. States that he has an MRI scheduled for his lower back in 2 days due to worsening pain in his lower back. Needing cane for ambulation now. Cannot stand for more than 4-5 minutes due to pain.Has had 3 medial branch blocks and 2 ADRIANO without improvement. On Meloxicam tylenol for pain which is not helping either. Not really interested in surgery. 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 Lundberg. Stopped his finasteride at last OV. Taking Flomax. Denies weak stream, straining, dysuria, hematuria. Getting up 2 times at night. Following up with oncology Dr. Haile at [facility] for history of prostate cancer s/p radiation. Last PSAwas 0. Rechecking PSA every 6 months. Past medical history, appointments, medications, allergies reviewed. 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 s/p radiation Spinal stenosis lumbar Testicular cancer (HCC) radiation- Previous Surgical History PAST SURGICAL HISTORY Procedure Laterality Date COLONOSCOPY 2011 normal CYSTOSCOPY 08/2023 HEMORRHOIDECTOMY 1960s ORCHIECTOMY SIMPLE Left 1983 testicular cancer, with radiation PAST SURGICAL HISTORY OF Left knee arthroscopy PAST SURGICAL HISTORY OF 10/2023 Bladder Surgery PAST SURGICAL HISTORY OF 10/09/2023 Revised surgery on bladder neck Dr. Lundberg TONSILLECTOMY HX childhood TRANSURETHRAL ELEC-SURG PROSTATECTOM 06/25/2022 Family History FAMILY HISTORY Problem Relation Age of Onset Alzheimer's Disease Mother Heart Mother Diabetes Father Heart Father Cancer Sister No Known Problems Brother No Known Problems Maternal Grandmother No Known Problems Maternal Grandfather Diabetes Paternal Grandmother No Known Problems Paternal Grandfather Colon Cancer No Family History Patient Allergies ALLERGIES Allergen Reactions Demerol [Meperidine] Vomiting Sulfa (Sulfonamide * Unknown Elevated temperature Tetanus Toxoid Hives Current Medications Current Outpatient Medications on File Prior to Visit Medication Sig metFORMIN (GLUCOPHAGE) 1,000 mg tablet Take 0.5 tablets by mouth once daily. rosuvastatin (CRESTOR) 20 mg tablet take 1 tablet by mouth at bedtime meloxicam (MOBIC) 7.5 mg tablet Take 7.5 mg by mouth once daily. albuterol HFA (VENTOLIN HFA) 90 mcg/actuation inhaler Inhale 2 Puffs as instructed every 4 hours asneeded for wheezing/shortness of breath. (Patient not taking: Reported on 08/01/2024) Lancets Test blood sugar(s) 1 to 2 times daily. Dx: Type 2 DM - Controlled E11.9 Insulin: No blood sugar diagnostic (BLOOD GLUCOSE TEST) test strip Test blood sugar(s) 1-2 times daily. Dx: Type 2 DM - Controlled E11.9 Insulin: No aspirin, enteric coated (ADULT LOW DOSE ASPIRIN) 81 mg EC tablet Take 1 tablet by mouth once daily. lisinopril (ZESTRIL) 5 mg tablet Take 1 tablet by mouth once daily. tamsulosin (FLOMAX) 0.4 mg Take 0.4 mg by mouth once daily. finasteride (PROSCAR) 5 mg tablet Take 5 mg by mouth once daily. (Patient not taking: Reported on 09/29/2024) No current facility-administered medications on file prior to visit. Social History Social History Tobacco Use Smoking status: Former Current packs/day: 0.00 Average packs/day: 1.5 packs/day for 20.0 years (30.0 ttl pk-yrs) Types: Cigarettes Start date: 07/23/1970 Quit date: 07/23/1990 Years since quittin.3 Smokeless tobacco: Never Vaping Use Vaping status: Never Used Substance Use Topics Alcohol use: Not Currently Comment: rarely Drug use: No Review of Symptoms REVIEW OF SYSTEMS GENERAL: No weight loss, malaise or fevers RESPIRATORY: Negative for cough, hemoptysis, wheezing, COPD, dyspnea or shortness of breath CARDIOVASCULAR: Negative for chest pain, leg swelling, hypertension, CHF or palpitations GI: No nausea, vomiting, or diarrhea SKIN: Negative for lesions, rash, and itching EXAM: BP 110/62 Pulse 73 Resp 16 Wt 88.4 kg (194 lb 12.8 oz) SpO2 96% BMI 26.42 kg/m General Appearance: Well appearing, alert, in [...] Good capillary refill. . Health Maintenance List Depression Screening Never done Anxiety Screening Never done Advance Directive Discussion Never done Covid-19 Vaccine() due on 11/24/2024 HbA1C due on 05/07/2025 Dilated Retinal Exam due on 07/19/2025 Diabetic Foot Exam due on 10/06/2025 Urine Albumin:Creatinine Ratio due on 11/04/2025 LDL Cholesterol due on 11/04/2025 Influenza Vaccine Completed RSV Vaccine Completed Shingrix Vaccine Completed Pneumococcal Vaccine: 50+ Completed DTaP,Tdap,Td Vaccine Discontinued Data reviewed Latest Ref Rng 05/09/2024 07/08/2024 11/04/2024 WBC 3.70 - 11.00 k/uL 5.38 RBC 4.20 - 6.00 m/uL 4.33 Hemoglobin 13.0 - 17.0 g/dL 13.2 Hematocrit 39.0 - 51.0 % 40.0 MCV 80.0 - 100.0 fL 92.4 MCH 26.0 - 34.0 pg 30.5 MCHC 30.5 - 36.0 g/dL 33.0 RDW-CV 11.5 - 15.0 % 12.9 Platelet Count 150 - 400 k/uL 209 MPV 9.0 - 12.7 fL 9.5 Neut% % 65.7 Abs Neut (ANC) 1.45 - 7.50 k/uL 3.54 Lymph% % 21.6 Abs Lymph 1.00 - 4.00 k/uL 1.16 Brule% % 9.5 Abs Brule <0.87 k/uL 0.51 Eosin% % 1.5 Abs Eosin <0.46 k/uL 0.08 Baso% % 1.3 Abs Baso <0.11 k/uL 0.07 Immature Gran % % 0.4 IMMATURE GRANS (ABS) <0.10 k/uL <0.03 NRBC /100 WBC 0.0 Absolute nRBC <0.01 k/uL <0.01 DTYPE Auto Protein, Total 6.3 - 8.0 g/dL 6.9 7.4 Albumin 3.9 - 4.9 g/dL 4.4 4.5 Calcium 8.5 - 10.2 mg/dL 10.1 9.8 Bilirubin, Total 0.2 - 1.3 mg/dL 0.4 0.3 Alkaline Phosphatase 38 - 113 U/L 62 56 AST 14 - 40 U/L 14 23 ALT 10 - 54 U/L 10 20 Glucose 74 - 99 mg/dL 114 (H) 100 (H) BUN 9 - 24 mg/dL 13 13 Creatinine 0.73 - 1.22 mg/dL 0.90 1.01 Sodium 136 - 144 mmol/L 136 140 Potassium 3.7 - 5.1 mmol/L 4.7 5.0 Chloride 98 - 107 mmol/L 100 102 CO2 22 - 30 mmol/L 26 27 Anion Gap 8 - 15 mmol/L 10 11 eGFR >=60 mL/min/1.73m 84 73 Cholesterol, Total <200 mg/dL 137 Triglyceride <150 mg/dL 142 HDL Cholesterol >39 mg/dL 40 Non HDL Cholesterol <130 mg/dL 97 Fasting Time hrs 12 VLDL Cholesterol <30 mg/dL 28 TC:HDL Ratio <5.10 3.43 LDL Cholesterol <100 mg/dL 69 LDL:HDL Ratio <2.54 1.73 Total Cholesterol, Nonfasting <200 mg/dL 119 Triglycerides, Nonfasting <150 mg/dL 148 HDL Cholesterol, Nonfasting >39 mg/dL 48 LDL Cholesterol, Nonfasting <100 mg/dL 41 Non HDL Cholesterol, Nonfasting <130 mg/dL 71 VLDL Cholesterol, Nonfasting <30 mg/dL 30 (H) Total Chol/HDL Ratio, Nonfasting <5.10 mg/dL 2.48 LDL/HDL Ratio, Nonfasting <2.54 mg/dL 0.85 Creatinine, Ur Random (UCRR) 46.8 - 314.5 mg/dL 154.0 Albumin, Urine Random mg/L 39.5 Albumin/Creat Ratio <30 mg/g 26 Hemoglobin A1C 4.3 - 5.6 % 6.3 (H) 6.4 (H) Estimated Average Glucose mg/dL 134 137 CCP Antibody IgG Qualitative Negative Negative CCP Antibody, IgG <20 Units <15 Uric Acid 4.0 - 8.1 mg/dL 5.7 Rheumatoid Factor <16 IU/mL 13 CURTIS Scr Qual Negative Negative WSR 0 - 15 mm/hr 20 (H) CRP <0.9 mg/dL <0.3 Legend: (H) High ASSESSMENT/PLAN: 1. Type 2 diabetes mellitus without complication, without long-term current use of insulin (HCC) - ICD9: 250.00, ICD10: E11.9 (primary diagnosis) - Controlled - Continue current medications - Statin prescribed - rosuvastatin - Blood glucose monitoring on a once daily schedule - Counseled on healthy diet and regular exercise - Discussed need for and benefit of weight loss. BMI 26.42 kg/(m^2) - Discussed diabetic education issues of diabetes complications and monitoring required, hypoglycemic/hyperglycemic symptoms, and medication-specific side effects and monitoring - Follow up in 6 months, sooner should any other issues arise. - LISINOPRIL 5 MG TABLET 2. Diabetic polyneuropathy associated with type 2 diabetes mellitus (HCC) - ICD9: 250.60, 357.2, ICD10: E11.42 F/u with podiatry as scheduled. Check feet daily at home. 3. Hyperlipidemia, unspecified hyperlipidemia type - ICD9: 272.4, ICD10: E78.5 - Controlled - Continue current medications - Counseled on healthy diet and regular exercise 4. Benign prostatic hyperplasia with nocturia - ICD9: 600.01, 788.43, ICD10: N40.1, R35.1 Improved on flomax. F/u with urology every 6 months. 5. Spinal stenosis, lumbar region, without neurogenic claudication - ICD9: 724.02, ICD10: M48.061 Recommendations per pain management. 6. History of prostate cancer - ICD9: V10.46, ICD10: Z85.46 Last PSA 0. F/u with oncology and urology. Yolande Warner MD documented in this encounter[facility] Telephone encounter Note * Telephone Encounter - Erika Hernandez LPN - 10/14/2024 2:14 PM EST Prescription Refill Information The patient has been identified by name and date of : Yes Caregiver verified no other encounters exist for this prescription request: Yes Caregiver confirmed with patient/requestor that no other refills are due, in the near future, with this provider at this time: Yes The last office visit in the department: 07/08/24 Does the patient have a future office visit with this provider/department: Yes-11/08/24 Requested Prescriptions Pending Prescriptions Disp Refills metFORMIN (GLUCOPHAGE) 1,000 mg tablet 45 tablet 1 Sig: Take 0.5 tablets by mouth once daily. Erika Hernandez LPN October 14, 2024 2:14 PM [facility]02-14-2025 Miscellaneous Notes* Telephone Encounter - Erika Hernandez LPN - 10/14/2024 2:14 PM EST Prescription Refill Information The patient has been identified by name and date of : Yes Caregiver verified no other encounters exist for this prescription request: Yes Caregiver confirmed with patient/requestor that no other refills are due, in the near future, with this provider at this time: Yes The last office visit in the department: 07/08/24 Does the patient have a future office visit with this provider/department: Yes-11/08/24 Requested Prescriptions Pending Prescriptions Disp Refills metFORMIN (GLUCOPHAGE) 1,000 mg tablet 45 tablet 1 Sig: Take 0.5 tablets by mouth once daily. Erika Hernandez LPN October 14, 2024 2:14 PM documented [facility] NoteHNO ID: [id number] Author: KAMLESH ALVARADO APRN.PUBLIC HEALTH PROGRAM MANAGER Service: ? Author Type: Nurse Practitioner Type: Progress Notes Filed: 10/08/2024 14:38 Note Text: Subjective HPI HPI Tanisha Salter is a 84 year old male who presents today for CC of rash on penis. This started 2 days ago. Has tried gold varma powder for relief. Symptoms are worsened by northing. Risk factors wears depends for leakage, often sits in urine. 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 s/p radiation Spinal stenosis lumbar Testicular cancer (HCC) radiation- PAST SURGICAL HISTORY Procedure Laterality Date COLONOSCOPY 2011 normal CYSTOSCOPY 08/2023 HEMORRHOIDECTOMY 1960s ORCHIECTOMY SIMPLE Left 1983 testicular cancer, with radiation PAST SURGICAL HISTORY OF Left knee arthroscopy PAST SURGICAL HISTORY OF 10/2023 Bladder Surgery PAST SURGICAL HISTORY OF 10/09/2023 Revised surgery on bladder neck Dr. Lundberg TONSILLECTOMY HX childhood TRANSURETHRAL ELEC-SURG PROSTATECTOM 06/25/2022 ALLERGIES Demerol [Meperidine], Sulfa (Sulfonamide Antibiotics), and Tetanus Toxoid MEDICATIONS rosuvastatin (CRESTOR) 20 mg tablet take 1 tablet by mouth at bedtime meloxicam (MOBIC) 7.5 mg tablet Take 7.5 mg by mouth once daily. Lancets Test blood sugar(s) 1 to 2 times daily. Dx: Type 2 DM - Controlled E11.9 Insulin: No blood sugar diagnostic (BLOOD GLUCOSE TEST) test strip Test blood sugar(s) 1-2 times daily. Dx: Type 2 DM - Controlled E11.9 Insulin: No aspirin, enteric coated (ADULT LOW DOSE ASPIRIN) 81 mg EC tablet Take 1 tablet by mouth once daily. lisinopril (ZESTRIL) 5 mg tablet Take 1 tablet by mouth once daily. metFORMIN (GLUCOPHAGE) 1,000 mg tablet Take 0.5 tablets by mouth once daily. tamsulosin (FLOMAX) 0.4 mg Take 0.4 mg by mouth once daily. nystatin (MYCOSTATIN) cream Apply 1 application to affected area three times a day for 7 days. albuterol HFA (VENTOLIN HFA) 90 mcg/actuation inhaler Inhale 2 Puffs as instructed every 4 hours as needed for wheezing/shortness of breath. (Patient not taking: Reported on 08/01/2024) finasteride (PROSCAR) 5 mg tablet Take 5 mg by mouth once daily. (Patient not taking: Reported on 09/29/2024) FAMILY HISTORY Problem Relation Age of Onset Alzheimer's Disease Mother Heart Mother Diabetes Father Heart Father Cancer Sister No Known Problems Brother No Known Problems Maternal Grandmother No Known Problems Maternal Grandfather Diabetes Paternal Grandmother No Known Problems Paternal Grandfather Colon Cancer No Family History Social History Tobacco Use Smoking status: Former Current packs/day: 0.00 Average packs/day: 1.5 packs/day for 20.0 years (30.0 ttl pk-yrs) Types: Cigarettes Start date: 07/23/1970 Quit date: 07/23/1990 Years since quittin.2 Smokeless tobacco: Never Vaping Use Vaping status: Never Used Substance Use Topics Alcohol use: Not Currently Comment: rarely Drug use: No Review of Systems Genitourinary: Negative for dysuria and urgency. Objective Blood pressure 122/62, pulse 76, resp. rate 16, weight 88.6 kg (195 lb 5.2 oz), SpO2 97%. Physical Exam Exam conducted with a director of analytical development present. Constitutional: General: He is not in acute distress. Appearance: He is not toxic-appearing or diaphoretic. HENT: Head: Normocephalic and atraumatic. Pulmonary: Effort: Pulmonary effort is normal. No accessory muscle usage or respiratory distress. Genitourinary: Neurological: Mental Status: He is alert and oriented to person, place, and time. SENSITIVE EXAMINATION CONSENT: The sensitive examination was discussed with the Patient or Patient's Authorized Continuous Wave Operator. As applicable, any other physician, advance practice provider, medical student, or other health professional student that will be observing or involved in the sensitive examination for educational or training purposes was discussed with the Patient or Authorized Continuous Wave Operator. The Patient or Authorized Continuous Wave Operator has agreed to proceed with the sensitive examination. (Sensitive examination includes inspection and/or palpation of the breasts, pelvis, prostate and anorectal regions) ASSESSMENT/PLAN: 1. Balanitis - ICD9: 607.1, ICD10: N48.1 -use medication as prescribed -follow up if symptoms persist, worsen, change - NYSTATIN 100,000 UNIT/GRAM TOPICAL CREAM Kamlesh Alvarado APRN.[facility]NP[facility] History of Present illness Narrative* Kamlesh Alvarado APRN.CARISSA - 10/08/2024 2:36 PM EST Images from the original note were not included. Subjective HPI HPI Tanisha Salter is a 84 year old male who presents today for CC of rash on penis. This started 2 days ago. Has tried gold varma powder for relief. Symptoms are worsened by northing. Risk factors wears depends for leakage, often sits in urine. 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 Lundberg [place]. s/p radiation Spinal stenosis lumbar Testicular cancer (HCC) radiation- PAST SURGICAL HISTORY Procedure Laterality Date COLONOSCOPY 2011 normal CYSTOSCOPY 08/2023 HEMORRHOIDECTOMY 1960s ORCHIECTOMY SIMPLE Left 1983 testicular cancer, with radiation PAST SURGICAL HISTORY OF Left knee arthroscopy PAST SURGICAL HISTORY OF 10/2023 Bladder Surgery PAST SURGICAL HISTORY OF 10/09/2023 Revised surgery on bladder neck Dr. Lundberg TONSILLECTOMY HX childhood TRANSURETHRAL ELEC-SURG PROSTATECTOM 06/25/2022 ALLERGIES Demerol [Meperidine], Sulfa (Sulfonamide Antibiotics), and Tetanus Toxoid MEDICATIONS rosuvastatin (CRESTOR) 20 mg tablet take 1 tablet by mouth at bedtime meloxicam (MOBIC) 7.5 mg tablet Take 7.5 mg by mouth once daily. Lancets Test blood sugar(s) 1 to 2 times daily. Dx: Type 2 DM - Controlled E11.9 Insulin: No blood sugar diagnostic (BLOOD GLUCOSE TEST) test strip Test blood sugar(s) 1-2 times daily. Dx: Type 2 DM - Controlled E11.9 Insulin: No aspirin, enteric coated (ADULT LOW DOSE ASPIRIN) 81 mg EC tablet Take 1 tablet by mouth once daily. lisinopril (ZESTRIL) 5 mg tablet Take 1 tablet by mouth once daily. metFORMIN (GLUCOPHAGE) 1,000 mg tablet Take 0.5 tablets by mouth once daily. tamsulosin (FLOMAX) 0.4 mg Take 0.4 mg by mouth once daily. nystatin (MYCOSTATIN) cream Apply 1 application to affected area three times a day for 7 days. albuterol HFA (VENTOLIN HFA) 90 mcg/actuation inhaler Inhale 2 Puffs as instructed every 4 hours asneeded for wheezing/shortness of breath. (Patient not taking: Reported on 08/01/2024) finasteride (PROSCAR) 5 mg tablet Take 5 mg by mouth once daily. (Patient not taking: Reported on 09/29/2024) FAMILY HISTORY Problem Relation Age of Onset Alzheimer's Disease Mother Heart Mother Diabetes Father Heart Father Cancer Sister No Known Problems Brother No Known Problems Maternal Grandmother No Known Problems Maternal Grandfather Diabetes Paternal Grandmother No Known Problems Paternal Grandfather Colon Cancer No Family History Social History Tobacco Use Smoking status: Former Current packs/day: 0.00 Average packs/day: 1.5 packs/day for 20.0 years (30.0 ttl pk-yrs) Types: Cigarettes Start date: 07/23/1970 Quit date: 07/23/1990 Years since quittin.2 Smokeless tobacco: Never Vaping Use Vaping status: Never Used Substance Use Topics Alcohol use: Not Currently Comment: rarely Drug use: No Review of Systems Genitourinary: Negative for dysuria and urgency. Objective Blood pressure 122/62, pulse 76, resp. rate 16, weight 88.6 kg (195 lb 5.2 oz), SpO2 97%. Physical Exam Exam conducted with a director of analytical development present. Constitutional: General: He is not in acute distress. Appearance: He is not toxic-appearing or diaphoretic. HENT: Head: Normocephalic and atraumatic. Pulmonary: Effort: Pulmonary effort is normal. No accessory muscle usage or respiratory distress. Genitourinary: Neurological: Mental Status: He is alert and oriented to person, place, and time. SENSITIVE EXAMINATION CONSENT: The sensitive examination was discussed with the Patient or Patient's Authorized Continuous Wave Operator. Asapplicable, any other physician, advance practice provider, medical student, or other health professional student that will be observing or involved in the sensitive examination for educational or training purposes was discussed with the Patient or Authorized Continuous Wave Operator. The Patient or Authorized Continuous Wave Operator has agreed to proceed with the sensitive examination. (Sensitive examination includes inspection and/or palpation of the breasts, pelvis, prostate and anorectal regions) ASSESSMENT/PLAN: 1. Balanitis - ICD9: 607.1, ICD10: N48.1 -use medication as prescribed -follow up if symptoms persist, worsen, change - NYSTATIN 100,000 UNIT/GRAM TOPICAL CREAM Kamlesh Alvarado APRN.PUBLIC HEALTH PROGRAM MANAGER documented in this encounterSelect [facility] NoteHNO ID: [id number] Author: LUCINDA KOHLER, ? Service: ? Author Type: Physician Type: Progress Notes Filed: 10/06/2024 08:30 Note Text: Last saw pcp: 08/25/24 Subjective: Patient presents to clinic c/o painful toenails. They state that the nails are especially painful with shoe gear and pressure. Patient states that nails b/l hallux are painful. Patient admits to being diabetic. No other pedal complaints at this time. Patient states no change in medications or medical history since last visit. Objective: Patient presents to clinic ambulating in [facility] Vasc: DP and PT pulses are faintly [...] blood sugar under control to prevent complications. Stressed the importance of avoiding barefoot walking, wearing good shoes and inspection of feet. Patient is to RTC in 3-4 months. Lucinda Kohler [facility]02-06-2025 History of Present illness Narrative* Lucinda Kohler - 10/06/2024 8:10 AM EST Last saw pcp: 08/25/24 Subjective: Patient presents to clinic c/o painful toenails. They state that the nails are especially painful with shoe gear and pressure. Patient states that nails b/l hallux are painful. Patient admits to being diabetic. No other pedal complaints at this time. Patient states no change in medications or medical history since last visit. Objective: Patient presents to clinic ambulating in [facility] Vasc: DP and PT pulses are faintly [...] blood sugar under control to prevent complications. Stressed the importance of avoiding barefoot walking, wearing good shoes and inspection of feet. Patient is to RTC in 3-4 months. Lucinda Kohler DPM * La Forrester RN - 10/06/2024 8:04 AM EST Patient presents with: Left Foot - Established Patient, Follow Up, Diabetic Foot Check Right Foot - Established Patient, Follow Up, Diabetic Foot Check Patient presents for 9 week follow up diabetic foot/nail care. Also due for a diabetic foot exam. RAFAEL 08/01/24 documented in this encounterSelect [facility] [place] Instructions* Patient Instructions* Lucinda Kohler - 10/06/2024 8:10 AM EST Diabetes Foot Care Instructions [...] it. Apply a bandage and wear a differentpair of shoes. Take Care of Your Toenails Cut toenails after bathing, when they are soft. Cut toenails straight across and smooth with a nail file. Avoid cutting into the corners of toes. Do not cut cuticles. If you have neuropathy (or decreased sensation in your feet) a energy director should always cut your toenails. Be Careful [...] make sure there are no foreign objects orrough areas. Avoid tight socks. Wear natural-fiber socks [...] Go to your health care provider or energy director to treat these conditions. documented in this encounterSelect [facility] [place]-2025 NoteHNO ID: [id number] Author: LA FORRESTER RN Service: ? Author Type: Registered Nurse Type: Progress Notes Filed: 10/06/2024 08:30 Note Text: Patient presents with: Left Foot - Established Patient, Follow Up, Diabetic Foot Check Right Foot - Established Patient, Follow Up, Diabetic Foot Check Patient presents for 9 week follow up diabetic foot/nail care. Also due for a diabetic foot exam. [facility] 08/01/24[facility] Instructions* Patient Instructions* Monet Proctor APRN.PUBLIC HEALTH PROGRAM MANAGER - 09/29/2024 8:58 AM EST Images from the original note were not included. ASSESSMENT/PLAN: 1. Sinobronchitis - ICD9: 473.9, 490, ICD10: J32.9, J40 - Will begin treatment with as per antibiotic as written, see orders - Supportive care with plenty of fluids, rest, and analgesia prn. - AMOXICILLIN 875 MG-POTASSIUM CLAVULANATE 125 MG TABLET - PREDNISONE 20 MG TABLET - Follow-up with your PCP in 3-5 days if symptoms have not improved or sooner if symptoms worsen - Discussed red flags and need for immediate medical evaluation if any occur. - Discussed supportive care treatment with fluids, rest and analgesia. - Discussed expected course of illness Monet Proctor APRN.CARISSA Adult Sinusitis Patient Education What is Sinusitis? Sinusitis [[id number]] is inflammation of the sinuses or swelling of the lining of the sinus cavity or nose. During an infection the sinuses become blocked with fluid causing swelling of the lining of the sinuses. Symptoms: (viral and bacterial infections) Stuffy nose Runny nose Postnasal drip Fever Toothache Headache Tiredness Cough Sore throat Face and head pressure and or pain Common causes: 98% of sinus infections are viral caused by viruses. Risk Factors of Sinusitis Include: Allergies, air pollution, indoor humidity and outdoor temperature changes, andstructural changes inthe nose may contribute to sinus pain, pressure and congestion. When to get help? Temperature greater than 100.4 F Symptoms lasting more than 10 days or worsening symptoms greater than 7-10 days. If you do not improve or worsen after a course of antibiotics, you should be re-examined. Diagnosis and Treatment: Your healthcare provider will ask a number of questions about your symptoms and how long they have occurred. If symptoms of sinusitis persist greater than 10 days, it is possible you have a bacterial sinus infection and an antibiotic is prescribed. If it is viral, antibiotics will not help. You may be instructed to take [id number] medications for symptoms. including fever reducers acetaminophen or ibuprofen, nasal saline spray, cough and cold preparations and decongestants as prescribed by the physician, nurse practitioner or physician fast food sales assistant. Self-Care and Prevention: Rest Fluids for hydration Good hand washing Humidifier Avoid smoking and exposure to second hand smoke Avoid sick contacts documented in this encounterSelect [facility] [place]-2025 NoteHNO ID: [id number] Author: MONET PROCTOR APRN.CARISSA Service: ? Author Type: Nurse Practitioner Type: Progress Notes Filed: 09/29/2024 08:58 Note Text: Subjective Cough Associated symptoms include sore throat. Pertinent negatives include no chest pain, no chills, no ear pain, no headaches, no myalgias and no shortness of breath. Tanisha Salter is a 84 year old male who presents with one week of nasal congestion and cough and sore throat. He has not had a fever. He took one dose of Delsym yesterday which did not help. He denies chest pain or shortness of breath. Review of Systems Constitutional: Negative for chills, fever and malaise/fatigue. HENT: Positive for congestion and sore throat. Negative for ear pain. Respiratory: Positive for cough and sputum production. Negative for shortness of breath. Cardiovascular: Negative for chest pain. Gastrointestinal: Negative for diarrhea, nausea and vomiting. Musculoskeletal: Negative for myalgias. Neurological: Negative for headaches. BP 110/64 Pulse 84 Temp 36.7 ?C (98 ?F) Resp 21 Wt 88.5 kg (195 lb 1.7 oz) SpO2 96% BMI 26.46 kg/m? 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 Lundberg [place]. s/p radiation Spinal stenosis lumbar Testicular cancer (HCC) radiation- PAST SURGICAL HISTORY Procedure Laterality Date COLONOSCOPY 2011 normal CYSTOSCOPY 08/2023 HEMORRHOIDECTOMY 1960s ORCHIECTOMY SIMPLE Left 1983 testicular cancer, with radiation PAST SURGICAL HISTORY OF Left knee arthroscopy PAST SURGICAL HISTORY OF 10/2023 Bladder Surgery PAST SURGICAL HISTORY OF 10/09/2023 Revised surgery on bladder neck Dr. Lundberg TONSILLECTOMY HX childhood TRANSURETHRAL ELEC-SURG PROSTATECTOM 06/25/2022 ALLERGIES Demerol [Meperidine], Sulfa (Sulfonamide Antibiotics), and Tetanus Toxoid MEDICATIONS rosuvastatin (CRESTOR) 20 mg tablet take 1 tablet by mouth at bedtime meloxicam (MOBIC) 7.5 mg tablet Take 7.5 mg by mouth once daily. Lancets Test blood sugar(s) 1 to 2 times daily. Dx: Type 2 DM - Controlled E11.9 Insulin: No blood sugar diagnostic (BLOOD GLUCOSE TEST) test strip Test blood sugar(s) 1-2 times daily. Dx: Type 2 DM - Controlled E11.9 Insulin: No aspirin, enteric coated (ADULT LOW DOSE ASPIRIN) 81 mg EC tablet Take 1 tablet by mouth once daily. lisinopril (ZESTRIL) 5 mg tablet Take 1 tablet by mouth once daily. metFORMIN (GLUCOPHAGE) 1,000 mg tablet Take 0.5 tablets by mouth once daily. tamsulosin (FLOMAX) 0.4 mg Take 0.4 mg by mouth once daily. amoxicillin-clavulanate potassium (AUGMENTIN) 875-125 mg per tablet Take 1 tablet by mouth two times a day for 7 days. predniSONE (DELTASONE) 20 mg tablet Take 2 tablets by mouth once daily for 4 days. albuterol HFA (VENTOLIN HFA) 90 mcg/actuation inhaler Inhale 2 Puffs as instructed every 4 hours as needed for wheezing/shortness of breath. (Patient not taking: Reported on 08/01/2024) finasteride (PROSCAR) 5 mg tablet Take 5 mg by mouth once daily. (Patient not taking: Reported on 09/29/2024) FAMILY HISTORY Problem Relation Age of Onset Alzheimer's Disease Mother Heart Mother Diabetes Father Heart Father Cancer Sister No Known Problems Brother No Known Problems Maternal Grandmother No Known Problems Maternal Grandfather Diabetes Paternal Grandmother No Known Problems Paternal Grandfather Colon Cancer No Family History Social History Tobacco Use Smoking status: Former Current packs/day: 0.00 Average packs/day: 1.5 packs/day for 20.0 years (30.0 ttl pk-yrs) Types: Cigarettes Start date: 07/23/1970 Quit date: 07/23/1990 Years since quittin.2 Smokeless tobacco: Never Vaping Use Vaping status: Never Used Substance Use Topics Alcohol use: Not Currently Comment: rarely Drug use: No Objective Physical Exam Vitals and nursing note reviewed. Constitutional: General: He is not in acute distress. Appearance: Normal appearance. He is not ill-appearing. HENT: Right Ear: Tympanic membrane, ear canal and external ear normal. Left Ear: Tympanic membrane, ear canal and external ear normal. Nose: Mucosal edema, congestion and rhinorrhea present. Mouth/Throat: Mouth: Mucous membranes are moist. Pharynx: Oropharynx is clear. Uvula midline. No oropharyngeal exudate or posterior oropharyngeal erythema. Cardiovascular: Rate and Rhythm: Normal rate and regular rhythm. Heart sounds: Normal heart sounds. Pulmonary: Effort: Pulmonary effort is normal. No respiratory distress. Breath sounds: Examination of the right-upper field reveals wheezing. Examination of the left-upper field reveals wheezing. Wheezing present. No rales (more content not included)...[facility]01-30-[facility] History of Present illness Narrative* Monet Proctor APRN.PUBLIC HEALTH PROGRAM MANAGER - 09/29/2024 8:55 AM EST Subjective Cough Associated symptoms include sore throat. Pertinent negatives include no chest pain, no chills, no ear pain, no headaches, no myalgias and no shortness of breath. Tanisha Salter is a 84 year old male who presents with one week of nasal congestion and cough and sore throat. He has not had a fever. He took one dose of Delsym yesterday which did not help. He denies chest pain or shortness of breath. Review of Systems Constitutional: Negative for chills, fever and malaise/fatigue. HENT: Positive for congestion and sore throat. Negative for ear pain. Respiratory: Positive for cough and sputum production. Negative for shortness of breath. Cardiovascular: Negative for chest pain. Gastrointestinal: Negative for diarrhea, nausea and vomiting. Musculoskeletal: Negative for myalgias. Neurological: Negative for headaches. 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 s/p radiation Spinal stenosis lumbar Testicular cancer (HCC) radiation- PAST SURGICAL HISTORY Procedure Laterality Date COLONOSCOPY 2011 normal CYSTOSCOPY 08/2023 HEMORRHOIDECTOMY 1960s ORCHIECTOMY SIMPLE Left 1983 testicular cancer, with radiation PAST SURGICAL HISTORY OF Left knee arthroscopy PAST SURGICAL HISTORY OF 10/2023 Bladder Surgery PAST SURGICAL HISTORY OF 10/09/2023 Revised surgery on bladder neck Dr. Lundberg TONSILLECTOMY HX childhood TRANSURETHRAL ELEC-SURG PROSTATECTOM 06/25/2022 ALLERGIES Demerol [Meperidine], Sulfa (Sulfonamide Antibiotics), and Tetanus Toxoid MEDICATIONS rosuvastatin (CRESTOR) 20 mg tablet take 1 tablet by mouth at bedtime meloxicam (MOBIC) 7.5 mg tablet Take 7.5 mg by mouth once daily. Lancets Test blood sugar(s) 1 to 2 times daily. Dx: Type 2 DM - Controlled E11.9 Insulin: No blood sugar diagnostic (BLOOD GLUCOSE TEST) test strip Test blood sugar(s) 1-2 times daily. Dx: Type 2 DM - Controlled E11.9 Insulin: No aspirin, enteric coated (ADULT LOW DOSE ASPIRIN) 81 mg EC tablet Take 1 tablet by mouth once daily. lisinopril (ZESTRIL) 5 mg tablet Take 1 tablet by mouth once daily. metFORMIN (GLUCOPHAGE) 1,000 mg tablet Take 0.5 tablets by mouth once daily. tamsulosin (FLOMAX) 0.4 mg Take 0.4 mg by mouth once daily. amoxicillin-clavulanate potassium (AUGMENTIN) 875-125 mg per tablet Take 1 tablet by mouth two times a day for 7 days. predniSONE (DELTASONE) 20 mg tablet Take 2 tablets by mouth once daily for 4 days. albuterol HFA (VENTOLIN HFA) 90 mcg/actuation inhaler Inhale 2 Puffs as instructed every 4 hours asneeded for wheezing/shortness of breath. (Patient not taking: Reported on 08/01/2024) finasteride (PROSCAR) 5 mg tablet Take 5 mg by mouth once daily. (Patient not taking: Reported on 09/29/2024) FAMILY HISTORY Problem Relation Age of Onset Alzheimer's Disease Mother Heart Mother Diabetes Father Heart Father Cancer Sister No Known Problems Brother No Known Problems Maternal Grandmother No Known Problems Maternal Grandfather Diabetes Paternal Grandmother No Known Problems Paternal Grandfather Colon Cancer No Family History Social History Tobacco Use Smoking status: Former Current packs/day: 0.00 Average packs/day: 1.5 packs/day for 20.0 years (30.0 ttl pk-yrs) Types: Cigarettes Start date: 07/23/1970 Quit date: 07/23/1990 Years since quittin.2 Smokeless tobacco: Never Vaping Use Vaping status: Never Used Substance Use Topics Alcohol use: Not Currently Comment: rarely Drug use: No Objective Physical Exam Vitals and nursing note reviewed. Constitutional: General: He is not in acute distress. Appearance: Normal appearance. He is not ill-appearing. HENT: Right Ear: Tympanic membrane, ear canal and external ear normal. Left Ear: Tympanic membrane, ear canal and external ear normal. Nose: Mucosal edema, congestion and rhinorrhea present. Mouth/Throat: Mouth: Mucous membranes are moist. Pharynx: Oropharynx is clear. Uvula midline. No oropharyngeal exudate or posterior oropharyngeal erythema. Cardiovascular: Rate and Rhythm: Normal rate and regular rhythm. Heart sounds: Normal heart sounds. Pulmonary: Effort: Pulmonary effort is normal. No respiratory distress. Breath sounds: Examination of the right-upper field reveals wheezing. Examination of the left-upperfield reveals wheezing. Wheezing present. No rales. Musculoskeletal: Cervical back: Neck supple. Lymphadenopathy: Cervical: No cervical adenopathy. Skin: General: Skin is warm and dry. Findings: No erythema or rash. Neurological: Mental Status: He is alert. ASSESSMENT/PLAN: 1. Sinobronchitis - ICD9: 473.9, 490, ICD10: J32.9, J40 - Will begin treatment with as per antibiotic as written, see orders - Supportive care with plenty of fluids, rest, and analgesia prn. - AMOXICILLIN 875 MG-POTASSIUM CLAVULANATE 125 MG TABLET - PREDNISONE 20 MG TABLET - Follow-up with your PCP in 3-5 days if symptoms have not improved or sooner if symptoms worsen - Discussed red flags and need for immediate medical evaluation if any occur. - Discussed supportive care treatment with fluids, rest and analgesia. - Discussed expected course of illness Monet Proctor APRN.CARISSA documented [facility] note* Diagnosis Onset Date Resolution Status Admit Date Balance problem acute September 082024 8:52am Lumbar radiculopathy acute Valentino marvin 2024 8:52am Lumbar scoliosis acute September 08, 2024 8:52am [facility] Work Phone: [phone]) 623-992301-09-2025 Telephone encounter Note* Telephone Encounter - La Pedro RN - 09/08/2024 10:10 AM EST Delma with [facility] called and asked to have Pts most recent A1C faxed over to fax# [phone]. Lab faxed and given verbally. [facility] Miscellaneous Notes* Telephone Encounter - La Pedro RN - 09/08/2024 10:10 AM EST Delma with [facility] called and asked to have Pts most recent A1C faxed over to fax# [phone]. Lab faxed and given verbally. documented in this encounter[facility] [place]25 NoteHNO ID: [id number] Author: FELY MEDRANO OTR/L Service: ? 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 The patient presents with impairments in coordination, joint mobility, overall function, sensation, and strength. Patient did not complete the PROMIS? (Patient Reported Outcome Measures Information System). Prognosis for therapy is Good due to: current objective clinical presentation . The patient will benefit from skilled therapy services to meet the goals established for this plan of care as noted below. Goals for Episode of Care: established 09/02/24 Patient will report a good understanding of diagnosis and OT recommendations for progression of program. Patient will increase AROM of Left thumb to WFL opposition (to LF) in order to be able to improve function for basic self-care tasks. 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 Patient will increase Left pinch by 20% so that patient will be able to improve function for light functional tasks. Patient Goals: Resume normal function of hand / reduce pain Time Frame for Goals and Treatment : 10/14/24 Planned Interventions, Frequency, and Duration: Current Frequency: 1x every other week Duration: 6 weeks Total Number of Visits Planned: 3 Planned Treatment Interventions: Therapeutic exercise (49694), Therapeutic activities (06708), Manual therapy (56447), Self-fdc management (81524) PLAN FOR NEXT VISIT:CMC stabilization / strengthening as tolerated; pincer pinch as tolerated Patient demonstrates good understanding of plan of care and treatment. The above goals and plan of care were discussed and agreed upon by patient/family. 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 of years; PCP referred to possible arthritis; no x-rays completed Functional Limitations: gripping, pinching, twisting, pulling, pushing, carrying Prior Level of Function: Independent without limitations Patient Goals: Resume normal function of hand / reduce pain Intake Information: Prescription present Previous Treatment: Heat , Steroids Falls Interview: No positive findings with falls interview Relevant History Right or Left Handed: Right Employment: Retired Recreation / Current Exercise: walking Home Environment Patient Lives With: Self/Alone Home Type: Ranch, Apt/Condo Entry To Home: No Stairs Pain: Pain Pain Location 2: Hand - Left Description 2: Aching Frequency 2: Intermittent Post Treatment Pain Post Treatment Pain Score 2: No Change PROMIS Scales 10/18/2019 10/10/2019 Higher is Better Phys Func - Score 42 (mild dysfunction) 43 (mild dysfunction) Phys Func - Percentile 21 24 T-scores: mean of general population = 50. 5 points is clinically meaningfully difference Percentiles provide an indication of how the patient's score ranks in relation to the general population. Higher percentile rankings indicate better function/quality of life. 50th percentile is the average of the general population and indicates half of respondents had a worse score. OBJECTIVE MEASURES WITH LEVEL OF FUNCTION: Sensation - Upper Extremity UE Light Touch Sensation: Grossly Intact Hand Edema Description: Absent Edema Measurements: Digits Elbow AROM: WFL Wrist AROM: WFL Left Hand AROM: Index Finger Thumb AROM: Left Limitation Strength: Claims Technician Position 2, Pinch Meter Sensation: Reports tingling or numbness Dexterity/Coordination: Fine Motor Clinical Presentation: Absent O sign (thenar atrophy L) Hand Strength R Claims Technician Position 2 (lbs): 60 lbs L Claims Technician Position 2 (lbs): 15 lbs R Lateral Pinch (lbs): 22 lbs R Tripod/ 3 Jaw Malvin (lbs): 20 lbs L Lateral Pinch (lbs): 7 lbs L Tripod/ 3 Jaw Malvin (lbs): (unable to achieve position) UE AROM Left Hand AROM: Index Finger Thumb AROM: Left Limitation UE and Cervical Strength R UE Strength: NT L UE Strength: NT Instrumental Activities of Daily Living Difficulty noted with: Meal/Beverage Prep, Cooking, Cleanin (more content not included)...[facility] History of Present illness Narrative* Fely Mderano OTR/Hima - 09/02/2024 2:25 PM ESTSummary: OT evaluation Images from the original note were not included. 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 The patient presents with impairments in coordination, joint mobility, overall function, sensation, and strength. Patient did not complete the PROMIS (Patient Reported Outcome Measures Information System). Prognosis for therapy is Good due to: current objective clinical presentation . The patient will benefit from skilled therapy services to meet the goals established for this plan of care as noted below. Goals for Episode of Care: established 09/02/24 Patient will report a good understanding of diagnosis and OT recommendations for progression of program. Patient will increase AROM of Left thumb to WFL opposition (to LF) in order to be able to improve function for basic self-care tasks. 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 Patient will increase Left pinch by 20% so that patient will be able to improve function for light functional tasks. Patient Goals: Resume normal function of hand / reduce pain Time Frame for Goals and Treatment : 10/14/24 Planned Interventions, Frequency, and Duration: Current Frequency: 1x every other week Duration: 6 weeks Total Number of Visits Planned: 3 Planned Treatment Interventions: Therapeutic exercise (33068), Therapeutic activities (87651), Manual therapy (81486), Self-fdc management (41994) PLAN FOR NEXT VISIT:CMC stabilization / strengthening as tolerated; pincer pinch as tolerated Patient demonstrates good understanding of plan of care and treatment. The above goals and plan of care were discussed and agreed upon by patient/family. 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 of years; PCP referred to possible arthritis; no x-rays completed Functional Limitations: gripping, pinching, twisting, pulling, pushing, carrying Prior Level of Function: Independent without limitations Patient Goals: Resume normal function of hand / reduce pain Intake Information: Prescription present Previous Treatment: Heat , Steroids Falls Interview: No positive findings with falls interview Relevant History Right or Left Handed: Right Employment: Retired Recreation / Current Exercise: walking Home Environment Patient Lives With: Self/Alone Home Type: Ranch, Apt/Condo Entry To Home: No Stairs Pain: Pain Pain Location 2: Hand - Left Description 2: Aching Frequency 2: Intermittent Post Treatment Pain Post Treatment Pain Score 2: No Change PROMIS Scales 10/18/2019 10/10/2019 Higher is Better Phys Func - Score 42 (mild dysfunction) 43 (mild dysfunction) Phys Func - Percentile 21 24 T-scores: mean of general population = 50. 5 points is clinically meaningfully difference Percentiles provide an indication of how the patient's score ranks in relation to the general population. Higher percentile rankings indicate better function/quality of life. 50th percentile is the average of the general population and indicates half of respondents had a worse score. OBJECTIVE MEASURES WITH LEVEL OF FUNCTION: Sensation - Upper Extremity UE Light Touch Sensation: Grossly Intact Hand Edema Description: Absent Edema Measurements: Digits Elbow AROM: WFL Wrist AROM: WFL Left Hand AROM: Index Finger Thumb AROM: Left Limitation Strength: Claims Technician Position 2, Pinch Meter Sensation: Reports tingling or numbness Dexterity/Coordination: Fine Motor Clinical Presentation: Absent O sign (thenar atrophy L) Hand Strength R Claims Technician Position 2 (lbs): 60 lbs L Claims Technician Position 2 (lbs): 15 lbs R Lateral Pinch (lbs): 22 lbs R Tripod/ 3 Jaw Malvin (lbs): 20 lbs L Lateral Pinch (lbs): 7 lbs L Tripod/ 3 Jaw Malvin (lbs): (unable to achieve position) UE AROM Left Hand AROM: Index Finger Thumb AROM: Left Limitation UE and Cervical Strength R UE Strength: NT L UE Strength: NT Instrumental Activities of Daily Living Difficulty noted with: Meal/Beverage Prep, Cooking, Cleaning, Laundry, Additional Instrumental Activities of Daily Living Meal/Beverage Prep: Modified Independent Cooking: Modified Independent Cleaning: Modified Independent Laundry: Modified Independent Education: Education Learning Preferences: Demonstration, Explanation, Performance, Printed Materials Barriers: None Learning/educational needs: Home exercise program Education Provided: Yes, see treatment interventions for education provided Education Provided To: Patient Education Mode/Type: Demonstration, Explanation/Discussion, Literature/Printed Materials, Performance Response to Education/Teach Back: States/Identifies, Return Demonstration, Requires Review/Additional Education TREATMENT: OT Treatment Interventions : Self-Half-Way Management, Therapeutic Exercise Evaluation Evaluation Therapeutic Exercise: 1: Review of HEP for CMC stablization exercises, tendon glides as tolerated in pain free ROM Skilled Intervention: Patient was educated in proper exercise technique and purpose for exercises. Skilled judgment was used in selection of appropriate interventions. Correct performance of therapeutic exercises was facilitated with verbal and visual cuing. Self-Half-Way Management: 3: Review of heat vs. ice; heat prior to exercise if needed / for comfort; ice for acute flare ups / after exercises if needed.Molly baker explained Skilled Intervention: Skilled judgment in the selection of proper modification for activity of daily living/home management based on clinical presentation, deficits, and needs. Reviewed patient specific diagnosis in relation to activities of daily living/home management. Billing * Evaluation Low Complexity: 1 Unit Therapeutic Exercise Treatment Minutes: 20 Self-Care/Home Management Treatment Minutes: 5 Skilled Treatment Time Minutes (timed and untimed codes): 45 Total Session Time (minutes): 45 Session Start Time : 1330 Session Stop Time : 1415 GAEL Carrington * Fely Medrano OTR/L - 09/02/2024 2:07 PM EST Program_ID:[id number] Access Code: [email or web address] URL: [email or web address] Date: 09-02-2024 Prepared By: Fely Medrano Program Notes Exercises - Wrist Tendon Gliding - 2 x daily - 7 x weekly - 1 sets - 10 reps documented in this encounterSelect [facility]24 NoteHNO ID: [id number] Author: JESSE AVERY MD Service: ? Author Type: Physician Type: Progress Notes Filed: 08/25/2024 09:16 Note Text: Patient presents with: Cough: Chest congestion x2 weeks, R eye conjunctivitis x2 days HPI: Feeling sick with URI the last week. Right eye irritation started 2 days ago. He had a cough a few weeks ago that improved before returning. Positive symptoms: cough, Nasal Congestion, Rhinorrhea, right eye pruritus/redness/drainage/AM crust, Negative symptoms: Shortness of breath, Wheezing, Chest pain, Fever, vision change, eye pain, OTC: delsym MEDICATIONS: Current Outpatient Medications Medication Sig rosuvastatin (CRESTOR) 20 mg tablet take 1 tablet by mouth at bedtime meloxicam (MOBIC) 7.5 mg tablet Take 7.5 mg by mouth once daily. Lancets Test blood sugar(s) 1 to 2 times daily. Dx: Type 2 DM - Controlled E11.9 Insulin: No blood sugar diagnostic (BLOOD GLUCOSE TEST) test strip Test blood sugar(s) 1-2 times daily. Dx: Type 2 DM - Controlled E11.9 Insulin: No aspirin, enteric coated (ADULT LOW DOSE ASPIRIN) 81 mg EC tablet Take 1 tablet by mouth once daily. lisinopril (ZESTRIL) 5 mg tablet Take 1 tablet by mouth once daily. metFORMIN (GLUCOPHAGE) 1,000 mg tablet Take 0.5 tablets by mouth once daily. tamsulosin (FLOMAX) 0.4 mg Take 0.4 mg by mouth once daily. finasteride (PROSCAR) 5 mg tablet Take 5 mg by mouth once daily. albuterol HFA (VENTOLIN HFA) 90 mcg/actuation inhaler Inhale 2 Puffs as instructed every 4 hours as needed for wheezing/shortness of breath. (Patient not taking: Reported on 08/01/2024) No current facility-administered medications for this visit. ALLERGIES: ALLERGIES Allergen Reactions Demerol [Meperidine] Vomiting Sulfa (Sulfonamide * Unknown Elevated temperature Tetanus Toxoid Hives VITALS: BP 119/67 Pulse 79 Temp 36.1 ?C (97 ?F) Resp 18 Wt 89 kg (196 lb 3.4 oz) SpO2 97% BMI 26.61 kg/m? PHYSICAL EXAM: GEN: mildly ill appearing. Accompanied by his daughter HEENT: PERRL, EOMI, left conjunctiva clear, moderate right conjunctival injection, fine mucoid crust on right eyelashes Ears: canals clear. TMs without erythema, bulge, or effusion Sinuses: non-tender frontal sinus, non-tender maxillary sinuses Throat: moist mucous membranes, no erythema, no exudate Neck: supple, no thyromegaly, no lymphadenopathy HEART: regular rate, regular rhythm, no murmurs LUNGS: clear to auscultation, no wheezes or crackles, no increased WOB ASSESSMENT/PLAN: 1. Acute conjunctivitis of right eye, unspecified acute conjunctivitis type - ICD9: 372.00, ICD10: H10.31 Suspect viral URI last week producing cough and conjunctivitis. [place] eye discussed. Infectious conjunctivitis is most commonly caused by cold viruses and is a self-limited condition which usually resolves in about a week. Bacterial conjunctivitis usually follows a similar course, but symptoms and contagiousness are responsive to antibiotics. Bacterial infection can rarely progress to more serious infection. Hand hygiene with washing or java sql developer is important to reduce spread of the infection. Seek re-evaluation for high fever, increasing periocular redness/swelling, eye pain, or vision change as these can be symptoms of serious infection. - OFLOXACIN 0.3 % EYE DROPS for possible superimposed bacterial conjunctivitis Jesse Avery [facility]12-26-2024 History of Present illness Narrative* Jesse Avery MD - 08/25/2024 9:00 AM EST Patient presents with: Cough: Chest congestion x2 weeks, R eye conjunctivitis x2 days HPI: Feeling sick with URI the last week. Right eye irritation started 2 days ago. He had a cough a few weeks ago that improved before returning. Positive symptoms: cough, Nasal Congestion, Rhinorrhea, right eye pruritus/redness/drainage/AM crust, Negative symptoms: Shortness of breath, Wheezing, Chest pain, Fever, vision change, eye pain, OTC: delsym MEDICATIONS: Current Outpatient Medications Medication Sig rosuvastatin (CRESTOR) 20 mg tablet take 1 tablet by mouth at bedtime meloxicam (MOBIC) 7.5 mg tablet Take 7.5 mg by mouth once daily. Lancets Test blood sugar(s) 1 to 2 times daily. Dx: Type 2 DM - Controlled E11.9 Insulin: No blood sugar diagnostic (BLOOD GLUCOSE TEST) test strip Test blood sugar(s) 1-2 times daily. Dx: Type 2 DM - Controlled E11.9 Insulin: No aspirin, enteric coated (ADULT LOW DOSE ASPIRIN) 81 mg EC tablet Take 1 tablet by mouth once daily. lisinopril (ZESTRIL) 5 mg tablet Take 1 tablet by mouth once daily. metFORMIN (GLUCOPHAGE) 1,000 mg tablet Take 0.5 tablets by mouth once daily. tamsulosin (FLOMAX) 0.4 mg Take 0.4 mg by mouth once daily. finasteride (PROSCAR) 5 mg tablet Take 5 mg by mouth once daily. albuterol HFA (VENTOLIN HFA) 90 mcg/actuation inhaler Inhale 2 Puffs as instructed every 4 hours asneeded for wheezing/shortness of breath. (Patient not taking: Reported on 08/01/2024) No current facility-administered medications for this visit. ALLERGIES: ALLERGIES Allergen Reactions Demerol [Meperidine] Vomiting Sulfa (Sulfonamide * Unknown Elevated temperature Tetanus Toxoid Hives VITALS: BP 119/67 Pulse 79 Temp 36.1 C (97 F) Resp 18 Wt 89 kg (196 lb 3.4 oz) SpO2 97% BMI 26.61 kg/m PHYSICAL EXAM: GEN: mildly ill appearing. Accompanied by his daughter HEENT: PERRL, EOMI, left conjunctiva clear, moderate right conjunctival injection, fine mucoid crust on right eyelashes Ears: canals clear. TMs without erythema, bulge, or effusion Sinuses: non-tender frontal sinus, non-tender maxillary sinuses Throat: moist mucous membranes, no erythema, no exudate Neck: supple, no thyromegaly, no lymphadenopathy HEART: regular rate, regular rhythm, no murmurs LUNGS: clear to auscultation, no wheezes or crackles, no increased WOB ASSESSMENT/PLAN: 1. Acute conjunctivitis of right eye, unspecified acute conjunctivitis type - ICD9: 372.00, ICD10: H10.31 Suspect viral URI last week producing cough and conjunctivitis. [place] eye discussed. Infectious conjunctivitis is most commonly caused by cold viruses and is a self-limited condition which usually resolves in about a week. Bacterial conjunctivitis usually follows a similar course, but symptoms and contagiousness are responsive to antibiotics. Bacterial infection can rarely progress to more serious infection. Hand hygiene with washing or java sql developer is important to reduce spread of the infection. Seek re-evaluation for high fever, increasing periocular redness/swelling, eye pain, or vision change as these can be symptoms of serious infection. - OFLOXACIN 0.3 % EYE DROPS for possible superimposed bacterial conjunctivitis Jesse Avery MD documented in this encounterSelect [facility]24 NoteHNO ID: [id number] Author: LUCINDA KOHLER, ? Service: ? Author Type: Physician Type: Progress Notes Filed: 08/01/2024 08:35 Note Text: Last saw pcp: 07/08/24 Subjective: Patient presents to clinic c/o painful toenails. They state that the nails are especially painful with shoe gear and pressure. Patient states that nails b/l hallux are painful. Patient admits to being diabetic. No other pedal complaints at this time. Patient states no change in medications or medical history since last visit. Objective: Patient presents to clinic ambulating in [facility] Vasc: DP and PT pulses are [...] bilateral were debrided in length and thickness. Is currently using penlac. Very little improvement. Can continue as prescribed or just monitor. Other options discussed include removal. He has elected to just monitor. Patient was instructed on the continued importance of diabetic foot care along with proper diet and keeping their blood sugar under control to prevent complications. Stressed the importance of avoiding barefoot walking, wearing good shoes and inspection of feet. Patient is to RTC in 3-4 months. Lucinda [facility]12-02-2024 History of Present illness Narrative* Lucinda Kohler - 08/01/2024 8:20 AM EST Last saw pcp: 07/08/24 Subjective: Patient presents to clinic c/o painful toenails. They state that the nails are especially painful with shoe gear and pressure. Patient states that nails b/l hallux are painful. Patient admits to being diabetic. No other pedal complaints at this time. Patient states no change in medications or medical history since last visit. Objective: Patient presents to clinic ambulating in [facility] Vasc: DP and PT pulses are palpable bilateral. CFT is less than 5 seconds bilateral. Skin temperature is warm to cool proximal to distal bilateral. There is no edema or varicosities noted. Neuro: Protective sensation is intact to the foot and toes when tested with the 5.07 SWM bilateral.Vibratory sensation is decreased at the hallux IPJ [...] bilateral were debrided in length and thickness. Is currently using penlac. Very little improvement. Can continue as prescribed or just monitor. Other options discussed include removal. He has elected to just monitor. Patient was instructed on the continued importance of diabetic foot care along with proper diet andkeeping their blood sugar under control to prevent complications. Stressed the importance of avoiding barefoot walking, wearing good shoes and inspection of feet. Patient is to RTC in 3-4 months. Lucinda Kohler DPM * La Forrester RN - 08/01/2024 8:07 AM EST Patient presents with: Left Foot - Established Patient, Follow Up, Diabetic Foot Care Right Foot - Established Patient, Follow Up, Diabetic Foot Care Patient presents for follow up diabetic foot/nail care. RAFAEL 05/26/24 documented [facility] Instructions* Patient Instructions* Lucinda Kohler - 08/01/2024 8:20 AM EST Diabetes Foot Care Instructions When [...] it. Apply a bandage and wear a differentpair of shoes. Take Care of Your Toenails Cut toenails after bathing, when they are soft. Cut toenails straight across and smooth with a nail file. Avoid cutting into the corners of toes. Do not cut cuticles. If you have neuropathy (or decreased sensation in your feet) a energy director should always cut your toenails. Be Careful [...] make sure there are no foreign objects orrough areas. Avoid tight socks. Wear natural-fiber socks [...] Go to your health care provider or energy director to treat these conditions. documented in this encounterSelect [facility]24 NoteHNO ID: [id number] Author: LA FORRESTER RN Service: ? Author Type: Registered Nurse Type: Progress Notes Filed: 08/01/2024 08:35 Note Text: Patient presents with: Left Foot - Established Patient, Follow Up, Diabetic Foot Care Right Foot - Established Patient, Follow Up, Diabetic Foot Care Patient presents for follow up diabetic foot/nail care. [facility] 05/26/24[facility]-26-[facility] Instructions* Patient Instructions* Kamla Crowder PA-C - 07/26/2024 9:44 AM EST -- Recommend cutting back on apples. Can continue with the prunes. Kiwi, berries are good for constipation. -- Can try Miralax every other day and then increase if needed. Okay to cut back on it if it is causing diarrhea, fecal urgency. documented in this encounterSelect [facility]11-26-2024 NoteHNO ID: [id number] Author: KAMLA CROWDER PA-C Service: ? Author Type: Physician Digital Analyst Type: Progress Notes Filed: 07/26/2024 09:54 Note Text: CHIEF COMPLAINT: Patient presents with: Constipation: Some fecal incontinence with gas. Fecal urgency when he is not constipated. This consult was requested by No ref. provider found for an opinion regarding constipation, fecal urgency. My final recommendations will be communicated to the requesting health care provider by way of the shared medical record for internal providers or letter via the [employer] for external providers. HPI: Tanisha Salter is a 84 year old male who presents for Constipation (Some fecal incontinence with gas. Fecal urgency when he is not constipated. ). PMHx of BPH, T2DM, HLD, prostate cancer, spinal stenosis, testicular cancer Daughter is present today. Patient tells me that he is dealing with alternating bowel habits. Will have constipation where he isn't going a few days or have fecal urgency with incontinence. Discussed his diet today. Eating relatively healthy with more fiber in the diet. Notes that he has to strain. Doesn't feel like he is fully emptying. Denies abdominal pain, bloating. No rectal bleeding. Denies nausea, vomiting. Appetite is good. Weight is stable. No smoking. Rare alcohol use. Lasts colonoscopy was in his 60's. Does not want one. Latest Ref Rng 07/08/2024 CCP Antibody IgG Qualitative Negative Negative CCP Antibody, IgG <20 Units <15 Uric Acid 4.0 - 8.1 mg/dL 5.7 Rheumatoid Factor <16 IU/mL 13 CURTIS Scr Qual Negative Negative WSR 0 - 15 mm/hr 20 (H) CRP <0.9 mg/dL <0.3 Legend: (H) High Record Review: [facility] / Outside records reviewed. 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 Lundberg [place]. s/p radiation Spinal stenosis lumbar Testicular cancer (HCC) radiation- PAST SURGICAL HISTORY Procedure Laterality Date COLONOSCOPY 2011 normal CYSTOSCOPY 08/2023 HEMORRHOIDECTOMY 1960s ORCHIECTOMY SIMPLE Left 1983 testicular cancer, with radiation PAST SURGICAL HISTORY OF Left knee arthroscopy PAST SURGICAL HISTORY OF 10/2023 Bladder Surgery PAST SURGICAL HISTORY OF 10/09/2023 Revised surgery on bladder neck Dr. Lundberg TONSILLECTOMY HX childhood TRANSURETHRAL ELEC-SURG PROSTATECTOM 06/25/2022 Allergies: ALLERGIES Allergen Reactions Demerol [Meperidine] Vomiting Sulfa (Sulfonamide * Unknown Elevated temperature Tetanus Toxoid Hives Medications: rosuvastatin (CRESTOR) 20 mg tablet take 1 tablet by mouth at bedtime albuterol HFA (VENTOLIN HFA) 90 mcg/actuation inhaler Inhale 2 Puffs as instructed every 4 hours as needed for wheezing/shortness of breath. Lancets Test blood sugar(s) 1 to 2 times daily. Dx: Type 2 DM - Controlled E11.9 Insulin: No blood sugar diagnostic (BLOOD GLUCOSE TEST) test strip Test blood sugar(s) 1-2 times daily. Dx: Type 2 DM - Controlled E11.9 Insulin: No aspirin, enteric coated (ADULT LOW DOSE ASPIRIN) 81 mg EC tablet Take 1 tablet by mouth once daily. lisinopril (ZESTRIL) 5 mg tablet Take 1 tablet by mouth once daily. metFORMIN (GLUCOPHAGE) 1,000 mg tablet Take 0.5 tablets by mouth once daily. tamsulosin (FLOMAX) 0.4 mg Take 0.4 mg by mouth once daily. finasteride (PROSCAR) 5 mg tablet Take 5 mg by mouth once daily. meloxicam (MOBIC) 7.5 mg tablet Take 7.5 mg by mouth once daily. FAMILY HISTORY Problem Relation Age of Onset Alzheimer's Disease Mother Heart Mother Diabetes Father Heart Father Cancer Sister No Known Problems Brother No Known Problems Maternal Grandmother No Known Problems Maternal Grandfather Diabetes Paternal Grandmother No Known Problems Paternal Grandfather Colon Cancer No Family History Employer And Job Title: No employer specified (Retired) Years Of Education Completed: Not specified Marital Status: Social History Tobacco Use Smoking status: Former Current packs/day: 0.00 Average packs/day: 1.5 packs/day for 20.0 years (30.0 ttl pk-yrs) Types: Cigarettes Start date: 07/23/1970 Quit date: 07/23/1990 Years since quittin.0 Smokeless tobacco: Never Vaping Use Vaping status: Never Used Substance Use Topics Alcohol use: Not Currently Comment: rarely Drug use: No Review of Systems: Review of Systems Gastrointestinal: Positive for constipation and diarrhea. Change in bowel habits, Gas All other systems reviewed and are negative. Are you taking any blood thinners? No Physical Examination: Pulse 66 Ht 6' 0 (1.83m) Wt 185 lb (83.9kg) BMI 25.08 kg/(m2). Physical Exam Constitutional: Appearance: Normal appearance. He is normal weigh (more content not included)... [facility]-26-20[facility] History of Present illness Narrative* Kamla Crowder PA-C - 07/26/2024 9:21 AM EST CHIEF COMPLAINT: Patient presents with: Constipation: Some fecal incontinence with gas. Fecal urgency when he is not constipated. This consult was requested by No ref. provider found for an opinion regarding constipation, fecal urgency. My final recommendations will be communicated to the requesting health care provider by way of the shared medical record for internal providers or letter via the [employer] for external providers. HPI: Tanisha Salter is a 84 year old male who presents for Constipation (Some fecal incontinence with gas. Fecal urgency when he is not constipated. ). PMHx of BPH, T2DM, HLD, prostate cancer, spinal stenosis, testicular cancer Daughter is present today. Patient tells me that he is dealing with alternating bowel habits. Will have constipation where he isn't going a few days or have fecal urgency with incontinence. Discussed his diet today. Eating relatively healthy with more fiber in the diet. Notes that he has to strain. Doesn't feel like he is fully emptying. Denies abdominal pain, bloating. No rectal bleeding. Denies nausea, vomiting. Appetiteis good. Weight is stable. No smoking. Rare alcohol use. Lasts colonoscopy was in his 60's. Does not want one. Latest Ref Rng 07/08/2024 CCP Antibody IgG Qualitative Negative Negative CCP Antibody, IgG <20 Units <15 Uric Acid 4.0 - 8.1 mg/dL 5.7 Rheumatoid Factor <16 IU/mL 13 CURTIS Scr Qual Negative Negative WSR 0 - 15 mm/hr 20 (H) CRP <0.9 mg/dL <0.3 Legend: (H) High Record Review: [facility] / Outside records reviewed. 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 s/p radiation Spinal stenosis lumbar Testicular cancer (HCC) radiation- PAST SURGICAL HISTORY Procedure Laterality Date COLONOSCOPY 2012 normal CYSTOSCOPY 08/2023 HEMORRHOIDECTOMY 1960s ORCHIECTOMY SIMPLE Left 1983 testicular cancer, with radiation PAST SURGICAL HISTORY OF Left knee arthroscopy PAST SURGICAL HISTORY OF 10/2023 Bladder Surgery PAST SURGICAL HISTORY OF 10/09/2023 Revised surgery on bladder neck Dr. Lundberg TONSILLECTOMY HX childhood TRANSURETHRAL ELEC-SURG PROSTATECTOM 06/25/2022 Allergies: ALLERGIES Allergen Reactions Demerol [Meperidine] Vomiting Sulfa (Sulfonamide * Unknown Elevated temperature Tetanus Toxoid Hives Medications: rosuvastatin (CRESTOR) 20 mg tablet take 1 tablet by mouth at bedtime albuterol HFA (VENTOLIN HFA) 90 mcg/actuation inhaler Inhale 2 Puffs as instructed every 4 hours asneeded for wheezing/shortness of breath. Lancets Test blood sugar(s) 1 to 2 times daily. Dx: Type 2 DM - Controlled E11.9 Insulin: No blood sugar diagnostic (BLOOD GLUCOSE TEST) test strip Test blood sugar(s) 1-2 times daily. Dx: Type 2 DM - Controlled E11.9 Insulin: No aspirin, enteric coated (ADULT LOW DOSE ASPIRIN) 81 mg EC tablet Take 1 tablet by mouth once daily. lisinopril (ZESTRIL) 5 mg tablet Take 1 tablet by mouth once daily. metFORMIN (GLUCOPHAGE) 1,000 mg tablet Take 0.5 tablets by mouth once daily. tamsulosin (FLOMAX) 0.4 mg Take 0.4 mg by mouth once daily. finasteride (PROSCAR) 5 mg tablet Take 5 mg by mouth once daily. meloxicam (MOBIC) 7.5 mg tablet Take 7.5 mg by mouth once daily. FAMILY HISTORY Problem Relation Age of Onset Alzheimer's Disease Mother Heart Mother Diabetes Father Heart Father Cancer Sister No Known Problems Brother No Known Problems Maternal Grandmother No Known Problems Maternal Grandfather Diabetes Paternal Grandmother No Known Problems Paternal Grandfather Colon Cancer No Family History Employer And Job Title: No employer specified (Retired) Years Of Education Completed: Not specified Marital Status: Social History Tobacco Use Smoking status: Former Current packs/day: 0.00 Average packs/day: 1.5 packs/day for 20.0 years (30.0 ttl pk-yrs) Types: Cigarettes Start date: 07/23/1970 Quit date: 07/23/1990 Years since quittin.0 Smokeless tobacco: Never Vaping Use Vaping status: Never Used Substance Use Topics Alcohol use: Not Currently Comment: rarely Drug use: No Review of Systems: Review of Systems Gastrointestinal: Positive for constipation and diarrhea. Change in bowel habits, Gas All other systems reviewed and are negative. Are you taking any blood thinners? No Physical Examination: Pulse 66 Ht 6' 0 (1.83m) Wt 185 lb (83.9kg) BMI 25.08 kg/(m^2). Physical Exam Constitutional: Appearance: Normal appearance. He is normal weight. HENT: Head: Normocephalic and atraumatic. Eyes: General: No scleral icterus. Extraocular Movements: Extraocular movements intact. Conjunctiva/sclera: Conjunctivae normal. Pupils: Pupils are equal, round, and reactive to light. Cardiovascular: Rate and Rhythm: Normal rate and regular rhythm. Pulses: Normal pulses. Heart sounds: Normal heart sounds. Pulmonary: Effort: Pulmonary effort is normal. Breath sounds: Normal breath sounds. Abdominal: General: Abdomen is flat. Palpations: Abdomen is soft. Tenderness: There is no abdominal tenderness. Comments: Hypoactive bowel sounds on exam Musculoskeletal: General: Normal range of motion. Cervical back: Normal range of motion and neck supple. Skin: General: Skin is warm and dry. Coloration: Skin is not jaundiced. Neurological: General: No focal deficit present. Mental Status: He is alert and oriented to person, place, and time. Psychiatric: Mood and Affect: Mood normal. Behavior: Behavior normal. Thought Content: Thought content normal. Judgment: Judgment normal. Assessment/Plan (K59.00) Constipation, unspecified constipation type (primary encounter diagnosis) 1. Constipation, unspecified constipation type -- Patient with hard stools, moving bowels every few days with straining. -- Discussed Miralax in detail. Was helping but stopped it. Recommend restarting the medication. Can try it every other day. -- Recommend high fiber diet. Explained that apples can be constipated for some patients. Prunes, kiwi are good fruits for bowel movements. Follow up in office PRN. Recommended to please call office/go to ER if fever, chills, chest pain, SOB, diarrhea, nausea, emesis, worsening abdominal pain, dehydration occurs I spent a total of 20 minutes on the date of the service which included preparing to see the patient, [id number] patient care, completing clinical documentation, obtaining and/or reviewing separately obtained history, performing a medically appropriate examination, counseling and educating the pat ient/family/caregiver, and ordering medications, tests, or procedures. Kamla Crowder PA-C July 26, 2024 9:44 AM documented in this encounterSelect [facility] Telephone encounter Note * Telephone Encounter - Madiha Vázquez - 07/13/2024 4:43 PM EST Call from pharmacy requesting refill. Requested Prescriptions Pending Prescriptions Disp Refills rosuvastatin (CRESTOR) 20 mg tablet [Pharmacy Med Name: ROSUVASTATIN CALCIUM 20 MG TAB] 90 tablet 3 Sig: take 1 tablet by mouth at bedtime Patient last seen 05/17/24 Madiha Vázquez [facility] Miscellaneous Notes* Telephone Encounter - Madiha Vázquez - 07/13/2024 4:43 PM EST Call from pharmacy requesting refill. Requested Prescriptions Pending Prescriptions Disp Refills rosuvastatin (CRESTOR) 20 mg tablet [Pharmacy Med Name: ROSUVASTATIN CALCIUM 20 MG TAB] 90 tablet 3 Sig: take 1 tablet by mouth at bedtime Patient last seen 05/17/24 Madiha Vázquez documented in this encounterSelect [facility] [place]11-13-2024 Telephone encounter Note * Telephone Encounter - Irene Olmedo - 07/13/2024 10:58 AM EST Spoke with patient and he declined to schedule at this time and will call us back. [facility] Miscellaneous Notes* Telephone Encounter - Irene Olmedo - 07/13/2024 10:58 AM EST Spoke with patient and he declined to schedule at this time and will call us back. * Telephone Encounter - Irma Melgar MA - 07/12/2024 8:51 AM EST Called and spoke with Pt and Pt's daughter Loren. Relayed results. Verbalized understanding. Sending to schedulers as Pt needs set up for OT. Irma Melgar MA * Telephone Encounter - Irma Melgar MA - 07/12/2024 8:44 AM EST ----- Message from Yolande Warner MD sent at 07/12/2024 7:05 AM EST ----- Patient's blood work to evaluate for different types of arthritis is negative for signs of rheumatoid arthritis, gout, and auto immune disease. He has some mild elevation of a non specific inflammatory marker which I suspect is caused by his osteoarthritis. Awaiting xray results. F/u with OT and continue treatment as discussed in office. documented in this encounterSelect [facility]11-12-2024 Telephone encounter Note * Telephone Encounter - Erika Hernandez LPN - 07/12/2024 1:57 PM EST Phoned patient and reviewed message with him. He voiced understanding and aware we will call once final interpretation is in. Erika Hernandez LPN [facility] Miscellaneous Notes* Telephone Encounter - Erika Hernandez LPN - 07/12/2024 1:57 PM EST Phoned patient and reviewed message with him. He voiced understanding and aware we will call once final interpretation is in. Erika Hernandez LPN * Telephone Encounter - Yolande Warner MD - 07/12/2024 7:57 AM EST I see some arthritis changes on his xray, but no obvious fractures or dislocation. Will await final read from radiologist. * Telephone Encounter - Irene Cabral RN - 07/11/2024 4:13 PM EST Patient requesting PCP to advise regarding recent lab results and hand xray, when able. Hand xray still in process at this time. Patient states he will not be home to take a call until Thursday07/12/24. Irene Cabral RN documented in this encounterSelect [facility]11-12-2024 Telephone encounter Note * Telephone Encounter - Irma Melgar MA - 07/12/2024 8:51 AM EST Called and spoke with Pt and Pt's daughter Loren. Relayed results. Verbalized understanding. Sending to schedulers as Pt needs set up for OT. Irma Melgar MA [facility] Telephone encounter Note* Telephone Encounter - Irma Melgar MA - 07/12/2024 8:44 AM EST ----- Message from Yolande Warner MD sent at 07/12/2024 7:05 AM EST ----- Patient's blood work to evaluate for different types of arthritis is negative for signs of rheumatoid arthritis, gout, and auto immune disease. He has some mild elevation of a non specific inflammatory marker which I suspect is caused by his osteoarthritis. Awaiting xray results. F/u with OT and continue treatment as discussed in office. [facility] Telephone encounter Note* Telephone Encounter - Yolande Warner MD - 07/12/2024 7:57 AM EST I see some arthritis changes on his xray, but no obvious fractures or dislocation. Will await final read from radiologist. [facility] Telephone encounter Note* Telephone Encounter - Irene Cabral RN - 07/11/2024 4:13 PM EST Patient requesting PCP to advise regarding recent lab results and hand xray, when able. Hand xray still in process at this time. Patient states he will not be home to take a call until Thursday07/12/24. Irene Cabral RN [facility]11-[facility] History of Present illness Narrative* Reece Marti RT(R) - 07/08/2024 1:40 PM EST Radiology Service Progress Note PATIENT NAME: Tanisha Salter DATE OF SERVICE: July 08, 2024 TIME: 1:37 PM PATIENT IDENTITY VERIFICATION COMPLETED USING TWO (2) IDENTIFIERS: Name and Date of confirmedby patient verbally. FALL SCREENING: Has the patient had 2 falls in the last year or 1 fall with injury or currently using an Ambulatory Assistive Device (Walker, Cane, Wheelchair, Crutches, etc.)? No PATIENT GENDER DATA: Male PATIENT RELEVANT IMPLANT DATA REVIEWED: Yes PATIENT PRESENTS WITH AN IMPLANTABLE OR ATTACHED FINANCIAL AID COORDINATOR: No RADIOLOGY DEPARTMENT: General X-ray: Exam(s) Completed: Upper Extremity X- Ray(s): Hand, bilateral PERIPHERAL IV DATA: Not applicable SIGNED BY: RT Dolores(R) July 08, 2024 1:37 PM documented in this encounterSelect Medical [facility]ty [facility] [place]11-08-2024 NoteHNO ID: [id number] Author: REECE MARTI RT(R) Service: ? 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 FALL SCREENING: Has the patient had 2 falls in the last year or 1 fall with injury or currently using an Ambulatory Assistive Device (Walker, Cane, Wheelchair, Crutches, etc.)? No PATIENT GENDER DATA: Male PATIENT RELEVANT IMPLANT DATA REVIEWED: Yes PATIENT PRESENTS WITH AN IMPLANTABLE OR ATTACHED FINANCIAL AID COORDINATOR: No RADIOLOGY DEPARTMENT: General X-ray: Exam(s) Completed: Upper Extremity X-Ray(s): Hand, bilateral PERIPHERAL IV DATA: Not applicable SIGNED BY: RT Dolores(Arron) July 08, 2024 1:37 [facility]11-08-2024 NoteHNO ID: [id number] Author: YOLANDE WARNER MD Service: ? Author Type: Physician Type: Progress Notes Filed: 07/08/2024 13:34 Note Text: Chief Complaint Patient presents with: Arthritis: Bilateral hands HPI Tanisha Salter is a 84 year old male who presents here today for Above Complaints. Patient here today complaining of difficulty closing his hands which has been worsening over the last 6 months. Left hand worse than the right. Index and thumb are the worst fingers. Difficulty moving MCP joints and has pain if he tries to close hand all of the way. States that he has trouble tying shoelaces and drops objects frequently. Is able to regain some ROM if he runs hands under warm water. Taking Meloxicam for his back, but does not help with his hands. Denies fever/chills, erythema, swelling. Symptoms are about the same throughout the day. Also notes that he had a fall at home 2-3 days ago while waking into house from garage. Didn't pick his foot up high enough and tripped and fell onto left elbow and bumped his head without LOC. Pain initially on the elbow which is improving with small abrasion. Treating with triple abx ointment. Denies bruising, swelling, slurred speech, facial droop, numbness/tingling/weakness. Using cane for ambulation. Past medical history, appointments, medications, allergies reviewed. 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 s/p radiation Spinal stenosis lumbar Testicular cancer (HCC) radiation- Previous Surgical History PAST SURGICAL HISTORY Procedure Laterality Date COLONOSCOPY 2011 normal CYSTOSCOPY 08/2023 HEMORRHOIDECTOMY 1960s ORCHIECTOMY SIMPLE Left 1983 testicular cancer, with radiation PAST SURGICAL HISTORY OF Left knee arthroscopy PAST SURGICAL HISTORY OF 10/2023 Bladder Surgery PAST SURGICAL HISTORY OF 10/09/2023 Revised surgery on bladder neck Dr. Lundberg TONSILLECTOMY HX childhood TRANSURETHRAL ELEC-SURG PROSTATECTOM 06/25/2022 [...] on File Prior to Visit Medication Sig meloxicam (MOBIC) 7.5 mg tablet Take 7.5 mg by mouth once daily. albuterol HFA (VENTOLIN HFA) 90 mcg/actuation inhaler Inhale 2 Puffs as instructed every 4 hours as needed for wheezing/shortness of breath. Lancets Test blood sugar(s) 1 to 2 times daily. Dx: Type 2 DM - Controlled E11.9 Insulin: No blood sugar diagnostic (BLOOD GLUCOSE TEST) test strip Test blood sugar(s) 1-2 times daily. Dx: Type 2 DM - Controlled E11.9 Insulin: No rosuvastatin (CRESTOR) 20 mg tablet Take 1 tablet by mouth daily at bedtime. aspirin, enteric coated (ADULT LOW DOSE ASPIRIN) 81 mg EC tablet Take 1 tablet by mouth once daily. lisinopril (ZESTRIL) 5 mg tablet Take 1 tablet by mouth once daily. metFORMIN (GLUCOPHAGE) 1,000 mg tablet Take 0.5 tablets by mouth once daily. tamsulosin (FLOMAX) 0.4 mg Take 0.4 mg by mouth once daily. finasteride (PROSCAR) 5 mg tablet Take 5 mg by mouth once daily. No current facility-administered medications on file prior to visit. Social History Social History Tobacco Use Smoking status: Former Current packs/day: 0.00 Average packs/day: 1.5 packs/day for 20.0 years (30.0 ttl pk-yrs) Types: Cigarettes Start date: 07/23/1970 Quit date: 07/23/1990 Years since quittin.9 Smokeless tobacco: Never Vaping Use Vaping status: Never Used Substance Use Topics Alcohol use: Yes Comment: rarely Drug use: No Review of Symptoms REVIEW OF SYSTEMS See HPI EXAM: BP 114/72 Pulse 82 Resp 18 SpO2 99% General Appearance: Well appearing, alert, in no acute distress, well-hydrated, well nourished.. Skin: small abrasion on point of right elbow without cellulitis or drainage. Head: Normocephalic, no masses, lesions, tenderness or abnormalities. Musculoskeletal: swelling of MCP, PIP, and DIP joints bilaterally without erythema or TTP. Limited ROM of MCP, PIP and DIP joints with 4/5 plant and maintenance technician strength. No pain or swelling of the wrists. Mild TTP over right elbow without bursitis, bruising or swelling. Normal ROM. 5/5 strength. Neurologic: Negative findings: speec (more content not included)...[facility]11-08-2024 History of Present illness Narrative* Yolande Warner MD - 07/08/2024 1:02 PM EST Chief Complaint Patient presents with: Arthritis: Bilateral hands HPI Tanisha Salter is a 84 year old male who presents here today for Above Complaints. Patient here today complaining of difficulty closing his hands which has been worsening over the last 6 months. Left hand worse than the right. Index and thumb are the worst fingers. Difficulty moving MCP joints and has pain if he tries to close hand all of the way. States that he has trouble tyingshoelaces and drops objects frequently. Is able to regain some ROM if he runs hands under warm water. Taking Meloxicam for his back, but does not help with his hands. Denies fever/chills, erythema, swelling. Symptoms are about the same throughout the day. Also notes that he had a fall at home 2-3 days ago while waking into house from garage. Didn't pickhis foot up high enough and tripped and fell onto left elbow and bumped his head without LOC. Pain initially on the elbow which is improving with small abrasion. Treating with triple abx ointment. Denies bruising, swelling, slurred speech, facial droop, numbness/tingling/weakness. Using cane for ambulation. Past medical history, appointments, medications, allergies reviewed. 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 Lundberg [place]. s/p radiation Spinal stenosis lumbar Testicular cancer (HCC) radiation- Previous Surgical History PAST SURGICAL HISTORY Procedure Laterality Date COLONOSCOPY 2011 normal CYSTOSCOPY 08/2023 HEMORRHOIDECTOMY 1960s ORCHIECTOMY SIMPLE Left 1983 testicular cancer, with radiation PAST SURGICAL HISTORY OF Left knee arthroscopy PAST SURGICAL HISTORY OF 10/2023 Bladder Surgery PAST SURGICAL HISTORY OF 10/09/2023 Revised surgery on bladder neck Dr. Lundberg TONSILLECTOMY HX childhood TRANSURETHRAL ELEC-SURG PROSTATECTOM 06/25/2022 [...] on File Prior to Visit Medication Sig meloxicam (MOBIC) 7.5 mg tablet Take 7.5 mg by mouth once daily. albuterol HFA (VENTOLIN HFA) 90 mcg/actuation inhaler Inhale 2 Puffs as instructed every 4 hours asneeded for wheezing/shortness of breath. Lancets Test blood sugar(s) 1 to 2 times daily. Dx: Type 2 DM - Controlled E11.9 Insulin: No blood sugar diagnostic (BLOOD GLUCOSE TEST) test strip Test blood sugar(s) 1-2 times daily. Dx: Type 2 DM - Controlled E11.9 Insulin: No rosuvastatin (CRESTOR) 20 mg tablet Take 1 tablet by mouth daily at bedtime. aspirin, enteric coated (ADULT LOW DOSE ASPIRIN) 81 mg EC tablet Take 1 tablet by mouth once daily. lisinopril (ZESTRIL) 5 mg tablet Take 1 tablet by mouth once daily. metFORMIN (GLUCOPHAGE) 1,000 mg tablet Take 0.5 tablets by mouth once daily. tamsulosin (FLOMAX) 0.4 mg Take 0.4 mg by mouth once daily. finasteride (PROSCAR) 5 mg tablet Take 5 mg by mouth once daily. No current facility-administered medications on file prior to visit. Social History Social History Tobacco Use Smoking status: Former Current packs/day: 0.00 Average packs/day: 1.5 packs/day for 20.0 years (30.0 ttl pk-yrs) Types: Cigarettes Start date: 07/23/1970 Quit date: 07/23/1990 Years since quittin.9 Smokeless tobacco: Never Vaping Use Vaping status: Never Used Substance Use Topics Alcohol use: Yes Comment: rarely Drug use: No Review of Symptoms REVIEW OF SYSTEMS See HPI EXAM: BP 114/72 Pulse 82 Resp 18 SpO2 99% General Appearance: Well appearing, alert, in no acute distress, well-hydrated, well nourished.. Skin: small abrasion on point of right elbow without cellulitis or drainage. Head: Normocephalic, no masses, lesions, tenderness or abnormalities. Musculoskeletal: swelling of MCP, PIP, and DIP joints bilaterally without erythema or TTP. Limited ROM of MCP, PIP and DIP joints with 4/5 plant and maintenance technician strength. No pain or swelling of the wrists. Mild TTP over right elbow without bursitis, bruising or swelling. Normal ROM. 5/5 strength. Neurologic: Negative findings: speech normal, mental status intact, cranial nerves 2-12 intact, muscle tone normal, muscle strength normal, sensation to light touch and pinprick normal, reflexes normal and symmetric. Health Maintenance List Depression Screening Never done Anxiety Screening Never done Dilated Retinal Exam due on 01/23/2023 Advance Directive Discussion Never done Diabetic Foot Exam due on 09/17/2024 Urine Albumin:Creatinine Ratio due on 11/04/2024 HbA1C due on 11/06/2024 LDL Cholesterol due on 05/09/2025 Influenza Vaccine Completed RSV Vaccine Completed Shingrix Vaccine Completed Covid-19 Vaccine Completed Pneumococcal Vaccine: 65+ Completed HPV Vaccine Aged Out DTaP,Tdap,Td Vaccine Discontinued ASSESSMENT/PLAN: 1. Arthritis of both hands - ICD9: 716.94, ICD10: M19.041, M19.042 (primary diagnosis) Will work up with xrays and labs as ordered. Discussed continued use of Meloxicam along with ice/heat and will refer to OT for help with ROM and stretching. Discussed surgery referral, but he is not interested in this. Will call with results. - XR HAND GENERAL 3V PA/LAT/OBL BILATERAL - CONSULT TO ROAD OILER - URIC ACID - RHEUMATOID FACTOR - CURTIS BLOOD - CCP ANTIBODY IGG - SEDIMENTATION RATE, WESTERGREN - C-REACTIVE PROTEIN 2. Fall in home, initial encounter - ICD9: E888.9, E849.0, ICD10: W19.XXXA, Y92.009 Trip and fall with mild head injury without LOC. No signs of intracranial hemorrhage on exam and heis refusing imaging despite being on ASA. Red flags for re-assessment reviewed with patient in detail. Continue quad cane for ambulation. 3. Injury of right elbow, initial encounter - ICD9: 959.3, ICD10: S59.901A Abrasion healing well. Discussed use of triple abx ointment BID and ice 2-3 times per day. Call with redness, pain or swelling. No signs of fracture today. 4. Abrasion of right elbow, initial encounter - ICD9: 913.0, ICD10: S50.311A See above. 5. Injury of head, initial encounter - ICD9: 959.01, ICD10: S09.90XA See above. Yolande Warner MD [facility] History of Present illness Narrative* Jourdan Bradley, RT(R) - 06/25/2024 9:30 AM EDT Radiology Service Progress Note PATIENT NAME: Tanisha Salter DATE OF SERVICE: June 25, 2024 TIME: 9:34 AM PATIENT IDENTITY VERIFICATION COMPLETED USING TWO (2) IDENTIFIERS: Name and Date of confirmedby patient verbally. FALL SCREENING: Has the patient had 2 falls in the last year or 1 fall with injury or currently using an Ambulatory Assistive Device (Walker, Cane, Wheelchair, Crutches, etc.)? No PATIENT GENDER DATA: Male PATIENT RELEVANT IMPLANT DATA REVIEWED: Not Applicable PATIENT PRESENTS WITH AN IMPLANTABLE OR ATTACHED FINANCIAL AID COORDINATOR: No RADIOLOGY DEPARTMENT: General X-ray: Exam(s) Completed: Chest X-Ray PERIPHERAL IV DATA: Not applicable SIGNED BY: RT Jewels(Arron) June 25, 2024 9:34 AM documented in this encounter[facility] [place]24 NoteHNO ID: [id number] Author: JOURDAN BRADLEY RT(Arron) Service: ? Author Type: Technologist Type: Progress Notes Filed: 06/25/2024 09:38 Note Text: Radiology Service Progress Note PATIENT NAME: Tanisha Salter DATE OF SERVICE: June 25, 2024 TIME: 9:34 AM PATIENT IDENTITY VERIFICATION COMPLETED USING TWO (2) IDENTIFIERS: Name and Date of confirmed by patient verbally. FALL SCREENING: Has the patient had 2 falls in the last year or 1 fall with injury or currently using an Ambulatory Assistive Device (Walker, Cane, Wheelchair, Crutches, etc.)? No PATIENT GENDER DATA: Male PATIENT RELEVANT IMPLANT DATA REVIEWED: Not Applicable PATIENT PRESENTS WITH AN IMPLANTABLE OR ATTACHED FINANCIAL AID COORDINATOR: No RADIOLOGY DEPARTMENT: General X-ray: Exam(s) Completed: Chest X-Ray PERIPHERAL IV DATA: Not applicable SIGNED BY: RT Jewels(Arron) June 25, 2024 9:[address] [facility]10-26-2024 NoteHNO ID: [id number] Author: YOLANDE WARNER MD Service: ? Author Type: Physician Type: Progress Notes Filed: 06/25/2024 09:24 Note Text: Chief Complaint Patient presents with: cough x 3 weeks HPI Tanisha Salter is a 84 year old male who presents here today for Above Complaints.. Patient complaining of dry cough x 3 weeks. Treated on 06/04 for bacterial conjunctivitis and was given tessalon for cough. Had f/u with Devora Borja 2 days later and advised supportive care. Still complaining of dry hacking cough which is worse in the evening. Tessalon did not help with cough. Treating with Delsym OTC which helps him with sleep. Admits to nasal congestion and rhinorrhea without sinus pain/pressure. Denies chest pain, chest congestion, SOB, wheezing, fever/chills, headaches, sore throat, ear pain/fullness, nausea, vomiting, diarrhea. No sick contacts prior to his symptoms. No improvement in symptoms at all. Past medical history, appointments, medications, allergies reviewed. 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 Lundberg [place]. s/p radiation Spinal stenosis lumbar Testicular cancer (HCC) radiation- Previous Surgical History PAST SURGICAL HISTORY Procedure Laterality Date COLONOSCOPY 2011 normal CYSTOSCOPY 08/2023 HEMORRHOIDECTOMY 1960s ORCHIECTOMY SIMPLE Left 1983 testicular cancer, with radiation PAST SURGICAL HISTORY OF Left knee arthroscopy PAST SURGICAL HISTORY OF 10/2023 Bladder Surgery PAST SURGICAL HISTORY OF 10/09/2023 Revised surgery on bladder neck Dr. Lundberg TONSILLECTOMY HX childhood TRANSURETHRAL ELEC-SURG PROSTATECTOM 06/25/2022 [...] on File Prior to Visit Medication Sig blood sugar diagnostic (BLOOD GLUCOSE TEST) test strip Test blood sugar(s) 1-2 times daily. Dx: Type 2 DM - Controlled E11.9 Insulin: No rosuvastatin (CRESTOR) 20 mg tablet Take 1 tablet by mouth daily at bedtime. lisinopril (ZESTRIL) 5 mg tablet Take 1 tablet by mouth once daily. metFORMIN (GLUCOPHAGE) 1,000 mg tablet Take 0.5 tablets by mouth once daily. tamsulosin (FLOMAX) 0.4 mg Take 0.4 mg by mouth once daily. finasteride (PROSCAR) 5 mg tablet Take 5 mg by mouth once daily. Lancets Test blood sugar(s) 1 to 2 times daily. Dx: Type 2 DM - Controlled E11.9 Insulin: No aspirin, enteric coated (ADULT LOW DOSE ASPIRIN) 81 mg EC tablet Take 1 tablet by mouth once daily. No current facility-administered medications on file prior to visit. Social History Social History Tobacco Use Smoking status: Former Current packs/day: 0.00 Average packs/day: 1.5 packs/day for 20.0 years (30.0 ttl pk-yrs) Types: Cigarettes Start date: 07/23/1970 Quit date: 07/23/1990 Years since quittin.9 Smokeless tobacco: Never Vaping Use Vaping status: Never Used Substance Use Topics Alcohol use: Yes Comment: rarely Drug use: No Review of Symptoms REVIEW OF SYSTEMS See HPI EXAM: BP 112/72 Pulse 68 Temp (!) 35.9 ?C (96.7 ?F) (Temporal) Resp 18 Wt 83.9 kg (185 lb) SpO2 97% BMI 25.09 kg/m? General Appearance: Ill appearing, non toxic. Skin: Skin color, texture, turgor normal, no suspicious rashes or lesions. Head: Normocephalic, no masses, lesions, tenderness or abnormalities. Eyes: Anicteric sclera. Pupils are equally round and reactive to light. Extraocular movements are intact. . Ears: External ears normal, canals clear. Nose/Sinuses: Nares normal, septum midline, mucosa normal, no drainage or sinus tenderness. Oropharynx: Lips, mucosa, and tongue normal, teeth and gums normal, oropharynx normal. Neck: Supple, no adenopathy; thyroid symmetric, normal size, no bruits. Lungs: Lungs clear to auscultation. No wheezing, rhonchi, rales.. Heart: RRR without murmur, gallop, or rubs. No ectopy. Health Maintenance List Depression Screening Never done Anxiety Screening Never done Dilated Retinal Exam due on 01/23/2023 Advance Directive Discussion Never done Diabetic Foot Exam due on 09/17/2024 Urine Albumin:Creatinine Ratio due on 11/04/2024 HbA1C due on 11/06/2024 LDL Cholesterol due on (more content not included)...[facility]10-26-2024 History of Present illness Narrative* Yolande Warner MD - 06/25/2024 9:05 AM EDT Chief Complaint Patient presents with: cough x 3 weeks HPI Tanisha Salter is a 84 year old male who presents here today for Above Complaints.. Patient complaining of dry cough x 3 weeks. Treated on 06/04 for bacterial conjunctivitis and was given tessalon for cough. Had f/u with Devora Borja 2 days later and advised supportive care. Still complaining of dry hacking cough which is worse in the evening. Tessalon did not help with cough. Treating with Delsym OTC which helps him with sleep. Admits to nasal congestion and rhinorrhea withoutsinus pain/pressure. Denies chest pain, chest congestion, SOB, wheezing, fever/chills, headaches, sore throat, ear pain/fullness, nausea, vomiting, diarrhea. No sick contacts prior to his symptoms. No improvement in symptoms at all. Past medical history, appointments, medications, allergies reviewed. 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 Lundberg [place]. s/p radiation Spinal stenosis lumbar Testicular cancer (HCC) radiation- Previous Surgical History PAST SURGICAL HISTORY Procedure Laterality Date COLONOSCOPY 2011 normal CYSTOSCOPY 08/2023 HEMORRHOIDECTOMY 1960s ORCHIECTOMY SIMPLE Left 1983 testicular cancer, with radiation PAST SURGICAL HISTORY OF Left knee arthroscopy PAST SURGICAL HISTORY OF 10/2023 Bladder Surgery PAST SURGICAL HISTORY OF 10/09/2023 Revised surgery on bladder neck Dr. Lundberg TONSILLECTOMY HX childhood TRANSURETHRAL ELEC-SURG PROSTATECTOM 06/25/2022 [...] on File Prior to Visit Medication Sig blood sugar diagnostic (BLOOD GLUCOSE TEST) test strip Test blood sugar(s) 1-2 times daily. Dx: Type 2 DM - Controlled E11.9 Insulin: No rosuvastatin (CRESTOR) 20 mg tablet Take 1 tablet by mouth daily at bedtime. lisinopril (ZESTRIL) 5 mg tablet Take 1 tablet by mouth once daily. metFORMIN (GLUCOPHAGE) 1,000 mg tablet Take 0.5 tablets by mouth once daily. tamsulosin (FLOMAX) 0.4 mg Take 0.4 mg by mouth once daily. finasteride (PROSCAR) 5 mg tablet Take 5 mg by mouth once daily. Lancets Test blood sugar(s) 1 to 2 times daily. Dx: Type 2 DM - Controlled E11.9 Insulin: No aspirin, enteric coated (ADULT LOW DOSE ASPIRIN) 81 mg EC tablet Take 1 tablet by mouth once daily. No current facility-administered medications on file prior to visit. Social History Social History Tobacco Use Smoking status: Former Current packs/day: 0.00 Average packs/day: 1.5 packs/day for 20.0 years (30.0 ttl pk-yrs) Types: Cigarettes Start date: 07/23/1970 Quit date: 07/23/1990 Years since quittin.9 Smokeless tobacco: Never Vaping Use Vaping status: Never Used Substance Use Topics Alcohol use: Yes Comment: rarely Drug use: No Review of Symptoms REVIEW OF SYSTEMS See HPI EXAM: BP 112/72 Pulse 68 Temp (!) 35.9 C (96.7 F) (Temporal) Resp 18 Wt 83.9 kg (185 lb) SpO2 97% BMI 25.09 kg/m General Appearance: Ill appearing, non toxic. Skin: Skin color, texture, turgor normal, no suspicious rashes or lesions. Head: Normocephalic, no masses, lesions, tenderness or abnormalities. Eyes: Anicteric sclera. Pupils are equally round and reactive to light. Extraocular movements are intact. . Ears: External ears normal, canals clear. Nose/Sinuses: Nares normal, septum midline, mucosa normal, no drainage or sinus tenderness. Oropharynx: Lips, mucosa, and tongue normal, teeth and gums normal, oropharynx normal. Neck: Supple, no adenopathy; thyroid symmetric, normal size, no bruits. Lungs: Lungs clear to auscultation. No wheezing, rhonchi, rales.. Heart: RRR without murmur, gallop, or rubs. No ectopy. Health Maintenance List Depression Screening Never done Anxiety Screening Never done Dilated Retinal Exam due on 01/23/2023 Advance Directive Discussion Never done Diabetic Foot Exam due on 09/17/2024 Urine Albumin:Creatinine Ratio due on 11/04/2024 HbA1C due on 11/06/2024 LDL Cholesterol due on 05/09/2025 Influenza Vaccine Completed RSV Vaccine Completed Shingrix Vaccine Completed Covid-19 Vaccine Completed Pneumococcal Vaccine: 65+ Completed HPV Vaccine Aged Out DTaP,Tdap,Td Vaccine Discontinued ASSESSMENT/PLAN: 1. Persistent cough for 3 weeks or longer - ICD9: 786.2, ICD10: R05.3 Normal exam today. Suspect viral infection which is persistent. Will give albuterol for PRN and check CXR with 3 weeks worth of symptoms to rule out PNA. Continue delsym PRN. Push PO fluids. Red flags for re-assessment reviewed with patient in detail. - XR CHEST 2V FRONTAL/LAT - ALBUTEROL SULFATE HFA 90 MCG/ACTUATION AEROSOL INHALER Yolande Warner MD documented [facility] this encounter[facility] [place] Instructions* Patient Instructions* Devora Borja APRN.PUBLIC HEALTH PROGRAM MANAGER - 06/06/2024 8:51 AM EDT Continue with antibiotic eye drop 4 times daily May use a warm washcloth to keep eyes clean, may hold over the eye and tearduct Continue with the Tessalon Perles however may use cough syrup as needed instead. Stay well hydrated Good hand hygiene Any worsening eye symptoms recommend seeing eye dr. Follow up if no improvement. documented in this encounter[facility] [place] History of Present illness Narrative* Devora Borja APRN.CNP - 06/06/2024 8:40 AM EDT This is a 84 year old male who presents today with: Patient presents with: Follow Up: EC follow up HISTORY OF PRESENT ILLNESS: Tanisha Salter is a 84 year old male. Patient presents with: Follow Up: EC follow up Patient of Dr. Warner here in the office for eye pain and discharge. Was seen in [facility] on 06/04/2024, diagnosed with conjunctivitis and URI. Placed on Polytrim for conjunctivitis. Tessalon Perles given for cough. Symptoms started last . Today is the 3rd day on antibiotic eye drop. Cough is worse at night time. Cough is dry. Refers that he cleanses the eyes when he showers. No SOB or difficulty breathing. 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 s/p radiation Spinal stenosis lumbar Testicular cancer (HCC) radiation- PAST SURGICAL HISTORY Procedure Laterality Date COLONOSCOPY 2011 normal CYSTOSCOPY 08/2023 HEMORRHOIDECTOMY 1960s ORCHIECTOMY SIMPLE Left 1983 testicular cancer, with radiation PAST SURGICAL HISTORY OF Left knee arthroscopy PAST SURGICAL HISTORY OF 10/2023 Bladder Surgery PAST SURGICAL HISTORY OF 10/09/2023 Revised surgery on bladder neck Dr. Lundberg TONSILLECTOMY HX childhood TRANSURETHRAL ELEC-SURG PROSTATECTOM 06/25/2022 ALLERGIES Demerol [Meperidine], Sulfa (Sulfonamide Antibiotics), and Tetanus Toxoid MEDICATIONS Current Outpatient Medications Medication Sig trimethoprim-polymyxin (POLYTRIM) 10,000 unit- 1 mg/mL ophthalmic solution Use 1 Drop in the right eye every 4 hours for 7 days. benzonatate (TESSALON PERLE) 100 mg capsule Take 1 capsule by mouth three times a day as needed forcough for up to 7 days. Lancets Test blood sugar(s) 1 to 2 times daily. Dx: Type 2 DM - Controlled E11.9 Insulin: No blood sugar diagnostic (BLOOD GLUCOSE TEST) test strip Test blood sugar(s) 1-2 times daily. Dx: Type 2 DM - Controlled E11.9 Insulin: No rosuvastatin (CRESTOR) 20 mg tablet Take 1 tablet by mouth daily at bedtime. aspirin, enteric coated (ADULT LOW DOSE ASPIRIN) 81 mg EC tablet Take 1 tablet by mouth once daily. lisinopril (ZESTRIL) 5 mg tablet Take 1 tablet by mouth once daily. metFORMIN (GLUCOPHAGE) 1,000 mg tablet Take 0.5 tablets by mouth once daily. tamsulosin (FLOMAX) 0.4 mg Take 0.4 mg by mouth once daily. finasteride (PROSCAR) 5 mg tablet Take 5 mg by mouth once daily. No current facility-administered medications for this visit. FAMILY HISTORY Problem Relation Age of Onset Alzheimer's Disease Mother Heart Mother Diabetes Father Heart Father Cancer Sister No Known Problems Brother No Known Problems Maternal Grandmother No Known Problems Maternal Grandfather Diabetes Paternal Grandmother No Known Problems Paternal Grandfather Social History Tobacco Use Smoking status: Former Current packs/day: 0.00 Average packs/day: 1.5 packs/day for 20.0 years (30.0 ttl pk-yrs) Types: Cigarettes Start date: 07/23/1970 Quit date: 07/23/1990 Years since quittin.8 Smokeless tobacco: Never Vaping Use Vaping status: Never Used Substance Use Topics Alcohol use: Yes Comment: rarely Drug use: No REVIEW OF SYSTEMS GENERAL: No weight loss, malaise or fevers/chills HEENT: + Eye Discharge NECK: Negative for lumps, goiter, pain and significant neck swelling RESPIRATORY: + Cough CARDIOVASCULAR: Negative for chest pain, leg swelling, orthopnea, or palpitations GI: No nausea, vomiting, or diarrhea/constipation. No hematochezia/melena. No heartburn or reflux symptoms. : No history of dysuria, frequency or incontinence MUSCULOSKELETAL: Negative for joint pain or swelling. SKIN: Negative for lesions, rash, and itching ENDOCRINE: Negative for cold or heat intolerance, polyuria, polydipsia and goiter NEURO: No history of headaches, syncope, paralysis, seizures or tremors MOOD: Negative for depression, anxiety, or suicidal ideation. EXAM: BP 117/67 Pulse 76 Resp 16 Wt 83.8 kg (184 lb 11.9 oz) SpO2 98% BMI 25.06 kg/m PHYSICAL EXAM: General Appearance: Well appearing, alert, in no acute distress, well-hydrated, well nourished. Skin: Skin color, texture, turgor normal, no suspicious rashes or lesions. Head: Normocephalic, no masses, lesions, tenderness or abnormalities. Eyes: Erythematic sclera. Pupils are equally round and reactive to light. Extraocular movements areintact. , Yellow crusting noted in bilateral eye with discharge. Ears: External ears normal, canals clear.TM's dull. Nose/Sinuses: Nares normal, septum midline, mucosa normal, no drainage or sinus tenderness. Oropharynx: Lips, mucosa, and tongue normal, teeth and gums normal, oropharynx normal. Neck: Supple, no adenopathy; thyroid symmetric, normal size, no bruits. Lungs: Lungs clear to auscultation. No wheezing, rhonchi, rales. Heart: RRR without murmur, gallop, or rubs. No ectopy. Extremities: No deformities, edema, skin discoloration, clubbing or cyanosis. Good capillary refill. Peripheral Pulses: Normal, Capillary refill <2secs, strong peripheral pulses, Pulses palpable. Neurologic: Gait normal. Sensation grossly intact. ASSESSMENT/PLAN: 1. Bacterial conjunctivitis - ICD9: 372.39, 041.9, ICD10: H10.9 (primary diagnosis) - Continue Polytrim eye drop. course and contagiousness issues discussed, including hand washing. - Instructed to call if high fever, development of periorbital redness or swelling, eye pain, visual changes, concerns or if symptoms persist. - Referral to Ophthalmology if symptoms do not improve. - Stressed importance of using warm compresses and keep eyes clean. 2. URI, acute - ICD9: 465.9, ICD10: J06.9 - Discussed viral etiology and rationale for treatment. - Symptomatic treatment with prn analgesia - Supportive care with fluids and rest Follow up as needed. Discussed treatment plan and patient voices understanding. Patient's questions answered appropriately. Medications and potential side effects were discussed and patient voices understanding. Devora Borja APRN.CNP This note was partially generated using ClosetDash voice recognition system. Note was reviewed for accuracy. There may be minor misspellings or grammar miscues with [employer] voice recognition. documented in this encounter[facility]24 NoteHNO ID: [id number] Author: DEVORA BORJA APRN.CNP Service: ? Author Type: Nurse Practitioner Type: Progress Notes Filed: 06/06/2024 12:01 Note Text: This is a 84 year old male who presents today with: Patient presents with: Follow Up: EC follow up HISTORY OF PRESENT ILLNESS: Tanisha Salter is a 84 year old male. Patient presents with: Follow Up: EC follow up Patient of Dr. Warner here in the office for eye pain and discharge. Was seen in [facility] on 06/04/2024, diagnosed with conjunctivitis and URI. Placed on Polytrim for conjunctivitis. Tessalon Perles given for cough. Symptoms started last . Today is the 3rd day on antibiotic eye drop. Cough is worse at night time. Cough is dry. Refers that he cleanses the eyes when he showers. No SOB or difficulty breathing. 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 s/p radiation Spinal stenosis lumbar Testicular cancer (HCC) radiation- PAST SURGICAL HISTORY Procedure Laterality Date COLONOSCOPY 2011 normal CYSTOSCOPY 08/2023 HEMORRHOIDECTOMY 1960s ORCHIECTOMY SIMPLE Left 1983 testicular cancer, with radiation PAST SURGICAL HISTORY OF Left knee arthroscopy PAST SURGICAL HISTORY OF 10/2023 Bladder Surgery PAST SURGICAL HISTORY OF 10/09/2023 Revised surgery on bladder neck Dr. Lundberg TONSILLECTOMY HX childhood TRANSURETHRAL ELEC-SURG PROSTATECTOM 06/25/2022 ALLERGIES Demerol [Meperidine], Sulfa (Sulfonamide Antibiotics), and Tetanus Toxoid MEDICATIONS Current Outpatient Medications Medication Sig trimethoprim-polymyxin (POLYTRIM) 10,000 unit- 1 mg/mL ophthalmic solution Use 1 Drop in the right eye every 4 hours for 7 days. benzonatate (TESSALON PERLE) 100 mg capsule Take 1 capsule by mouth three times a day as needed for cough for up to 7 days. Lancets Test blood sugar(s) 1 to 2 times daily. Dx: Type 2 DM - Controlled E11.9 Insulin: No blood sugar diagnostic (BLOOD GLUCOSE TEST) test strip Test blood sugar(s) 1-2 times daily. Dx: Type 2 DM - Controlled E11.9 Insulin: No rosuvastatin (CRESTOR) 20 mg tablet Take 1 tablet by mouth daily at bedtime. aspirin, enteric coated (ADULT LOW DOSE ASPIRIN) 81 mg EC tablet Take 1 tablet by mouth once daily. lisinopril (ZESTRIL) 5 mg tablet Take 1 tablet by mouth once daily. metFORMIN (GLUCOPHAGE) 1,000 mg tablet Take 0.5 tablets by mouth once daily. tamsulosin (FLOMAX) 0.4 mg Take 0.4 mg by mouth once daily. finasteride (PROSCAR) 5 mg tablet Take 5 mg by mouth once daily. No current facility-administered medications for this visit. FAMILY HISTORY Problem Relation Age of Onset Alzheimer's Disease Mother Heart Mother Diabetes Father Heart Father Cancer Sister No Known Problems Brother No Known Problems Maternal Grandmother No Known Problems Maternal Grandfather Diabetes Paternal Grandmother No Known Problems Paternal Grandfather Social History Tobacco Use Smoking status: Former Current packs/day: 0.00 Average packs/day: 1.5 packs/day for 20.0 years (30.0 ttl pk-yrs) Types: Cigarettes Start date: 07/23/1970 Quit date: 07/23/1990 Years since quittin.8 Smokeless tobacco: Never Vaping Use Vaping status: Never Used Substance Use Topics Alcohol use: Yes Comment: rarely Drug use: No REVIEW OF SYSTEMS GENERAL: No weight loss, malaise or fevers/chills HEENT: + Eye Discharge NECK: Negative for lumps, goiter, pain and significant neck swelling RESPIRATORY: + Cough CARDIOVASCULAR: Negative for chest pain, leg swelling, orthopnea, or palpitations GI: No nausea, vomiting, or diarrhea/constipation. No hematochezia/melena. No heartburn or reflux symptoms. : No history of dysuria, frequency or incontinence MUSCULOSKELETAL: Negative for joint pain or swelling. SKIN: Negative for lesions, rash, and itching ENDOCRINE: Negative for cold or heat intolerance, polyuria, polydipsia and goiter NEURO: No history of headaches, syncope, paralysis, seizures or tremors MOOD: Negative for depression, anxiety, or suicidal ideation. EXAM: BP 117/67 Pulse 76 Resp 16 Wt 83.8 kg (184 lb 11.9 oz) SpO2 98% BMI 25.06 kg/m? PHYSICAL EXAM: General Appearance: Well appearing, alert, in no acute distress, well-hydrated, well nourished. Skin: Skin color, texture, turgor normal, no suspicious rashes or lesions. Head: Normocephalic, no masses, lesions, tenderness or abnormalities. Eyes: Erythematic sclera. Pupils are equally round and reactive to light. Extraocular movements are intact. , Yellow crusting noted in bilateral eye with discharge. Ears: External ears normal, canals clear.TM's dull. Nos (more content not included)...[facility]10-05-2024 NoteHNO ID: [id number] Author: GLORIA CARVER APRN.PUBLIC HEALTH PROGRAM MANAGER Service: ? Author Type: Nurse Practitioner Type: Progress Notes Filed: 06/04/2024 12:02 Note Text: This note was created using Risingter. Subjective Tanisha Salter is a 84 year old male. Cough Associated symptoms include eye redness. Eye Problem Associated symptoms include coughing. Review of Systems Eyes: Positive for discharge, redness and itching. Respiratory: Positive for cough. Objective BP 128/78 Pulse 80 Temp 36.3 ?C (97.3 ?F) Resp 18 Wt 84 kg (185 lb 3 oz) SpO2 95% BMI 25.12 kg/m? Physical Exam Eyes: General: Right eye: Discharge present. Conjunctiva/sclera: Right eye: Right conjunctiva is injected. Exudate present. Cardiovascular: Rate and Rhythm: Normal rate. Pulmonary: Breath sounds: Normal breath sounds. Neurological: Mental Status: He is alert. Assessment and Plan ASSESSMENT/PLAN: 1. Bacterial conjunctivitis - ICD9: 372.39, 041.9, ICD10: H10.9 (primary diagnosis) - see medication orders - course and contagiousness issues discussed, including hand washing. - Instructed to call if high fever, development of periorbital redness or swelling, eye pain, visual changes, concerns or if symptoms persist. 2. URI, acute - ICD9: 465.9, ICD10: J06.9 - Discussed viral etiology and rationale for treatment. - Symptomatic treatment with prn analgesia - Supportive care with fluids and rest - Follow up in 3-5 days if symptoms persist or sooner if worsening of symptoms - Maynor Carver APRN.CNP Medical Decision Making: Problems: Low: Acute, uncomplicated illness or injury Risk: Moderate: Drug management Medical Decision Making Level: 3 - [facility]10-05-2024 History of Present illness Narrative* Gloria Carver APRN.CARISSA - 06/04/2024 11:51 AM EDT This note was created using Ark[employer] Group[employer]. Subjective Tanisha Salter is a 84 year old male. Cough Associated symptoms include eye redness. Eye Problem Associated symptoms include coughing. Review of Systems Eyes: Positive for discharge, redness and itching. Respiratory: Positive for cough. Objective BP 128/78 Pulse 80 Temp 36.3 C (97.3 F) Resp 18 Wt 84 kg (185 lb 3 oz) SpO2 95% BMI 25.12 kg/m Physical Exam Eyes: General: Right eye: Discharge present. Conjunctiva/sclera: Right eye: Right conjunctiva is injected. Exudate present. Cardiovascular: Rate and Rhythm: Normal rate. Pulmonary: Breath sounds: Normal breath sounds. Neurological: Mental Status: He is alert. Assessment and Plan ASSESSMENT/PLAN: 1. Bacterial conjunctivitis - ICD9: 372.39, 041.9, ICD10: H10.9 (primary diagnosis) - see medication orders - course and contagiousness issues discussed, including hand washing. - Instructed to call if high fever, development of periorbital redness or swelling, eye pain, visual changes, concerns or if symptoms persist. 2. URI, acute - ICD9: 465.9, ICD10: J06.9 - Discussed viral etiology and rationale for treatment. - Symptomatic treatment with prn analgesia - Supportive care with fluids and rest - Follow up in 3-5 days if symptoms persist or sooner if worsening of symptoms - Maynor Carver APRN.CARISSA Medical Decision Making: Problems: Low: Acute, uncomplicated illness or injury Risk: Moderate: Drug management Medical Decision Making Level: 3 - Low documented in this encounterSelect [facility]24 Telephone encounter Note * Telephone Encounter - Irene Cabral RN - 06/01/2024 1:00 PM EDT Patient's daughter Loren calling in with diabetic management related question. Information provided. Irene Cabral RN [facility]10-[facility]24 Miscellaneous Notes* Telephone Encounter - Irene Cabral RN - 06/01/2024 1:00 PM EDT Patient's daughter Loren calling in with diabetic management related question. Information provided. Irene Cabral RN * Telephone Encounter - Apolonia Barnes LPN - 06/01/2024 10:39 AM EDT Phoned and spoke to Loren aware rx for meter, strips, lancets were sent to pharmacy with understanding. * Telephone Encounter - Yolande Warner MD - 06/01/2024 8:20 AM EDT Rx sent. * Telephone Encounter - January Ruelas LPN - 06/01/2024 8:18 AM EDT Spoke to daughter and pt will need lancets also called in. January Ruelas LPN * Telephone Encounter - Yolande Warner MD - 05/31/2024 5:41 PM EDT Rx sent as requested. * Telephone Encounter - Anuradha Tesfaye LPN - 05/31/2024 5:05 PM EDT Patient's daughter notiifed and verbalized understanding. Daughter is requesting glucose monitor and test strips to check blood sugars. * Telephone Encounter - Yolande Warner MD - 05/31/2024 4:59 PM EDT Ideally his blood sugar would stay below 150 when fasting and before bed. Call with readings above 180. * Telephone Encounter - January Ruelas LPN - 05/31/2024 4:52 PM EDT Daughter Loren calling to let you know pt is getting an epidural done tody by Dr. Abraham at [facility]. They were instructed pt's blood sugar may go up over the next 2 weeks. They are going to check on getting a glucose machine at [facility] since they are so close. If they don't get OTC they will call for orders. Main reason daughter is calling or: Checking to see what pt's blood sugar should run after having this injection. Please advise daughter. January Ruelas LPN documented in this encounterSelect [facility] [place]10-02-2024 Telephone encounter Note * Telephone Encounter - Apolonia Barnes LPN - 06/01/2024 10:39 AM EDT Phoned and spoke to Loren maldonado rx for meter, strips, lancets were sent to pharmacy with understanding. [facility]10-[facility]24 Telephone encounter Note* Telephone Encounter - Yolande Warner MD - 06/01/2024 8:20 AM EDT Rx sent. [facility]10-02-[facility]24 Telephone encounter Note* Telephone Encounter - January Ruelas LPN - 06/01/2024 8:18 AM EDT Spoke to daughter and pt will need lancets also called in. January Ruelas LPN [facility]10-01-2024 Telephone encounter Note* Telephone Encounter - Yolande Warner MD - 05/31/2024 5:41 PM EDT Rx sent as requested. [facility] Telephone encounter Note* Telephone Encounter - Anuradha Tesfaye LPN - 05/31/2024 5:05 PM EDT Patient's daughter notiifed and verbalized understanding. Daughter is requesting glucose monitor and test strips to check blood sugars. [facility]10-01-[facility]24 Telephone encounter Note* Telephone Encounter - Yolande Warner MD - 05/31/2024 4:59 PM EDT Ideally his blood sugar would stay below 150 when fasting and before bed. Call with readings above 180. [facility]10-[facility] Telephone encounter Note* Telephone Encounter - January Ruelas LPN - 05/31/2024 4:52 PM EDT Daughter Loren calling to let you know pt is getting an epidural done tody by Dr. Abraham at [facility]. They were instructed pt's blood sugar may go up over the next 2 weeks. They are going to check on getting a glucose machine at [facility] since they are so close. If they don't get OTC they will call for orders. Main reason daughter is calling or: Checking to see what pt's blood sugar should run after having this injection. Please advise daughter. January Ruelas LPN [facility]-27-[facility]24 Telephone encounter Note* Telephone Encounter - Erika Hernandez LPN - 05/27/2024 9:48 AM EDT Patient stopped into the office and stated he was going to be completing his PT outside of the [facility]. Patient requested orders be sent to Dr Estrada and gave me a phone number of [phone]. Asked patient if he meant Dr Abraham? He stated Oh is that his name? I advised him that the number he gave was for Dr Abraham. He sated he talked with his nurse and they said to send orders over to their office. Forwarded PT order most recent OV note and face sheet to Dr Abraham's office as requested. Erika Hernandez LPN [facility]09-27-2024 Miscellaneous Notes* Telephone Encounter - Erika Hernandez LPN - 05/27/2024 9:48 AM EDT Patient stopped into the office and stated he was going to be completing his PT outside of the [facility]. Patient requested orders be sent to Dr Estrada and gave me a phone number of [phone]. Asked patient if he meant Dr Abraham? He stated Oh is that his name? I advised him that the number he gave was for Dr Abraham. He sated he talked with his nurse and they said to send orders over to their office. Forwarded PT order most recent OV note and face sheet to Dr Abraham's office as requested. Erika Hernandez LPN documented in this encounterSelect Medical [facility]ty [facility]09-26-2024 NoteHNO ID: [id number] Author: LUCINDA KOHLER, ? Service: ? Author Type: Physician Type: Progress Notes Filed: 05/26/2024 08:20 Note Text: Last saw pcp: 05/10/24 Subjective: Patient presents to clinic c/o painful toenails. They state that the nails are especially painful with shoe gear and pressure. Patient states that nails 1-5 b/l are painful. No other pedal complaints at this time. Patient states no change in medications or medical history since last visit. Objective: Patient presents to clinic ambulating in [facility] Vasc: DP and PT pulses are palpable [...] bilateral were debrided in length and thickness. Discussed options for dystrophic toenails not limited to continued topical care vs oral medication vs removal. Patient has elected to continue with topical care Patient was instructed on the continued importance of diabetic foot care along with proper diet and keeping their blood sugar under control to prevent complications. Patient is to RTC in 2 months Lucinda Kohler [facility]09-26-2024 NoteHNO ID: [id number] Author: LA FORRESTER RN Service: ? Author Type: Registered Nurse Type: Progress Notes Filed: 05/26/2024 08:20 Note Text: Patient presents with: Left Foot - Established Patient, Follow Up, Diabetic Foot Care Right Foot - Established Patient, Follow Up, Diabetic Foot Care Patient presents for follow up diabetic foot care. RAFAEL 03/24/24[facility] History of Present illness Narrative* Dianna Valencia MD - 05/17/2024 9:00 AM EDT Images from the original note were not included. [facility] [place] [facility] Department of Cardiovascular Medicine SECTION OF VASCULAR MEDICINE OUTPATIENT VISIT DATE May 16, 2024 OUTPATIENT VISIT TYPE CONSULT Name: Tanisha Salter Tanisha Salter is a 84 year old male with a past history as outlined below presenting today forinitial Vascular Medicine consult regarding abnormal vascular imaging. . EMR and chart reviewed. Born 1940 in [place], lived there for 30 years. Healthy as a child, nodevelopmental milestone issues. No congenital limb discrepancy or vascular malformations. FH reviewed for any significant vascular issues.FH of heart disease. Extensive records reviewed including progress notes, specialty consultations, procedure notes, hospital notes, labs, vascular testing, triage notes, and available applicable information in regard to initial vascular consultation. Referral information and appropriate triages were perused as well. Records, charts and EMR perused and reviewed at length prior to initial visit as necessary. PMH reviewed. No history of stroke, LA, TIA. No history of VTE or thrombophila. History of testicular and prostate cancer. Had 5 weeks of RT.. No history of HTN, or hyperlipidemia. Patient has a history of spinal stenosis and chronic back pain and sees pain management. He has a history of BPH and prostate cancer. He follows with oncology. He has a history of hypertension, hyperlipidemia, and diabetes. Patient follows closely with his primary care team. At his recent visit and abdominal aorta ultrasound was ordered and showed a mildly dilated aorta at 2.4 cm which was similar to his CT scan from last year. He was noted to have evidence of atherosclerosis and concern for aortic disease and was recommended a vascular medicine evaluation. Patient presented to [facility] in May 2024 towards this end. Patient has chronic back pain from spinal stenosis. Uses cane, LBP only, no calf, buttock or thigh claudication. No digital color changes. No limb swelling or new skin changes. No neurovascular symptoms. No chest pain, SOB or SALAZAR. Medications reviewed and discussed, on metformin, statin and ACEI. Aspirin naive. [place] Daughter accompanied patient at the time of initial consultation. Has two daughters, one lives close by. Quit smoking in the . No special diet. Used to exercise but backissues preclude some of his exercises. Retired from [employer], moved to [place] about 6 years ago. Is a . Has 6 grand kids. Used to play [employer], likes the beach and to travel. 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 Lundberg [place]. s/p radiation Spinal stenosis lumbar Testicular cancer (HCC) radiation- PAST SURGICAL HISTORY Procedure Laterality Date COLONOSCOPY 2011 normal CYSTOSCOPY 08/2023 HEMORRHOIDECTOMY 1960s ORCHIECTOMY SIMPLE Left 1983 testicular cancer, with radiation PAST SURGICAL HISTORY OF Left knee arthroscopy PAST SURGICAL HISTORY OF 10/2023 Bladder Surgery PAST SURGICAL HISTORY OF 10/09/2023 Revised surgery on bladder neck Dr. Lundberg TONSILLECTOMY HX childhood TRANSURETHRAL ELEC-SURG PROSTATECTOM 06/25/2022 FAMILY HISTORY Problem Relation Age of Onset Alzheimer's Disease Mother Heart Mother Diabetes Father Heart Father Cancer Sister No Known Problems Brother No Known Problems Maternal Grandmother No Known Problems Maternal Grandfather Diabetes Paternal Grandmother No Known Problems Paternal Grandfather Review of Systems: Reviewed and completed per patient questionnaire, all others negative unless otherwise stated in the HPI. Const: Denies anorexia, fever, night sweats and weight change. Eyes: Denies abnormal vision, pain and visual disturbance. ENMT: Denies discharge from the ears, ear pain and tinnitus. Denies altered smell and soreness. Denies dysphagia and sore throat. CV: Denies chest pain, diaphoresis and syncope. Resp: Denies cough, orthopnea, PND, SOB and wheezing. GI: Denies abdominal pain, change in appetite, diarrhea, hematemesis, hematochezia and melena. Musculo: Denies musculoskeletal symptoms other than outlined above. Skin: Denies skin, hair and nail symptoms other than outlined above. Neuro: Denies symptoms other than stated above. Endocrine: Denies intolerance to heat, intolerance to cold, polydipsia, polyphagia and polyuria. [place]: Denies bleeding/bruising tendency Vascular: As above ALLERGIES Allergen Reactions Demerol [Meperidine] Vomiting Sulfa (Sulfonamide * Unknown Elevated temperature Tetanus Toxoid Hives rosuvastatin (CRESTOR) 20 mg tablet, Take 1 tablet by mouth daily at bedtime., Disp: 30 tablet, Rfl: 5 aspirin, enteric coated (ADULT LOW DOSE ASPIRIN) 81 mg EC tablet, Take 1 tablet by mouth once daily., Disp: 30 tablet, Rfl: 5 lisinopril (ZESTRIL) 5 mg tablet, Take 1 tablet by mouth once daily., Disp: 90 tablet, Rfl: 1 metFORMIN (GLUCOPHAGE) 1,000 mg tablet, Take 0.5 tablets by mouth once daily., Disp: 45 tablet, Rfl: 1 [DISCONTINUED] pravastatin (PRAVACHOL) 20 mg tablet, Take 1 tablet by mouth once daily., Disp: 90 tablet, Rfl: 3 tamsulosin (FLOMAX) 0.4 mg, Take 0.4 mg by mouth once daily., Disp: , Rfl: finasteride (PROSCAR) 5 mg tablet, Take 5 mg by mouth once daily., Disp: , Rfl: No facility-administered encounter medications on file as of 05/17/2024. Physical Examination: BP 137/66 Pulse 68 Resp 16 Ht 6' 0 (1.83m) Wt 185 lb (83.9kg) BMI 25.08 kg/(m^2). Const: Appears well nourished. Appears to weigh within normal range. No signs of acute distress present. Speech is clear and appropriate. Alert and oriented. Height is within normal range. Exhibits good posture. Eyes: Conjunctivae clear. Eyelids normal and palpebral fissures equal. No discharge from the eyes. Sclerae are white and without lesions. HEENT: No bifid uvula. Neck is supple and symmetric. No masses appreciated. Trachea midline. Thyroid exhibits no nodule or thyromegaly. No JVD. Resp: Respirations are regular. No use of accessory muscles noted. No intercostal retraction. No wheezing. AP diameter is unremarkable. Chest inspection and palpation reveals no lesions or tenderness. Normal and symmetrical fremitus throughout. Auscultate good airflow. Lungs are clear bilaterally. No prolonged inspiration to expiration ratio. CV: Precordium: no lifts or thrills. Rate is regular. Rhythm is regular. Carotids: 2+ and equal bilaterally, without bruits. Skin: No clubbing, cyanosis or edema. GI: Bowel sounds are normoactive. Abdomen is soft, non tender, and non distended. No abdominal masses palpable. Musculo: Walks with a normal gait for age. Upper Extremities: Strength: Normal and symmetric. Full ROM bilaterally. Lower Extremities: Strength: Normal and symmetric. Full ROM bilaterally. Psych: Alert and oriented x 3. Cooperative during examination. Neuro: No gross sensory or motor deficits. Heme/Lymph: No obvious bruising or adenopathy. Vascular: Femoral pulses: 2+ and equal bilaterally, without bruits. Peripheral pulses intact, no livedo or ulcerations, DP 2+ with normal tones, no abdominal bruits, no limb swelling or digital colorchanges, no CVI changes. Labs: Component Ref Range & Units 8 d ago 4 yr ago Cholesterol, Total <200 mg/dL 137 140 CM Comment: <200 mg/dL, Desirable 200-239 mg/dL, Borderline high >239 mg/dL, High Triglyceride <150 mg/dL 142 134 CM Comment: <150 mg/dL, Normal 150-199 mg/dL, Borderline high 200-499 mg/dL, High >499 mg/dL, Very high HDL Cholesterol >39 mg/dL 40 34 Low CM Comment: 40-59 mg/dL, Acceptable >59 mg/dL, High: Negative risk factor for coronary heart disease <40 mg/dL, Low: Positive risk factor for coronary heart disease Non HDL Cholesterol <130 mg/dL 97 106 CM Comment: <130 mg/dL, Optimal 130-159 mg/dL, Near optimal/above optimal 160-189 mg/dL, Borderline high 190-219 mg/dL, High >219 mg/dL, Very high Secondary prevention optimal non HDL Cholesterol levels are recommended to be <100 mg/dL Fasting Time hrs 12 12 VLDL Cholesterol <30 mg/dL 28 27 TC:HDL Ratio <5.10 3.43 4.12 LDL Cholesterol <100 mg/dL 69 79 C Imagin03/08/2024 7:32 AM - Radiology, [place] In Impression IMPRESSION: NEGATIVE STUDY FOR ABDOMINAL AORTIC ANEURYSM. Ectasia of the mid abdominal aorta with atheromatous plaque and mural thrombus. Grossly stable allowing for difference in imaging technique IMPRESSION 05/17/2024: AORTA Proximal: PSV: 37 cm/s. EDV: 10 cm/s. 2.84 cm x 2.83 cm At renal: PSV: 64 cm/s. EDV: 13 cm/s. 2.27 cm x 2.30 cm Mid: PSV: 79 cm/s. EDV: 6 cm/s. 2.57 cm x 2.52 cm Distal: PSV: 129 cm/s. EDV: 0 cm/s. 1.84 cm x 1.90 cm Heterogeneous plaque in the abdominal aorta throughout. Homogeneous and heterogeneous plaque in the abdominal aorta at mid. Mural thrombus seen in the abdominal aorta at mid. RIGHT VESSELS Common iliac origin: PSV: 118 cm/s. EDV: 13 cm/s. 1.35 cm x 1.32 cm Common iliac proximal: PSV: 87 cm/s. EDV: 4 cm/s. 1.35 cm x 1.31 cm Common iliac mid: PSV: 63 cm/s. EDV: 6 cm/s. 1.58 cm x 1.57 cm Common iliac distal: PSV: 53 cm/s. EDV: 5 cm/s. 1.39 cm x 1.35 cm Internal iliac proximal: PSV: 36 cm/s. EDV: 3 cm/s. 0.80 cm x 0.77 cm Calcified and heterogeneous plaque in the common iliac artery throughout. LEFT VESSELS Common iliac origin: PSV: 112 cm/s. EDV: 0 cm/s. 1.18 cm x 1.18 cm Common iliac proximal: PSV: 80 cm/s. EDV: 0 cm/s. 1.23 cm x 1.24 cm Common iliac mid: PSV: 70 cm/s. EDV: 0 cm/s. 1.17 cm x 1.16 cm Common iliac distal: PSV: 128 cm/s. EDV: 0 cm/s. 1.26 cm x 1.24 cm Internal iliac proximal: PSV: 40 cm/s. EDV: 6 cm/s. 0.79 cm x 0.74 cm Calcified and shadowing plaque in the common iliac artery throughout. AORTA Aorta appears ectatic measuring 2.57 x 2.52 at mid. RIGHT VESSELS Common iliac artery appears ectatic measuring 1.58 x 1.57 cm at mid. Internal iliac artery plaque noted without evidence of hemodynamically significant stenosis . LEFT VESSELS Common iliac artery patent without evidence of aneurysm throughout. Internal iliac artery plaque noted without evidence of hemodynamically significant stenosis at proximal. Assessment & Plan: 1. Atherosclerosis and ectasia of abdominal aorta This a very pleasant 84-year-old male with a past medical history as outlined above who had recent aortic duplex imaging of aorta atherosclerosis and ectatic enlargement. Patient presented for initial vascular medicine consultation in May 2024. At that time he had no evidence of leg claudication, distal embolization, or other worrisome vascular symptoms. Patient does have a history of spinal stenosis and his back pain is his most salient symptom. We discussed atherosclerosis at length including inflammatory pathophysiology, natural history and potential complications, and importance of surveillance. We discussed the use of antiplatelet agents including aspirin and clopidogrel at length including literature support for primary (high risk) and secondary prevention. We discussed antiplatelet regimens, bleeding risk, and risk/benefit ratio at length. We discussed the importance of blood pressure control at length as well. We discussed present medication regimen, blood pressure targets given the latest literature and iteration of the JNC and AHA/ACC, and the importance of blood pressure monitoring and medication compliance. We discussed the importance of lipid control at length also. Vascular disease as a coronary heart disease equivalent discussed at length and in detail with patient. The relationship between vascular disease and lipids reviewed and discussed. The role of statins was emphasized and discussed as well, especially regarding plaque stabilization benefits and its pleotrophic effects on plaque and atherosclerosis. The new ALTAF guidelines and patient stratification based, and CHD equivalents reviewed and discussed with patient. Lipid fractions including HDL, LDL, triglycerides and Non-HDL cholesteroldiscussed with patient as appropriate. If appropriate and clinically indicated, we discussed the relationship between vascular disease andtobacco use at length, as well as the importance of smoking cessation. The strong relationship between vascular disease and tobacco use discussed at length with patient. Also discussed was the interaction of nicotine with other risk factors and its effect on endothelial dysfunction and vascular disease progression. The health risks of tobacco use were discussed at length and in detail with the patient. The relationship between male gender, age, and smoking history to risk of AAA discussed as well as appropriate. AAA screening reviewed and discussed as appropriate as well. If appropriate and clinically indicated, we discussed the relationship between diabetes, tight diabetic control, and vascular disease with patient. The relationship between diabetes and vascular disease was reviewed and discussed with patient. Glucose control and prevention of micro/macrovascular co mplications of DM discussed as well. We also discussed the importance of diet and exercise and the positive impact of a regular exerciseprogram as well as a low fat/cholesterol diet. We provided local resources for patients to explore including bed laborer, local fitness centers, and personal trainers if clinically appropriate. Multiple handouts and teaching aids provided as necessary to reinforce learning and enhance the patient's understanding of the importance of aggressive risk factor modification as it relates to vascular disease. We discussed the importance of aggressive plaque stabilization and regression strategies, risk factor mitigation, and optimal medical therapies. We will add antiplatelet therapy with aspirin given the results of his aorta duplex done earlier today. We will change his statin to rosuvastatin given the literature support for plaque stabilization and regression data. He will need a high intensity statin, blood pressure control and is presently on an WINSOME inhibitor, and we discussed the importance ofwalking program, diet, weight loss, and exercise. He does have evidence of aorta enlargement but does not meet the criteria for an aneurysm. We would recommend annual aortic duplex. Handouts and education were provided at length time of initial consultation to the patient and his daughter. We will follow-up with the patient in 6 months. 2. Hyperlipidemia, unspecified hyperlipidemia type Vascular disease as a coronary heart disease equivalent discussed at length and in detail with patient. The relationship between vascular disease and lipids reviewed and discussed. The role of moderate and high dose statins was emphasized and discussed as well. Discussed recent guidelines and CHDequivalents reviewed and discussed with patient. Discussed plaque stabilization regimen at length with patient including the anti-inflammatory properties of statins and present thinking regarding dosing versus lipid level targets. Discussed statinsas one of the mainstays of therapies in the treatment of atherosclerosis as well as optimal medicaltherapy, risk factor management, and lifestyle modification. Discussed importance of lipid control at length with patient. Reviewed present evidenced based clinical guidelines and targets with patient. Patient is presently on a statin and at the time of initial consultation was transition to rosuvastatin at high intensity. We reviewed and discussed his previous lipid profiles, discussed lipid targets, and the importance of high intensity statins in patients with underlying atherosclerosis. 3. Essential hypertension Blood pressure measurements discussed at length with patient including the importance of control, medications usage, and parameters based on recent peer reviewed guidelines. We discussed blood pressure targets based on clinical situation, cardiovascular status and hemodynamic subsets. Blood pressure is under adequate control at the present time. Would continue present treatment as appropriate andcontinue surveillance regimen. 4. History of diabetes mellitus The relationship between diabetes and vascular disease was reviewed and discussed with patient. Glucose control and prevention of micro/macrovascular complications of DM discussed as well. Discussed previous thinking that diabetes is more of a microvascular disease, and recent studies outlining macrovascular disease risk as well. Discussed medications including categories of diabetes medications that are now shown to impart a favorable cardiovascular outcome including metformin, and new medications. On metformin, last hgb A1c was 6.3. Thank you for this kind consultation and for utilizing our Vascular Medicine program here at the [facility]. Sincerely, Holli Valencia MD, FACP, FSVM, FACC, RPVI Staff Physician Section of Vascular Medicine Jeanne Tristan Department of Cardiovascular Medicine Heart, Vascular and Thoracic [place] [facility] Desk [address] [place] [address] Appts: [phone] documented in this encounterSelect [facility]09-[facility]-2024 NoteHNO ID: [id number] Author: DIANNA VALENCIA MD Service: ? Author Type: Physician Type: Progress Notes Filed: 05/17/2024 11:17 Note Text: Heart and Vascular [place] Jeanne Tristan Department of Cardiovascular Medicine SECTION OF VASCULAR MEDICINE OUTPATIENT VISIT DATE May 16, 2024 OUTPATIENT VISIT TYPE CONSULT Name: Tanisha Salter Tanisha Salter is a 84 year old male with a past history as outlined below presenting today for initial Vascular Medicine consult regarding abnormal vascular imaging. . EMR and chart reviewed. Born 1940 in [place], lived there for 30 years. Healthy as a child, no developmental milestone issues. No congenital limb discrepancy or vascular malformations. FH reviewed for any significant vascular issues.FH of heart disease. Extensive records reviewed including progress notes, specialty consultations, procedure notes, hospital notes, labs, vascular testing, triage notes, and available applicable information in regard to initial vascular consultation. Referral information and appropriate triages were perused as well. Records, charts and EMR perused and reviewed at length prior to initial visit as necessary. PMH reviewed. No history of stroke, LA, TIA. No history of VTE or thrombophila. History of testicular and prostate cancer. Had 5 weeks of RT.. No history of HTN, or hyperlipidemia. Patient has a history of spinal stenosis and chronic back pain and sees pain management. He has a history of BPH and prostate cancer. He follows with oncology. He has a history of hypertension, hyperlipidemia, and diabetes. Patient follows closely with his primary care team. At his recent visit and abdominal aorta ultrasound was ordered and showed a mildly dilated aorta at 2.4 cm which was similar to his CT scan from last year. He was noted to have evidence of atherosclerosis and concern for aortic disease and was recommended a vascular medicine evaluation. Patient presented to [facility] in May 2024 towards this end. Patient has chronic back pain from spinal stenosis. Uses cane, LBP only, no calf, buttock or thigh claudication. No digital color changes. No limb swelling or new skin changes. No neurovascular symptoms. No chest pain, SOB or SALAZAR. Medications reviewed and discussed, on metformin, statin and ACEI. Aspirin naive. Lives in [place]. Daughter accompanied patient at the time of initial consultation. Has two daughters, one lives close by. Quit smoking in the . No special diet. Used to exercise but back issues preclude some of his exercises. Retired from [employer], moved to [place] about 6 years ago. Is a . Has 6 grand kids. Used to play [employer], likes the beach and to travel. 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 Lundberg [place]. s/p radiation Spinal stenosis lumbar Testicular cancer (HCC) radiation- PAST SURGICAL HISTORY Procedure Laterality Date COLONOSCOPY 2011 normal CYSTOSCOPY 08/2023 HEMORRHOIDECTOMY 1960s ORCHIECTOMY SIMPLE Left 1983 testicular cancer, with radiation PAST SURGICAL HISTORY OF Left knee arthroscopy PAST SURGICAL HISTORY OF 10/2023 Bladder Surgery PAST SURGICAL HISTORY OF 10/09/2023 Revised surgery on bladder neck Dr. Lundberg TONSILLECTOMY HX childhood TRANSURETHRAL ELEC-SURG PROSTATECTOM 06/25/2022 FAMILY HISTORY Problem Relation Age of Onset Alzheimer's Disease Mother Heart Mother Diabetes Father Heart Father Cancer Sister No Known Problems Brother No Known Problems Maternal Grandmother No Known Problems Maternal Grandfather Diabetes Paternal Grandmother No Known Problems Paternal Grandfather Review of Systems: Reviewed and completed per patient questionnaire, all others negative unless otherwise stated in the HPI. Const: Denies anorexia, fever, night sweats and weight change. Eyes: Denies abnormal vision, pain and visual disturbance. ENMT: Denies discharge from the ears, ear pain and tinnitus. Denies altered smell and soreness. Denies dysphagia and sore throat. CV: Denies chest pain, diaphoresis and syncope. Resp: Denies cough, orthopnea, PND, SOB and wheezing. GI: Denies abdominal pain, change in appetite, diarrhea, hematemesis, hematochezia and melena. Musculo: Denies musculoskeletal symptoms other than outlined above. Skin: Denies skin, hair and nail symptoms other than outlined above. Neuro: Denies symptoms other than stated above. Endocrine: Denies intolerance to heat, intolerance to cold, polydipsia, polyphagia and polyuria. [place]: Denies bleeding/bruising tendency Vascular: As above ALLERGIES Allergen (more content not included)...[facility]09-10-2024 Note HNO ID: [id number] Author: YOLANDE WARNER MD Service: ? Author Type: Physician Type: Progress Notes Filed: 05/10/2024 09:12 Note Text: Chief Complaint Patient presents with: Follow Up: 6 month HPI Tanisha Salter is a 84 year old male who presents here today [...] HgA1C was Hemoglobin A1C (%) Date Value 05/09/2024 6.3 11/05/2023 6.5 10/18/2021 6.3 04/17/2021 6.4 ) Last Ophthalmology exam was more than 12 months ago Last Podiatry exam was within the past 2 months Patient following up with Dr. Lam pain management for chronic lower back pain and lumbar spinal stenosis.Getting medial branch blocks with last completed 01/06. Not getting much pain relief with this. Discussed surgical options which he is not interested in. Using cane for ambulation, but has not been as active due to back pain. Denies falls. Not taking anything OTC for pain. Has not seen PT recently. 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 Lundberg. They restarted him on the Flomax and Proscar. Weak stream improved. F/u in July. Following up with oncology Dr. Haile at [facility] for history of prostate cancer s/p radiation. PSA in December was 0. Rechecking PSA every 6 months. Considering having us monitor his PSA. Patient has f/u with vascular next week for mural thrombus. Past medical history, appointments, medications, allergies reviewed. Previous Medical History PAST MEDICAL HISTORY 03/24/2023: Adrenal incidentaloma (HCC) No date: BPH (benign prostatic hyperplasia) No date: Diabetes mellitus, type 2 (HCC) 03/24/2023: Ectatic abdominal aorta (HCC) Comment: 2.7 infrarenal aorta, US in 1 year No date: Elevated prostate specific antigen (PSA) No date: Hyperlipidemia No date: Prostate cancer (HCC) Comment: [facility] Ji. s/p radiation No date: Spinal stenosis Comment: lumbar No date: Testicular cancer (HCC) Comment: radiation- 1980s Previous Surgical History PAST SURGICAL HISTORY 2012: COLONOSCOPY Comment: normal 08/2023: CYSTOSCOPY 1960s: HEMORRHOIDECTOMY 1983: ORCHIECTOMY SIMPLE; Left Comment: testicular cancer, with radiation No date: PAST SURGICAL HISTORY OF; Left Comment: knee arthroscopy 10/2023: PAST SURGICAL HISTORY OF Comment: Bladder Surgery 10/09/2023: PAST SURGICAL HISTORY OF Comment: Revised surgery on bladder neck Dr. Lundberg No date: TONSILLECTOMY HX Comment: childhood 06/25/2022: TRANSURETHRAL ELEC-SURG PROSTATECTOM Family History FAMILY HISTORY Problem Relation Age [...] Take 1 tablet by mouth once daily. tamsulosin (FLOMAX) 0.4 mg Take 0.4 mg by mouth once daily. finasteride (PROSCAR) 5 mg tablet Take 5 mg by mouth once daily. lisinopril (ZESTRIL) 5 mg tablet Take 1 tablet by mouth once daily. No current facility-administered medications on file prior to visit. Social History Social History Tobacco Use Smoking status: Former Current packs/day: 0.00 Average packs/day: 1.5 packs/day for 20.0 years (30.0 ttl pk-yrs) Types: Cigarettes Start date: 07/23/1970 Quit date: 07/23/1990 Years since quittin.8 Smokeless tobacco: Never Vaping Use Vaping status: Never Used Substance Use Topics Alcohol use: Yes Comment: rarely Drug use: No Review of Symptoms REVIEW OF SYSTEMS GENERAL: No weight loss, malaise or fevers RESPIRATORY: Negative for cough, hemoptysis, wheezing, COPD, dyspnea or shortness of breath CARDIOVASCULAR: Negative for chest pain, leg swelling, hypertension, CHF or palpitations GI: No nausea, vomiting, or diarrhea SKIN: Negative for lesions, rash, and itching EXAM: BP 102/62 Pulse 71 Resp 16 Wt 84.2 kg (185 lb 9.6 oz) SpO2 96% BMI 23.83 kg/m? General Appearance: Well appearing, al (more content not included)...[facility]09-10-2024 History of Present illness Narrative* Yolande Warner MD - 05/10/2024 7:58 AM EDT Chief Complaint Patient presents with: Follow Up: 6 month HPI Tanisha Salter is a 84 year old male who presents here today for Above Complaints. DIABETES MELLITUS: Mr. Salter was last seen 6 months ago. Since our last visit he denies excessive thirst or increased frequency of urination, numbness, tingling or pain in extremities, new or unusual visual symptoms, and low sugar/hypoglycemic reactions. Follows a diabetic diet most of the time.He is compliant with medication(s) and is tolerating med(s) without any side effects. He reports checking his glucose on a infrequent to not at all basis. Patient's last HgA1C was Hemoglobin A1C (%) Date Value 05/09/2024 6.3 11/05/2023 6.5 10/18/2021 6.3 04/17/2021 6.4 ) Last Ophthalmology exam was more than 12 months ago Last Podiatry exam was within the past 2 months Patient following up with Dr. Lam pain management for chronic lower back pain and lumbar spinal stenosis.Getting medial branch blocks with last completed 01/06. Not getting much pain relief with this. Discussed surgical options which he is not interested in. Using cane for ambulation, but has not been as active due to back pain. Denies falls. Not taking anything OTC for pain. Has not seen PT recently. 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 Lundberg. They restarted him on the Flomax and Proscar. Weak stream improved. F/u in July. Following up with oncology Dr. Haile at [facility] for history of prostate cancer s/p radiation. PSA in December was 0. Rechecking PSA every 6 months. Considering having us monitor his PSA. Patient has f/u with vascular next week for mural thrombus. Past medical history, appointments, medications, allergies reviewed. Previous Medical History PAST MEDICAL HISTORY 03/24/2023: Adrenal incidentaloma (HCC) No date: BPH (benign prostatic hyperplasia) No date: Diabetes mellitus, type 2 (HCC) 03/24/2023: Ectatic abdominal aorta (HCC) Comment: 2.7 infrarenal aorta, US in 1 year No date: Elevated prostate specific antigen (PSA) No date: Hyperlipidemia No date: Prostate cancer (HCC) Comment: [facility]yatta Ji. s/p radiation No date: Spinal stenosis Comment: lumbar No date: Testicular cancer (HCC) Comment: radiation- Previous Surgical History PAST SURGICAL HISTORY 2012: COLONOSCOPY Comment: normal 08/2023: CYSTOSCOPY 1960s: HEMORRHOIDECTOMY 1983: ORCHIECTOMY SIMPLE; Left Comment: testicular cancer, with radiation No date: PAST SURGICAL HISTORY OF; Left Comment: knee arthroscopy 10/2023: PAST SURGICAL HISTORY OF Comment: Bladder Surgery 10/09/2023: PAST SURGICAL HISTORY OF Comment: Revised surgery on bladder neck Dr. Lundberg No date: TONSILLECTOMY HX Comment: childhood 06/25/2022: TRANSURETHRAL ELEC-SURG PROSTATECTOM Family History FAMILY HISTORY Problem Relation Age [...] Take 1 tablet by mouth once daily. tamsulosin (FLOMAX) 0.4 mg Take 0.4 mg by mouth once daily. finasteride (PROSCAR) 5 mg tablet Take 5 mg by mouth once daily. lisinopril (ZESTRIL) 5 mg tablet Take 1 tablet by mouth once daily. No current facility-administered medications on file prior to visit. Social History Social History Tobacco Use Smoking status: Former Current packs/day: 0.00 Average packs/day: 1.5 packs/day for 20.0 years (30.0 ttl pk-yrs) Types: Cigarettes Start date: 07/23/1970 Quit date: 07/23/1990 Years since quittin.8 Smokeless tobacco: Never Vaping Use Vaping status: Never Used Substance Use Topics Alcohol use: Yes Comment: rarely Drug use: No Review of Symptoms REVIEW OF SYSTEMS GENERAL: No weight loss, malaise or fevers RESPIRATORY: Negative for cough, hemoptysis, wheezing, COPD, dyspnea or shortness of breath CARDIOVASCULAR: Negative for chest pain, leg swelling, hypertension, CHF or palpitations GI: No nausea, vomiting, or diarrhea SKIN: Negative for lesions, rash, and itching EXAM: BP 102/62 Pulse 71 Resp 16 Wt 84.2 kg (185 lb 9.6 oz) SpO2 96% BMI 23.83 kg/m General Appearance: Well appearing, alert, in [...] cyanosis. Good capillary refill. Health Maintenance List Depression Screening Never done Anxiety Screening Never done Dilated Retinal Exam due on 01/23/2023 Advance Directive Discussion Never done Covid-19 Vaccine(2022- season) due on 05/01/2024 Influenza Vaccine(1) due on 05/01/2024 Diabetic Foot Exam due on 09/17/2024 Urine Albumin:Creatinine Ratio due on 11/04/2024 HbA1C due on 11/06/2024 LDL Cholesterol due on 05/09/2025 RSV Vaccine Completed Shingrix Vaccine Completed Pneumococcal Vaccine: 65+ Completed HPV Vaccine Aged Out DTaP,Tdap,Td Vaccine Discontinued Data reviewed Latest Ref Rng 11/05/2023 05/09/2024 WBC 3.70 - 11.00 k/uL 4.47 RBC 4.20 - 6.00 m/uL 4.27 Hemoglobin 13.0 - 17.0 g/dL 13.2 Hematocrit 39.0 - 51.0 % 39.1 MCV 80.0 - 100.0 fL 91.6 MCH 26.0 - 34.0 pg 30.9 MCHC 30.5 - 36.0 g/dL 33.8 RDW-CV 11.5 - 15.0 % 13.4 Platelet Count 150 - 400 k/uL 224 MPV 9.0 - 12.7 fL 9.7 Neut% % 67.7 Abs Neut (ANC) 1.45 - 7.50 k/uL 3.03 Lymph% % 20.6 Abs Lymph 1.00 - 4.00 k/uL 0.92 (L) Brule% % 8.1 Abs Brule <0.87 k/uL 0.36 Eosin% % 2.5 Abs Eosin <0.46 k/uL 0.11 Baso% % 0.9 Abs Baso <0.11 k/uL 0.04 Immature Gran % % 0.2 IMMATURE GRANS (ABS) <0.10 k/uL <0.03 NRBC /100 WBC 0.0 Absolute nRBC <0.01 k/uL <0.01 DTYPE Auto Protein, Total 6.3 - 8.0 g/dL 6.8 6.9 Albumin 3.9 - 4.9 g/dL 4.1 4.4 Calcium 8.5 - 10.2 mg/dL 9.6 10.1 Bilirubin, Total 0.2 - 1.3 mg/dL 0.3 0.4 Alkaline Phosphatase 38 - 113 U/L 60 62 AST 14 - 40 U/L 17 14 ALT 10 - 54 U/L 13 10 Glucose 74 - 99 mg/dL 184 (H) 114 (H) BUN 9 - 24 mg/dL 13 13 Creatinine 0.73 - 1.22 mg/dL 0.96 0.90 Sodium 136 - 144 mmol/L 139 136 Potassium 3.7 - 5.1 mmol/L 4.3 4.7 Chloride 98 - 107 mmol/L 100 100 CO2 22 - 30 mmol/L 27 26 Anion Gap 8 - 15 mmol/L 12 10 eGFR >=60 mL/min/1.73m 78 84 Cholesterol, Total <200 mg/dL 137 Triglyceride <150 mg/dL 142 HDL Cholesterol >39 mg/dL 40 Non HDL Cholesterol <130 mg/dL 97 Fasting Time hrs 12 VLDL Cholesterol <30 mg/dL 28 TC:HDL Ratio <5.10 3.43 LDL Cholesterol <100 mg/dL 69 LDL:HDL Ratio <2.54 1.73 Creatinine, Ur Random (UCRR) 20.0 - 300.0 mg/dL 152.4 Albumin, Urine Random mg/L 123.9 Albumin/Creat Ratio <30 mg/g 81 (H) Hemoglobin A1C 4.3 - 5.6 % 6.5 (H) 6.3 (H) Estimated Average Glucose mg/dL 140 134 Legend: (L) Low (H) High ASSESSMENT/PLAN: 1. Controlled type 2 diabetes mellitus without complication, without long-term current use of insulin (HCC) - ICD9: 250.00, ICD10: E11.9 (primary diagnosis) - Controlled - Continue current medications - Statin prescribed - pravastatin - Counseled on healthy diet and regular exercise - Discussed need for and benefit of weight loss. BMI 23.83 kg/(m^2) - Discussed diabetic education issues of diabetes complications and monitoring required, hypoglycemic/hyperglycemic symptoms, and medication-specific side effects and monitoring - Follow up in 6 months, sooner should any other issues arise. 2. Hyperlipidemia, unspecified hyperlipidemia type - ICD9: 272.4, ICD10: E78.5 - Controlled - Continue current medications - Counseled on healthy diet and regular exercise 3. Prostate cancer (HCC) - ICD9: 185, ICD10: C61 S/p radiation. No change in urinary symptoms. PSA 0. Recheck every 6 months. Red flags for re-assessment reviewed with patient in detail. 4. Benign prostatic hyperplasia with nocturia - ICD9: 600.01, 788.43, ICD10: N40.1, R35.1 Improved after surgery and with flomax and Proscar. Continue current regimen. F/u with urology. 5. Lumbar spondylosis - ICD9: 721.3, ICD10: M47.816 Minimal improvement in pain with pain management and nerve block. Refer to PT for further evaluation and treatment. Continue cane for ambulation. Red flags for re-assessment reviewed with patient in detail. - CONSULT TO PHYSICAL THERAPY 6. Lumbar radiculopathy - ICD9: 724.4, ICD10: M54.16 See above. - CONSULT TO PHYSICAL THERAPY 7. Unsteady gait when walking - ICD9: 781.2, ICD10: R26.81 Refer to PT. Continue use of cane. - CONSULT TO PHYSICAL THERAPY 8. Encounter for immunization - ICD9: V03.89, ICD10: Z23 - INFLUENZA VACCINE, PRSV FREE, AGE 65+ YR, HIGH DOSE, TRIVALENT (FLUZONE HIGH-DOSE) Yolande Warner MD documented [facility] Telephone encounter Note * Telephone Encounter - Ene Aleman - 04/11/2024 11:23 AM EDT Prescription Refill Information The patient has been identified by name and date of : Yes Caregiver verified no other encounters exist for this prescription request: Yes Caregiver confirmed with patient/requestor that no other refills are due, in the near future, with this provider at this time: Yes The last office visit in the department: 01/11/24 Does the patient have a future office visit with this provider/department: Yes Requested Prescriptions Pending Prescriptions Disp Refills metFORMIN (GLUCOPHAGE) 1,000 mg tablet 45 tablet 1 Sig: Take 0.5 tablets by mouth once daily. Ene Jones April 11, 2024 11:24 AM [facility]08-12-2024 Miscellaneous Notes* Telephone Encounter - Ene Aleman - 04/11/2024 11:23 AM EDT Prescription Refill Information The patient has been identified by name and date of : Yes Caregiver verified no other encounters exist for this prescription request: Yes Caregiver confirmed with patient/requestor that no other refills are due, in the near future, with this provider at this time: Yes The last office visit in the department: 01/11/24 Does the patient have a future office visit with this provider/department: Yes Requested Prescriptions Pending Prescriptions Disp Refills metFORMIN (GLUCOPHAGE) 1,000 mg tablet 45 tablet 1 Sig: Take 0.5 tablets by mouth once daily. Ene Jones April 11, 2024 11:24 AM documented in this encounterSelect [facility] Instructions* Patient Instructions* Lucinda Kohler - 03/24/2024 8:07 AM EDT Diabetes Foot Care Instructions [...] it. Apply a bandage and wear a differentpair of shoes. Take Care of Your Toenails Cut toenails after bathing, when they are soft. Cut toenails straight across and smooth with a nail file. Avoid cutting into the corners of toes. Do not cut cuticles. If you have neuropathy (or decreased sensation in your feet) a energy director should always cut your toenails. Be Careful [...] make sure there are no foreign objects orrough areas. Avoid tight socks. Wear natural-fiber socks [...] Go to your health care provider or energy director to treat these conditions. documented in this encounterSelect [facility]-25-2024 NoteHNO ID: [id number] Author: LUCINDA OKHLER, ? Service: ? Author Type: Physician Type: Progress Notes Filed: 03/24/2024 08:17 Note Text: Last saw pcp: 11/06/23 Subjective: Patient presents to clinic c/o painful toenails. They state that the nails are especially painful with shoe gear and pressure. Patient states that nails 1-5 b/l are painful. Is using penlac to the toes. Patient admits to being diabetic. No other pedal complaints at this time. Patient states no change in medications or medical history since last visit. Objective: Patient presents to clinic ambulating in chino Vasc: DP and PT pulses are palpable [...] and thickness. Small bleed to left 3rd toe and right 4th toe. Alcohol applied. Band aide declined. He is using penlac. Continue. Other options discussed include lamisil vs removal. Patient was instructed on the continued importance of diabetic foot care along with proper diet and keeping their blood sugar under control to prevent complications. Stressed the importance of avoiding barefoot walking. Patient is to RTC in 2 months Lucinda Kohler [facility]07-25-2024 History of Present illness Narrative* Lucinda Kohler - 03/24/2024 8:06 AM EDT Last saw pcp: 11/06/23 Subjective: Patient presents to clinic c/o painful toenails. They state that the nails are especially painful with shoe gear and pressure. Patient states that nails 1-5 b/l are painful. Is using penlac to the toes. Patient admits to being diabetic. No other pedal complaints at this time. Patient states no change in medications or medical history since last visit. Objective: Patient presents to clinic ambulating in anisha Vasc: DP and PT pulses are palpable bilateral. CFT is less than 5 seconds bilateral. Skin temperature is warm to cool proximal to distal bilateral. There is no edema or varicosities noted. Neuro: Protective sensation is intact to the foot and toes when tested with the 5.07 SWM bilateral.Vibratory sensation is decreased at the hallux IPJ [...] and thickness. Small bleed to left 3rd toe and right 4th toe. Alcohol applied. Band aide declined. He is using penlac. Continue. Other options discussed include lamisil vs removal. Patient was instructed on the continued importance of diabetic foot care along with proper diet andkeeping their blood sugar under control to prevent complications. Stressed the importance of avoiding barefoot walking. Patient is to RTC in 2 months Lucinda Kohler DPM documented in this encounterSelect [facility]-2024 Telephone encounter Note * Telephone Encounter - Erika Hernandez LPN - 03/10/2024 11:11 AM EDT Patient stopped into office 03/10/24 and asked about referral who PCP recommended. Advised patient no one local within [facility] in Vascular Med. Informed patient he would likely need to travel outside of [place] to see someone. He voiced understanding and directed him to go to [facility] and they will assistwith scheduling and could give him names of providers. He voiced understanding. Erika Hernandez LPN [facility]07-11-2024 Miscellaneous Notes* Telephone Encounter - Erika Hernandez LPN - 03/10/2024 11:11 AM EDT Patient stopped into office 03/10/24 and asked about referral who PCP recommended. Advised patient no one local within [facility] in Vascular Med. Informed patient he would likely need to travel outside of [place] to see someone. He voiced understanding and directed him to go to [facility] and they will assistwith scheduling and could give him names of providers. He voiced understanding. Erika Hernandez LPN * Telephone Encounter - Yolande Warner MD - 03/08/2024 10:56 AM EDT Referral order placed. * Telephone Encounter - La Pedro RN - 03/08/2024 10:21 AM EDT Pt called and is notified of providers results and instructions. Pt voices understanding. Pt is ok with consult. Please call to schedule on order is in. La Pedro RN * Telephone Encounter - Yolande Warner MD - 03/08/2024 9:00 AM EDT US negative abdominal aortic aneurysm. His abdominal aorta is still mildly dilated at 2.4 cm which is similar to CT scan from last year. Noted plaque buildup around the aorta and he has blood clot built up around the aorta. Would recommend referral to vascular for further evaluation of this. If agreeable, will place referral order. documented in this encounterSelect [facility]-2024 Telephone encounter Note * Telephone Encounter - Yolande Warner MD - 03/08/2024 10:56 AM EDT Referral order placed. [facility] Telephone encounter Note* Telephone Encounter - La Pedro RN - 03/08/2024 10:21 AM EDT Pt called and is notified of providers results and instructions. Pt voices understanding. Pt is ok with consult. Please call to schedule on order is in. La Pedro RN [facility]07-09-2024 Telephone encounter Note* Telephone Encounter - Yolande Warner MD - 03/08/2024 9:00 AM EDT US negative abdominal aortic aneurysm. His abdominal aorta is still mildly dilated at 2.4 cm which is similar to CT scan from last year. Noted plaque buildup around the aorta and he has blood clot built up around the aorta. Would recommend referral to vascular for further evaluation of this. If agreeable, will place referral order. [facility]-08-2024 NoteHNO ID: [id number] Author: CICI CHRISTINA RDMS Service: ? Author Type: Cardiovascular Sonographer Type: Progress Notes Filed: 03/11/2024 08:09 Note Text: Radiology Service Progress Note PATIENT NAME: Tanisha Salter DATE OF SERVICE: March 11, 2024 TIME: 8:09 AM PATIENT IDENTITY VERIFICATION COMPLETED USING TWO (2) IDENTIFIERS: Name and Date of confirmed by patient verbally. FALL SCREENING: Has the patient had 2 falls in the last year or 1 fall with injury or currently using an Ambulatory Assistive Device (Walker, Cane, Wheelchair, Crutches, etc.)? No PATIENT GENDER DATA: Male PATIENT RELEVANT IMPLANT DATA REVIEWED: Not Applicable PATIENT PRESENTS WITH AN IMPLANTABLE OR ATTACHED FINANCIAL AID COORDINATOR: No RADIOLOGY DEPARTMENT: Ultrasound PERIPHERAL IV DATA: Not applicable SIGNED BY: Cici Christina RDMS RVT March 11, 2024 8:[address] [facility]05-28-2024 Telephone encounter Note* Telephone Encounter - Jude Garcia - 01/26/2024 12:12 PM EDT Call received from patient to cancel procedure scheduled for January 28 and follow up due to family emergency. Patient will call back to reschedule Jude Garcia [place] to Dr. Bull Lam MD / Cristal Caballero CNP [employer] [facility] [place] [address] [place] [id number] Phone. [phone] / Fax. [phone] [facility]05-28-2024 Miscellaneous Notes* Telephone Encounter - Jude Garcia - 01/26/2024 12:12 PM EDT Call received from patient to cancel procedure scheduled for January 28 and follow up due to family emergency. Patient will call back to reschedule Jude Garcia [place] to Dr. Bull Lam MD / Cristal Caballero CNP, APRN [facility] [place] [address] [place] [address] Phone. [phone] / Fax. [phone] documented in this encounterSelect [facility]05-24-2024 NoteHNO ID: [id number] Author: BULL LAM MD Service: Pain Management Author Type: Physician Type: Operative Report Filed: 01/28/2024 07:55 Note Text: Procedure [facility]05-24-2024 NoteHNO ID: [id number] Author: BULL LAM MD Service: Pain Management Author Type: Physician Type: H&P Filed: 01/28/2024 07:55 Note Text: Procedure [facility]05-24-2024 History of Present illness Narrative* Lucinda Kohler - 01/22/2024 8:04 AM EDT Last saw pcp: 11/06/23 Subjective: Patient presents to clinic c/o painful [...] sneakers Vasc: DP and PT pulses are faintly palpable bilateral. CFT is less than 5 seconds bilateral. Skin temperature is warm to cool proximal to distal bilateral. There is mild edema or varicosities noted. Neuro: Protective sensation is intact to the foot and toes when tested with the 5.07 SWM bilateral.Vibratory sensation is absent at the hallux IPJ [...] or crepitus noted. 1st MPJ ROM is decreaswed bilateral. Assessment: Onychomycosis with pain Diabetes Plan: Patient was seen and evaluated. Nails 1-5 bilateral were debrided in length and thickness. We discussed the possible etiologies of discolored, dystrophic, and thickened nails including fungus, yeast, mold as well as in some instances, prior trauma, or mechanical causes such as repetitive microtrauma in shoe gear. We discussed topical medication for discolored toenails which has very low success but no major side effects. We discussed oral medication. Patient will need hepatic testing prior to use. Patient informed of risks associated with Lamisil. We discussed removal of toenails. Patient would like to proceed with penlac. Patient was instructed on the continued importance of diabetic foot care along with proper diet andkeeping their blood sugar under control to prevent complications. Stressed the imortance of avoiding barefoot walking and wearing good shoes. Patient is to RTC in 2 months./ Lucinda Kohler DPM * La Forrester RN - 01/22/2024 7:59 AM EDT Patient presents with: Left Foot - Established Patient, Follow Up, Diabetic Foot Care Right Foot - Established Patient, Follow Up, Diabetic Foot Care Patient presents for diabetic foot care. RAFAEL 11/19/23. documented in this encounterSelect [facility]05-24-2024 Instructions* Patient Instructions* Lucinda Kohler - 01/22/2024 8:04 AM EDT Diabetes Foot Care Instructions When [...] it. Apply a bandage and wear a differentpair of shoes. Take Care of Your Toenails Cut toenails after bathing, when they are soft. Cut toenails straight across and smooth with a nail file. Avoid cutting into the corners of toes. Do not cut cuticles. If you have neuropathy (or decreased sensation in your feet) a energy director should always cut your toenails. Be Careful [...] make sure there are no foreign objects orrough areas. Avoid tight socks. Wear natural-fiber socks [...] Go to your health care provider or energy director to treat these conditions. documented in this encounterSelect [facility]-2024 Telephone encounter Note * Telephone Encounter - June Moreno - 01/07/2024 9:18 AM EDT Pain Diary scanned into patient's chart under Misc Document. June Moreno [facility]05-09-2024 Miscellaneous Notes* Telephone Encounter - June Moreno - 01/07/2024 9:18 AM EDT Pain Diary scanned into patient's chart under Mis Document. June Moreno documented in this encounterSelect [facility]05-09-2024 Telephone encounter Note * Telephone Encounter - June Moreno - 01/07/2024 8:33 AM EDT Procedure(s) being scheduled: TFESI 1.Are you diabetic Yes. Please list the current medications being prescribed metformin. 2. Are you on any blood thinners? No 3. Are you taking any aspirin? No 4. Are you currently taking any antibiotics? No 5. Do you have any allergies to latex? No 6. Do you have any allergies to seafood or shellfish? No 7. Do you have any allergies to x-ray dye? No 8. Did the physician instruct you to take any medication prior to your procedure? No 9. Does this procedure require a sulky driver? Yes If yes, has patient been notified that a sulky driver is needed and must be present at check in? yes 10. Were the pre-procedure instructions explained and provided to the patient? Yes 11. Do you have a pacemaker? No 12. Do you have an internal stimulator of any kind? No 13. Have you received the COVID-19 Vaccine? No. (Patient should not receive a procedure including steroids 14 days prior to their first dose of theCOVID vaccine. They should not receive any procedure containing steroids in the time frame between their 1st and 2nd doses of the COVID vaccine. They should not receive a procedure containing steroids 14 days after their 2nd dose of the COVID vaccine.) June Moreno [facility]05-09-2024 Miscellaneous Notes* Telephone Encounter - June Moreno - 01/07/2024 8:33 AM EDT Procedure(s) being scheduled: TFESI 1.Are you diabetic Yes. Please list the current medications being prescribed metformin. 2. Are you on any blood thinners? No 3. Are you taking any aspirin? No 4. Are you currently taking any antibiotics? No 5. Do you have any allergies to latex? No 6. Do you have any allergies to seafood or shellfish? No 7. Do you have any allergies to x-ray dye? No 8. Did the physician instruct you to take any medication prior to your procedure? No 9. Does this procedure require a sulky driver? Yes If yes, has patient been notified that a sulky driver is needed and must be present at check in? yes 10. Were the pre-procedure instructions explained and provided to the patient? Yes 11. Do you have a pacemaker? No 12. Do you have an internal stimulator of any kind? No 13. Have you received the COVID-19 Vaccine? No. (Patient should not receive a procedure including steroids 14 days prior to their first dose of theCOVID vaccine. They should not receive any procedure containing steroids in the time frame between their 1st and 2nd doses of the COVID vaccine. They should not receive a procedure containing steroids 14 days after their 2nd dose of the COVID vaccine.) June Moreno documented in this encounterSelect Medical [facility]05-09-2024 NoteHNO ID: [id number] Author: ERIKA MASON MA Service: ? Author Type: Metal Patternmaker Apprentice Type: Progress Notes Filed: 01/07/2024 08:32 Note Text: Review of Systems Constitutional: Negative for activity change, chills, fever and unexpected weight change. Gastrointestinal: Negative for bowel retention or incontinence Genitourinary: Negative for difficulty urinating. Negative for bladder retention or incontinence Musculoskeletal: Positive for back pain, gait problem, myalgias, neck pain and neck stiffness. Negative for arthralgias and joint swelling. Neurological: Negative for weakness, numbness and headaches. Psychiatric/Behavioral: Negative for dysphoric mood, sleep disturbance and suicidal ideas. The patient is not nervous/anxious.[facility] History of Present illness Narrative* Erika Mason MA - 01/07/2024 7:57 AM EDT Review of Systems Constitutional: Negative for activity change, chills, fever and unexpected weight change. Gastrointestinal: Negative for bowel retention or incontinence Genitourinary: Negative for difficulty urinating. Negative for bladder retention or incontinence Musculoskeletal: Positive for back pain, gait problem, myalgias, neck pain and neck stiffness. Negative for arthralgias and joint swelling. Neurological: Negative for weakness, numbness and headaches. Psychiatric/Behavioral: Negative for dysphoric mood, sleep disturbance and suicidal ideas. The patient is not nervous/anxious. * Bull Lam MD - 01/05/2024 6:51 AM EDT Images from the original note were not included. [facility] Today's Date: 01/05/2024 Name: Tanisha Salter : 1940 Purpose: Follow-up Patient Evaluation - This is an established patient, returning today for continued evaluation and management of the chief complaint noted below Chief complaint: low back pain Pertinent Past Medical History: Diabetic polyneuropathy, DM type 2, HLD, Prostate CA, Chronic LBP, BPH Pertinent Past Surgeries: (Left) knee arthroscopy, Orchiectomy simple (Left) Plan at last visit: Medications: No Changes - Continue Current Medications Interventional Procedures:Patient is scheduled for the second in a series of 2 medial branch nerve blocks. Medial Branch Block (Diagnostic only, NO STEROIDS) under fluoroscopic guidance BILATERAL SIDES at L2-3 and L3-4 Follow-up: 1-5 days with Physician or CJ Virtual Visit Depending on response to the above plan, consider: ADRIANO at L1 Interval History: Overall pain and functional disability since last visit: Unchanged New Complaints since last visit: No He returns reporting that he continues to have low back pain, radiating into the right > left flank. When he stands and walks, the pain radiates into the anterior thighs bilaterally, occasionally into the medial calves. He has pain within 5 minutes of standing. He has relief almost immediately after sitting. He reports that his legs gave out on him when he was ascending stairs and fell. He has fallen twicerecently. He uses a quad cane for support, which has helped with his balance. He is not currently taking any medications for pain. Diclofenac did not help. Block: 2 of 2 Date: 12/30/2023 Pain response post procedure: 12/08 Pain response pre procedure: 7/10 % overall improvement: <50%% Duration of improvement: 30 minutes (Agent utilized: Bupivacaine 0.75%) Functional Metric Post-Injection (Oswestry Questionnaire at 2 hours post- injection): 26 Baseline (Pre-Injection) Score: 32 % overall functional improvement: <50%% Positive Diagnostic Response? No Baseline ELDER: Pain Intensity 4 - The [...] Interpretation 41% - 60% - severe disability Post-Injection ELDER (11/04/2023): Post-injection ELDER (12/30/2023): Pain Intensity 4 Personal Care (Washing/Dressing) 2 Lifting 4 Walking 3 Sitting 0 Standing 4 Sleeping 0 Sex Life 4 Social Life 3 Traveling 2 Total Score 26 Interpretation 21% - 40% - moderate disability Current Pain Medications: Neuropathics: NSAIDS: Muscle Relaxants: Topicals: Other Prescription or OTC Pain Medications: Opioids (when applicable): Anti-depressants or Mood-Stabilizers: None Anti-Coagulants: None Therapies Attended (Current or Most Recent): No Current Therapies 01/22/2023 AG SPINE COMBINATION Questionnaire GREENLIGHT Completed Date 01/22/2023 Questionnaire Opiod Risk Tool Completed Date 01/22/2023 Comments 0 No question data found. (All drug screens are appropriate unless indicated otherwise) Notabl e Events During Course of Treatment: 01/13/2023 - Initial HPI (Obtained by Bull Lam M.D.). Referred by Yolande Warner MD, for evaluation [...] he was told he has peripheral neuropathy Treatment History: PAIN PROCEDURES: DATE PROCEDURE IMPROVEMENT 12/30/2023 MBB L2-3,3-4 <50% x 30 min (negative diagnostic) 11/04/2023 MBB L2-3,3-4 80% for 1 hr (positive diagnostic) 08/05/2023 MBB L4-5,5-S1 Negative diagnostic 07/01/2023 MBB L4-5, L5-S1 100% x 3 hours (positive diagnostic) 04/01/2023 ILESI L3-4 No relief MEDICATIONS Taken TO DATE (for the chief complaint(s)): Neuropathics: None NSAIDS: Naprosyn (Naproxen) and Mobic (Meloxicam) Muscle Relaxants: None Topicals: None Other Prescription or OTC Pain Medications: None Opioids: Tramadol Data Reviewed Today: Allergies: ALLERGIES Allergen Reactions Demerol [Meperidine] Vomiting Sulfa (Sulfonamide * Unknown Elevated temperature Tetanus Toxoid Hives Social History Tobacco Use Smoking status: Former Packs/day: 1.50 Years: 20.00 Additional pack years: 0.00 Total pack years: 30.00 Types: Cigarettes Quit date: 07/23/1990 Years since quittin.4 Smokeless tobacco: Never Vaping Use Vaping Use: Never used Substance Use Topics Alcohol use: Yes Comment: rarely Drug use: No 12/30/2023 12/30/2023 INTAKE PAIN ASSESSMENT Pain Level 6 0 Pain Location Back-Lower Back-Lower Description Aching Intervention/Comfort measure Positioning Declined Pain Assessment Reassessment Assessment Compliance: PDMP website checked and validated on 01/05/2024 by Bull Lam MD All prescriptions have been APPROPRIATELY filled. No suspicious activity was identified. 01/22/2023 AG SPINE COMBINATION Questionnaire GREENLIGHT Completed Date 01/22/2023 Questionnaire Opiod Risk Tool Completed Date 01/22/2023 Comments 0 (All drug screens are appropriate unless indicated otherwise) Risk Assessment: KELLE-7: 01/22/2023 KELLE - 7 SCORES Score 1 (0-4) minimal anxiety, (5-9) mild anxiety, (10-14) moderate anxiety, (15-21) severe anxiety PHQ-9: 01/22/2023 PHQ-9 Score 0 (0-4) minimal depression, (5-9) mild depression, (10-14) moderate depression, (15-19) moderately severe depression, (20-27) severe depression Diagnostic Studies: Relevant Imaging: MRI Spine Report No resulted procedures found. DATE OF EXAM: Feb 19 2023 12:06PM [facility] 0508 - CT LUMBAR SPINE WO IVCON / PROCEDURE REASON: Spinal stenosis of lumbar region with neurogenic claudication * * * * Physician Interpretation * * * * EXAMINATION: CT LUMBAR SPINE WO IVCON CLINICAL HISTORY: Spinal stenosis of lumbar region with neurogenic claudication TECHNIQUE: Spiral, high resolution axial unenhanced images were obtained from the thoracolumbar junction to the sacrum with sagittal and coronal planar reconstructions. MQ: [id number]_3 CT Radiation dose: Integrated Dose-Length Product (DLP) for this visit = 1070 mGy*cm. CT Dose Reduction Employed: Automated exposure control(AEC) and iterative recon COMPARISON: Lumbar spine radiographs 01/22/2023 RESULT: Counting reference: Lumbosacral junction. For the purposes of this report, L4-5 is considered the level of the iliac crest and assume there are 5 lumbar-type vertebrae. Anatomic variant: None. Inbound Customer Service Agent (topogram) images: No significant findings. Alignment: Grade 1 degenerative anterolisthesis of L2-L3. Alignment is otherwise anatomic. Bone marrow /fracture: Anterior flowing osteophytes from L1 extending superiorly out of the [id number], likely due to diffuse idiopathic skeletal hyperostosis. [...] disc bulge and facet arthropathy causing moderate tosevere canal narrowing and severe bilateral foraminal stenosis. [...] of the bilateral sacroiliac joints, likely degenerative. Thevisualized sacrum and iliac wings are within normal limits. Electrodiagnostic Study (EMG): None Recent Labs: Creatinine Date Value Ref Range Status 11/05/2023 0.96 0.73 - 1.22 mg/dL Final No results found for: EGFR Glucose, Point of Care Date Value Ref Range Status 12/30/2023 129 (A) 74 - 99 mg/dL Final Comment: Location:[facility], [address] [place] [address], [facility] The Accu-Chek Inform II glucose meter has [...] and ROS obtained by others. Physical Exam: 01/07/24 0759 Pulse: 73 Resp: 16 SpO2: 95% Neuro-Lower: Neural Tension Signs: Negative slump in Bilateral lower limbs Sensation: intact to light touch in the L2-S2 Bilateral lower limb dermatomes Muscle Tone: Normal and symmetric throughout without clonus Strength: Iliopsoas (L2): 5 Left, 4 Right Quadriceps (L3) 5 Left, 5 Right [...] at end range: None Sacroiliac Maneuvers: Deferred IMPRESSION: 83 year old male presents with complaint(s) of primarily axial low back pain, with a component of intermittent claudication that limits his ability to stand and walk. He has started falling. There is new weakness in the right hip flexors, as well as known weakness in the left great toe extensors. CT shows multilevel stenosis. He has had negative diagnostic responses to facet joint blocks for L2-3 through L5-S1 bilaterally. Epidural did not offer relief. He may be a surgical candidate. I have offered him a surgical referral, which he has declined reportedly due to his age and lack of interest in surgeries. Diagnoses: (M48.062) Spinal stenosis of lumbar region with neurogenic claudication (primary encounter diagnosis) (M54.16) Lumbar radiculopathy (M47.816) Lumbar spondylosis PLAN: Tanisha Salter would benefit from the following to reach personal goals for decreasing pain, improving function and work participation, and/or improving quality of life: Medications: No Changes - Continue Current Medications Interventional Procedures: Epidural Steroid Injection - Transforaminal Approach (TFESI) under fluoroscopic guidance BILATERAL SIDES at S1 Floor Waxer Needed: Epidural - YES Anticoagulant - Hold Needed: N/A (Not currently on Anticoagulants) Anticoagulant - Currently Taking: None Allergies (relevant): None Scheduling - Mobility (Can Patient independently transfer on/off an OR or Procedure table?): YES (May schedule at any location) Scheduling - Additional Info: None Studies: None Functional Buddhism: NONE Advised again to discuss his CT Abdomen findings with his PCP Referrals: No additional considerations at present Follow-up: 2 months Depending on response to the above plan, consider: Surgical referral - offered 12/2023, patient declined; SCS trial - literature given 12/2023, updated CT (with contrast) vs MRI (claustrophobia) Compliance and Clinic Policies Reviewed and/or Discussed Today: None Attribution: In addition to reviewing the information noted above, some elements copied from my most recent clinical note(s), including the physical exam (completed in entirety today), and the impression and plan sections, have been updated where appropriate. All reflect current medical decision making from today's date. Bull Lam MD Pain Management [facility], [facility] documented in this encounterSelect Medical Specialty [facility]05-07-2024 NoteHNO ID: [id number] Author: BULL LAM MD Service: ? Author Type: Physician Type: Progress Notes Filed: 01/07/2024 08:32 Note Text: [facility] Today's Date: 01/05/2024 Name: Tanisha Salter : 1940 Purpose: Follow-up Patient Evaluation - This is an established patient, returning today for continued evaluation and management of the chief complaint noted below Chief complaint: low back pain Pertinent Past Medical History: Diabetic polyneuropathy, DM type 2, HLD, Prostate CA, Chronic LBP, BPH Pertinent Past Surgeries: (Left) knee arthroscopy, Orchiectomy simple (Left) Plan at last visit: Medications: No Changes - Continue Current Medications Interventional Procedures:Patient is scheduled for the second in a series of 2 medial branch nerve blocks. Medial Branch Block (Diagnostic only, NO STEROIDS) under fluoroscopic guidance BILATERAL SIDES at L2-3 and L3-4 Follow-up: 1-5 days with Physician or CJ Virtual Visit Depending on response to the above plan, consider: ADRIANO at L1 Interval History: Overall pain and functional disability since last visit: Unchanged New Complaints since last visit: No He returns reporting that he continues to have low back pain, radiating into the right > left flank. When he stands and walks, the pain radiates into the anterior thighs bilaterally, occasionally into the medial calves. He has pain within 5 minutes of standing. He has relief almost immediately after sitting. He reports that his legs gave out on him when he was ascending stairs and fell. He has fallen twice recently. He uses a quad cane for support, which has helped with his balance. He is not currently taking any medications for pain. Diclofenac did not help. Block: of Date: 12/30/2023 Pain response post procedure: 12/08 Pain response pre procedure: 7/10 % overall improvement: <50%% Duration of improvement: 30 minutes (Agent utilized: Bupivacaine 0.75%) Functional Metric Post-Injection (Oswestry Questionnaire at 2 hours post-injection): 26 Baseline (Pre-Injection) Score: 32 % overall functional improvement: <50%% Positive Diagnostic Response? No Baseline ELDER: Pain Intensity 4 - The [...] Interpretation 41% - 60% - severe disability Post-Injection ELDER (11/04/2023): Post-injection ELDER (12/30/2023): Pain Intensity 4 Personal Care (Washing/Dressing) 2 Lifting 4 Walking 3 Sitting 0 Standing 4 Sleeping 0 Sex Life 4 Social Life 3 Traveling 2 Total Score 26 Interpretation 21% - 40% - moderate disability Current Pain Medications: Neuropathics: NSAIDS: Muscle Relaxants: Topicals: Other Prescription or OTC Pain Medications: Opioids (when applicable): Anti-depressants or Mood-Stabilizers: None Anti-Coagulants: None Therapies Attended (Current or Most Recent): No Current Therapies 01/22/2023 AG SPINE COMBINATION Questionnaire GREENLIGHT Completed Date 01/22/2023 Questionnaire Opiod Risk Tool Completed Date 01/22/2023 Comments 0 No question data found. (All drug screens are appropriate unless indicated otherwise) Notable Events During Course of Treatment: 01/13/2023 - Initial HPI (Obtained by Bull Lam M.D.). Referred by Yolande Warner MD, for evaluation [...] he was told he has peripheral neuropathy Treatment History: PAIN PROCEDURES: DATE PROCEDURE IMPROVEMENT 12/30/2023 MBB L2-3,3-4 <50% x 30 min (negative diagnostic) 11/04/2023 MBB L2-3,3-4 80% for 1 hr (positive diagnostic) 08/05/2023 MBB L4-5,5-S1 Negative diagnostic 07/01/2023 MBB L4-5, L5-S1 100% x 3 hours (positive diagnostic) 04/01/2023 LI (more content not included)...[facility] 11-19-2023 History of Present illness Narrative* Lucinda Kohler - 11/19/2023 8:50 AM EDT Last saw pcp: 11/06/23 Subjective: Patient presents to clinic c/o painful [...] quinten Vasc: DP and PT pulses are palpable bilateral. CFT is less than 5 seconds bilateral. Skin temperature is warm to cool proximal to distal bilateral. There is mild edema or varicosities noted. Neuro: Protective sensation is intact to the foot and toes when tested with the 5.07 SWM bilateral.Vibratory sensation is decreased at the hallux IPJ bilateral. The hallux is downgoing bilateral. Derm: Nails 1-5 bl are painful, discolored-yellow, thick, crumbly, dystrophic and [...] noted. 1st MPJ ROM is decreased bilateral. Hammertoe is present to b/l 3rd toe Assessment: Onychomycosis with pain Diabetes Plan: Patient was seen and evaluated. Nails 1-5 bilateral were debrided in length and thickness. Discussed hammertoe of b/l 3rd toe. Options discussed include padding vs tenotomy. Patient has elected to continue with conservative care Patient was instructed on the continued importance of diabetic foot care along with proper diet andkeeping their blood sugar under control to prevent complications. Patient is to RTC in 3-4 months. Lucinda Kohler DPM * La Forrester RN - 11/19/2023 8:29 AM EDT Patient presents with: Left Foot - Established Patient, Follow Up, Diabetic Foot Care Right Foot - Established Patient, Follow Up, Diabetic Foot Care Patient presents for follow up diabetic foot/nail care. RAFAEL 09/17/23. documented in this encounterSelect Medical [facility]03-21-2024 Instructions* Patient Instructions* Lucinda Kohler - 11/19/2023 8:50 AM EDT Diabetes Foot Care Instructions When [...] it. Apply a bandage and wear a differentpair of shoes. Take Care of Your Toenails Cut toenails after bathing, when they are soft. Cut toenails straight across and smooth with a nail file. Avoid cutting into the corners of toes. Do not cut cuticles. If you have neuropathy (or decreased sensation in your feet) a energy director should always cut your toenails. Be Careful [...] make sure there are no foreign objects orrough areas. Avoid tight socks. Wear natural-fiber socks [...] Go to your health care provider or energy director to treat these conditions. documented in this encounterSelect Medical Specialty [facility] [place]03-11-2024 Miscellaneous Notes* Telephone Encounter - Erika Hernandez LPN - 11/09/2023 1:02 PM EDT Phoned patient and reviewed provider's message with him. He stated I know he told me when I was inthere but I forgot what he told me it was for. Patient state to let Dr Warner know he said thank you for letting him know again what it was for. * Telephone Encounter - Yolande Warner MD - 11/09/2023 11:26 AM EDT I discussed with him in office that this was for kidney protection since he is a diabetic. I would recommend he take the 5 mg daily and we will monitor his kidney function and urine albumin levels year. * Telephone Encounter - Nacho Rivas - 11/09/2023 8:15 AM EDT Patient stopped in wondering why he was put on lisinopril and wondering what he needed to be on it for. I told him I would send a message to ask. documented in this encounterSelect Medical [facility]ty [facility]03-08-2024 History of Present illness Narrative* Yolande Warner MD - 11/06/2023 9:01 AM EST Chief Complaint Patient presents with: Follow Up: [...] Follows a diabetic diet most of the time.He is compliant with medication(s) and is tolerating med(s) without any side effects. He reports checking his glucose on a infrequent to not at all basis. Patient's last HgA1C was Hemoglobin A1C (%) Date Value 11/05/2023 6.5 05/07/2023 6.5 10/18/2021 6.3 04/17/2021 6.4 ) Last Ophthalmology exam was within the past 12 months Last Podiatry exam was within the past 12 months Patient following up with Dr. Lam pain management for chronic lower back pain and lumbar spinal stenosis.Getting medial branch blocks with last completed yesterday. Not getting much pain relief with this. Considering ablation. BPH/prostate cancer: patient with bladder neck constriction in October requiring zavala and revision of bladder neck surgery by Dr. Lundberg. They restarted him on the Flomax and Proscar. Weak stream is somewhat improved. F/u scheduled for next week. Following up with oncology Dr. Haile at [facility] for history of prostate cancer s/p radiation. PSA in July was 0. Rechecking PSA every 6 months. Overdue for US of aorta for previous finding of ectatic aorta. Past medical history, appointments, medications, allergies reviewed. 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 s/p radiation Spinal stenosis lumbar Testicular cancer (HCC) radiation- Previous Surgical History PAST SURGICAL HISTORY Procedure Laterality Date COLONOSCOPY 2011 normal HEMORRHOIDECTOMY 1960s ORCHIECTOMY SIMPLE Left 1983 testicular cancer, with radiation PAST SURGICAL HISTORY OF Left knee arthroscopy PAST SURGICAL HISTORY OF 10/2023 Bladder Surgery TONSILLECTOMY HX childhood TRANSURETHRAL ELEC-SURG PROSTATECTOM 06/25/2022 [...] once daily. tamsulosin (FLOMAX) 0.4 mg Take 0.4 mg by mouth once daily. finasteride (PROSCAR) 5 mg tablet Take 5 mg by mouth once daily. pravastatin (PRAVACHOL) 20 [...] for lesions, rash, and itching EXAM: BP 108/62 Pulse 70 Resp 16 Wt 87.9 kg (193 lb 12.8 oz) SpO2 97% BMI 23.59 kg/m General Appearance: Well appearing, alert, in [...] Good capillary refill. . Health Maintenance List RSV Vaccine(1 - 1-dose 60+ series) Never done Dilated Retinal Exam due on 01/23/2023 Advance Directive Discussion Never done Depression Assessment due on 08/31/2023 LDL Cholesterol due on 05/07/2024 HbA1C due on 05/07/2024 Diabetic Foot Exam due on 09/17/2024 Urine Albumin:Creatinine Ratio due on 11/04/2024 Influenza Vaccine Completed Shingrix Vaccine Completed Covid-19 Vaccine Completed Pneumococcal Vaccine: 65+ Completed HPV Vaccine Aged Out DTaP,Tdap,Td Vaccine Discontinued Data reviewed Component Latest Ref Rng & Units 11/05/2023 WBC 3.70 - 11.00 k/uL 4.47 RBC 4.20 - 6.00 m/uL 4.27 Hemoglobin 13.0 - 17.0 g/dL 13.2 Hematocrit 39.0 - 51.0 % 39.1 MCV 80.0 - 100.0 fL 91.6 MCH 26.0 - 34.0 pg 30.9 MCHC 30.5 - 36.0 g/dL 33.8 RDW-CV 11.5 - 15.0 % 13.4 Platelet Count 150 - 400 k/uL 224 MPV 9.0 - 12.7 fL 9.7 Neut% % 67.7 Abs Neut (ANC) 1.45 - 7.50 k/uL 3.03 Lymph% % 20.6 Abs Lymph 1.00 - 4.00 k/uL 0.92 (L) Brule% % 8.1 Abs Brule <0.87 k/uL 0.36 Eosin% % 2.5 Abs Eosin <0.46 k/uL 0.11 Baso% % 0.9 Abs Baso <0.11 k/uL 0.04 Immature Gran % % 0.2 IMMATURE GRANS (ABS) <0.10 k/uL <0.03 NRBC /100 WBC 0.0 Absolute nRBC <0.01 k/uL <0.01 DTYPE Auto Protein, Total 6.3 - 8.0 g/dL 6.8 Albumin 3.9 - 4.9 g/dL 4.1 Calcium 8.5 - 10.2 mg/dL 9.6 Bilirubin, Total 0.2 - 1.3 mg/dL 0.3 Alkaline Phosphatase 38 - 113 U/L 60 AST 14 - 40 U/L 17 ALT 10 - 54 U/L 13 Glucose 74 - 99 mg/dL 184 (H) BUN 9 - 24 mg/dL 13 Creatinine 0.73 - 1.22 mg/dL 0.96 Sodium 136 - 144 mmol/L 139 Potassium 3.7 - 5.1 mmol/L 4.3 Chloride 97 - 105 mmol/L 100 CO2 22 - 30 mmol/L 27 Anion Gap 9 - 18 mmol/L 12 eGFR >=60 mL/min/1.73m 78 Creatinine, Ur Random (UCRR) 20.0 - 300.0 mg/dL 152.4 Albumin, Urine Random mg/L 123.9 Albumin/Creat Ratio <30 mg/g 81 (H) Hemoglobin A1C 4.3 - 5.6 % 6.5 (H) Estimated Average Glucose mg/dL 140 ASSESSMENT/PLAN: 1. Controlled type 2 diabetes mellitus without complication, without long-term current use of insulin (HCC) - ICD9: 250.00, ICD10: E11.9 (primary diagnosis) - Controlled - Continue current medications - Blood glucose monitoring on a once daily schedule - Counseled on healthy diet and regular exercise - Discussed need for and benefit of weight loss. BMI 23.59 kg/(m^2) - Discussed diabetic education issues of diabetes complications and monitoring required, hypoglycemic/hyperglycemic symptoms, and medication-specific side effects and monitoring - Follow up in 6 months, sooner should any other issues arise. - COMP METABOLIC PANEL - HGB A1C - LIPID PANEL BASIC 2. Diabetic polyneuropathy associated with type 2 diabetes mellitus (HCC) - ICD9: 250.60, 357.2, ICD10: E11.42 Stable on current regimen. 3. Prostate cancer (HCC) - ICD9: 185, ICD10: C61 In remission. Managed by oncology/urology. Will f/u recommendations. 4. Lumbar spondylosis - ICD9: 721.3, ICD10: M47.816 Managed by pain management. F/u recommendations. 5. Lumbar radiculopathy - ICD9: 724.4, ICD10: M54.16 Managed by pain management. F/u recommendations. 6. Ectatic abdominal aorta (HCC) - ICD9: 447.72, ICD10: I77.811 Advised to schedule previously ordered US. 7. Benign prostatic hyperplasia with nocturia - ICD9: 600.01, 788.43, ICD10: N40.1, R35.1 Symptoms improved after recent catheter and repeat surgery. Continue current regimen. F/u with urology. - PRAVASTATIN 20 MG TABLET 8. Hyperlipidemia, unspecified hyperlipidemia type - ICD9: 272.4, ICD10: E78.5 - Controlled - Continue current medications - Counseled on healthy diet and regular exercise - PRAVASTATIN 20 MG TABLET Yolande Warner MD documented in this encounterSelect Medical [facility]ty [facility]03-07-2024 Miscellaneous Notes* Telephone Encounter - Erika Hernandez LPN - 11/05/2023 10:05 AM EST Message left for patient advising orders placed as requested. * Telephone Encounter - Yolande Warner MD - 11/05/2023 9:08 AM EST Labs ordered as requested. Does not have to be fasting. * Telephone Encounter - Radha Meraz, FRANCISCO - 11/05/2023 8:43 AM EST Orders pended for 6 month labs. Pt would like to get drawn today if possible. His appt is tomorrow with Dr. Warner. Please call pt as soon as orders are placed. * Telephone Encounter - Doreen Salamanca - 11/05/2023 7:28 AM EST Pt came in asking about bloodwork before his appointment on 11/05, I explained that there are no orders in and that I can send a phone note but it may not be answered by tomorrow Please call pt if orders are put in Please review and advise Thank you! documented in this encounterSelect Medical [facility]ty [facility]03-07-2024 History of Present illness Narrative* Cristal Caballero APRN.CARISSA - 11/05/2023 9:45 AM EST Images from the original note were not included. [facility] Today's Date: 11/05/2023 Name: Tanisha Salter : 1940 Purpose: Post-Procedure Evaluation Chief complaint: low back pain Pertinent Past Medical History: Diabetic polyneuropathy, DM type 2, HLD, Prostate CA, Chronic LBP Pertinent Past Surgeries:none Pertinent Social History: Interval History: Overall pain and functional disability [...] or bladder control, unintentional weight loss, and fevers,chills, or night sweats. Patient is here reporting that his pain was relieved after having the injection done yesterday. States that he had a medial branch nerve block done at a higher level than he had done in the past and he states he repeat received greater than 80% relief for about an hour. Patient would like to continue with the series to see if he gets relief again. Current Pain Medications: Neuropathics: none NSAIDS:diclofenacPatient had [...] Data Reviewed: PAIN PROCEDURES: DATE PROCEDURE IMPROVEMENT 11/04/2023 MBB L2-L4 80% for 1 hr 07/01/2023 MBB L4-5, L5-S1 100% x 3 [...] temperature Tetanus Toxoid Hives INTAKE PAIN ASSESSMENT 11/04/2023 11/05/2023 Are you having pain associated with your visit today? - Yes, Provider notified Pain Scales - Verbal (Numeric Rating or Visual Analog Scale) Pain Level 0 0 Pain Location Back-Lower Back-Lower Description - Dull;Aching;Sharp Duration Amount of Time - - Duration Units - Years Frequency - Intermittent Intervention/Comfort measure - Reposition;Relaxation;Positioning Pain Assessment Reassessment - AG SPINE PAIN OSWESTRY QUESTIONAIRE Pain Intensity 3- The pain is moderate at the moment Personal Care (Washing/Dressing) 2 - I can look after myself normally but it causes extra pain Lifting 4 - I can lift only very light weights Walking 3- Pain prevents me from walking more than 1/2 mile Sitting 1 - I can sit in my favorite chair as long as I like Standing 4 - Pain prevents me from standing more than 10 minutes Sleeping 0- I can sleep well only by using medication Sex Life 0 - My sex life is normal and causes no pain Social Life 2 - My social life is normal but increases the degree of pain Traveling 1 - I can travel anywhere but it gives me extra pain Total Score 20 Interpretation 21% - 40% - moderate disability Compliance: PDMP website checked and validated on 11/05/2023 by Cristal Caballero APRN.PUBLIC HEALTH PROGRAM MANAGER All prescriptions have been APPROPRIATELY filled. No suspicious activity was identified. Recent Drug screens: AG SPINE COMBINATION 01/22/2023 Questionnaire GREENLIGHT Completed Date 01/22/2023 Questionnaire Opiod Risk Tool Completed Date 01/22/2023 Comments 0 No question data found. (All drug screens are appropriate unless indicated otherwise) Risk Assessment: KELLE-7: KELLE - 7 SCORES 01/22/2023 KELLE-7 Score 1 (0-4) minimal anxiety, (5-9) mild anxiety, (10-14) moderate anxiety, (15-21) severe anxiety PHQ-9: PHQ-9 01/22/2023 Score 0 (0-4) minimal depression, (5-9) mild depression, (10-14) moderate depression, (15-19) moderately severe depression, (20-27) severe depression Diagnostic Studies: Relevant Imaging: DATE OF EXAM: Feb 19 2023 12:06PM [facility] 0508 - CT LUMBAR SPINE WO [facility] / PROCEDURE REASON: Spinal stenosis of lumbar region with neurogenic claudication * * * * Physician Interpretation * * * * EXAMINATION: CT LUMBAR SPINE WO IVCON CLINICAL HISTORY: Spinal stenosis of lumbar region with neurogenic claudication TECHNIQUE: Spiral, high resolution axial unenhanced images were obtained from the thoracolumbar junction to the sacrum with sagittal and coronal planar reconstructions. MQ: CTLSPWO_3 CT Radiation dose: Integrated Dose-Length Product (DLP) for this visit = 1070 mGy*cm. CT Dose Reduction Employed: Automated exposure control(AEC) and iterative recon COMPARISON: Lumbar spine radiographs 01/22/2023 RESULT: Counting reference: Lumbosacral junction. For the purposes of this report, L4-5 is considered the level of the iliac crest and assume there are 5 lumbar-type vertebrae. Anatomic variant: None. Inbound Customer Service Agent (topogram) images: No significant findings. Alignment: Grade 1 degenerative anterolisthesis of L2-L3. Alignment is otherwise anatomic. Bone marrow /fracture: Anterior flowing osteophytes from L1 extending superiorly out of the [id number]-[id number]-[id number], likely due to diffuse idiopathic skeletal hyperostosis. [...] and iliac wings are within normal limits. Electrodiagnostic Study (EMG): None Recent Labs: Creatinine Date Value Ref Range Status 05/07/2023 0.95 0.73 - 1.22 mg/dL Final No results found for: EGFR Glucose, Point of Care Date Value Ref Range Status 08/05/2023 113 (A) 74 - 99 mg/dL Final Comment: Location:[facility], [address] [place] [address], [id number] The Accu-Chek Inform II glucose meter has [...] blood gas instrument) in the above situations. WBC Date Value Ref Range Status 07/30/2023 5.00 3.70 - 11.00 k/uL Final Hemoglobin Date Value Ref Range Status 07/30/2023 12.9 (L) 13.0 - 17.0 g/dL Final Hematocrit Date Value Ref Range Status 07/30/2023 38.8 (L) 39.0 - 51.0 % Final Platelet Count Date Value Ref Range Status 07/30/2023 228 150 - 400 k/uL Final Current Medications, Past Medical History, Past Surgical History, Family History, Social History and Review of Systems: On today's date, noted above, I have confirmed and edited as necessary, the PFSH and ROS obtained by others. Physic al Exam: 11/05/23 0942 Pulse: 67 Resp: 16 SpO2: 98% Physical Exam Vitals reviewed. Constitutional: General: He is not in acute distress. Appearance: He is not ill-appearing. HENT: Head: Normocephalic and atraumatic. Eyes: Conjunctiva/sclera: Conjunctivae normal. Cardiovascular: Pulses: Normal pulses. Pulmonary: Effort: Pulmonary effort is normal. No respiratory distress. Musculoskeletal: Lumbar back: Tenderness present. Decreased range of motion. Back: Comments: Positive facet loading bilaterally Skin: General: Skin is warm and dry. Neurological: Mental Status: He is alert and oriented to person, place, and time. Gait: Gait normal. Psychiatric: Mood and Affect: Mood and affect normal. Behavior: Behavior normal. Behavior is cooperative. IMPRESSION: 83 year old male presents with complaint(s) of Low back pain. Patient reported excellent relief for 1 hour from the medial branch nerve block done yesterday lumbar spine L2-L4 bilateral. Will continue with the series as he feels it helped. If successful we will schedule for an RFA. Diagnoses: (M47.816) Lumbar spondylosis (primary encounter diagnosis) (M48.061) Spinal stenosis, lumbar region, without neurogenic claudication (M54.50, G89.29) Chronic low back pain without sciatica, unspecified back pain laterality (M48.062) Spinal stenosis of lumbar region with neurogenic claudication CHRISTIANNE: Tanisha Malcolm Joie would benefit from the following to reach personal goals for decreasing pain, improving function and work participation, and/or improving quality of life: Medications: No Changes - Continue Current Medications Interventional Procedures:Patient is scheduled for the second in a series of 2 medial branch nerve blocks. Medial Branch Block (Diagnostic only, NO STEROIDS) under fluoroscopic guidance BILATERAL SIDES at L2-3 and L3-4 Floor Waxer Needed: Medial Branch Blocks - YES Anticoagulants: None Relevant Allergies: None Additional Info: None Studies: None Functional Buddhism: NONE Referrals: No additional considerations at present Follow-up: 1-5 days with Physician or CJ Virtual Visit Depending on response to the above plan, consider: ADRIANO at L1 Patient Education, Compliance and Clinic Policies Reviewed and/or Discussed Today: None Attribution: In addition to reviewing the information noted above, some elements copied from my most recent clinical note(s), including the physical exam (completed in entirety today), and the impression and plan sections, have been updated where appropriate. All reflect current medical decision making from today's date. Cristal Caballero APRN.PUBLIC HEALTH PROGRAM MANAGER Pain Management [facility] * Erika Mason MA - 11/05/2023 9:40 AM EST Review of Systems Constitutional: Negative for activity change, chills, fever and unexpected weight change. Gastrointestinal: Negative for bowel retention or incontinence Genitourinary: Negative for difficulty urinating. Negative for bladder retention or incontinence Musculoskeletal: Positive for back pain, gait problem and myalgias. Negative for arthralgias, jointswelling, neck pain and neck stiffness. Neurological: Negative for weakness, numbness and headaches. Psychiatric/Behavioral: Negative for dysphoric mood, sleep disturbance and suicidal ideas. The patient is not nervous/anxious. documented in this encounterSelect [facility]-12-[facility]24 Miscellaneous Notes* Telephone Encounter - Erika Hernandez LPN - 10/12/2023 1:00 PM EST Patient has been identified by name and date of : Yes, Provider Alana Date 10/12/23 Time 1:00 pm Patient stopped in person for refill(s): Requested Prescriptions Pending Prescriptions Disp Refills metFORMIN (GLUCOPHAGE) 1,000 mg tablet 45 tablet 1 Sig: Take 0.5 tablets by mouth once daily. Date of last office visit in primary care: 05/08/2023 Date of next office visit in primary care: 11/06/2023 Please advise. Thank you. Erika Hernandez LPN. documented in this encounterSelect Medical [facility] [place]12-14-2023 Discharge summary Author Stone Hay [facility] August 13, 2023 7:19pm Note Date/Time August 13, 2023 6:02pm [facility] Medical Records Department [address] [place] [address] Emergency Department Summary 08/13/23 MR#: [id number] Acct: [id number] Name: TANISHA SALTER Rep #:[id number] : 1940 83 From: Stone De Los [place] PCP: Dr. Perfecto Warner MD Status :REG ER Location: ED HPI History of Present Illness Chief Complaint: [facility] Medical History Arthritis Back pain Cancer Constipation Diabetes High cholesterol Indwelling urethral catheter present Testicular cancer Wears dentures Home Medications finasteride 5 mg tablet 5 mg PO DAILY 09/07/18 [History Last Taken Unknown] metformin 500 mg tablet,extended release 24 hr 500 mg PO DAILY 09/07/18 [History Last Taken Unknown] pravastatin 20 mg tablet 20 mg PO DAILY 01/30/22 [History Last Taken Unknown] Tamsulosin Hcl 0.4 mg PO DAILY 07/13/23 [History Last Taken Unknown] Allergy/AdvReac Type Severity Reaction Status Date / Time Sulfa (Sulfonamide Allergy Fever and Verified 08/13/23 17:49 Antibiotics) skin rash Tetanus Vaccines and Toxoid Allergy Rash Verified 08/13/23 17:49 meperidine [From Demerol] AdvReac Vomiting Verified 08/13/23 17:49 Family History Father Heart disease Diabetes Mother Myocardial infarction Alzheimer disease Grandmother Cancer Sister Breast cancer Surgical History History of removal of testicle Hx of cystoscopy Hx of knee surgery S/P TURP (status post transurethral resection of prostate) Social History Smoking Status: Former smoker pack-years: 30 Tobacco: How many years used: 30 alcohol intake: current alcohol intake frequency: holidays/special occasions only substance use type: does not use diet: diabetic EXAM Physical Exam Const Vital Signs: 08/13/23 17:49 08/13/23 18:10 Temperature 97.3 F L Temperature Source Temporal Pulse Rate 91 Respiratory Rate 16 Respiratory Effort Normal Respiratory Depth Normal Respiratory Pattern Normal Blood Pressure 124/70 H Blood Pressure Mean 88 Pulse Ox 97 Oxygen Delivery Method Room Air [facility] Narrative Medical decision making narrative: HISTORY OF PRESENT ILLNESS: 83-year-old male here with mechanical fall and head trauma. REVIEW OF SYSTEMS: Pertinent positives: Headache Pertinent negatives: Focal weakness, vomiting PHYSICAL EXAM: Nursing triage notes reviewed, Vital signs reviewed Primary Survey Airway: Intact Breathing: Bilateral breath sounds Circulation: Palpable bilateral femorals, Palpable bilateral radial, Palpable bilateral DP and Palpable bilateral PT Disability / Spine precautions GCS Score: Eye Openin Verbal Response: 5 Motor Response: 6 Secondary Survey Constitutional: Please see MDM Head: Small abrasion to posterior occiput midface stable, NO jaw malocclusion, No Cephalohematoma, and No Lacerations noted Eye: Pupils equal round and reactive to light, Extraocular muscles intact and Noperiorbital ecchymosis or stepoff, no evidence of entrapment ENT: Oropharynx clear, no lacerations, no hemotympanum, no raccoon eyes or lozada sign Cervical spine / Neck: No cervical spine bony tenderness, crepitance, or stepoffdeformity Trachea midline Lungs: Clear to auscultation, No asymmetric rise and No crepitus, no flail chest Cardiac: Regular rate and rhythm and No murmurs Abdomen: Soft, Nontender and No rebound Pelvis: Pelvis stable to compression : No evidence of genital injury Back: No midline bony tenderness to thoracic/lumbar/sacral spines Neuro: At baseline, intact strength and sensation in bilateral upper and lower extremities. 2+ patellar reflexes bilaterally. Extremities: NO gross Deformities Psych: Normal affect Nursing triage notes reviewed, Vital signs reviewed MEDICAL DECISION MAKING: Chief Complaint: Fall, head trauma External records reviewed: ED visit July 2023 for head injury Factors affecting care: Hyperlipidemia, type 2 diabetes prostate cancer Social determinants of health: Elderly History obtained from others: none Consults: none [facility] Narrative: The patient was hemodynamically stable, afebrile and nontoxic-appearing I considered the following differential diagnosis: ICH, cervical spine injury ALL IMAGES (IF OBTAINED) HAVE BEEN PERSONALLY REVIEWED AND INTERPRETED BY MYSELF. The scan of the head, neck showed no evidence of acute traumatic injury. Patient appropriate discharge home with concussion return precautions close wound care precautions. The patient and/or family, caregivers express understanding. The patient and/orfamily, caregivers agrees with the plan. Shared decision making: I will have a discussion with the patient and or visitors regarding risk/benefits of further testing or admission. They will be made aware of of the risk/benefits inherent in this decision they will be given the opportunity to voice understanding. Total critical care time today provided was at least 0 minutes. This excludes separately billable procedures. Critical care time (if documented) is secondary to the patient having high probability of clinically significant/life threatening deterioration in the patient's condition which required my urgent intervention. Impression: 1. Closed head injury 2. Concussion 3. Scalp abrasion Dispo: Discharge Radiography Diagnostic Testing: Clinical Impression(s) from Imaging Studies Brain CT 08/13/23 18:12 IMPRESSION: Atrophy and moderate periventricular white matter ischemic change. No acute intracranial hemorrhage Electronically Signed: Min Scott MD at 18:48 EST , Cervical Spine CT 08/13/23 18:12 IMPRESSION: Moderate spondylosis most severe at C5-C6 and C6-7. No acute fracture or subluxation. Electronically Signed: Min Scott MD at 18:50 EST , Discharge Plan Triage Chief Complaint: Head Injury ED Provider: Stone Hay Dx/Rx/DC Orders Instructions: ED Abrasion, ED Concussion Prescriptions: No Action pravastatin 20 mg tablet 20 mg PO DAILY metformin 500 MG tablet 500 mg PO DAILY finasteride 5 MG tablet 5 mg PO DAILY Tamsulosin Hcl 0.4 MG capsule 0.4 mg PO DAILY Primary Care Provider: Perfecto Warner Referrals: Perfecto Warner MD [Primary Care Provider] - Activity Restrictions/Additional Instructions: Thank you for trusting us with your care today! Please take Tylenol (2 pills, 650 mg), ibuprofen (2 pills, 400 mg) every 6 hoursas needed for pain and fever control. Please return to the emergency department if your symptoms change or worsen. Please follow with your primary care physician for further outpatient evaluationand management. Disposition Disposition: Home, Self Care What to do if you have Problems For any increased pain, shortness of breath, bleeding, nausea or vomiting, chestpain, or any unexpected problems, contact your Primary Care Provider. Call [facility] ([phone]) or report to the closest Emergency Room. Call 911 if necessary. 08/13/231918 <Electronically signed by Stone Hay DO> Cosigner Signature (if applicable): CC: Dr. Perfecto Warner MD ~ Signed [facility] Work Phone: 1(858) 216-675012-08-2023 Miscellaneous Notes* Telephone Encounter - Jude Garcia - 08/07/2023 7:39 AM EST Procedure(s) being scheduled: 1.Are you diabetic Yes. [...] No 9. Does this procedure require a sulky driver? Yes If yes, has patient been notified that a sulky driver is needed and must be present [...] days prior to their first dose of theCOVID vaccine. They should not receive any procedure containing steroids in the time frame between their 1st and 2nd doses of the COVID vaccine. They should not receive a procedure containing steroids 14 days after their 2nd dose of the COVID vaccine.) Jude Garcia documented in this encounterSelect [facility] [place]12-01-2023 Miscellaneous Notes* Telephone Encounter - Mikaela Mchugh Ma - 07/31/2023 9:15 AM EST Call to pt and notified him of results and recommendation below, verbalized understanding. Mikaela Mchugh Ma * Telephone Encounter - Mikaela Mchugh Ma - 07/31/2023 9:10 AM EST ----- Message from Yolande Warner MD sent at 07/30/2023 3:17 PM EST ----- Improving anemia. No changes to regimen. Will recheck at future OV. documented in this encounterSelect Medical Specialty [facility] [place]11-16-2023 History of Present illness Narrative* Lucinda Kohler - 07/16/2023 8:09 AM EST Last saw pcp: 05/08/23 Subjective: Patient presents [...] toes when tested with the 5.07 SWM bilateral.Vibratory sensation is decreased at the hallux IPJ [...] is to RTC in 3-4 months. Lucinda Kohler DPM * Evelina Carr LPN - 07/16/2023 8:05 AM EST AMB ROOMING INTAKE FLOWSHEET DATA Patient presents with: Left Foot - Established Patient, Diabetic Foot Care Right Foot - Established Patient, Diabetic Foot Care Evelina Carr LPN documented in this encounterSelect Medical Specialty [facility] [place]11-16-2023 Instructions* Patient Instructions* Lucinda Kohler - 07/16/2023 8:09 AM EST Diabetes Foot [...] it. Apply a bandage and wear a differentpair of shoes. Take Care of Your Toenails Cut toenails after bathing, when they are soft. Cut toenails straight across and smooth with a nail file. Avoid cutting into the corners of toes. Do not cut cuticles. If you have neuropathy (or decreased sensation in your feet) a energy director should always cut your toenails. Be Careful [...] make sure there are no foreign objects orrough areas. Avoid tight socks. Wear natural-fiber socks [...] Go to your health care provider or energy director to treat these conditions. documented in this encounterSelect Medical [facility] [place]11-09-2023 History of Present illness Narrative* Lindsay Carr MA - 07/09/2023 8:02 AM EST Review of Systems Constitutional: Positive for activity change. Negative for chills and fever. Genitourinary: Positive for difficulty urinating. Musculoskeletal: Positive for arthralgias, back pain and gait problem. Negative for joint swelling,myalgias, neck pain and neck stiffness. Neurological: Negative for weakness, numbness and headaches. Psychiatric/Behavioral: Negative for dysphoric mood, sleep disturbance and suicidal ideas. The patient is not nervous/anxious. * Bull Lam MD - 07/06/2023 9:34 AM EST Images from the original note were not included. [facility] Name: Tanisha Salter : 1940 Purpose: 3-month follow-up Today's Date:07/09/2023 Last Visit: 04/23/2023 (YOSHI MCFADDEN 06/05/2023) Chief complaint: low back pain (YOSHI MCFADDEN 06/05/2023) - Pain score 8/10. Patient is scheduled for Medial branch blocks bilateral L4-5,5-S1 x 2, RFA if positive x2 in [place] for his low back pain but before [...] or bladder control, unintentional weight loss, and fevers,chills, or night sweats. Medications Prescribed: Started or [...] is going to meet up with Dr. Warnerto discuss his CT Abdomen findings (obtained based upon actionable finding on the CT Lumbar). Appointment set for May. He had his first set of MBB's on 07/01/2023, the data was inconclusive. He had 100% relief of pain from hours 4-6 after the block, but was sitting during that time. From 90min - 3 hours post injectionpain was between 50-75% improved with activity. He [...] All prescriptions have been APPROPRIATELY filled. No suspiciousactivity was identified. on 07/09/2023 by Bull Lam [...] are 5 lumbar-type vertebrae. Anatomic variant: None. Inbound Customer Service Agent (topogram) images: No significant findings. Alignment: Grade 1 degenerative anterolisthesis of L2-L3. Alignment is otherwise anatomic. Bone marrow /fracture: Anterior flowing osteophytes from L1 extending superiorly out of the [id number], likely due to diffuse idiopathic skeletal hyperostosis. [...] disc bulge and facet arthropathy causing moderate tosevere canal narrowing and severe bilateral foraminal stenosis. [...] of the bilateral sacroiliac joints, likely degenerative. Thevisualized sacrum and iliac wings are within normal limits. IMPRESSION: No acute lumbar spine fracture or traumatic subluxation. Multilevel spondylosis as described, worstat L2-L3 with moderate to severe canal narrowing. Central linear area of the calcification in the abdominal aorta which may be due to areas of prominent atherosclerosis versus aneurysm formation, incompletely evaluated on this noncontrast exam. Consider correlation with CTA of the abdomen if clinically indicated. Anatomic Lumbar Variant: None. L4-5 is considered the level of the iliac crest and assume there are5 lumbar-type vertebrae. X-ray Lumbar 12/2022 RESULT: Straightening [...] disc space narrowing, greatest at C5-6 and C6- 7. There are no vertebral body compressiondeformities and alignment is well maintained. Bilateral obliques demonstrate severe foraminal narrowing at C4-5, C5-6 and C6-7 on the left and atC6-7 on the right. There is a moderate [...] (A) 74 - 99 mg/dL Final Comment: Location:[facility], [address] [place] [address], [address] The Accu-Chek Inform II glucose meter has [...] L4-5,5-S1 x 2, RFA if positive x2 (secondMB scheduled for 08/05 - He will need the 2nd set of blocks with more consistent activity during this critical window to confirm. We discussed today.) The risks, benefits, alternative treatment options and prognosis of the procedure were discussed and all of the patient's questions/concerns were addressed to the patient s satisfaction. Patient was advised that they will need a sulky driver for after the procedure and that if no sulky driver is available and on site at the time of the procedure, the procedure will be cancelled. For any anticoagulants, the patient was advised on whether to continue or hold for this procedure. The patient expressed understanding and gave verbal consent to proceed. Medication(s): Diclofenac PRN basis - hold for now Additional Studies: none Referrals: No additional considerations at present Functional Buddhism: No changes-continue current regimen Depending on response to the above plan, consider: Gabapentin, consider Epidural at different level(eg L4-5 vs L1-2). SCS not ideal given [...] medical decision making from today's date. Bull AVILAA Pain Management [facility] documented in this encounterSelect Medical Specialty [facility] [place]11-08-2023 History of Present illness Narrative* Jesse Avery MD - 07/08/2023 1:31 PM EST Patient presents with: Eye Problem: Right eye possible stye. X2days. HPI: Skin Lesion: Location: right lower eyelid Duration: irritated this week Pruritis/Pain: not tender Change: NO Drainage/blister/pustule/ulceration: small pimple on eyelid Treatment: none MEDICATIONS: [...] if not improving by next week. Jesse Avery MD documented in this encounterSelect Medical Specialty [facility] [place]10-06-2023 Instructions* Patient Instructions* Padma Lombardo PA-C - 06/05/2023 10:59 AM [...] blood thinners (this typically requires approval from theprescribing doctor) and non-steroidal anti-inflammatory medications (except Celebrex). By using X-ray guidance (fluoroscopy) we minimize the risk of injury to the structure along the course of the needle. The sensory and motor stimulation reduce the risk of injury to other nerves. Who should NOT have this injection? If you have an active infection, poorly controlled hypertension, diabetes, congestive heart failureor are unable to stop taking blood thinners, you may not be a candidate for these types of injections. documented in this encounterSelect Medical [facility]10-06-2023 History of Present illness Narrative* Padma Lombardo PA-C - 06/05/2023 10:28 AM EDT AMBULATORY TELEPHONE VISIT Tanisha Malcolm Joie 1940 has consented to this audio only telephone encounter. Persons Present: patient Chief Complaint/Reason: low back pain Interval History: Pain score 8/10. Patient is scheduled for Medial branch blocks bilateral L4-5,5-S1 x 2, RFA if positive x2 in [place] for his low back pain but before [...] or double vision) Respiratory: Negative (No Cough, [id number], Dyspnea on exertion, wheezing) Cardiovascular: Negative (No [...] appropriate that he ungergo an RFA for manager intermediate benefit of his pain. Follow-up: Keep scheduled [...] blood thinners (this typically requires approval from theprescribing doctor) and non-steroidal anti-inflammatory medications (except Celebrex). By using X-ray guidance (fluoroscopy) we minimize the risk of injury to the structure along the course of the needle. The sensory and motor stimulation reduce the risk of injury to other nerves. Who should NOT have this injection? If you have an active infection, poorly controlled hypertension, diabetes, congestive heart failureor are unable to stop taking blood thinners, you may not be a candidate for these types of injections. Padma LopezAllegiance Specialty Hospital Of Greenvilleclaude BELLE [facility] documented in this encounterSelect Medical Specialty [facility] [place]09-19-2023 Miscellaneous Notes* Telephone Encounter - Ml Mehta RN - 05/19/2023 1:58 PM EDT Phoned patient and given provider's message below with verbalized understanding. Patient agreeable. * Telephone Encounter - Yolande Warner MD - 05/18/2023 10:18 AM EDT Urine culture negative for infection. Other labs to work up anemia are normal. Recommend recheckingCBC in 2-3 months to monitor. Urine albumin level slightly high. Recommend he continue current regimen and work on DM control with diet. documented in this encounterSelect Medical Specialty [facility] [place]09-12-2023 Miscellaneous Notes* Telephone Encounter - Dai Romero Ma - 05/12/2023 3:26 PM EDT Pt notified. Dai Romero Ma * Telephone Encounter - Haydee Naylor APRN.CNP - 05/12/2023 3:20 PM EDT Urine culture did not show any infection. Stool was negative for blood and his other labs were normal. Haydee Naylor APRN.CARISSA * Telephone Encounter - Erika Rodriguez LPN - 05/12/2023 10:40 AM EDT Pt is asking for lab results from 05/08/23 & 05/09/23. Erika Rodriguez LPN documented in this encounterSelect Medical Specialty [facility] [place]09-08-2023 History of Present illness Narrative* Yolande Warner MD - 05/08/2023 10:56 AM EDT Chief Complaint Patient presents with: Follow Up: [...] Follows a diabetic diet most of the time.He is compliant with medication(s) and is tolerating med(s) without any side effects. He reports checking his glucose on a infrequent to not at all basis. Patient's last HgA1C was Hemoglobin A1C (%) Date Value 05/07/2023 6.5 10/23/2022 6.3 10/18/2021 6.3 04/17/2021 6.4 ) Last Ophthalmology exam was within the past 12 months Last Podiatry exam was within the past [address] Kohler Patient following up with Dr. Lam pain management for chronic lower back pain and lumbar spinal stenosis. ADRIANO injection in March did not help with pain. Planning on nerve block and has procedure scheduled for next month. Dr. Lundberg stopped his Flomax and Proscar and switched him to oxybutynin for overactive bladder. Only took it for 3-4 days and then stopped because he wanted to talk to us. Still complaining of urinary frequency without dysuria, hematuria, urgency, fever/chills, nasuea, vomiting, flank pain. Admitsto some lower abdominal pain. Did not check [...] antigen (PSA) Hyperlipidemia Prostate cancer (HCC) Dr. Lundberg [place] Spinal stenosis lumbar Testicular cancer (HCC) radiation- [...] Abs Lymph 1.00 - 4.00 k/uL 1.02 Brule% % 9.3 Abs Brule <0.87 k/uL 0.46 Eosin% % 2.0 Abs [...] HIGH-DOSE) Yolande Warner MD documented in this encounterSelect [facility] History of Present illness Narrative* Lucinda Kohler - 05/07/2023 8:42 AM EDT Last saw PCP: 11/07/22 Subjective: Patient presents [...] Objective: [facility] and PT pulses are palpable bilateral. CFT is less than 5 seconds bilateral. Skin temperature is warm to cool proximal to distal bilateral. There is no edema or varicosities noted. Neuro: Protective sensation is intact to the foot and toes when tested with the 5.07 SWM bilateral.Vibratory sensation is decreased at the hallux IPJ [...] on the continued importance of diabetic foot carealong with proper diet and keeping their blood sugar under control to prevent complications. Patient is to RTC in 3-4 months. Lucinda Kohler DPM * Evelina Carr LPN - 05/07/2023 8:11 AM EDT AMB ROOMING INTAKE FLOWSHEET DATA Patient presents with: Left Foot - Established Patient, Follow Up, Diabetic Foot Care Right Foot - Established Patient, Follow Up, Diabetic Foot Care Evelina Carr LPN documented in this encounterSelect Medical [facility]ty [facility]09-07-2023 Instructions* Patient Instructions* Lucinda Kohler - 05/07/2023 8:42 AM EDT Diabetes Foot [...] it. Apply a bandage and wear a differentpair of shoes. Take Care of Your Toenails Cut toenails after bathing, when they are soft. Cut toenails straight across and smooth with a nail file. Avoid cutting into the corners of toes. Do not cut cuticles. If you have neuropathy (or decreased sensation in your feet) a energy director should always cut your toenails. Be Careful [...] make sure there are no foreign objects orrough areas. Avoid tight socks. Wear natural-fiber socks [...] Go to your health care provider or energy director to treat these conditions. documented in this encounterSelect Medical [facility]ty [facility]08-24-2023 Miscellaneous Notes* Telephone Encounter - Jude Garcia - 04/23/2023 9:27 AM EDT Procedure(s) being scheduled: 1.Are you diabetic Yes. [...] No 9. Does this procedure require a sulky driver? Yes If yes, has patient been notified that a sulky driver is needed and must be present [...] days prior to their first dose of theCOVID vaccine. They should not receive any procedure containing steroids in the time frame between their 1st and 2nd doses of the COVID vaccine. They should not receive a procedure containing steroids 14 days after their 2nd dose of the COVID vaccine.) Jude Garcia documented in this encounterSelect Medical Specialty [facility]08-24-2023 Instructions* Patient Instructions* Bull Lam MD - 04/23/2023 9:19 AM [...] relief of low back documented in this encounterSelect Medical Specialty Hospital [facility]08-24-2023 History of Present illness Narrative* Gi Bee LPN - 04/23/2023 8:44 AM EDT Review of Systems Constitutional: Positive for activity change. Negative for chills, fever and unexpected weight change. Gastrointestinal: Negative for bowel retention or incontinence Genitourinary: Negative for difficulty urinating. Negative for bladder retention or incontinence Musculoskeletal: Positive for back pain and gait problem. Negative for arthralgias, joint swelling,myalgias, neck pain and neck stiffness. Neurological: Positive for weakness. Negative for numbness and headaches. Psychiatric/Behavioral: Negative for dysphoric mood, sleep disturbance and suicidal ideas. The patient is not nervous/anxious. * Bull Lam MD - 04/20/2023 8:33 AM EDT Images from the original note were not included. [facility] Name: Tanisha Salter : 1940 Purpose: 2-month follow-up Today's [...] or bladder control, unintentional weight loss, and fevers,chills, or night sweats. Medications Prescribed: Started or [...] All prescriptions have been APPROPRIATELY filled. No suspiciousactivity was identified. on 04/23/2023 by Bull Lam [...] are 5 lumbar-type vertebrae. Anatomic variant: None. Inbound Customer Service Agent (topogram) images: No significant findings. Alignment: Grade 1 degenerative anterolisthesis of L2-L3. Alignment is otherwise anatomic. Bone marrow /fracture: Anterior flowing osteophytes from L1 extending superiorly out of the bimyc-ro-btcj, likely due to diffuse idiopathic skeletal hyperostosis. [...] disc bulge and facet arthropathy causing moderate tosevere canal narrowing and severe bilateral foraminal stenosis. [...] of the bilateral sacroiliac joints, likely degenerative. Thevisualized sacrum and iliac wings are within normal limits. IMPRESSION: No acute lumbar spine fracture or traumatic subluxation. Multilevel spondylosis as described, worstat L2-L3 with moderate to severe canal narrowing. Central linear area of the calcification in the abdominal aorta which may be due to areas of prominent atherosclerosis versus aneurysm formation, incompletely evaluated on this noncontrast exam. Consider correlation with CTA of the abdomen if clinically indicated. Anatomic Lumbar Variant: None. L4-5 is considered the level of the iliac crest and assume there are5 lumbar-type vertebrae. X-ray Lumbar 12/2022 RESULT: Straightening [...] disc space narrowing, greatest at C5-6 and C6- 7. There are no vertebral body compressiondeformities and alignment is well maintained. Bilateral obliques demonstrate severe foraminal narrowing at C4-5, C5-6 and C6-7 on the left and atC6-7 on the right. There is a moderate [...] (A) 74 - 99 mg/dL Final Comment: Location:[facility], [address] [place] [address], [id number] The Accu-Chek Inform II glucose meter has [...] was advised that they will need a sulky driver for after the procedure and that if no sulky driver is available and on site at the time of the procedure, the procedure will be cancelled. For any anticoagulants, the patient was advised on whether to continue or hold for this procedure. The patient expressed understanding and gave verbal consent to proceed. Medication(s): Diclofenac PRN basis - hold for now Additional Studies: none Referrals: No additional considerations at present Functional Buddhism: No changes-continue current regimen Depending on response [...] MD Pain Management [facility] documented in this encounterSelect Medical Specialty [facility] [place]08-14-2023 Miscellaneous Notes* Telephone Encounter - Haydee Naylor APRN.CNP - 04/13/2023 11:43 AM EDT Patient is due for follow-up. Please assist in scheduling. Haydee Naylor APRN.CARISSA * Telephone Encounter - Judy Little LPN - 04/13/2023 11:35 AM EDT Patient phones requesting refills as follows: Requested Prescriptions Pending Prescriptions Disp Refills metFORMIN (GLUCOPHAGE) 1,000 mg tablet 45 tablet 1 Sig: Take 0.5 tablets by mouth once daily. RAFAEL 11/07/2022 NOV 05/11/2023 Please review and advise. Judy Little LPN documented in this encounterSelect Medical Specialty [facility]07-14-2023 History of Present illness Narrative* Reef Manju Hdz RT(R) - 03/13/2023 9:00 AM EDT Radiology Service Progress Note DATE OF SERVICE: [...] creatinine assay has traceable calibration to isotope dilution- mass spectrometry. Refer to KDIGO guidelines for clinical interpretation. In patients with unstable renal function, e.g. those with acute kidney injury, the eGFRmay not accurately reflect actual GFR. eGFR- Date [...] 2023 TIME: 4:23 PM documented in this encounterSelect Medical Specialty [facility]06-28-2023 Miscellaneous Notes* Telephone Encounter - Ayr Gupta MA - 02/25/2023 3:02 PM EDT Patient notified of results, verbalizes understanding of instructions. Ary Gupta MA * Telephone Encounter - Yolande Warner MD - 02/25/2023 2:[address] with contrast he will need to hold his metformin for 2 days after the imaging. Recommend pushing PO fluids to flush kidneys after the study. Avoid NSAIDs OTC. * Telephone Encounter - Ary Gupta MA - 02/25/2023 1:50 PM EDT Patient stops by office today. Scheduled for CT of AAA d/t original CT of of lumbar spine showing actionable finding: calcification in the abdominal aorta. Patient wanted PCP to be aware & was unsure if medications may need to be stopped prior to imaging d/t DM. Ary Gupta MA documented in this encounterSelect Medical Specialty [facility]06-28-2023 Miscellaneous Notes* Telephone Encounter - Sara Broussard - 02/25/2023 9:03 AM EDT Procedure(s) being scheduled: 1.Are you diabetic Yes. [...] No 9. Does this procedure require a sulky driver? Yes If yes, has patient been notified that a sulky driver is needed and must be present [...] days prior to their first dose of theCOVID vaccine. They should not receive any procedure containing steroids in the time frame between their 1st and 2nd doses of the COVID vaccine. They should not receive a procedure containing steroids 14 days after their 2nd dose of the COVID vaccine.) Sara Broussard documented in this encounterSelect Medical Specialty [facility]06-22-2023 Miscellaneous Notes* Telephone Encounter - Bull Lam MD - 02/19/2023 4:15 PM EDT I called Mr. Salter, informed him of the actionable finding on the CT. He is amenable to the CTA.I am ordering this. It is not a STAT order, but I suggested that it would be good to get this within the next month. We also discussed the stenosis and facet arthritis on CT. He is amenable to an epidural steroid injection. I will place an order for this as well. Bull Lam III, MD, NANCY documented in this encounterSelect Medical Specialty Hospital [facility]06-22-2023 History of Present illness Narrative* Manju Beavers RT(R) - 02/19/2023 11:40 AM EDT Radiology Service Progress Note PATIENT NAME: Tanisha Salter DATE OF SERVICE: February 19, 2023 TIME: 3:11 PM PATIENT IDENTITY VERIFICATION COMPLETED USING TWO (2) IDENTIFIERS: Name and Date of confirmedby patient verbally. FALL SCREENING: Has the patient [...] 19, 2023 3:11 PM documented in this encounterSelect Medical Specialty [facility] [place]05-10-2023 History of Present illness Narrative* Lucinda Kohler - 01/07/2023 8:07 AM EDT Last saw Dr. Warner; 11/07/22 Subjective: Patient [...] Objective: Patient presents to clinic ambulating [facility] Vasc: DP and PT pulses are palpable bilateral. CFT is less than 5 seconds bilateral. Skin temperature is warm to cool proximal to distal bilateral. There is no edema or varicosities noted. Neuro: Protective sensation is intact to the foot and toes when tested with the 5.07 SWM bilateral.Vibratory sensation is decreased at the hallux IPJ [...] Small bleed to left hallux and right 4thtoe. Discussed wound of left 5th toe. It [...] diabetic foot care along with proper diet andkeeping their blood sugar under control to prevent complications. Patient is to RTC in 3-4 months. Lucinda Kohler DPM * La Forerster RN - 01/07/2023 8:01 AM EDT Patient presents with: Left Foot - Established [...] to Left 5th toe. documented in this encounterSelect Medical Specialty [facility]05-10-2023 Instructions* Patient Instructions* Lucinda Kohler - 01/07/2023 8:07 AM EDT Diabetes Foot [...] it. Apply a bandage and wear a differentpair of shoes. Take Care of Your Toenails Cut toenails after bathing, when they are soft. Cut toenails straight across and smooth with a nail file. Avoid cutting into the corners of toes. Do not cut cuticles. If you have neuropathy (or decreased sensation in your feet) a energy director should always cut your toenails. Be Careful [...] make sure there are no foreign objects orrough areas. Avoid tight socks. Wear natural-fiber socks [...] Go to your health care provider or energy director to treat these conditions. documented in this encounterSelect Medical [facility]ty [facility]04-18-2023 History of Present illness Narrative* Monet Proctor APRN.PUBLIC HEALTH PROGRAM MANAGER - 12/16/2022 12:44 PM EDT Images from the original note were not [...] a history of T2DM and sees Dr. Kohler for foot care. Review of Systems Constitutional: Negative for chills and fever. Musculoskeletal: Negative for falls and joint pain. See HPI Skin: Negative for itching and rash. BP 128/80 Pulse 78 Temp 36.1 C (96.9 F) Resp 16 Wt 90.7 kg (200 lb) SpO2 100% BMI 27.12kg/m PAST MEDICAL HISTORY Diagnosis Date BPH (benign prostatic hyperplasia) Diabetes mellitus, type 2 (HCC) Elevated prostate specific antigen (PSA) Hyperlipidemia Prostate cancer (HCC) Dr. Lundberg [place] Spinal stenosis lumbar Testicular cancer (HCC) radiation- [...] Discussed expected course of illness Monet Proctor APRN.PUBLIC HEALTH PROGRAM MANAGER documented in this encounterSelect Medical Specialty Hospital [facility] [place]04-18-2023 Instructions* Patient Instructions* Monet Proctor APRN.CNP - 12/16/2022 12:38 PM [...] of the skin. The infection is usually causedby bacteria that normally live on the skin, such as staphylococci (Staph) or streptococci (Strep). The infection develops when there is a [...] types of skin infections include abscesses, furuncles (boils), andcarbuncles. These usually cause a collection of pus [...] as treatment of any underlying condition that ledto the skin infection. Elevate the area -- [...] be hospitalized and treated with antibiotics given intoa vein (IV). It is important to take [...] from an episode of cellulitis without any complications.If you have skin infection risk factors talk to your healthcare provider to determine if there are steps you can take to minimize the risk of infections in the future. documented in this encounterSelect Medical Specialty [facility]03-10-2023 History of Present illness Narrative* Yolande Warner MD - 11/07/2022 7:57 AM EST Chief Complaint Patient presents with: Back Pain: Spinal stenosis HPI Tansiha Salter is a 82 year old male [...] antigen (PSA) Hyperlipidemia Prostate cancer (HCC) Dr. Lundberg [place] Spinal stenosis lumbar Testicular cancer (HCC) radiation- [...] and extension, good range of motion, no muscletenderness, reflexes are 2+ and symmetric, motor and [...] MGT Yolande Warner MD documented in this encounterSelect Medical Specialty [facility] [place]02-24-2023 History of Present illness Narrative* Yolande Warner MD - 10/24/2022 8:35 AM EST Chief Complaint Patient presents with: Follow Up: 6 month- patient reports pain that radiates down back into legs that's been going on foryears. HPI Tanisha Salter is a 82 year old male who presents here today for 6 month follow up. DIABETES MELLITUS: Mr. Salter was last seen 6 months ago. Since our last visit he denies excessive thirst or increased frequency of urination, numbness, tingling or pain in extremities, new or unusual visual symptoms, and low sugar/hypoglycemic reactions. Follows a diabetic diet some of the time.He is compliant with medication(s) and is tolerating [...] Last OV 10 days ago. Completed radiation therapy.No longer on Eligard. Urinary obstruction resolved. Urinating 15 times per day but is doing well onFlomax and Proscar. Recommending f/u and PSA in 3 months. PSA on 08/2022 <0.01. History of spinal stenosis and states that he is still having trouble with lower back pain, walkinglong distances, standing over the sink. Similar symptoms [...] arise. - Discussed diabetic education issues of group home diabetic complications, hypoglycemic symptoms, hyperglycemic symptoms, diet, medications- side effects and need for compliance, importance of exercise, and importance of appointments with Technical Laboratory Asst with patient. - METFORMIN 1,000 MG TABLET [...] symptoms today such as loss of bowel/bladder controland saddle anesthesia. F/u in a couple weeks to discuss further. - PARKING FOR HANDICAPPED 7. Chronic low back pain without sciatica, unspecified back pain laterality - ICD9: 724.2, 338.29, ICD10: M54.50, G89.29 See above. Recommend OTC analgesics, ice/heat for pain. Yolande Warner MD documented in this encounterSelect Medical Specialty [facility]02-20-2023 Miscellaneous Notes* Telephone Encounter - Erika Hernandez LPN - 10/20/2022 2:53 PM EST Patient phones requesting refills as follows: Requested Prescriptions Pending Prescriptions Disp Refills finasteride (PROSCAR) 5 mg tablet 90 tablet 3 Sig: Take 1 tablet by mouth once daily. RAFAEL 07/10/22 NOV 10/24/22 Please review and advise. Erika Hernandez LPN documented in this encounterSelect Medical Specialty [facility]02-08-2023 Instructions* Patient Instructions* Lucinda Kohler - 10/08/2022 8:10 AM EST Diabetes Foot [...] it. Apply a bandage and wear a differentpair of shoes. Take Care of Your Toenails Cut toenails after bathing, when they are soft. Cut toenails straight across and smooth with a nail file. Avoid cutting into the corners of toes. Do not cut cuticles. If you have neuropathy (or decreased sensation in your feet) a energy director should always cut your toenails. Be Careful [...] make sure there are no foreign objects orrough areas. Avoid tight socks. Wear natural-fiber socks [...] Go to your health care provider or energy director to treat these conditions. documented in this encounterSelect Medical [facility]ty [facility]02-08-2023 History of Present illness Narrative* Lucinda Kohlre - 10/08/2022 8:09 AM EST Last saw Dr. Warner: 07/10/22 Subjective: Patient [...] is to RTC in 3-4 months. Lucinda Kohler DPM documented in this encounterSelect Medical Specialty [facility]02-06-2023 Miscellaneous Notes* Telephone Encounter - Judy Little LPN - 10/06/2022 4:09 PM EST Patient notified. Judy Little LPN * Telephone Encounter - Haydee Naylor APRN.CNP - 10/06/2022 12:11 PM EST Lab orders placed. I do not think we need to order another PSA at this time. Haydee Naylor APRN.CARISSA * Telephone Encounter - Judy Little LPN - 10/06/2022 12:03 PM EST Patient stopped into office this day. Asking if provider could place lab orders so he could have them done prior to appointment coming up on 10/24/2022. States he isn't sure if you wanted to run a PSAtoo since he did just have one done in [facility]. Lab is in scanned docs. Please advise. Judy Little LPN documented in this encounterSelect Medical Specialty [facility]11-11-2022 History of Present illness Narrative* Benny Sánchez PA-C - 07/11/2022 3:20 PM EST CC Zavala in Place HPI: Tanisha Salter is a [...] and RTC in 1 month for a zavala exchange and TOV > Teach Self-Catheterization to patient if he is interested LIZET Veloz, [place], YOSHI documented in this encounterSelect Medical Specialty [facility]11-10-2022 History of Present illness Narrative* Yolande Warner MD - 07/10/2022 2:22 PM EST Chief Complaint Patient presents with: Urinary Retention: Ongoing issues with urination and issues with catheter causing pain. HPI Tanisha Salter is a 82 year old male who presents here today for Above Complaints. Patient following up with Dr. Lundberg for history of prostate cancer on Eligard and BPH s/p turp. Onflomax and Proscar as prescribed. States that while he was receiving radiation for his prostate cancer back in mid May had urinary obstruction requiring catheterization. TURP completed in May. States that he continues to have urinary obstruction whenever they take out the catheter. Last replaced on 07/03 at [facility] and states that his new catheter is [...] antigen (PSA) Hyperlipidemia Prostate cancer (HCC) Dr. Lundberg, [place] Spinal stenosis lumbar Testicular cancer (HCC) radiation- [...] Clear Yolande Warner MD documented in this encounterSelect Medical Specialty [facility]11-10-2022 Miscellaneous Notes* Telephone Encounter - Yolande Warner MD - 07/10/2022 1:10 PM EST Reviewed. * Telephone Encounter - Erika Hernandez LPN - 07/10/2022 12:22 PM EST Phoned patient back as had received message wanted this nurse to call him back. Patient stated he has had numerous issues since going to Urology and wondering about second opinion. He stated he wouldlike to see about face to face with provider. He asked I discuss his concerns with provider then call him back to schedule appt. Agreed to call patient back this afternoon after speaking with provider when he comes into office. * Telephone Encounter - Erika Hernandez LPN - 07/10/2022 11:49 AM EST Left patient a message to schedule appt 1-2 weeks following his urology appt. Left number for him to call to schedule. documented in this encounterSelect Medical Specialty [facility]11-03-2022 History of Present illness Narrative* Lucinda Kohler - 07/03/2022 8:12 AM EDT Last saw Dr. Warner: 04/23/22 Subjective: Patient [...] toes when tested with the 5.07 SWM bilateral.Vibratory sensation is absent at the hallux IPJ [...] diabetic foot care along with proper diet andkeeping their blood sugar under control to prevent complications. Patient is to RTC in 3-4 months. Lucinda Kohler DPM * La Forrester RN - 07/03/2022 8:05 AM EDT Patient presents with: Left Foot - Established Patient, Follow Up, nail care Right Foot - Established Patient, Follow Up, nail care documented in this encounterSelect Medical Specialty [facility]11-03-2022 Instructions* Patient Instructions* Lucinda Kohler - 07/03/2022 8:11 AM EDT Diabetes Foot [...] it. Apply a bandage and wear a differentpair of shoes. Take Care of Your Toenails Cut toenails after bathing, when they are soft. Cut toenails straight across and smooth with a nail file. Avoid cutting into the corners of toes. Do not cut cuticles. If you have neuropathy (or decreased sensation in your feet) a energy director should always cut your toenails. Be Careful [...] make sure there are no foreign objects orrough areas. Avoid tight socks. Wear natural-fiber socks [...] Go to your health care provider or energy director to treat these conditions. documented in this encounterSelect Medical [facility]08-24-2022 History of Present illness Narrative* Yolande Warner MD - 04/23/2022 8:48 AM EDT Chief Complaint Patient presents with: F/U 6 [...] 12 months Patient following up with Dr. Lundberg for elevated PSA and likely prostate cancer. Had biopsy earlier this month which was positive for cancer. Reports MRI showed cancer with spread to single lymph node. Referred to Dr. Valdes for radiation oncology and will do radiation daily for 5 1/2 weeks. States they are not going to remove prostate or treat with chemo. Urinary symptoms have not changed withweak stream, straining, nocutria 3-4 times per night. [...] today. Does have tender nodule on tendon ofleft 5th finger. . Health Maintenance List ADVANCE [...] arise. - Discussed diabetic education issues of manager intermediate diabetic complications, hypoglycemic symptoms, hyperglycemic symptoms, diet, [...] worsening. Yolande Warner MD documented in this encounterSelect Medical Specialty [facility]08-23-2022 Miscellaneous Notes* Telephone Encounter - Yolande Warner MD - 04/22/2022 9:35 AM EDT Ordered. * Telephone Encounter - La Pedro RN - 04/22/2022 9:31 AM EDT Called the lab they said as long as provider puts in the non-fasting lipid panel they will cancel the other order and credit the blood to the new one. * Telephone Encounter - Yolande Warner MD - 04/22/2022 9:18 AM EDT Lipid panel already drawn before I could order the non fasting. * Telephone Encounter - Erika Hernandez LPN - 04/22/2022 8:48 AM EDT Phoned patient and updated him with providers message. Patient asking if he can come in and have labs drawn this am since he ate. Provider stated he will have lipid panel changed to non-fasting. Patient will be in to have labs drawn. * Telephone Encounter - Yolande Warner MD - 04/22/2022 8:11 AM EDT Labs ordered to be drawn today. Can reschedule OV for or Thursday if he would like. * Telephone Encounter - Apolonia Barnes LPN - 04/22/2022 8:05 AM EDT Patient calling said he does labs every 6 months and [facility] Patient is asking if he should cancel and reschedule his appt? Pending orders if wanted needs diagnosis. Please advise * Telephone Encounter - Erika Jones - 04/22/2022 6:49 AM EDT Patient came in requesting labs ha appointment on 04/23 Thank you Erika Jones documented in this encounter[facility] History of Present illness Narrative* Kamlesh Alvarado APRN.CARISSA - 03/26/2022 11:37 AM EDT Images from the original note were not included. Subjective HPI HPI Tanisha Salter is a 81 year old male who presents today for CC of right little finger pain.This started few months ago. Has tried otc [...] : NELL HERNANDEZ DO Agrees to plan Kamlesh Alvarado APRN.CNP documented in this encounterSelect [facility]-26-[facility] History of Present illness Narrative* Benny Sánchez PA-C - 12/24/2021 8:58 AM EDT Images from the original note were not included. [facility] [place] Some elements copied from my previous note, [...] been while on Proscar 5 mg so currentPSA is roughly 22 There is no obvious [...] to have the biopsy done with Dr. Lundberg so at this time There is no planned procedure or appointments with [facility]. 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 The patient is here now for an appointment with Benny E. Sánchez, MPAS, MT, PA-COV. Procedure: Explained procedure to patient and verbalizes understanding. Performed a PVR. Patient urinated and instructed to empty bladder as much as possible just prior to having PVR done using bladder ultrasound scanner. Results of scan: 39 mL The patient tolerated the procedure well. Plan: Appointment with Benny. documented in this encounterSelect [facility] [place]04-18-2022 Miscellaneous Notes* Telephone Encounter - Vicki Ambrose RN - 12/16/2021 2:39 PM EDT Kellie with [facility] calls to request more information for urology referral be faxed to office (only received demographic sheet previously). Faxed demographics, referral, labs, office note, and medication list to [phone] per request. Vicki Ambrose RN documented in this encounterSelect [facility] [place]04-13-2022 Miscellaneous Notes* Telephone Encounter - Judy Little LPN - 12/11/2021 5:10 PM EDT Patient telephoned. Made aware consult has been faxed to Dr. Briggs office. Judy Little LPN * Telephone Encounter - Haydee Naylor APRN.CNP - 12/11/2021 1:[address] Please fax as requested and let patient know when faxed. Thanks, Haydee Naylor APRN.CNP * Telephone Encounter - Judy Little LPN - 12/11/2021 10:57 AM EDT Patient in this day. Requesting to be seen by a different urologist then previously seen. Requesting we fax paperwork and consult over to Dr. Pacheco (Urology) office so they can take over his urology care at this time. Patient provided this nurse with a fax number for Dr. Briggs office . Judy Little LPN documented in this encounterSelect [facility] [place]04-13-2022 History of Present illness Narrative* Lucinda Kohler - 12/11/2021 8:04 AM EDT Last saw Haydee Podlogar 11/27/21 Subjective: Patient presents to clinic c/o [...] toes when tested with the 5.07 SWM bilateral.Vibratory sensation is decreased at the hallux IPJ [...] is to RTC in 3-4 months. Lucinda Kohler DPM documented in this encounterSelect Medical [facility] [place]04-13-2022 Instructions* Patient Instructions* Lucinda Jose F - 12/11/2021 8:00 AM EDT Diabetes Foot [...] it. Apply a bandage and wear a differentpair of shoes. Take Care of Your Toenails Cut toenails after bathing, when they are soft. Cut toenails straight across and smooth with a nail file. Avoid cutting into the corners of toes. Do not cut cuticles. If you have neuropathy (or decreased sensation in your feet) a energy director should always cut your toenails. Be Careful [...] make sure there are no foreign objects orrough areas. Avoid tight socks. Wear natural-fiber socks [...] Go to your health care provider or energy director to treat these conditions. documented in this encounterSelect [facility] [place]03-30-2022 Miscellaneous Notes* Telephone Encounter - Judy Little LPN - 11/27/2021 4:18 PM EDT Paperwork faxed to Dr. Barlow office at this time. Judy Little LPN * Telephone Encounter - Haydee Naylor APRN.CNP - 11/27/2021 10:20 AM EDT Please fax consult, urology's office note, labs and urine testing to Dr. Arciniega at [facility]- all of this is in my outbox. Haydee Naylor APRN.CARISSA * Telephone Encounter - Manju Talbot LPN - 11/25/2021 4:56 PM EDT Phoned patient and discussed prostate biopsy. Patient states he wants to wait a few days and think about his decision and he will call us back to let us know by the end of the week of his decision. Manju Talbot LPN * Telephone Encounter - Benny Sánchez PA-C - 11/25/2021 4:24 PM EDT As we discussed in the past visitis if the PSA went up after waiting a few months to repeat it, then I recommend a prostate biopsy , there is a concern for prostate cancer, but needs a biopsy to determine that. However, being 81 yo , he may elect to ot have biopsy , that is his decision. It will be a [facility] if he would like it done. Let me know I ill arrange for it when he wants it. Benny Sánchez, LIZET, MT, YOSHI\ * Telephone Encounter - Manju Talbot LPN - 11/25/2021 2:57 PM EDT Patient stopped by and left a message [...] advise. Manju Talbot LPN documented in this encounterSelect Medical [facility] [place]03-30-2022 History of Present illness Narrative* Haydee Naylor, MARIBETH.PUBLIC HEALTH PROGRAM MANAGER - 11/27/2021 9:43 AM EDT 11/27/2021 Patient presents with: Abdominal Pain SUBJECTIVE: [...] urinary frequency. Denies fevers, chills, nausea, vomiting, co nstipation, diarrhea, hematochezia, melana, dysuria or hematuria. PAST [...] [facility] Elevated PSA - ICD9: 790.93, ICD10: R97.20 - CONSULT TO UROLOGY Haydee Naylor APRN.CARISSA Prescription instructions reviewed with patient as applicable. Patient advised if symptoms do not improve or if symptoms worsen sooner, to contact their primary care physician. Potential red flag symptoms discussed with the patient. Reviewed appropriate action plan to take if red flag symptoms occur. Patient agreeable to treatment plan. documented in this encounterSelect [facility] [place]02-22-2022 History of Past illness Narrative* Problem Noted Date Resolved Date Acute back pain with sciatica, right 10/22/2021 06/04/2022 Testicular cancer 08/17/2018 Overview: radiation- 1980s documented as of this encounter (statuses as of 07/03/2022) [address]22-2022 History of Past illness Narrative* Problem Noted Date Resolved Date Acute back pain with sciatica, right 10/22/2021 06/04/2022 Testicular cancer 08/17/2018 Overview: radiation- 1980s documented as of this encounter (statuses as of 07/11/2022) [facility] History of Past illness Narrative* Problem Noted Date Resolved Date Acute back pain with sciatica, right 10/22/2021 06/04/2022 Testicular cancer 08/17/2018 Overview: radiation- 1980s documented as of this encounter (statuses as of 07/12/2022) [place] [address]-22-2022 History of Past illness Narrative* Problem Noted Date Resolved Date Acute back pain with sciatica, right 10/22/2021 06/04/2022 Testicular cancer 08/17/2018 Overview: radiation- 1980s documented as of this encounter (statuses as of 07/29/2022) [address]22-2022 History of Past illness Narrative* Problem Noted Date Resolved Date Acute back pain with sciatica, right 10/22/2021 06/04/2022 Testicular cancer 08/17/2018 Overview: radiation- 1980s documented as of this encounter (statuses as of 10/07/2022) [facility] of Past illness Narrative* Problem Noted Date Resolved Date Acute back pain with sciatica, right 10/22/2021 06/04/2022 Testicular cancer 08/17/2018 Overview: radiation- 1980s documented as of this encounter (statuses as of 10/08/2022) [facility] of Past illness Narrative* Problem Noted Date Resolved Date Acute back pain with sciatica, right 10/22/2021 06/04/2022 Testicular cancer 08/17/2018 Overview: radiation- 1980s documented as of this encounter (statuses as of 10/20/2022) [facility] of Past illness Narrative* Problem Noted Date Resolved Date Acute back pain with sciatica, right 10/22/2021 06/04/2022 Testicular cancer 08/17/2018 Overview: radiation- 1980s documented as of this encounter (statuses as of 10/24/2022) [facility] of Past illness Narrative* Problem Noted Date Resolved Date Acute back pain with sciatica, right 10/22/2021 06/04/2022 Testicular cancer 08/17/2018 Overview: radiation- 1980s documented as of this encounter (statuses as of 10/25/2022) [facility] of Past illness Narrative* Problem Noted Date Resolved Date Acute back pain with sciatica, right 10/22/2021 06/04/2022 Testicular cancer 08/17/2018 Overview: radiation- 1980s documented as of this encounter (statuses as of 11/07/2022) [facility] of Past illness Narrative* Problem Noted Date Resolved Date Acute back pain with sciatica, right 10/22/2021 06/04/2022 Testicular cancer 08/17/2018 Overview: radiation- 1980s documented as of this encounter (statuses as of 12/16/2022) [facility] of Past illness Narrative* Problem Noted Date Resolved Date Acute back pain with sciatica, right 10/22/2021 06/04/2022 Testicular cancer 08/17/2018 Overview: radiation- 1980s documented as of this encounter (statuses as of 01/07/2023) [facility] of Past illness Narrative* Problem Noted Date Resolved Date Acute back pain with sciatica, right 10/22/2021 06/04/2022 Testicular cancer 08/17/2018 Overview: radiation- 1980s documented as of this encounter (statuses as of 02/20/2023) [facility] of [facility] illness Narrative* Problem Noted Date Resolved Date Acute back pain with sciatica, right 10/22/2021 06/04/2022 Testicular cancer 08/17/2018 Overview: radiation- 1980s documented as of this encounter (statuses as of 02/25/2023) [facility] of Past illness Narrative* Problem Noted Date Resolved Date Acute back pain with sciatica, right 10/22/2021 06/04/2022 Testicular cancer 08/17/2018 Overview: radiation- 1980s documented as of this encounter (statuses as of 02/26/2023) [address]22-[address]22 History of Past illness Narrative* Problem Noted Date Diagnosed Date Resolved Date Acute back pain with sciatica, right 10/22/2021 06/04/2022 Testicular cancer 08/17/2018 Overview: radiation- 1980s documented as of this encounter (statuses as of 04/13/2023) [address]22-2022 History of Past illness Narrative* Problem Noted Date Diagnosed Date Resolved Date Acute back pain with sciatica, right 10/22/2021 06/04/2022 Testicular cancer 08/17/2018 Overview: radiation- 1980s documented as of this encounter (statuses as of 04/23/2023) [facility] of [facility] illness Narrative* Problem Noted Date Diagnosed Date Resolved Date Acute back pain with sciatica, right 10/22/2021 06/04/2022 Testicular cancer 08/17/2018 Overview: radiation- 1980s documented as of this encounter (statuses as of 04/23/2023) [facility] of [facility] illness Narrative* Problem Noted Date Diagnosed Date Resolved Date Acute back pain with sciatica, right 10/22/2021 06/04/2022 Testicular cancer 08/17/2018 Overview: radiation- 1980s documented as of this encounter (statuses as of 05/07/2023) [address]22-[address]22 History of Past illness Narrative* Problem Noted Date Diagnosed Date Resolved Date Acute back pain with sciatica, right 10/22/2021 06/04/2022 Testicular cancer 08/17/2018 Overview: radiation- 1980s documented as of this encounter (statuses as of 05/09/2023) [facility] of [facility] Narrative* Problem Noted Date Diagnosed Date Resolved Date Acute back pain with sciatica, right 10/22/2021 06/04/2022 Testicular cancer 08/17/2018 Overview: radiation- 1980s documented as of this encounter (statuses as of 05/13/2023) [facility] of [facility] Narrative* Problem Noted Date Diagnosed Date Resolved Date Acute back pain with sciatica, right 10/22/2021 06/04/2022 Testicular cancer 08/17/2018 Overview: radiation- 1980s documented as of this encounter (statuses as of 05/19/2023) [facility] of [facility] Narrative* Problem Noted Date Diagnosed Date Resolved Date Acute back pain with sciatica, right 10/22/2021 06/04/2022 Testicular cancer 08/17/2018 Overview: radiation- 1980s documented as of this encounter (statuses as of 06/06/2023) [address]22-2022 History of Past illness Narrative* Problem Noted Date Diagnosed Date Resolved Date Acute back pain with sciatica, right 10/22/2021 06/04/2022 Testicular cancer 08/17/2018 Overview: radiation- 1980s documented as of this encounter (statuses as of 07/06/2023) [address]22-[address]22 History of Past illness Narrative* Problem Noted Date Diagnosed Date Resolved Date Acute back pain with sciatica, right 10/22/2021 06/04/2022 Testicular cancer 08/17/2018 Overview: radiation- 1980s documented as of this encounter (statuses as of 07/06/2023) [address]22-[address]22 History of Past illness Narrative* Problem Noted Date Diagnosed Date Resolved Date Acute back pain with sciatica, right 10/22/2021 06/04/2022 Testicular cancer 08/17/2018 Overview: radiation- 1980s documented as of this encounter (statuses as of 07/09/2023) [address]22-[address]22 History of Past illness Narrative* Problem Noted Date Diagnosed Date Resolved Date Acute back pain with sciatica, right 10/22/2021 06/04/2022 Testicular cancer 08/17/2018 Overview: radiation- 1980s documented as of this encounter (statuses as of 07/09/2023) [address]22-[address]22 History of Past illness Narrative* Problem Noted Date Diagnosed Date Resolved Date Acute back pain with sciatica, right 10/22/2021 06/04/2022 Testicular cancer 08/17/2018 Overview: radiation- 1980s documented as of this encounter (statuses as of 07/16/2023) [address]22-[address]22 History of Past illness Narrative* Problem Noted Date Diagnosed Date Resolved Date Acute back pain with sciatica, right 10/22/2021 06/04/2022 Testicular cancer 08/17/2018 Overview: radiation- 1980s documented as of this encounter (statuses as of 07/31/2023) [address]22-[address]22 History of Past illness Narrative* Problem Noted Date Diagnosed Date Resolved Date Acute back pain with sciatica, right 10/22/2021 06/04/2022 Testicular cancer 08/17/2018 Overview: radiation- 1980s documented as of this encounter (statuses as of 08/07/2023) [address]22-2022 History of Past illness Narrative* Problem Noted Date Diagnosed Date Resolved Date Acute back pain with sciatica, right 10/22/2021 06/04/2022 Testicular cancer 08/17/2018 Overview: radiation- 1980s documented as of this encounter (statuses as of 08/11/2023) [address]22-2022 History of Past illness Narrative* Problem Noted Date Diagnosed Date Resolved Date Acute back pain with sciatica, right 10/22/2021 06/04/2022 Testicular cancer 08/17/2018 Overview: radiation- 1980s documented as of this encounter (statuses as of 10/12/2023) [address]22-2022 History of Past illness Narrative* Problem Noted Date Diagnosed Date Resolved Date Acute back pain with sciatica, right 10/22/2021 06/04/2022 Testicular cancer 08/17/2018 Overview: radiation- 1980s documented as of this encounter (statuses as of 11/05/2023) [address]22-[address]22 History of Past illness Narrative* Problem Noted Date Diagnosed Date Resolved Date Acute back pain with sciatica, right 10/22/2021 06/04/2022 Testicular cancer 08/17/2018 Overview: radiation- 1980s documented as of this encounter (statuses as of 11/05/2023) [address]22[address]22 History of Past illness Narrative* Problem Noted Date Diagnosed Date Resolved Date Acute back pain with sciatica, right 10/22/2021 06/04/2022 Testicular cancer 08/17/2018 Overview: radiation- 1980s documented as of this encounter (statuses as of 11/07/2023) [facility] Narrative* Problem Noted Date Diagnosed Date Resolved Date Acute back pain with sciatica, right 10/22/2021 06/04/2022 Testicular cancer 08/17/2018 Overview: radiation- 1980s documented as of this encounter (statuses as of 11/09/2023) [facility] of [facility] illness Narrative* Problem Noted Date Diagnosed Date Resolved Date Acute back pain with sciatica, right 10/22/2021 06/04/2022 Testicular cancer 08/17/2018 Overview: radiation- 1980s documented as of this encounter (statuses as of 11/19/2023) [facility] of [facility] Narrative* Problem Noted Date Resolved Date Testicular cancer 08/17/2018 Overview: radiation- 1980s documented as of this encounter (statuses as of 11/27/2021) [facility] Narrative* Problem Noted Date Resolved Date Testicular cancer 08/17/2018 Overview: radiation- 1980s documented as of this encounter (statuses as of 12/04/2021) [facility] Narrative* Problem Noted Date Resolved Date Testicular cancer 08/17/2018 Overview: radiation- 1980s documented as of this encounter (statuses as of 12/11/2021) [facility] Narrative* Problem Noted Date Resolved Date Testicular cancer 08/17/2018 Overview: radiation- 1980s documented as of this encounter (statuses as of 12/13/2021) [facility] Narrative* Problem Noted Date Resolved Date Testicular cancer 08/17/2018 Overview: radiation- 1980s documented as of this encounter (statuses as of 12/16/2021) [facility] Narrative* Problem Noted Date Resolved Date Testicular cancer 08/17/2018 Overview: radiation- 1980s documented as of this encounter (statuses as of 12/24/2021) [facility] Narrative* Problem Noted Date Resolved Date Testicular cancer 08/17/2018 Overview: radiation- 1980s documented as of this encounter (statuses as of 03/26/2022) [facility] Narrative* Problem Noted Date Resolved Date Testicular cancer 08/17/2018 Overview: radiation- 1980s documented as of this encounter (statuses as of 04/22/2022) [facility] Narrative* Problem Noted Date Resolved Date Testicular cancer 08/17/2018 Overview: radiation- 1980s documented as of this encounter (statuses as of 04/23/2022) [facility] [place] [facility]* Diagnosis Bladder pain- Primary Other symptoms involving urinary system Elevated PSA Elevated prostate specific antigen (PSA) documented [facility] this encounter [facility]* Diagnosis Elevated PSA- Primary Elevated prostate specific antigen (PSA) [facility]* Diagnosis Onychomycosis- Primary Dermatophytosis of nail Pain in toe of left foot Pain in limb Pain in toe of right foot Pain in limb Diabetic polyneuropathy associated with type 2 diabetes mellitus (HCC) documented [facility] this encounter [facility] [place] [facility]* Diagnosis Bladder pain- Primary Other symptoms involving urinary system Benign prostatic hyperplasia with nocturia documented [facility] this encounter [facility] [place] [facility]* Diagnosis Elevated PSA- Primary Elevated prostate specific antigen (PSA) Benign prostatic hyperplasia with nocturia documented in this encounter [facility] noteNo assessment information availableWGreene [facility] Work Phone: Evaluation note* Diagnosis Onset Date Resolution Status [id number] [facility] Work Phone: Evaluation note* Diagnosis Finger pain, right- Primary Pain in limb documented in this encounter [facility] [place] [facility]* Diagnosis Type 2 diabetes mellitus without complication, without long-term current use of insulin (HCC)- Primary [facility]* Diagnosis Type 2 diabetes mellitus without complication, without long-term current use of insulin (HCC)- Primary Hyperlipidemia, unspecified hyperlipidemia type Benign prostatic hyperplasia with nocturia Prostate cancer (HCC) Malignant neoplasm of prostate Elevated PSA Elevated prostate specific antigen (PSA) Trigger little finger of right hand Trigger finger (acquired) documented in this encounter [facility] [place] [facility]* Diagnosis Onset Date Resolution Status [id number] acute Prostate cancer metastatic to intrapelvic lymph node [facility] Work Phone: Evaluation note* Diagnosis Onset Date Resolution Status [id number] acute 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 [facility] Work Phone: Evaluation note* Diagnosis Onset Date Resolution Status 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 [facility] Work Phone: Evaluation note* Diagnosis Onychomycosis- Primary Dermatophytosis of nail Pain in toe of left foot Pain in limb Pain in toe of right foot Pain in limb Diabetic polyneuropathy associated with type 2 diabetes mellitus (HCC) documented in this encounter [facility] [place] [facility]* Diagnosis Prostate cancer (HCC)- Primary Malignant neoplasm of prostate [facility]* Diagnosis Bladder outlet obstruction- Primary Bladder neck obstruction Urinary catheter in place Other postprocedural status Gross hematuria Prostate cancer (HCC) Malignant neoplasm of prostate Benign prostatic hyperplasia with nocturia documented [facility] this encounter [facility]* Diagnosis Onset Date Resolution Status 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 [facility] Work Phone: Evaluation note* Diagnosis Type 2 diabetes mellitus without complication, without long-term current use of insulin (HCC)- Primary [facility] [place] [facility] Diagnosis Onychomycosis- Primary Dermatophytosis of nail Pain in toe of left foot Pain in limb Pain in toe of right foot Pain in limb Diabetic polyneuropathy associated with type 2 diabetes mellitus (HCC) Diminished pulses in lower extremity Other symptoms involving cardiovascular system documented [facility] this [facility] [place] [facility]* Diagnosis Benign prostatic hyperplasia with nocturia documented in this encounter [facility] note* Diagnosis Type 2 diabetes mellitus without complication, without long-term current use of insulin (HCC) Hyperlipidemia, unspecified hyperlipidemia type Benign prostatic hyperplasia with nocturia documented [facility] [place] [facility]* Diagnosis Type 2 diabetes mellitus without [...] back pain laterality documented in this [facility] [place] [facility]* Diagnosis Chronic low back pain without sciatica, unspecified back pain laterality- Primary Spinal stenosis of lumbar region without neurogenic claudication Spinal stenosis, lumbar region, without neurogenic claudication Type 2 diabetes mellitus without complication, without long-term current use of insulin (HCC) Hyperlipidemia, unspecified hyperlipidemia type documented in this encounter [facility] note* Diagnosis Cellulitis of left toe- Primary [facility] [place] [facility] Diagnosis Onychomycosis- Primary Dermatophytosis of nail Pain in toe of left foot Pain in limb Pain in toe of right foot Pain in limb Diabetic polyneuropathy associated with type 2 diabetes mellitus (HCC) documented [facility] [place] [facility]* Diagnosis Abdominal aortic aneurysm (AAA) without rupture, unspecified part (HCC)- Primary Spinal stenosis, lumbar region, without neurogenic claudication Lumbar radiculopathy Thoracic or lumbosacral neuritis or radiculitis, unspecified documented in this encounter [facility] note* Diagnosis Spinal stenosis, lumbar region, without neurogenic claudication- Primary Lumbar radiculopathy Thoracic or lumbosacral neuritis or radiculitis, unspecified [facility] Diagnosis Hyperlipidemia, unspecified hyperlipidemia type Benign prostatic hyperplasia with nocturia Type 2 diabetes mellitus without complication, without long-term current use of insulin ([facility]) [facility] Diagnosis Spinal stenosis, lumbar region, without neurogenic claudication- Primary Lumbar radiculopathy Thoracic or lumbosacral neuritis or radiculitis, unspecified Lumbar spondylosis Lumbosacral spondylosis without myelopathy [facility] Diagnosis Onychomycosis- Primary Dermatophytosis of nail Pain in toe of left foot Pain in limb Pain in toe of right foot Pain in limb Diabetic polyneuropathy associated with type 2 diabetes mellitus (HCC) Diminished pulses in lower extremity Other symptoms involving cardiovascular system Lumbar spondylosis Lumbosacral spondylosis without myelopathy Lumbar spondylosis Lumbosacral spondylosis without myelopathy [facility] Diagnosis Type 2 diabetes mellitus without [...] spondylosis without myelopathy [facility] Diagnosis Normocytic anemia- Primary Anemia, unspecified Lumbar spondylosis Lumbosacral spondylosis without myelopathy Lumbar spondylosis Lumbosacral spondylosis without myelopathy [facility] Diagnosis Lumbar spondylosis- Primary Lumbosacral spondylosis without myelopathy Lumbar spondylosis Lumbosacral spondylosis without myelopathy Lumbar spondylosis Lumbosacral spondylosis without myelopathy [facility] Diagnosis Abdominal aortic aneurysm (AAA) without rupture, unspecified part (HCC) Lumbar spondylosis Lumbosacral spondylosis without myelopathy [facility] Diagnosis Spinal stenosis of lumbar region with neurogenic claudication Spinal stenosis, lumbar region, with neurogenic claudication Lumbar spondylosis Lumbosacral spondylosis without myelopathy [facility] Diagnosis Hordeolum externum of right lower eyelid- Primary Hordeolum externum Lumbar spondylosis Lumbosacral spondylosis without myelopathy documented [facility] [place] [facility]* Diagnosis Lumbar spondylosis- Primary Lumbosacral spondylosis without myelopathy Spinal stenosis, lumbar region, without neurogenic claudication Lumbar radiculopathy Thoracic or lumbosacral neuritis or radiculitis, unspecified Lumbar spondylosis Lumbosacral spondylosis without myelopathy documented [facility] this [facility] [place] [facility]* Diagnosis Onychomycosis- Primary Dermatophytosis of nail Pain in toe of left foot Pain in limb Pain in toe of right foot Pain in limb Diabetic polyneuropathy associated with type 2 diabetes mellitus (HCC) Lumbar spondylosis Lumbosacral spondylosis without myelopathy documented [facility] this [facility] [place] [facility]* Diagnosis Lumbar spondylosis- Primary Lumbosacral spondylosis without myelopathy documented [facility] this [facility] [place] [facility]* Diagnosis Onset Date Resolution Status Prostate cancer metastatic to intrapelvic lymph node [facility] Work Phone: Evaluation note* Diagnosis Hyperlipidemia, unspecified hyperlipidemia type Benign prostatic hyperplasia with nocturia Type 2 diabetes mellitus without complication, without long-term current use of insulin (HCC) Lumbar spondylosis Lumbosacral spondylosis without myelopathy Lumbar spondylosis Lumbosacral spondylosis without myelopathy documented [facility] this encounter [facility] [place] [facility]* Diagnosis Controlled type 2 diabetes mellitus without complication, without long-term current use of insulin (HCC)- Primary Hyperlipidemia, unspecified hyperlipidemia type Normocytic anemia Anemia, unspecified Lumbar spondylosis Lumbosacral spondylosis without myelopathy documented [facility] [place] [facility]* Diagnosis Lumbar spondylosis- Primary Lumbosacral spondylosis without myelopathy Spinal stenosis, lumbar region, without neurogenic claudication Chronic low back pain without sciatica, unspecified back pain laterality Spinal stenosis of lumbar region with neurogenic claudication Spinal stenosis, lumbar region, with neurogenic claudication Lumbar spondylosis Lumbosacral spondylosis without myelopathy documented [facility] [place] [facility]* Diagnosis Controlled type 2 diabetes mellitus without complication, without long-term current use of insulin (HCC)- Primary Diabetic polyneuropathy associated with type 2 diabetes mellitus (HCC) Prostate cancer (HCC) Malignant neoplasm of prostate Lumbar spondylosis Lumbosacral spondylosis without myelopathy Lumbar radiculopathy Thoracic or lumbosacral neuritis or radiculitis, unspecified 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 Benign prostatic hyperplasia with nocturia Hyperlipidemia, unspecified hyperlipidemia type Lumbar spondylosis Lumbosacral spondylosis without myelopathy [facility] Diagnosis Onychomycosis- Primary Dermatophytosis of nail Pain in toe of left foot Pain in limb Pain in toe of right foot Pain in limb Diabetic polyneuropathy associated with type 2 diabetes mellitus (HCC) Lumbar spondylosis Lumbosacral spondylosis without myelopathy [facility] Diagnosis Spinal stenosis of lumbar region with neurogenic claudication- Primary Spinal stenosis, lumbar region, with neurogenic claudication Lumbar radiculopathy Thoracic or lumbosacral neuritis or radiculitis, unspecified Lumbar spondylosis Lumbosacral spondylosis without myelopathy [facility] Diagnosis Spinal stenosis, lumbar region, with neurogenic claudication- Primary Lumbar radiculopathy Thoracic or lumbosacral neuritis or radiculitis, unspecified Spinal stenosis, lumbar region, with neurogenic claudication Lumbar radiculopathy Thoracic or lumbosacral neuritis or radiculitis, unspecified [facility]* Diagnosis Onychomycosis- Primary Dermatophytosis of nail Pain in toe of left foot Pain in limb Pain in toe of right foot Pain in limb Diabetic polyneuropathy associated with type 2 diabetes mellitus (HCC) Spinal stenosis, lumbar region, with neurogenic claudication Lumbar radiculopathy Thoracic or lumbosacral neuritis or radiculitis, unspecified [facility] Diagnosis 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 [facility] Diagnosis Ectatic abdominal aorta (HCC)- Primary Abdominal aortic ectasia Thrombus of aorta (HCC) Embolism and thrombosis of thoracic aorta [facility] [place] [facility]* Diagnosis Onychomycosis- Primary Dermatophytosis of nail Pain in toe of left foot Pain in limb Pain in toe of right foot Pain in limb Diabetic polyneuropathy associated with type 2 diabetes mellitus (HCC) [facility]* Diagnosis Hyperlipidemia, unspecified hyperlipidemia type Benign prostatic hyperplasia with nocturia Type 2 diabetes mellitus without complication, without long-term current use of insulin ([facility]) documented [facility] this [facility] [place] [facility]* Diagnosis Controlled type 2 diabetes mellitus without complication, without long-term current use of insulin (HCC)- Primary Hyperlipidemia, unspecified hyperlipidemia type Prostate cancer (HCC) Malignant neoplasm of prostate Benign prostatic hyperplasia with nocturia Lumbar spondylosis Lumbosacral spondylosis without myelopathy Lumbar radiculopathy Thoracic or lumbosacral neuritis or radiculitis, unspecified Unsteady gait when walking Encounter for immunization Need for other specified prophylactic vaccination against single bacterial disease [facility] [place] [facility]* Diagnosis Atherosclerosis of aorta (HCC)- Primary Atherosclerosis of aorta Hyperlipidemia, unspecified hyperlipidemia type Essential hypertension Unspecified essential hypertension History of diabetes mellitus Personal history of other endocrine, metabolic, and immunity disorders documented [facility] this [facility] [place] [facility]* Diagnosis Controlled type 2 diabetes mellitus without complication, without long-term current use of insulin ([facility])- Primary documented in this [facility] [place] [facility]* Diagnosis Bacterial conjunctivitis- Primary Other conjunctivitis URI, acute Acute upper respiratory infections of unspecified site [facility] [place] [facility]* Diagnosis Bacterial conjunctivitis- Primary Other conjunctivitis URI, acute Acute upper respiratory infections of unspecified site [facility] [place] [facility]* Diagnosis Persistent cough for 3 weeks or longer- Primary Persistent cough for 3 weeks or longer [facility] Diagnosis Persistent cough for 3 weeks or longer [facility]* Diagnosis Arthritis of both hands- Primary Fall in home, initial encounter Injury of right elbow, initial encounter Abrasion of right elbow, initial encounter Injury of head, initial encounter [facility] Diagnosis Arthritis of both hands [facility]* Diagnosis Atherosclerosis of aorta (HCC) Atherosclerosis of aorta Hyperlipidemia, unspecified hyperlipidemia type documented [facility] [place] [facility]* Diagnosis Constipation, unspecified constipation type- Primary [facility]* Diagnosis Onychomycosis- Primary Dermatophytosis of nail Pain in toe of left foot Pain in limb Pain in toe of right foot Pain in limb Diabetic polyneuropathy associated with type 2 diabetes mellitus (HCC) documented [facility] [place] [facility]* Diagnosis Acute conjunctivitis of right eye, unspecified acute conjunctivitis type- Primary [facility] Diagnosis 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 Other musculoskeletal symptoms referable to limbs Arthritis of both hands [facility] Diagnosis Sinobronchitis- Primary Unspecified sinusitis (chronic) documented [facility] [place] [facility]* Diagnosis Onychomycosis- Primary Dermatophytosis of nail Pain in toe of left foot Pain in limb Pain in toe of right foot Pain in limb Diabetic polyneuropathy associated with type 2 diabetes mellitus (HCC) documented [facility] [place] [facility]* Diagnosis Balanitis- Primary Balanoposthitis documented [facility]* Diagnosis Hyperlipidemia, unspecified hyperlipidemia type Benign prostatic hyperplasia with nocturia Type 2 diabetes mellitus without complication, without long-term current use of insulin (HCC) documented [facility] this [facility] [place] [facility]* Diagnosis Type 2 diabetes mellitus without complication, without long-term current use of insulin (HCC)- Primary Diabetic polyneuropathy associated with type 2 diabetes mellitus (HCC) Hyperlipidemia, unspecified hyperlipidemia type Benign prostatic hyperplasia with nocturia Spinal stenosis, lumbar region, without neurogenic claudication History of prostate cancer Personal history of malignant neoplasm of prostate [facility] Diagnosis Atherosclerosis of aorta (HCC)- Primary Atherosclerosis of aorta Hyperlipidemia, unspecified hyperlipidemia type Essential hypertension Unspecified essential hypertension History of diabetes mellitus Personal history of other endocrine, metabolic, and immunity disorders [facility] [place] [facility]* Diagnosis Onychomycosis- Primary Dermatophytosis of nail Pain in toe of left foot Pain in limb Pain in toe of right foot Pain in limb Diminished pulses in lower extremity Other symptoms involving cardiovascular system Diabetic polyneuropathy associated with type 2 diabetes mellitus (HCC) [facility] Diagnosis Excessive gas- Primary Flatulence, eructation, and gas pain Bloating Flatulence, eructation, and gas pain Incomplete passage of stool [facility] Diagnosis Excessive gas Flatulence, eructation, and gas pain Incomplete passage of stool [facility] Diagnosis Onychomycosis- Primary Dermatophytosis of nail Pain in toe of left foot Pain in limb Pain in toe of right foot Pain in limb Diminished pulses in lower extremity Other symptoms involving cardiovascular system Diabetic polyneuropathy associated with type 2 diabetes mellitus (HCC) [facility]* Diagnosis Rash- Primary Rash and other nonspecific skin eruption [facility] Additional Instructions Please leave the catheter in place to prevent any further urinary retention issues. Please follow-up with urology as directed to discuss further treatment strategies for your prostate cancer and retention problems and return to the ER should you have any further concerns [facility] Work Phone: Hospital Discharge instructions Additional Instructions pt home with zavala. f/u with dr lundberg in office in 1 week for zavala removal [facility] Work Phone: Hospital Discharge instructions Additional Instructions Please follow-up with your urologist the next billable appointment for reevaluation and [facility] Hospital Discharge instructions Additional Instructions Thank you for trusting us with your care today! Please take Tylenol (2 pills, 650 mg), ibuprofen (2 pills, 400 mg) every 6 hours as needed for pain and fever control. Please return to the emergency department if your symptoms change or worsen. Please follow with your primary care physician for further outpatient evaluation and management.[facility] Work Phone: Hospital Discharge instructions Additional Instructions No inflammation around your appendix no kidney stones on CT. Incidental findings of tiny pulmonary nodules on CT scan. Recommend follow-up with your PCP outpatient imagings to evaluate nodules and to follow-up.[facility] Work Phone: Reason for referral (narrative)* Diagnostic Procedure Only (Urgent) - Closed Specialty Diagnoses / Procedures Referred By Contac t Referred To Contact XR IMAGING Diagnoses Finger pain, right Procedures XR DIGIT GENERAL 3V FRONTAL/LAT/OBL RIGHT RADEX FINGR MINIMUM 2 VIEWS Kamlesh Alvarado APRN.PUBLIC HEALTH PROGRAM MANAGER [address] [place] [address] Xr Imaging Referral ID Status Reason Start Date Expiration Date V isits Requested Visits Authorized [id number] Closed Auto-Generate d Referral 03/26/2022 04/25/2023 1 1 [place] for referral (narrative)* Diagnostic Procedure Only (Routine) - Pending Review Specialty Diagnoses / Procedures Referred By Contac t Referred To Contact US IMAGING Diagnoses Ectatic abdominal aorta (HCC) Procedures US SCREENING FOR AAA (2017) US ABDOMINAL AORTA REAL TIME SCREEN STUDY AAA Yolande Warner MD [address] [place] [address] [place] [address] Referral ID Status Reason Start Date Expiration Date Visits Requested Visits Authorized [id number] Pending Review Auto-Generat ed Referral 03/07/2024 06/06/2024 1 1 [place] for referral (narrative)* Outpatient Procedure (Routine) - Closed Specialty Diagnoses / Procedures Referred By Contac t Referred To Contact [facility] Diagnoses Atherosclerosis of aorta (HCC) Procedures US ABD AORTA COMPLETE VAS LAB DUP-SCAN AORTA IVC ILIAC VASCL/[place] [address] [place] [address] [facility] [place] [address] [place] [address] Referral ID Status Reason Start Date Expiration Date V isits Requested Visits Authorized [id number] Closed Auto-Generate d Referral 05/16/2024 05/16/2025 1 1 [place] for referral (narrative)No reason for referral information [facility] Work Phone: Reason for visit Narrative* Diagnostic Procedure Only (Routine) - Closed Specialty Diagnoses / Procedures Referred By Contac t Referred To Contact US IMAGING Diagnoses Ectatic abdominal aorta (HCC) Procedures US SCREENING FOR AAA (2017) US ABDOMINAL AORTA REAL TIME SCREEN STUDY AAA Yolande Warner MD [address] [place] [address] [place] [address] Referral ID Status Reason Start Date Expiration Date V isits Requested Visits Authorized [id number] Closed Auto-Generate d Referral 03/07/2024 06/06/2024 1 1 [place] for visit Narrative* Diagnostic Procedure Only (Urgent) - Closed Specialty Diagnoses / Procedures Referred By Contac t Referred To Contact XR IMAGING Diagnoses Finger pain, right Procedures XR DIGIT GENERAL 3V FRONTAL/LAT/OBL RIGHT RADEX FINGR MINIMUM 2 VIEWS Kamlesh Alvarado APRN.CNP [address] [place] [address] [place] [address] Referral ID Status Reason Start Date Expiration Date V isits Requested Visits Authorized [id number] Closed Auto-Generate d Referral 03/26/2022 04/25/2023 1 1 [place] for visit Narrative* Diagnostic Procedure Only (Routine) - Closed Specialty Diagnoses / Procedures Referred By Contac t Referred To Contact XR IMAGING Diagnoses Arthritis of both hands Procedures XR HAND GENERAL 3V PA/LAT/OBL BILATERAL RADEX HAND MINIMUM 3 VIEWS Yolande Warner MD [address] [place] [address] [place] [address] Referral ID Status Reason Start Date Expiration Date V isits Requested Visits Authorized [id number] Closed Auto-Generate d Referral 07/08/2024 08/07/2025 1 1 [place] for visit Narrative* Diagnostic Procedure Only (Routine) - Closed Specialty Diagnoses / Procedures Referred By Contac t Referred To Contact XR IMAGING Diagnoses Excessive gas Incomplete passage of stool Procedures XR ABDOMEN 2V ROUTINE SUPINE W UPRIGHT/DECUB/CTL RADIOLOGIC EXAM ABDOMEN 2 VIEWS Kamla Crowder PA-C [address] [place] [address] Phone: tel: fax: [place] [address] Referral ID Status Reason Start Date Expiration Date V isits Requested Visits Authorized [id number] Closed Auto-Generate d Referral 02/07/2025 03/09/2026 1 1 [facility] Reason for Referral Specialty Diagnoses / Procedures Referred By Contac t Referred To Contact Urology Diagnoses Bladder pain Elevated PSA Procedures CONSULT TO UROLOGY OFFICE/OUTPATIENT NEW HIGH MDM 60-74 MINUTES Haydee Naylor, RIGGER THIRD.PUBLIC HEALTH PROGRAM MANAGER [address] [place] [address] Referral ID Status Reason Start Date Expiration Date Visits Requested Visits Authorized [id number] Authorized PCP Requested Referral 11/27/2021 11/27/2022 1 1 Specialty Diagnoses / Procedures Referred By Contac t Referred To Contact Urology Diagnoses Bladder pain Benign prostatic hyperplasia with nocturia Procedures CONSULT TO UROLOGY OFFICE/OUTPATIENT [facility] 60-74 MINUTES Podlogar, Haydee, RIGGER THIRD.PUBLIC HEALTH PROGRAM MANAGER [address] [place] [address] Referral ID Status Reason Start Date Expiration Date Visits Requested Visits Authorized [id number] Authorized PCP Requested Referral 12/11/2021 12/11/2022 1 1 Specialty Diagnoses / Procedures Referred By Contac t Referred To Contact Urology Diagnoses Prostate cancer (HCC) Benign prostatic hyperplasia with nocturia Bladder outlet obstruction Procedures CONSULT TO UROLOGY OFFICE/OUTPATIENT [facility] 60-74 MINUTES Yolande Warner MD [address] [place] [address] Referral ID Status Reason Start Date Expiration Date Visits Requested Visits Authorized [id number] Authorized PCP Requested Referral 07/10/2023 1 1 Specialty Diagnoses / Procedures Referred By Contac t Referred To Contact Pain Management Diagnoses Chronic low back pain without sciatica, unspecified back pain laterality Spinal stenosis of lumbar region without neurogenic claudication Procedures CONSULT TO PAIN MGT OFFICE/OUTPATIENT [facility] 60-74 MINUTES Yolande Warner MD [address] [place] [address] Referral ID Status Reason Start Date Expiration Date Visits Requested Visits Authorized [id number] Authorized PCP Requested Referral 11/07/2022 11/07/2023 1 1 Specialty Diagnoses / Procedures Referred By Contac t Referred To Contact CT IMAGING Diagnoses Abdominal aortic aneurysm (AAA) without rupture, unspecified part (HCC) Procedures CTA ABD/PEL W IVCON CT ANGIO ABD&PLVIS CNTRST MTRL W/WO CNTRST Bull Bull MD [address] [facility] [address] [address] [address] Referral ID Status Reason Start Date Expiration Date Visits Requested Visits Authorized [id number] Pending Review Auto-Generat ed Referral 02/19/2023 03/20/2024 1 1 Specialty Diagnoses / Procedures Referred By Contac t Referred To Contact CT IMAGING Diagnoses Abdominal aortic aneurysm (AAA) without rupture, unspecified part (HCC) Procedures CTA ABD/PEL W IVCON CT ANGIO ABD&PLVIS CNTRST MTRL W/WO CNTRST IMGES Bull Lam MD [address] [address] [address] [id number] Referral ID Status Reason Start Date Expiration Date V isits Requested Visits Authorized [id number] Closed Auto-Generate d Referral 02/19/2023 03/20/2024 1 1 Specialty Diagnoses / Procedures Referred By Contac t Referred To Contact CT IMAGING Diagnoses Spinal stenosis of lumbar region with neurogenic claudication Procedures CT LUMBAR SPINE WO IVCON CT LUMBAR SPINE W/O CONTRAST MATERIAL Bull Lam MD [address] [address] [place] [address] Referral ID Status Reason Start Date Expiration Date V isits Requested Visits Authorized [id number] Closed Auto-Generate d Referral 01/22/2023 02/21/2024 1 1 Specialty Diagnoses / Procedures Referred By Contac t Referred To Contact Vascular Medicine Diagnoses Ectatic abdominal aorta (HCC) Thrombus of aorta (HCC) Procedures CONSULT TO VASCULAR MEDICINE OFFICE/OUTPATIENT [facility] MDM 60 MINUTES Yolande Warner MD [address] [place] [address] Referral ID Status Reason Start Date Expiration Date Visits Requested Visits Authorized [id number] Authorized PCP Requested Referral 03/08/2024 03/08/2025 1 1 Specialty Diagnoses / Procedures Referred By Contac t Referred To Contact [facility] Diagnoses Lumbar spondylosis Lumbar radiculopathy Unsteady gait when walking Procedures CONSULT TO PHYSICAL THERAPY PHYSICAL THERAPY EVALUATION HIGH COMPLEX 45 MINS Yolande Warner MD [address] [place] [address] [facility] [address] [address] Referral ID Status Reason Start Date Expiration Date Visits Requested Visits Authorized [id number] Authorized PCP Requested Referral Auto-Generate d Referral 05/10/2024 05/10/2025 99 99 Specialty Diagnoses / Procedures Referred By Contac t Referred To Contact [facility] Diagnoses Arthritis of both hands Procedures 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 EVAL HIGH COMPLEX 60 MINS Yolande Warner MD [address] [place] [address] [facility] [address] [address] Referral ID Status Reason Start Date Expiration Date Visits Requested Visits Authorized [id number] Authorized PCP Requested Referral Auto-Generate d Referral 07/08/2024 07/08/2025 99 99 Specialty Diagnoses / Procedures Referred By Contac t Referred To Contact XR IMAGING Diagnoses Arthritis of both hands Procedures XR HAND GENERAL 3V PA/LAT/OBL BILATERAL RADEX HAND MINIMUM 3 VIEWS Yolande Warner MD [address] [place] [address] [place] [address] Referral ID Status Reason Start Date Expiration Date V isits Requested Visits Authorized [id number] Closed Auto-Generate d Referral 07/08/2024 08/07/2025 1 1 Advance Directives No Advanced Directives Records Found Advance Directive Response Recorded Date/ Time Living Will No May 22, 2021 10:21pm Power of Optical Assistant No May 10:21pm Advance Directive Response Recorded Date/ Time Name of Medical Power of Optical Assistant daughter April 09, 2022 10:07am Living Will No April 09 10:07am Power of Optical Assistant Yes April 09 10:07am Advance Directive Response Recorded Date/ Time Name of Medical Power of Optical Assistant daughter April 09, 2022 10:07am Living Will No May 24, 2022 1:42am Power of Optical Assistant No May 1:42am Advance Directive Response Recorded Date/ Time Name of Medical Power of Optical Assistant daughter April 09, 2022 10:07am Living Will No June 11 2:50pm Power of Optical Assistant No June 11, 2022 2:50pm Advance Directive Response Recorded Date/ Time Name of Medical Power of Optical Assistant daughter April 09, 2022 10:07am Living Will No June 25 4:10pm Power of Optical Assistant No June 25, 2022 4:10pm Advance Directive Response Recorded Date/ Time Name of Medical Power of Optical Assistant quentin April 09, 2022 10:07am Name of Medical Power of Optical Assistant Loren Ott July 03, 2022 10:03pm Living Will Yes July 03 10:03pm Power of Optical Assistant Yes July 03, 2022 10:03pm Advance Directive Response Recorded Date/ Time Name of Medical Power of Optical Assistant Loren Ott July 03, 2022 9:03pm Living Will Yes July 03 9:03pm Power of Optical Assistant Yes July 03, 2022 9:03pm Advance Directive Response Recorded Date/ Time Living Will No August 22, 2 023 4:58am Power of Optical Assistant No August 22, 2023 4:58am Advance Directive Response Recorded Date/ Time Living Will No August 13, 2 023 6:10pm Power of Optical Assistant No August 13, 2023 6:10pm Advance Directive Response Recorded Date/ Time Living Will No August 22, 2 023 5:58am Do you have a Healthcare Power of Optical Assistant? No August 22, 2023 5:58am Advance Directive Response Recorded Date/ Time Do you have a Healthcare Power of Optical Assistant? 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 Chief Complaint review MRI/PET/PSA SPACE OAR,GOLD MARKERS PLACEMENT MALIGNANT NEOPLASM OF PROSTATE OTV otv OTV retention OTV OTV OTV MAXWELL Amb Documentation ZAVALA Reason for Visit Prostate cancer meta static to intrapelvic lymph node 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 Chief Complaint review MRI/PET/PSA SPACE OAR,GOLD MARKERS PLACEMENT MALIGNANT NEOPLASM OF PROSTATE OTV otv OTV retention OTV OTV OTV MAXWELL Amb Documentation ZAVALA CYSTO TURP OLYMPUS CYSTO TURP OLYMPUS Reason for Visit Prostate cancer meta static to intrapelvic lymph node 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 Chief Complaint review MRI/PET/PSA SPACE OAR,GOLD MARKERS PLACEMENT MALIGNANT NEOPLASM OF PROSTATE OTV otv OTV retention OTV OTV OTV MAXWELL Amb Documentation ZAVALA CYSTO TURP OLYMPUS CYSTO TURP OLYMPUS URINARY RETENTION Reason for Visit Prostate cancer meta static to intrapelvic lymph node 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 Chief Complaint OTV OTV MAXWELL Amb Documentation ZAVALA CYSTO TURP OLYMPUS CYSTO TURP OLYMPUS URINARY RETENTION 1 month f/u post RT (prostate) Reason for Visit Prostate cancer meta static to intrapelvic lymph node 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 Chief Complaint MAXWELL 6 month f/u, PSA Prior HEAD urinary retention Reason for Visit Prostate cancer meta static to intrapelvic lymph node Chief Complaint MAXWELL 6 month f/u, PSA Prior HEAD urinary retention BPH Reason for Visit Prostate cancer meta static to intrapelvic lymph node Chief Complaint MAXWELL 6 month f/u, PSA Prior HEAD Reason for Visit Prostate cancer meta static to intrapelvic lymph node Chief Complaint Admit Date BACK PN,BALANCE/RX HERE November 25th, 2 024 9:30am LUMBAR SPINE September 08, 2024 8: 52am RM 4 September 08, 2024 9: 15am Pain November 10, 2024 7:4 0am Reason for Visit Admit Date Balance problem September 08, 2024 8: 52am Lumbar radiculopathy September 08, 2024 8 :52am Lumbar scoliosis September 08, 2024 8: 52am Chief Complaint Admit Date Pain November 10, 2024 7:4 0am LUMBAR SPINE November 25, 2024 8:2 1am RLQ PAIN January 23, 2025 2:51p m Reason for Visit Admit Date Osteopenia determined by x-ray October 8:21am Spinal stenosis of lumbar region with ne urogenic claudication November 25, 2024 8:21am Spondylolisthesis, lumbar region October 302024 8:21am Chief Complaint Admit Date Pain November 10, 2024 7:4 0am LUMBAR SPINE November 25, 2024 8:2 1am RLQ PAIN January 23, 2025 2:51p m INT LABS February 10, 2025 7:47 am 8 MONTH F/U PROSTATE, PSA PRIOR January 7:47am Reason for Visit Admit Date Osteopenia determined by x-ray October 8:21am Spinal stenosis of lumbar region with ne urogenic claudication November 25, 2024 8:21am Spondylolisthesis, lumbar region October 302024 8:21am Prostate cancer metastatic to intrapelvi c lymph node February 13, 2025 7:47am Family History No Family History Records Found Relationship Condition Age at Onset Recorded Date/T christy father Cardiac disease Unknown Diabetes mellitus Unknown mother Myocardial infarction Unknown Alzheimer's disease Unknown grandmother Malignant neoplasm Unknown sister Malignant neoplasm of breast Unknown Summary Purpose Additional Source Comments Source Comments (unrecognize d section and content) In the event this informatio n is protected by the Federal Confidentiality of Alcohol and Drug Abuse Patient Records regulations: The Federal rules restrict any use of the information to criminally investigate or prosecute any alcohol or drug abuse patient.[facility] the event this information is protected by the Federal Confidentiality of Alcohol and Drug Abuse Patient Records regulations: The Federal rules restrict any use of the information to criminally investigate or prosecute any alcohol or drug abuse patient.[facility] the event this information is protected by the Federal Confidentiality of Alcohol and Drug Abuse Patient Records regulations: The Federal rules restrict any use of the information to criminally investigate or prosecute any alcohol or drug abuse patient.[facility] the event this information is protected by the Federal Confidentiality of Alcohol and Drug Abuse Patient Records regulations: The Federal rules restrict any use of the information to criminally investigate or prosecute any alcohol or drug abuse patient.[facility]In the event this information is protected by the Federal Confidentiality of Alcohol and Drug Abuse Patient Records regulations: The Federal rules restrict any use of the information to criminally investigate or prosecute any alcohol or drug abuse patient.[facility]In the event this information is protected by the Federal Confidentiality of Alcohol and Drug Abuse Patient Records regulations: The Federal rules restrict any use of the information to criminally investigate or prosecute any alcohol or drug abuse patient.[facility] ColumbusIn the event this information is protected by the Federal Confidentiality of Alcohol and Drug Abuse Patient Records regulations: The Federal rules restrict any use of the information to criminally investigate or prosecute any alcohol or drug abuse patient.[facility] ColumbusIn the event this information is protected by the Federal Confidentiality of Alcohol and Drug Abuse Patient Records regulations: The Federal rules restrict any use of the information to criminally investigate or prosecute any alcohol or drug abuse patient.[facility] ColumbusIn the event this information is protected by the Federal Confidentiality of Alcohol and Drug Abuse Patient Records regulations: The Federal rules restrict any use of the information to criminally investigate or prosecute any alcohol or drug abuse patient.[facility] ColumbusIn the event this information is protected by the Federal Confidentiality of Alcohol and Drug Abuse Patient Records regulations: The Federal rules restrict any use of the information to criminally investigate or prosecute any alcohol or drug abuse patient.[facility] ColumbusIn the event this information is protected by the Federal Confidentiality of Alcohol and Drug Abuse Patient Records regulations: The Federal rules restrict any use of the information to criminally investigate or prosecute any alcohol or drug abuse patient.[facility]In the event this information is protected by the Federal Confidentiality of Alcohol and Drug Abuse Patient Records regulations: The Federal rules restrict any use of the information to criminally investigate or prosecute any alcohol or drug abuse patient.[facility]In the event this information is protected by the Federal Confidentiality of Alcohol and Drug Abuse Patient Records regulations: The Federal rules restrict any use of the information to criminally investigate or prosecute any alcohol or drug abuse patient.[facility]In the event this information is protected by the Federal Confidentiality of Alcohol and Drug Abuse Patient Records regulations: The Federal rules restrict any use of the information to criminally investigate or prosecute any alcohol or drug abuse patient.[facility] ColumbusIn the event this information is protected by the Federal Confidentiality of Alcohol and Drug Abuse Patient Records regulations: The Federal rules restrict any use of the information to criminally investigate or prosecute any alcohol or drug abuse patient.[facility] ColumbusIn the event this information is protected by the Federal Confidentiality of Alcohol and Drug Abuse Patient Records regulations: The Federal rules restrict any use of the information to criminally investigate or prosecute any alcohol or drug abuse patient.[facility] ColumbusIn the event this information is protected by the Federal Confidentiality of Alcohol and Drug Abuse Patient Records regulations: The Federal rules restrict any use of the information to criminally investigate or prosecute any alcohol or drug abuse patient.[facility] ColumbusIn the event this information is protected by the Federal Confidentiality of Alcohol and Drug Abuse Patient Records regulations: The Federal rules restrict any use of the information to criminally investigate or prosecute any alcohol or drug abuse patient.[facility] ColumbusIn the event this information is protected by the Federal Confidentiality of Alcohol and Drug Abuse Patient Records regulations: The Federal rules restrict any use of the information to criminally investigate or prosecute any alcohol or drug abuse patient.[facility] ColumbusIn the event this information is protected by the Federal Confidentiality of Alcohol and Drug Abuse Patient Records regulations: The Federal rules restrict any use of the information to criminally investigate or prosecute any alcohol or drug abuse patient.[facility] ColumbusIn the event this information is protected by the Federal Confidentiality of Alcohol and Drug Abuse Patient Records regulations: The Federal rules restrict any use of the information to criminally investigate or prosecute any alcohol or drug abuse patient.[facility] ColumbusIn the event this information is protected by the Federal Confidentiality of Alcohol and Drug Abuse Patient Records regulations: The Federal rules restrict any use of the information to criminally investigate or prosecute any alcohol or drug abuse patient.[facility] ColumbusIn the event this information is protected by the Federal Confidentiality of Alcohol and Drug Abuse Patient Records regulations: The Federal rules restrict any use of the information to criminally investigate or prosecute any alcohol or drug abuse patient.[facility]In the event this information is protected by the Federal Confidentiality of Alcohol and Drug Abuse Patient Records regulations: The Federal rules restrict any use of the information to criminally investigate or prosecute any alcohol or drug abuse patient.[facility] ColumbusIn the event this information is protected by the Federal Confidentiality of Alcohol and Drug Abuse Patient Records regulations: The Federal rules restrict any use of the information to criminally investigate or prosecute any alcohol or drug abuse patient.[facility] ColumbusIn the event this information is protected by the Federal Confidentiality of Alcohol and Drug Abuse Patient Records regulations: The Federal rules restrict any use of the information to criminally investigate or prosecute any alcohol or drug abuse patient.[facility] ColumbusIn the event this information is protected by the Federal Confidentiality of Alcohol and Drug Abuse Patient Records regulations: The Federal rules restrict any use of the information to criminally investigate or prosecute any alcohol or drug abuse patient.[facility] ColumbusIn the event this information is protected by the Federal Confidentiality of Alcohol and Drug Abuse Patient Records regulations: The Federal rules restrict any use of the information to criminally investigate or prosecute any alcohol or drug abuse patient.[facility] ColumbusIn the event this information is protected by the Federal Confidentiality of Alcohol and Drug Abuse Patient Records regulations: The Federal rules restrict any use of the information to criminally investigate or prosecute any alcohol or drug abuse patient.[facility] ColumbusIn the event this information is protected by the Federal Confidentiality of Alcohol and Drug Abuse Patient Records regulations: The Federal rules restrict any use of the information to criminally investigate or prosecute any alcohol or drug abuse patient.[facility] ColumbusIn the event this information is protected by the Federal Confidentiality of Alcohol and Drug Abuse Patient Records regulations: The Federal rules restrict any use of the information to criminally investigate or prosecute any alcohol or drug abuse patient.[facility] ColumbusIn the event this information is protected by the Federal Confidentiality of Alcohol and Drug Abuse Patient Records regulations: The Federal rules restrict any use of the information to criminally investigate or prosecute any alcohol or drug abuse patient.[facility] ColumbusIn the event this information is protected by the Federal Confidentiality of Alcohol and Drug Abuse Patient Records regulations: The Federal rules restrict any use of the information to criminally investigate or prosecute any alcohol or drug abuse patient.[facility] ColumbusIn the event this information is protected by the Federal Confidentiality of Alcohol and Drug Abuse Patient Records regulations: The Federal rules restrict any use of the information to criminally investigate or prosecute any alcohol or drug abuse patient.[facility] ColumbusIn the event this information is protected by the Federal Confidentiality of Alcohol and Drug Abuse Patient Records regulations: The Federal rules restrict any use of the information to criminally investigate or prosecute any alcohol or drug abuse patient.[facility] ColumbusIn the event this information is protected by the Federal Confidentiality of Alcohol and Drug Abuse Patient Records regulations: The Federal rules restrict any use of the information to criminally investigate or prosecute any alcohol or drug abuse patient.[facility] ColumbusIn the event this information is protected by the Federal Confidentiality of Alcohol and Drug Abuse Patient Records regulations: The Federal rules restrict any use of the information to criminally investigate or prosecute any alcohol or drug abuse patient.[facility] ColumbusIn the event this information is protected by the Federal Confidentiality of Alcohol and Drug Abuse Patient Records regulations: The Federal rules restrict any use of the information to criminally investigate or prosecute any alcohol or drug abuse patient.[facility] ColumbusIn the event this information is protected by the Federal Confidentiality of Alcohol and Drug Abuse Patient Records regulations: The Federal rules restrict any use of the information to criminally investigate or prosecute any alcohol or drug abuse patient.[facility] ColumbusIn the event this information is protected by the Federal Confidentiality of Alcohol and Drug Abuse Patient Records regulations: The Federal rules restrict any use of the information to criminally investigate or prosecute any alcohol or drug abuse patient.[facility] the event this information is protected by the Federal Confidentiality of Alcohol and Drug Abuse Patient Records regulations: The Federal rules restrict any use of the information to criminally investigate or prosecute any alcohol or drug abuse patient.[facility] ColumbusIn the event this information is protected by the Federal Confidentiality of Alcohol and Drug Abuse Patient Records regulations: The Federal rules restrict any use of the information to criminally investigate or prosecute any alcohol or drug abuse patient.[facility] ColumbusIn the event this information is protected by the Federal Confidentiality of Alcohol and Drug Abuse Patient Records regulations: The Federal rules restrict any use of the information to criminally investigate or prosecute any alcohol or drug abuse patient.[facility]In the event this information is protected by the Federal Confidentiality of Alcohol and Drug Abuse Patient Records regulations: The Federal rules restrict any use of the information to criminally investigate or prosecute any alcohol or drug abuse patient.[facility] ColumbusIn the event this information is protected by the Federal Confidentiality of Alcohol and Drug Abuse Patient Records regulations: The Federal rules restrict any use of the information to criminally investigate or prosecute any alcohol or drug abuse patient.[facility] ColumbusIn the event this information is protected by the Federal Confidentiality of Alcohol and Drug Abuse Patient Records regulations: The Federal rules restrict any use of the information to criminally investigate or prosecute any alcohol or drug abuse patient.[facility] ColumbusIn the event this information is protected by the Federal Confidentiality of Alcohol and Drug Abuse Patient Records regulations: The Federal rules restrict any use of the information to criminally investigate or prosecute any alcohol or drug abuse patient.[facility] ColumbusIn the event this information is protected by the Federal Confidentiality of Alcohol and Drug Abuse Patient Records regulations: The Federal rules restrict any use of the information to criminally investigate or prosecute any alcohol or drug abuse patient.[facility] ColumbusIn the event this information is protected by the Federal Confidentiality of Alcohol and Drug Abuse Patient Records regulations: The Federal rules restrict any use of the information to criminally investigate or prosecute any alcohol or drug abuse patient.[facility] ColumbusIn the event this information is protected by the Federal Confidentiality of Alcohol and Drug Abuse Patient Records regulations: The Federal rules restrict any use of the information to criminally investigate or prosecute any alcohol or drug abuse patient.[facility] ColumbusIn the event this information is protected by the Federal Confidentiality of Alcohol and Drug Abuse Patient Records regulations: The Federal rules restrict any use of the information to criminally investigate or prosecute any alcohol or drug abuse patient.[facility] ColumbusIn the event this information is protected by the Federal Confidentiality of Alcohol and Drug Abuse Patient Records regulations: The Federal rules restrict any use of the information to criminally investigate or prosecute any alcohol or drug abuse patient.[facility] ColumbusIn the event this information is protected by the Federal Confidentiality of Alcohol and Drug Abuse Patient Records regulations: The Federal rules restrict any use of the information to criminally investigate or prosecute any alcohol or drug abuse patient.[facility] ColumbusIn the event this information is protected by the Federal Confidentiality of Alcohol and Drug Abuse Patient Records regulations: The Federal rules restrict any use of the information to criminally investigate or prosecute any alcohol or drug abuse patient.[facility] ColumbusIn the event this information is protected by the Federal Confidentiality of Alcohol and Drug Abuse Patient Records regulations: The Federal rules restrict any use of the information to criminally investigate or prosecute any alcohol or drug abuse patient.[facility] ColumbusIn the event this information is protected by the Federal Confidentiality of Alcohol and Drug Abuse Patient Records regulations: The Federal rules restrict any use of the information to criminally investigate or prosecute any alcohol or drug abuse patient.[facility] ColumbusIn the event this information is protected by the Federal Confidentiality of Alcohol and Drug Abuse Patient Records regulations: The Federal rules restrict any use of the information to criminally investigate or prosecute any alcohol or drug abuse patient.[facility] ColumbusIn the event this information is protected by the Federal Confidentiality of Alcohol and Drug Abuse Patient Records regulations: The Federal rules restrict any use of the information to criminally investigate or prosecute any alcohol or drug abuse patient.[facility] ColumbusIn the event this information is protected by the Federal Confidentiality of Alcohol and Drug Abuse Patient Records regulations: The Federal rules restrict any use of the information to criminally investigate or prosecute any alcohol or drug abuse patient.[facility] ColumbusIn the event this information is protected by the Federal Confidentiality of Alcohol and Drug Abuse Patient Records regulations: The Federal rules restrict any use of the information to criminally investigate or prosecute any alcohol or drug abuse patient.[facility] ColumbusIn the event this information is protected by the Federal Confidentiality of Alcohol and Drug Abuse Patient Records regulations: The Federal rules restrict any use of the information to criminally investigate or prosecute any alcohol or drug abuse patient.[facility] ColumbusIn the event this information is protected by the Federal Confidentiality of Alcohol and Drug Abuse Patient Records regulations: The Federal rules restrict any use of the information to criminally investigate or prosecute any alcohol or drug abuse patient.[facility] ColumbusIn the event this information is protected by the Federal Confidentiality of Alcohol and Drug Abuse Patient Records regulations: The Federal rules restrict any use of the information to criminally investigate or prosecute any alcohol or drug abuse patient.[facility] ColumbusIn the event this information is protected by the Federal Confidentiality of Alcohol and Drug Abuse Patient Records regulations: The Federal rules restrict any use of the information to criminally investigate or prosecute any alcohol or drug abuse patient.[facility] ColumbusIn the event this information is protected by the Federal Confidentiality of Alcohol and Drug Abuse Patient Records regulations: The Federal rules restrict any use of the information to criminally investigate or prosecute any alcohol or drug abuse patient.[facility] ColumbusIn the event this information is protected by the Federal Confidentiality of Alcohol and Drug Abuse Patient Records regulations: The Federal rules restrict any use of the information to criminally investigate or prosecute any alcohol or drug abuse patient.[facility] ColumbusIn the event this information is protected by the Federal Confidentiality of Alcohol and Drug Abuse Patient Records regulations: The Federal rules restrict any use of the information to criminally investigate or prosecute any alcohol or drug abuse patient.[facility] ColumbusIn the event this information is protected by the Federal Confidentiality of Alcohol and Drug Abuse Patient Records regulations: The Federal rules restrict any use of the information to criminally investigate or prosecute any alcohol or drug abuse patient.[facility] ColumbusIn the event this information is protected by the Federal Confidentiality of Alcohol and Drug Abuse Patient Records regulations: The Federal rules restrict any use of the information to criminally investigate or prosecute any alcohol or drug abuse patient.[facility] ColumbusIn the event this information is protected by the Federal Confidentiality of Alcohol and Drug Abuse Patient Records regulations: The Federal rules restrict any use of the information to criminally investigate or prosecute any alcohol or drug abuse patient.[facility] ColumbusIn the event this information is protected by the Federal Confidentiality of Alcohol and Drug Abuse Patient Records regulations: The Federal rules restrict any use of the information to criminally investigate or prosecute any alcohol or drug abuse patient.[facility] ColumbusIn the event this information is protected by the Federal Confidentiality of Alcohol and Drug Abuse Patient Records regulations: The Federal rules restrict any use of the information to criminally investigate or prosecute any alcohol or drug abuse patient.[facility] ColumbusIn the event this information is protected by the Federal Confidentiality of Alcohol and Drug Abuse Patient Records regulations: The Federal rules restrict any use of the information to criminally investigate or prosecute any alcohol or drug abuse patient.[facility] ColumbusIn the event this information is protected by the Federal Confidentiality of Alcohol and Drug Abuse Patient Records regulations: The Federal rules restrict any use of the information to criminally investigate or prosecute any alcohol or drug abuse patient.[facility] ColumbusIn the event this information is protected by the Federal Confidentiality of Alcohol and Drug Abuse Patient Records regulations: The Federal rules restrict any use of the information to criminally investigate or prosecute any alcohol or drug abuse patient.[facility] ColumbusIn the event this information is protected by the Federal Confidentiality of Alcohol and Drug Abuse Patient Records regulations: The Federal rules restrict any use of the information to criminally investigate or prosecute any alcohol or drug abuse patient.[facility] ColumbusIn the event this information is protected by the Federal Confidentiality of Alcohol and Drug Abuse Patient Records regulations: The Federal rules restrict any use of the information to criminally investigate or prosecute any alcohol or drug abuse patient.[facility] ColumbusIn the event this information is protected by the Federal Confidentiality of Alcohol and Drug Abuse Patient Records regulations: The Federal rules restrict any use of the information to criminally investigate or prosecute any alcohol or drug abuse patient.[facility] ColumbusIn the event this information is protected by the Federal Confidentiality of Alcohol and Drug Abuse Patient Records regulations: The Federal rules restrict any use of the information to criminally investigate or prosecute any alcohol or drug abuse patient.[facility] ColumbusIn the event this information is protected by the Federal Confidentiality of Alcohol and Drug Abuse Patient Records regulations: The Federal rules restrict any use of the information to criminally investigate or prosecute any alcohol or drug abuse patient.[facility] ColumbusIn the event this information is protected by the Federal Confidentiality of Alcohol and Drug Abuse Patient Records regulations: The Federal rules restrict any use of the information to criminally investigate or prosecute any alcohol or drug abuse patient.[facility] ColumbusIn the event this information is protected by the Federal Confidentiality of Alcohol and Drug Abuse Patient Records regulations: The Federal rules restrict any use of the information to criminally investigate or prosecute any alcohol or drug abuse patient.[facility] ColumbusIn the event this information is protected by the Federal Confidentiality of Alcohol and Drug Abuse Patient Records regulations: The Federal rules restrict any use of the information to criminally investigate or prosecute any alcohol or drug abuse patient.[facility] ColumbusIn the event this information is protected by the Federal Confidentiality of Alcohol and Drug Abuse Patient Records regulations: The Federal rules restrict any use of the information to criminally investigate or prosecute any alcohol or drug abuse patient.[facility] ColumbusIn the event this information is protected by the Federal Confidentiality of Alcohol and Drug Abuse Patient Records regulations: The Federal rules restrict any use of the information to criminally investigate or prosecute any alcohol or drug abuse patient.[facility] ColumbusIn the event this information is protected by the Federal Confidentiality of Alcohol and Drug Abuse Patient Records regulations: The Federal rules restrict any use of the information to criminally investigate or prosecute any alcohol or drug abuse patient.[facility] ColumbusIn the event this information is protected by the Federal Confidentiality of Alcohol and Drug Abuse Patient Records regulations: The Federal rules restrict any use of the information to criminally investigate or prosecute any alcohol or drug abuse patient.[facility] ColumbusIn the event this information is protected by the Federal Confidentiality of Alcohol and Drug Abuse Patient Records regulations: The Federal rules restrict any use of the information to criminally investigate or prosecute any alcohol or drug abuse patient.[facility] ColumbusIn the event this information is protected by the Federal Confidentiality of Alcohol and Drug Abuse Patient Records regulations: The Federal rules restrict any use of the information to criminally investigate or prosecute any alcohol or drug abuse patient.[facility] Reason for Visit (unrecogniz ed section and content) Reason Comments Abdominal Pain Reason Comments Results Reason Comments 9 week [...] Up Diabetic Foot Care Reason Comments Results [facility] - Other Reason Comments Injections Questions Reason [...] MTRL W/WO CNTRST IMGES Bull Lam MD [address] [place] [address] [place] [address] Referral ID Status Reason Start Date Expiration Date V isits Requested Visits Authorized [id number] Closed Auto-Generate d Referral 02/19/2023 03/20/2024 1 1 Specialty Diagnoses / Procedures Referred By Contac t Referred To Contact CT IMAGING Diagnoses Spinal stenosis of lumbar region with neurogenic claudication Procedures CT LUMBAR SPINE WO IVCON CT LUMBAR SPINE W/O CONTRAST MATERIAL Bull Lam MD [address] [place] [address] [id number] Referral ID Status Reason Start Date Expiration Date V isits Requested Visits Authorized [id number] Closed Auto-Generate d Referral 01/22/2023 02/21/2024 1 1 Reason Comments Eye Problem Right eye possible s [place]. X2days. Reason Comments Low Back Pain Follow Up MBB F/U worked for s hort time. Reason Comments Follow Up 3rd MBB Back Pain Lower Reason Comments Follow Up 6 month Reason Comments Follow Up #2 MBB Back Pain Lower Reason Comments Injections Reason Comments Patient Update Reason Comments Patient Update Appointment Reason Comments Results Reason Comments Established Patient Ingrown Nail Reason Onset Date Comments Refill Request 04/11/2024 Reason Comments Consult Reason Comments Orders Reason Comments question on blood sugar Reason Comments Cough Worse at HS, some co ngestion x 1 week Eye Problem R eye redness, itchi ng, drainage, crusted shut this am Reason Comments Follow Up EC follow up Reason Comments cough x 3 weeks Reason Comments Arthritis Bilateral hands Reason Comments Med Change Request Reason Comments Constipation Some fecal incontine nce with gas. Fecal urgency when he is not constipated. Reason Comments Cough Chest congestion x2 weeks, R eye conjunctivitis x2 days Reason Comments OT EVAL Specialty Diagnoses / Procedures Referred By Edgard t Referred To Contact OCCUPATIONAL THERAPY Diagnoses Arthritis of both hands Procedures 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 THERAPY EVAL HIGH COMPLEX 60 MINS Yolande Warner MD [address] [place] [address] Fely Medrano OTR/L [address] [place] [id number] Referral ID Status Reason Start Date Expiration Date Visits Requested Visits Authorized [id number] Authorized PCP Requested Referral Auto-Generate d Referral 08/31/2024 08/30/2025 99 99 Reason Comments Fax Pts A1C Reason Comments Cough Congestion, sore thr oat x 1 week Reason Comments Established Patient Follow Up Diabetic Foot Check Reason Comments Penis/Scrotum Problem Rash causing itch x 2 days Reason Comments Follow Up 6 month Reason Comments Follow Up Established Patient Reason Comments Nausea Stomach discomfort, Gas, Alternating bowel habits Reason Comments Derm Problem Possible athletes fo ot R foot x2 months Care Teams (unrecognized sec tion and content) Disaster Or Damage Control Specialist Relationship Specialty Start Date End Date Yolande Warner MD [address] [place] [address] PCP - General Family Practice 08/17/18 Disaster Or Damage Control Specialist Relationship Specialty Start Date End Date Yolande Warner MD [address] [place] [address] PCP - General Family Practice 08/17/18 Disaster Or Damage Control Specialist Relationship Specialty Start Date End Date Yolande Warner MD [address] [place] [address] PCP - General Family Practice 08/17/18 Disaster Or Damage Control Specialist Relationship Specialty Start Date End Date Yolande Warner MD [address] [place] [address] PCP - General Family Practice 08/17/18 Disaster Or Damage Control Specialist Relationship Specialty Start Date End Date Yolande Warner MD [address] [place] [address] PCP - General Family Practice 08/17/18 Disaster Or Damage Control Specialist Relationship Specialty Start Date End Date Yolande Warner MD [address] [place] [address] PCP - General Family Practice 08/17/18 Disaster Or Damage Control Specialist Relationship Specialty Start Date End Date Yolande Warner MD [address] [place] [address] PCP - General Family Practice 08/17/18 Disaster Or Damage Control Specialist Relationship Specialty Start Date End Date Yolande Warner MD [address] [place] [address] PCP - General Family Practice 08/17/18 Disaster Or Damage Control Specialist Relationship Specialty Start Date End Date Yolande Warner MD [address] [place] [address] PCP - General Family Practice 08/17/18 Disaster Or Damage Control Specialist Relationship Specialty Start Date End Date Yolande Warner MD [address] [place] [address] PCP - General Family Medicine 08/17/18 Disaster Or Damage Control Specialist Relationship Specialty Start Date End Date Yolande Warner MD [address] [place] [address] PCP - General Family Medicine 08/17/18 Disaster Or Damage Control Specialist Relationship Specialty Start Date End Date Yolande Warner MD [address] [place] [address] PCP - General Family Medicine 08/17/18 Disaster Or Damage Control Specialist Relationship Specialty Start Date End Date Yolande Warner MD [address] [place] [address] PCP - General Family Medicine 08/17/18 Team Status: Active Member Role Status Dates Dr. Perfecto Warner MD Family Provider Active Dr. Perfecto Warner MD Primary Care Provider Acti ve Team Status: Inactive Member Role Status Dates Dr. Perfecto Warner MD Primary Care Provider Acti ve Dr. Jose You DO Attending Provider, Referring P rovider Active Team Status: Inactive Member Role Status Dates Dr. Perfecto Warner MD Primary Care Provider, Ref erring Provider Active Dr. Jose You DO Attending Provider Active Team Status: Active Member Role Status Dates Dr. Perfecto Warner MD Primary Care Provider Acti ve Dr. Jose You DO Attending Provider Active Team Status: Active Member Role Status Dates Dr. Perfecto Warner MD Primary Care Provider Acti ve Dr. Magdi Desir MD Attending Provider Active Dr. Parish Lundberg MD Referring Provider Active Team Status: Active Member Role Status Dates Dr. Perfecto Warner MD Primary Care Provider Acti ve Dr. Jose You DO Attending Provider, Referring P rovider Active Team Status: Inactive Member Role Status Dates Dr. Perfecto Warner MD Primary Care Provider Acti ve Dr. Parish Lundberg MD Admit Provid er, Attending Provider, Referring Provider Active Team Status: Inactive Member Role Status Dates Dr. Perfecto Warner MD Primary Care Provider Acti ve Ed Physician Provider Attending Provider, Emergency Pr ovider Active Team Status: Inactive Member Role Status Dates Dr. Perfecto Warner MD Primary Care Provider Acti ve Dr. Stone Satnam , DO Attending Provider, Liya gurrola Active Team Status: Inactive Member Role Status Dates Dr. Perfecto Warner MD Primary Care Provider Bronwyni cyrus Lundberg MD Attending Provider, Referr ing Provider Active Disaster Or Damage Control Specialist Relationship Specialty Start Date End Date Yolande Warner MD [address] [place] [address] PCP - General Family Medicine 08/17/18 Disaster Or Damage Control Specialist Relationship Specialty Start Date End Date Yolande Warner MD [address] [place] [address] PCP - General Family Medicine 08/17/18 Disaster Or Damage Control Specialist Relationship Specialty Start Date End Date Yolande Warner MD [address] [place] [address] PCP - General Family Medicine 08/17/18 Disaster Or Damage Control Specialist Relationship Specialty Start Date End Date Yolande Warner MD [address] [place] [address] PCP - General Family Medicine 08/17/18 Disaster Or Damage Control Specialist Relationship Specialty Start Date End Date Yolande Warner MD [address] [place] [address] PCP - General Family Medicine 08/17/18 Disaster Or Damage Control Specialist Relationship Specialty Start Date End Date Yolande Warner MD [address] [place] [address] PCP - General Family Medicine 08/17/18 Disaster Or Damage Control Specialist Relationship Specialty Start Date End Date Yolande Warner MD [address] [place] [address] PCP - General Family Medicine 08/17/18 Disaster Or Damage Control Specialist Relationship Specialty Start Date End Date Yolande Warner MD [address] [place] [address] PCP - General Family Medicine 08/17/18 Disaster Or Damage Control Specialist Relationship Specialty Start Date End Date Yolande Warner MD [address] [place] [address] PCP - General Family Medicine 08/17/18 Disaster Or Damage Control Specialist Relationship Specialty Start Date End Date Yolande Warner MD [address] [place] [address] PCP - General Family Medicine 08/17/18 Disaster Or Damage Control Specialist Relationship Specialty Start Date End Date Yolande Warner MD [address] [place] [address] PCP - General Family Medicine 08/17/18 Disaster Or Damage Control Specialist Relationship Specialty Start Date End Date Yolande Warner MD [address] [place] [address] PCP - General Family Medicine 08/17/18 Disaster Or Damage Control Specialist Relationship Specialty Start Date End Date Yolande Warner MD [address] [place] [address] PCP - General Family Medicine 08/17/18 Disaster Or Damage Control Specialist Relationship Specialty Start Date End Date Yolande Warner MD [address] [place] [address] PCP - General Family Medicine 08/17/18 Disaster Or Damage Control Specialist Relationship Specialty Start Date End Date Yolande Warner MD [address] [place] [address] PCP - General Family Medicine 08/17/18 Disaster Or Damage Control Specialist Relationship Specialty Start Date End Date Yolande Warner MD [address] [place] [address] PCP - General Family Medicine 08/17/18 Disaster Or Damage Control Specialist Relationship Specialty Start Date End Date Yolande Warner MD [address] [place] [address] PCP - General Family Medicine 08/17/18 Disaster Or Damage Control Specialist Relationship Specialty Start Date End Date Yolande Warner MD [address] [place] [address] PCP - General Family Medicine 08/17/18 Disaster Or Damage Control Specialist Relationship Specialty Start Date End Date Yolande Warner MD [address] [place] [address] PCP - General Family Medicine 08/17/18 Disaster Or Damage Control Specialist Relationship Specialty Start Date End Date Yolande Warner MD [address] [place] [address] PCP - General Family Medicine 08/17/18 Disaster Or Damage Control Specialist Relationship Specialty Start Date End Date Yolande Warner MD [address] [place] [address] PCP - General Family Medicine 08/17/18 Disaster Or Damage Control Specialist Relationship Specialty Start Date End Date Yolande Warner MD [address] [place] [address] PCP - General Family Medicine 08/17/18 Team Status: Inactive Member Role Status Dates Dr. Perfecto Warner MD Primary Care Provider Acti ve Dr. Jose You , Attending Provider Active Team Status: Inactive Member Role Status Dates Dr. Perfecto Warner MD Primary Care Provider Acti ve Dr. Dhruv Diez , Emergency Provider Active Disaster Or Damage Control Specialist Relationship Specialty Start Date End Date Yolande Warner MD [address] [place] [address] PCP - General Family Medicine 08/17/18 Team Status: Inactive Member Role Status Dates Dr. Perfecto Warner MD Primary Care Provider Acti cyrus Diez , DO Attending Provider, Emergency P izabela Active Disaster Or Damage Control Specialist Relationship Specialty Start Date End Date Yolande Warner MD [address] [place] [address] PCP - General Family Medicine 08/17/18 Disaster Or Damage Control Specialist Relationship Specialty Start Date End Date Yolande Warner MD [address] [place] [address] PCP - General Family Medicine 08/17/18 Disaster Or Damage Control Specialist Relationship Specialty Start Date End Date Yolande Warner MD [address] [place] [address] PCP - General Family Medicine 08/17/18 Disaster Or Damage Control Specialist Relationship Specialty Start Date End Date Yolande Warner MD [address] [place] [address] PCP - General Family Medicine 08/17/18 Disaster Or Damage Control Specialist Relationship Specialty Start Date End Date Yolande Warner MD [address] [place] [address] PCP - General Family Medicine 08/17/18 Disaster Or Damage Control Specialist Relationship Specialty Start Date End Date Yolande Warner MD [address] [place] [address] PCP - General Family Medicine 08/17/18 Disaster Or Damage Control Specialist Relationship Specialty Start Date End Date Yolande Warner MD [address] [place] [address] PCP - General Family Medicine 08/17/18 Disaster Or Damage Control Specialist Relationship Specialty Start Date End Date Yolande Warner MD [address] [place] [address] PCP - General Family Medicine 08/17/18 Disaster Or Damage Control Specialist Relationship Specialty Start Date End Date Yolande Warner MD [address] [place] [address] PCP - General Family Medicine 08/17/18 Disaster Or Damage Control Specialist Relationship Specialty Start Date End Date Yolande Warner MD [address] [place] [address] PCP - General Family Medicine 08/17/18 Disaster Or Damage Control Specialist Relationship Specialty Start Date End Date Yolande Warner MD [address] [place] [address] PCP - General Family Medicine 08/17/18 Disaster Or Damage Control Specialist Relationship Specialty Start Date End Date Yolande Warner MD [address] [place] [address] PCP - General Family Medicine 08/17/18 Disaster Or Damage Control Specialist Relationship Specialty Start Date End Date Yolande Warner MD [address] [place] [address] PCP - General Family Medicine 08/17/18 Disaster Or Damage Control Specialist Relationship Specialty Start Date End Date Yolande Warner MD [address] [place] [address] PCP - General Family Medicine 08/17/18 Team Status: Inactive Member Role Status Dates Dr. Perfecto Warner MD Primary Care Provider Acti ve Dr. Stone Hay , DO Emergency Provider Active Disaster Or Damage Control Specialist Relationship Specialty Start Date End Date Yolande Warner MD [address] [place] [address] PCP - General Family Medicine 08/17/18 Podlogar, Haydee, RIGGER THIRD.PUBLIC HEALTH PROGRAM MANAGER [address] [place] [address] Plasterer Helper Family Medicine 08/06/24 Disaster Or Damage Control Specialist Relationship Specialty Start Date End Date Yolande Warner MD [address] [place] [address] PCP - General Family Medicine 08/17/18 Podlogar, Haydee, RIGGER THIRD.PUBLIC HEALTH PROGRAM MANAGER [address] [place] [address] Plasterer Helper Family Medicine 08/06/24 Disaster Or Damage Control Specialist Relationship Specialty Start Date End Date Yolande Warner MD [address] [place] [address] PCP - General Family Medicine 08/17/18 Podlogar, Haydee, RIGGER THIRD.PUBLIC HEALTH PROGRAM MANAGER [address] [place] [address] Plasterer Helper Family Medicine 08/06/24 Disaster Or Damage Control Specialist Relationship Specialty Start Date End Date Yolande Warner MD [address] [place] [address] PCP - General Family Medicine 08/17/18 Podlogar, Haydee, RIGGER THIRD.PUBLIC HEALTH PROGRAM MANAGER [address] [place] [address] Plasterer Helper Family Medicine 08/06/24 Disaster Or Damage Control Specialist Relationship Specialty Start Date End Date Yolande Warner MD [address] [place] [address] PCP - General Family Medicine 08/17/18 Podlogar, Haydee, RIGGER THIRD.PUBLIC HEALTH PROGRAM MANAGER [address] [place] [address] Plasterer Helper [facility] Medicine 08/06/24 Disaster Or Damage Control Specialist Relationship Specialty Start Date End Date Yolande Warner MD [address] [place] [address] PCP - General Family Medicine 08/17/18 Podlogar, Haydee, RIGGER THIRD.PUBLIC HEALTH PROGRAM MANAGER [address] [place] [address] [facility]/06/[facility] Disaster Or Damage Control Specialist Relationship Specialty Start Date End Date Yolande Warner MD [address] [place] [address] PCP - General Family Medicine 08/17/18 Podlogar, Haydee, RIGGER THIRD.PUBLIC HEALTH PROGRAM MANAGER [address] [place] [address] [facility] 08/06/24 Disaster Or Damage Control Specialist Relationship Specialty Start Date End Date Yolande Warner MD [address] [place] [address] PCP - General Family Medicine 08/17/18 Podlogar, Haydee, RIGGER THIRD.PUBLIC HEALTH PROGRAM MANAGER [address] [place] [address] [facility] 08/06/24 Destiny Serna, RIGGER THIRD.PUBLIC HEALTH PROGRAM MANAGER [address] [place] [address] [facility] 11/11/24 Team Status: Active Member Role Status Dates Dr. Perfecto Warner MD Primary Care Provider Acti ve Team Status: Inactive Member Role Status Dates Dr. Perfecto Warner MD Primary Care Provider Acti ve Start: July 25, 2024 End: July 25, 2024 Dr. Deven Abraham MD Attending Provider Active Start: July 25, 2024 End: July 25, 2024 Dr. Deven Abraham MD Referring Provider Active Start: July 25, 2024 End: July 25, 2024 Team Status: Inactive Member Role Status Dates Dr. Perfecto Warner MD Primary Care Provider Acti ve Start: September 08, 2024 End: September 08, 2024 Dr. Perfecto Warner MD Referring Provider Active Start: September 08, 2024 End: September 08, 2024 Dr. Dandy Dalals MD Attending Provider Active Start: September 08, 2024 End: September 08, 2024 Team Status: Inactive Member Role Status Dates Dr. Perfecto Warner MD Primary Care Provider Acti ve Start: September 08, 2024 End: September 08, 2024 Dr. Mani Kelsey MD Attending Provider Active S tart: September 08, 2024 End: September 08, 2024 Team Status: Inactive Member Role Status Dates Dr. Perfecto Warner MD Primary Care Provider Acti ve Start: November 10, 2024 End: November 10, 2024 Dr. Dandy Dallas MD Attending Provider Active Start: November 10, 2024 End: November 10, 2024 Dr. Dandy Dallas MD Referring Provider Active Start: November 10, 2024 End: November 10, 2024 Disaster Or Damage Control Specialist Relationship Specialty Start Date End Date Yolande Warner MD [address] [place] [address] [place] [address] PCP - General Family Medicine 08/17/18 PodlogarHaydee APRN.PUBLIC HEALTH PROGRAM MANAGER [address] [place] [address] Plasterer Helper [facility] 08/06/24 Destiny Serna APRN.PUBLIC HEALTH PROGRAM MANAGER [address] [place] [address] Plasterer Helper [facility] 11/11/24 11/20/24 Destiny Serna APRN.PUBLIC HEALTH PROGRAM MANAGER [address] [place] [address] [facility] 11/21/24 Disaster Or Damage Control Specialist Relationship Specialty Start Date End Date Yolande Warner MD [address] [place] [address] PCP - General Family Medicine 08/17/18 PodlogarHaydee APRN.PUBLIC HEALTH PROGRAM MANAGER [address] [place] [address] Plasterer Helper [facility] 08/06/24 Destiny Serna APRN.PUBLIC HEALTH PROGRAM MANAGER [address] [place] [address] [facility] 11/21/24 Disaster Or Damage Control Specialist Relationship Specialty Start Date End Date Yolande Warner MD [address] [place] [address] PCP - General Family Medicine 08/17/18 Podlogar, Haydee RIGGER THIRD.PUBLIC HEALTH PROGRAM MANAGER [address] [place] [address] [facility] 08/06/24 Destiny Serna APRN.PUBLIC HEALTH PROGRAM MANAGER [address] [place], [place] [id number] [facility] 11/11/24 11/20/24 Destiny Serna APRN.PUBLIC HEALTH PROGRAM MANAGER [address] [place], [place] [address] [facility] 11/21/24 Team Status: Inactive Member Role Status Dates Dr. Perfecto Warner MD Primary Care Provider Acti ve Start: November 25, 2024 End: November 25, 2024 Dr. Perfecto Warner MD Referring Provider Active Start: November 25, 2024 End: November 25, 2024 Dr. Dandy Dallas MD Attending Provider Active Start: November 25, 2024 End: November 25, 2024 Team Status: Inactive Member Role Status Dates Dr. Perfecto Warner MD Primary Care Provider Acti ve Start: January 23, 2025 End: January 23, 2025 Dr. Yomi Velazco DO Emergency Provider Active Start : January 23, 2025 End: January 23, 2025 Disaster Or Damage Control Specialist Relationship Specialty Start Date End Date Yolande Warner MD [address] [place], [place] [id number] PCP - General Family Medicine 08/17/18 PodlogarHaydee, RIGGER THIRD.PUBLIC HEALTH PROGRAM MANAGER [address] [place], [place] [id number] [facility] 08/06/24 Disaster Or Damage Control Specialist Relationship Specialty Start Date End Date Yolande Warner MD [address] [place], [place] [id number] PCP - General Family Medicine 08/17/18 PodlogaraHydee APRN.PUBLIC HEALTH PROGRAM MANAGER [address] [facility] [place] [address] Plasterer Helper Family [facility] 08/06/24 Team Status: Inactive Member Role Status Dates Dr. Perfecto Warner MD Primary Care Provider Acti ve Start: January 23, 2025 End: January 23, 2025 Dr. Yomi Velazco DO Attending Provider Active Start : January 23, 2025 End: January 23, 2025 Dr. Yomi Velazco DO Emergency Provider Active Start : January 23, 2025 End: January 23, 2025 Team Status: Active Member Role Status Dates Dr. Perfecto Warner MD Primary Care Provider Acti ve Start: February 10, 2025 Dr. Jose You DO Attending Provider Active Start: February 10, 2025 Dr. Jose You DO Referring Provider Active Start: February 10, 2025 Team Status: Inactive Member Role Status Dates Dr. Perfecto Warner MD Primary Care Provider Acti ve Start: February 13, 2025 End: February 13, 2025 Dr. Jose You DO Attending Provider Active Start: February 13, 2025 End: February 13, 2025 Team Status: Inactive Member Role Status Dates Dr. Perfecto Warner MD Primary Care Provider Acti ve Start: February 10, 2025 End: February 10, 2025 Dr. Jose You DO Attending Provider Active Start: February 10, 2025 End: February 10, 2025 Dr. Jose You DO Referring Provider Active Start: February 10, 2025 End: February 10, 2025 Disaster Or Damage Control Specialist Relationship Specialty Start Date End Date Yolande Warner MD [address] [facility] [place] [address] PCP - General Family Medicine 08/17/18 PodlogHaydee locke APRN.PUBLIC HEALTH PROGRAM MANAGER [address] [facility] [place] [address] Plasterer Helper Family [facility] 08/06/24 Destiny Serna APRN.PUBLIC HEALTH PROGRAM MANAGER [address] [place], [place] [address] [facility] 02/09/25 Disaster Or Damage Control Specialist Relationship Specialty Start Date End Date Yolande Warner MD [address] [place], [place] [address] PCP - General Family Medicine 08/17/18 PodlogarHaydee APRN.PUBLIC HEALTH PROGRAM MANAGER [address] [place], [place] [address] [facility] 08/06/24 Destiny Serna APRN.PUBLIC HEALTH PROGRAM MANAGER [address] [place], [place] [id number] [facility] 02/09/25 Goals (unrecognized section and content) Goals may be documented in a n alternate sectionGoals may be documented in an alternate sectionGoals may be documented in an alternate sectionGoals may be documented in an alternate sectionGoals may be documented in an alternate sectionGoals may be documented in an alternate sectionGoals may be documented in an alternate sectionGoals may be documented in an alternate sectionGoals may be documented in an alternate section (unrecognized sect ion and content) No Status Records FoundNo Status Records FoundNo Status Records FoundNo Status Records Found INFORMATION SOURCE (unrecogn ized section and content) DATE CREATED AUTHOR 10/30/2023 [facility] ([place] DATE CREATED AUTHOR AUTHOR'S ORGANIZ ATION 11/17/2024 [facility] DATE CREATED AUTHOR AUTHOR'S ORGANIZ ATION 02/19/2025 [facility] DATE CREATED AUTHOR AUTHOR'S ORGANIZ ATION 02/26/2025 [facility] FOR RECORDS PERTAINING TO PATIENTS WHO ARE [...] BE BASED ON THE PRIMARY CLINICAL RECORDS. [facility] [employer] [facility]. provides no warranty or guarantee of the accuracy or completeness of information in this document.
--- NOTE | 2025-03-10 01:38 | EX.ED.DYSGE1 ---
HPI History of Present Illness Chief Complaint: Dizziness Informant: patient and family Narrative Narrative: Patient is an 84-year-old male with history of BPH [id number] type 2 diabetes hypertension hyperlipidemia. He states his family doctor started him on Zanaflex. He states that he took 2 doses and then this evening fell asleep on the couch. He states when he awoke he stood up and had sensation of dizziness which she describes more as a sense of motion. He states it was hard for him to walk secondary to this. He states he became very anxious following the onset of his symptoms and called his family. Family reports by the time they got to his house he was having improvement of symptoms but they were still present so he was brought to the ER. Patient states that upon arrival to the ER his symptoms have spontaneously resolved He denies any recent injury fever or tinnitus [facility] Medical History Indwelling urethral catheter present Constipation Wears dentures Cancer Diabetes Arthritis High cholesterol Back pain Testicular cancer Home Medications ?Medication ?Instructions ?Recorded ?Last Taken ?Type metformin 500 mg tablet,extended 500 mg PO DAILY 09/07/18 Unknown History release 24 hr Tamsulosin Hcl 0.4 mg PO DAILY 07/13/23 Unknown History lisinopril 5 mg tablet 5 mg PO DAILY 01/11/24 Unknown History aspirin 81 mg chewable tablet 81 mg PO QDAY 07/18/24 Unknown History rosuvastatin 20 mg tablet 20 mg PO QDAY 07/18/24 Unknown History Allergy/AdvReac Type Severity Reaction Status Date / Time Sulfa (Sulfonamide Allergy Fever and Verified 03/10/25 00:32 Antibiotics) skin rash Tetanus Vaccines and Toxoid Allergy Rash Verified 03/10/25 00:32 meperidine (From Demerol) AdvReac Vomiting Verified 03/10/25 00:32 Family History Father Heart disease Diabetes Mother Myocardial infarction Alzheimer disease Grandmother Cancer Sister Breast cancer Surgical History S/P TURP (status post transurethral resection of prostate) Hx of cystoscopy Hx of knee surgery History of removal of testicle Social History Smoking Status: Former smoker pack-years: 30 Tobacco: How many years used: 30 alcohol intake: current alcohol intake frequency: holidays/special occasions only substance use type: does not use diet: diabetic ROS ROS ED Constitutional Constitutional ED: Denies chills or fever(s) Eyes Eyes: Reports blurry vision ENT ENT ED: Denies sore throat Cardiovascular Cardiovascular: Denies chest pain, palpitations or racing heartbeat Respiratory/Chest Respiratory/Chest: Denies cough or dyspnea Gastrointestinal Gastrointestinal: Reports nausea; Denies abdominal pain, diarrhea or vomiting Genitourinary Genitourinary ED: Denies dysuria Musculoskeletal Musculoskeletal: Denies myalgias Integumentary Denies rash Neurologic Neurologic: Reports other Details: Positive dizziness ; Denies headache(s) Psychiatric Psychiatric: Reports anxiety Hematologic/Lymphatic Hematologic/Lymphatic: Denies easy bleeding or easy bruising EXAM Physical Exam Const Vital Signs: 03/10/25 00:32 Temperature 97.3 F L Temperature Source Temporal Pulse Rate 64 Respiratory Rate 18 Blood Pressure 139/75 H Blood Pressure Mean 96 Pulse Ox 99 Oxygen Delivery Method Room Air Positive well nourished and well developed General Appearance ED: well developed; Negative for pallor HEENT HEENT Narrative: Normocephalic atraumatic Bilateral TMs show no sign of infection No tongue or lip swelling no oral lesions no airway edema or compromise Eyes PERRL and EOMs intact bilaterally General Eye ED: Negative for scleral icterus Neck supple Neck Narrative: No nuchal rigidity or meningeal signs Resp normal respiratory effort and clear to auscultation bilaterally Cardio regular rate and regular rhythm Rate: other Other Details: Radial and carotid pulses are equal and symmetric GI normal to inspection, nondistended, normoactive bowel sounds, non-tender, non-distended and no masses Auscultation: normoactive bowel sounds Palpation: soft Back/Spine no CVA tenderness Extremity normal to inspection Neuro oriented x3, CN's II-XII intact bilaterally and no sensory deficits noted Neuro Narrative: GCS of 15 Cranial nerves II through XII are grossly intact; no focal neurologic deficit No pronator drift no dysmetria no truncal ataxia NIH stroke scale score of 0 Positive Hallpike Dior exam on left Sensorium / Orientation: alert Motor Exam: strength 5/5 throughout Psych mental status grossly normal Skin no rashes or lesions noted General Skin Exam: Negative for jaundice or pallor MDM MDM MDM Narrative Medical decision making narrative: Patient arrived to the ER slightly hypertensive but has a past medical history of this. He reported sensation of dizziness that he described as an off-balance sensation after standing up from the couch and after starting a new medication up to his Zanaflex. Chart review reveals that approximately 10% of individuals can experience dizziness with this medication. Upon arrival to the ER his symptoms have spontaneously resolved and his neurologic exam is normal giving him a stroke scale score of 0. Patient symptoms could be from adverse medication reaction exacerbated by anxiety versus TIA. Patient does have risk factors for this with diabetes hypertension and hyper lipidemia. We did discuss performing a head CT as well as basic laboratory studies. The patient states however that his symptoms have completely resolved and as the history and exam indicates that the dizziness was most likely brought on by an adverse reaction to the Zanaflex he does not want to undergo further testing. He was advised that if symptoms return or he changes his mind about testing that he is able to present to the ER at any point for further evaluation. However I do agree that based on his spontaneous resolution of symptoms and the fact that the symptoms began after taking the Zanaflex this is most likely the cause of his dizziness/vertigo. As his vitals and neurologic exam are normal at this time and he can ambulate with a steady gait and wishes to be discharged I will not go against his will and I he will be discharged in stable condition. He does agree to return to the ER if his symptoms return despite holding off on the Zanaflex or worsen in any way History & Record Review Discussion w/independent historian: Patient and Family Discharge Plan Triage Chief Complaint: Dizziness ED Provider: Pancho Weeks Dx/Rx/DC Orders Clinical Impression: Dizziness, History of BPH, Hypertension, Hyperlipidemia, Non-insulin dependent diabetes mellitus Instructions: ED Dizziness, Uncertain Cause Prescriptions: No Action lisinopril 5 mg tablet 5 mg PO DAILY aspirin 81 mg tablet,chewable 81 mg PO QDAY rosuvastatin 20 mg tablet 20 mg PO QDAY metformin 500 MG tablet 500 mg PO DAILY Tamsulosin Hcl 0.4 MG capsule 0.4 mg PO DAILY Primary Care Provider: Perfecto Warner Referrals: Perfecto Warner MD [Primary Care Provider] - Activity Restrictions/Additional Instructions: Your history and exam is most consistent with an adverse medication reaction. Please refrain from taking this medication in order to prevent any recurrence of symptoms. If your symptoms do recur and you are not taking the new medication you should return to the ER for further evaluation Print Language: Bulgarian Disposition Disposition: Home, Self Care Discharge Date/Time: 03/10/25 02:00
[2025-03-10 02:00] VITALS: BP 121/79; PULSE 79; RESP 18; TEMP 36.6; O2SAT 99
== END 2025-03-10 02:00 | disposition home or self-care (01) ==
PROVIDERS: Emergency Provider Emergency Medicine; PCP Family Medicine; Visit Provider Emergency Medicine
DX: R42 Dizziness and giddiness (principal); E11.9 Type 2 diabetes mellitus without complications; I10 Essential (primary) hypertension; N40.0 Benign prostatic hyperplasia without lower urinary tract symptoms; E78.00 Pure hypercholesterolemia, unspecified; Z79.82 Long term (current) use of aspirin; Z79.84 Long term (current) use of oral hypoglycemic drugs; Z79.899 Other long term (current) drug therapy; Z87.891 Personal history of nicotine dependence
CPT/HCPCS: 99282